=== PATIENT | female | born 1970 | race Caucasian/White ===

== ENCOUNTER → 2017-10-29 15:25 | Outpatient (CLI) | payer BC, SELFPAY ==
[2017-10-29 20:28] LABS: Chlamydia Trachomatis by PCR Negative (Negative); Neisserai gonorrhoeae by PCR Negative (Negative); Probe Check PASS; Sample Adequacy Control PASS; Specimen Processing Control PASS
[2017-11-05 15:22] LABS: HPV Reflexed? NOT INDICATED
== END ==
PROVIDERS: Visit Provider Obstetrics & Gynecology
DX: Z12.4 Encounter for screening for malignant neoplasm of cervix (principal)
CPT/HCPCS: 87491; 87591; 88175; G0145

== ENCOUNTER 2017-12-04 11:34 | Day surgery (SDC) | payer BC, SELFPAY ==
[2017-11-26 17:08] LABS: Hematocrit 38.1 % (37-47); Mean Corp Hgb Conc 34.1 g/gl (32-36); Mean Corpuscular Hgb 30.8 pg (27.0-32.0); Mean Corpuscular Volume 90.3 fL (81-99); Mean Platelet Vol. 10.5 fl (6.2-12.0); Platelet Count 314 K/mm3 (150-450); RBC Distribution Width CV 12.5 % (11.6-14.6); RBC Distribution Width SD 40.6 fl (35.1-43.9); Red Blood Count 4.22 M/mm3 (4.2-5.4); White Blood Count 8.9 K/mm3 (4.4-11.0)
[2017-11-26 17:13] LABS: Scan Indicated on CBC? Y/N NO
--- NOTE | 2017-11-28 15:51 | EKG12_ITS ---
Test Reason : RA, SLEEP AP Blood Pressure : / mmHG Vent. Rate : 063 BPM Atrial Rate : 063 BPM P-R Int : 154 ms QRS Dur : 096 ms QT Int : 402 ms P-R-T Axes : 014 024 038 degrees QTc Int : 411 ms Normal sinus rhythm Normal ECG Confirmed by KEIKO ELISE ([id number]), photography editor MATHEUS WESTBROOK ([id number]) on 12/03/2017 2:45:46 PM Referred By: Emmie Parker Confirmed By:KEIKO ELISE
[2017-11-28 16:58] LABS: International Normalized Ratio 1.1; Prothrombin Time (Protime)PT. 13.7 SECONDS (11.7-14.9)
[2017-11-28 16:59] LABS: Partial Thromboplast Time 32.6 Seconds (24.1-36.2)
[2017-11-28 17:24] LABS: AST(SGOT) 15 U/L (15-37); Alanine Aminotransfer ALT/SGPT 19 U/L (13-56); Albumin, Serum 3.7 g/dL (3.2-5.0); Alkaline Phosphatase 44 U/L (45-117); Bilirubin, Direct 0.13 mg/dL (0.00-0.30); Globulin 3.3 g/dL (2.2-4.2); Thyroid Stim Hormone (TSH) 0.62 uIU/mL (0.358-3.74)
[2017-12-04] VITALS (11 sets, daily range): BP systolic 96–137; BP diastolic 64–80; PULSE 58–96; RESP 14–18; TEMP 36.3–37.4; O2SAT 95–100; BMI 29.5
--- NOTE | 2017-12-04 12:58 | PCM.DC.VHY ---
Discharge Diet: No Restrictions Discharge Activity: May Shower, May Take a Tub Bath May resume sexual activity in: 4-6 weeks Change Dressing in (Days):: 4 Remove Dressing in (days):: 4 Cleanse incision/area with: Soap & Water, Keep Dressing Clean & Dry Additional Instructions: You may take Tylenol 500 mg tablets. 1-2 by mouth every 6 hours in addition to other pain meds given as needed for pain. Nothing in vagina for 4-6 wk. No lifting more than 20# for 4-6 wk to allow healing. OK to go up and down stairs as comfortable. Resume walking and measurement advisor activity as tolerated / comfortable. Allergies/Adverse Reactions: Allergies ceftriaxone sodium [From Rocephin] Allergy (Verified 11/27/17 15:00) Rash oxycodone Adverse Reaction (Verified 12/04/17 12:30) Nausea/Vom/Diarrhea Medications to take at Discharge Levothyroxine [Synthroid] 112 mcg PO DAILY 06/25/13 Abatacept [Orencia] 125 mg SQ FR 11/27/17 Biotin 1 mg PO DAILY 11/27/17 Folic Acid 2 mg PO DAILY@0800 11/27/17 Methotrexate 12.5 mg PO FR 11/27/17 Omeprazole 20 mg PO PRN PRN 11/27/17 leucovorin tablet 15 mg PO FR 11/27/17 Docusate Sodium [Colace] 100 mg PO BID PRN #30 cap 12/04/17 Ibuprofen 600 mg PO Q6H PRN PRN #30 tab 12/04/17 traMADol [Ultram (G)] 50 - 100 mg PO Q6H PRN PRN 7 Days #28 tablet 12/04/17 The following prescriptions were given: Ibuprofen 600 mg PO Q6H PRN PRN #30 tab PRN Reason: Mild-Mod Pain (1-5/10) traMADol [Ultram (G)] 50 - 100 mg PO Q6H PRN PRN 7 Days #28 tablet PRN Reason: Mod-Severe Pain (4-10/10) Docusate Sodium [Colace] 100 mg PO BID PRN #30 cap PRN Reason: Constipation Primary Care Physician: Leslie Buchanan MD [Primary Care Provider] - Please Follow Up With: Emmie Parker MD - [phone] When: in two weeks for postoperative appointment as scheduled Proposed Discharge Date: 12/05/17
[2017-12-04] MEDS: Clindamycin 900 MG/50 ML BAG 75 MG IV (13:04)
--- NOTE | 2017-12-04 13:05 | DCINST_ITS ---
Discharge Diet: No Restrictions Discharge Activity: May Shower, May Take a Tub Bath May resume sexual activity in: 4-6 weeks Change Dressing in (Days):: 4 Remove Dressing in (days):: 4 Cleanse incision/area with: Soap & Water, Keep Dressing Clean & Dry Additional Instructions: You may take Tylenol 500 mg tablets. 1-2 by mouth every 6 hours in addition to other pain meds given as needed for pain. Nothing in vagina for 4-6 wk. No lifting more than 20# for 4-6 wk to allow healing. OK to go up and down stairs as comfortable. Resume walking and barrel brander activity as tolerated / comfortable. Allergies/Adverse Reactions: Allergies ceftriaxone sodium [From Rocephin] Allergy (Verified 11/27/17 15:00) Rash oxycodone Adverse Reaction (Verified 12/04/17 12:30) Nausea/Vom/Diarrhea Medications to take at Discharge Levothyroxine [Synthroid] 112 mcg PO DAILY 06/25/13 Abatacept [Orencia] 125 mg SQ FR 11/27/17 Biotin 1 mg PO DAILY 11/27/17 Folic Acid 2 mg PO DAILY@0800 11/27/17 Methotrexate 12.5 mg PO FR 11/27/17 Omeprazole 20 mg PO PRN PRN 11/27/17 leucovorin tablet 15 mg PO FR 11/27/17 Docusate Sodium [Colace] 100 mg PO BID PRN #30 cap 12/04/17 Ibuprofen 600 mg PO Q6H PRN PRN #30 tab 12/04/17 traMADol [Ultram (G)] 50 - 100 mg PO Q6H PRN PRN 7 Days #28 tablet 12/04/17 The following prescriptions were given: Ibuprofen 600 mg PO Q6H PRN PRN #30 tab PRN Reason: Mild-Mod Pain (1-5/10) traMADol [Ultram (G)] 50 - 100 mg PO Q6H PRN PRN 7 Days #28 tablet PRN Reason: Mod-Severe Pain (4-10/10) Docusate Sodium [Colace] 100 mg PO BID PRN #30 cap PRN Reason: Constipation Primary Care Physician: Leslie Buchanan MD [Primary Care Provider] - Please Follow Up With: Emmie Parker MD - [phone] When: in two weeks for postoperative appointment as scheduled Proposed Discharge Date: 12/05/17
--- NOTE | 2017-12-04 13:15 | HYST_PTH ---
PATIENT: JOSE ALFREDO ZAPATA LOC: [facility] [place] U#:[id number] AGE/SX: 47/F ROOM: RE12/04/[address]: Dr. Emmie Parker MD : [id number] BED: DIS: 12/05/2017 SPEC #: [id number] RECD: 12/04/17 16:03 STATUS: MARLO ALON #: [id number] RJ: 12/04/17 13:[address]: Emmie Parker DEPT: SURGICAL PATHOLOGY RECD BY: Talat Davidson ENTERED: 12/05/17 07:47 SP TYPE: HYSTERECT OTHR DR: Dr. Leslie Buchanan MD Tissues: Uterus, NOS Procedures: Surgery Specimen Level V HEADER OPERATION: Hysterectomy, lap-assisted vaginal, salpingectomy PRE-OP DIAGNOSIS: Submucous leiomyoma of uterus, excessive bleeding in the premenopausal period TISSUE SUBMITTED: Cervix, uterus, bilateral fallopian tubes MICROSCOPIC DIAGNOSIS Cervix, uterus and bilateral fallopian tubes, vaginal hysterectomy and bilateral salpingectomy: Cervix ? mild chronic inflammation. Endometrium ? proliferative endometrium. Myometrium ? leiomyomas (largest measuring 4 cm in greatest dimension). Focal adenomyosis. Bilateral fallopian tubes - no pathologic diagnosis. SJ:rosaline 12/06/17 MICROSCOPIC DESCRIPTION Slides are reviewed. GROSS DESCRIPTION Received in fixative is one container labeled with the patient's name and designated uterus, cervix, fallopian tubes. The specimen consists of a hysterectomy specimen consisting of uterus with cervix in multiple pieces weighing 210 gm and measuring in aggregate 14 x 12 x 6 cm. Two pieces appear to contain a portion of the cervix. The ecto- and endocervical mucosa is unremarkable. The portion of endocervical canal in this piece measures 3 cm in length. Two pieces of cervix measure in aggregate 5 x 4 x 2.5 cm. The largest piece of body of the uterus measures 7 x 6.5 x 6 cm. The serosal surface in this piece appears unremarkable. Possible endometrial tissue is noted in this piece which measures 0.1 cm in thickness. Sections of the pieces of uterus reveal multiple nodular masses. The largest nodular mass measures 4 cm in greatest dimension. Sections of these masses reveal lagunas whorled cut surfaces without areas of hemorrhage, necrosis or cystic degeneration. The uninvolved uterine wall measures up to 3 cm in thickness. Also present in the container are detached bilateral fallopian tubes. One of the tubes measure 5 cm in length and 0.3 cm in diameter. The fimbrial end is identified. A Filshie clip is noted at the proximal end of this fallopian tube which appears intact. The second fallopian tube is received in two pieces. One of the pieces consists of proximal end which measures 2.5 cm in length and 0.3 cm in diameter. The second piece consists of fimbrial end measuring 1.5 x 1 x 1 cm. Sections reveal unremarkable cut surfaces. Salesperson Women'S Hats sections are submitted in ten cassettes as follows: 1 & 2 - cervix, 3 & 4 - uterine wall containing endometrium (4 also contains a section of nodular mass), 5 ? largest nodular mass, 6 & 7 ? intermediate size nodular masses, 8 ? smaller nodular masses, 9 ? one fallopian tube, 10 ? second fallopian tube received in two pieces. / JOSEF:rosaline 12/05/17 TC:1 CPT: 24799
[2017-12-04] MEDS: Bupiv/Epi 0.5% Mpf 30 ML Vial (14:45)
--- NOTE | 2017-12-04 15:17 | OP.PCM_ITS ---
Operative Report Date of Procedure: 12/04/17 PROCEDURE: Laparoscopic assisted vaginal hysterectomy. Bilateral salpingectomy Preoperative diagnosis: Enlarged, fibroid uterus. Menorrhagia Excessive bleeding in premenopause Postop diagnosis: Enlarged, fibroid uterus. Menorrhagia Excessive bleeding in premenopause Anesthesia: General Jany Gallardo CRNA and Dr Sorenson Surgeon: Emmie Parker MD Pbx Operator: Aristeo Mari, RAVINDRA Monson EBL 300 cc Complications: none Drains: Fritz draining clear yellow urine 100 cc for case Fluids: replacement LR Findings: On exam under anesthesia, Grade I prolapse of the cervix is noted. At Laparoscopy: the uterus is enlarged with multiple fibroids. Serosal fibroid at L uterine fundus. Pedunculated fibroid in L adnexa. normal fallopian tubes and ovaries bilaterally. Filshie clips in place bilaterally. There are minimal adhesions between omentum and fallopian tubes bilaterally, near Filshie clip application. Gross inspection of the bowel omentum, liver edge and gallbladder WNL. PATH: Uterus (morcellated) and bilateral fallopian tubes Narrative account: After the risks, benefits and alternatives of the procedure were reviewed with the patient , informed consent was obtained. The patient was taken to the Operative room with an IV running . She was positioned in the dorsal supine position on the operating table and given general anesthesia. Once asleep she was positioned to the dorsal lithotomy position with the arms tucked at the sides and prepped and draped in the usual sterile fashion. A Fritz catheter was inserted to drain the bladder. The weighted speculum was placed into the vagina and a single tooth tenaculum was placed at the cervix. A Ariel cannula was inserted into the cervix and secured into placed with the single - toothed tenaculum. Attention was then turned to the anterior abdominal wall. the dehydrator operator's gloves were changed and skin incisions were created at the infraumbilical and suprapubic skin and at a point approximately senior living between the suprapubic and infraumbilical skin incisions. Local anesthesia was used to infiltrate the skin where the trocar incision sites were created. A vertical 5 mm infraumbilical skin incision , a transverse 5 mm suprapubic incision and an transverse 5 mm midline incision were created. A Veress needle was inserted in to the peritoneal cavity at the infraumbilical skin incision while maintaining upward traction of the anterior abdominal wall at the umbilicus. There was free drop of saline, free flow of CO2 and low opening pressure noted. Once the intraabdominal pressure had reached approximately 15 mm Hg, the Veress needle was removed and a bladeless 5 mm trocar was inserted into the peritoneal cavity. Correct placement was confirmed using the laparoscope. Under direct visualization the other two 5 mm bladeless trocars were inserted into the peritoneal cavity. The omentum was taken down from both fallopian tubes and the fallopian tubes were retracted medially and using a LigaSure device the fallopian tubes were divided from the ovary and the mesosalpinx, leaving the fallopian tube free Each fallopian tube was brought through the suprapubic port and set aside for later path review. The uteroovarian pedicles were then divided using a [place] LigaSure device. The broad ligament was then divided down to the level of the round ligament on both sides. The pedunculated fibroid was taken off the uterus at the L adnexa for better visualization and this was left free in the anterior cul de sac. At this point the laparoscopic portion of the case was completed. The trocars were left in place, but the instruments were removed and gas turned off. A sterile drape was used to cover the abdomen. Attention was then turned to the vaginal portion of the case. The Ariel cannula was removed and the single toothed tenaculum repositioned on the cervix. The cervical mucosal was then incised circumferentially using Bovie cautery and a knife. The posterior cul de sac was entered by sharp dissection with Perkins scissors and a weighted speculum was placed into the posterior cul se sac. Dissection then was initiated at the anterior cervix to enter the anterior cul se sac. The uterosacral ligaments were clamped bilaterally with curved Lynne clamps and the pedicles divided and suture ligated and tagged for later identification. Next the cardinal ligament was clamped bilaterally and divided and suture ligated. Adequate hemostasis was noted. The anterior cul de sac peritoneum was then entered by sharp dissection and a narrow Ashburn retractor was placed into the anterior cul de sac to retract the bladder out of harm's way for the remainder of the case. The uterine arteries were clamped bilaterally , divided and suture ligated. At this point little descensus was noted due to the enlarged uterus, and morcellation was begun. Each section was removed by using either the knife or a Perkins scissors. The cervix and sequential portions of the lower uterine segment anteriorly and posteriorly as well as several separate fibroids were removed and set aside. Dissection then continued along each side of the uterus. Each pedicle was secured with a Lynne clamp, divided and suture ligated until ultimately the uterine fundus was reached. The remaining uterus and attached fallopian tubes were surgically amputated and set aside. The pedicles were then suture ligated. The superior pedicles were dry. There was bleeding noted along the posterior vaginal cuff and anterior vaginal cuff. The L uterine angle was oversewn with a figure of eight stitch of 1 Vicryl for hemostasis . The peritoneum was then closed with a running purse string suture of 1 Vicryl, incorporating the L superior pedicle and the uterosacral ligament tags. The vaginal cuff was then reapproximated using interrupted and figure of eight stitches of 1 Vicryl. Excellent hemostasis was noted. The Fritz was attached to the Fritz bag. and clear yellow urine returned. A second look was performed with the laparoscope: excellent hemostasis was noted at all pedicles and at the vaginal cuff. Yahir was sprayed along the cuff and pedicles for additional hemostasis. The pneumoperitoneum was reduced and all instruments and trocars were removed. The skin incisions were closed with 4-0 Monocryl in a subcuticular fashion. Sterile dressings were applied. ( steristrips and op sites) The patient was returned to dorsal supine position and awakened from general anesthesia. She was then transferred to the recovery room bed in stable condition after tolerating the procedure well. Sponge, lap, needle and instrument counts correct times two. Medications given preop and intraoperatively included: Gentamicin and Clindamycin were given IV fashion show director to the operating room , Marcaine with 1/200, 00 epinephrine was used as a subcutaneous injection at the trocar skin incision sites . For a complete listing of medications given preop and intraoperatively, please see the anesthesia record.
[2017-12-04] MEDS: Ketorolac 30 MG/ML Syringe IV ×2 (16:06→22:46)
[2017-12-04] MEDS: HYDROmorphone 1 MG/ML Syringe IV (18:42)
[2017-12-04] MEDS: Lactated Ringers 1,000 ML 125 ML IV (20:27)
[2017-12-04] MEDS: Acetaminophen 500 MG Tablet 1000 MG PO (22:45)
[2017-12-04] MEDS: Docusate Sodium 100 MG Capsule PO (22:45)
[2017-12-05 03:11] VITALS: BP 116/56; PULSE 64; RESP 16; TEMP 37.2; O2SAT 97
[2017-12-05] MEDS: Ketorolac 30 MG/ML Syringe IV ×2 (03:19→10:03)
[2017-12-05] MEDS: Lactated Ringers 1,000 ML 125 ML IV (04:38)
[2017-12-05] MEDS: HYDROmorphone 1 MG/ML Syringe IV (04:38)
[2017-12-05] MEDS: Levothyroxine 112 MCG Tablet PO (06:03)
[2017-12-05 07:01] LABS: Hematocrit 32.7 % (37-47); Mean Corp Hgb Conc 33.6 g/gl (32-36); Mean Corpuscular Hgb 30.9 pg (27.0-32.0); Mean Corpuscular Volume 91.9 fL (81-99); Platelet Count 272 K/mm3 (150-450); RBC Distribution Width CV 12.4 % (11.6-14.6); Red Blood Count 3.56 M/mm3 (4.2-5.4); White Blood Count 11.6 K/mm3 (4.4-11.0)
[2017-12-05 07:04] LABS: Scan Indicated on CBC? Y/N NO
[2017-12-05 07:11] LABS: Anion Gap 6 (5-15); BUN 11 mg/dL (7-18); BUN/Creat Ratio 17.2 RATIO (10-20); Chloride 105 mmol/L (98-107); Creatinine, Serum 0.64 mg/dL (0.55-1.02); EST Glomerular Filtration Rate 105 mL/min (>60); Est Glom Filt Rate - Afr Amer 127 mL/min (>60); Estimated Creatinine Clearance 109.62 ml/min; Glucose 104 mg/dL (74-106); Potassium 3.7 mmol/L (3.5-5.1); Sodium Level 138 mmol/L (136-145)
[2017-12-05] MEDS: Acetaminophen 500 MG Tablet 1000 MG PO (07:24)
[2017-12-05 07:42] VITALS: BP 143/82; PULSE 68; RESP 16; TEMP 36.6; O2SAT 100
[2017-12-05 07:45] VITALS: O2SAT 100
[2017-12-05] MEDS: Polyethylene Glycol 3350 17 GM PACKET PO (07:47)
[2017-12-05] MEDS: Docusate Sodium 100 MG Capsule PO (07:47)
[2017-12-05] MEDS: Folic Acid 1 MG Tablet 2 MG PO (07:47)
--- NOTE | 2017-12-05 09:28 | PCM.PN.OB ---
Subjective: Patient without complaints. Tolerating diet well. Minimal vaginal bleeding. Denies flatus. - Physical Exam Vital Signs AF, VSS Temp Pulse Resp BP Pulse Ox 97.9 F 68 16 143/82 H 100 12/05/17 07:42 12/05/17 07:42 12/05/17 07:42 12/05/17 07:42 12/05/17 07:45 Oxygen Delivery Method Room Air Weight: 196 lb 13.965 oz Body Mass Index (BMI) 29.5 Intake and Output for Last 24 Hours 12/03/17 12/04/17 12/05/17 23:59 23:59 23:59 Intake Total 2146 / 2146 1765 / 1765 Output Total 450 / 450 600 / 600 Balance 1696 / 1696 1165 / 1165 Laboratory Tests Past 24 Hrs 12/05/17 12/05/17 06:40 06:40 WBC 11.6 H RBC 3.56 L Hgb 11.0 L Hct 32.7 L MCV 91.9 MCH 30.9 MCHC 33.6 RDW 12.4 RDW Differential 40.0 Plt Count 272 MPV 10.0 Sodium 138 Potassium 3.7 Chloride 105 Carbon Dioxide 27.0 Anion Gap 6 BUN 11 Creatinine 0.64 Estim Creat Clear Calc 109.62 Est GFR (MDRD) Af Amer 127 Est GFR (MDRD) Non-Af 105 BUN/Creatinine Ratio 17.2 Glucose 104 Calcium 8.0 L Wounds are clean, dry, intact. Good urine output. Medical Necessity - Tobacco Use Smoking Status: Current some day smoker Tobacco Use: Cigarettes Assessment/Plan Postoperative day #1 status post LAVH Doing well. Will release to home later today if tolerating diet well and able to void on own. Patient requests Vicodin for pain control at home as she indicates that Ultram will almost certainly be insufficient. Rx given.
[2017-12-05] MEDS: Enoxaparin 40 MG/0.4 ML Syringe SC (10:03)
== END 2017-12-05 11:00 | disposition home or self-care (01) ==
LOC: SDC 11:35 → AC 11:35 → MS3 16:03
PROVIDERS: Family Provider Family Medicine; PCP Family Medicine; Visit Provider Obstetrics & Gynecology
PROC: 0UT9FZZ Resection of Uterus, Via Natural or Artificial Opening With Percutaneous Endoscopic Assistance (ICD-10-PCS; CPT 58552; principal; 2017-12-04 12:50)
DX: D25.0 Submucous leiomyoma of uterus (principal); N72 Inflammatory disease of cervix uteri; N80.0 Endometriosis of uterus; N92.4 Excessive bleeding in the premenopausal period; R87.612 Low grade squamous intraepithelial lesion on cytologic smear of cervix (LGSIL); M06.9 Rheumatoid arthritis, unspecified; I10 Essential (primary) hypertension; G47.30 Sleep apnea, unspecified; K21.9 Gastro-esophageal reflux disease without esophagitis; F17.210 Nicotine dependence, cigarettes, uncomplicated; Z79.899 Other long term (current) drug therapy; Z98.51 Tubal ligation status
CPT/HCPCS: 00840; 58552; 36415; 80048; 80076; 84443; 85027; 85610; 85730; 86850; 86900; 88307; J7120; J2405

== ENCOUNTER → 2018-02-04 15:50 | Outpatient (CLI) | payer BC, SELFPAY ==
[2018-02-04 18:16] LABS: Absolute Lymphocyte Count 1.82 X10^3/ul (0.83-4.51); Absolute Neutrophil Count 3.7 X10^3/uL (2.0-7.7); Basophil# 0.03 X10^3/uL; Basophil% 0.5 % (0-1); Eosinophils% 1.6 % (0-5); Hematocrit 39.8 % (37-47); Lymphocyte # 1.82 X10^3/ul (4.0); Lymphocyte % 29.9 % (19-41); Mean Corp Hgb Conc 32.7 g/gl (32-36); Mean Corpuscular Hgb 29.5 pg (27.0-32.0); Mean Corpuscular Volume 90.5 fL (81-99); Mean Platelet Vol. 10.3 fl (6.2-12.0); Monocyte# 0.41 X10^3/uL; Monocyte% 6.7 % (0-10); Neutrophil # 3.72 X10^3/uL (2.7-7.7); Neutrophil % 61.1 % (47-70); Platelet Count 378 K/mm3 (150-450); RBC Distribution Width CV 12.9 % (11.6-14.6); RBC Distribution Width SD 42.3 fl (35.1-43.9); White Blood Count 6.1 K/mm3 (4.4-11.0)
[2018-02-04 18:18] LABS: POSITIVE COUNT NO; POSITIVE DIFFERENTIAL NO; POSITIVE MORPHOLOGY NO
[2018-02-04 18:23] LABS: Erythrocyte Sedimentation Rate 4 mm/hr (0-20)
[2018-02-04 18:31] LABS: ALB/GLOB Ratio 1.1 RATIO (0.9-2.4); AST(SGOT) 23 U/L (15-37); Alanine Aminotransfer ALT/SGPT 33 U/L (13-56); Albumin, Serum 4.1 g/dL (3.2-5.0); Alkaline Phosphatase 58 U/L (45-117); Anion Gap 9 (5-15); BUN 18 mg/dL (7-18); BUN/Creat Ratio 20.1 RATIO (10-20); CRP < 2.90 mg/L (0.0-3.0); Calcium,Total 9.2 mg/dL (8.5-10.1); Chloride 105 mmol/L (98-107); EST Glomerular Filtration Rate 71 mL/min (>60); Est Glom Filt Rate - Afr Amer 86 mL/min (>60); Globulin 3.9 g/dL (2.2-4.2); Glucose 80 mg/dL (74-106); Potassium 3.8 mmol/L (3.5-5.1); Sodium Level 142 mmol/L (136-145)
[2018-02-08 20:06] LABS: QNTFERON TB Ag Minus Nil Value 0.03 IU/mL (.); QNTFERON TB Ag Value 0.06 IU/mL (.); QNTFERON TB Mitogen Value > 10.00 IU/mL (.); QNTFERON TB Nil Value 0.03 IU/mL (.)
[2018-02-10 09:04] LABS: QNTIFERON TB Gold Negative (Negative)
== END ==
LOC: MTLAB 15:53
PROVIDERS: Visit Provider Internal Medicine Rheumatology
DX: M06.09 Rheumatoid arthritis without rheumatoid factor, multiple sites (principal); M47.897 Other spondylosis, lumbosacral region; M47.892 Other spondylosis, cervical region; E03.9 Hypothyroidism, unspecified; M79.7 Fibromyalgia; K21.9 Gastro-esophageal reflux disease without esophagitis; Z79.899 Other long term (current) drug therapy
CPT/HCPCS: 36415; 80053; 85025; 85652; 86140; 86480

== ENCOUNTER → 2018-03-14 15:31 | Outpatient (CLI) | payer BC, SELFPAY | PROVIDERS: Family Provider Family Medicine; PCP Family Medicine; Visit Provider Obstetrics & Gynecology | DX: Z12.31 Encounter for screening mammogram for malignant neoplasm of breast (principal) | CPT/HCPCS: 77063; 77067 ==

== ENCOUNTER → 2018-05-23 16:40 | Outpatient (CLI) | payer BC, SELFPAY ==
[2018-05-23 17:53] LABS: Absolute Neutrophil Count 4.6 X10^3/uL (2.0-7.7); Basophil# 0.05 X10^3/uL; Basophil% 0.6 % (0-1); Eosinophil# 0.16 X10^3/uL; Eosinophils% 2.1 % (0-5); Hematocrit 37.4 % (37-47); Hemoglobin 12.6 g/dl (12.0-15.0); Lymphocyte % 30.9 % (19-41); Mean Corp Hgb Conc 33.7 g/gl (32-36); Mean Corpuscular Hgb 30.4 pg (27.0-32.0); Mean Corpuscular Volume 90.3 fL (81-99); Mean Platelet Vol. 10.7 fl (6.2-12.0); Monocyte# 0.54 X10^3/uL; Neutrophil # 4.57 X10^3/uL (2.7-7.7); Neutrophil % 58.9 % (47-70); Platelet Count 338 K/mm3 (150-450); RBC Distribution Width CV 12.7 % (11.6-14.6); RBC Distribution Width SD 41.7 fl (35.1-43.9); Red Blood Count 4.14 M/mm3 (4.2-5.4); White Blood Count 7.8 K/mm3 (4.4-11.0)
[2018-05-23 17:57] LABS: POSITIVE COUNT NO; POSITIVE DIFFERENTIAL NO; POSITIVE MORPHOLOGY NO
[2018-05-23 19:03] LABS: ALB/GLOB Ratio 1.1 RATIO (0.9-2.4); AST(SGOT) 15 U/L (15-37); Alanine Aminotransfer ALT/SGPT 24 U/L (13-56); Albumin, Serum 3.8 g/dL (3.2-5.0); Alkaline Phosphatase 56 U/L (45-117); Anion Gap 6 (5-15); BUN 14 mg/dL (7-18); BUN/Creat Ratio 17.1 RATIO (10-20); Calcium,Total 8.7 mg/dL (8.5-10.1); Chloride 108 mmol/L (98-107); Creatinine, Serum 0.82 mg/dL (0.55-1.02); EST Glomerular Filtration Rate 79 mL/min (>60); Est Glom Filt Rate - Afr Amer 96 mL/min (>60); Globulin 3.6 g/dL (2.2-4.2); Glucose 84 mg/dL (74-106); Potassium 3.8 mmol/L (3.5-5.1); Protein, Total 7.4 g/dL (6.4-8.2); Sodium Level 139 mmol/L (136-145)
== END ==
PROVIDERS: Family Provider Family Medicine; PCP Family Medicine; Referring Provider Internal Medicine Rheumatology; Visit Provider Internal Medicine Rheumatology
DX: M06.09 Rheumatoid arthritis without rheumatoid factor, multiple sites (principal); M47.897 Other spondylosis, lumbosacral region; M47.892 Other spondylosis, cervical region; E03.9 Hypothyroidism, unspecified; M79.7 Fibromyalgia; K21.9 Gastro-esophageal reflux disease without esophagitis; Z79.899 Other long term (current) drug therapy
CPT/HCPCS: 36415; 80053; 85025

== ENCOUNTER → 2018-08-28 07:30 | Outpatient (CLI) | payer BC, SELFPAY ==
[2018-08-28 10:17] LABS: Absolute Lymphocyte Count 1.43 X10^3/ul (0.83-4.51); Absolute Neutrophil Count 3.9 X10^3/uL (2.0-7.7); Basophil# 0.03 X10^3/uL; Basophil% 0.5 % (0-1); Eosinophil# 0.08 X10^3/uL; Eosinophils% 1.4 % (0-5); Hematocrit 40.6 % (37-47); Hemoglobin 13.2 g/dl (12.0-15.0); Lymphocyte # 1.43 X10^3/ul (4.0); Lymphocyte % 24.5 % (19-41); Mean Corp Hgb Conc 32.5 g/gl (32-36); Mean Corpuscular Hgb 30.7 pg (27.0-32.0); Mean Corpuscular Volume 94.4 fL (81-99); Mean Platelet Vol. 10.2 fl (6.2-12.0); Monocyte# 0.39 X10^3/uL; Monocyte% 6.7 % (0-10); Neutrophil # 3.88 X10^3/uL (2.7-7.7); Neutrophil % 66.6 % (47-70); Platelet Count 329 K/mm3 (150-450); RBC Distribution Width CV 13.7 % (11.6-14.6); White Blood Count 5.8 K/mm3 (4.4-11.0)
[2018-08-28 10:18] LABS: POSITIVE COUNT NO; POSITIVE DIFFERENTIAL NO; POSITIVE MORPHOLOGY NO
[2018-08-28 10:34] LABS: ALB/GLOB Ratio 1.2 RATIO (0.9-2.4); AST(SGOT) 16 U/L (15-37); Alanine Aminotransfer ALT/SGPT 28 U/L (13-56); Albumin, Serum 3.8 g/dL (3.2-5.0); Alkaline Phosphatase 47 U/L (45-117); Anion Gap 9 (5-15); BUN 14 mg/dL (7-18); BUN/Creat Ratio 17.8 RATIO (10-20); Calcium,Total 8.8 mg/dL (8.5-10.1); Chloride 104 mmol/L (98-107); Creatinine, Serum 0.79 mg/dL (0.55-1.02); EST Glomerular Filtration Rate 83 mL/min (>60); Est Glom Filt Rate - Afr Amer 100 mL/min (>60); Globulin 3.3 g/dL (2.2-4.2); Glucose 102 mg/dL (74-106); Potassium 3.8 mmol/L (3.5-5.1); Protein, Total 7.1 g/dL (6.4-8.2); Sodium Level 140 mmol/L (136-145)
== END ==
LOC: MTLAB 07:31
PROVIDERS: Family Provider Family Medicine; PCP Family Medicine; Referring Provider Internal Medicine Rheumatology; Visit Provider Internal Medicine Rheumatology
DX: M06.09 Rheumatoid arthritis without rheumatoid factor, multiple sites (principal); M79.7 Fibromyalgia; M47.897 Other spondylosis, lumbosacral region; M47.892 Other spondylosis, cervical region; E03.9 Hypothyroidism, unspecified; K21.9 Gastro-esophageal reflux disease without esophagitis; Z79.899 Other long term (current) drug therapy
CPT/HCPCS: 36415; 80053; 85025

== ENCOUNTER → 2019-01-13 15:40 | Outpatient (CLI) | payer BC, SELFPAY ==
[2017-12-04 16:46] VITALS: BMI 29.5
[2019-01-13 17:57] LABS: Absolute Neutrophil Count 4.1 X10^3/uL (2.0-7.7); Basophil# 0.03 X10^3/uL; Basophil% 0.4 % (0-1); Eosinophil# 0.27 X10^3/uL; Eosinophils% 3.8 % (0-5); Hematocrit 39.2 % (37-47); Hemoglobin 13.2 g/dl (12.0-15.0); Lymphocyte % 29.8 % (19-41); Mean Corp Hgb Conc 33.7 g/gl (32-36); Mean Corpuscular Hgb 30.1 pg (27.0-32.0); Mean Corpuscular Volume 89.5 fL (81-99); Mean Platelet Vol. 10.9 fl (6.2-12.0); Monocyte# 0.49 X10^3/uL; Neutrophil # 4.14 X10^3/uL (2.7-7.7); Neutrophil % 58.7 % (47-70); Platelet Count 318 K/mm3 (150-450); RBC Distribution Width SD 38.7 fl (35.1-43.9); Red Blood Count 4.38 M/mm3 (4.2-5.4); White Blood Count 7.1 K/mm3 (4.4-11.0)
[2019-01-13 18:05] LABS: AST(SGOT) 16 U/L (15-37); Alanine Aminotransfer ALT/SGPT 23 U/L (13-56); Albumin, Serum 3.5 g/dL (3.2-5.0); Alkaline Phosphatase 54 U/L (45-117); Anion Gap 9 (5-15); BUN 19 mg/dL (7-18); Calcium,Total 9.1 mg/dL (8.5-10.1); Chloride 107 mmol/L (98-107); Creatinine, Serum 0.95 mg/dL (0.55-1.02); EST Glomerular Filtration Rate 66 mL/min (>60); Est Glom Filt Rate - Afr Amer 80 mL/min (>60); Globulin 3.5 g/dL (2.2-4.2); Glucose 86 mg/dL (74-106); Potassium 3.8 mmol/L (3.5-5.1); Sodium Level 142 mmol/L (136-145)
[2019-01-13 18:07] LABS: POSITIVE COUNT NO; POSITIVE DIFFERENTIAL NO; POSITIVE MORPHOLOGY NO
== END ==
PROVIDERS: Family Provider Family Medicine; PCP Family Medicine; Referring Provider Internal Medicine Rheumatology; Visit Provider Internal Medicine Rheumatology
DX: M06.09 Rheumatoid arthritis without rheumatoid factor, multiple sites (principal); M79.7 Fibromyalgia; M47.897 Other spondylosis, lumbosacral region; M47.892 Other spondylosis, cervical region; E03.9 Hypothyroidism, unspecified; K21.9 Gastro-esophageal reflux disease without esophagitis; Z79.899 Other long term (current) drug therapy
CPT/HCPCS: 36415; 80053; 85025

== ENCOUNTER → 2019-04-10 14:47 | Outpatient (CLI) | payer BC, SELFPAY ==
[2019-04-10 14:47] VITALS: BMI 29.2
[2019-04-10 15:49] LABS: Absolute Lymphocyte Count 2.02 X10^3/uL (0.83-4.51); Absolute Neutrophil Count 5.7 X10^3/uL (2.0-7.7); Basophil# 0.07 X10^3/uL; Basophil% 0.8 % (0-1); Eosinophil# 0.13 X10^3/uL; Eosinophils% 1.5 % (0-5); Hematocrit 38.3 % (37-47); Hemoglobin 12.8 g/dL (12.0-15.0); Lymphocyte # 2.02 X10^3/ul (4.0); Lymphocyte % 23.7 % (19-41); Mean Corp Hgb Conc 33.4 g/dL (32-36); Mean Corpuscular Hgb 30.8 pg (27.0-32.0); Mean Corpuscular Volume 92.3 fL (81-99); Mean Platelet Vol. 10.6 fl (6.2-12.0); Monocyte# 0.56 X10^3/uL; Monocyte% 6.6 % (0-10); NRBC Flagged by Analyzer 0 % (0-5); Neutrophil # 5.71 X10^3/uL (2.7-7.7); Neutrophil % 66.9 % (47-70); Platelet Count 325 K/mm3 (150-450); RBC Distribution Width CV 12.2 % (11.6-14.6); RBC Distribution Width SD 41.8 fl (35.1-43.9); Red Blood Count 4.15 M/mm3 (4.2-5.4); White Blood Count 8.5 K/mm3 (4.4-11.0)
[2019-04-10 16:48] LABS: ALB/GLOB Ratio 1.1 RATIO (0.9-2.4); AST(SGOT) 15 U/L (15-37); Alanine Aminotransfer ALT/SGPT 23 U/L (13-56); Albumin, Serum 3.8 g/dL (3.2-5.0); Alkaline Phosphatase 53 U/L (45-117); Anion Gap 9 (5-15); BUN 16 mg/dL (7-18); Calcium,Total 9.2 mg/dL (8.5-10.1); Chloride 108 mmol/L (98-107); EST Glomerular Filtration Rate 81 mL/min (>60); Est Glom Filt Rate - Afr Amer 98 mL/min (>60); Globulin 3.4 g/dL (2.2-4.2); Glucose 78 mg/dL (74-106); Potassium 3.5 mmol/L (3.5-5.1); Protein, Total 7.2 g/dL (6.4-8.2); Sodium Level 144 mmol/L (136-145)
== END ==
PROVIDERS: Family Provider Family Medicine; PCP Family Medicine; Referring Provider Internal Medicine Rheumatology; Visit Provider Internal Medicine Rheumatology
DX: M06.09 Rheumatoid arthritis without rheumatoid factor, multiple sites (principal); M47.897 Other spondylosis, lumbosacral region; M47.892 Other spondylosis, cervical region; M79.7 Fibromyalgia; E03.9 Hypothyroidism, unspecified; K21.9 Gastro-esophageal reflux disease without esophagitis; Z79.899 Other long term (current) drug therapy
CPT/HCPCS: 36415; 80053; 85025

== ENCOUNTER 2019-07-04 03:35 | Emergency (ER) | payer BC, SELFPAY ==
[2019-04-15 13:53] VITALS: BMI 29.2
[2019-07-04 03:35] VITALS: BP 138/82; PULSE 95; RESP 20; TEMP 36.6; O2SAT 97; BMI 29.9
--- NOTE | 2019-07-04 03:59 | ED.DCSUM_ITS ---
History of Present Illness Chief Complaint: Flank Pain Informant: Patient - Abdominal Pain/Flank Pain Onset: Hours - 4 Context: Sudden Onset - woke her up from sleep Timing: Continuous Quality: Aching Location: RUQ, Right Flank Current Severity: Moderate Maximum Severity: Severe Worsened by: Nothing Relieved by: Nothing - Nausea/Vomiting/Emesis GI Symptom: Nausea, Vomiting Onset: Today Quality: Nonbilious. Negative for: Blood streaks, Coffee ground, Hematemesis Severity: Moderate - Diarrhea/Melena/Hematochezia GI Symptom: Negative for: Diarrhea, Melena, Hematochezia Associated Symptoms: Negative for: Dysuria, Frequency, Hematuria, Urgency Narrative: Last ate a piece of pizza a couple hours before onset of pain which woke her up from sleep suddenly. Feels like it is going into her right upper back. For the first 3 hours it was pretty intense and not colicky, although now it has eased off but still painful. Prior similar symptoms: No Recent Illness/Hospitalization: No - Past Medical History (1) Hypothyroid Status: Chronic (2) GERD (gastroesophageal reflux disease) Status: Chronic Past Medical History - Allergies and Home Meds Allergies/Adverse Reactions: Allergies ceftriaxone sodium [From Rocephin] Allergy (Verified 07/04/19 03:38) Rash oxycodone Adverse Reaction (Verified 07/04/19 03:38) Nausea/Vom/Diarrhea Primary Care Physician: Dinora Serra DO [Primary Care Provider] - 3-5 Days if not improving Surgical History: hysterectomy Smoking Status: Former smoker Alcohol: None Drugs: None Review of Systems General: Denies: Chills, Fever, Sweats Eyes: Denies: Visual changes - bilaterally, Diplopia ENT: Denies: Rhinorrhea, Sore throat Cardiovascular: Denies: Chest pain, Palpitations Respiratory: Denies: Dyspnea, Cough, Dyspnea on exertion Gastrointestinal: Reports: Abdominal pain, Nausea, Vomiting. Denies: Diarrhea, Melena, Hematochezia Genitourinary: Denies: Dysuria, Hematuria, Frequency Musculoskeletal: Reports: Back pain. Denies: Neck pain, Swelling, Extremity Pain Skin: Denies: Rash, Wounds Neurological: Denies: Headache, Weakness, Numbness Physical Exam Vital Signs/Narrative: Vital Signs Temp Pulse Resp BP Pulse Ox 07/04/19 03:35 97.9 F 95 20 H 138/82 H 97 Inital Vital Signs reviewed: Yes General: Well nourished, Well developed, Acute Distress - mild painful Head: Normocephalic, Atraumatic Eyes: Perrl, EOMI ENT: Moist mucous membranes, No rhinorrhea Neck: Supple, Nontender Cardiovascular: Regular rate, Regular rhythm, No murmurs Respiratory: No distress, CTA bilaterally, Chest nontender Abdomen: Soft, Nondistended, Normal bowel sounds, Tender - diffusely, but RUQ significantly worse, Rodriguez's sign. Negative for: Rebound tenderness Back: Nontender, Normal Inspection. Negative for: CVA tenderness Extremities: Nontender, No edema Skin: Normal color, No rash, No Trauma Neurological: Alert, Oriented x3, Cranial nerves II-XII grossly intact, Normal Strength, Normal Sensation, Normal Gait Psychological: Normal affect, Normal Mood Diagnostic/Tx/Re-eval Impressions Abdomen/Pelvis CT 07/04/19 03:59 IMPRESSION: Scattered diverticulosis with no signs of diverticulitis. Possible recent superimposition of enteritis. No acute appendicitis. No bowel obstruction. Small calcified granulomas within the liver, otherwise normal abdominal viscera. Electronically Signed: Jenny Pizarro MD at 4:48 EST , Service support , 07/04/19 03:59 Abdomen/Pelvis without Cont [CT] Stat Laboratory Results 07/04/19 07/04/19 07/04/19 03:50 03:50 05:12 WBC 8.9 RBC 4.48 Hgb 14.1 Hct 40.9 MCV 91.3 MCH 31.5 MCHC 34.5 RDW Std Deviation 40.4 RDW Coeff of Jyothi 12.1 Plt Count 262 MPV 10.3 Immature Gran % (Auto) 0.400 Neut % (Auto) 86.1 H Lymph % (Auto) 6.6 L Warrick % (Auto) 5.7 Eos % (Auto) 1.0 Baso % (Auto) 0.2 Absolute Neuts (auto) 7.7 Absolute Lymphs (auto) 0.59 L Nucleated RBC % 0 Differential Comment Sodium 142 Potassium 3.9 Chloride 109 H Carbon Dioxide 26.0 Anion Gap 7 BUN 15 Creatinine 0.79 Estim Creat Clear Calc 86.90 Est GFR (MDRD) Af Amer 100 Est GFR (MDRD) Non-Af 82 BUN/Creatinine Ratio 19.0 Glucose 117 H Calcium 8.6 Total Bilirubin 0.60 AST 17 ALT 28 Alkaline Phosphatase 42 L Total Protein 7.0 Albumin 3.7 Globulin 3.3 Albumin/Globulin Ratio 1.1 Lipase 237 Urine Color Yellow Urine Clarity Sl. Cloudy Urine pH 6.0 Ur Specific Fifield 1.015 Urine Protein Negative Urine Glucose (UA) Normal Urine Ketones Negative Urine Occult Blood Negative Urine Nitrite Negative Urine Bilirubin Negative Urine Urobilinogen Normal Ur Leukocyte Esterase Negative Urine RBC 0 SEEN Urine WBC 0 SEEN Ur Squamous Epith Cells 0-5 SEEN Urine Bacteria RARE Urine Mucus 0 SEEN - Medical Decision Making CT shows nonspecific bowel findings but no acute abnormality to explain her symptoms definitively. Her labs are fairly unremarkable. In considering biliary colic, she was initially treated with IV fluids, Zofran, Toradol, morphine. She was still in quite a bit of discomfort and stating that she felt like she was cramping all over and feeling bloated. I performed a bedside ultrasound of the gallbladder which shows no stones or focal shadowing. It appears mildly distended and I see no gross wall thickening. Certainly a calculus cholecystitis is a consideration here but given that she is having diffuse symptoms and tenderness, I wonder if this is GI in etiology. Radiology suggests that her CT may show an enteritis pattern. She has had no diarrhea so far but certainly she is early in the process of what ever is causing this and could develop that. Treated with GI cocktail and simethicone along with dicyclomine. She did not have major improvement. She feels like she needs to have a bowel movement, she eventually went and had a couple of small hard feces, this caused her to vomit, she was not feeling well and given Phenergan and then. Subsequently she is feeling nauseated and finally started having diarrhea which makes more sense given the CT results and her symptoms. This makes me suspect she may just have either viral gastroenteritis or foodborne illness, not that she is necessarily at specific risk for that. She is feeling dizzy/lightheaded, so at this time she is getting another liter of IV fluids and observed. ED Disposition - Plan for ED Patient: Disposition: Home or Assisted Living Diagnosis: Acute gastroenteritis Instructions: GASTROENTERITIS, Viral (6y-Adult) Prescriptions: Ondansetron [Zofran Odt] 4 mg PO Q8H PRN PRN #10 tab PRN Reason: Nausea Prescription Printed Referrals: Dinora Serra DO [Primary Care Provider] - 3-5 Days if not improving Additional Instructions: Plenty of fluids and rest. [place] diet and increase slowly as tolerated. Zofran as needed for nausea. Follow-up with your doctor if not improving.
--- NOTE | 2019-07-04 03:59 | CT_ITS ---
STUDY: CT ABDOMEN AND PELVIS WITHOUT CONTRAST REASON FOR EXAM: Female, 49 years old. Right upper quadrant pain. History of hypertension. RADIATION DOSAGE (If Supplied By Facility): CTDIvol = ( 10.83 ) mGy, DLP = ( 608.69 ) mGycm TECHNIQUE: Transaxial images were obtained from the dome of the diaphragm to the symphysis pubis without oral contrast, and without intravenous contrast. Sagittal and coronal images were reconstructed. Individualized dose optimization techniques were used for this CT. COMPARISON: None. FINDINGS: The visualized lung bases are unremarkable. The visualized portions of the heart are within normal limits. Punctate calcification within the spleen may relate indicate sequela previous granulomatous infection. Otherwise normal liver. Normal gallbladder and extrahepatic biliary system. Normal spleen. Normal pancreas. Normal bilateral adrenal glands. Normal right kidney. Normal left kidney. Some mild hiatal hernia. Remainder of the stomach is unremarkable. Normal small intestine. The radius with some degree of increased fecal debris within the descending colon which may indicate underlying constipation. There is scattered diverticulosis with no signs of diverticulitis. There is fluid within the right colon which may indicate recent enteritis. The appendix is visualized and appears normal. Normal abdominal aorta. Normal inferior vena cava. Normal retroperitoneum. Normal urinary bladder. There is absence of the uterus consistent with a prior hysterectomy. Trace amount of free fluid in the cul-de-sac seen. Normal abdominal wall. There are diffuse degenerative changes of the visualized lumbar spine. CT/Abdomen/Pelvis without Cont IMPRESSION: Scattered diverticulosis with no signs of diverticulitis. Possible recent superimposition of enteritis. No acute appendicitis. No bowel obstruction. Small calcified granulomas within the liver, otherwise normal abdominal viscera. Electronically Signed: Jenny Pizarro MD at 4:48 EST , Service support ,
[2019-07-04 04:05] LABS: Absolute Lymphocyte Count 0.59 X10^3/uL (0.83-4.51); Absolute Neutrophil Count 7.7 X10^3/uL (2.0-7.7); Basophil# 0.02 X10^3/uL; Basophil% 0.2 % (0-1); Eosinophil# 0.09 X10^3/uL; Hematocrit 40.9 % (37-47); Hemoglobin 14.1 g/dL (12.0-15.0); Lymphocyte # 0.59 X10^3/ul (4.0); Lymphocyte % 6.6 % (19-41); Mean Corp Hgb Conc 34.5 g/dL (32-36); Mean Corpuscular Hgb 31.5 pg (27.0-32.0); Mean Corpuscular Volume 91.3 fL (81-99); Mean Platelet Vol. 10.3 fl (6.2-12.0); Monocyte# 0.51 X10^3/uL; Monocyte% 5.7 % (0-10); NRBC Flagged by Analyzer 0 % (0-5); Neutrophil # 7.65 X10^3/uL (2.7-7.7); Neutrophil % 86.1 % (47-70); POSITIVE DIFFERENTIAL YES; Platelet Count 262 K/mm3 (150-450); RBC Distribution Width CV 12.1 % (11.6-14.6); RBC Distribution Width SD 40.4 fl (35.1-43.9); Red Blood Count 4.48 M/mm3 (4.2-5.4); White Blood Count 8.9 K/mm3 (4.4-11.0)
[2019-07-04] MEDS: Ondansetron 4 MG/2 ML Vial IV (04:14)
[2019-07-04] MEDS: Ketorolac 30 MG/ML Syringe IV (04:15)
[2019-07-04] MEDS: Morphine 4 MG/ML Syringe IV (04:16)
[2019-07-04 04:18] LABS: Differential Indicated SCAN CRITERIA MET
[2019-07-04] MEDS: 0.9% Normal Saline 1,000 ML 1000 ML IV (04:18)
[2019-07-04 04:20] LABS: ALB/GLOB Ratio 1.1 RATIO (0.9-2.4); AST(SGOT) 17 U/L (15-37); Alanine Aminotransfer ALT/SGPT 28 U/L (13-56); Albumin, Serum 3.7 g/dL (3.2-5.0); Alkaline Phosphatase 42 U/L (45-117); Anion Gap 7 (5-15); BUN 15 mg/dL (7-18); Calcium,Total 8.6 mg/dL (8.5-10.1); Chloride 109 mmol/L (98-107); Creatinine, Serum 0.79 mg/dL (0.55-1.02); EST Glomerular Filtration Rate 82 mL/min (>60); Est Glom Filt Rate - Afr Amer 100 mL/min (>60); Globulin 3.3 g/dL (2.2-4.2); Glucose 117 mg/dL (74-106); Lipase 237 U/L (73-393); Potassium 3.9 mmol/L (3.5-5.1); Sodium Level 142 mmol/L (136-145)
[2019-07-04 05:17] LABS: Mucous, Urine 0 SEEN /hpf (<or=2+); Red Blood Cells-Urine 0 SEEN /hpf (0-5); White Blood Cells 0 SEEN /hpf (0-5)
[2019-07-04 05:18] LABS: Color, Urine Yellow (Yellow); Glucose, Dipstick Normal (Normal); Ketone-Dipstick Negative (Negative); Leukocyte Esterase-Dipstick Negative /ul (Negative); Nitrite-Dipstick Negative (Negative); Occult Blood-Urine Negative /ul (Negative); Protein-Dipstick Negative (Negative); Specific Gravity, Urine 1.015 (1.002-1.030); Urine Bilirubin Dipstick Negative (Negative); Urine Clarity Sl. Cloudy (Clear); Urine Urobilinogen Normal (Normal)
[2019-07-04 05:23] LABS: Bacteria RARE /hpf (None Seen); Squamous Epithelial Cells - UA 0-5 SEEN /hpf (5-10)
[2019-07-04] MEDS: Dicyclomine 10 MG Capsule 20 MG PO (05:30)
[2019-07-04] MEDS: Mag Hydrox/Al Hydrox/Simeth 30 ML UDC PO (05:31)
[2019-07-04 05:38] VITALS: BP 101/48; PULSE 83; RESP 18; O2SAT 96
[2019-07-04] MEDS: proMETHazine 25 MG/ML Syringe 6.25 MG IV (06:11)
[2019-07-04 07:48] VITALS: BP 112/54; PULSE 92; RESP 16; O2SAT 98
[2019-07-04] MEDS: Acetaminophen 500 MG Tablet 1000 MG PO (07:50)
--- NOTE | 2019-07-04 07:51 | ED.DEP ---
ED Disposition - Plan for ED Patient: Disposition: Home or Assisted Living Diagnosis: Acute gastroenteritis Instructions: GASTROENTERITIS, Viral (6y-Adult) Prescriptions: Ondansetron [Zofran Odt] 4 mg PO Q8H PRN PRN #10 tab PRN Reason: Nausea Prescription Printed Referrals: Dinora Serra DO [Primary Care Provider] - 3-5 Days if not improving Additional Instructions: Plenty of fluids and rest. [place] diet and increase slowly as tolerated. Zofran as needed for nausea. Follow-up with your doctor if not improving.
[2019-07-04] MEDS: 0.9% Normal Saline 1,000 ML 999 ML IV (07:54)
[2019-07-04 09:18] VITALS: BP 124/73; PULSE 84; RESP 16; O2SAT 98
== END 2019-07-04 09:19 | disposition home or self-care (01) ==
PROVIDERS: Emergency Provider Emergency Medicine; Family Provider Family Medicine; PCP Family Medicine
DX: K52.9 Noninfective gastroenteritis and colitis, unspecified (principal); I10 Essential (primary) hypertension; E03.9 Hypothyroidism, unspecified; K21.9 Gastro-esophageal reflux disease without esophagitis; Z88.5 Allergy status to narcotic agent; Z88.1 Allergy status to other antibiotic agents; Z87.891 Personal history of nicotine dependence; Z90.710 Acquired absence of both cervix and uterus
CPT/HCPCS: 74176; 80053; 81001; 83690; 85025; 96361; 96374; 96375; 99285; J7030; A4216; J2405

== ENCOUNTER → 2019-07-09 09:13 | Outpatient (CLI) | payer BC, SELFPAY ==
[2019-07-04 03:35] VITALS: BMI 29.9
[2019-07-09 10:25] LABS: Absolute Lymphocyte Count 2.18 X10^3/uL (0.83-4.51); Absolute Neutrophil Count 4.4 X10^3/uL (2.0-7.7); Basophil# 0.03 X10^3/uL; Basophil% 0.4 % (0-1); Eosinophil# 0.09 X10^3/uL; Eosinophils% 1.2 % (0-5); Hematocrit 37.5 % (37-47); Hemoglobin 12.9 g/dL (12.0-15.0); Lymphocyte # 2.18 X10^3/ul (4.0); Lymphocyte % 30.1 % (19-41); Mean Corp Hgb Conc 34.4 g/dL (32-36); Mean Corpuscular Hgb 31.2 pg (27.0-32.0); Mean Corpuscular Volume 90.8 fL (81-99); Mean Platelet Vol. 10.3 fl (6.2-12.0); Monocyte# 0.52 X10^3/uL; Monocyte% 7.2 % (0-10); NRBC Flagged by Analyzer 0 % (0-5); Neutrophil # 4.38 X10^3/uL (2.7-7.7); Neutrophil % 60.5 % (47-70); Platelet Count 351 K/mm3 (150-450); RBC Distribution Width CV 12.2 % (11.6-14.6); RBC Distribution Width SD 40.1 fl (35.1-43.9); Red Blood Count 4.13 M/mm3 (4.2-5.4); White Blood Count 7.2 K/mm3 (4.4-11.0)
[2019-07-09 10:59] LABS: ALB/GLOB Ratio 1.2 RATIO (0.9-2.4); AST(SGOT) 22 U/L (15-37); Alanine Aminotransfer ALT/SGPT 54 U/L (13-56); Alkaline Phosphatase 44 U/L (45-117); Anion Gap 8 (5-15); BUN 13 mg/dL (7-18); BUN/Creat Ratio 19.7 RATIO (10-20); Calcium,Total 9.3 mg/dL (8.5-10.1); Chloride 107 mmol/L (98-107); Creatinine, Serum 0.66 mg/dL (0.55-1.02); EST Glomerular Filtration Rate 101 mL/min (>60); Est Glom Filt Rate - Afr Amer 122 mL/min (>60); Globulin 3.4 g/dL (2.2-4.2); Glucose 97 mg/dL (74-106); Potassium 3.7 mmol/L (3.5-5.1); Protein, Total 7.4 g/dL (6.4-8.2); Sodium Level 139 mmol/L (136-145)
== END ==
PROVIDERS: Family Provider Family Medicine; PCP Family Medicine; Referring Provider Internal Medicine Rheumatology; Visit Provider Internal Medicine Rheumatology
DX: M06.09 Rheumatoid arthritis without rheumatoid factor, multiple sites (principal); M79.7 Fibromyalgia; E03.9 Hypothyroidism, unspecified; K21.9 Gastro-esophageal reflux disease without esophagitis; Z79.899 Other long term (current) drug therapy
CPT/HCPCS: 36415; 80053; 85025

== ENCOUNTER → 2019-10-02 13:44 | Outpatient (CLI) | payer BC, SELFPAY ==
[2019-10-02 13:54] LABS: Pathologist Comment May follow
[2019-10-02 14:25] LABS: Synovial Fld Mononuclear WBC % 90.6 %; Synovial Fld Polynuclear WBC # 0.042 10^3/uL; Synovial Fld Polynuclear WBC % 9.4 %
[2019-10-02 14:44] LABS: AUTO B FLUID DILUENT BKGD CT WBC <0.1 RBC <0.01 (W<.1,R<.01); Source- Body Fluid SYNOVIAL
[2019-10-02 14:45] LABS: Appearance /Synovial Fluid Clear (CLEAR); Color / Synovial Fluid Yellow (Pale Yellow)
[2019-10-02 14:46] LABS: Body Fluid QC Type(s) BF1Q,BF2Q
[2019-10-02 15:15] LABS: Lymph 7 %; Monocyte /Synovial Fluid 81 %; Neutrophil 12 % (0-25)
[2019-10-02 15:30] LABS: RBC /Synovial Fluid 52 /mm3 (0)
[2019-10-07 10:16] LABS: Pathologist Review Reviewed
== END ==
LOC: LAB 13:46 → LABSPEC 13:49
PROVIDERS: PCP Family Medicine; Referring Provider Internal Medicine Rheumatology; Visit Provider Internal Medicine Rheumatology
DX: M06.09 Rheumatoid arthritis without rheumatoid factor, multiple sites (principal); M79.7 Fibromyalgia; E03.9 Hypothyroidism, unspecified; G47.33 Obstructive sleep apnea (adult) (pediatric); K21.9 Gastro-esophageal reflux disease without esophagitis; Z79.899 Other long term (current) drug therapy
CPT/HCPCS: 87070; 87075; 87205; 89050; 89051; 89060

== ENCOUNTER → 2019-10-15 16:30 | Outpatient (CLI) | payer BC, SELFPAY ==
[2019-10-15 17:56] LABS: Absolute Neutrophil Count 5.5 X10^3/uL (2.0-7.7); Basophil# 0.05 X10^3/uL; Basophil% 0.6 % (0-1); Eosinophil# 0.15 X10^3/uL; Eosinophils% 1.7 % (0-5); Hematocrit 37.7 % (37-47); Hemoglobin 12.3 g/dL (12.0-15.0); Lymphocyte % 28.1 % (19-41); Mean Corp Hgb Conc 32.6 g/dL (32-36); Monocyte% 6.7 % (0-10); NRBC Flagged by Analyzer 0 % (0-5); Neutrophil # 5.54 X10^3/uL (2.7-7.7); Neutrophil % 62.2 % (47-70); Platelet Count 341 K/mm3 (150-450); RBC Distribution Width CV 13.1 % (11.6-14.6); RBC Distribution Width SD 44.6 fl (35.1-43.9); Red Blood Count 3.97 M/mm3 (4.2-5.4); White Blood Count 8.9 K/mm3 (4.4-11.0)
[2019-10-15 18:31] LABS: ALB/GLOB Ratio 1.2 RATIO (0.9-2.4); AST(SGOT) 16 U/L (15-37); Alanine Aminotransfer ALT/SGPT 25 U/L (13-56); Albumin, Serum 3.7 g/dL (3.2-5.0); Alkaline Phosphatase 56 U/L (45-117); Anion Gap 6 (5-15); BUN 19 mg/dL (7-18); BUN/Creat Ratio 26.6 RATIO (10-20); Calcium,Total 8.8 mg/dL (8.5-10.1); Chloride 108 mmol/L (98-107); Creatinine, Serum 0.71 mg/dL (0.55-1.02); EST Glomerular Filtration Rate 92 mL/min (>60); Est Glom Filt Rate - Afr Amer 112 mL/min (>60); Globulin 3.2 g/dL (2.2-4.2); Glucose 69 mg/dL (74-106); Potassium 3.7 mmol/L (3.5-5.1); Protein, Total 6.9 g/dL (6.4-8.2); Sodium Level 141 mmol/L (136-145)
== END ==
PROVIDERS: PCP Family Medicine; Referring Provider Internal Medicine Rheumatology; Visit Provider Internal Medicine Rheumatology
DX: M06.09 Rheumatoid arthritis without rheumatoid factor, multiple sites (principal); E03.9 Hypothyroidism, unspecified; M79.7 Fibromyalgia; K21.9 Gastro-esophageal reflux disease without esophagitis; Z79.899 Other long term (current) drug therapy
CPT/HCPCS: 36415; 80053; 85025

== ENCOUNTER → 2020-01-19 15:59 | Outpatient (CLI) | payer BC, SELFPAY ==
[2020-01-19 17:46] LABS: Absolute Lymphocyte Count 2.11 X10^3/uL (0.83-4.51); Absolute Neutrophil Count 3.5 X10^3/uL (2.0-7.7); Basophil# 0.03 X10^3/uL; Basophil% 0.5 % (0-1); Eosinophil# 0.09 X10^3/uL; Eosinophils% 1.5 % (0-5); Hematocrit 38.6 % (37-47); Hemoglobin 12.6 g/dL (12.0-15.0); Lymphocyte # 2.11 X10^3/ul (4.0); Lymphocyte % 34.2 % (19-41); Mean Corp Hgb Conc 32.6 g/dL (32-36); Mean Corpuscular Hgb 31.1 pg (27.0-32.0); Mean Corpuscular Volume 95.3 fL (81-99); Mean Platelet Vol. 10.5 fl (6.2-12.0); Monocyte# 0.44 X10^3/uL; Monocyte% 7.1 % (0-10); NRBC Flagged by Analyzer 0 % (0-5); Neutrophil # 3.48 X10^3/uL (2.7-7.7); Neutrophil % 56.4 % (47-70); Platelet Count 332 K/mm3 (150-450); RBC Distribution Width CV 11.8 % (11.6-14.6); RBC Distribution Width SD 40.9 fl (35.1-43.9); Red Blood Count 4.05 M/mm3 (4.2-5.4); White Blood Count 6.2 K/mm3 (4.4-11.0)
[2020-01-19 18:03] LABS: ALB/GLOB Ratio 1.1 RATIO (0.9-2.4); AST(SGOT) 15 U/L (15-37); Alanine Aminotransfer ALT/SGPT 22 U/L (13-56); Albumin, Serum 3.6 g/dL (3.2-5.0); Alkaline Phosphatase 46 U/L (45-117); Anion Gap 7 (5-15); BUN 17 mg/dL (7-18); BUN/Creat Ratio 23.4 RATIO (10-20); Calcium,Total 9.4 mg/dL (8.5-10.1); Chloride 101 mmol/L (98-107); Creatinine, Serum 0.73 mg/dL (0.55-1.02); EST Glomerular Filtration Rate 90 mL/min (>60); Est Glom Filt Rate - Afr Amer 109 mL/min (>60); Globulin 3.2 g/dL (2.2-4.2); Glucose 99 mg/dL (74-106); Potassium 3.8 mmol/L (3.5-5.1); Protein, Total 6.8 g/dL (6.4-8.2); Sodium Level 137 mmol/L (136-145)
== END ==
PROVIDERS: PCP Family Medicine; Referring Provider Internal Medicine Rheumatology; Visit Provider Internal Medicine Rheumatology
DX: M06.09 Rheumatoid arthritis without rheumatoid factor, multiple sites (principal); M79.7 Fibromyalgia; M25.561 Pain in right knee; E03.9 Hypothyroidism, unspecified; G47.33 Obstructive sleep apnea (adult) (pediatric); K21.9 Gastro-esophageal reflux disease without esophagitis; Z79.899 Other long term (current) drug therapy
CPT/HCPCS: 36415; 80053; 85025

== ENCOUNTER → 2020-04-20 16:16 | Outpatient (CLI) | payer BC, SELFPAY ==
[2020-04-20 18:07] LABS: Absolute Lymphocyte Count 1.87 X10^3/uL (0.83-4.51); Absolute Neutrophil Count 3.4 X10^3/uL (2.0-7.7); Basophil# 0.05 X10^3/uL; Basophil% 0.9 % (0-1); Eosinophils% 1.7 % (0-5); Hematocrit 40.7 % (37-47); Hemoglobin 13.4 g/dL (12.0-15.0); Lymphocyte # 1.87 X10^3/ul (4.0); Lymphocyte % 31.9 % (19-41); Mean Corp Hgb Conc 32.9 g/dL (32-36); Mean Corpuscular Hgb 30.5 pg (27.0-32.0); Mean Corpuscular Volume 92.7 fL (81-99); Mean Platelet Vol. 10.3 fl (6.2-12.0); Monocyte# 0.44 X10^3/uL; Monocyte% 7.5 % (0-10); NRBC Flagged by Analyzer 0 % (0-5); Neutrophil # 3.37 X10^3/uL (2.7-7.7); Neutrophil % 57.5 % (47-70); Platelet Count 353 K/mm3 (150-450); RBC Distribution Width CV 12.2 % (11.6-14.6); RBC Distribution Width SD 41.9 fl (35.1-43.9); Red Blood Count 4.39 M/mm3 (4.2-5.4); White Blood Count 5.9 K/mm3 (4.4-11.0)
[2020-04-20 18:24] LABS: AST(SGOT) 12 U/L (15-37); Alanine Aminotransfer ALT/SGPT 22 U/L (13-56); Albumin, Serum 3.7 g/dL (3.2-5.0); Alkaline Phosphatase 56 U/L (45-117); Anion Gap 4 (5-15); BUN 14 mg/dL (7-18); BUN/Creat Ratio 18.1 RATIO (10-20); Calcium,Total 9.1 mg/dL (8.5-10.1); Chloride 107 mmol/L (98-107); Creatinine, Serum 0.77 mg/dL (0.55-1.02); EST Glomerular Filtration Rate 84 mL/min (>60); Est Glom Filt Rate - Afr Amer 102 mL/min (>60); Globulin 3.8 g/dL (2.2-4.2); Glucose 117 mg/dL (74-106); Potassium 3.3 mmol/L (3.5-5.1); Protein, Total 7.5 g/dL (6.4-8.2); Sodium Level 140 mmol/L (136-145)
== END ==
PROVIDERS: PCP Family Medicine; Referring Provider Internal Medicine Rheumatology; Visit Provider Internal Medicine Rheumatology
DX: M06.09 Rheumatoid arthritis without rheumatoid factor, multiple sites (principal); M19.041 Primary osteoarthritis, right hand; E03.9 Hypothyroidism, unspecified; M79.7 Fibromyalgia; G47.33 Obstructive sleep apnea (adult) (pediatric); K21.9 Gastro-esophageal reflux disease without esophagitis; Z79.899 Other long term (current) drug therapy
CPT/HCPCS: 36415; 80053; 85025

== ENCOUNTER → 2020-08-23 16:38 | Outpatient (CLI) | payer BC, SELFPAY ==
[2020-08-23 18:01] LABS: Absolute Lymphocyte Count 2.03 X10^3/uL (0.83-4.51); Absolute Neutrophil Count 3.5 X10^3/uL (2.0-7.7); Basophil# 0.05 X10^3/uL; Basophil% 0.8 % (0-1); Eosinophil# 0.11 X10^3/uL; Eosinophils% 1.8 % (0-5); Hematocrit 40.2 % (37-47); Hemoglobin 12.9 g/dL (12.0-15.0); Lymphocyte # 2.03 X10^3/ul (4.0); Lymphocyte % 33.1 % (19-41); Mean Corp Hgb Conc 32.1 g/dL (32-36); Mean Corpuscular Hgb 30.4 pg (27.0-32.0); Mean Corpuscular Volume 94.8 fL (81-99); Mean Platelet Vol. 10.7 fl (6.2-12.0); Monocyte# 0.45 X10^3/uL; Monocyte% 7.3 % (0-10); NRBC Flagged by Analyzer 0 % (0-5); Neutrophil # 3.48 X10^3/uL (2.7-7.7); Neutrophil % 56.7 % (47-70); Platelet Count 342 K/mm3 (150-450); RBC Distribution Width CV 11.8 % (11.6-14.6); RBC Distribution Width SD 40.8 fl (35.1-43.9); Red Blood Count 4.24 M/mm3 (4.2-5.4); White Blood Count 6.1 K/mm3 (4.4-11.0)
[2020-08-23 18:18] LABS: ALB/GLOB Ratio 1.1 RATIO (0.9-2.4); AST(SGOT) 14 U/L (15-37); Alanine Aminotransfer ALT/SGPT 21 U/L (13-56); Albumin, Serum 3.8 g/dL (3.2-5.0); Alkaline Phosphatase 52 U/L (45-117); Anion Gap 4 (5-15); BUN 15 mg/dL (7-18); BUN/Creat Ratio 16.9 RATIO (10-20); Calcium,Total 8.8 mg/dL (8.5-10.1); Chloride 106 mmol/L (98-107); Creatinine, Serum 0.89 mg/dL (0.55-1.02); EST Glomerular Filtration Rate 71 mL/min (>60); Est Glom Filt Rate - Afr Amer 86 mL/min (>60); Globulin 3.4 g/dL (2.2-4.2); Glucose 83 mg/dL (74-106); Potassium 3.9 mmol/L (3.5-5.1); Protein, Total 7.2 g/dL (6.4-8.2); Sodium Level 139 mmol/L (136-145)
== END ==
LOC: MTLAB 16:40
PROVIDERS: PCP Family Medicine; Referring Provider Internal Medicine Rheumatology; Visit Provider Internal Medicine Rheumatology
DX: M06.09 Rheumatoid arthritis without rheumatoid factor, multiple sites (principal); M79.7 Fibromyalgia; M19.041 Primary osteoarthritis, right hand; M19.042 Primary osteoarthritis, left hand; E03.9 Hypothyroidism, unspecified; K21.9 Gastro-esophageal reflux disease without esophagitis; G47.33 Obstructive sleep apnea (adult) (pediatric); Z79.899 Other long term (current) drug therapy
CPT/HCPCS: 36415; 80053; 85025

== ENCOUNTER → 2020-11-08 16:25 | Outpatient (CLI) | payer BC, SELFPAY ==
[2020-11-08 18:09] LABS: Absolute Lymphocyte Count 2.67 X10^3/uL (0.83-4.51); Basophil# 0.07 X10^3/uL; Basophil% 0.7 % (0-1); Eosinophil# 0.07 X10^3/uL; Eosinophils% 0.7 % (0-5); Hemoglobin 13.3 g/dL (12.0-15.0); Lymphocyte # 2.67 X10^3/ul (4.0); Lymphocyte % 27.4 % (19-41); Mean Corp Hgb Conc 33.3 g/dL (32-36); Mean Corpuscular Hgb 31.5 pg (27.0-32.0); Mean Corpuscular Volume 94.8 fL (81-99); Mean Platelet Vol. 10.3 fl (6.2-12.0); Monocyte# 0.86 X10^3/uL; Monocyte% 8.8 % (0-10); NRBC Flagged by Analyzer 0 % (0-5); Neutrophil % 61.7 % (47-70); Platelet Count 369 K/mm3 (150-450); RBC Distribution Width CV 12.4 % (11.6-14.6); RBC Distribution Width SD 42.7 fl (35.1-43.9); Red Blood Count 4.22 M/mm3 (4.2-5.4); White Blood Count 9.7 K/mm3 (4.4-11.0)
[2020-11-08 18:38] LABS: ALB/GLOB Ratio 1.2 RATIO (0.9-2.4); AST(SGOT) 19 U/L (15-37); Alanine Aminotransfer ALT/SGPT 22 U/L (13-56); Albumin, Serum 4.1 g/dL (3.2-5.0); Alkaline Phosphatase 54 U/L (45-117); Anion Gap 4 (5-15); BUN 22 mg/dL (7-18); Calcium,Total 9.4 mg/dL (8.5-10.1); Chloride 103 mmol/L (98-107); Creatinine, Serum 0.92 mg/dL (0.55-1.02); EST Glomerular Filtration Rate 69 mL/min (>60); Est Glom Filt Rate - Afr Amer 83 mL/min (>60); Globulin 3.3 g/dL (2.2-4.2); Glucose 77 mg/dL (74-106); Potassium 3.5 mmol/L (3.5-5.1); Protein, Total 7.4 g/dL (6.4-8.2); Sodium Level 136 mmol/L (136-145)
== END ==
PROVIDERS: PCP Family Medicine; Referring Provider Internal Medicine Rheumatology; Visit Provider Internal Medicine Rheumatology
DX: M06.09 Rheumatoid arthritis without rheumatoid factor, multiple sites (principal); M79.7 Fibromyalgia; M19.041 Primary osteoarthritis, right hand; K21.9 Gastro-esophageal reflux disease without esophagitis; E03.9 Hypothyroidism, unspecified; G47.33 Obstructive sleep apnea (adult) (pediatric); Z79.899 Other long term (current) drug therapy
CPT/HCPCS: 36415; 80053; 85025

== ENCOUNTER → 2021-02-28 16:07 | Outpatient (CLI) | payer BC, SELFPAY ==
[2021-02-28 17:45] LABS: Absolute Lymphocyte Count 2.29 X10^3/uL (0.83-4.51); Absolute Neutrophil Count 2.9 X10^3/uL (2.0-7.7); Basophil# 0.03 X10^3/uL; Basophil% 0.5 % (0-1); Eosinophil# 0.11 X10^3/uL; Eosinophils% 1.9 % (0-5); Hematocrit 39.2 % (37-47); Hemoglobin 12.8 g/dL (12.0-15.0); Lymphocyte # 2.29 X10^3/ul (0.83-4.51); Lymphocyte % 39.3 % (19-41); Mean Corp Hgb Conc 32.7 g/dL (32-36); Mean Corpuscular Hgb 30.7 pg (27.0-32.0); Mean Platelet Vol. 10.7 fl (6.2-12.0); Monocyte# 0.46 X10^3/uL; Monocyte% 7.9 % (0-10); NRBC Flagged by Analyzer 0 % (0-5); Neutrophil # 2.92 X10^3/uL (2.7-7.7); Neutrophil % 50.1 % (47-70); Platelet Count 329 K/mm3 (150-450); RBC Distribution Width CV 11.7 % (11.6-14.6); RBC Distribution Width SD 40.3 fl (35.1-43.9); Red Blood Count 4.17 M/mm3 (4.2-5.4); White Blood Count 5.8 K/mm3 (4.4-11.0)
[2021-02-28 18:06] LABS: ALB/GLOB Ratio 1.1 RATIO (0.9-2.4); AST(SGOT) 19 U/L (15-37); Alanine Aminotransfer ALT/SGPT 29 U/L (13-56); Albumin, Serum 3.9 g/dL (3.2-5.0); Alkaline Phosphatase 51 U/L (45-117); Anion Gap 6 (5-15); BUN 17 mg/dL (7-18); BUN/Creat Ratio 19.3 RATIO (10-20); Calcium,Total 8.9 mg/dL (8.5-10.1); Chloride 105 mmol/L (98-107); Creatinine, Serum 0.88 mg/dL (0.55-1.02); EST Glomerular Filtration Rate 72 mL/min (>60); Est Glom Filt Rate - Afr Amer 87 mL/min (>60); Globulin 3.4 g/dL (2.2-4.2); Glucose 86 mg/dL (74-106); Potassium 3.8 mmol/L (3.5-5.1); Protein, Total 7.3 g/dL (6.4-8.2); Sodium Level 138 mmol/L (136-145)
== END ==
PROVIDERS: PCP Family Medicine; Referring Provider Internal Medicine Rheumatology; Visit Provider Internal Medicine Rheumatology
DX: M06.09 Rheumatoid arthritis without rheumatoid factor, multiple sites (principal); M79.7 Fibromyalgia; M19.041 Primary osteoarthritis, right hand; K21.9 Gastro-esophageal reflux disease without esophagitis; E03.9 Hypothyroidism, unspecified; G47.33 Obstructive sleep apnea (adult) (pediatric); Z79.899 Other long term (current) drug therapy
CPT/HCPCS: 36415; 80053; 85025

== ENCOUNTER 2021-03-12 13:58 | Emergency (ER) | payer BC, SELFPAY ==
[2021-03-12 13:58] VITALS: BP 126/89; PULSE 78; RESP 16; TEMP 36.3; O2SAT 97; BMI 30.3
--- NOTE | 2021-03-12 14:09 | ED.VIS.LOWEX ---
HPI History of Present Illness Chief Complaint: Laceration Narrative Narrative: 51-year-old female with laceration to the left distal tibia which occurred today prior to arrival. Patient states the bleeding is controlled. Her tetanus is up-to-date. She denies significant pain. She states she caught her tibia on a tent stake and this is how she lacerated it. She does not have any bony tenderness. She is ambulatory. Tetanus Immunization: <5 years PFSH [facility] Medical History Arthritis Arthritis, rheumatoid Fibromyalgia Hypothyroidism Home Medications levothyroxine 125 mcg PO DAILY 06/25/13 [History Last Taken 12/04/17 08:00] abatacept 125 mg SQ FR 11/27/17 [History Last Taken Unknown] folic acid 2 mg PO DAILY@0800 11/27/17 [History Last Taken Unknown] omeprazole 20 mg PO PRN PRN 11/27/17 [History Last Taken Unknown] ibuprofen 600 mg PO Q6H PRN PRN #30 tab 12/04/17 [Rx Last Taken Unknown] acetaminophen 325 mg capsule 325 mg PO Q6H 04/08/19 [History Last Taken Unknown] cholecalciferol (vitamin D3) 50 mcg (2,000 unit) capsule 2,000 unit PO DAILY 04/08/19 [History Last Taken Unknown] methotrexate sodium 12.5 mg PO FR 07/04/19 [History Last Taken Unknown] pregabalin 75 mg PO DAILY 03/12/21 [History Last Taken Unknown] Allergy/AdvReac Type Severity Reaction Status Date / Time ceftriaxone sodium Allergy Rash Verified 03/12/21 14:00 [From Rocephin] oxycodone AdvReac Nausea/Vom/ Verified 03/12/21 14:00 Diarrhea Surgical History History of carpal tunnel release History of foot operation History of neck surgery History of shoulder surgery History of tonsillectomy Social History Smoking Status: Never smoker alcohol intake: current alcohol intake frequency: holidays/special occasions only ROS ROS ED Constitutional Constitutional ED: Denies chills or fever(s) Eyes Eyes: Denies blurry vision or change in vision ENT ENT ED: Denies rhinorrhea or sore throat Cardiovascular Cardiovascular: Denies chest pain or palpitations Respiratory/Chest Respiratory/Chest: Denies cough or dyspnea Gastrointestinal Gastrointestinal: Denies abdominal pain, nausea or vomiting Genitourinary Genitourinary ED: Denies dysuria or hematuria Musculoskeletal Musculoskeletal: Denies arthralgias, back pain, myalgias or neck pain Integumentary Reports other Details: Laceration of the left tibia Neurologic Neurologic: Denies paresthesias or weakness EXAM Physical Exam Const Vital Signs: 03/12/21 13:58 Temperature 97.3 F L Temperature Source Temporal Pulse Rate 78 Respiratory Rate 16 Blood Pressure 126/89 H Blood Pressure Mean 101 Pulse Ox 97 Oxygen Delivery Method Room Air Positive well nourished General Appearance ED: NAD HEENT Reports moist mucous membranes normocephalic and atraumatic Resp normal respiratory effort and no retractions Extremity full ROM General Extremety ED: Negative for cyanosis or edema General Extremity: Negative for cyanosis or edema Neuro oriented x3 Sensorium / Orientation: alert Psych mental status grossly normal Skin Skin Narrative: 5 cm laceration to the left distal tibia. No active bleeding. No bony tenderness. No crepitance. MDM MDM MDM Narrative Medical decision making narrative: Patient presenting with 5 cm laceration to the left distal tibia. Patient's tetanus immunization is up-to-date. Patient's wound was cleaned and sutured. Please see procedure note. Patient tolerated procedure well. She is given wound care instructions as well as when to follow-up for suture removal in 14 days. Patient stable discharge this time. Impression: 1. Left tibial laceration 5 cm Procedures Lacerations Left Tibial Laceration: Length: 1.97 in Depth: Skin Shape: Linear Prep: Sterile Conditions and Chlorhexadine Laceration repair: Irrigated and Lidocaine with epi Irrigated (ml): 250 Number of Sutures/[place]: 6 Suture Information: Ethilon Comment: 3-0 Discharge Plan Triage Chief Complaint: Laceration ED Provider: Osei Lugo Dx/Rx/DC Orders Instructions: ED Laceration: All Closures Prescriptions: No Action acetaminophen 325 mg capsule 325 mg PO Q6H RF: 0 cholecalciferol (vitamin D3) 2,000 unit capsule 2,000 unit PO DAILY RF: 0 levothyroxine 112 MCG tablet 125 mcg PO DAILY RF: 0 omeprazole 20 MG capsule,delayed release(DR/EC) 20 mg PO PRN PRN (Reason: Indigestion) RF: 0 folic acid 1 MG tablet 2 mg PO DAILY@0800 RF: 0 abatacept 125 MG/ML syringe 125 mg SQ FR RF: 0 ibuprofen 600 MG tablet 600 mg PO Q6H PRN PRN (Reason: Mild-Mod Pain (-12/12)) Qty: 30 RF: 0 methotrexate sodium 2.5 MG tablet 12.5 mg PO FR RF: 0 pregabalin 75 mg capsule 75 mg PO DAILY RF: 0 Primary Care Provider: Dinora Serra Referrals: Dinora Serra DO [Primary Care Provider] - Disposition Disposition: Home, Self Care
[2021-03-12] MEDS: Lidocaine 1% /Epi 1:100 (20ml) 20 ML Vial INFILT (14:42)
== END 2021-03-12 15:41 | disposition home or self-care (01) ==
PROVIDERS: Emergency Provider Student in an Organized Health Care Education/Training Program; PCP Family Medicine
DX: S81.812A Laceration without foreign body, left lower leg, initial encounter (principal); W22.8XXA Striking against or struck by other objects, initial encounter; Y93.9 Activity, unspecified; Y92.9 Unspecified place or not applicable; Y99.9 Unspecified external cause status; E03.9 Hypothyroidism, unspecified; M06.9 Rheumatoid arthritis, unspecified; M79.7 Fibromyalgia; Z79.890 Hormone replacement therapy; Z79.899 Other long term (current) drug therapy
CPT/HCPCS: 12002; 99283

== ENCOUNTER 2021-03-13 17:03 | Emergency (ER) | payer BC, SELFPAY ==
[2021-03-12 13:58] VITALS: BMI 30.3
[2021-03-13 17:05] VITALS: BP 128/84; PULSE 87; RESP 14; TEMP 36.6; O2SAT 98; BMI 29.7
--- NOTE | 2021-03-13 18:51 | EX.ED.GENINJ ---
HPI History of Present Illness Chief Complaint: Laceration Informant: patient Narrative Narrative: Patient is evaluated for wound check. Patient had sutures placed in her left lower extremity yesterday. She was shaving her legs today and she accidentally cut 3 of the sutures out. She came in for wound check and to see if she needs sutures placed again. She denies any other complaints. [facility] Medical History Arthritis Arthritis, rheumatoid Fibromyalgia Hypothyroidism Home Medications levothyroxine 125 mcg PO DAILY 06/25/13 [History Last Taken 12/04/17 08:00] abatacept 125 mg SQ FR 11/27/17 [History Last Taken Unknown] folic acid 2 mg PO DAILY@0800 11/27/17 [History Last Taken Unknown] omeprazole 20 mg PO PRN PRN 11/27/17 [History Last Taken Unknown] ibuprofen 600 mg PO Q6H PRN PRN #30 tab 12/04/17 [Rx Last Taken Unknown] acetaminophen 325 mg capsule 325 mg PO Q6H 04/08/19 [History Last Taken Unknown] cholecalciferol (vitamin D3) 50 mcg (2,000 unit) capsule 2,000 unit PO DAILY 04/08/19 [History Last Taken Unknown] methotrexate sodium 12.5 mg PO FR 07/04/19 [History Last Taken Unknown] pregabalin 75 mg PO DAILY 03/12/21 [History Last Taken Unknown] Allergy/AdvReac Type Severity Reaction Status Date / Time ceftriaxone sodium Allergy Rash Verified 03/13/21 17:04 [From Rocephin] oxycodone AdvReac Nausea/Vom/ Verified 03/13/21 17:04 Diarrhea Surgical History History of carpal tunnel release History of foot operation History of neck surgery History of shoulder surgery History of tonsillectomy Social History Smoking Status: Never smoker alcohol intake: current alcohol intake frequency: holidays/special occasions only ROS ROS ED Constitutional Constitutional ED: Denies chills or fever(s) Eyes Eyes: Denies change in vision Cardiovascular Cardiovascular: Denies chest pain Respiratory/Chest Respiratory/Chest: Denies dyspnea Gastrointestinal Gastrointestinal: Denies abdominal pain or vomiting Musculoskeletal Musculoskeletal: Denies arthralgias or myalgias Integumentary Reports other Details: laceration to left leg with sutures ; Denies rash Neurologic Neurologic: Denies headache(s) or weakness EXAM Physical Exam Const Vital Signs: 03/13/21 17:05 Temperature 98 F Temperature Source Temporal Pulse Rate 87 Respiratory Rate 14 Blood Pressure 128/84 H Blood Pressure Mean 98 Pulse Ox 98 Oxygen Delivery Method Room Air Positive well nourished and well developed General Appearance ED: well developed HEENT atraumatic Eyes PERRL and EOMs intact bilaterally Chest Wall inspection of chest normal Resp normal respiratory effort and clear to auscultation bilaterally Cardio regular rhythm and no murmurs Rate: regular rate Extremity normal to inspection General Extremety ED: Negative for deformity or tenderness General Extremity: Negative for deformity Neuro oriented x3 and no focal motor deficits Sensorium / Orientation: alert Psych mental status grossly normal Skin Skin Narrative: Laceration, linear with good wound approximation of the left anterior grissom. The proximal half still sutures in place however the sutures are missing in the bottom half. Wound appears more superficial on the distal half. Small amount of oozing noted at the middle aspect. MDM MDM MDM Narrative Medical decision making narrative: Patient evaluated for wound check. She actually removed half of the sutures from shaving today. This seems to be the area with lower tension and I do not think the risk of resuturing and possibly introducing infection warrants the benefits. Dermabond applied over the distal aspect of the wound. Patient counseled to follow-up with her PCP for suture check/removal in 10 to 14 days as previously instructed. Counseled return precautions. Counseled signs of infection. Discharge Plan Triage Chief Complaint: Laceration Other Complaint: Suture Remv ED Provider: Annelise Farooq Dx/Rx/DC Orders Clinical Impression: Encounter for re-check of laceration wound Instructions: ED Laceration, Extremity: Skin Glue Prescriptions: No Action acetaminophen 325 mg capsule 325 mg PO Q6H RF: 0 cholecalciferol (vitamin D3) 2,000 unit capsule 2,000 unit PO DAILY RF: 0 levothyroxine 112 MCG tablet 125 mcg PO DAILY RF: 0 omeprazole 20 MG capsule,delayed release(DR/EC) 20 mg PO PRN PRN (Reason: Indigestion) RF: 0 folic acid 1 MG tablet 2 mg PO DAILY@0800 RF: 0 abatacept 125 MG/ML syringe 125 mg SQ FR RF: 0 ibuprofen 600 MG tablet 600 mg PO Q6H PRN PRN (Reason: Mild-Mod Pain (-12/12)) Qty: 30 RF: 0 methotrexate sodium 2.5 MG tablet 12.5 mg PO FR RF: 0 pregabalin 75 mg capsule 75 mg PO DAILY RF: 0 Primary Care Provider: Dinora Serra Referrals: Dinora Serra DO [Primary Care Provider] - Disposition Disposition: Home, Self Care Discharge Date/Time: 03/13/21 19:06
== END 2021-03-13 19:06 | disposition home or self-care (01) ==
PROVIDERS: Emergency Provider Emergency Medicine; PCP Family Medicine
DX: S81.812A Laceration without foreign body, left lower leg, initial encounter (principal); W45.8XXA Other foreign body or object entering through skin, initial encounter; Y93.E8 Activity, other personal hygiene; Y92.9 Unspecified place or not applicable; Y99.9 Unspecified external cause status; M06.9 Rheumatoid arthritis, unspecified; M79.7 Fibromyalgia; E03.9 Hypothyroidism, unspecified; Z79.890 Hormone replacement therapy; Z79.899 Other long term (current) drug therapy
CPT/HCPCS: 12001; 99282

== ENCOUNTER → 2021-05-29 16:27 | Outpatient (CLI) | payer BC, SELFPAY ==
[2021-05-29 17:49] LABS: Absolute Lymphocyte Count 2.22 X10^3/uL (0.83-4.51); Absolute Neutrophil Count 2.8 X10^3/uL (2.0-7.7); Basophil# 0.05 X10^3/uL; Basophil% 0.8 % (0-1); Eosinophil# 0.42 X10^3/uL; Eosinophils% 7.1 % (0-5); Hematocrit 37.5 % (37-47); Hemoglobin 12.4 g/dL (12.0-15.0); Lymphocyte # 2.22 X10^3/ul (0.83-4.51); Lymphocyte % 37.6 % (19-41); Mean Corp Hgb Conc 33.1 g/dL (32-36); Mean Corpuscular Hgb 30.9 pg (27.0-32.0); Mean Corpuscular Volume 93.5 fL (81-99); Mean Platelet Vol. 10.8 fl (6.2-12.0); Monocyte# 0.43 X10^3/uL; Monocyte% 7.3 % (0-10); NRBC Flagged by Analyzer 0 % (0-5); Neutrophil # 2.76 X10^3/uL (2.7-7.7); Neutrophil % 46.9 % (47-70); Platelet Count 310 K/mm3 (150-450); RBC Distribution Width CV 12.3 % (11.6-14.6); RBC Distribution Width SD 42.1 fl (35.1-43.9); Red Blood Count 4.01 M/mm3 (4.2-5.4); White Blood Count 5.9 K/mm3 (4.4-11.0)
[2021-05-29 18:16] LABS: ALB/GLOB Ratio 1.1 RATIO (0.9-2.4); AST(SGOT) 13 U/L (15-37); Alanine Aminotransfer ALT/SGPT 23 U/L (13-56); Albumin, Serum 3.7 g/dL (3.2-5.0); Alkaline Phosphatase 50 U/L (45-117); Anion Gap 5 (5-15); BUN 18 mg/dL (7-18); BUN/Creat Ratio 25.1 RATIO (10-20); Calcium,Total 8.9 mg/dL (8.5-10.1); Chloride 106 mmol/L (98-107); Creatinine, Serum 0.72 mg/dL (0.55-1.02); EST Glomerular Filtration Rate 91 mL/min (>60); Est Glom Filt Rate - Afr Amer 110 mL/min (>60); Globulin 3.4 g/dL (2.2-4.2); Glucose 87 mg/dL (74-106); Potassium 4.1 mmol/L (3.5-5.1); Protein, Total 7.1 g/dL (6.4-8.2); Sodium Level 138 mmol/L (136-145)
== END ==
PROVIDERS: PCP Family Medicine; Referring Provider Internal Medicine Rheumatology; Visit Provider Internal Medicine Rheumatology
DX: M06.072 Rheumatoid arthritis without rheumatoid factor, left ankle and foot (principal); M79.7 Fibromyalgia; M19.041 Primary osteoarthritis, right hand; K21.9 Gastro-esophageal reflux disease without esophagitis; E03.9 Hypothyroidism, unspecified; G47.33 Obstructive sleep apnea (adult) (pediatric); Z79.899 Other long term (current) drug therapy
CPT/HCPCS: 36415; 80053; 85025

== ENCOUNTER → 2021-07-11 16:32 | Outpatient (CLI) | payer BC, SELFPAY ==
[2021-07-11 17:58] LABS: Absolute Lymphocyte Count 2.57 X10^3/uL (0.83-4.51); Absolute Neutrophil Count 4.8 X10^3/uL (2.0-7.7); Basophil# 0.08 X10^3/uL; Basophil% 0.9 % (0-1); Eosinophil# 0.32 X10^3/uL; Eosinophils% 3.8 % (0-5); Hemoglobin 13.3 g/dL (12.0-15.0); Lymphocyte # 2.57 X10^3/ul (0.83-4.51); Lymphocyte % 30.5 % (19-41); Mean Corp Hgb Conc 34.1 g/dL (32-36); Mean Corpuscular Hgb 31.2 pg (27.0-32.0); Mean Corpuscular Volume 91.5 fL (81-99); Mean Platelet Vol. 10.9 fl (6.2-12.0); Monocyte# 0.66 X10^3/uL; Monocyte% 7.8 % (0-10); NRBC Flagged by Analyzer 0 % (0-5); Neutrophil # 4.75 X10^3/uL (2.7-7.7); Neutrophil % 56.3 % (47-70); Platelet Count 309 K/mm3 (150-450); RBC Distribution Width CV 12.9 % (11.6-14.6); RBC Distribution Width SD 43.3 fl (35.1-43.9); Red Blood Count 4.26 M/mm3 (4.2-5.4); White Blood Count 8.4 K/mm3 (4.4-11.0)
[2021-07-11 18:43] LABS: ALB/GLOB Ratio 1.2 RATIO (0.9-2.4); AST(SGOT) 17 U/L (15-37); Alanine Aminotransfer ALT/SGPT 27 U/L (13-56); Alkaline Phosphatase 52 U/L (45-117); Anion Gap 6 (5-15); BUN 21 mg/dL (7-18); BUN/Creat Ratio 26.4 RATIO (10-20); Calcium,Total 9.3 mg/dL (8.5-10.1); Chloride 105 mmol/L (98-107); EST Glomerular Filtration Rate 81 mL/min (>60); Est Glom Filt Rate - Afr Amer 98 mL/min (>60); Globulin 3.4 g/dL (2.2-4.2); Glucose 91 mg/dL (74-106); Potassium 4.2 mmol/L (3.5-5.1); Protein, Total 7.4 g/dL (6.4-8.2); Sodium Level 139 mmol/L (136-145)
== END ==
PROVIDERS: PCP Family Medicine; Referring Provider Internal Medicine Rheumatology; Visit Provider Internal Medicine Rheumatology
DX: M06.072 Rheumatoid arthritis without rheumatoid factor, left ankle and foot (principal); M19.041 Primary osteoarthritis, right hand; M79.7 Fibromyalgia; E03.9 Hypothyroidism, unspecified; G47.33 Obstructive sleep apnea (adult) (pediatric); K21.9 Gastro-esophageal reflux disease without esophagitis; Z79.899 Other long term (current) drug therapy
CPT/HCPCS: 36415; 80053; 85025

== ENCOUNTER 2021-09-20 12:30 | Outpatient (CLI) | payer BC, SELFPAY ==
[2021-09-20 15:04] LABS: Absolute Lymphocyte Count 1.71 X10^3/uL (0.83-4.51); Absolute Neutrophil Count 2.3 X10^3/uL (2.0-7.7); Basophil# 0.05 X10^3/uL; Eosinophil# 0.39 X10^3/uL; Hematocrit 39.2 % (37-47); Hemoglobin 13.1 g/dL (12.0-15.0); Lymphocyte # 1.71 X10^3/ul (0.83-4.51); Mean Corp Hgb Conc 33.4 g/dL (32-36); Mean Corpuscular Hgb 31.6 pg (27.0-32.0); Mean Corpuscular Volume 94.7 fL (81-99); Mean Platelet Vol. 10.8 fl (6.2-12.0); Monocyte# 0.44 X10^3/uL; NRBC Flagged by Analyzer 0 % (0-5); Neutrophil # 2.28 X10^3/uL (2.7-7.7); Neutrophil % 46.6 % (47-70); Platelet Count 313 K/mm3 (150-450); RBC Distribution Width CV 12.3 % (11.6-14.6); RBC Distribution Width SD 42.6 fl (35.1-43.9); Red Blood Count 4.14 M/mm3 (4.2-5.4); White Blood Count 4.9 K/mm3 (4.4-11.0)
[2021-09-20 15:39] LABS: ALB/GLOB Ratio 1.2 RATIO (0.9-2.4); AST(SGOT) 16 U/L (15-37); Alanine Aminotransfer ALT/SGPT 34 U/L (13-56); Albumin, Serum 3.8 g/dL (3.2-5.0); Alkaline Phosphatase 53 U/L (45-117); Anion Gap 5 (5-15); BUN 19 mg/dL (7-18); BUN/Creat Ratio 28.4 RATIO (10-20); Calcium,Total 9.2 mg/dL (8.5-10.1); Chloride 105 mmol/L (98-107); Creatinine, Serum 0.67 mg/dL (0.55-1.02); EST Glomerular Filtration Rate 99 mL/min (>60); Est Glom Filt Rate - Afr Amer 119 mL/min (>60); Globulin 3.2 g/dL (2.2-4.2); Glucose 90 mg/dL (74-106); Potassium 3.6 mmol/L (3.5-5.1); Sodium Level 139 mmol/L (136-145)
[2021-09-20 18:30] LABS: CRP < 2.90 mg/L (0.0-3.0)
[2021-09-22 17:07] LABS: Endomysial Antibody IgA Negative (Negative)
[2021-09-22 18:36] LABS: Immunoglobulin A 141 mg/dL (87-352); t-Transglutaminase IgA <2 U/mL (0-3)
== END 2021-09-20 23:59 | disposition home or self-care (01) ==
PROVIDERS: Internal Medicine Gastroenterology; PCP Family Medicine; Referring Provider Internal Medicine Rheumatology; Visit Provider Internal Medicine Rheumatology
DX: M06.072 Rheumatoid arthritis without rheumatoid factor, left ankle and foot (principal); M79.7 Fibromyalgia; M19.041 Primary osteoarthritis, right hand; M19.042 Primary osteoarthritis, left hand; K21.9 Gastro-esophageal reflux disease without esophagitis; E03.9 Hypothyroidism, unspecified; G47.33 Obstructive sleep apnea (adult) (pediatric); R19.7 Diarrhea, unspecified; Z79.899 Other long term (current) drug therapy
CPT/HCPCS: 36415; 80053; 82784; 83516; 85025; 86140; 86255

== ENCOUNTER → 2021-12-26 | Outpatient (CLI) | payer BC, SELFPAY ==
[2021-12-26 15:31] LABS: Absolute Lymphocyte Count 1.93 X10^3/uL (0.83-4.51); Absolute Neutrophil Count 2.3 X10^3/uL (2.0-7.7); Basophil# 0.05 X10^3/uL; Eosinophil# 0.12 X10^3/uL; Eosinophils% 2.5 % (0-5); Hematocrit 41.5 % (37-47); Hemoglobin 13.8 g/dL (12.0-15.0); Lymphocyte # 1.93 X10^3/ul (0.83-4.51); Lymphocyte % 40.2 % (19-41); Mean Corp Hgb Conc 33.3 g/dL (32-36); Mean Corpuscular Hgb 31.1 pg (27.0-32.0); Mean Corpuscular Volume 93.5 fL (81-99); Mean Platelet Vol. 11.2 fl (6.2-12.0); Monocyte# 0.41 X10^3/uL; Monocyte% 8.5 % (0-10); NRBC Flagged by Analyzer 0 % (0-5); Neutrophil # 2.28 X10^3/uL (2.7-7.7); Neutrophil % 47.6 % (47-70); Platelet Count 343 K/mm3 (150-450); RBC Distribution Width CV 11.8 % (11.6-14.6); RBC Distribution Width SD 40.4 fl (35.1-43.9); Red Blood Count 4.44 M/mm3 (4.2-5.4); White Blood Count 4.8 K/mm3 (4.4-11.0)
[2021-12-26 15:41] LABS: Albumin, Serum 3.7 g/dL (3.2-5.0); BUN 13 mg/dL (7-18); Creatinine, Serum 0.76 mg/dL (0.55-1.02); EST Glomerular Filtration Rate 85 mL/min (>60); Est Glom Filt Rate - Afr Amer 102 mL/min (>60); Glucose 86 mg/dL (74-106); Protein, Total 7.1 g/dL (6.4-8.2)
[2021-12-26 15:42] LABS: ALB/GLOB Ratio 1.1 RATIO (0.9-2.4); AST(SGOT) 16 U/L (15-37); Alanine Aminotransfer ALT/SGPT 27 U/L (13-56); Alkaline Phosphatase 59 U/L (45-117); Anion Gap 5 (5-15); Calcium,Total 9.1 mg/dL (8.5-10.1); Chloride 107 mmol/L (98-107); Globulin 3.4 g/dL (2.2-4.2); Potassium 3.7 mmol/L (3.5-5.1); Sodium Level 141 mmol/L (136-145)
== END | disposition home or self-care (01) ==
LOC: MTLAB 11:59
PROVIDERS: PCP Family Medicine; Referring Provider Internal Medicine Rheumatology; Visit Provider Internal Medicine Rheumatology
DX: M06.072 Rheumatoid arthritis without rheumatoid factor, left ankle and foot (principal); M25.561 Pain in right knee; M79.7 Fibromyalgia; M19.041 Primary osteoarthritis, right hand; K21.9 Gastro-esophageal reflux disease without esophagitis; E03.9 Hypothyroidism, unspecified; G47.33 Obstructive sleep apnea (adult) (pediatric)
CPT/HCPCS: 36415; 80053; 85025; 96360; 96361; 99218; G0378

== ENCOUNTER → 2022-03-13 | Outpatient (CLI) | payer BC, SELFPAY ==
[2022-03-13 18:11] LABS: Absolute Lymphocyte Count 2.31 X10^3/uL (0.83-4.51); Basophil# 0.08 X10^3/uL; Basophil% 1.3 % (0-1); Eosinophil# 0.07 X10^3/uL; Eosinophils% 1.2 % (0-5); Hematocrit 36.1 % (37-47); Hemoglobin 12.7 g/dL (12.0-15.0); Lymphocyte # 2.31 X10^3/ul (0.83-4.51); Lymphocyte % 38.8 % (19-41); Mean Corp Hgb Conc 35.2 g/dL (32-36); Mean Corpuscular Hgb 31.5 pg (27.0-32.0); Mean Corpuscular Volume 89.6 fL (81-99); Monocyte# 0.45 X10^3/uL; Monocyte% 7.6 % (0-10); NRBC Flagged by Analyzer 0 % (0-5); Neutrophil # 3.04 X10^3/uL (2.7-7.7); Neutrophil % 50.9 % (47-70); Platelet Count 351 K/mm3 (150-450); RBC Distribution Width CV 12.4 % (11.6-14.6); RBC Distribution Width SD 40.4 fl (35.1-43.9); Red Blood Count 4.03 M/mm3 (4.2-5.4)
[2022-03-13 18:36] LABS: ALB/GLOB Ratio 1.2 RATIO (0.9-2.4); AST(SGOT) 16 U/L (15-37); Alanine Aminotransfer ALT/SGPT 29 U/L (13-56); Alkaline Phosphatase 51 U/L (45-117); Anion Gap 5 (5-15); BUN 20 mg/dL (7-18); BUN/Creat Ratio 21.5 RATIO (10-20); Calcium,Total 9.4 mg/dL (8.5-10.1); Chloride 107 mmol/L (98-107); Creatinine, Serum 0.93 mg/dL (0.55-1.02); EST Glomerular Filtration Rate 67 mL/min (>60); Est Glom Filt Rate - Afr Amer 81 mL/min (>60); Globulin 3.3 g/dL (2.2-4.2); Glucose 88 mg/dL (74-106); Protein, Total 7.3 g/dL (6.4-8.2); Sodium Level 140 mmol/L (136-145)
== END | disposition home or self-care (01) ==
LOC: MTLAB 16:06
PROVIDERS: PCP Family Medicine; Referring Provider Internal Medicine Rheumatology; Visit Provider Internal Medicine Rheumatology
DX: M06.072 Rheumatoid arthritis without rheumatoid factor, left ankle and foot (principal); M25.561 Pain in right knee; M79.7 Fibromyalgia; M19.041 Primary osteoarthritis, right hand; K21.9 Gastro-esophageal reflux disease without esophagitis; E03.9 Hypothyroidism, unspecified; G47.33 Obstructive sleep apnea (adult) (pediatric)
CPT/HCPCS: 36415; 80053; 85025

== ENCOUNTER → 2022-03-31 | Outpatient (CLI) | payer BC, SELFPAY ==
[2022-03-31 11:51] LABS: Cholesterol 155 mg/dL (200); High Density Lipoprotein 55 mg/dL; Triglycerides 48 mg/dL; Very Low Density Lipoprotein 10 mg/dL (5-40)
== END | disposition home or self-care (01) ==
PROVIDERS: PCP Family Medicine; Referring Provider Internal Medicine Rheumatology; Visit Provider Internal Medicine Rheumatology
DX: M06.072 Rheumatoid arthritis without rheumatoid factor, left ankle and foot (principal); M79.7 Fibromyalgia; M19.041 Primary osteoarthritis, right hand; M72.2 Plantar fascial fibromatosis; E03.9 Hypothyroidism, unspecified; G47.33 Obstructive sleep apnea (adult) (pediatric); K21.9 Gastro-esophageal reflux disease without esophagitis; Z79.899 Other long term (current) drug therapy
CPT/HCPCS: 36415; 80061; 86480

== ENCOUNTER → 2022-04-23 | Outpatient (CLI) | payer BC, SELFPAY ==
--- NOTE | 2022-04-23 16:26 | RAD_ITS ---
EXAM: XR LUMBOSACRAL SPINE, 4 OR 5 VIEWS CLINICAL INDICATION: PAIN TECHNIQUE: Frontal, lateral and bilateral oblique views of the lumbar spine. This report was created using [employer] report generation technology. COMPARISON: 01/22/2016 FINDINGS: VERTEBRAE: Unremarkable. Preserved vertebral body height. No fracture. No spondylolisthesis. Preservation of the normal lumbar lordosis. No significant facet arthropathy. DISC SPACES: Degenerative changes of the intervertebral discs. GASTROINTESTINAL TRACT: Unremarkable as visualized. Included bowel gas pattern is non-obstructive. RAD/L/S Spine Min 4 Views IMPRESSION: 1. No acute injuries identified involving the cervical spine. 2. Degenerative changes. Electronically Signed: Tom Humphrey MD at 5:45 EDT ,
== END | disposition home or self-care (01) ==
PROVIDERS: PCP Family Medicine; Referring Provider Nurse Practitioner Family; Visit Provider Nurse Practitioner Family
DX: M47.817 Spondylosis without myelopathy or radiculopathy, lumbosacral region (principal); M46.96 Unspecified inflammatory spondylopathy, lumbar region; M79.18 Myalgia, other site; M54.17 Radiculopathy, lumbosacral region; M51.37 Other intervertebral disc degeneration, lumbosacral region
CPT/HCPCS: 72110

== ENCOUNTER → 2022-05-30 | Outpatient (CLI) | payer BC, SELFPAY ==
[2022-05-30 17:54] LABS: Absolute Lymphocyte Count 2.01 X10^3/uL (0.83-4.51); Basophil# 0.04 X10^3/uL; Basophil% 0.6 % (0-1); Eosinophil# 0.07 X10^3/uL; Eosinophils% 1.1 % (0-5); Hematocrit 38.2 % (37-47); Hemoglobin 13.1 g/dL (12.0-15.0); Lymphocyte # 2.01 X10^3/ul (0.83-4.51); Lymphocyte % 30.3 % (19-41); Mean Corp Hgb Conc 34.3 g/dL (32-36); Mean Corpuscular Hgb 31.6 pg (27.0-32.0); Mean Corpuscular Volume 92.3 fL (81-99); Mean Platelet Vol. 10.5 fl (6.2-12.0); Monocyte# 0.46 X10^3/uL; Monocyte% 6.9 % (0-10); NRBC Flagged by Analyzer 0 % (0-5); Neutrophil # 4.01 X10^3/uL (2.7-7.7); Neutrophil % 60.5 % (47-70); Platelet Count 345 K/mm3 (150-450); RBC Distribution Width CV 12.4 % (11.6-14.6); RBC Distribution Width SD 42.1 fl (35.1-43.9); Red Blood Count 4.14 M/mm3 (4.2-5.4); White Blood Count 6.6 K/mm3 (4.4-11.0)
[2022-05-30 18:45] LABS: ALB/GLOB Ratio 1.2 RATIO (0.9-2.4); AST(SGOT) 17 U/L (15-37); Alanine Aminotransfer ALT/SGPT 26 U/L (13-56); Albumin, Serum 3.8 g/dL (3.2-5.0); Alkaline Phosphatase 50 U/L (45-117); Anion Gap 7 (5-15); BUN 17 mg/dL (7-18); BUN/Creat Ratio 23.1 RATIO (10-20); Calcium,Total 9.3 mg/dL (8.5-10.1); Chloride 103 mmol/L (98-107); Creatinine, Serum 0.74 mg/dL (0.55-1.02); EST Glomerular Filtration Rate 88 mL/min (>60); Est Glom Filt Rate - Afr Amer 106 mL/min (>60); Globulin 3.1 g/dL (2.2-4.2); Glucose 75 mg/dL (74-106); Potassium 3.9 mmol/L (3.5-5.1); Protein, Total 6.9 g/dL (6.4-8.2); Sodium Level 137 mmol/L (136-145)
== END | disposition home or self-care (01) ==
LOC: MTLAB 16:10
PROVIDERS: PCP Family Medicine; Referring Provider Internal Medicine Rheumatology; Visit Provider Internal Medicine Rheumatology
DX: M06.072 Rheumatoid arthritis without rheumatoid factor, left ankle and foot (principal); M79.7 Fibromyalgia; M19.041 Primary osteoarthritis, right hand; M72.2 Plantar fascial fibromatosis; E03.9 Hypothyroidism, unspecified; K21.9 Gastro-esophageal reflux disease without esophagitis; G47.33 Obstructive sleep apnea (adult) (pediatric); Z79.899 Other long term (current) drug therapy
CPT/HCPCS: 36415; 80053; 85025

== ENCOUNTER 2022-06-20 10:30 | Outpatient (RCR) | payer BC, SELFPAY ==
--- NOTE | 2022-05-09 16:51 | HP.PTEVAL_ITS ---
Patient's Visit Information JOSE ALFREDO BURGOS is a 52 year old F referred to Physical Therapy by ZINA Benitez with a diagnosis of Lumbar spondylosis. Date of Evaluation: 05/09/22 Physical Therapist: Hang Hernandez DPT, OCS, CSCS - Visit Plan Frequency: 2x /Week Duration: 4-6 Weeks Plan: start water therapy 2x/week for 4 weeks and progress to I or land as needed. quad and HS stretching, psoas stretching, L/S ext ROM, core adn LE/postural strength. EG to recheck in 4 weeks and consider progression to I pool or land exercises. - Subjective R LBP always has issues. Years of pain insidious onset. Has had nerves burned. Has numbness R post leg and sciatic sometimes. Daily pain and 7/10 constant. Worse with lifting at work [employer] bending and lifting. Sleep is not great due to pain. Has RA also. Has FM and OA also. No symptoms below knee. Basic ADLs at home are OK, they just hurt. Doesn't feel like doing anything after work. Has not seen spine doctor. No hobbies. No regular ex and has not tried. Trying fis stretch and rotation but don't help - Objective Walks into PT I talking on phone. Trasnfers I bed and chair. Flat lordosis in posture. PA pressure painful centrally in lumbar area. Soft tissue not tender. LB AROM ext max limited and central pain, flexion painful central and stiff, SB are OK. quads, psoas, HS all max tight in upper legs. reflexes 2/3 patella and achilles. Sensation LE WNL to gross light touch. Strength LE 4/5 without myotomal problems. repeated PPU and DKC no change, both feel good. - Balance/Special Test Scores Oswestry Low Back Score: 35 - Goals Goal 1:: L/S AROM ext with only min limitations and painfree Goal Time Frame: 2-4 Weeks Goal 2:: I management of condtion and appropriate activity modificaiton and exercises. Goal Time Frame: 4-6 Weeks Goal 3:: Pt feel 60% better in pain level and 2/10 at worst Goal Time Frame: 4-6 Weeks Goal 4:: oswestry score 10 or better, Goal Time Frame: 4-6 Weeks - Rehabilitation Potential Physical Therapy Diagnosis: Degenerative changes in lumbar spine causing pain and immobility issues. Rehabilitation Potential: Fair - Anticipated Interventions Patient/Client Instruction: Educate patient on: Condition, Plan of Care For the Purpose of:: To decrease pain, To increase ROM, To improve nutrient delivery to tissue, To increase tolerance to activity/condition/position Therapeutic Exercise to Include: Strength training, Postural training, Flexibilty training, In an aquatic setting, Active ROM, Dynamic Lumbar Stabilization, Ariel Exercises For the Purpose of:: To decrease pain, To decrease swelling/inflammation, To increase ROM, To improve muscle performance and motor function, To improve ability of physical actions for home/community/work/leisure Thank you for the opportunity to evaluate your patient. For Medicare and Medicare HMO plans, please review the plan of care and approve it. It will need to be FAXED BACK to us at [phone] for Medicare purposes. For Medicare only, by signing this I certify the plan of care. Please let me know if there are questions or concerns regarding this plan of care. Physician Signature: Date:
--- NOTE | 2022-08-16 17:57 | HP.PT.NRP ---
JOSE ALFREDOYULIYA BURGOS was seen in my office for initial evaluation on 05/09/22. The following Plan of Care was established for this patient: Initial Frequency: 2x /Week Initial Duration: 4-6 Weeks Patient/Client Instruction: Educate patient on: Condition, Plan of Care For the Purpose of:: To decrease pain, To increase ROM, To improve nutrient delivery to tissue, To increase tolerance to activity/condition/position Therapeutic Exercise to Include: Strength training, Postural training, Flexibilty training, In an aquatic setting, Active ROM, Dynamic Lumbar Stabilization, Ariel Exercises For the Purpose of:: To decrease pain, To decrease swelling/inflammation, To increase ROM, To improve muscle performance and motor function, To improve ability of physical actions for home/community/work/leisure This patient was last seen in our office 06/20/22. Pertinent comments regarding their Physical therapy will appear below: Pt seen 7 visits of aquatic therapy POC but did not attend recheck. at this point, it has been nearly two months and I will discontinue due to nonattendance. At this point I will be discontinuing this patient from physical therapy. I would be happy to see this patient again in the future if found appropriate by the physician. Thank you! Hang Hernandez, DPT, OCS, CSCS Balance/Gait/Functional tests - Balance/Special Test Scores Oswestry Low Back Score: 35
== END 2022-06-20 19:00 | disposition home or self-care (01) ==
LOC: PT 10:30
PROVIDERS: PCP Family Medicine; Referring Provider Nurse Practitioner Family; Visit Provider Nurse Practitioner Family
DX: M47.817 Spondylosis without myelopathy or radiculopathy, lumbosacral region (principal); M51.37 Other intervertebral disc degeneration, lumbosacral region; M54.17 Radiculopathy, lumbosacral region; M46.96 Unspecified inflammatory spondylopathy, lumbar region
CPT/HCPCS: 97110; 97113; 97162

== ENCOUNTER 2022-06-22 04:04 | Emergency (ER) | payer BC, SELFPAY ==
[2022-06-22 04:05] VITALS: BP 154/79; PULSE 100; RESP 18; TEMP 37.1; O2SAT 100; BMI 30.4
--- NOTE | 2022-06-22 04:20 | EDS_ITS ---
HPI History of Present Illness Chief Complaint: General Illness Detail of Chief Complaint: Cough with fever and chills. Informant: patient Onset/Context/Timing Onset: Yesterday Context: Gradual Onset Timing: Continuous Current Severity: Mild Maximum Severity: Mild Narrative Narrative: 62-year-old female history of rheumatoid arthritis. Yesterday evening she started having cough with fever and chills. 1 episode of nausea and vomiting. No diarrhea. No dysuria. No known exposure. Denies any abdominal pain. No chest pain. No shortness of breath. She does have diffuse body aches. Prior similar symptoms: Yes Recent Illness/Hospitalization: No PFSH PFSH Medical History Arthritis Arthritis, rheumatoid Fibromyalgia Hypothyroidism Home Medications levothyroxine 112 mcg tablet 125 mcg PO DAILY 06/25/13 [History Last Taken 12/04/17 08:00] abatacept 125 mg/mL subcutaneous syringe 125 mg SQ FR 11/27/17 [History Last Taken Unknown] folic acid 1 mg tablet 2 mg PO DAILY@0800 11/27/17 [History Last Taken Unknown] omeprazole 20 mg capsule,delayed release 20 mg PO PRN PRN Indigestion 11/27/17 [History Last Taken Unknown] ibuprofen 600 mg tablet 600 mg PO Q6H PRN PRN Mild-Mod Pain (1-5/10) #30 tabs 12/04/17 [Rx Last Taken Unknown] methotrexate sodium 2.5 mg tablet 12.5 mg PO FR 07/04/19 [History Last Taken Unknown] pregabalin 75 mg capsule 75 mg PO DAILY 03/12/21 [History Last Taken Unknown] Allergy/AdvReac Type Severity Reaction Status Date / Time ceftriaxone sodium Allergy Rash Verified 06/22/22 04:08 [From Rocephin] oxycodone AdvReac Nausea/Vom/ Verified 06/22/22 04:08 Diarrhea Surgical History History of carpal tunnel release History of foot operation History of neck surgery History of shoulder surgery History of tonsillectomy Social History Smoking Status: Never smoker alcohol intake: current alcohol intake frequency: holidays/special occasions only ROS ROS ED ROS Narrative Cough, fever, chills, headache and body aches. Review of Systems ROS Unobtainable: Denies due to encephalopathy Constitutional Constitutional ED: Reports chills, fever(s) and subjective Eyes Eyes: Denies blurry vision or change in vision ENT ENT ED: Denies ear pain, rhinorrhea or sore throat Cardiovascular Cardiovascular: Denies chest pain Respiratory/Chest Respiratory/Chest: Reports cough; Denies dyspnea or dyspnea on exertion Gastrointestinal Gastrointestinal: Reports nausea and vomiting; Denies abdominal pain, constipation, diarrhea or melena Genitourinary Genitourinary ED: Denies dysuria or hematuria Musculoskeletal Musculoskeletal: Reports arthralgias and myalgias Integumentary Denies abscess Neurologic Neurologic: Reports headache(s) Psychiatric Psychiatric: Denies anxiety Endocrine Endocrinology: Denies cold intolerance Hematologic/Lymphatic Hematologic/Lymphatic: Reports none Allergic/Immunologic Allergic/Immunologic ED: Denies mouth swelling or tongue swelling EXAM Physical Exam Narrative Exam Narrative: 52-year-old female no acute distress. Vital signs stable afebrile. Pulse ox under percent on room air no hypoxia. H EENT exam unremarkable. Moist Riis membranes. Neck nontender no lymphadenopathy. No meningismus. Lungs clear to auscultation bilaterally. Heart regular rhythm rate about 100 no murmur. Abdomen soft nontender normal bowel sounds no peritoneal signs. Back nontender. Moving all 4 extremities. Skin unremarkable. Calves are nontender without edema. Neurologically she is awake and alert with no focal motor deficits Const Vital Signs: 06/22/22 04:05 Temperature 98.7 F Temperature Source Temporal Pulse Rate 100 Respiratory Rate 18 Blood Pressure 154/79 H Blood Pressure Mean 104 Pulse Ox 100 Oxygen Delivery Method Room Air Positive well nourished and well developed; Negative for cachectic, contractures or unkempt General Appearance ED: well developed and NAD; Negative for unkempt, cachectic, contractures, cyanotic or diaphoretic Nutritional Appearance: Negative for cachectic HEENT Reports moist mucous membranes; Denies dry mucous membranes Negative for trauma or tenderness Mouth ED: No dry mucous membranes Mouth: No dry mucous membranes Eyes PERRL and EOMs intact bilaterally General Eye ED: Negative for pale conjunctiva or scleral icterus Neck no lymphadenopathy, supple and no JVD General: Negative for tenderness Lymph Lymphatic: Negative for other Chest Wall inspection of chest normal and palpation of chest normal Resp normal respiratory effort and clear to auscultation bilaterally Effort and Inspection: Negative for retractions Auscultation: Negative for rales, rhonchi or wheezes Cardio regular rate, regular rhythm, S1 normal heart sound, S2 normal heart sound and no murmurs Palpation: Negative for palpable S3 Rate: Negative for bradycardia Rhythm: Negative for abnormal rhythm GI normal to inspection, nondistended, normoactive bowel sounds, non-tender, non- distended and no masses Auscultation: normoactive bowel sounds Palpation: soft; Negative for tender or guarding Back/Spine no CVA tenderness General Back: Negative for CVA tenderness Cervical Spine: Negative for cervical spine tenderness Thoracic Spine / Upper Back: Negative for thoracic spinal tenderness Lumbar Spine / Lower Back: Negative for lumbar spinal tenderness Extremity normal to inspection General Extremety ED: Negative for edema or tenderness General Extremity: Negative for edema Neuro oriented x3 and CN's II-XII intact bilaterally Sensorium / Orientation: alert; Negative for orientation impaired, lethargic or stuporous Motor Exam: strength 5/5 throughout Psych mental status grossly normal Appearance: Negative for unkempt Attitude: No agitated Mood & Affect: Negative for depressed, anxious or tearful Skin no rashes or lesions noted, no wounds and skin turgor normal General Skin Exam: elasticity normal Lesions: No lesion noted Rashes: No rashes noted Trauma: Negative for abrasion Wounds: Negative for wounds noted MDM MDM MDM Narrative Medical decision making narrative: 52-year-old female suspect viral syndrome possibly COVID versus influenza versus pneumonia versus other viral etiologies. Chest x-ray and COVID and influenza test will be obtained. She requested Toradol for her headache. Lab Data Lab results narrative: Rapid COVID test is positive. Influenza test is negative. Radiography Chest X-Ray - ED: 1 View, Read by ED Physician, Heart, Lungs, Mediastinum, Bony Structures, No Acute Disease and Chronic Changes Diagnostic Testing: Clinical Impression(s) from Imaging Studies Chest X-Ray 06/22/22 04:30 IMPRESSION: No radiographic evidence of acute cardiopulmonary disease. Electronically Signed: Jesse Quiroga MD at 4:54 EST , Chest x-ray, portable, single view interpreted by myself shows no acute abnormality. Normal cardiac silhouette. No infiltrates. No pneumonia. Discharge Plan Triage Chief Complaint: General Illness ED Provider: Ayan John Dx/Rx/DC Orders Clinical Impression: Viral syndrome, COVID-19 Instructions: Human Coronaviruses Prescriptions: No Action levothyroxine 112 MCG tablet 125 mcg PO DAILY omeprazole 20 MG capsule,delayed release(DR/EC) 20 mg PO PRN PRN (Reason: Indigestion) folic acid 1 MG tablet 2 mg PO DAILY@0800 abatacept 125 MG/ML syringe 125 mg SQ FR ibuprofen 600 MG tablet 600 mg PO Q6H PRN PRN (Reason: Mild-Mod Pain (-12/12)) Qty: 30 0RF methotrexate sodium 2.5 MG tablet 12.5 mg PO FR pregabalin 75 mg capsule 75 mg PO DAILY Label Comments: TAKE 1 CAPSULE BY MOUTH EVERY NIGHT AT BEDTIME FOR 4 DAYS AND THEN INCREASE TO TWICE DAILY Primary Care Provider: Dinora Serra Referrals: Dinora Serra DO [Primary Care Provider] - 1 Week if not improving Activity Restrictions/Additional Instructions: Plenty of fluids and rest. Tylenol and Motrin for pain and body aches and fever. Follow-up with your doctor if not improving. Disposition Disposition: Home, Self Care
[2022-06-22] MEDS: Ketorolac 60 MG/2 ML Vial IM (04:27)
--- NOTE | 2022-06-22 04:30 | RAD_ITS ---
INDICATION: cough EXAMINATION/TECHNIQUE: X-RAY - XR Chest 1 View COMPARISON: 2 view chest x-ray from 07/08/2015 FINDINGS: LINES/DEVICES: None. LUNGS: No pulmonary edema or focal airspace consolidation. No sizable pleural effusion. No pneumothorax detected. MEDIASTINUM AND CARDIOVASCULAR STRUCTURES: Heart size within normal limits. Mediastinal contours unremarkable. BONES AND SOFT TISSUES: No acute findings. RAD/Chest 1 View (Portable) IMPRESSION: No radiographic evidence of acute cardiopulmonary disease. Electronically Signed: Jesse Quiroga MD at 4:54 EST ,
[2022-06-22 05:18] VITALS: PULSE 100; RESP 18; O2SAT 98
== END 2022-06-22 05:18 | disposition home or self-care (01) ==
PROVIDERS: Emergency Provider Emergency Medicine; PCP Family Medicine; Visit Provider Emergency Medicine
DX: U07.1 COVID-19 (principal); M06.9 Rheumatoid arthritis, unspecified; B34.9 Viral infection, unspecified; M79.7 Fibromyalgia; Z79.899 Other long term (current) drug therapy; E03.9 Hypothyroidism, unspecified
CPT/HCPCS: 71045; 87428; 96372; 99282

== ENCOUNTER → 2022-06-29 | Outpatient (CLI) | payer BC, SELFPAY ==
--- NOTE | 2022-06-29 15:00 | RAD_ITS ---
EXAM: XR CHEST, 2 VIEWS CLINICAL INDICATION: COVID TECHNIQUE: Frontal and lateral views of the chest. This report was created using [employer] report generation technology. COMPARISON: XR Chest dated 06/22/2022 FINDINGS: LUNGS AND PLEURAL SPACES: Normal. No consolidation or edema. No pneumothorax. No effusion. HEART: Normal heart size. MEDIASTINUM: No mediastinal or hilar mass. BONES/JOINTS: Mild scoliosis. SOFT TISSUES: Normal. RAD/Chest PA and Lateral IMPRESSION: No acute cardiopulmonary abnormality. No interval change. Electronically Signed: Edd Gray MD at 15:25 EST ,
== END | disposition home or self-care (01) ==
PROVIDERS: PCP Family Medicine
DX: U07.1 COVID-19 (principal)
CPT/HCPCS: 71046

== ENCOUNTER → 2022-08-27 | Outpatient (CLI) | payer BC, SELFPAY ==
[2022-08-27 15:16] LABS: Absolute Lymphocyte Count 1.85 X10^3/uL (0.83-4.51); Absolute Neutrophil Count 3.7 X10^3/uL (2.0-7.7); Basophil# 0.04 X10^3/uL; Basophil% 0.6 % (0-1); Eosinophil# 0.14 X10^3/uL; Eosinophils% 2.3 % (0-5); Hematocrit 40.1 % (37-47); Hemoglobin 13.4 g/dL (12.0-15.0); Lymphocyte # 1.85 X10^3/ul (0.83-4.51); Lymphocyte % 29.7 % (19-41); Mean Corp Hgb Conc 33.4 g/dL (32-36); Mean Corpuscular Hgb 30.9 pg (27.0-32.0); Mean Corpuscular Volume 92.4 fL (81-99); Mean Platelet Vol. 10.7 fl (6.2-12.0); Monocyte# 0.51 X10^3/uL; Monocyte% 8.2 % (0-10); NRBC Flagged by Analyzer 0 % (0-5); Neutrophil # 3.66 X10^3/uL (2.7-7.7); Neutrophil % 58.9 % (47-70); Platelet Count 392 K/mm3 (150-450); RBC Distribution Width CV 11.7 % (11.6-14.6); RBC Distribution Width SD 39.4 fl (35.1-43.9); Red Blood Count 4.34 M/mm3 (4.2-5.4); White Blood Count 6.2 K/mm3 (4.4-11.0)
[2022-08-27 15:56] LABS: ALB/GLOB Ratio 1.1 RATIO (0.9-2.4); AST(SGOT) 14 U/L (15-37); Alanine Aminotransfer ALT/SGPT 25 U/L (13-56); Albumin, Serum 3.8 g/dL (3.2-5.0); Alkaline Phosphatase 49 U/L (45-117); Anion Gap 4 (5-15); BUN 12 mg/dL (7-18); BUN/Creat Ratio 16.4 RATIO (10-20); Calcium,Total 9.4 mg/dL (8.5-10.1); Chloride 108 mmol/L (98-107); Creatinine, Serum 0.73 mg/dL (0.55-1.02); EST Glomerular Filtration Rate 88 mL/min (>60); Est Glom Filt Rate - Afr Amer 107 mL/min (>60); Globulin 3.5 g/dL (2.2-4.2); Glucose 91 mg/dL (74-106); Protein, Total 7.3 g/dL (6.4-8.2); Sodium Level 141 mmol/L (136-145)
== END | disposition home or self-care (01) ==
PROVIDERS: PCP Family Medicine; Referring Provider Internal Medicine Rheumatology; Visit Provider Internal Medicine Rheumatology
DX: M06.079 Rheumatoid arthritis without rheumatoid factor, unspecified ankle and foot (principal); Z79.899 Other long term (current) drug therapy
CPT/HCPCS: 36415; 80053; 85025

== ENCOUNTER 2022-10-09 14:00 | Outpatient (RCR) | payer BC, SELFPAY ==
--- NOTE | 2022-09-25 16:33 | HP.PTEVAL_ITS ---
Patient's Visit Information JOSE ALFREDO BURGOS is a 52 year old F referred to Physical Therapy by ZINA Benitez with a diagnosis of Spondylosis, arthropathy. Date of Evaluation: 09/25/22 Physical Therapist: Hang Hernandez, DPT, OCS, CSCS - Visit Plan Frequency: 2-3x /Week Duration: 4-6 Weeks Plan: 2-3x/week for 4 weeks for aquatic therapy to address: 1. HS, gastroc, psoas, quad stretches to HEP. 2. LB ext ROM to HEP. 3. core strength to HEP. 4. body mechanics with lifting - Subjective Chronic back pain R LB always. has RA. Hurts for years. Hurts to lie on back. Started therapy in water in June but got covid. Pain 7/10 in r LB later in day. Mornings usually better. Works at [employer] and lifts and bend all day. Hurts a little to lift but volume is the problem. Sleep is interrupted. Wakes up with pain after 4 hours. Has had injections and meds and they don't help. Has not seen spine spine doctor, Rhumatologist sent to pain management. Wants to get in pool and continue therapy that she missed out on due to sickness. - Pain R LB Pain Intensity (Out of 10): 6 Pain Intensity Range: 7 - Objective Walks with stiffness in her hips and short steps but I. transfer I without UE. Posture is flattened Lumbar lordosis. Spinal extension limited in Lumbar and painful centrally. flexion is slow and tight in legs but WFL, SB are min deficit and feel tight B. reflexes 2/3 patella and achilles. Sensation LE WNL to gross light touch. Strength hips 4-, knees 4 and ankles 4, core abs 3+ and extension 3+. - Slump. - SLR. Slight pain with instability testing centrally in LB. - Balance/Special Test Scores Oswestry Low Back Score: 27 - Goals Goal 1:: pain 0-3 /10 at allt imes and manaeable Goal Time Frame: 4-6 Weeks Goal 2:: oswestry score 10 or better Goal Time Frame: 4-6 Weeks Goal 3:: Patient feel 50% better and I in ex to stretch legs and move/strengthen LB. Goal Time Frame: 4-6 Weeks Goal 4:: Work without increased pain Goal Time Frame: 4-6 Weeks - Rehabilitation Potential Physical Therapy Diagnosis: LBP chronic lijkely from degeneration vs discal. Rehabilitation Potential: Questionable - Anticipated Interventions Patient/Client Instruction: Educate patient on: Condition, Plan of Care For the Purpose of:: To decrease pain, To increase ROM, To improve nutrient delivery to tissue, To improve muscle performance and motor function, To increase tolerance to activity/condition/position Therapeutic Exercise to Include: Strength training, Postural training, Flexibilty training, Gait and locomotor training, In an aquatic setting, Passive ROM, Active ROM, Dynamic Lumbar Stabilization For the Purpose of:: To decrease pain, To increase ROM, To improve nutrient delivery to tissue, To increase oxygenation perfusion, To improve ability to perform ADL's, To increase tolerance to activity/condition/position, To improve ability of physical actions for home/community/work/leisure Thank you for the opportunity to evaluate your patient. For Medicare and Medicare HMO plans, please review the plan of care and approve it. It will need to be FAXED BACK to us at [phone] for Medicare purposes. For Medicare only, by signing this I certify the plan of care. Please let me know if there are questions or concerns regarding this plan of care. Physician Signature: Date:
--- NOTE | 2022-10-24 14:30 | HP.PT.NRP ---
JOSE ALFREDO BURGOS was seen in my office for initial evaluation on 09/25/22. The following Plan of Care was established for this patient: Initial Frequency: 2-3x /Week Initial Duration: 4-6 Weeks Patient/Client Instruction: Educate patient on: Condition, Plan of Care For the Purpose of:: To decrease pain, To increase ROM, To improve nutrient delivery to tissue, To improve muscle performance and motor function, To increase tolerance to activity/condition/position Therapeutic Exercise to Include: Strength training, Postural training, Flexibilty training, Gait and locomotor training, In an aquatic setting, Passive ROM, Active ROM, Dynamic Lumbar Stabilization For the Purpose of:: To decrease pain, To increase ROM, To improve nutrient delivery to tissue, To increase oxygenation perfusion, To improve ability to perform ADL's, To increase tolerance to activity/condition/position, To improve ability of physical actions for home/community/work/leisure This patient was last seen in our office 10/09/22. Pertinent comments regarding their Physical therapy will appear below: Pt seen for one treatment and two no shows. cancelled the rest of her visits stating she cannot make it to therapy. will discontinue her at this time at her request. At this point I will be discontinuing this patient from physical therapy. I would be happy to see this patient again in the future if found appropriate by the physician. Thank you! Hnag Hernandez, DPT, OCS, CSCS Balance/Gait/Functional tests - Balance/Special Test Scores Oswestry Low Back Score: 27
== END 2022-10-09 19:00 | disposition home or self-care (01) ==
LOC: PT 14:00
PROVIDERS: PCP Family Medicine; Referring Provider Nurse Practitioner Family; Visit Provider Nurse Practitioner Family
DX: M47.27 Other spondylosis with radiculopathy, lumbosacral region (principal); M51.37 Other intervertebral disc degeneration, lumbosacral region; M46.96 Unspecified inflammatory spondylopathy, lumbar region
CPT/HCPCS: 97113; 97162

== ENCOUNTER → 2022-11-23 | Outpatient (CLI) | payer BC, SELFPAY ==
[2022-11-23 12:08] LABS: Absolute Lymphocyte Count 1.95 X10^3/uL (0.83-4.51); Absolute Neutrophil Count 3.1 X10^3/uL (2.0-7.7); Basophil# 0.06 X10^3/uL; Basophil% 1.1 % (0-1); Eosinophil# 0.17 X10^3/uL; Hematocrit 40.3 % (37-47); Hemoglobin 13.2 g/dL (12.0-15.0); Lymphocyte # 1.95 X10^3/ul (0.83-4.51); Lymphocyte % 34.3 % (19-41); Mean Corp Hgb Conc 32.8 g/dL (32-36); Mean Corpuscular Hgb 30.9 pg (27.0-32.0); Mean Corpuscular Volume 94.4 fL (81-99); Mean Platelet Vol. 10.9 fl (6.2-12.0); NRBC Flagged by Analyzer 0 % (0-5); Neutrophil # 3.07 X10^3/uL (2.7-7.7); Neutrophil % 54.1 % (47-70); Platelet Count 319 K/mm3 (150-450); RBC Distribution Width CV 12.2 % (11.6-14.6); Red Blood Count 4.27 M/mm3 (4.2-5.4); White Blood Count 5.7 K/mm3 (4.4-11.0)
[2022-11-23 12:32] LABS: ALB/GLOB Ratio 1.1 RATIO (0.9-2.4); AST(SGOT) 20 U/L (15-37); Alanine Aminotransfer ALT/SGPT 30 U/L (13-56); Albumin, Serum 3.7 g/dL (3.2-5.0); Alkaline Phosphatase 49 U/L (45-117); Anion Gap 1 (5-15); BUN 19 mg/dL (7-18); BUN/Creat Ratio 23.9 RATIO (10-20); Calcium,Total 9.1 mg/dL (8.5-10.1); Chloride 107 mmol/L (98-107); Creatinine, Serum 0.79 mg/dL (0.55-1.02); EST Glomerular Filtration Rate 81 mL/min (>60); Est Glom Filt Rate - Afr Amer 97 mL/min (>60); Globulin 3.3 g/dL (2.2-4.2); Glucose 125 mg/dL (74-106); Potassium 3.5 mmol/L (3.5-5.1); Sodium Level 137 mmol/L (136-145)
== END | disposition home or self-care (01) ==
LOC: MTLAB 10:33
PROVIDERS: PCP Family Medicine; Referring Provider Internal Medicine Rheumatology; Visit Provider Internal Medicine Rheumatology
DX: M06.079 Rheumatoid arthritis without rheumatoid factor, unspecified ankle and foot (principal); M79.7 Fibromyalgia; Z79.899 Other long term (current) drug therapy
CPT/HCPCS: 36415; 80053; 85025

== ENCOUNTER → 2023-02-19 | Outpatient (CLI) | payer BC, SELFPAY ==
[2023-02-19 18:16] LABS: Absolute Lymphocyte Count 1.99 X10^3/uL (0.83-4.51); Absolute Neutrophil Count 3.2 X10^3/uL (2.0-7.7); Basophil# 0.03 X10^3/uL; Basophil% 0.5 % (0-1); Eosinophil# 0.21 X10^3/uL; Eosinophils% 3.5 % (0-5); Hematocrit 39.1 % (37-47); Hemoglobin 13.1 g/dL (12.0-15.0); Lymphocyte # 1.99 X10^3/ul (0.83-4.51); Lymphocyte % 33.4 % (19-41); Mean Corp Hgb Conc 33.5 g/dL (32-36); Mean Corpuscular Hgb 30.7 pg (27.0-32.0); Mean Corpuscular Volume 91.6 fL (81-99); Mean Platelet Vol. 10.9 fl (6.2-12.0); Monocyte# 0.53 X10^3/uL; Monocyte% 8.9 % (0-10); NRBC Flagged by Analyzer 0 % (0-5); Neutrophil # 3.17 X10^3/uL (2.7-7.7); Neutrophil % 53.4 % (47-70); Platelet Count 300 K/mm3 (150-450); RBC Distribution Width CV 12.1 % (11.6-14.6); RBC Distribution Width SD 40.4 fl (35.1-43.9); Red Blood Count 4.27 M/mm3 (4.2-5.4)
[2023-02-19 18:58] LABS: ALB/GLOB Ratio 1.3 RATIO (0.9-2.4); AST(SGOT) 21 U/L (15-37); Alanine Aminotransfer ALT/SGPT 27 U/L (13-56); Albumin, Serum 3.9 g/dL (3.2-5.0); Alkaline Phosphatase 50 U/L (45-117); Anion Gap 4 (5-15); BUN 18 mg/dL (7-18); BUN/Creat Ratio 27.8 RATIO (10-20); Calcium,Total 9.4 mg/dL (8.5-10.1); Chloride 109 mmol/L (98-107); Creatinine, Serum 0.65 mg/dL (0.55-1.02); EST Glomerular Filtration Rate 102 mL/min (>60); Est Glom Filt Rate - Afr Amer 123 mL/min (>60); Globulin 3.1 g/dL (2.2-4.2); Glucose 93 mg/dL (74-106); Potassium 3.6 mmol/L (3.5-5.1); Sodium Level 138 mmol/L (136-145)
== END | disposition home or self-care (01) ==
LOC: MTLAB 16:01
PROVIDERS: PCP Family Medicine; Referring Provider Internal Medicine Rheumatology; Visit Provider Internal Medicine Rheumatology
DX: M06.079 Rheumatoid arthritis without rheumatoid factor, unspecified ankle and foot (principal); Z79.899 Other long term (current) drug therapy
CPT/HCPCS: 36415; 80053; 85025

== ENCOUNTER 2023-04-23 18:13 | Inpatient (IN) | payer BC, SELFPAY ==
[2023-04-23 18:15] VITALS: BP 152/99; PULSE 100; RESP 18; TEMP 36.7; O2SAT 100; BMI 29.0
--- NOTE | 2023-04-23 19:17 | EDS_ITS ---
HPI <ZINA Lan - Last Filed: 04/23/23 19:48> History of Present Illness Chief Complaint: Abd Pain Narrative Narrative: Patient is a 53-year-old female with history of rheumatoid arthritis, fibromyalgia, who presents to the emergency department for multiple complaints. Patient states that she has been constipated for 1 week, has not had any bowel movement, she states that this is abnormal for her. Over the last 4 days, she has noticed that the pain in her abdomen is getting worse, she feels more bloated, now she has pain to her lower back. She believes it secondary to the swelling in her abdomen. Patient states that it is harder for her to urinate, she denies any fever or chills. Patient states to have intermittent nausea however no vomiting. Patient has no appetite. PFSH <ZINA Lan - Last Filed: 04/23/23 19:48> [facility] Medical History Arthritis Arthritis, rheumatoid Fibromyalgia Hypothyroidism Home Medications levothyroxine 112 mcg tablet 125 mcg PO DAILY 06/25/13 [History Last Taken 12/04/17 08:00] omeprazole 20 mg capsule,delayed release 20 mg PO PRN PRN Indigestion 11/27/17 [History Last Taken Unknown] ibuprofen 600 mg tablet 600 mg PO Q6H PRN PRN Mild-Mod Pain (1-5/10) #30 tabs 12/04/17 [Rx Last Taken Unknown] liothyronine 5 mcg tablet 5 mcg PO DAILY 04/23/23 [History Last Taken Unknown] tofacitinib 11 mg tablet,extended release 24 hr (Xeljanz XR) 11 mg PO Q24H 04/23/23 [History Last Taken Unknown] Allergy/AdvReac Type Severity Reaction Status Date / Time ceftriaxone sodium Allergy Rash Verified 04/23/23 18:15 [From Rocephin] oxycodone AdvReac Nausea/Vom/ Verified 04/23/23 18:15 Diarrhea Surgical History History of carpal tunnel release History of foot operation History of neck surgery History of shoulder surgery History of tonsillectomy Social History Smoking Status: Never smoker alcohol intake: current alcohol intake frequency: holidays/special occasions only ROS <ZINA Lan - Last Filed: 04/23/23 19:48> ROS ED ROS Narrative Constitutional: Negative for fever, chills, weight loss, weakness Eyes: Negative for vision loss, vision change, double vision ENT: Negative for any sore throat, ear pain, congestion Cardiovascular: Negative for any chest pain, tightness, palpitations Respiratory: Negative for any cough, sputum production, hemoptysis, dyspnea, dyspnea on exertion, orthopnea Gastrointestinal: Negative for any vomiting, diarrhea, blood in stool, blood in vomit. Positive for abdominal pain, nausea, constipation : Negative for any urinary frequency, dysuria, retention, blood in urine Muscle skeletal: Negative for any muscle joint pain, stiffness, myalgias, arthralgias, neck pain. Positive for lower back pain Neurological: Negative for any headache, syncope, numbness or tingling, dizziness Skin: Negative for any rashes, lumps, itching, abrasions, lacerations Psychiatric: Negative for any depression, anxiety, stress, suicidal ideation, homicidal ideation Hematologic: Negative for any easy bruising, excessive bruising, easy bleeding Allergies: Negative for any eczema, hives, rash EXAM <ZINA Lan - Last Filed: 04/23/23 19:48> Physical Exam Narrative Exam Narrative: PatientVital signs reviewed. HEET: Head normocephalic atraumatic, TMs clear bilaterally. Posterior pharynx is clear, moist mucous membranes. Nares clear bilaterally. Neck: Supple with no lymphadenopathy or tenderness. No signs of meningismus, negative jolt sign. Cardiac: Regular rate and rhythm no murmurs gallops or rubs, equal peripheral pulses bilaterally. Respiratory: Lungs clear to auscultation bilaterally. No chest tenderness. Abdomen: Soft. No abdominal bruit or pulsatile masses. No hepatosplenomegaly. Patient has pain to the suprapubic area as well as the left lower quadrant of her abdomen. Patient has hyperactive bowel sounds. Extremities: No peripheral edema, no signs of gross trauma or deformity. Active full range of motion of all extremities. Neuro: Cranial nerves II through XII intact, no focal neurological deficits. Skin: Clean dry and intact with no rash, purpura, petechiae, vesicles or pustules. Backs/flank: No CVA tenderness, no midline spinal tenderness, no deformity. Negative for any red flag symptoms Psych: Normal mood and affect. No SI, HI or acute psychosis. Rectal: Rectal exam was offered impaction, she refused at this time that she would wait for the CAT scan.01 Const Vital Signs: 04/23/23 18:15 04/23/23 21:41 Temperature 98.1 F Temperature Source Temporal Pulse Rate 100 74 Respiratory Rate 18 18 Blood Pressure 152/99 H 108/54 L Blood Pressure Mean 116 72 Pulse Ox 100 99 Oxygen Delivery Method Room Air Room Air Positive well nourished and well developed General Appearance ED: well developed <Jass Valderrama MD - Last Filed: 04/23/23 22:32> Physical Exam Const Vital Signs: 04/23/23 18:15 04/23/23 21:41 Temperature 98.1 F Temperature Source Temporal Pulse Rate 100 74 Respiratory Rate 18 18 Blood Pressure 152/99 H 108/54 L Blood Pressure Mean 116 72 Pulse Ox 100 99 Oxygen Delivery Method Room Air Room Air MDM <ZINA Lan - Last Filed: 04/23/23 19:48> MDM Lab Data Labs: Laboratory Results - last 24 hr 04/23/23 19:30 WBC 10.6 RBC 3.95 L Hgb 11.6 L Hct 35.7 L MCV 90.4 MCH 29.4 MCHC 32.5 RDW Std Deviation 39.5 RDW Coeff of Jyothi 11.9 Plt Count 394 MPV 10.2 Immature Gran % (Auto) 0.300 Neut % (Auto) 71.5 H Lymph % (Auto) 15.9 L Laporte % (Auto) 9.5 Eos % (Auto) 2.5 Baso % (Auto) 0.3 Absolute Neuts (auto) 7.6 Absolute Lymphs (auto) 1.69 Nucleated RBC % 0 Sodium 138 Potassium 3.8 Chloride 105 Carbon Dioxide 30.0 Anion Gap 3 L BUN 16 Creatinine 0.67 Estim Creat Clear Calc 97.96 Est GFR (MDRD) Af Amer 118 Est GFR (MDRD) Non-Af 98 BUN/Creatinine Ratio 23.8 H Glucose 101 Calcium 8.7 Total Bilirubin 0.50 AST 14 L ALT 23 Alkaline Phosphatase 59 Total Protein 7.1 Albumin 3.3 Globulin 3.8 Albumin/Globulin Ratio 0.9 Lipase 20 Radiography Diagnostic Testing: Clinical Impression(s) from Imaging Studies Abdomen/Pelvis CT 04/23/23 20:15 IMPRESSION: Acute sigmoid diverticulitis and probable abscess as above. No free air. Electronically Signed: Sonido Cazares MD at 21:21 EDT Reading Location ID and State: [address] [place] [address] Tel , Service support , ADDENDUM: 04/23/232146 IMPRESSION: Acute sigmoid diverticulitis and probable abscess as above. No free air. N.B. : The above Results were Read Back by Sonido Cazares MD to Jass Valderrama MD, and understanding confirmed on 04/23/2023 21:40:43 (ET). Electronically Signed: Sonido Cazares MD at 21:21 EDT Reading Location ID and State: [facility] / [place] Tel , Service support , Treatment and Re-Evaluation :: Patient appears to be in mild distress secondary to lower abdominal discomfort. Patient presents the emergency department with constipation, abdominal pain, back pain. Patient states that she is having difficulty urinating, sometimes have urinary leaking secondary to the pressure in her abdomen. Patient received a full abdominal work-up, laboratory values, as well as CT scan of the abdomen pelvis with IV contrast. This is concerning for any significant constipation, bowel obstruction, diverticulitis colitis. This will also look into the lower lumbar spine to ensure there is no abnormality. Patient was given IV fluids, Bentyl <Jass Valderrama MD - Last Filed: 04/23/23 22:32> [facility] Narrative Medical decision making narrative: Dr. Valderrama: I have personally performed a face to face assessment of the patient and have reviewed the CHANDLER Note. I performed a substantive portion of the visit including all aspects of the following. My doe findings include: History is obstipation and no bowel movement for 1 week, lower abdominal pain left lower quadrant to suprapubic. Exam is afebrile. Vital signs noted. Abdomen soft with mild tenderness suprapubic area to left lower quadrant, no guarding or rebound. Regular rate and rhythm. Lungs clear to auscultation bilaterally. Medical Decision Making: Check labs. Check CT. I reviewed the CT imaging and received a call from the radiologist regarding the read. She does have sigmoid diverticulitis with a 4.1 x 2.8 cm abscess above the bladder/diverticular abscess. As she has an allergy to Rocephin she was started on ciprofloxacin and Flagyl intravenously. She was given morphine for analgesia. I discussed the patient with Dr. Roberts with general surgery who will admit the patient to the medical surgical floor. Patient is in stable condition. Other additions or changes: [None] History & Record Review Discussion w/independent historian: Patient Additional record(s) reviewed:: Prior ED visit and Prior labs Lab Data Attestation: I reviewed the patient's lab results. Labs: Laboratory Results - last 24 hr 04/23/23 19:30 WBC 10.6 RBC 3.95 L Hgb 11.6 L Hct 35.7 L MCV 90.4 MCH 29.4 MCHC 32.5 RDW Std Deviation 39.5 RDW Coeff of Jyothi 11.9 Plt Count 394 MPV 10.2 Immature Gran % (Auto) 0.300 Neut % (Auto) 71.5 H Lymph % (Auto) 15.9 L Laporte % (Auto) 9.5 Eos % (Auto) 2.5 Baso % (Auto) 0.3 Absolute Neuts (auto) 7.6 Absolute Lymphs (auto) 1.69 Nucleated RBC % 0 Sodium 138 Potassium 3.8 Chloride 105 Carbon Dioxide 30.0 Anion Gap 3 L BUN 16 Creatinine 0.67 Estim Creat Clear Calc 97.96 Est GFR (MDRD) Af Amer 118 Est GFR (MDRD) Non-Af 98 BUN/Creatinine Ratio 23.8 H Glucose 101 Calcium 8.7 Total Bilirubin 0.50 AST 14 L ALT 23 Alkaline Phosphatase 59 Total Protein 7.1 Albumin 3.3 Globulin 3.8 Albumin/Globulin Ratio 0.9 Lipase 20 Radiography Diagnostic Testing: Clinical Impression(s) from Imaging Studies Abdomen/Pelvis CT 04/23/23 20:15 IMPRESSION: Acute sigmoid diverticulitis and probable abscess as above. No free air. Electronically Signed: Sonido Cazares MD at 21:21 EDT , ADDENDUM: 04/23/232146 IMPRESSION: Acute sigmoid diverticulitis and probable abscess as above. No free air. N.B. : The above Results were Read Back by Sonido Cazares MD to Jass Valderrama MD, and understanding confirmed on 04/23/2023 21:40:43 (ET). Electronically Signed: Sonido Cazares MD at 21:21 EDT , Management Discussion w/another healthcare provider: Certified Prosthetist/Orthotist (Dr. Roberts, general surgery) Discharge Plan Triage Chief Complaint: Abd Pain Other Complaint: Constipation ED Midlevel Provider: Iban Torres ED Provider: Jass Valderrama Dx/Rx/DC Orders Clinical Impression: Diverticulitis, Colonic diverticular abscess, Abdominal pain Prescriptions: No Action levothyroxine 112 MCG tablet 125 mcg PO DAILY omeprazole 20 MG capsule,delayed release(DR/EC) 20 mg PO PRN PRN (Reason: Indigestion) ibuprofen 600 MG tablet 600 mg PO Q6H PRN PRN (Reason: Mild-Mod Pain (1-12/12)) Qty: 30 0RF Xeljanz XR 11 mg tablet extended release 24 hr 11 mg PO Q24H liothyronine 5 mcg tablet 5 mcg PO DAILY Patient Comments: TAKE 1 TABLET BY MOUTH DAILY take with levothoroxine Primary Care Provider: Dinora Serra Referrals: Dinora Serra DO [Primary Care Provider] -
[2023-04-23] MEDS: Dicyclomine 10 MG Capsule 20 MG PO (19:25)
[2023-04-23] MEDS: 0.9% Normal Saline (1000mL) 1,000 ML 1000 ML IV (19:25)
[2023-04-23 19:44] LABS: Absolute Lymphocyte Count 1.69 X10^3/uL (0.83-4.51); Absolute Neutrophil Count 7.6 X10^3/uL (2.0-7.7); Basophil# 0.03 X10^3/uL; Basophil% 0.3 % (0-1); Eosinophil# 0.27 X10^3/uL; Eosinophils% 2.5 % (0-5); Hematocrit 35.7 % (37-47); Hemoglobin 11.6 g/dL (12.0-15.0); Lymphocyte # 1.69 X10^3/ul (0.83-4.51); Lymphocyte % 15.9 % (19-41); Mean Corp Hgb Conc 32.5 g/dL (32-36); Mean Corpuscular Hgb 29.4 pg (27.0-32.0); Mean Corpuscular Volume 90.4 fL (81-99); Mean Platelet Vol. 10.2 fl (6.2-12.0); Monocyte# 1.01 X10^3/uL; Monocyte% 9.5 % (0-10); NRBC Flagged by Analyzer 0 % (0-5); Neutrophil # 7.58 X10^3/uL (2.7-7.7); Neutrophil % 71.5 % (47-70); Platelet Count 394 K/mm3 (150-450); RBC Distribution Width CV 11.9 % (11.6-14.6); RBC Distribution Width SD 39.5 fl (35.1-43.9); Red Blood Count 3.95 M/mm3 (4.2-5.4); White Blood Count 10.6 K/mm3 (4.4-11.0)
[2023-04-23 20:01] LABS: ALB/GLOB Ratio 0.9 RATIO (0.9-2.4); AST(SGOT) 14 U/L (15-37); Alanine Aminotransfer ALT/SGPT 23 U/L (13-56); Albumin, Serum 3.3 g/dL (3.2-5.0); Alkaline Phosphatase 59 U/L (45-117); Anion Gap 3 (5-15); BUN 16 mg/dL (7-18); BUN/Creat Ratio 23.8 RATIO (10-20); Calcium,Total 8.7 mg/dL (8.5-10.1); Chloride 105 mmol/L (98-107); Creatinine, Serum 0.67 mg/dL (0.55-1.02); EST Glomerular Filtration Rate 98 mL/min (>60); Est Glom Filt Rate - Afr Amer 118 mL/min (>60); Estimated Creatinine Clearance 97.96 ml/min; Globulin 3.8 g/dL (2.2-4.2); Glucose 101 mg/dL (74-106); Lipase 20 U/L (13-75); Potassium 3.8 mmol/L (3.5-5.1); Protein, Total 7.1 g/dL (6.4-8.2); Sodium Level 138 mmol/L (136-145)
--- NOTE | 2023-04-23 20:15 | CT_ITS ---
STUDY: CT ABDOMEN AND PELVIS WITH CONTRAST REASON FOR EXAM: Female, 53 years old. abdominal pain RADIATION DOSAGE (If Supplied By Facility): CTDIvol = ( 14.54 ) mGy, DLP = ( 1041.42 ) mGycm TECHNIQUE: Transaxial images were obtained from the dome of the diaphragm to the symphysis pubis without oral contrast. IV 100mL Isovue-370 was administered. Sagittal and coronal images were reconstructed. Individualized dose optimization techniques were used for this CT. COMPARISON: July 04, 2019 CT abdomen and pelvis FINDINGS: The visualized lung bases are unremarkable. The visualized portions of the heart are within normal limits. Normal liver. Normal gallbladder and extrahepatic biliary system. Normal spleen. Normal pancreas. Normal bilateral adrenal glands. Normal right kidney. Normal left kidney. Small hiatal hernia. Air-fluid levels in the small bowel. Acute sigmoid diverticulitis without fluid collection noted superior to the bladder measuring 4.1 x 2.8 cm in AP and transverse dimensions. No free air. The appendix is visualized and appears normal. Normal abdominal aorta. Normal inferior vena cava. Normal retroperitoneum. Normal urinary bladder. Normal abdominal wall. Normal osseous structures. CT/Abdomen/Pelvis W IV Cont ONLY IMPRESSION: Acute sigmoid diverticulitis and probable abscess as above. No free air. N.B. : The above Results were Read Back by Sonido Cazares MD to Jass Valderrama MD, and understanding confirmed on 04/23/2023 21:40:43 (ET). Electronically Signed: Sonido Cazares MD at 21:21 EDT ,
[2023-04-23 21:41] VITALS: BP 108/54; PULSE 74; RESP 18; O2SAT 99
[2023-04-23] MEDS: Morphine 4 MG/ML Syringe IV (21:44)
[2023-04-23] MEDS: Ciprofloxacin 400 MG/200 ML BAG 200 MG IV (22:27)
--- NOTE | 2023-04-23 22:33 | PCM.HP.STD ---
HPI - General General Date of Admission: 04/23/23 Date of Service: 04/23/23 Chief Complaint: Abdominal pain with associated constipation HPI Narrative JOSE ALFREDO ATKINS, is a 53 F who presents to [facility] with complaints of severe constipation times last 1 week with associated lower back and abdominal discomfort. Ms. Atkins states that her presentation was delayed on the account of her attributing all of this to some chronic back pain. She notes that she tried both laxatives and stool softeners without positive effect. She states that the lack of bowel movement and the presence of suprapubic pain have limited her ability to eat. She notes that she has been able to urinate but has felt some associated pressure with this activity. She denies any feeling of passage of air or burning. She denies any fevers but did have some chills earlier today. Ms. Atkins has no prior history of diverticulitis, however she reports a history of a colonoscopy over 5 years ago through the [facility] outpatient facility. As she recalls the results were largely normal save findings of probable diverticulosis. Patient has no family history of colon cancer or inflammatory bowel disease. ED work-up is notable for CBC with normal WBC but evidence of mild neutrophilia. CT imaging of the abdomen pelvis shows evidence of a 4 cm pericolonic abscess sitting just above the bladder. Patient has a prior surgical history of laparoscopic hysterectomy [facility] Medical History Arthritis Arthritis, rheumatoid Fibromyalgia Hypothyroidism Home Medications levothyroxine 112 mcg tablet 125 mcg PO DAILY 06/25/13 [History Last Taken 12/04/17 08:00] omeprazole 20 mg capsule,delayed release 20 mg PO PRN PRN Indigestion 11/27/17 [History Last Taken Unknown] ibuprofen 600 mg tablet 600 mg PO Q6H PRN PRN Mild-Mod Pain (1-5/10) #30 tabs 12/04/17 [Rx Last Taken Unknown] liothyronine 5 mcg tablet 5 mcg PO DAILY 04/23/23 [History Last Taken Unknown] tofacitinib 11 mg tablet,extended release 24 hr (Xeljanz XR) 11 mg PO Q24H 04/23/23 [History Last Taken Unknown] Allergy/AdvReac Type Severity Reaction Status Date / Time ceftriaxone sodium Allergy Rash Verified 04/23/23 18:15 [From Rocephin] oxycodone AdvReac Nausea/Vom/ Verified 04/23/23 18:15 Diarrhea Surgical History History of carpal tunnel release History of foot operation History of neck surgery History of shoulder surgery History of tonsillectomy Social History Smoking Status: Never smoker alcohol intake: current alcohol intake frequency: holidays/special occasions only ROS Constitutional Constitutional: Reports chills; Denies fever(s) Gastrointestinal Gastrointestinal: Reports abdominal pain and constipation Genitourinary Genitourinary: Denies dysuria Musculoskeletal Musculoskeletal: Reports back pain Vital Signs Vital Signs Vital Signs: 04/23/23 18:15 04/23/23 21:41 Temperature 98.1 F Temperature Source Temporal Pulse Rate 100 74 Respiratory Rate 18 18 Blood Pressure 152/99 H 108/54 L Blood Pressure Mean 116 72 Pulse Ox 100 99 Oxygen Delivery Method Room Air Room Air Weight Weight: 191 lb Body Mass Index (BMI) 29.0 Physical Exam Const alert, oriented x3 and well nourished Constitutional Narrative: Mild distress General Appearance: cooperative Resp normal respiratory effort GI GI Narrative: Nondistended, well-healed port site scars, soft, suprapubic tenderness present. Mild voluntary guarding present. No rebound tenderness present. Results Lab / Micro Data 04/23/23 19:30 04/23/23 19:30 Labs: Laboratory Results - last 24 hr 04/23/23 19:30: WBC 10.6, RBC 3.95 L, Hgb 11.6 L, Hct 35.7 L, MCV 90.4, MCH 29.4, MCHC 32.5, RDW Std Deviation 39.5, RDW Coeff of Jyothi 11.9, Plt Count 394, MPV 10.2, Immature Gran % (Auto) 0.300, Neut % (Auto) 71.5 H, Lymph % (Auto) 15.9 L, [place] % (Auto) 9.5, Eos % (Auto) 2.5, Baso % (Auto) 0.3, Absolute Neuts (auto) 7.6, Absolute Lymphs (auto) 1.69, Nucleated RBC % 0, Sodium 138, Potassium 3.8, Chloride 105, Carbon Dioxide 30.0, Anion Gap 3 L, BUN 16, Creatinine 0.67, Estim Creat Clear Calc 97.96, Est GFR (MDRD) Af Amer 118, Est GFR (MDRD) Non-Af 98, BUN/Creatinine Ratio 23.8 H, Glucose 101, Calcium 8.7, Total Bilirubin 0.50, AST 14 L, ALT 23, Alkaline Phosphatase 59, Total Protein 7.1, Albumin 3.3, Globulin 3.8, Albumin/Globulin Ratio 0.9, Lipase 20 Radiology Impression Abdomen/Pelvis CT 04/23/23 20:15 IMPRESSION: Acute sigmoid diverticulitis and probable abscess as above. No free air. Electronically Signed: Sonido Cazares MD at 21:21 EDT Reading Location ID and State: [facility] Tel , Service support , ADDENDUM: 04/23/232146 IMPRESSION: Acute sigmoid diverticulitis and probable abscess as above. No free air. N.B. : The above Results were Read Back by Sonido Cazares MD to Jass Valderrama MD, and understanding confirmed on 04/23/2023 21:40:43 (ET). Electronically Signed: Sonido Cazares MD at 21:21 EDT Reading Location ID and State: [id number] Tel , Service support , Assessment & Plan Assessment/Plan (1) Colonic diverticular abscess: PLAN: This is a 53-year-old female with her first presentation of acute diverticulitis which qualifies as complicated diverticulitis on the account of a pericolonic abscess sitting just above the bladder. This abscess measures up to 4 cm in greatest dimension. Patient is clinically stable and there is no leukocytosis with her CBC. Given the stability, I have recommended we proceed with conservative management upfront. However, given the size of the abscess, plan to consult radiology tomorrow for possible percutaneous CT?guided drainage (there appears to be a possible transgluteal approach to the abscess via my independent review of the patient's CT imaging). For the interim we will plan to proceed with bowel rest, IV fluid resuscitation, IV antibiotics (patient has an allergy to cephalosporins), and will hold her Orencia in the event that she would require further intervention. Lastly I will obtain a urinalysis given the proximity to the patient's bladder. Charges/Coding Visit Charges Inpatient E&M: 73790 Init Hosp L2
[2023-04-23 22:35] VITALS: BP 166/88; PULSE 87; RESP 18; TEMP 36.7; O2SAT 97
[2023-04-23 23:09] VITALS: BMI 29.0
[2023-04-23 23:20] VITALS: BP 150/84; PULSE 75; RESP 15; TEMP 36.8; O2SAT 100
[2023-04-23] MEDS: metroNIDAZOLE 500 MG/100 ML BAG 100 MG IV (23:32)
[2023-04-23] MEDS: HYDROmorphone 0.5 MG/0.5 ML SYRINGE IV (23:49)
[2023-04-23 23:59] LABS: Bacteria 0 SEEN /hpf (None Seen); Mucous, Urine 0 SEEN /hpf (<or=2+); Red Blood Cells-Urine 0 SEEN /hpf (0-5); Squamous Epithelial Cells - UA 0 SEEN /hpf (5-10); White Blood Cells 0 SEEN /hpf (0-5)
[2023-04-24] VITALS (14 sets, daily range): BP systolic 111–139; BP diastolic 62–76; PULSE 66–97; RESP 12–18; TEMP 36.7–37.2; O2SAT 93–100
[2023-04-24 00:01] LABS: Color, Urine Yellow (Yellow); Glucose, Dipstick Normal (Normal); Ketone-Dipstick Negative (Negative); Leukocyte Esterase-Dipstick Negative /ul (Negative); Nitrite-Dipstick Negative (Negative); Occult Blood-Urine 10 /ul (Negative); Protein-Dipstick 15 mg/dl (Negative); Specific Gravity, Urine 1.005 (1.002-1.030); Urine Bilirubin Dipstick Negative (Negative); Urine Clarity Clear (Clear); Urine Urobilinogen Normal (Normal)
[2023-04-24] MEDS: 0.9% Normal Saline (1000mL) 1,000 ML 125 ML IV ×3 (00:34→22:44)
[2023-04-24] MEDS: HYDROmorphone 0.5 MG/0.5 ML SYRINGE IV ×4 (04:09→20:17)
[2023-04-24] MEDS: metroNIDAZOLE 500 MG/100 ML BAG 100 MG IV ×3 (05:06→21:31)
[2023-04-24 06:46] LABS: Absolute Lymphocyte Count 1.47 X10^3/uL (0.83-4.51); Absolute Neutrophil Count 8.1 X10^3/uL (2.0-7.7); Basophil# 0.03 X10^3/uL; Basophil% 0.3 % (0-1); Eosinophils% 1.9 % (0-5); Hematocrit 32.3 % (37-47); Hemoglobin 10.6 g/dL (12.0-15.0); Lymphocyte # 1.47 X10^3/ul (0.83-4.51); Lymphocyte % 13.6 % (19-41); Mean Corp Hgb Conc 32.8 g/dL (32-36); Mean Corpuscular Hgb 29.4 pg (27.0-32.0); Mean Corpuscular Volume 89.7 fL (81-99); Mean Platelet Vol. 10.1 fl (6.2-12.0); Monocyte% 9.3 % (0-10); NRBC Flagged by Analyzer 0 % (0-5); Neutrophil # 8.05 X10^3/uL (2.7-7.7); Neutrophil % 74.4 % (47-70); Platelet Count 349 K/mm3 (150-450); RBC Distribution Width CV 12.1 % (11.6-14.6); RBC Distribution Width SD 39.6 fl (35.1-43.9); White Blood Count 10.8 K/mm3 (4.4-11.0)
[2023-04-24 07:36] LABS: Anion Gap 5 (5-15); BUN 13 mg/dL (7-18); BUN/Creat Ratio 24.2 RATIO (10-20); Chloride 109 mmol/L (98-107); Creatinine, Serum 0.54 mg/dL (0.55-1.02); EST Glomerular Filtration Rate 126 mL/min (>60); Est Glom Filt Rate - Afr Amer 153 mL/min (>60); Estimated Creatinine Clearance 121.54 ml/min; Glucose 102 mg/dL (74-106); Magnesium 2.1 mg/dL (1.6-2.6); Phosphorus 2.4 mg/dL (2.5-4.9); Potassium 3.2 mmol/L (3.5-5.1); Sodium Level 139 mmol/L (136-145)
[2023-04-24] MEDS: 0.9% Saline Lock 10 ML Syringe IV ×3 (08:15→13:13)
[2023-04-24] MEDS: 0.9% Normal Saline (250mL Bag) 250 ML 15 ML IV (09:51)
[2023-04-24] MEDS: Midazolam 2 MG/2 ML Syringe IV ×2 (09:51→10:16)
[2023-04-24] MEDS: fentaNYL 100 MCG/2 ML Ampul IV ×2 (09:52→10:16)
--- NOTE | 2023-04-24 09:55 | CT_ITS ---
PROCEDURE: CT DIRECTED ABSCESS DRAINAGE, PERITONEAL DATE OF EXAMINATION: April 24, 2023. INDICATION: Female, 53 years old. Pelvic abscess secondary to acute sigmoid diverticulitis. PHYSICIAN: Sivakumar Avendano M.D. CONSENT: Written informed consent was obtained having explained the risks, benefits and alternatives in detail with the patient who accepted the risks and agreed to proceed. Laboratory review and clinical assessment was performed. CONSCIOUS SEDATION PROTOCOL: The Drugs used were: 4 mm Versed, IV., and 100 mcg Fentanyl, IV. The sedation time was: Conscious sedation was started at 9:51 AM and terminated at 10:51 AM. The conscious sedation protocol was independently monitored. RADIATION DOSAGE (If Supplied By Facility): CTDIvol = ( 21 ) mGy, DLP = ( 4018.76 ) mGycm TECHNIQUE: CT sections were made through the abdomen and pelvis revealing an abscess in the left side of the pelvis.. The skin surface was prepped and draped in a sterile fashion. Puncture of this collection was performed initially with a 5 Spanish catheter and fluid was aspirated. Drainage catheter was then inserted into the collection and formed into position. Additional fluid was aspirated for a total of approximately 15 cc of cloudy red fluid. The catheter was sutured into position to allow for continued drainage. Followup CT sections reveals good position of the catheter. CT/Abscess/Fistula/Sinus Tract IMPRESSION: 1. CT directed drainage of a fluid collection using CT image guidance and image documentation as described. 2. Conscious Sedation protocol utilized with independent monitoring Electronically Signed: Sivakumar Avendano MD at 11:23 EDT ,
[2023-04-24] MEDS: Lidocaine 2% (20 ml mdv) 20 ML Vial INFILT (10:01)
--- NOTE | 2023-04-24 10:57 | PCM.PN.SRG ---
Subjective Subjective Patient evaluated resting comfortably in bed this morning. She notes abdominal pain is improving. She denies nausea, vomiting, fever. She denies passing flatus and having a bowel movement. Objective Data Objective Data Vital Signs: Vital Signs Temp Pulse Resp BP Pulse Ox O2 Del Method O2 Flow Rate 98.4 F 74 13 121/72 H 96 Room Air 3 04/24/23 09:37 04/24/23 09:58 04/24/23 09:58 04/24/23 09:58 04/24/23 09:37 04/24/23 09:58 04/24/23 09:58 Oxygen Flow Rate (L/min) [13] 3 Oxygen Flow Rate (L/min) [12] 3 Oxygen Flow Rate (L/min) [11] 3 Oxygen Flow Rate (L/min) [10] 3 Oxygen Flow Rate (L/min) [9] 3 Oxygen Flow Rate (L/min) [8] 3 Oxygen Flow Rate (L/min) [7] 3 Oxygen Flow Rate (L/min) [6] 3 Oxygen Flow Rate (L/min) [5] 3 Oxygen Flow Rate (L/min) [4] 3 Oxygen Flow Rate (L/min) [3] 3 Oxygen Delivery Method [13] Nasal Cannula Oxygen Delivery Method [12] Nasal Cannula Oxygen Delivery Method [11] Nasal Cannula Oxygen Delivery Method [10] Nasal Cannula Oxygen Delivery Method [9] Nasal Cannula Oxygen Delivery Method [8] Nasal Cannula Oxygen Delivery Method [7] Nasal Cannula Oxygen Delivery Method [6] Nasal Cannula Oxygen Delivery Method [5] Nasal Cannula Oxygen Delivery Method [4] Nasal Cannula Oxygen Delivery Method [3] Nasal Cannula Oxygen Delivery Method [2] Room Air Oxygen Delivery Method [1 ( Room Air Initial Baseline)] Oxygen Delivery Method Room Air Weight: 190 lb 14.725 oz Body Mass Index (BMI) 29.0 Intake & Output: Intake and Output for Last 24 Hours 04/22/23 04/23/23 04/24/23 23:59 23:59 23:59 Intake Total 1200 / 1200 200 / 200 Balance 1200 / 1200 200 / 200 Lab / Micro Data 04/24/23 06:25 04/24/23 06:25 Labs: Laboratory Results - last 24 hr 04/23/23 19:30: WBC 10.6, RBC 3.95 L, Hgb 11.6 L, Hct 35.7 L, MCV 90.4, MCH 29.4, MCHC 32.5, RDW Std Deviation 39.5, RDW Coeff of Jyothi 11.9, Plt Count 394, MPV 10.2, Immature Gran % (Auto) 0.300, Neut % (Auto) 71.5 H, Lymph % (Auto) 15.9 L, [place] % (Auto) 9.5, Eos % (Auto) 2.5, Baso % (Auto) 0.3, Absolute Neuts (auto) 7.6, Absolute Lymphs (auto) 1.69, Nucleated RBC % 0, Sodium 138, Potassium 3.8, Chloride 105, Carbon Dioxide 30.0, Anion Gap 3 L, BUN 16, Creatinine 0.67, Estim Creat Clear Calc 97.96, Est GFR (MDRD) Af Amer 118, Est GFR (MDRD) Non-Af 98, BUN/Creatinine Ratio 23.8 H, Glucose 101, Calcium 8.7, Total Bilirubin 0.50, AST 14 L, ALT 23, Alkaline Phosphatase 59, Total Protein 7.1, Albumin 3.3, Globulin 3.8, Albumin/Globulin Ratio 0.9, Lipase 20 04/23/23 23:50: Urine Color Yellow, Urine Clarity Clear, Urine pH 7.0, Ur Specific [place] 1.005, Urine Protein 15 H, Urine Glucose (UA) Normal, Urine Ketones Negative, Urine Occult Blood 10 H, Urine Nitrite Negative, Urine Bilirubin Negative, Urine Urobilinogen Normal, Ur Leukocyte Esterase Negative, Urine RBC 0 SEEN, Urine WBC 0 SEEN, Ur Squamous Epith Cells 0 SEEN, Urine Bacteria 0 SEEN, Urine Mucus 0 SEEN 04/24/23 06:25: WBC 10.8, RBC 3.60 L, Hgb 10.6 L, Hct 32.3 L, MCV 89.7, MCH 29.4, MCHC 32.8, RDW Std Deviation 39.6, RDW Coeff of Jyothi 12.1, Plt Count 349, MPV 10.1, Immature Gran % (Auto) 0.500, Neut % (Auto) 74.4 H, Lymph % (Auto) 13.6 L, [place] % (Auto) 9.3, Eos % (Auto) 1.9, Baso % (Auto) 0.3, Absolute Neuts (auto) 8.1 H, Absolute Lymphs (auto) 1.47, Nucleated RBC % 0, Sodium 139, Potassium 3.2 L, Chloride 109 H, Carbon Dioxide 25.0, Anion Gap 5, BUN 13, Creatinine 0.54 L, Estim Creat Clear Calc 121.54, Est GFR (MDRD) Af Amer 153, Est GFR (MDRD) Non-Af 126, BUN/Creatinine Ratio 24.2 H, Glucose 102, Calcium 8.0 L, Phosphorus 2.4 L, Magnesium 2.1 Radiography Diagnostic Testing: Radiology Impression Abdomen/Pelvis CT 04/23/23 20:15 IMPRESSION: Acute sigmoid diverticulitis and probable abscess as above. No free air. Electronically Signed: Sonido Cazares MD at 21:21 EDT Reading Location ID and State: [address] [place] [address] Tel , Service support , ADDENDUM: 04/23/232146 IMPRESSION: Acute sigmoid diverticulitis and probable abscess as above. No free air. N.B. : The above Results were Read Back by Sonido Cazares MD to Jass Valderrama MD, and understanding confirmed on 04/23/2023 21:40:43 (ET). Electronically Signed: Sonido Cazares MD at 21:21 EDT Reading Location ID and State: [address] [place] [address] Tel , Service support , Physical Exam Const alert, oriented x3 and no apparent distress GI GI Narrative: Abdomen- tender in the right lower quadrant Assessment & Plan Assessment/Plan (1) Colonic diverticular abscess: PLAN: I have evaluated this patient in conjunction with Dr. Roberts Plan for CT-guided abscess drainage with drain placement today No surgical intervention is being recommended at this time Patient is aware that if her status changes or her symptoms were to worsen despite drain placement, she may have to proceed with surgical intervention We will continue to monitor this patient Charges/Coding Visit Charges Inpatient E&M: 54941 [facility] Hosp L1
[2023-04-24] MEDS: Ciprofloxacin 400 MG/200 ML BAG 200 MG IV ×2 (12:13→22:34)
[2023-04-24] MEDS: Ondansetron 4 MG/2 ML Vial IV ×2 (12:15→20:17)
--- NOTE | 2023-04-24 12:40 | CASEMGMT ---
RN CM Face to Face with patient for initial transition planning/care coordination assessment. RN CM introduced self and role at [facility]. Patient lying in bed, alert and oriented. Patient willing to participate in assessment and is able to answer all questions appropriately.? Care providers, pharmacy, and demographics verified. Patient wishes to discharge home, denies need for home health at this time.? Patient states she has no further needs or concerns at this time. CM to follow for discharge planning needs that may arise. PCP:Maryse Specialists:susan Cruz Preferred Pharmacy:[facility] Insurance:[place] Prescription Benefit:yes? LNOK:Yari Norwood, sister Living Arrangements:Pt lives alone in a single story home with 2 steps to enter. Pt reports she is I in ADL's and denies concerns at home. Transportation:Self, denies concerns with transportation DME/HHC/SNF:Pt denies having any DME, hx of HHC or SNF stays Disposition Plan:Home, will follow for drain at fl
[2023-04-24] MEDS: Pantoprazole Sodium 40 MG in 0.9% Normal Saline (100mL MB+) 100 ML 330 MG IV (13:13)
[2023-04-25] VITALS (7 sets, daily range): BP systolic 104–148; BP diastolic 57–77; PULSE 73–95; RESP 16; TEMP 22.7–37.8; O2SAT 93–99
[2023-04-25] MEDS: Acetaminophen 500 MG Tablet PO ×3 (02:56→21:57)
[2023-04-25] MEDS: Levothyroxine 125 MCG Tablet PO (05:23)
[2023-04-25] MEDS: metroNIDAZOLE 500 MG/100 ML BAG 100 MG IV ×2 (05:25→13:41)
[2023-04-25 06:56] LABS: Absolute Lymphocyte Count 1.05 X10^3/uL (0.83-4.51); Absolute Neutrophil Count 8.4 X10^3/uL (2.0-7.7); Basophil# 0.03 X10^3/uL; Basophil% 0.3 % (0-1); Eosinophil# 0.07 X10^3/uL; Eosinophils% 0.7 % (0-5); Hematocrit 31.7 % (37-47); Hemoglobin 10.4 g/dL (12.0-15.0); Lymphocyte # 1.05 X10^3/ul (0.83-4.51); Mean Corp Hgb Conc 32.8 g/dL (32-36); Mean Corpuscular Hgb 29.6 pg (27.0-32.0); Mean Corpuscular Volume 90.3 fL (81-99); Mean Platelet Vol. 10.1 fl (6.2-12.0); Monocyte% 8.6 % (0-10); NRBC Flagged by Analyzer 0 % (0-5); Neutrophil # 8.37 X10^3/uL (2.7-7.7); Neutrophil % 79.8 % (47-70); Platelet Count 343 K/mm3 (150-450); RBC Distribution Width SD 39.8 fl (35.1-43.9); Red Blood Count 3.51 M/mm3 (4.2-5.4); White Blood Count 10.5 K/mm3 (4.4-11.0)
[2023-04-25 07:24] LABS: Anion Gap 5 (5-15); BUN 9 mg/dL (7-18); BUN/Creat Ratio 15.6 RATIO (10-20); Calcium,Total 8.1 mg/dL (8.5-10.1); Chloride 106 mmol/L (98-107); Creatinine, Serum 0.58 mg/dL (0.55-1.02); EST Glomerular Filtration Rate 116 mL/min (>60); Est Glom Filt Rate - Afr Amer 140 mL/min (>60); Estimated Creatinine Clearance 113.16 ml/min; Glucose 94 mg/dL (74-106); Phosphorus 2.5 mg/dL (2.5-4.9); Sodium Level 137 mmol/L (136-145)
[2023-04-25] MEDS: 0.9% Normal Saline (1000mL) 1,000 ML 125 ML IV (08:02)
[2023-04-25] MEDS: Ciprofloxacin 400 MG/200 ML BAG 200 MG IV (09:29)
--- NOTE | 2023-04-25 10:03 | PN.SURG_ITS ---
Subjective Subjective Patient seen and examined during AM rounds. She notes that she is sore this morning, but overall feels better. Objective Data Objective Data Vital Signs: Vital Signs Temp Pulse Resp BP Pulse Ox O2 Del Method O2 Flow Rate 98.3 F 77 16 104/57 L 93 Room Air 3 04/25/23 08:29 04/25/23 08:29 04/25/23 08:29 04/25/23 08:29 04/25/23 09:32 04/25/23 09:32 04/24/23 09:58 Oxygen Flow Rate (L/min) [13] 3 Oxygen Flow Rate (L/min) [12] 3 Oxygen Flow Rate (L/min) [11] 3 Oxygen Flow Rate (L/min) [10] 3 Oxygen Flow Rate (L/min) [9] 3 Oxygen Flow Rate (L/min) [8] 3 Oxygen Flow Rate (L/min) [7] 3 Oxygen Flow Rate (L/min) [6] 3 Oxygen Flow Rate (L/min) [5] 3 Oxygen Flow Rate (L/min) [4] 3 Oxygen Flow Rate (L/min) [3] 3 Oxygen Delivery Method [13] Nasal Cannula Oxygen Delivery Method [12] Nasal Cannula Oxygen Delivery Method [11] Nasal Cannula Oxygen Delivery Method [10] Nasal Cannula Oxygen Delivery Method [9] Nasal Cannula Oxygen Delivery Method [8] Nasal Cannula Oxygen Delivery Method [7] Nasal Cannula Oxygen Delivery Method [6] Nasal Cannula Oxygen Delivery Method [5] Nasal Cannula Oxygen Delivery Method [4] Nasal Cannula Oxygen Delivery Method [3] Nasal Cannula Oxygen Delivery Method [2] Room Air Oxygen Delivery Method [1 ( Room Air Initial Baseline)] Oxygen Delivery Method Room Air Weight: 190 lb 14.725 oz Body Mass Index (BMI) 29.0 Intake & Output: Intake and Output for Last 24 Hours 04/23/23 04/24/23 04/25/23 23:59 23:59 23:59 Intake Total 1200 / 1200 2645.50 / 2645.50 1293.75 / 1293.75 Output Total 30 / 30 Balance 1200 / 1200 2615.50 / 2615.50 1293.75 / 1293.75 Lab / Micro Data 04/25/23 06:25 04/25/23 06:25 Labs: Laboratory Results - last 24 hr 04/25/23 06:25: WBC 10.5, RBC 3.51 L, Hgb 10.4 L, Hct 31.7 L, MCV 90.3, MCH 29.6, MCHC 32.8, RDW Std Deviation 39.8, RDW Coeff of Jyothi 12.0, Plt Count 343, MPV 10.1, Immature Gran % (Auto) 0.600, Neut % (Auto) 79.8 H, Lymph % (Auto) 10.0 L, [place] % (Auto) 8.6, Eos % (Auto) 0.7, Baso % (Auto) 0.3, Absolute Neuts (auto) 8.4 H, Absolute Lymphs (auto) 1.05, Nucleated RBC % 0, Sodium 137, Potassium 3.0 L, Chloride 106, Carbon Dioxide 26.0, Anion Gap 5, BUN 9, Creatinine 0.58, Estim Creat Clear Calc 113.16, Est GFR (MDRD) Af Amer 140, Est GFR (MDRD) Non-Af 116, BUN/Creatinine Ratio 15.6, Glucose 94, Calcium 8.1 L, Phosphorus 2.5, Magnesium 2.0 Radiography Diagnostic Testing: Radiology Impression Abdomen/Pelvis CT 04/23/23 20:15 IMPRESSION: Acute sigmoid diverticulitis and probable abscess as above. No free air. N.B. : The above Results were Read Back by Sonido Cazares MD to Jass Valderrama MD, and understanding confirmed on 04/23/2023 21:40:43 (ET). Electronically Signed: Sonido Cazares MD at 21:21 EDT Reading Location ID and State: [facility] / [place] Tel , Service support , Abscess Drainage 04/24/23 09:55 IMPRESSION: 1. CT directed drainage of a fluid collection using CT image guidance and image documentation as described. 2. Conscious Sedation protocol utilized with independent monitoring Electronically Signed: Sivakumar Avendano MD at 11:23 EDT , Physical Exam Const oriented x3 and no apparent distress Resp normal respiratory effort GI GI Narrative: Nondistended, soft, decreased abdominal tenderness overall, but there is some slight?specific soreness around her new suprapubic drain. This drain is now draining thick milky purulence. Assessment & Plan Assessment/Plan (1) Colonic diverticular abscess: PLAN: Patient is hospital day 3 for admission for complicated diverticulitis. Y esterday she underwent successful CT guided percutaneous drainage of her peritoneal abscess. Cultures are currently pending from that procedure. There is scant purulent drainage ongoing through the drain and most of it is presently lodged in her drain tubing. I will look to connect to a three-way stopcock to improve ongoing drainage. At this point, given patient's exam improvements I would like to start a diet. If she tolerates this diet advancement I will transition her to oral antibiotics later today. She does confirm for me that, although she has a noted allergy to Rocephin, she has previously tolerated penicillins so I would empirically plan for Augmentin while following up her funmilayo in cultures to tailor to the sensitivities. ? Full liquid diet ? Decrease IV fluid support ? Add three-way stopcock and flush the distal segment of patient's peritoneal drain Charges/Coding Visit Charges Inpatient E&M: 25800 Subs Hosp L2
[2023-04-25] MEDS: HYDROmorphone 0.5 MG/0.5 ML SYRINGE IV ×2 (10:38→21:47)
[2023-04-25] MEDS: Pantoprazole Sodium 40 MG in 0.9% Normal Saline (100mL MB+) 100 ML 330 MG IV (10:42)
--- NOTE | 2023-04-25 11:57 | CASEMGMT ---
Gave update to pt case management assistant at /[facility]
[2023-04-25] MEDS: Amox/Clavulanate 875 MG Tablet PO (21:57)
[2023-04-25] MEDS: Ondansetron 4 MG/2 ML Vial IV (21:58)
[2023-04-26 03:13] VITALS: BP 101/57; PULSE 75; RESP 18; TEMP 36.9; O2SAT 98
[2023-04-26] MEDS: Acetaminophen 500 MG Tablet PO ×2 (05:38→22:12)
[2023-04-26] MEDS: Levothyroxine 125 MCG Tablet PO (05:39)
[2023-04-26] MEDS: HYDROmorphone 0.5 MG/0.5 ML SYRINGE IV (05:39)
[2023-04-26 05:44] VITALS: BP 113/64
[2023-04-26 06:28] LABS: Absolute Lymphocyte Count 0.94 X10^3/uL (0.83-4.51); Basophil# 0.03 X10^3/uL; Basophil% 0.3 % (0-1); Eosinophil# 0.14 X10^3/uL; Eosinophils% 1.4 % (0-5); Hematocrit 30.8 % (37-47); Hemoglobin 10.1 g/dL (12.0-15.0); Lymphocyte # 0.94 X10^3/ul (0.83-4.51); Lymphocyte % 9.3 % (19-41); Mean Corp Hgb Conc 32.8 g/dL (32-36); Mean Corpuscular Hgb 29.3 pg (27.0-32.0); Mean Corpuscular Volume 89.3 fL (81-99); Mean Platelet Vol. 10.2 fl (6.2-12.0); Monocyte# 0.91 X10^3/uL; NRBC Flagged by Analyzer 0 % (0-5); Neutrophil # 7.99 X10^3/uL (2.7-7.7); Neutrophil % 79.3 % (47-70); Platelet Count 358 K/mm3 (150-450); RBC Distribution Width SD 39.2 fl (35.1-43.9); Red Blood Count 3.45 M/mm3 (4.2-5.4); White Blood Count 10.1 K/mm3 (4.4-11.0)
[2023-04-26 06:57] LABS: Anion Gap 5 (5-15); BUN 6 mg/dL (7-18); BUN/Creat Ratio 12.2 RATIO (10-20); Calcium,Total 8.2 mg/dL (8.5-10.1); Chloride 106 mmol/L (98-107); Creatinine, Serum 0.49 mg/dL (0.55-1.02); EST Glomerular Filtration Rate 140 mL/min (>60); Est Glom Filt Rate - Afr Amer 169 mL/min (>60); Estimated Creatinine Clearance 133.94 ml/min; Glucose 122 mg/dL (74-106); Potassium 3.2 mmol/L (3.5-5.1); Sodium Level 138 mmol/L (136-145)
--- NOTE | 2023-04-26 09:01 | PN.SURG_ITS ---
Subjective Subjective Patient seen and examined during AM rounds. She is found sitting up in bed and eating breakfast. She states that she has not had much off of her plate but that she still becomes full quickly. She reports that overnight she was told she had a low-grade fever and mildly low blood pressure. She does not admit that she feels better today. She continues to deny a bowel movement since 04/17/2023 and relates that prior to this issue she was experiencing bowel movements once daily. Objective Data Objective Data Vital Signs: Vital Signs Temp Pulse Resp BP Pulse Ox O2 Del Method O2 Flow Rate 98.5 F 75 18 113/64 98 Room Air 3 04/26/23 03:13 04/26/23 03:13 04/26/23 03:13 04/26/23 05:44 04/26/23 03:13 04/26/23 03:13 04/24/23 09:58 Oxygen Flow Rate (L/min) [13] 3 Oxygen Flow Rate (L/min) [12] 3 Oxygen Flow Rate (L/min) [11] 3 Oxygen Flow Rate (L/min) [10] 3 Oxygen Flow Rate (L/min) [9] 3 Oxygen Flow Rate (L/min) [8] 3 Oxygen Flow Rate (L/min) [7] 3 Oxygen Flow Rate (L/min) [6] 3 Oxygen Flow Rate (L/min) [5] 3 Oxygen Flow Rate (L/min) [4] 3 Oxygen Flow Rate (L/min) [3] 3 Oxygen Delivery Method [13] Nasal Cannula Oxygen Delivery Method [12] Nasal Cannula Oxygen Delivery Method [11] Nasal Cannula Oxygen Delivery Method [10] Nasal Cannula Oxygen Delivery Method [9] Nasal Cannula Oxygen Delivery Method [8] Nasal Cannula Oxygen Delivery Method [7] Nasal Cannula Oxygen Delivery Method [6] Nasal Cannula Oxygen Delivery Method [5] Nasal Cannula Oxygen Delivery Method [4] Nasal Cannula Oxygen Delivery Method [3] Nasal Cannula Oxygen Delivery Method [2] Room Air Oxygen Delivery Method [1 ( Room Air Initial Baseline)] Oxygen Delivery Method Room Air Weight: 190 lb 14.725 oz Body Mass Index (BMI) 29.0 Intake & Output: Intake and Output for Last 24 Hours 04/24/23 04/25/23 04/26/23 23:59 23:59 23:59 Intake Total 2645.50 / 2645.50 3365.00 / 3365.00 250 / 250 Output Total 5 / 5 Balance 2615.50 / 2615.50 3360.00 / 3360.00 250 / 250 Lab / Micro Data 04/26/23 05:55 04/26/23 05:55 Labs: Laboratory Results - last 24 hr 04/26/23 05:55: WBC 10.1, RBC 3.45 L, Hgb 10.1 L, Hct 30.8 L, MCV 89.3, MCH 29.3, MCHC 32.8, RDW Std Deviation 39.2, RDW Coeff of Jyothi 12.0, Plt Count 358, MPV 10.2, Immature Gran % (Auto) 0.700, Neut % (Auto) 79.3 H, Lymph % (Auto) 9.3 L, [place] % (Auto) 9.0, Eos % (Auto) 1.4, Baso % (Auto) 0.3, Absolute Neuts (auto) 8.0 H, Absolute Lymphs (auto) 0.94, Nucleated RBC % 0, Sodium 138, Potassium 3.2 L, Chloride 106, Carbon Dioxide 27.0, Anion Gap 5, BUN 6 L, Creatinine 0.49 L, Estim Creat Clear Calc 133.94, Est GFR (MDRD) Af Amer 169, Est GFR (MDRD) Non-Af 140, BUN/Creatinine Ratio 12.2, Glucose 122 H, Calcium 8.2 L Micro: Microbiology 04/24/23 11:08 Wound Abcess - Abdominal Gram Stain - Final 04/24/23 11:08 Wound Abcess - Abdominal Wound Culture - Final Citrobacter freundii Streptococcus group F Physical Exam Const oriented x3 and no apparent distress Resp normal respiratory effort GI GI Narrative: Nondistended, soft, largely nontender to palpation aside from directly about drain site. Drain with scant thick purulent substance in the drain tubing Assessment & Plan Assessment/Plan (1) Colonic diverticular abscess: PLAN: Patient is hospital day 4 for admission for complicated diverticulitis. She is now status post successful CT guided percutaneous drainage of her peritoneal abscess. Cultures are currently showing Citrobacter and Streptococcus sensitive to penicillin. Patient tolerated advancement to regular diet yesterday but is without bowel movement since 04/17/2023. Given the significant constipation and patient's primary complaint I do want her to have a bowel movement before discharge so we will order a suppository this morning. If patient continues clinical improvement is able to have a bowel movement will anticipate discharge later today. Drain teaching was provided to patient as she is expected to leave with the percutaneous drain and make short-term follow-up in our outpatient clinic. ? Continue regular ? Continue Augmentin ? Replace potassium orally today ? Dulcolax suppository and follow for bowel movement ? DC to home tentatively anticipated for this afternoon pending reevaluation Charges/Coding Visit Charges Inpatient E&M: 42919 Subs Hosp L2
[2023-04-26 10:38] VITALS: BP 123/77; PULSE 74; RESP 16; TEMP 36.6; O2SAT 99
[2023-04-26] MEDS: Potassium Chloride Oral Tablet 20 MEQ 40 MEQ PO (10:41)
[2023-04-26] MEDS: Bisacodyl 10 MG Suppository RC (10:41)
[2023-04-26] MEDS: Amox/Clavulanate 875 MG Tablet PO ×2 (10:41→22:04)
[2023-04-26] MEDS: Pantoprazole Sodium 40 MG in 0.9% Normal Saline (100mL MB+) 100 ML 330 MG IV (11:00)
--- NOTE | 2023-04-26 15:25 | CASEMGMT ---
RN CM into pt room, pt states she feels comfortable dc'ing with drain. She denies any homegoing needs.
--- NOTE | 2023-04-26 16:28 | DS.PCM_ITS ---
Providers Date of Admission: 04/23/23 Primary Care Physician: Dr. Dinora Serra, DO Reason For Visit: ACUTE DIVERTICULITIS WITH HER ABDOMINAL ABSCESS Diagnosis Discharge Diagnosis (1) Colonic diverticular abscess: Status: Acute Code(s): K57.20 - Diverticulitis of large intestine with perforation and abscess without bleeding Plan: Patient is hospital day 4 for admission for complicated diverticulitis. She is now status post successful CT guided percutaneous drainage of her peritoneal abscess. Cultures are currently showing Citrobacter and Streptococcus sensitive to penicillin. Patient tolerated advancement to regular diet yesterday but is without bowel movement since 04/17/2023. Given the significant constipation and patient's primary complaint I do want her to have a bowel movement before discha rge so we will order a suppository this morning. If patient continues clinical improvement is able to have a bowel movement will anticipate discharge later today. Drain teaching was provided to patient as she is expected to leave with the percutaneous drain and make short-term follow-up in our outpatient clinic. ? Continue regular ? Continue Augmentin ? Replace potassium orally today ? Dulcolax suppository and follow for bowel movement ? DC to home tentatively anticipated for this afternoon pending reevaluation Medications at Discharge Home Medications levothyroxine 112 mcg tablet 125 mcg PO DAILY 06/25/13 omeprazole 20 mg capsule,delayed release 20 mg PO PRN PRN Indigestion 11/27/17 ibuprofen 600 mg tablet 600 mg PO Q6H PRN PRN Mild-Mod Pain (1-5/10) #30 tabs 12/04/17 liothyronine 5 mcg tablet 5 mcg PO DAILY 04/23/23 tofacitinib 11 mg tablet,extended release 24 hr (Xeljanz XR) 11 mg PO Q24H 04/23/23 amoxicillin 875 mg-potassium clavulanate 125 mg tablet 1 tab PO BID 10 days #20 tabs 04/27/23 ciprofloxacin HCl 500 mg tablet 500 mg PO BID 10 days #20 tabs 04/27/23 tramadol 50 mg tablet 50 mg PO Q6H PRN PRN Pain Score 4-10 5 days #10 tabs 04/27/23 Hospital Course Operations None Procedures - (CT-guided percutaneous drain placement 04/24/2023) Summary of Care Provided Hospital Course: Patient is a 53-year-old female who presented on 04/23/2023 with signs and symptoms of complicated diverticulitis including a pericolonic abscess just above the bladder dome measuring up to 4 cm in greatest dimension. Therefore, hospital day [address]-guided percutaneous drainage of this abscess. Output was reported as scant but thick and purulent. Cultures on the abscess fluid ultimately grew Citrobacter and group F Streptococcus. Therefore patient's antibiotics that have been empirically placed were tailored to these cultures with Augmentin and oral ciprofloxacin. Patient was prepared for discharge on hospital day 4 and had confirmed a bowel movement, but on re evaluation just prior to discharge she complained of more abdominal and pelvic discomfort. Therefore her discharge was held and she was administered 1 dose of Toradol 30 mg. Patient reported significant relief with this medication and by the morning of hospital day 5 she was clinically improved aside from reports of some new hematuria. I suspected this was secondary to trauma from her nearby pe rcutaneous drain, but in order to investigate this more objectively I obtained a CT scan of the abdomen pelvis and injected 3 mL of dilute Isovue via her drain to assess for any possible communication to the bladder as well as reevaluate the size of her abscess cavity. This study showed that there was no communication with the bladder and, in fact, patient's drain had become displaced from the abscess cavity and was now lodged in the left rectus muscle. Further, radiology identified that the abscess had decreased significantly in size so the drain was removed at bedside. Patient reported further improvements in her discomfort and after discussing ongoing observation of her urinary status (first finding her urinalysis only to be remarkable for some occult blood and leukocyte esterase), discharge was granted. Patient is aware of an expectation for outpatient follow-up to ensure further improvements in her abdominal discomfort and we also clarified that she is expected to take antibiotics for the next 10 days during which she will make this follow-up appointment. Weight / BMI Weight Weight: 190 lb 14.725 oz Body Mass Index (BMI) 29.0 ABG / Lab / Microbiology Data 04/27/23 06:31 04/26/23 05:55 Laboratory: Laboratory Results - last 24 hr 04/26/23 05:55: WBC 10.1, RBC 3.45 L, Hgb 10.1 L, Hct 30.8 L, MCV 89.3, MCH 29.3, MCHC 32.8, RDW Std Deviation 39.2, RDW Coeff of Jyothi 12.0, Plt Count 358, MPV 10.2, Immature Gran % (Auto) 0.700, Neut % (Auto) 79.3 H, Lymph % (Auto) 9.3 L, [place] % (Auto) 9.0, Eos % (Auto) 1.4, Baso % (Auto) 0.3, Absolute Neuts (auto) 8.0 H, Absolute Lymphs (auto) 0.94, Nucleated RBC % 0, Sodium 138, Potassium 3.2 L, Chloride 106, Carbon Dioxide 27.0, Anion Gap 5, BUN 6 L, Creatinine 0.49 L, Estim Creat Clear Calc 133.94, Est GFR (MDRD) Af Amer 169, Est GFR (MDRD) Non-Af 140, BUN/Creatinine Ratio 12.2, Glucose 122 H, Calcium 8.2 L Microbiology: Microbiology 04/24/23 11:08 Wound Abcess - Abdominal Gram Stain - Final 04/24/23 11:08 Wound Abcess - Abdominal Wound Culture - Final Citrobacter freundii Streptococcus group F 04/24/23 11:08 Wound Abcess - Abdominal Anaerobic Culture - Preliminary Meaningful Use Info Meaningful Use Diagnoses (Choose all that apply): None applicable Discharge Plan Admission Admit Date/Time: 04/23/23 22:41 Primary Reason for Your Visit: Perforated diverticulitis Attending Provider: Noel Roberts Primary Care Provider: Dinora Serra Instructions Patient Instructions: HERMINIA RN Abscess Drainage, HERMINIA RN Procedural Sedation Discharge Orders/Prescriptions Prescriptions: New ciprofloxacin HCl 500 mg Tablet 500 mg PO BID 10 Days Qty: 20 0RF tramadol 50 mg Tablet 50 mg PO Q6H PRN PRN (Reason: Pain Score 4-10) 5 Days Qty: 10 0RF amoxicillin-pot clavulanate 875-125 mg Tablet 1 tab PO BID 10 Days Qty: 20 0RF Continued levothyroxine 112 MCG tablet 125 mcg PO DAILY omeprazole 20 MG capsule,delayed release(DR/EC) 20 mg PO PRN PRN (Reason: Indigestion) ibuprofen 600 MG tablet 600 mg PO Q6H PRN PRN (Reason: Mild-Mod Pain (1-5/10)) Qty: 30 0RF Xeljanz XR 11 mg tablet extended release 24 hr 11 mg PO Q24H liothyronine 5 mcg tablet 5 mcg PO DAILY Patient Comments: TAKE 1 TABLET BY MOUTH DAILY take with levothoroxine Referrals / Follow Up: Dinora Serra DO [Primary Care Provider] - Disposition Disposition (needs filled in before D/C Order can be placed): Home, Self Care
[2023-04-26 16:39] VITALS: BP 132/86; PULSE 82; RESP 16; TEMP 36.9; O2SAT 97
[2023-04-26] MEDS: traMADol 50 MG Tablet PO (17:30)
[2023-04-26 22:01] VITALS: BP 129/72; PULSE 79; RESP 18; TEMP 37.2; O2SAT 97
[2023-04-26] MEDS: Ciprofloxacin 500 MG Tablet PO (22:04)
[2023-04-26] MEDS: 0.9% Saline Lock 10 ML Syringe IV (22:05)
[2023-04-26] MEDS: Ketorolac 30 MG/ML Syringe IV (22:05)
[2023-04-27 03:22] VITALS: BP 108/50; PULSE 61; RESP 18; TEMP 36.5; O2SAT 98
[2023-04-27] MEDS: Acetaminophen 500 MG Tablet PO (07:00)
[2023-04-27] MEDS: Levothyroxine 125 MCG Tablet PO (07:00)
[2023-04-27 07:09] LABS: Absolute Lymphocyte Count 0.96 X10^3/uL (0.83-4.51); Absolute Neutrophil Count 7.1 X10^3/uL (2.0-7.7); Basophil# 0.04 X10^3/uL; Basophil% 0.4 % (0-1); Eosinophil# 0.28 X10^3/uL; Hematocrit 32.3 % (37-47); Hemoglobin 10.7 g/dL (12.0-15.0); Lymphocyte # 0.96 X10^3/ul (0.83-4.51); Lymphocyte % 10.3 % (19-41); Mean Corp Hgb Conc 33.1 g/dL (32-36); Mean Corpuscular Hgb 30.1 pg (27.0-32.0); Mean Corpuscular Volume 90.7 fL (81-99); Mean Platelet Vol. 10.2 fl (6.2-12.0); Monocyte# 0.91 X10^3/uL; Monocyte% 9.7 % (0-10); NRBC Flagged by Analyzer 0 % (0-5); Neutrophil # 7.09 X10^3/uL (2.7-7.7); Platelet Count 369 K/mm3 (150-450); RBC Distribution Width SD 40.4 fl (35.1-43.9); Red Blood Count 3.56 M/mm3 (4.2-5.4); White Blood Count 9.3 K/mm3 (4.4-11.0)
--- NOTE | 2023-04-27 09:13 | PCM.PN.SRG ---
Subjective Subjective Patient seen and examined during AM rounds. She reported significant relief with the Toradol that was dosed overnight for uncontrolled discomfort. She also reports more restful sleep because of this improved pain control. However, she did complain to nursing upon visiting the restroom this morning that she has passed some clots with her urine. She states she initially was concerned that this was her soiling herself but then realized that it was blood. Objective Data Objective Data Vital Signs: Vital Signs Temp Pulse Resp BP Pulse Ox O2 Del Method O2 Flow Rate 97.7 F L 61 18 108/50 L 98 Room Air 3 04/27/23 03:22 04/27/23 03:22 04/27/23 03:22 04/27/23 03:04/27/23 03:04/27/23 03:04/24/23 09:58 Oxygen Flow Rate (L/min) [13] 3 Oxygen Flow Rate (L/min) [12] 3 Oxygen Flow Rate (L/min) [11] 3 Oxygen Flow Rate (L/min) [10] 3 Oxygen Flow Rate (L/min) [9] 3 Oxygen Flow Rate (L/min) [8] 3 Oxygen Flow Rate (L/min) [7] 3 Oxygen Flow Rate (L/min) [6] 3 Oxygen Flow Rate (L/min) [5] 3 Oxygen Flow Rate (L/min) [4] 3 Oxygen Flow Rate (L/min) [3] 3 Oxygen Delivery Method [13] Nasal Cannula Oxygen Delivery Method [12] Nasal Cannula Oxygen Delivery Method [11] Nasal Cannula Oxygen Delivery Method [10] Nasal Cannula Oxygen Delivery Method [9] Nasal Cannula Oxygen Delivery Method [8] Nasal Cannula Oxygen Delivery Method [7] Nasal Cannula Oxygen Delivery Method [6] Nasal Cannula Oxygen Delivery Method [5] Nasal Cannula Oxygen Delivery Method [4] Nasal Cannula Oxygen Delivery Method [3] Nasal Cannula Oxygen Delivery Method [2] Room Air Oxygen Delivery Method [1 ( Room Air Initial Baseline)] Oxygen Delivery Method Room Air Weight: 190 lb 14.725 oz Body Mass Index (BMI) 29.0 Intake & Output: Intake and Output for Last 24 Hours 04/25/23 04/26/23 04/27/23 23:59 23:59 23:59 Intake Total 3365.00 / 3365.00 360 / 360 Output Total 5 / 5 5 / 5 Balance 3360.00 / 3360.00 360 / 355 -5 / -5 Lab / Micro Data 04/27/23 06:31 04/26/23 05:55 Labs: Laboratory Results - last 24 hr 04/27/23 06:31: WBC 9.3, RBC 3.56 L, Hgb 10.7 L, Hct 32.3 L, MCV 90.7, MCH 30.1, MCHC 33.1, RDW Std Deviation 40.4, RDW Coeff of Jyothi 12.0, Plt Count 369, MPV 10.2, Immature Gran % (Auto) 0.600, Neut % (Auto) 76.0 H, Lymph % (Auto) 10.3 L, Nash % (Auto) 9.7, Eos % (Auto) 3.0, Baso % (Auto) 0.4, Absolute Neuts (auto) 7.1, Absolute Lymphs (auto) 0.96, Nucleated RBC % 0 Micro: Microbiology 04/24/23 11:08 Wound Abcess - Abdominal Gram Stain - Final 04/24/23 11:08 Wound Abcess - Abdominal Wound Culture - Final Citrobacter freundii Streptococcus group F 04/24/23 11:08 Wound Abcess - Abdominal Anaerobic Culture - Preliminary Physical Exam Const oriented x3 and no apparent distress Resp normal respiratory effort GI GI Narrative: Nondistended soft, minimally tender to palpation about patient's drain site which has scant output. Narrative: Patient with fine blood clots in urine collection pale Assessment & Plan Assessment/Plan (1) Colonic diverticular abscess: PLAN: Patient is hospital day 5 for admission for complicated diverticulitis. She is now status post successful CT guided percutaneous drainage of her peritoneal abscess. Cultures are currently showing Citrobacter and Streptococcus sensitive to penicillin. Actually in conversation with pharmacy there was concern about Augmentin fully covering the Streptococcus so p.o. ciprofloxacin was re-added. Patient had significant relief with a single dose of Toradol yesterday and better tolerated her regular diet. Because of the reports of hematuria, I opted to proceed with a repeat CT scan and injection of contrast via her percutaneous drain. This was performed by me during the imaging acquisition and I observed that the drain had become displaced from the abscess cavity and was now lodged within her left rectus muscle. Further, there is no evidence of contrast communicating with the bladder lumen. Radiology confirms this impression and I thus presented at bedside and I removed her drain. It is my belief that her bloody urine is secondary to the bladder trauma from being subjacent to the drain. Patient appears much more comfortable after the drain is discontinued and confirms that she feels ready for discharge. Discharge instructions were reviewed with patient and her family at bedside. We will plan to follow-up as an outpatient for initial insurance that her course continues to improve and then to set up a diagnostic colonoscopy. ?DC to home with 10 days of ciprofloxacin, Augmentin, and tramadol for breakthrough discomfort Charges/Coding Visit Charges Inpatient E&M: 33038 Subs Hosp L2
[2023-04-27 09:22] VITALS: BP 118/70; PULSE 60; RESP 16; TEMP 37.2; O2SAT 97
[2023-04-27] MEDS: Pantoprazole Sodium 40 MG in 0.9% Normal Saline (100mL MB+) 100 ML 330 MG IV (09:38)
[2023-04-27] MEDS: Amox/Clavulanate 875 MG Tablet PO (09:39)
[2023-04-27] MEDS: Ciprofloxacin 500 MG Tablet PO (09:39)
[2023-04-27] MEDS: 0.9% Saline Lock 10 ML Syringe IV (09:39)
--- NOTE | 2023-04-27 11:03 | CT_ITS ---
STUDY: CT ABDOMEN AND PELVIS WITH CONTRAST - URINARY TRACT REASON FOR EXAM: Female, 53 years old. F/u abscess drainage and hematuria -- to inject drain with 20cc Isoview RADIATION DOSAGE (If Supplied By Facility): CTDIvol = ( 15.75 ) mGy, DLP = ( 2435.54 ) mGycm TECHNIQUE: IV 100mL Isovue-370 was administered. Transaxial images of the pelvis were obtained without intravenous contrast administration. Subsequently images were obtained from the dome of the diaphragm to the symphysis pubis in the arterial and excretory phases. In addition, images were obtained subsequent to injection of the percutaneous drainage catheter with 20 cc of Isovue. Multiplanar coronal and sagittal images were reformatted. Individualized Dose Optimization Techniques Were Used For This CT. COMPARISON: Prior studies dated: April 23 and 2022 FINDINGS: There is minimal dependent consolidation within the lower lobes. The visualized portions of the heart are within normal limits. Normal liver. Normal gallbladder and extrahepatic biliary system. Normal spleen. Normal pancreas. Normal bilateral adrenal glands. Normal visualized stomach. Normal small intestine. There is diverticulosis, with thickening of the sigmoid colon wall, and pericolonic inflammation changes consistent with acute diverticulitis that is less pronounced than the prior examinations. Anterior to the sigmoid colon and abutting the urinary bladder left of midline there is a small fluid focus associated with punctate foci of air measuring up to 1.8 x 1.2 x 1.4 cm, significantly decreased in size since prior examination measuring 4.1 x 2.8 x 2.6 cm. There is a percutaneous pigtail catheter in place terminating within the lower left rectus abdominis. The delayed images demonstrate retained intramuscular contrast within the left rectus sheath. The appendix is visualized and appears normal. Normal abdominal aorta. No retroperitoneal adenopathy. Normal right kidney. Normal left kidney. Normal urinary bladder. Normal osseous structures. CT/Abdomen/Pelvis W IV Cont ONLY IMPRESSION: Partial resolution of sigmoid colon diverticulitis associated with a decrease in size of the adjacent abscess measuring up to 1.8 x 1.2 x 1.4 cm. Malpositioned drainage catheter terminating within the left rectus abdominis. Electronically Signed: Sarah Muhammad MD at 14:27 EDT ,
[2023-04-27 14:54] LABS: Color, Urine Yellow (Yellow); Glucose, Dipstick Normal (Normal); Ketone-Dipstick Negative (Negative); Leukocyte Esterase-Dipstick 500 /ul (Negative); Nitrite-Dipstick Negative (Negative); Occult Blood-Urine 250 /ul (Negative); Protein-Dipstick 30 mg/dl (Negative); Urine Bilirubin Dipstick Negative (Negative); Urine Clarity Sl. Cloudy (Clear); Urine Urobilinogen 8 mg/dl (Normal)
[2023-04-27 15:22] VITALS: BP 113/72; PULSE 61; RESP 18; TEMP 37.1; O2SAT 99
--- NOTE | 2023-04-27 15:25 | DCINST_ITS ---
Discharge Instructions Diet Discharge Diet: Soft diet (low fiber) Activity May shower in (days): 2 Dressing / Incision Call your doctor if your incision/area has: Increased Pain/ Swelling, Increased Redness, Foul Smelling Discharge and Swelling at the incision site Call your doctor if you observe: Fever of 101 or Higher, Inability to urinate and Uncontrolled pain Remove Dressing in: 2 days (from drain site) Cleanse incision/area with: Soap & Water Follow Up Care Please Follow Up With: Noel Roberts MD When: 7-10 days Test Results: Test results from this visit will be discussed in further detail at your follow- up appointment, if applicable. Discharge Plan Admission Admit Date/Time: 04/23/23 22:41 Primary Reason for Your Visit: Perforated diverticulitis Attending Provider: Noel Roberts Primary Care Provider: Dinora Serra Instructions Patient Instructions: RAD RN Abscess Drainage, RAD RN Procedural Sedation Discharge Orders/Prescriptions Prescriptions: New ciprofloxacin HCl 500 mg Tablet 500 mg PO BID 10 Days Qty: 20 0RF tramadol 50 mg Tablet 50 mg PO Q6H PRN PRN (Reason: Pain Score 4-10) Qty: 10 0RF amoxicillin-pot clavulanate 875-125 mg Tablet 1 tab PO BID 10 Days Qty: 20 0RF Continued levothyroxine 112 MCG tablet 125 mcg PO DAILY omeprazole 20 MG capsule,delayed release(DR/EC) 20 mg PO PRN PRN (Reason: Indigestion) ibuprofen 600 MG tablet 600 mg PO Q6H PRN PRN (Reason: Mild-Mod Pain (1-5/10)) Qty: 30 0RF Xeljanz XR 11 mg tablet extended release 24 hr 11 mg PO Q24H liothyronine 5 mcg tablet 5 mcg PO DAILY Patient Comments: TAKE 1 TABLET BY MOUTH DAILY take with levothoroxine Referrals / Follow Up: Dinora Serra DO [Primary Care Provider] - Disposition Disposition (needs filled in before D/C Order can be placed): Home, Self Care
[2023-04-27 18:25] VITALS: BP 131/82; PULSE 73; RESP 18; TEMP 37.1; O2SAT 100
== END 2023-04-27 18:25 | disposition home or self-care (01) | DRG 392 ==
LOC: ED 19:44 → MS3 23:18
PROVIDERS: Nurse Practitioner; Physician Assistant; Admitting Provider Surgery; Emergency Provider Emergency Medicine; PCP Family Medicine; Visit Provider Surgery
DX: K57.20 Diverticulitis of large intestine with perforation and abscess without bleeding (principal); T85.628A Displacement of other specified internal prosthetic devices, implants and grafts, initial encounter; E03.9 Hypothyroidism, unspecified; M06.9 Rheumatoid arthritis, unspecified; M79.7 Fibromyalgia; K59.00 Constipation, unspecified; Y84.4 Aspiration of fluid as the cause of abnormal reaction of the patient, or of later complication, without mention of misadventure at the time of the procedure; Y92.239 Unspecified place in hospital as the place of occurrence of the external cause; Z79.890 Hormone replacement therapy; Z79.899 Other long term (current) drug therapy; Z88.1 Allergy status to other antibiotic agents; R31.9 Hematuria, unspecified
CPT/HCPCS: 20501; 36415; 74177; 77012; 80048; 80053; 81001; 81002; 83690; 83735; 84100; 85025; 87070; 87075; 87077; 87186; 87205; 94668; 99156; 99157; 99252; 99284; J7030; J7050; Q9967; A4216; G0463; J0744; J2405

== ENCOUNTER → 2023-05-15 | Outpatient (CLI) | payer BC, SELFPAY ==
--- NOTE | 2023-05-15 15:37 | MRI_ITS ---
INDICATION: DDD, RADICULOPATHY,SPONDYLOSIS EXAMINATION: MRI - MR Spine Lumbar W/O Contrast TECHNIQUE: Multiplanar and multisequence MR images of the lumbar spine. IV Contrast Dosage and Agent: None. COMPARISON: Report from MRI lumbar spine dated 04/23/2011 FINDINGS: VERTEBRAE: Vertebral body heights are preserved. Normal vertebral bodies and posterior elements. VERTEBRAL ALIGNMENT: No spondylolisthesis. There is preservation of the normal lumbar lordosis. CORD: Normal position and signal intensity of the conus medullaris. L1/L2: Normal disc height and morphology. Normal spinal canal, lateral recesses and neuroforamina. Moderate facet arthropathy and ligamentum flavum hypertrophy. L2/L3: Mild loss of disc space height associated with a diffuse disc bulge. Moderate facet arthropathy. These changes lead to mild right neural foraminal narrowing. No significant foraminal narrowing on the left or central canal stenosis. L3/L4: Small broad-based posterior disc protrusion. Moderate facet arthropathy. These changes lead to mild right foraminal narrowing without significant foraminal narrowing on the left. No significant central canal stenosis. L4/L5: Small broad-based posterior disc protrusion. Mild facet throughout the ligamentum flavum hypertrophy. Mild bilateral neural foraminal narrowing. No significant central canal stenosis. L5/S1: Small focal posterior central subligamentous disc extrusion with increased T2 signal suggestive of an annular tear. Mild facet arthropathy. No significant foraminal narrowing or central canal stenosis. SOFT TISSUES: Unremarkable. MRI/Spine Lumbar (Routine) IMPRESSION: Multilevel multifactorial lumbar spondylosis as described. Electronically Signed: Bereket Wise MD at 17:27 EDT ,
== END | disposition home or self-care (01) ==
LOC: MRI 15:33
PROVIDERS: PCP Family Medicine; Visit Provider Nurse Practitioner Acute Care
DX: M51.37 Other intervertebral disc degeneration, lumbosacral region (principal); M46.96 Unspecified inflammatory spondylopathy, lumbar region; M54.17 Radiculopathy, lumbosacral region; M47.817 Spondylosis without myelopathy or radiculopathy, lumbosacral region
CPT/HCPCS: 72148

== ENCOUNTER 2023-05-28 08:50 | Day surgery (SDC) | payer BC, SELFPAY ==
--- NOTE | 2023-05-28 | COLBX_PTH ---
PATIENT: JOSE ALFREDO ZAPATA LOC: EN U#:[id number] AGE/SX: 53/F ROOM: RE05/28/[address]: Dr. Noel Roberts MD : 1970 BED: DIS: 05/28/2023 SPEC #: [id number] RECD: 05/28/23 12:55 STATUS: MARLO MELLYRancho #: [id number] RJ: 05/28/23 00:[address]: Noel Roberts DEPT: SURGICAL PATHOLOGY RECD BY: Talat Borja ENTERED: 05/28/23 12:55 SP TYPE: COLON BX OTHR DR: Dr. Dinora Serra, Tissues: Rectum, NOS Procedures: Surgery Specimen Level IV HEADER OPERATION: Colonoscopy with biopsy PRE-OP DIAGNOSIS: Colonic diverticular abscess TISSUE SUBMITTED: Rectal polyp biopsy MICROSCOPIC DIAGNOSIS Rectal polyp, biopsy: A fragment of colonic mucosa, no pathologic diagnosis. JOSEF:rosaline 05/29/2023 MICROSCOPIC DESCRIPTION Slides are reviewed. GROSS DESCRIPTION Received in fixative is one container labeled with the patient's name and designated rectal polyp biopsy. The specimen consists of one irregular fragment of light [place] soft tissue that measures 0.4 x 0.3 x 0.2 cm. The specimen is totally submitted in one cassette. / SJ:rg 05/28/2023 TC:4 CPT: 18063
[2023-05-28] MEDS: Lactated Ringers 1,000 ML 15 ML IV (09:17)
[2023-05-28 09:18] VITALS: BP 131/86; PULSE 78; RESP 17; TEMP 36.3; O2SAT 100; BMI 28.8
--- NOTE | 2023-05-28 10:11 | PCM.HP.BLA ---
History and Physical Date of Admission: 05/28/23 Date of Service: 05/03/23 MR#: [id number] Acct: [id number] Name: JOSE ALFREDO BURGOS Rep #: [id number] : 1970 Provider: Dr. Noel Roberts MD Age/Sex: 53/F Location: [facility] Status: Signed Intake Vital Signs 04/24/2314:21 Height 5 ft 8 in Intake Visit Reasons: ACUTE DIVERTICULITIS 04/27 Chief Complaint: acute diverticulits 04/27 Is patient in pain?: No Allergies ceftriaxone sodium [From Rocephin] Allergy (Verified 05/03/23 09:22) Rashoxycodone Adverse Reaction (Verified 05/03/23 09:22) Nausea/Vom/Diarrhea Medications levothyroxine 112 mcg tablet 125 mcg PO DAILY 06/25/13 [History Confirmed 05/03/23] omeprazole 20 mg capsule,delayed release 20 mg PO PRN PRN Indigestion 11/27/17 [History Confirmed 05/03/23] ibuprofen 600 mg tablet 600 mg PO Q6H PRN PRN Mild-Mod Pain (1-5/10) #30 tabs 12/04/17 [Rx Confirmed 05/03/23] liothyronine 5 mcg tablet 5 mcg PO DAILY 04/23/23 [History Confirmed 05/03/23] tofacitinib 11 mg tablet,extended release 24 hr (Xeljanz XR) 11 mg PO Q24H 04/23/23 [History Confirmed 05/03/23] amoxicillin 875 mg-potassium clavulanate 125 mg tablet 1 tab PO BID 10 days #20 tabs 04/27/23 [Rx Confirmed 05/03/23] ciprofloxacin HCl 500 mg tablet 500 mg PO BID 10 days #20 tabs 04/27/23 [Rx Confirmed 05/03/23] tramadol 50 mg tablet 50 mg PO Q6H PRN PRN Pain Score 4-10 5 days #10 tabs 04/27/23 [Rx Confirmed 05/03/23] Subjective Details: Patient is a 53-year-old female who makes first outpatient visit following inpatient stay for management of complicated diverticulitis. She states that overall she is doing well since hospital discharge. She notes that she took a little while to find motivation and has either been just lying around or doing housework. She denies any fevers or chills at home. She states her abdominal discomfort is significantly improved. She does note some hardness where her tube was (from percutaneous drain) and wishes to know whether this was go down. She denies any drainage from the site. She reports that her bowel movements are soft and formed. She states that she is still iffy when eating and sometimes will become full after only 1 meal per day. She is already making use of a probiotic to try to minimize her risk for a yeast infection while on antibiotics. Objective Details: Constitutional cooperative, no acute distress Abdomen: Nondistended, scabbed over suprapubic drain site, soft, tender to palpation of the left lower quadrant (rated 3 out of 10) Coding Level of Care Code Off vis,est,level 3 Diagnoses Colonic diverticular abscess K57.20 [facility] Medical History Arthritis Arthritis, rheumatoid Fibromyalgia Hypothyroidism Surgical History History of carpal tunnel release History of foot operation History of neck surgery History of shoulder surgery History of tonsillectomy Social History Smoking Status: Never smoker alcohol intake: current alcohol intake frequency: holidays/special occasions only Assessment and Plan (No Qualifiers) Assessment and Plan (1) Colonic diverticular abscess: Status: Acute Comment: This is a 53-year-old female who makes her first outpatient visit following an inpatient stay for management of complicated diverticulitis that required percutaneous drain placement. Drain was discontinued prior to patient's discharge from the hospital. Overall patient appears to be progressively improving. Her abdominal exam does show some tenderness persistently present in the left lower quadrant. At this point I recommend her completing her prescribed antibiotic course (due to finish through next week) and continue her probiotic. I have asked her to keep me informed if she then develops fevers or chills once the antibiotic course was completed. At this time we will plan for diagnostic colonoscopy in 6 weeks to evaluate that portion of her colon has been affected by this diverticulitis. She does wish to know whether or not there is any risk for colon cancer at this time. I have informed her that there are occasions in which colon cancer can masquerade as diverticulitis, however this is a minor event. I have also discussed with her the need for a prep in the procedure for undergoing a colonoscopy?including need for a p d driver the day of the procedure. Patient denies any questions and states she is eager to have the study completed. Plan: ? Continue antibiotic course to completion next week ? Continue probiotic ? Plan for diagnostic colonoscopy in 6 to 7 weeks ? Patient cleared to return to work starting 05/06/2023 I have examined the patient and the H&P has been reviewed. There are no clinical changes since date of exam. Mrs. Burgos reports that she has had minimal abdominal discomfort. She confirms that she completed a prep in anticipation of today's procedure. She denies any further questions and so we will therefore proceed with diagnostic colonoscopy as discussed in greater detail above.
[2023-05-28 11:10] VITALS: BP 112/72; BP 131/86; PULSE 67; RESP 16; TEMP 36.3; O2SAT 99
[2023-05-28 11:15] VITALS: BP 110/69; BP 131/86; PULSE 68; RESP 16; O2SAT 100
--- NOTE | 2023-05-28 11:16 | OP.CCLET_ITS ---
05/28/2023 Dinora Tirado Do Re : Colonoscopy procedure for Erlinda Atkins Dear Candida This procedure was performed on Sunday, May 28, 2023. My impressions and recommendations are as follows: Impressions : - Perianal skin tags found on perianal exam. - Tortuous colon. - Diverticulosis in the sigmoid colon. No specimens collected. - One 2 mm, non-bleeding polyp in the rectum. Biopsied. - Anal papilla(e) were hypertrophied. No specimens collected. - The examination was otherwise normal on direct and retroflexion views. Recommendations : - Discharge patient to home (via wheelchair). - High fiber diet today. - Continue present medications. - Await pathology results. - Repeat colonoscopy date to be determined after pending pathology results are reviewed for surveillance based on pathology results. - Telephone my office for pathology results in 1 week. My findings are described in the full procedure note, which is enclosed. If I can be of further assistance, please feel free to contact me at Doctor phone number(s): , Work: . Sincerely, Noel Roberts MD 05/28/2023 11:15:57 AM This report has been signed electronically.
--- NOTE | 2023-05-28 11:16 | OP.COLON_ITS ---
Patient Name: Erlinda Atkins Procedure Date: 05/28/2023 9:55 AM Date of : 1970 Age: 53 Procedure: Colonoscopy Indications: Diverticulitis Providers: Noel Roberts MD Referring MD: Dinora Tirado Do Medicines: See the Anesthesia note for documentation of the administered medications Patient Profile: Refer to note in patient chart for documentation of history and physical. Last Colonoscopy: 5 years ago. Complications: No immediate complications. Estimated blood loss: Minimal. Procedure: Pre-Anesthesia Assessment: - The heart rate, respiratory rate, oxygen saturations, blood pressure, adequacy of pulmonary ventilation, and response to care were monitored throughout the procedure. After I obtained informed consent, the scope was passed under direct vision. Throughout the procedure, the patient's blood pressure, pulse, and oxygen saturations were monitored continuously. The colonoscope was introduced through the anus and advanced to the cecum, identified by the ileocecal valve. The colonoscopy was performed with moderate difficulty due to multiple diverticula in the colon and a tortuous colon. Successful completion of the procedure was aided by lavage. The patient tolerated the procedure well. The quality of the bowel preparation was adequate to identify polyps. Scope In: 10:16:35 AM Scope Withdrawal Time 0 hours 16 minutes 52 seconds Scope Out: 11:05:06 AM Total Procedure Duration Time 0 hours 48 minutes 31 seconds Findings: Skin tags were found on perianal exam. The sigmoid colon was significantly tortuous. Advancing the scope required withdrawing and reinserting the scope. Many small and large-mouthed diverticula were found in the sigmoid colon. No biopsies or other specimens were collected for this exam. A 2 mm, non-bleeding polyp was found in the rectum. The polyp was sessile. Biopsies were taken with a cold forceps for histology. Anal papilla(e) were hypertrophied. No biopsies or other specimens were collected for this exam. The exam was otherwise without abnormality on direct and retroflexion views. Impression: - Perianal skin tags found on perianal exam. - Tortuous colon. - Diverticulosis in the sigmoid colon. No specimens collected. - One 2 mm, non-bleeding polyp in the rectum. Biopsied. - Anal papilla(e) were hypertrophied. No specimens collected. - The examination was otherwise normal on direct and retroflexion views. Recommendation: - Discharge patient to home (via wheelchair). - High fiber diet today. - Continue present medications. - Await pathology results. - Repeat colonoscopy date to be determined after pending pathology results are reviewed for surveillance based on pathology results. - Telephone my office for pathology results in 1 week. Procedure Code(s): --- Professional --- 57040, Colonoscopy, flexible; with biopsy, single or multiple Diagnosis Code(s): --- Professional --- D12.8, Benign neoplasm of rectum K62.89, Other specified diseases of anus and rectum K64.4, Residual hemorrhoidal skin tags K57.32, Diverticulitis of large intestine without perforation or abscess without bleeding K57.30, Diverticulosis of large intestine without perforation or abscess without bleeding Q43.8, Other specified congenital malformations of intestine CPT copyright 2021 [employer]. All rights reserved. The codes documented in this report are preliminary and upon adjunct latin professor review may be revised to meet current compliance requirements. Noel Roberts MD 05/28/2023 11:15:57 AM This report has been signed electronically. Number of Addenda: 0 Note Initiated On: 05/28/2023 9:55 AM
[2023-05-28 11:20] VITALS: BP 107/75; BP 131/86; PULSE 55; RESP 16; O2SAT 100
[2023-05-28 11:25] VITALS: BP 106/69; BP 131/86; PULSE 56; RESP 16; TEMP 36.2; O2SAT 100
[2023-05-28 11:58] VITALS: BP 131/86
== END 2023-05-28 12:06 | disposition home or self-care (01) ==
LOC: EN 08:51 → AC 08:52
PROVIDERS: PCP Family Medicine; Referring Provider Family Medicine; Visit Provider Surgery
PROC: 0DJD8ZZ Inspection of Lower Intestinal Tract, Via Natural or Artificial Opening Endoscopic (ICD-10-PCS; CPT 45378; principal; 2023-05-28 10:25)
DX: K62.1 Rectal polyp (principal); K57.20 Diverticulitis of large intestine with perforation and abscess without bleeding; K64.4 Residual hemorrhoidal skin tags; E03.9 Hypothyroidism, unspecified; K21.9 Gastro-esophageal reflux disease without esophagitis; Z87.19 Personal history of other diseases of the digestive system; Z79.899 Other long term (current) drug therapy; Z79.890 Hormone replacement therapy
CPT/HCPCS: 45380; 88305; J7120; J1610; J2405

== ENCOUNTER → 2023-06-05 | Outpatient (CLI) | payer BC, SELFPAY ==
[2023-06-05 10:43] LABS: Absolute Lymphocyte Count 1.84 X10^3/uL (0.83-4.51); Absolute Neutrophil Count 2.2 X10^3/uL (2.0-7.7); Basophil# 0.05 X10^3/uL; Basophil% 1.1 % (0-1); Eosinophil# 0.25 X10^3/uL; Eosinophils% 5.3 % (0-5); Hematocrit 38.6 % (37-47); Hemoglobin 12.6 g/dL (12.0-15.0); Lymphocyte # 1.84 X10^3/ul (0.83-4.51); Lymphocyte % 38.7 % (19-41); Mean Corp Hgb Conc 32.6 g/dL (32-36); Mean Corpuscular Hgb 29.2 pg (27.0-32.0); Mean Corpuscular Volume 89.6 fL (81-99); Mean Platelet Vol. 10.6 fl (6.2-12.0); Monocyte# 0.42 X10^3/uL; Monocyte% 8.8 % (0-10); NRBC Flagged by Analyzer 0 % (0-5); Neutrophil # 2.18 X10^3/uL (2.7-7.7); Neutrophil % 45.7 % (47-70); Platelet Count 323 K/mm3 (150-450); RBC Distribution Width CV 12.6 % (11.6-14.6); RBC Distribution Width SD 41.7 fl (35.1-43.9); Red Blood Count 4.31 M/mm3 (4.2-5.4); White Blood Count 4.8 K/mm3 (4.4-11.0)
[2023-06-05 11:20] LABS: AST(SGOT) 22 U/L (15-37); Alanine Aminotransfer ALT/SGPT 46 U/L (13-56); Albumin, Serum 3.7 g/dL (3.2-5.0); Alkaline Phosphatase 57 U/L (45-117); Anion Gap 3 (5-15); BUN 17 mg/dL (7-18); BUN/Creat Ratio 23.1 RATIO (10-20); Calcium,Total 9.2 mg/dL (8.5-10.1); Chloride 106 mmol/L (98-107); Creatinine, Serum 0.74 mg/dL (0.55-1.02); EST Glomerular Filtration Rate 88 mL/min (>60); Est Glom Filt Rate - Afr Amer 106 mL/min (>60); Globulin 3.6 g/dL (2.2-4.2); Glucose 95 mg/dL (74-106); Potassium 4.4 mmol/L (3.5-5.1); Protein, Total 7.3 g/dL (6.4-8.2); Sodium Level 138 mmol/L (136-145)
== END | disposition home or self-care (01) ==
LOC: MTLAB 08:33
PROVIDERS: PCP Family Medicine; Referring Provider Internal Medicine Rheumatology; Visit Provider Internal Medicine Rheumatology
DX: M06.079 Rheumatoid arthritis without rheumatoid factor, unspecified ankle and foot (principal); Z79.899 Other long term (current) drug therapy
CPT/HCPCS: 36415; 80053; 85025

== ENCOUNTER 2023-06-24 08:30 | Day surgery (SDC) | payer BC, SELFPAY ==
[2023-06-24 08:52] VITALS: BP 114/76; PULSE 80; RESP 16; TEMP 36.1; O2SAT 97; BMI 29.5
[2023-06-24] MEDS: Lactated Ringers 1,000 ML 15 ML IV (08:55)
[2023-06-24] MEDS: MethylPREDNISolone Acetate 80 MG/ML Vial (10:03)
--- NOTE | 2023-06-24 10:03 | RAD_ITS ---
PROCEDURE: Right L4 S1 transforaminal steroid injection. DATE OF EXAMINATION: June 24, 2023. INDICATION: Female, 53 years old. Chronic low back pain. FLUOROSCOPY TIME (if supplied): (13.1 seconds) minutes/seconds. 2.98 mGy. 2 images were submitted. RAD/Lumbar Spine 2 or 3 Views IMPRESSION: Intraoperative imaging provided for right L4-S1 transforaminal steroid injection. Electronically Signed: Sivakumar Avendano MD at 11:03 EST ,
[2023-06-24] MEDS: Lidocaine 1% (5 ml sdv) 5 ML Vial (10:04)
[2023-06-24 10:10] VITALS: BP 114/76; BP 116/68; PULSE 74; RESP 16; TEMP 36.8; O2SAT 100
--- NOTE | 2023-06-24 10:10 | OP.PCM_ITS ---
Report of Operation Date of Procedure: 06/24/23 Description of Surgical Findings:: PREOPERATIVE DIAGNOSIS: Lumbosacral radiculopathy, lumbosacral spinal stenosis, lumbosacral degenerative disc disease POSTOPERATIVE DIAGNOSIS: Lumbosacral radiculopathy, lumbosacral spinal stenosis, lumbosacral degenerative disc disease PROCEDURE PERFORMED: Right sided lumbar transforaminal epidural steroid injectio n, L4-5 and L5-S1. ANESTHESIA: MAC BLOOD LOSS: Less than 2 cc COMPLICATIONS: None DESCRIPTION OF PROCEDURE: History and physical of today was reviewed. Risks and benefits of the procedure were explained. The patient understood and agreed to proceed. Informed consent was obtained. IV inserted per routine protocol. The patient was taken to the operating room and placed in the prone position with a pillow positioned underneath the abdomen. The right side of the lower back was prepped and draped in a sterile fashion using iodine x3. Under fluoro scopy guidance on oblique view, the L4 through S1 vertebral bodies were visualized. The skin and subcutaneous tissue was anesthetized with approximately 5 mL of 1% lidocaine using a 25-gauge regular needle. Under direct visualization with fluoroscopy at approximately 35-degree angle, starting on the right L4, ending on the right L5, using a 22-gauge 5-inch spinal needle, the needle was advanced via the skin. The tip of the needle was maneuvered and directed towards the inferior and medial gutter of the transverse process at the superiormost aspect of the neural foramen. Once the tip of the needle was at the vicinity of the foramen, after negative aspiration for blood or CSF, a total of 1 mL of contrast was injected in divided doses between both levels to confirm correct placement of the needle as well as medial spread. The confirmation was obtained on AP as well as lateral view. After repeated negative aspiration and confirmation on AP as well as lateral view, a total of 6 mL of preservative-free 0.25% Marcaine with 80 mg of Depo-Medrol was injected in divided doses between both levels. The needles were then removed intact. The patient experienced no sign or symptoms of intrathecal or intravascular injection. The patient experienced no paresthesia. The procedure was completed without any apparent difficulty or any complications. The patient appeared to tolerate it well. Assessment and plan: This is a 53-year-old female with lumbosacral radiculopathy, lumbosacral spinal stenosis, lumbosacral degenerative disc disease status post right-sided lumbar transforaminal epidural steroid injection L4-5, L5-S1, patient will continue current medications, patient will follow in approximately 2 weeks for reevaluation.
[2023-06-24 10:15] VITALS: BP 114/76; BP 118/63; PULSE 66; RESP 16; O2SAT 100
[2023-06-24 10:20] VITALS: BP 114/76; BP 127/67; PULSE 68; RESP 16; O2SAT 99
[2023-06-24 10:25] VITALS: BP 114/76; BP 117/63; PULSE 71; RESP 16; TEMP 36.4; O2SAT 100
[2023-06-24 10:36] VITALS: BP 114/76
== END 2023-06-24 10:38 | disposition home or self-care (01) ==
LOC: SDC 08:33 → AC 08:33
PROVIDERS: PCP Family Medicine; Visit Provider Anesthesiology Pain Medicine
PROC: 3E0S3BZ Introduction of Anesthetic Agent into Epidural Space, Percutaneous Approach (ICD-10-PCS; CPT 64484; principal; 2023-06-24 10:25)
DX: M51.17 Intervertebral disc disorders with radiculopathy, lumbosacral region (principal); M48.07 Spinal stenosis, lumbosacral region; Z79.899 Other long term (current) drug therapy
CPT/HCPCS: 64484; 01992; 64483; 72100; J7120

== ENCOUNTER → 2023-08-22 | Outpatient (CLI) | payer BC, SELFPAY ==
--- OUTSIDE RECORDS SUMMARY | 2023-08-22 16:51 | XMS RPT_ITS | CCD ---
Author Name Unknown Address [address] [place] [address] Organization [facility] Care Team Providers Care Principal Cyber Engineer Name Role Phone Akash Choi Unavailable Unavailable Akash Choi Unavailable Unavailable Onofre TEJEDA, Teto Winslow Unavailable VARGAS SON DO Primary Care Physician Vargas Son DO Primary Care Provider [phone] Vargas Son DO Primary Care Provider [phone] VARGAS SON Primary Care Unavailable VARGAS SON Primary Care Unavailable VARGAS SON Primary Care Unavailable VARGAS SON Primary Care Unavailable RONAK BULL Attending Unavailable VARGAS SON DO Primary Care Unavailable VARGAS SON DO Primary Care Unavailable VARGAS SON DO Attending Unavailable VARGAS SON DO Primary Care Unavailable VARAGS SON DO Attending Unavailable VARGAS SON DO Primary Care Unavailable VARGAS SON DO Attending Unavailable Allergies Allergy Classification Reported Allergen(s) Allergy Type Date of Onset Reaction(s) Facility (7 sources) cefTRIAXone; Translations: [Ceftriaxone] Drug Allergy 3 Edema (finding) [facility] Work Phone: (6 sources) cefTRIAXone; Translations: [CEFTRIAXONE SODIUM] Drug Allergy 6 Hives [facility] Work Phone: (6 sources) oxyCODONE; Translations: [OXYCODONE] Drug Allergy 8 GI Upset [facility] Medications Current Medications Medication Drug Class(es) Dates Sig (Normalized) Sig (Original) Biotin (3 sources) Start: 09-11-2019 take 1 dose by mouth once daily biotin Dose : 10,000 mcg =, Oral, qDay, 0 Refill(s) Start Date: 09/11/19 Status: Ordered 24 hr buPROPion hydrochloride 150 mg extended release oral tablet (2 sources) Aminoketone Start: 11-03-2021 take 1 tablet by mouth every hour, then take 1 tablet by mouth every twenty-four hours Wellbutrin XL 150 mg/24 hours oral tablet, extended release Dose : 150 mg = 1 tab(s), Oral, q24h, # 30 tab(s), 1 Refill(s), Pharmacy: [facility], Anxiety Depression, 172, cm, 11/03/21 16:03:00 EDT, Height Start Date: 11/03/21 Status: Ordered doxycycline hyclate 100 mg oral tablet (1 source) Tetracycline-class Drug Start: 05-24-2022 End: 06-03-2022 take 1 tablet by mouth twice daily doxycycline (VIBRA-TABS) 100 mg tablet Take 1 tablet by mouth twice daily for 10 days. 20 tablet 0 05/24/2022 06/03/2022 Active Completed/Discontinued Medications Medication Drug Class(es) Dates Sig (Normalized) Sig (Original) 1 ml abatacept 125 mg/ml prefilled syringe (9 sources) Selective T Cell Costimulation Modulator Start: 06-20-2020 ORENCIA 125 MG/ML SOSY 1 injection daily ABATACEPT [id number] Jany Quiroga LPN Problems Active Problems Problem Classification Problem Date Documented Da te Episodic/Chronic Allergic reactions (2 sources) Allergic contact dermatitis caused by plant material; Translations: [Allergic contact dermatitis due to plants, except food] 03-29-2023 Episodic Anxiety disorders (6 sources) Anxiety 11-17-2019 Chronic Esophageal disorders (7 sources) Gastroesophageal reflux disease; Translations: [Gastroesophageal reflux disease without esophagitis] 08-19-2019 Chronic Immunizations and screening for infectious disease (4 sources) Viral screening status; Translations: [Encounter for screening for other viral diseases] Episodic Inflammation; infection of eye (except that caused by tuberculosis or sexually transmitteddisease) (6 sources) Hordeolum externum of left lower eyelid 11-16-2020 Episodic Menopausal disorders (1 source) Menopausal flushing 07-03-2023 Chronic Mood disorders (5 sources) Depressive disorder 11-03-2021 Chronic Nutritional deficiencies (7 sources) Vitamin D deficiency; Translations: [Vitamin D deficiency, unspecified] 04-05-2020 Chronic Other gastrointestinal disorders (6 sources) Irritable bowel syndrome with diarrhea 09-12-2021 Chronic Other gastrointestinal disorders (6 sources) Abdominal bloating 05-11-2021 Episodic Other gastrointestinal disorders (11 sources) Diarrhea; Translations: [Diarrhea, unspecified] Onset: 9 09-14-2020 Episodic Other non-traumatic joint disorders (1 source) Arthritis of acromioclavicular joint; Translations: [Unspecified osteoarthritis, unspecified site] Onset: 5 04-27-2015 Chronic Other nutritional; endocrine; and metabolic disorders (1 source) Body mass index 30+ - obesity 07-03-2023 Chronic Other skin disorders (6 sources) Mass of skin 08-19-2019 Episodic Other upper respiratory infections (1 source) Chronic sinusitis; Translations: [Chronic sinusitis, unspecified] Chronic Other upper respiratory infections (1 source) Upper respiratory infection; Translations: [Acute upper respiratory infection, unspecified] Episodic Peritonitis and intestinal abscess (1 source) Abscess of intestine 05-08-2023 Episodic Rheumatoid arthritis and related disease (12 sources) Rheumatoid arthritis; Translations: [Rheumatoid arthritis, unspecified] 09-12-2021 Chronic Spondylosis; intervertebral disc disorders; other back problems (1 source) Cervical radiculopathy; Translations: [Radiculopathy, cervical region] Onset: 0 06-21-2020 Chronic Thyroid disorders (17 sources) Hypothyroidism; Translations: [Non-toxic uninodular goiter] Onset: 6 05-06-2019 Chronic Unclassified (6 sources) Patient encounter status 11-28-2022 Unclassified (1 source) Influenza vaccination status 07-03-2023 Past or Other Problems Problem Classification Problem Date Documented Da te Episodic/Chronic Abdominal hernia (5 sources) Diaphragmatic hernia; Translations: [Diaphragmatic hernia without obstruction or gangrene] Onset: 03-17-2012 03-17-2012 Episodic Other connective tissue disease (1 source) Shoulder tendinitis; Translations: [Other shoulder lesions, left shoulder] Onset: 04-27-2015 04-27-2015 Episodic Other eye disorders (5 sources) Ptosis of eyelid; Translations: [Unspecified ptosis of bilateral eyelids] Onset: 12-23-2017 12-23-2017 Episodic Other eye disorders (3 sources) Excess skin of eyelid; Translations: [Dermatochalasis of right upper eyelid] Onset: 04-16-2018 04-16-2018 Episodic Other eye disorders (2 sources) Dermatochalasis of right upper eyelid; Translations: [Dermatochalasis] Onset: 04-16-2018 04-16-2018 Episodic Other gastrointestinal disorders (5 sources) Flatulence, eructation and gas pain; Translations: [Flatulence] Onset: 03-17-2012 03-17-2012 Episodic Other skin disorders (2 sources) Disorder of the skin and subcutaneous tissue, unspecified; Translations: [Disorder of the skin and subcutaneous tissue, unspecified] Onset: 02-07-2017 Episodic Other skin disorders (1 source) Nailbed deformity; Translations: [Nail disorder, unspecified] Onset: 02-07-2017 02-07-2017 Episodic Other skin disorders (5 sources) Acquired keratoderma; Translations: [Acquired keratosis [keratoderma] palmaris et plantaris] Onset: 03-20-2007 03-20-2007 Episodic Unclassified (1 source) Problem Results Test Name Value Interpretation Reference Range Facil ity Vital Signs Date Time Vital Sign Value Performing Clinician Facility 04-09-2023 16:43-0400 Body temperature 98.01 [degF] Amberly Dleeon APRN.ORDNANCE TRUCK INSTALLATION MECHANIC Work Phone: [facility] 04-09-2023 16:43-0400 Body weight 87.45 kg Amberly Deleon APRN.ORDNANCE TRUCK INSTALLATION MECHANIC Work Phone: [facility] 04-09-2023 16:43-0400 Diastolic blood pressure 84 mm[Hg] Amberly Deleon APRN.CNP Work Phone: [facility] 04-09-2023 16:43-0400 Heart rate 72 /min Amberly Deleon APRN.CNP Work Phone: [facility] 04-09-2023 16:43-0400 Respiratory rate 18 /min Amberly Prakennyler-Wood UNION CARPENTER.ORDNANCE TRUCK INSTALLATION MECHANIC Work Phone: [facility] 04-09-2023 16:43-0400 SaO2% (BldA) [Mass fraction] 98 % Amberly Praisler-Wood UNION CARPENTER.ORDNANCE TRUCK INSTALLATION MECHANIC Work Phone: [facility] 04-09-2023 16:43-0400 Systolic blood pressure 132 mm[Hg] Amberly Praisler-Wood UNION CARPENTER.ORDNANCE TRUCK INSTALLATION MECHANIC Work Phone: [facility] 03-29-2023 12:54-0400 Body temperature 98.49 [degF] Molly Foster UNION CARPENTER.ORDNANCE TRUCK INSTALLATION MECHANIC Work Phone: [facility] 03-29-2023 12:54-0400 Body weight 87.09 kg Molly Foster UNION CARPENTER.ORDNANCE TRUCK INSTALLATION MECHANIC Work Phone: [facility] 03-29-2023 12:54-0400 Diastolic blood pressure 82 mm[Hg] Molly Foster UNION CARPENTER.ORDNANCE TRUCK INSTALLATION MECHANIC Work Phone: [facility] 03-29-2023 12:54-0400 Heart rate 62 /min Molly Foster UNION CARPENTER.ORDNANCE TRUCK INSTALLATION MECHANIC Work Phone: [facility] 03-29-2023 12:54-0400 Respiratory rate 18 /min Molly Foster UNION CARPENTER.ORDNANCE TRUCK INSTALLATION MECHANIC Work Phone: [facility] 03-29-2023 12:54-0400 SaO2% (BldA) [Mass fraction] 97 % Molly Foster UNION CARPENTER.ORDNANCE TRUCK INSTALLATION MECHANIC Work Phone: [facility] 03-29-2023 12:54-0400 Systolic blood pressure 136 mm[Hg] Molly Foster UNION CARPENTER.ORDNANCE TRUCK INSTALLATION MECHANIC Work Phone: [facility] 05-24-2022 11:53-0400 Body temperature 97.39 [degF] Elsie KAPLAN-Gentry Work Phone: [facility] 05-24-2022 11:53-0400 Body weight 88.36 kg Elsie KAPLAN-C Work Phone: [facility] 05-24-2022 11:53-0400 Diastolic blood pressure 74 mm[Hg] Elsie Athy PA-C Work Phone: [facility] 05-24-2022 11:53-0400 Heart rate 68 /min Elsie Athy PA-C Work Phone: [facility] 05-24-2022 11:53-0400 Respiratory rate 18 /min Elsie Athy PA-C Work Phone: [facility] 05-24-2022 11:53-0400 SaO2% (BldA) [Mass fraction] 98 % Elsie Athy PA-C Work Phone: [facility] 05-24-2022 11:53-0400 Systolic blood pressure 130 mm[Hg] Elsie Athy PA-C Work Phone: [facility] 05-07-2022 18:32-0400 Body temperature 97.3 [degF] Lizette Phong UNION CARPENTER.ORDNANCE TRUCK INSTALLATION MECHANIC Work Phone: [facility] 05-07-2022 18:32-0400 Body weight 89.63 kg Lizette Phong UNION CARPENTER.ORDNANCE TRUCK INSTALLATION MECHANIC Work Phone: [facility] 05-07-2022 18:32-0400 Diastolic blood pressure 88 mm[Hg] Lizette Phong UNION CARPENTER.ORDNANCE TRUCK INSTALLATION MECHANIC Work Phone: [facility] 05-07-2022 18:32-0400 Heart rate 72 /min Lizette Phong UNION CARPENTER.ORDNANCE TRUCK INSTALLATION MECHANIC Work Phone: [facility] 05-07-2022 18:32-0400 Respiratory rate 18 /min Lizette Phong UNION CARPENTER.ORDNANCE TRUCK INSTALLATION MECHANIC Work Phone: [facility] 05-07-2022 18:32-0400 SaO2% (BldA) [Mass fraction] 98 % Lizette Phong UNION CARPENTER.ORDNANCE TRUCK INSTALLATION MECHANIC Work Phone: [facility] 05-07-2022 18:32-0400 Systolic blood pressure 120 mm[Hg] Lizette Phong UNION CARPENTER.ORDNANCE TRUCK INSTALLATION MECHANIC Work Phone: [phone] [place] [address] NEGATED: Highlighted [id number] 12:54-0500 BMI (Body Mass Index) 28.38 kg/m2 Milagros Quinones KOSHER BUTCHER [facility] Work Phone: NEGATED: Highlighted [id number] 12:54-0500 Body weight 84.37 kg Milagros Quinones KOSHER BUTCHER [facility] Work Phone: NEGATED: Highlighted [id number] 12:54-0500 Body weight 85 kg Milagros Quinones [facility] Work Phone: NEGATED: Highlighted [id number] 12:54-0500 BP Diastolic 0 mm[Hg] Milagrosmiles Quinones [facility] Work Phone: NEGATED: Highlighted [id number] 12:54-0500 BP Systolic 0 mm[Hg] Milagrosmiles Quinones [facility] Work Phone: NEGATED: Highlighted [id number] 12:54-0500 Height 172.72 cm Milagros Stacie [facility] Work Phone: NEGATED: Highlighted [id number] 12:54-0500 Height 173 cm Milagrosmiles Quinones [facility] Work Phone: NEGATED: Highlighted [id number] 12:54-0500 Pulse (Heart Rate) 0 /min Milagrosmiles Quinones [facility] Work Phone: Encounters Encounter Date Encounter Type Care Provider Facility Start: 08-07-2023 End: 08-08-2023 ambulatory RONAK BULL Facility:B Start: 07-03-2023 End: 07-04-2023 ambulatory VARGAS SON DO Facility:B Start: 07-03-2023 End: 07-03-2023 Patient encounter procedure VARGAS SON DO [facility] Start: 05-04-2023 End: 05-05-2023 ambulatory VARGAS SON DO Facility: Start: 04-09-2023 End: 04-09-2023 ambulatory VARGAS Marycruz ADELAIDA Facility:[facility] Start: 04-09-2023 End: 04-09-2023 Patient encounter procedure Amberly ShermanRyan ENGLISH.ORDNANCE TRUCK INSTALLATION MECHANIC Work Phone: [facility] Procedures Date Procedure Procedure Detail Performing Clinician Start: 06-21-2020 End: 06-21-2020 Blood pressure within normal parameters - no follow-up required Teto Adhikari MD Work Phone: Start: 06-21-2020 End: 06-21-2020 BMI documented as above normal parameters - follow-up documented Teto Adhikari MD Work Phone: Start: 06-21-2020 End: 06-21-2020 Documentation of current medications Teto Adhikari MD Work Phone: Start: 06-21-2020 End: 06-21-2020 Pain assessment documented as positive - follow-up documented Teto Adhikari MD Work Phone: Start: 06-21-2020 End: 06-21-2020 Radex shoulder complete minimum 2 views Teto Adhikari MD Work Phone: Start: 06-21-2020 End: 06-21-2020 Radex spine 1 view specify level Teto Adhikari MD Work Phone: Start: 06-21-2020 End: 06-21-2020 Tobacco non-user Teto Adhikari MD Work Phone: Start: 02-02-2014 Mammography Lizette Darling APRN.ORDNANCE TRUCK INSTALLATION MECHANIC Work Phone: Start: 11-30-2008 Colonoscopy Lizette Darling APRN.ORDNANCE TRUCK INSTALLATION MECHANIC Work Phone: Decompression of med carmelita nerve VARGAS SON DO Excision of cervical intervertebral disc VARGAS SON DO Plan of Treatment Date Care Activity Detail Author Start: 04-05-2023 Influenza vaccination INFLUENZA (#1) [facility] Start: 08-05-2022 DEPRESSION ASSESSMENT DEPRESSION ASS ESSMENT [facility] Start: 05-07-2022 End: 05-21-2022 SARS-CoV-2 (COVID-19) RNA [Presence] in Respiratory specimen by KERRY with probe detection [facility] Work Phone: Immunizations Immunization Date Immunization Notes Care Provider Fa ciliamanda 05-08-2023 influenza, injectabl e, quadrivalent, contains preservative; Translations: [Fluarix PF Quadrivalent ] VARGAS SON DO [facility] 06-04-2022 influenza, injectabl e, quadrivalent, contains preservative; Translations: [Fluarix PF Quadrivalent ] VARGAS SON DO [facility] 06-30-2021 influenza, injectabl e, quadrivalent, contains preservative; Translations: [Fluarix PF Quadrivalent ] VARGAS SON DO [facility] 06-08-2020 influenza, injectabl e, quadrivalent, preservative free; Translations: [Fluarix PF Quadrivalent ] VARGAS SON DO [facility] 05-06-2017 influenza virus vaccine, unspecified formulation VARGAS SON DO [facility] 05-05-2015 influenza virus vaccine, unspecified formulation VARGAS SON DO [facility] 05-05-2014 influenza virus vaccine, unspecified formulation VARGAS SON DO [facility] Payers Date Payer Category Payer Unknown 2020 Unknown [id number] 1970 Unknown [id number] [id number] 1970 Unknown [id number] [id number] 1970 Unknown [id number] [id number] 1970 Unknown [id number] [id number] Social History Date Type Detail Facility Start: 06-21-2020 End: 06-21-2020 Assertion Unknown if ever smoked [facility] Work Phone: Start: 01-10-2021 End: 11-28-2022 Ex-smoker (finding) [facility] Clinical Notes 03-17-2012 to 04-09-2023 Patient InstructionsAmberly Deleon APRN.ORDNANCE TRUCK INSTALLATION MECHANIC - 04/09/2023 5:03 PM Molly Lacy APRN.ORDNANCE TRUCK INSTALLATION MECHANIC - 03/29/2023 1:03 PM EDTCgordon Martin PA-C - 05/24/2022 1:32 PM EDTPatient InstructionsRadiology Note Date & Type Note Facility 04-09-2023 Note HNO ID: [id number] Author: Amberly Deleon APRN.ORDNANCE TRUCK INSTALLATION MECHANIC Service: ? Author Type: Nurse Practitioner Type: Progress Notes Filed: 04/09/2023 5:46 PM Note Text: This note was created using 2canriter. Suman Atkins is a 53 year old female. Patient presents with pruritic vesicular rash scattered on left leg and left arm for approximately two weeks after doing yard work. Patient was seen in [facility] care on 03/29 and treated with a prednisone taper. Patient has been using various OTC ointments and creams at home with no relief. She denies fever, cough, chest pain, or shortness of breath. Denies any additional exposures to known allergens. The history is provided by the patient. Rash Pertinent negatives include no cough, diarrhea, fever, shortness of breath or vomiting. Review of Systems Constitutional: Negative for chills and fever. Respiratory: Negative for cough and shortness of breath. Cardiovascular: Negative for chest pain. Gastrointestinal: Negative for abdominal pain, diarrhea, nausea and vomiting. Skin: Positive for rash. Neurological: Negative for headaches. All other systems reviewed and are negative. Objective BP 132/84 Pulse 72 Temp 36.7 ?C (98 ?F) (Tympanic) Resp 18 Wt 87.5 kg (192 lb 12.8 oz) LMP 08/12/2016 SpO2 98% BMI 28.89 kg/m? PAST MEDICAL HISTORY Diagnosis Date Acute gastritis without mention of hemorrhage Diaphragmatic hernia without mention of obstruction or gangrene Diarrhea Heartburn Rheumatoid arthritis(714.0) Unspecified asthma(493.90) Unspecified constipation Unspecified hypothyroidism PAST SURGICAL HISTORY Procedure Laterality Date BLEPHAROPLASTY, UPPER EYELID Bilateral 05/06/2018 COLONOSCOPY W/BIOPSY SINGLE/MULTIPLE 11/30/08 EGD TRANSORAL BIOPSY SINGLE/MULTIPLE 03/17/12 EYELID SURGERY PROCEDURE Bilateral 02/21/2018 BILATERAL cml ptosis repair 02/21/18 HYSTERECTOMY 12/2017 LIG/TRNSXJ FLP TUBE ABDL/VAG APPR UNI/BI 1991 Tubal ligation NEUROPLASTY AND/TRANSPOS MEDIAN NRV CARPAL TUNNE 02/07/2006 Carpal tunnel decomp Left NEUROPLASTY AND/TRANSPOS MEDIAN NRV CARPAL TUNNE 02/21/06 Carpal tunnel decomp Right REDUCTION OF LARGE BREAST 2005 Breast reduction TONSILLECTOMY PRIMARY/SECONDARY Tonsillectomy ALLERGIES Oxycodone and Rocephin [Ceftriaxone Sodium] MEDICATIONS XELJANZ XR 11 mg tablet, extended release levothyroxine (SYNTHROID) 112 mcg tablet Take 112 mcg by mouth once daily. omeprazole(PRILOSEC 20 MG CAP) Take one(1) capsule daily. triamcinolone (KENALOG) 0.025 % cream Apply to affected area twice daily for 14 days. predniSONE (DELTASONE) 10 mg tablet Take 4 tabs daily for 3 days, then 2 tabs daily for 3 days, then 1 tab daily for 3 days with food. (Patient not taking: Reported on 04/09/2023) benzonatate (TESSALON PERLES) 100 mg capsule Take 2 capsules by mouth three times daily as needed. (Patient not taking: Reported on 03/29/2023) hydrocodone/acetaminophen (VICODIN ORAL) Take by mouth. (Patient not taking: Reported on 01/07/2021 ) amitriptyline HCl (AMITRIPTYLINE ORAL) Take by mouth. (Patient not taking: Reported on 01/07/2021 ) VITAMIN D 50,000 unit capsule Take 1 capsule by mouth once each week. (Patient not taking: Reported on 05/07/2022) FOLIC ACID ORAL Take by mouth. (Patient not taking: Reported on 03/29/2023) leucovorin (LEUCOVORIN) 15 mg tablet (Patient not taking: Reported on 03/29/2023) erythromycin ophthalmic ointment Apply 1/2 inch ribbon per application. To both eyes and incisions. 4 times a day for 1 week, then 2 times a day for 1 week (Patient not taking: Reported on 05/28/2018 ) ABATACEPT (ORENCIA SUBCUTANEOUS) Inject subcutaneously once each week. (Patient not taking: Reported on 05/07/2022) methotrexate sodium (TREXALL) 5 mg tablet Not sure dose: takes 5 tabs once a week (Patient not taking: Reported on 03/29/2023) FAMILY HISTORY Problem Relation Age of Onset Hypertension Mother None Father Diabetes Paternal Grandmother other (PSORIASIS) Paternal Grandmother Social History Tobacco Use Smoking status: Never Smokeless tobacco: Never Substance Use Topics Alcohol use: No Drug use: No Physical Exam Vitals reviewed. Constitutional: General: She is not in acute distress. Appearance: Normal appearance. She is normal weight. She is not ill-appearing or toxic-appearing. Cardiovascular: Rate and Rhythm: Normal rate and regular rhythm. Pulmonary: Effort: Pulmonary effort is normal. No respiratory distress. Breath sounds: Normal breath sounds. Skin: General: Skin is warm and dry. Capillary Refill: Capillary refill takes less than 2 seconds. Findings: Erythema and rash present. Rash is papular and vesicular. Neurological: General: No focal deficit present. Mental Status: She is alert and oriented to person, place, and time. Mental status is at baseline. Psychiatric: Mood and Affect: Mood normal. Behavior: Behavior normal. (more content not included)... [facility] 04-09-2023 Instructions Amberly Deleon APRN.ORDNANCE TRUCK INSTALLATION MECHANIC - 04/09/2023 5:46 PM EDT ASSESSMENT/PLAN: 1. Poison sita - ICD9: 692.6, ICD10: L23.7 - Oral Steriod tx -prednisone taper completed. - Topical steriod tx with Rx for steriod cream/ointment- kenalog - Anti itch therapy of Calomine lotion, Oatmeal baths, and Oral Benydryl recommended prn - discussed skin care of rash - follow up if symptoms persist or worsen. E Efraín [employer]KER Student TEACHING PROVIDER (Physician/PA/UNION CARPENTER) NOTE OF PERSONAL INVOLVEMENT IN CARE: I have personally seen and examined the patient and performed the medical decision-making components. I have reviewed the Advanced Practice Registered Nurse (UNION CARPENTER) Student's documentation and verified the findings in the note as written. Any additions or changes are noted in bold/italics. Signature: Amberly Deleon Date: 04/09/2023 Time: 5:46 PM documented in this encounter [facility] 04-09-2023 History of Presen t illness Narrative Images from the original note were not included. This note was created using 2canriter. Subjective Jose Alfredo Atkins is a 53 year old female. Patient presents with pruritic vesicular rash scattered on left leg and left arm for approximately two weeks after doing yard work. Patient was seen in [facility] on 03/29 and treated with a prednisone taper. Patient has been using various OTC ointments and creams at home with no relief. She denies fever, cough, chest pain, or shortness of breath. Denies any additional exposures to known allergens. The history is provided by the patient. Rash Pertinent negatives include no cough, diarrhea, fever, shortness of breath or vomiting. Review of Systems Constitutional: Negative for chills and fever. Respiratory: Negative for cough and shortness of breath. Cardiovascular: Negative for chest pain. Gastrointestinal: Negative for abdominal pain, diarrhea, nausea and vomiting. Skin: Positive for rash. Neurological: Negative for headaches. All other systems reviewed and are negative. Objective BP 132/84 Pulse 72 Temp 36.7 C (98 F) (Tympanic) Resp 18 Wt 87.5 kg (192 lb 12.8 oz) LMP 08/12/2016 SpO2 98% BMI 28.89 kg/m PAST MEDICAL HISTORY Diagnosis Date Acute gastritis without mention of hemorrhage Diaphragmatic hernia without mention of obstruction or gangrene Diarrhea Heartburn Rheumatoid arthritis(714.0) Unspecified asthma(493.90) Unspecified constipation Unspecified hypothyroidism PAST SURGICAL HISTORY Procedure Laterality Date BLEPHAROPLASTY, UPPER EYELID Bilateral 05/06/2018 COLONOSCOPY W/BIOPSY SINGLE/MULTIPLE 11/30/08 EGD TRANSORAL BIOPSY SINGLE/MULTIPLE 03/17/12 EYELID SURGERY PROCEDURE Bilateral 02/21/2018 BILATERAL cml ptosis repair 02/21/18 HYSTERECTOMY 12/2017 LIG/TRNSXJ FLP TUBE ABDL/VAG APPR UNI/BI 1991 Tubal ligation NEUROPLASTY &/TRANSPOS MEDIAN NRV CARPAL TUNNE 02/07/2006 Carpal tunnel decomp Left NEUROPLASTY &/TRANSPOS MEDIAN NRV CARPAL TUNNE 02/21/06 Carpal tunnel decomp Right REDUCTION OF LARGE BREAST 2005 Breast reduction TONSILLECTOMY PRIMARY/SECONDARY <AGE 12 Tonsillectomy ALLERGIES Oxycodone and Rocephin [Ceftriaxone Sodium] MEDICATIONS XELJANZ XR 11 mg tablet, extended release levothyroxine (SYNTHROID) 112 mcg tablet Take 112 mcg by mouth once daily. omeprazole(PRILOSEC 20 MG CAP) Take one(1) capsule daily. triamcinolone (KENALOG) 0.025 % cream Apply to affected area twice daily for 14 days. predniSONE (DELTASONE) 10 mg tablet Take 4 tabs daily for 3 days, then 2 tabs daily for 3 days, then 1 tab daily for 3 days with food. (Patient not taking: Reported on 04/09/2023) benzonatate (TESSALON PERLES) 100 mg capsule Take 2 capsules by mouth three times daily as needed. (Patient not taking: Reported on 03/29/2023) hydrocodone/acetaminophen (VICODIN ORAL) Take by mouth. (Patient not taking: Reported on 01/07/2021 ) amitriptyline HCl (AMITRIPTYLINE ORAL) Take by mouth. (Patient not taking: Reported on 01/07/2021 ) VITAMIN D 50,000 unit capsule Take 1 capsule by mouth once each week. (Patient not taking: Reported on 05/07/2022) FOLIC ACID ORAL Take by mouth. (Patient not taking: Reported on 03/29/2023) leucovorin (LEUCOVORIN) 15 mg tablet (Patient not taking: Reported on 03/29/2023) erythromycin ophthalmic ointment Apply 1/2 inch ribbon per application. To both eyes and incisions. 4 times a day for 1 week, then 2 times a day for 1 week (Patient not taking: Reported on 05/28/2018 ) ABATACEPT (ORENCIA SUBCUTANEOUS) Inject subcutaneously once each week. (Patient not taking: Reported on 05/07/2022) methotrexate sodium (TREXALL) 5 mg tablet Not sure dose: takes 5 tabs once a week (Patient not taking: Reported on 03/29/2023) FAMILY HISTORY Problem Relation Age of Onset Hypertension Mother None Father Diabetes Paternal Grandmother other (PSORIASIS) Paternal Grandmother Social History Tobacco Use Smoking status: Never Smokeless tobacco: Never Substance Use Topics Alcohol use: No Drug use: No Physical Exam Vitals reviewed. Constitutional: General: She is not in acute distress. Appearance: Normal appearance. She is normal weight. She is not ill-appearing or toxic-appearing. Cardiovascular: Rate and Rhythm: Normal rate and regular rhythm. Pulmonary: Effort: Pulmonary effort is normal. No respiratory distress. Breath sounds: Normal breath sounds. Skin: General: Skin is warm and dry. Capillary Refill: Capillary refill takes less than 2 seconds. Findings: Erythema and rash present. Rash is papular and vesicular. Neurological: General: No focal deficit present. Mental Status: She is alert and oriented to person, place, and time. Mental status is at baseline. Psychiatric: Mood and Affect: Mood normal. Behavior: Behavior normal. Thought Content: Thought content normal. Judgment: Judgment normal. Assessment and Plan ASSESSMENT/PLAN: 1. Poison sita - ICD9: 692.6, ICD10: L23.7 - Oral Steriod tx -prednisone taper completed. - Topical steriod tx with Rx for steriod cream/ointment- kenalog - Anti itch therapy of Calomine lotion, Oatmeal baths, and Oral Benydryl recommended prn - discussed skin care of rash - follow up if symptoms persist or worsen. E Efraín [employer] Student TEACHING PROVIDER (Physician/PA/UNION CARPENTER) NOTE OF PERSONAL INVOLVEMENT IN CARE: I have personally seen and examined the patient and performed the medical decision-making components. I have reviewed the Advanced Practice Registered Nurse (UNION CARPENTER) Student's documentation and verified the findings in the note as written. Any additions or changes are noted in bold/italics. Signature: Amberly Deleon Date: 04/09/2023 Time: 5:46 PM documented in this encounter [facility] 03-29-2023 Note HNO ID: [id number] Author: Molly Foster APRN.ORDNANCE TRUCK INSTALLATION MECHANIC Service: ? Author Type: Nurse Practitioner Type: Progress Notes Filed: 03/29/2023 1:38 PM Note Text: Subjective Patient came in with complaints of itchy rash. Patient says it started about a week ago. Patient says is not getting any better. Patient says its on left arm and abdomen. Patient denies any other symptoms. The history is provided by the patient. No spanish medical interpreter was used. Review of Systems Constitutional: Negative. Skin: Negative. Objective Physical Exam Constitutional: Appearance: Normal appearance. Pulmonary: Effort: Pulmonary effort is normal. Skin: Comments: Patient has vesicular rash in the areas marked above consistent with contact dermatitis. No signs of infection or swelling. Neurological: Mental Status: She is alert. PAST MEDICAL HISTORY Diagnosis Date Acute gastritis without mention of hemorrhage Diaphragmatic hernia without mention of obstruction or gangrene Diarrhea Heartburn Rheumatoid arthritis(714.0) Unspecified asthma(493.90) Unspecified constipation Unspecified hypothyroidism PAST SURGICAL HISTORY Procedure Laterality Date BLEPHAROPLASTY, UPPER EYELID Bilateral 05/06/2018 COLONOSCOPY W/BIOPSY SINGLE/MULTIPLE 11/30/08 EGD TRANSORAL BIOPSY SINGLE/MULTIPLE 03/17/12 EYELID SURGERY PROCEDURE Bilateral 02/21/2018 BILATERAL cml ptosis repair 02/21/18 HYSTERECTOMY 12/2017 LIG/TRNSXJ FLP TUBE ABDL/VAG APPR UNI/BI 1991 Tubal ligation NEUROPLASTY AND/TRANSPOS MEDIAN NRV CARPAL TUNNE 02/07/2006 Carpal tunnel decomp Left NEUROPLASTY AND/TRANSPOS MEDIAN NRV CARPAL TUNNE 02/21/06 Carpal tunnel decomp Right REDUCTION OF LARGE BREAST 2006 Breast reduction TONSILLECTOMY PRIMARY/SECONDARY Tonsillectomy ALLERGIES Oxycodone and Rocephin [Ceftriaxone Sodium] MEDICATIONS XELJANZ XR 11 mg tablet, extended release levothyroxine (SYNTHROID) 112 mcg tablet Take 112 mcg by mouth once daily. omeprazole(PRILOSEC 20 MG CAP) Take one(1) capsule daily. predniSONE (DELTASONE) 10 mg tablet Take 4 tabs daily for 3 days, then 2 tabs daily for 3 days, then 1 tab daily for 3 days with food. benzonatate (TESSALON PERLES) 100 mg capsule Take 2 capsules by mouth three times daily as needed. (Patient not taking: Reported on 03/29/2023) hydrocodone/acetaminophen (VICODIN ORAL) Take by mouth. (Patient not taking: Reported on 01/07/2021 ) amitriptyline HCl (AMITRIPTYLINE ORAL) Take by mouth. (Patient not taking: Reported on 01/07/2021 ) VITAMIN D 50,000 unit capsule Take 1 capsule by mouth once each week. (Patient not taking: Reported on 05/07/2022) FOLIC ACID ORAL Take by mouth. (Patient not taking: Reported on 03/29/2023) leucovorin (LEUCOVORIN) 15 mg tablet (Patient not taking: Reported on 03/29/2023) erythromycin ophthalmic ointment Apply 1/2 inch ribbon per application. To both eyes and incisions. 4 times a day for 1 week, then 2 times a day for 1 week (Patient not taking: Reported on 05/28/2018 ) ABATACEPT (ORENCIA SUBCUTANEOUS) Inject subcutaneously once each week. (Patient not taking: Reported on 05/07/2022) methotrexate sodium (TREXALL) 5 mg tablet Not sure dose: takes 5 tabs once a week (Patient not taking: Reported on 03/29/2023) FAMILY HISTORY Problem Relation Age of Onset Hypertension Mother None Father Diabetes Paternal Grandmother other (PSORIASIS) Paternal Grandmother Social History Tobacco Use Smoking status: Never Smokeless tobacco: Never Substance Use Topics Alcohol use: No Drug use: No ASSESSMENT/PLAN: 1. Allergic contact dermatitis due to plants, except food - ICD9: 692.6, ICD10: L23.7 - PREDNISONE 10 MG TABLET Patient was educated about proper use of medication and supportive therapies. Patient will follow-up if signs and symptoms seem to be getting worse not better. Patient was okay with this care plan. Molly Foster APRN.[facility] 03-29-2023 History of Presen t illness Narrative Images from the original note were not included. Subjective Patient came in with complaints of itchy rash. Patient says it started about a week ago. Patient says is not getting any better. Patient says its on left arm and abdomen. Patient denies any other symptoms. The history is provided by the patient. No spanish medical interpreter was used. Review of Systems Constitutional: Negative. Skin: Negative. Objective Physical Exam Constitutional: Appearance: Normal appearance. Pulmonary: Effort: Pulmonary effort is normal. Skin: Comments: Patient has vesicular rash in the areas marked above consistent with contact dermatitis. No signs of infection or swelling. Neurological: Mental Status: She is alert. PAST MEDICAL HISTORY Diagnosis Date Acute gastritis without mention of hemorrhage Diaphragmatic hernia without mention of obstruction or gangrene Diarrhea Heartburn Rheumatoid arthritis(714.0) Unspecified asthma(493.90) Unspecified constipation Unspecified hypothyroidism PAST SURGICAL HISTORY Procedure Laterality Date BLEPHAROPLASTY, UPPER EYELID Bilateral 05/06/2018 COLONOSCOPY W/BIOPSY SINGLE/MULTIPLE 11/30/08 EGD TRANSORAL BIOPSY SINGLE/MULTIPLE 03/17/12 EYELID SURGERY PROCEDURE Bilateral 02/21/2018 BILATERAL cml ptosis repair 02/21/18 HYSTERECTOMY 12/2017 LIG/TRNSXJ FLP TUBE ABDL/VAG APPR UNI/BI 1991 Tubal ligation NEUROPLASTY &/TRANSPOS MEDIAN NRV CARPAL TUNNE 02/07/2006 Carpal tunnel decomp Left NEUROPLASTY &/TRANSPOS MEDIAN NRV CARPAL TUNNE 02/21/06 Carpal tunnel decomp Right REDUCTION OF LARGE BREAST 2005 Breast reduction TONSILLECTOMY PRIMARY/SECONDARY <AGE 12 Tonsillectomy ALLERGIES Oxycodone and Rocephin [Ceftriaxone Sodium] MEDICATIONS XELJANZ XR 11 mg tablet, extended release levothyroxine (SYNTHROID) 112 mcg tablet Take 112 mcg by mouth once daily. omeprazole(PRILOSEC 20 MG CAP) Take one(1) capsule daily. predniSONE (DELTASONE) 10 mg tablet Take 4 tabs daily for 3 days, then 2 tabs daily for 3 days, then 1 tab daily for 3 days with food. benzonatate (TESSALON PERLES) 100 mg capsule Take 2 capsules by mouth three times daily as needed. (Patient not taking: Reported on 03/29/2023) hydrocodone/acetaminophen (VICODIN ORAL) Take by mouth. (Patient not taking: Reported on 01/07/2021 ) amitriptyline HCl (AMITRIPTYLINE ORAL) Take by mouth. (Patient not taking: Reported on 01/07/2021 ) VITAMIN D 50,000 unit capsule Take 1 capsule by mouth once each week. (Patient not taking: Reported on 05/07/2022) FOLIC ACID ORAL Take by mouth. (Patient not taking: Reported on 03/29/2023) leucovorin (LEUCOVORIN) 15 mg tablet (Patient not taking: Reported on 03/29/2023) erythromycin ophthalmic ointment Apply 1/2 inch ribbon per application. To both eyes and incisions. 4 times a day for 1 week, then 2 times a day for 1 week (Patient not taking: Reported on 05/28/2018 ) ABATACEPT (ORENCIA SUBCUTANEOUS) Inject subcutaneously once each week. (Patient not taking: Reported on 05/07/2022) methotrexate sodium (TREXALL) 5 mg tablet Not sure dose: takes 5 tabs once a week (Patient not taking: Reported on 03/29/2023) FAMILY HISTORY Problem Relation Age of Onset Hypertension Mother None Father Diabetes Paternal Grandmother other (PSORIASIS) Paternal Grandmother Social History Tobacco Use Smoking status: Never Smokeless tobacco: Never Substance Use Topics Alcohol use: No Drug use: No ASSESSMENT/PLAN: 1. Allergic contact dermatitis due to plants, except food - ICD9: 692.6, ICD10: L23.7 - PREDNISONE 10 MG TABLET Patient was educated about proper use of medication and supportive therapies. Patient will follow-up if signs and symptoms seem to be getting worse not better. Patient was okay with this care plan. Molly Foster APRN.[facility] documented in this encounter [facility] 05-24-2022 Note HNO ID: [id number] Author: Elsie Martin PA-C Service: ? Author Type: Physician Student Loan Counselor Type: Progress Notes Filed: 05/24/2022 1:34 PM Note Text: This note was created using 2canriter. Subjective Jose Alfredo Atkins is a 52 year old female. HPI Patient presents with a chief complaint of cough and congestion over the past 3 weeks. She was seen at the beginning of the month and had a negative COVID and flu. She has not felt better so she came it back in for evaluation. She has been using [id number] cough and cold medications. No fever recently. No vomiting or diarrhea. She still has a lot of sinus pressure and congestion and coughing. She has a history of RA and is on immunotherapy for this. Review of Systems Constitutional: Positive for fatigue. HENT: Positive for congestion, postnasal drip, sinus pressure and sinus pain. Negative for ear pain. Respiratory: Positive for cough. Negative for shortness of breath and wheezing. Cardiovascular: Negative. Gastrointestinal: Negative. Genitourinary: Negative. Musculoskeletal: Positive for myalgias. Skin: Negative. All other systems reviewed and are negative. PAST MEDICAL HISTORY Diagnosis Date Acute gastritis without mention of hemorrhage Diaphragmatic hernia without mention of obstruction or gangrene Diarrhea Heartburn Rheumatoid arthritis(714.0) Unspecified asthma(493.90) Unspecified constipation Unspecified hypothyroidism Current Outpatient Medications Medication Sig Dispense Refill XELJANZ XR 11 mg tablet, extended release leucovorin (LEUCOVORIN) 15 mg tablet levothyroxine (SYNTHROID) 112 mcg tablet Take 112 mcg by mouth once daily. methotrexate sodium (TREXALL) 5 mg tablet Not sure dose: takes 5 tabs once a week omeprazole(PRILOSEC 20 MG CAP) Take one(1) capsule daily. 0 doxycycline (VIBRA-TABS) 100 mg tablet Take 1 tablet by mouth twice daily for 10 days. 20 tablet 0 benzonatate (TESSALON PERLES) 100 mg capsule Take 2 capsules by mouth three times daily as needed. 30 capsule 0 hydrocodone/acetaminophen (VICODIN ORAL) Take by mouth. (Patient not taking: Reported on 01/07/2021 ) amitriptyline HCl (AMITRIPTYLINE ORAL) Take by mouth. (Patient not taking: Reported on 01/07/2021 ) VITAMIN D 50,000 unit capsule Take 1 capsule by mouth once each week. (Patient not taking: Reported on 05/07/2022) 0 FOLIC ACID ORAL Take by mouth. erythromycin ophthalmic ointment Apply 1/2 inch ribbon per application. To both eyes and incisions. 4 times a day for 1 week, then 2 times a day for 1 week (Patient not taking: Reported on 05/28/2018 ) 1 Tube 1 ABATACEPT (ORENCIA SUBCUTANEOUS) Inject subcutaneously once each week. (Patient not taking: Reported on 05/07/2022) No current facility-administered medications for this visit. PAST SURGICAL HISTORY Procedure Laterality Date BLEPHAROPLASTY, UPPER EYELID Bilateral 05/06/2018 COLONOSCOPY W/BIOPSY SINGLE/MULTIPLE 11/30/08 EGD TRANSORAL BIOPSY SINGLE/MULTIPLE 03/17/12 EYELID SURGERY PROCEDURE Bilateral 02/21/2018 BILATERAL cml ptosis repair 02/21/18 HYSTERECTOMY 12/2017 LIG/TRNSXJ FLP TUBE ABDL/VAG APPR UNI/BI 1991 Tubal ligation NEUROPLASTY AND/TRANSPOS MEDIAN NRV CARPAL TUNNE 02/07/2006 Carpal tunnel decomp Left NEUROPLASTY AND/TRANSPOS MEDIAN NRV CARPAL TUNNE 02/21/06 Carpal tunnel decomp Right REDUCTION OF LARGE BREAST 2005 Breast reduction TONSILLECTOMY PRIMARY/SECONDARY Tonsillectomy FAMILY HISTORY Problem Relation Age of Onset Hypertension Mother None Father Diabetes Paternal Grandmother other (PSORIASIS) Paternal Grandmother Social History Tobacco Use Smoking status: Never Smokeless tobacco: Never Substance Use Topics Alcohol use: No Drug use: No Objective BP 130/74 Pulse 68 Temp 36.3 ?C (97.4 ?F) (Tympanic) Resp 18 Wt 88.4 kg (194 lb 12.8 oz) LMP 08/12/2016 SpO2 98% BMI 29.19 kg/m? Physical Exam Vitals reviewed. Constitutional: Appearance: Normal appearance. HENT: Head: Normocephalic and atraumatic. Right Ear: Tympanic membrane, ear canal and external ear normal. Left Ear: Tympanic membrane, ear canal and external ear normal. Nose: Congestion present. Right Sinus: Maxillary sinus tenderness and frontal sinus tenderness present. Left Sinus: Maxillary sinus tenderness and frontal sinus tenderness present. Cardiovascular: Rate and Rhythm: Normal rate and regular rhythm. Heart sounds: Normal heart sounds. Pulmonary: Effort: Pulmonary effort is normal. Breath sounds: Normal breath sounds. Musculoskeletal: Cervical back: Neck supple. Lymphadenopathy: Cervical: No cervical adenopathy. Skin: General: Skin is warm and dry. Findings: No rash. Neurological: General: No focal deficit present. Mental Status: She is alert. Assessment and Plan ASSESSMENT/PLAN: 1. Sinobronchitis - ICD9: 473.9, 490, ICD10: J32.9, J40 - Will begin treatment with Doxycycline and tessalon. Patie (more content not included)... [facility] 05-24-2022 History of Presen t illness Narrative This note was created using 2canriter. Subjective Jose Alfredo Atkins is a 52 year old female. HPI Patient presents with a chief complaint of cough and congestion over the past 3 weeks. She was seen at the beginning of the month and had a negative COVID and flu. She has not felt better so she came it back in for evaluation. She has been using roei-sei-rtubtup cough and cold medications. No fever recently. No vomiting or diarrhea. She still has a lot of sinus pressure and congestion and coughing. She has a history of RA and is on immunotherapy for this. Review of Systems Constitutional: Positive for fatigue. HENT: Positive for congestion, postnasal drip, sinus pressure and sinus pain. Negative for ear pain. Respiratory: Positive for cough. Negative for shortness of breath and wheezing. Cardiovascular: Negative. Gastrointestinal: Negative. Genitourinary: Negative. Musculoskeletal: Positive for myalgias. Skin: Negative. All other systems reviewed and are negative. PAST MEDICAL HISTORY Diagnosis Date Acute gastritis without mention of hemorrhage Diaphragmatic hernia without mention of obstruction or gangrene Diarrhea Heartburn Rheumatoid arthritis(714.0) Unspecified asthma(493.90) Unspecified constipation Unspecified hypothyroidism Current Outpatient Medications Medication Sig Dispense Refill XELJANZ XR 11 mg tablet, extended release leucovorin (LEUCOVORIN) 15 mg tablet levothyroxine (SYNTHROID) 112 mcg tablet Take 112 mcg by mouth once daily. methotrexate sodium (TREXALL) 5 mg tablet Not sure dose: takes 5 tabs once a week omeprazole(PRILOSEC 20 MG CAP) Take one(1) capsule daily. 0 doxycycline (VIBRA-TABS) 100 mg tablet Take 1 tablet by mouth twice daily for 10 days. 20 tablet 0 benzonatate (TESSALON PERLES) 100 mg capsule Take 2 capsules by mouth three times daily as needed. 30 capsule 0 hydrocodone/acetaminophen (VICODIN ORAL) Take by mouth. (Patient not taking: Reported on 01/07/2021 ) amitriptyline HCl (AMITRIPTYLINE ORAL) Take by mouth. (Patient not taking: Reported on 01/07/2021 ) VITAMIN D 50,000 unit capsule Take 1 capsule by mouth once each week. (Patient not taking: Reported on 05/07/2022) 0 FOLIC ACID ORAL Take by mouth. erythromycin ophthalmic ointment Apply 1/2 inch ribbon per application. To both eyes and incisions. 4 times a day for 1 week, then 2 times a day for 1 week (Patient not taking: Reported on 05/28/2018 ) 1 Tube 1 ABATACEPT (ORENCIA SUBCUTANEOUS) Inject subcutaneously once each week. (Patient not taking: Reported on 05/07/2022) No current facility-administered medications for this visit. PAST SURGICAL HISTORY Procedure Laterality Date BLEPHAROPLASTY, UPPER EYELID Bilateral 05/06/2018 COLONOSCOPY W/BIOPSY SINGLE/MULTIPLE 11/30/08 EGD TRANSORAL BIOPSY SINGLE/MULTIPLE 03/17/12 EYELID SURGERY PROCEDURE Bilateral 02/21/2018 BILATERAL cml ptosis repair 02/21/18 HYSTERECTOMY 12/2017 LIG/TRNSXJ FLP TUBE ABDL/VAG APPR UNI/BI 1991 Tubal ligation NEUROPLASTY &/TRANSPOS MEDIAN NRV CARPAL TUNNE 02/07/2006 Carpal tunnel decomp Left NEUROPLASTY &/TRANSPOS MEDIAN NRV CARPAL TUNNE 02/21/06 Carpal tunnel decomp Right REDUCTION OF LARGE BREAST 2006 Breast reduction TONSILLECTOMY PRIMARY/SECONDARY <AGE 12 Tonsillectomy FAMILY HISTORY Problem Relation Age of Onset Hypertension Mother None Father Diabetes Paternal Grandmother other (PSORIASIS) Paternal Grandmother Social History Tobacco Use Smoking status: Never Smokeless tobacco: Never Substance Use Topics Alcohol use: No Drug use: No Objective BP 130/74 Pulse 68 Temp 36.3 C (97.4 F) (Tympanic) Resp 18 Wt 88.4 kg (194 lb 12.8 oz) LMP 08/12/2016 SpO2 98% BMI 29.19 kg/m Physical Exam Vitals reviewed. Constitutional: Appearance: Normal appearance. HENT: Head: Normocephalic and atraumatic. Right Ear: Tympanic membrane, ear canal and external ear normal. Left Ear: Tympanic membrane, ear canal and external ear normal. Nose: Congestion present. Right Sinus: Maxillary sinus tenderness and frontal sinus tenderness present. Left Sinus: Maxillary sinus tenderness and frontal sinus tenderness present. Cardiovascular: Rate and Rhythm: Normal rate and regular rhythm. Heart sounds: Normal heart sounds. Pulmonary: Effort: Pulmonary effort is normal. Breath sounds: Normal breath sounds. Musculoskeletal: Cervical back: Neck supple. Lymphadenopathy: Cervical: No cervical adenopathy. Skin: General: Skin is warm and dry. Findings: No rash. Neurological: General: No focal deficit present. Mental Status: She is alert. Assessment and Plan ASSESSMENT/PLAN: 1. Sinobronchitis - ICD9: 473.9, 490, ICD10: J32.9, J40 - Will begin treatment with Doxycycline and tessalon. Patient declined prednisone. - Supportive care with plenty of fluids, rest, and analgesia prn. Elsie Martin PA-C documented in this encounter [facility] 05-08-2022 Miscellaneous Notes Formattin g of this note might be different from the original. Spoke with pt and information listed below given. Pt verbalizes understanding. Dulce Chin LPN Let patient know their covid19 test was negative. documented in this encounter [facility] 05-07-2022 Note HNO ID: [id number] Author: Lizette Darling APRN.ORDNANCE TRUCK INSTALLATION MECHANIC Service: ? Author Type: Nurse Practitioner Type: Progress Notes Filed: 05/07/2022 6:58 PM Note Text: Subjective The history is provided by the patient. No spanish medical interpreter was used. JESSE Atkins is a 52 year old female who presents today for CC of sore throat, cough, and right ear pain. This started 2 days ago. She has not used any treatment or medications. She denies any known exposure to viral illness, covid. She is on immunotherapy for RA. BP 120/88 Pulse 72 Temp 36.3 ?C (97.3 ?F) Resp 18 Wt 89.6 kg (197 lb 9.6 oz) LMP 08/12/2016 SpO2 98% BMI 29.61 kg/m? Social History Tobacco Use Smoking status: Never Smokeless tobacco: Never Substance Use Topics Alcohol use: No Drug use: No PAST MEDICAL HISTORY Diagnosis Date Acute gastritis without mention of hemorrhage Diaphragmatic hernia without mention of obstruction or gangrene Diarrhea Heartburn Rheumatoid arthritis(714.0) Unspecified asthma(493.90) Unspecified constipation Unspecified hypothyroidism I have confirmed and edited as necessary, the [facility] Review of Systems Constitutional: Positive for malaise/fatigue. Negative for chills and fever. HENT: Positive for congestion, sinus pain and sore throat. Negative for ear pain. Respiratory: Negative for cough, sputum production, shortness of breath and wheezing. Cardiovascular: Negative for chest pain. Gastrointestinal: Negative for abdominal pain, diarrhea, nausea and vomiting. Musculoskeletal: Positive for myalgias. Neurological: Positive for headaches. Objective Physical Exam Vitals and nursing note reviewed. HENT: Head: Normocephalic and atraumatic. Right Ear: Ear canal and external ear normal. A middle ear effusion is present. Tympanic membrane is bulging. Left Ear: Ear canal and external ear normal. A middle ear effusion is present. Tympanic membrane is bulging. Nose: Mucosal edema, congestion and rhinorrhea present. Right Sinus: No maxillary sinus tenderness or frontal sinus tenderness. Left Sinus: No maxillary sinus tenderness or frontal sinus tenderness. Mouth/Throat: Pharynx: Uvula midline. Posterior oropharyngeal erythema (mild) present. No oropharyngeal exudate. Cardiovascular: Rate and Rhythm: Normal rate and regular rhythm. Heart sounds: Normal heart sounds. Pulmonary: Effort: Pulmonary effort is normal. Breath sounds: Normal breath sounds. Lymphadenopathy: Head: Right side of head: No submental, submandibular or tonsillar adenopathy. Left side of head: No submental, submandibular or tonsillar adenopathy. Cervical: No cervical adenopathy. Skin: General: Skin is warm and dry. Neurological: Mental Status: She is alert. Psychiatric: Mood and Affect: Affect normal. ASSESSMENT/PLAN: 1. URI with cough and congestion - ICD9: 465.9, ICD10: J06.9 - Discussed viral etiology and rationale for treatment. - Symptomatic treatment with prn analgesia - Supportive care with fluids and rest - 2019 CORONAVIRUS Home isolation Testing ordered Comfort measures discussed - see patient instructions. When to seek higher level of care Notified in 24-48 hours with results, available on Ping[employer] - ok to leave message Diagnosis and treatment plan were discussed and questions were answered to the patient's satisfaction. Pt acknowledged understanding of concepts and follow up plan. Specific signs and symptoms that would indicate the need for higher level of care were discussed in detail warranting prompt ER evaluation. Lizette Darling APRN.CNP [facility] 05-07-2022 Instructions Lizette Darling APRN.CNP - 05/07/2022 6:47 PM EDT covid test ordered You will be notified in 24 hours, results available on [employer] Home isolation until covid results are back Rest, increase water intake Motrin or Tylenol as needed for fever or pain. Salt water gargles, chloraseptic spray or lozenges as needed for sore throat. Warm beverages, honey. Nasal saline spray as needed Cool mist humidifier at night Tylenol (generic acetaminophen) 500 mg-2 tabs every 8 hrs. as needed for fever and aches Ibuprofen 600 mg (3-200mg tablets) every 6 hours -Sudafed (generic is fine), behind the counter, 2x30 mg tabs twice daily as needed for congestion -Mucinex (generic is fine) Guaifenesin 1200 mg twice daily to help with cough and to thin out mucus Flonase or Nasonex 2 sprays in each nostril once a day * Seek medical care immediately, call 911, go to ER if you have chest pain, difficulty breathing, shortness of breath, inability to swallow. documented in this encounter [facility] 05-07-2022 History of Presen t illness Narrative Subjective The history is provided by the patient. No spanish medical interpreter was used. HPI Jose Alfredo Atkins is a 52 year old female who presents today for CC of sore throat, cough, and right ear pain. This started 2 days ago. She has not used any treatment or medications. She denies any known exposure to viral illness, covid. She is on immunotherapy for RA. BP 120/88 Pulse 72 Temp 36.3 C (97.3 F) Resp 18 Wt 89.6 kg (197 lb 9.6 oz) LMP 08/12/2016 SpO2 98% BMI 29.61 kg/m Social History Tobacco Use Smoking status: Never Smokeless tobacco: Never Substance Use Topics Alcohol use: No Drug use: No PAST MEDICAL HISTORY Diagnosis Date Acute gastritis without mention of hemorrhage Diaphragmatic hernia without mention of obstruction or gangrene Diarrhea Heartburn Rheumatoid arthritis(714.0) Unspecified asthma(493.90) Unspecified constipation Unspecified hypothyroidism I have confirmed and edited as necessary, the [facility] Review of Systems Constitutional: Positive for malaise/fatigue. Negative for chills and fever. HENT: Positive for congestion, sinus pain and sore throat. Negative for ear pain. Respiratory: Negative for cough, sputum production, shortness of breath and wheezing. Cardiovascular: Negative for chest pain. Gastrointestinal: Negative for abdominal pain, diarrhea, nausea and vomiting. Musculoskeletal: Positive for myalgias. Neurological: Positive for headaches. Objective Physical Exam Vitals and nursing note reviewed. HENT: Head: Normocephalic and atraumatic. Right Ear: Ear canal and external ear normal. A middle ear effusion is present. Tympanic membrane is bulging. Left Ear: Ear canal and external ear normal. A middle ear effusion is present. Tympanic membrane is bulging. Nose: Mucosal edema, congestion and rhinorrhea present. Right Sinus: No maxillary sinus tenderness or frontal sinus tenderness. Left Sinus: No maxillary sinus tenderness or frontal sinus tenderness. Mouth/Throat: Pharynx: Uvula midline. Posterior oropharyngeal erythema (mild) present. No oropharyngeal exudate. Cardiovascular: Rate and Rhythm: Normal rate and regular rhythm. Heart sounds: Normal heart sounds. Pulmonary: Effort: Pulmonary effort is normal. Breath sounds: Normal breath sounds. Lymphadenopathy: Head: Right side of head: No submental, submandibular or tonsillar adenopathy. Left side of head: No submental, submandibular or tonsillar adenopathy. Cervical: No cervical adenopathy. Skin: General: Skin is warm and dry. Neurological: Mental Status: She is alert. Psychiatric: Mood and Affect: Affect normal. ASSESSMENT/PLAN: 1. URI with cough and congestion - ICD9: 465.9, ICD10: J06.9 - Discussed viral etiology and rationale for treatment. - Symptomatic treatment with prn analgesia - Supportive care with fluids and rest - 2018 CORONAVIRUS Home isolation Testing ordered Comfort measures discussed - see patient instructions. When to seek higher level of care Notified in 24-48 hours with results, available on mychart - ok to leave message Diagnosis and treatment plan were discussed and questions were answered to the patient's satisfaction. Pt acknowledged understanding of concepts and follow up plan. Specific signs and symptoms that would indicate the need for higher level of care were discussed in detail warranting prompt ER evaluation. Lizette Darling APRN.CNP documented in this encounter [facility] 11-01-2021 Evaluation + Plan note Future Scheduled TestsMA Mammo Screening Bilateral w/ Abdirizak 11/01/21 [facility] documented as of this encounter (statuses as of 05/08/2022) [facility]08-13-2012 History of Past illness Narrative* Problem Noted Date Resolved Date Acute gastritis without mention of hemorrhage 05/02/2018 Other malaise and fatigue 11/11/20072017 Breast screening, unspecified 06/23/2007 LIPOMA OTHER SKIN & SUBCUTANEOUS 06/23/2007 05/02/2018 Other seborrheic dermatitis 06/20/200704/06 Unspecified pruritic disorder 06/20/2007 Rosacea 03/20/2007 05/02/2018 Other acne 03/20/2007 05/02/2018 TELANG///CAPILLARY DIS NEC/NOS 03/20/2007 0 05/02/2018 Flushing 03/20/2007 05/02/2018 Other chronic dermatitis due to solar radiation 03/20/2007 05/02/2018 SOLAR LENGINES///DYSCHROMIA OTHER 03/20/2007 05/02/2018 XEROSIS////SEBACEOUS GLAND DIS NEC 03/20/2007 05/02/2018 Carpal tunnel syndrome 03/21/2006 8 Follow-up examination, following unspecified [facility] 02/20/2006 05/02/2018 Carpal tunnel syndrome 01/03/2006 6 Lesion of ulnar nerve 01/03/2006 03/13/2006 documented as of this encounter (statuses as of 05/08/2022) [facility] History of Past illness Narrative* Problem Noted Date Resolved Date Acute gastritis without mention of hemorrhage 05/02/2018 Other malaise and fatigue 11/11/20072017 Breast screening, unspecified 06/23/2007 LIPOMA OTHER SKIN & SUBCUTANEOUS 06/23/2007 05/02/2018 Other seborrheic dermatitis 06/20/200704/06 Unspecified pruritic disorder 06/20/2007 Rosacea 03/20/2007 05/02/2018 Other acne 03/20/2007 05/02/2018 TELANG///CAPILLARY DIS NEC/NOS 03/20/2007 0 05/02/2018 Flushing 03/20/2007 05/02/2018 Other chronic dermatitis due to solar radiation 03/20/2007 05/02/2018 SOLAR LENGINES///DYSCHROMIA OTHER 03/20/2007 05/02/2018 XEROSIS////SEBACEOUS GLAND DIS NEC 03/20/2007 05/02/2018 Carpal tunnel syndrome 03/21/2006 8 Follow-up examination, following unspecified [facility] 02/20/2006 05/02/2018 Carpal tunnel syndrome 01/03/2006 6 Lesion of ulnar nerve 01/03/2006 03/13/2006 documented as of this encounter (statuses as of 05/24/2022) [facility] History of Past illness Narrative* Problem Noted Date Diagnosed Date Resolved Date Acute gastritis without mention of hemorrhage 03/17/20 12 05/02/2018 Other malaise and fatigue 11/11/2007 Breast screening, unspecified 06/23/2007 05/02/2018 LIPOMA OTHER SKIN & SUBCUTANEOUS 06/23/2007 05/02/2018 Other seborrheic dermatitis 06/20/2007 05/02/2018 Unspecified pruritic disorder 06/20/2007 05/02/2018 Rosacea 03/20/2007 05/02/2018 Other acne 03/20/2007 05/02/2018 TELANG///CAPILLARY DIS NEC/NOS 03/20/2007 05/02/2018 Flushing 03/20/2007 05/02/2018 Other chronic dermatitis due to solar radiation 03/20/2007 05/02/2018 SOLAR LENGINES///DYSCHROMIA OTHER 03/20/2007 05/02/2018 XEROSIS////SEBACEOUS GLAND DIS NEC 03/20/2007 05/02/2018 Carpal tunnel syndrome 03/21/200605/02 Follow-up examination, follo wing unspecified surgery 02/20/2006 05/02/2018 Carpal tunnel syndrome 01/03/200603/13 Lesion of ulnar nerve 01/03/20062005 documented as of this encounter (statuses as of 03/29/2023) [facility] History of Past illness Narrative* Problem Noted Date Diagnosed Date Resolved Date Acute gastritis without mention of hemorrhage 03/17/2005/02/2018 Other malaise and fatigue 11/11/2007 Breast screening, unspecified 06/23/2007 05/02/2018 LIPOMA OTHER SKIN & SUBCUTANEOUS 06/23/2007 05/02/2018 Other seborrheic dermatitis 06/20/2007 05/02/2018 Unspecified pruritic disorder 06/20/2007 05/02/2018 Rosacea 03/20/2007 05/02/2018 Other acne 03/20/2007 05/02/2018 TELANG///CAPILLARY DIS NEC/NOS 03/20/2007 05/02/2018 Flushing 03/20/2007 05/02/2018 Other chronic dermatitis due to solar radiation 03/20/2007 05/02/2018 SOLAR LENGINES///DYSCHROMIA OTHER 03/20/2007 05/02/2018 XEROSIS////SEBACEOUS GLAND DIS NEC 03/20/2007 05/02/2018 Carpal tunnel syndrome 03/21/200605/02 Follow-up examination, follo wing unspecified surgery 02/20/2006 05/02/2018 Carpal tunnel syndrome 01/03/200603/13 Lesion of ulnar nerve 01/03/20062005 documented as of this encounter (statuses as of 04/10/2023) [facility]ments Appointment Date:03/20/2022 04:00:00 PM Scheduled Provider:VARGAS SON DO Location:[facility] Appointment Type:PC Wellness Annual Future Scheduled Tests Radiology* MA Mammo Screening Bilateral w/ Abdirizak 11/16/20 [facility] SeeMediaaluation + Plan note Future Appointments Appointment Date:12/14/2021 04:00:00 PM Scheduled Provider:VARGAS SON DO Location:[facility] Appointment Type:PC OV Appointment Date:03/20/2022 04:00:00 PM Scheduled Provider:VARGAS SON DO Location:[facility] Appointment Type:PC Wellness Annual Future Scheduled Tests Radiology* MA Mammo Screening Bilateral w/ Abdirizak 11/16/20 * MA Mammo Screening Bilateral w/ Abdirizak 11/01/21 [facility] evaluation + Plan note Future Appointments Appointment Date:08/16/2022 03:45:00 PM Scheduled Provider: Location:[facility] Appointment Type:PC Nurse Immunization Appointment Date:10/03/2022 04:00:00 PM Scheduled Provider:VARGAS SON DO Location:[facility] Appointment Type:PC OV Future Scheduled Tests Radiology* MA Mammo Screening Bilateral w/ Abdirizak 11/01/21 * XR Chest 2 Views (PA & Lateral) 06/29/22 [facility] evaluation + Plan note Future Appointments Appointment Date:02/19/2023 03:30:00 PM Scheduled Provider:VARGAS SON DO Location:[facility] Appointment Type:PC Wellness Annual Future Scheduled Tests Laboratory* Thyroid Stimulating Hormone 07/20/22 * Thyroid Stimulating Hormone 11/28/22 * Free T4 07/20/22 * Free T4 11/28/22 * Free T3 07/20/22 * Free T3 11/28/22 * Lipid Profile 11/28/22 * Complete Metabolic Panel 11/28/22 Radiology* XR Chest 2 Views (PA & Lateral) 06/29/22 [facility] evaluation + Plan note Future Appointments Appointment Date:09/11/2023 04:00:00 PM Scheduled Provider:VARGAS SON DO Location:[facility] Appointment Type: OV Appointment Date:10/02/2023 04:00:00 PM Scheduled Provider:VARGAS SON DO Location:[facility] Appointment Type: OV Future Scheduled Tests Laboratory* Thyroid Stimulating Hormone 07/03/23 * Free T4 07/03/23 * Free T3 07/03/23 [facility] Evaluation note* Diagnosis URI with cough and congestion- Primary documented in this encounter [facility] note* Diagnosis Sinobronchitis- Primary Unspecified sinusitis (chronic) documented in this encounter [facility] note* Diagnosis Allergic contact dermatitis due to plants, except food- Primary Contact dermatitis and other eczema due to plants (except food) documented in this encounter [facility] note* Diagnosis Poison sita- Primary Contact dermatitis and other eczema due to plants (except food) documented in this encounter [facility] course Narrative No data available for this section [facility] Hospital Discharge instructions No data available for this section [facility] Progress note No data available for this section [facility] Summary Purpose Family History No Family History Records FoundThere may be information available, but it has not been provided by the sender.No Family History Records Found No data available for this section No Family History Records Found Advance Directives No Advanced Directives Records FoundThere may be information available, but it has not been provided by the sender.No Advanced Directives Records FoundNo Advanced Directives Records Found Chief Complaint Chief Complaint Description Start Date left shoulder pain Preliminary chief co mplaint data, not yet signed by the author as of Instructions Instruction Description Start Date Patient advised to follow-up with Primary Care Physician for BMI management. Assessments There may be information available, but it has not been provided by the sender. Review of System There may be information available, but it has not been provided by the sender. History of Present Illness There may be information available, but it has not been provided by the sender. Health Concerns Infection Onset Date Last Indicated Resolved Time COVID-19 Rule-Out 05/07/2022 05/07/2022 Infection Onset Date Last Indicated Resolved Time COVID-19 Rule-Out 05/07/2022 05/07/2022 05/08/2022 8:04 AM EDT Additional Source Comments INFORMATION SOURCE (unrecogn ized section and content) DATE CREATED AUTHOR AUTHOR'S ORGANIZ ATION 04/10/2023 [facility] DATE CREATED AUTHOR AUTHOR'S ORGANIZ ATION 08/08/2023 [facility] ([place]) Reason for Visit (unrecogniz ed section and content) Reason Comments Sore Throat Cough, REENA ear pain x2 days Reason Comments Results Reason Comments Sinus Problem Sinus, congestion, g reen drainage, ST and cough x several weeks Reason Comments Derm Problem Left arm rash x 7 da ys Reason Comments Rash Rash-was here on 03/06 and now has new blisters Care Team (unrecognized sect ion and content) Principal Cyber Engineer Relationship Specialty Start Date End Date Vargas Son DO [address] [place] [address] PCP - General Family Medicine 09/02/18 Principal Cyber Engineer Relationship Specialty Start Date End Date Vargas Son DO [address] [place] [address] PCP - General Family Medicine 09/02/18 Principal Cyber Engineer Relationship Specialty Start Date End Date Vargas Son DO [address] [place] [address] PCP - General Family Medicine 09/02/18 Source Comments (unrecognize d section and content) In the event this informatio n is protected by the Federal Confidentiality of Alcohol and Drug Abuse Patient Records regulations: The Federal rules restrict any use of the information to criminally investigate or prosecute any alcohol or drug abuse patient.[facility] the event this information is protected by the Federal Confidentiality of Alcohol and Drug Abuse Patient Records regulations: The Federal rules restrict any use of the information to criminally investigate or prosecute any alcohol or drug abuse patient.[facility] the event this information is protected by the Federal Confidentiality of Alcohol and Drug Abuse Patient Records regulations: The Federal rules restrict any use of the information to criminally investigate or prosecute any alcohol or drug abuse patient.[facility] the event this information is protected by the Federal Confidentiality of Alcohol and Drug Abuse Patient Records regulations: The Federal rules restrict any use of the information to criminally investigate or prosecute any alcohol or drug abuse patient.[facility] the event this information is protected by the Federal Confidentiality of Alcohol and Drug Abuse Patient Records regulations: The Federal rules restrict any use of the information to criminally investigate or prosecute any alcohol or drug abuse patient.[facility] Care Team (unrecognized sect ion and content) Care Team Personnel Name: NICOL LIANG MD Position: Physician Med Service: Admitting Member Role: Machine Stuffer Automatic Address: Address: [address] [place] [address] Name: VARGAS SON DO Position: P4 Physician - Primary Care Med Service: Active Provider Member Role: Primary Care Physician Address: Address: [address] [place] [address] Care Team Related Persons Name: ANGEL PFEIFFER Address: Home [address] [place] [address] Care Team Personnel Name: NICOL LIANG MD Position: Physician Member Role: Machine Stuffer Automatic Address: Address: [address] [place] [address] Name: VARGAS SON DO Position: P4 Physician - Primary Care Member Role: Primary Care Physician Address: Address: [address] [place] [address] Care Team Related Persons Name: ANGEL PFEIFFER Address: Home [address] [place] [address] FOR RECORDS PERTAINING TO PATIENTS WHO ARE OR HAVE BEEN ENROLLED IN A CHEMICAL DEPENDENCY/SUBSTANCEABUSE PROGRAM, SOME INFORMATION MAY BE OMITTED. This clinical summary was aggregated from multiple sources. Caution should be exercised in using it in the provision of clinical care. This summary normalizes information from multiple sources, and as a consequence, information in this document may materially change the coding, format and clinical context of patient data. In addition, data may be omitted in some cases. CLINICAL DECISIONS SHOULD BE BASED ON THE PRIMARY CLINICAL RECORDS. [facility] [employer] [facility]. provides no warranty or guarantee of the accuracy or completeness of information in this document.
[2023-08-22 17:49] LABS: Absolute Lymphocyte Count 2.07 X10^3/uL (0.83-4.51); Absolute Neutrophil Count 2.8 X10^3/uL (2.0-7.7); Basophil# 0.05 X10^3/uL; Basophil% 0.9 % (0-1); Eosinophil# 0.21 X10^3/uL; Eosinophils% 3.7 % (0-5); Hemoglobin 13.3 g/dL (12.0-15.0); Lymphocyte # 2.07 X10^3/ul (0.83-4.51); Lymphocyte % 36.8 % (19-41); Mean Corp Hgb Conc 33.3 g/dL (32-36); Mean Corpuscular Hgb 29.9 pg (27.0-32.0); Mean Corpuscular Volume 89.9 fL (81-99); Mean Platelet Vol. 10.4 fl (6.2-12.0); Monocyte# 0.54 X10^3/uL; Monocyte% 9.6 % (0-10); NRBC Flagged by Analyzer 0 % (0-5); Neutrophil # 2.75 X10^3/uL (2.7-7.7); Neutrophil % 48.8 % (47-70); Platelet Count 347 K/mm3 (150-450); RBC Distribution Width CV 13.3 % (11.6-14.6); RBC Distribution Width SD 43.6 fl (35.1-43.9); Red Blood Count 4.45 M/mm3 (4.2-5.4); White Blood Count 5.6 K/mm3 (4.4-11.0)
[2023-08-22 18:30] LABS: ALB/GLOB Ratio 1.1 RATIO (0.9-2.4); AST(SGOT) 20 U/L (15-37); Alanine Aminotransfer ALT/SGPT 39 U/L (13-56); Albumin, Serum 3.8 g/dL (3.2-5.0); Alkaline Phosphatase 58 U/L (45-117); Anion Gap 5 (5-15); BUN 20 mg/dL (7-18); BUN/Creat Ratio 27.1 RATIO (10-20); Calcium,Total 9.6 mg/dL (8.5-10.1); Chloride 108 mmol/L (98-107); Creatinine, Serum 0.74 mg/dL (0.55-1.02); EST Glomerular Filtration Rate 87 mL/min (>60); Est Glom Filt Rate - Afr Amer 106 mL/min (>60); Globulin 3.4 g/dL (2.2-4.2); Glucose 96 mg/dL (74-106); Potassium 3.8 mmol/L (3.5-5.1); Protein, Total 7.2 g/dL (6.4-8.2); Sodium Level 141 mmol/L (136-145)
== END | disposition home or self-care (01) ==
LOC: MTLAB 16:47
PROVIDERS: PCP Family Medicine; Referring Provider Internal Medicine Rheumatology; Visit Provider Internal Medicine Rheumatology
DX: M06.079 Rheumatoid arthritis without rheumatoid factor, unspecified ankle and foot (principal); M79.7 Fibromyalgia; Z79.899 Other long term (current) drug therapy
CPT/HCPCS: 36415; 80053; 85025

== ENCOUNTER → 2023-10-15 | Outpatient (CLI) | payer BC, SELFPAY ==
[2023-10-15 15:47] LABS: Absolute Neutrophil Count 4.1 X10^3/uL (2.0-7.7); Basophil# 0.07 X10^3/uL; Eosinophil# 0.35 X10^3/uL; Hematocrit 37.7 % (37-47); Hemoglobin 12.4 g/dL (12.0-15.0); Mean Corp Hgb Conc 32.9 g/dL (32-36); Mean Corpuscular Hgb 29.5 pg (27.0-32.0); Mean Corpuscular Volume 89.8 fL (81-99); Mean Platelet Vol. 10.3 fl (6.2-12.0); Monocyte% 8.5 % (0-10); NRBC Flagged by Analyzer 0 % (0-5); Neutrophil % 58.1 % (47-70); Platelet Count 320 K/mm3 (150-450); RBC Distribution Width CV 12.5 % (11.6-14.6); RBC Distribution Width SD 40.8 fl (35.1-43.9); White Blood Count 7.1 K/mm3 (4.4-11.0)
== END | disposition home or self-care (01) ==
LOC: PAVLAB 15:14
PROVIDERS: PCP Family Medicine; Referring Provider Surgery; Visit Provider Surgery
DX: K92.1 Melena (principal)
CPT/HCPCS: 36415; 85025

== ENCOUNTER 2023-10-18 12:48 | Emergency (ER) | payer BC, SELFPAY ==
[2023-10-18] VITALS (30 sets, daily range): BP systolic 81–151; BP diastolic 53–82; PULSE 68–89; RESP 16–20; TEMP 36.3–37.2; O2SAT 93–100; BMI 31.6
--- NOTE | 2023-10-18 13:30 | RAD_ITS ---
STUDY: X-RAY CHEST REASON FOR EXAM: Female, 53 years old. SOB TECHNIQUE: Single AP portable view of the chest. COMPARISON: Comparison is made with prior study dated June 29, 2022. FINDINGS: The lungs are clear and expanded. There is no demonstrated pleural abnormality. Normal size heart. Normal mediastinum and avis. Normal visualized pulmonary arteries. Normal visualized aortic arch and descending thoracic aorta. Normal visualized thoracic spine. Normal visualized ribs, clavicles, and shoulders. Prior lower cervical fusion. There is no demonstrated abnormality of the visualized soft tissue structures of the upper abdomen. RAD/Chest 1 View (Portable) IMPRESSION: Normal x-ray examination of the chest. Electronically Signed: Sivakumar Avendano MD at 14:07 EDT ,
[2023-10-18 13:56] LABS: AST(SGOT) 19 U/L (15-37); Alanine Aminotransfer ALT/SGPT 25 U/L (13-56); Albumin, Serum 3.6 g/dL (3.2-5.0); Alkaline Phosphatase 59 U/L (45-117); Anion Gap 7 (5-15); BUN 13 mg/dL (7-18); BUN/Creat Ratio 17.3 RATIO (10-20); Calcium,Total 9.4 mg/dL (8.5-10.1); Chloride 106 mmol/L (98-107); Creatinine, Serum 0.75 mg/dL (0.55-1.02); EST Glomerular Filtration Rate 85 mL/min (>60); Est Glom Filt Rate - Afr Amer 103 mL/min (>60); Estimated Creatinine Clearance 104.24 ml/min; Globulin 3.5 g/dL (2.2-4.2); Glucose 100 mg/dL (74-106); Potassium 3.8 mmol/L (3.5-5.1); Protein, Total 7.1 g/dL (6.4-8.2); Sodium Level 137 mmol/L (136-145)
[2023-10-18 14:24] LABS: Absolute Lymphocyte Count 0.51 X10^3/uL (0.83-4.51); Absolute Neutrophil Count 6.5 X10^3/uL (2.0-7.7); Basophil# 0.03 X10^3/uL; Basophil% 0.4 % (0-1); Color, Urine Yellow (Yellow); Eosinophil# 0.09 X10^3/uL; Eosinophils% 1.2 % (0-5); Glucose, Dipstick Normal (Normal); Hematocrit 40.1 % (37-47); Hemoglobin 13.4 g/dL (12.0-15.0); Ketone-Dipstick Negative (Negative); Leukocyte Esterase-Dipstick 25 /ul (Negative); Lymphocyte # 0.51 X10^3/ul (0.83-4.51); Lymphocyte % 6.6 % (19-41); Mean Corp Hgb Conc 33.4 g/dL (32-36); Mean Corpuscular Hgb 29.8 pg (27.0-32.0); Mean Corpuscular Volume 89.1 fL (81-99); Mean Platelet Vol. 10.2 fl (6.2-12.0); Monocyte# 0.55 X10^3/uL; Monocyte% 7.1 % (0-10); NRBC Flagged by Analyzer 0 % (0-5); Neutrophil # 6.53 X10^3/uL (2.7-7.7); Neutrophil % 83.8 % (47-70); Nitrite-Dipstick Negative (Negative); Occult Blood-Urine Negative /ul (Negative); POSITIVE DIFFERENTIAL YES; Platelet Count 282 K/mm3 (150-450); Protein-Dipstick Negative (Negative); RBC Distribution Width CV 12.6 % (11.6-14.6); RBC Distribution Width SD 40.4 fl (35.1-43.9); Specific Gravity, Urine 1.015 (1.002-1.030); Urine Bilirubin Dipstick Negative (Negative); Urine Clarity Sl. Cloudy (Clear); Urine Urobilinogen Normal (Normal); White Blood Count 7.8 K/mm3 (4.4-11.0)
--- NOTE | 2023-10-18 14:30 | CT_ITS ---
STUDY: CT ABDOMEN AND PELVIS WITHOUT CONTRAST REASON FOR EXAM: Female, 53 years old. Right flank pain. Right flank pain. History of diverticulitis. RADIATION DOSAGE (If Supplied By Facility): CTDIvol = ( 15.96 ) mGy, DLP = ( 895.90 ) mGycm TECHNIQUE: Transaxial images were obtained from the dome of the diaphragm to the symphysis pubis without oral contrast, and without intravenous contrast. Sagittal and coronal images were reconstructed. Individualized dose optimization techniques were used for this CT. COMPARISON: Comparison is made with prior study dated April 27, 2023. FINDINGS: Minimal right basilar atelectasis. Carotid artery calcification. Normal liver. Normal gallbladder and extrahepatic biliary system. Normal spleen. Normal pancreas. Normal bilateral adrenal glands. Normal right kidney. Normal left kidney. Moderate-sized hiatal hernia. Normal small intestine. There are multiple colonic diverticula consistent with diverticulosis. The appendix is visualized and appears normal. There is scattered atherosclerotic calcification of the abdominal aorta, without a demonstrated aneurysm. Normal inferior vena cava. There is borderline retroperitoneal lymphadenopathy with enlarged nodes no greater than 10mm in the short axis diameter. Normal urinary bladder. There is absence of the uterus consistent with a prior hysterectomy. Normal abdominal wall. Normal osseous structures. CT/Abdomen/Pelvis without Cont IMPRESSION: Sigmoid diverticulosis with no evidence of acute diverticulitis at this time. Status post hysterectomy. Electronically Signed: Sivakumar Avendano MD at 15:18 EDT ,
[2023-10-18 14:42] LABS: Bacteria RARE /hpf (None Seen); Mucous, Urine 1+ /hpf (<or=2+); Red Blood Cells-Urine 0-5 SEEN /hpf (0-5); Squamous Epithelial Cells - UA 5-10 SEEN /hpf (5-10); White Blood Cells 0-5 SEEN /hpf (0-5)
[2023-10-18] MEDS: Ondansetron 4 MG/2 ML Vial IV (15:28)
[2023-10-18] MEDS: Ketorolac 15 MG/ML Vial IV (15:28)
[2023-10-18] MEDS: Dicyclomine 20 MG/2 ML Vial IM (16:28)
--- NOTE | 2023-10-18 20:48 | ED.VIS.GI ---
HPI HPI - GI History of Present Illness Chief Complaint: Shortness of Breath Narrative Narrative: 53-year-old female presenting with right-sided flank pain. States this is acute onset. She states it was sharp and radiated across the right flank into the right abdomen across the midline. Patient states that it is improved a little bit but she had associated nausea and vomiting. No history of kidney stones. No fevers or chills. Patient states that she did have a lot of dyspepsia and belching when this happened. Patient states it was hard to catch her breath due to the pain. Patient states she has a history of diverticulitis and had lots of bloody stool this week but states this is all resolved. She states she sees Dr. Roberts for this. [facility] Medical History Arthritis Arthritis, rheumatoid Back pain Depression Fibromyalgia Former smoker Gastric reflux History of diverticulitis History of hiatal hernia Hypothyroidism Thyroid disease Wears dentures Wears glasses Home Medications levothyroxine 112 mcg tablet 125 mcg PO DAILY 06/25/13 [History Last Taken 12/04/17 08:00] omeprazole 20 mg capsule,delayed release 20 mg PO PRN Indigestion 11/27/17 [History Last Taken Unknown] ibuprofen 600 mg tablet 600 mg PO Q6H PRN PRN Mild-Mod Pain (1-5/10) #30 tabs 12/04/17 [Rx Last Taken Unknown] liothyronine 5 mcg tablet 5 mcg PO DAILY 04/23/23 [History Last Taken Unknown] amoxicillin 500 mg-potassium clavulanate 125 mg tablet (Augmentin) 1 tab PO BID 2 weeks #28 tabs 10/15/23 [Rx Last Taken Unknown] folic acid 1 mg tablet 1 mg PO DAILY 10/15/23 [History Last Taken Unknown] cyclobenzaprine 10 mg tablet 10 mg PO TID PRN Muscle Spasm #20 TABLETS 10/18/23 [Rx Last Taken Unknown] dicyclomine 10 mg capsule 10 mg PO TID PRN abdominal pain #20 caps 10/18/23 [Rx Last Taken Unknown] ondansetron 4 mg disintegrating tablet 4 mg PO Q8H PRN PRN Nausea #14 tabs 10/18/23 [Rx Last Taken Unknown] Allergy/AdvReac Type Severity Reaction Status Date / Time ceftriaxone sodium Allergy Rash Verified 10/18/23 12:51 [From Rocephin] oxycodone AdvReac Nausea/Vom/ Verified 10/18/23 12:51 Diarrhea Surgical History History of carpal tunnel release History of foot operation History of neck surgery History of shoulder surgery History of tonsillectomy Hx of colonoscopy Hx of hysterectomy Social History Smoking Status: Former smoker alcohol intake: current alcohol intake frequency: holidays/special occasions only ROS ROS ED Constitutional Constitutional ED: Denies chills, fever(s) or sweats Eyes Eyes: Denies blurry vision or change in vision ENT ENT ED: Denies ear pain or sore throat Cardiovascular Cardiovascular: Denies chest pain, palpitations or racing heartbeat Respiratory/Chest Respiratory/Chest: Denies cough, dyspnea or sputum Gastrointestinal Gastrointestinal: Reports abdominal pain, nausea and vomiting; Denies constipation or diarrhea Genitourinary Genitourinary ED: Denies dysuria, hematuria or urinary frequency Musculoskeletal Musculoskeletal: Denies arthralgias, myalgias or neck pain Integumentary Denies abscess, Abrasions or rash Neurologic Neurologic: Denies headache(s), paresthesias or weakness Psychiatric Psychiatric: Denies anxiety, depression, suicidal ideation or suicidal thoughts Endocrine Endocrinology: Denies polydipsia or polyuria EXAM Physical Exam Const Vital Signs: 10/18/23 12:49 10/18/23 12:51 10/18/23 12:54 Temperature 97.4 F L 97.9 F Temperature Source Temporal Temporal Pulse Rate 89 89 Respiratory Rate 18 18 Respiratory Effort Normal Respiratory Depth Normal Respiratory Pattern Normal Blood Pressure 141/72 H 141/72 H Blood Pressure Mean 95 95 Pulse Ox 100 100 Oxygen Delivery Method Room Air Room Air Room Air 10/18/23 12:54 10/18/23 13:51 10/18/23 14:49 Temperature 98.4 F 98.4 F Temperature Source Temporal Temporal Pulse Rate 68 68 82 Respiratory Rate 20 H 20 H 20 H Respiratory Effort Respiratory Depth Respiratory Pattern Blood Pressure 115/62 115/62 117/63 Blood Pressure Mean 79 79 81 Pulse Ox 95 95 96 Oxygen Delivery Method Room Air Room Air 10/18/23 15:02 10/18/23 15:10 10/18/23 15:15 Temperature Temperature Source Pulse Rate Respiratory Rate Respiratory Effort Respiratory Depth Respiratory Pattern Blood Pressure 115/68 Blood Pressure Mean 80 Pulse Ox 97 95 95 Oxygen Delivery Method 10/18/23 15:20 10/18/23 15:30 10/18/23 15:41 Temperature Temperature Source Pulse Rate Respiratory Rate Respiratory Effort Respiratory Depth Respiratory Pattern Blood Pressure 99/55 L Blood Pressure Mean 69 Pulse Ox 95 97 97 Oxygen Delivery Method 10/18/23 15:45 10/18/23 15:50 10/18/23 16:00 Temperature Temperature Source Pulse Rate Respiratory Rate Respiratory Effort Respiratory Depth Respiratory Pattern Blood Pressure 107/53 L 118/72 Blood Pressure Mean 69 85 Pulse Ox 97 96 98 Oxygen Delivery Method 10/18/23 16:30 10/18/23 16:10 10/18/23 16:15 Temperature Temperature Source Pulse Rate 84 Respiratory Rate 16 Respiratory Effort Respiratory Depth Respiratory Pattern Blood Pressure 116/68 116/68 Blood Pressure Mean 84 82 Pulse Ox 96 95 94 Oxygen Delivery Method Room Air 10/18/23 16:20 10/18/23 16:30 10/18/23 16:31 Temperature Temperature Source Pulse Rate Respiratory Rate Respiratory Effort Respiratory Depth Respiratory Pattern Blood Pressure 81/66 L 134/73 H Blood Pressure Mean 71 91 Pulse Ox 95 96 97 Oxygen Delivery Method 10/18/23 16:40 10/18/23 16:45 10/18/23 16:50 Temperature Temperature Source Pulse Rate Respiratory Rate Respiratory Effort Respiratory Depth Respiratory Pattern Blood Pressure 135/65 H Blood Pressure Mean 84 Pulse Ox 94 94 94 Oxygen Delivery Method 10/18/23 17:00 10/18/23 17:10 10/18/23 17:15 Temperature Temperature Source Pulse Rate Respiratory Rate Respiratory Effort Respiratory Depth Respiratory Pattern Blood Pressure 135/62 H 114/59 L Blood Pressure Mean 84 75 Pulse Ox 95 96 97 Oxygen Delivery Method 10/18/23 17:20 10/18/23 17:30 10/18/23 17:40 Temperature Temperature Source Pulse Rate Respiratory Rate Respiratory Effort Respiratory Depth Respiratory Pattern Blood Pressure 109/63 Blood Pressure Mean 76 Pulse Ox 95 96 94 Oxygen Delivery Method 10/18/23 17:45 10/18/23 17:57 Temperature 98.9 F Temperature Source Pulse Rate 85 Respiratory Rate 16 Respiratory Effort Respiratory Depth Respiratory Pattern Blood Pressure 151/82 H 151/82 H Blood Pressure Mean 102 105 Pulse Ox 93 98 Oxygen Delivery Method Positive well nourished Constitutional Narrative: Appears to be in pain General Appearance ED: NAD; Negative for pallor HEENT Reports moist mucous membranes normocephalic and atraumatic Eyes PERRL Resp normal respiratory effort Auscultation: Negative for rales Cardio regular rate and regular rhythm GI non-tender and non-distended GI Narrative: Negative Rodriguez sign. Back/Spine no CVA tenderness Neuro CN's II-XII intact bilaterally Sensorium / Orientation: alert Psych mental status grossly normal Skin General Skin Exam: Negative for jaundice or pallor MDM MDM MDM Narrative Medical decision making narrative: Patient presenting right-sided flank pain. No history of kidney stones. Differential includes UTI, kidney stone, pyelonephritis, dehydration, electrolyte normalities. Patient negative Rodriguez sign have low suspicion for gallstones or acute cholecystitis. CBC was obtained to assess white blood cell count, hemoglobin, platelets. CMP to assess liver function, renal function, electrolytes, glucose. Urinalysis to assess for UTI. After discussion patient does not want narcotic pain medication she states that Toradol would be helpful and she was given Zofran with this. She was also given IV fluids. On reevaluation her lab work was discussed with her and is normal. She had a CT of the abdomen pelvis without contrast to rule out kidney stone and this was also negative. Since the patient complained of shortness of breath she did have a chest x-ray which on my interpretation shows no acute process. Radiologist interprets this and agrees. At this point patient still having a little bit of discomfort and she was given a shot of Bentyl IM and she states she felt better after this but not all the way down to 0. Counseled patient that her workup was ultimately negative. She question whether she may be have an abdominal wall strain. She request muscle relaxers for pain. She was also given Bentyl and Zofran for home. Return precautions were discussed. Impression: 1. Abdominal pain 2. Nausea/vomiting Lab Data Attestation: I reviewed the patient's lab results. Labs: Laboratory Results - last 24 hr 10/18/23 10/18/23 10/18/23 13:20 13:20 14:15 WBC Cancelled 7.8 Corrected WBC Cancelled RBC Cancelled 4.50 Hgb Cancelled 13.4 Hct Cancelled 40.1 MCV Cancelled 89.1 MCH Cancelled 29.8 MCHC Cancelled 33.4 RDW Std Deviation Cancelled 40.4 RDW Coeff of Jyothi Cancelled 12.6 Plt Count Cancelled 282 MPV Cancelled 10.2 Immature Gran % (Auto) Cancelled 0.900 Neut % (Auto) Cancelled 83.8 H Lymph % (Auto) Cancelled 6.6 L [place] % (Auto) Cancelled 7.1 Eos % (Auto) Cancelled 1.2 Baso % (Auto) Cancelled 0.4 Absolute Neuts (auto) Cancelled 6.5 Absolute Lymphs (auto) Cancelled 0.51 L Total Counted Cancelled Neutrophils % (Manual) Cancelled Band Neutrophils % Cancelled Lymphocytes % (Manual) Cancelled Monocytes % (Manual) Cancelled Eosinophils % (Manual) Cancelled Basophils % (Manual) Cancelled Metamyelocytes % Cancelled Myelocytes % Cancelled Promyelocytes % Cancelled Blast Cells % Cancelled Plasma Cell % (Manual) Cancelled Other Cells % Cancelled Nucleated RBC % Cancelled 0 Nucleated RBCs/100 WBC Cancelled Differential Comment Cancelled Diff Path Review Cancelled Hypersegmented Neuts Cancelled Atypical Lymphocytes Cancelled Reactive Lymphocytes Cancelled Smudge Cells Cancelled Toxic Granulation Cancelled Toxic Vacuolation Cancelled Dohle Bodies Cancelled Michelle Rods Cancelled Platelet Estimate Cancelled Plt Morphology Comment Cancelled RBC Morphology Cancelled Cancelled Polychromasia Cancelled Hypochromasia Cancelled Basophilic Stippling Cancelled Anisocytosis Cancelled Microcytosis Cancelled Macrocytosis Cancelled Spherocytes Cancelled Sickle Cells Cancelled Target Cells Cancelled Tear Drop Cells Cancelled Ovalocytes Cancelled Stomatocytes Cancelled [place] Bodies Cancelled Oxbow Cells Cancelled Bite Cells Cancelled Crenated Cell Cancelled Acanthocytes (Spur) Cancelled Rouleaux Cancelled Schistocytes Cancelled Sodium 137 Potassium 3.8 Chloride 106 Carbon Dioxide 24.0 Anion Gap 7 BUN 13 Creatinine 0.75 Estim Creat Clear Calc 104.24 Est GFR (MDRD) Af Amer 103 Est GFR (MDRD) Non-Af 85 BUN/Creatinine Ratio 17.3 Glucose 100 Calcium 9.4 Total Bilirubin 0.60 AST 19 ALT 25 Alkaline Phosphatase 59 Total Protein 7.1 Albumin 3.6 Globulin 3.5 Albumin/Globulin Ratio 1.0 Urine Color Yellow Urine Clarity Sl. Cloudy Urine pH 8.0 Ur Specific [place] 1.015 Urine Protein Negative Urine Glucose (UA) Normal Urine Ketones Negative Urine Occult Blood Negative Urine Nitrite Negative Urine Bilirubin Negative Urine Urobilinogen Normal Ur Leukocyte Esterase 25 H Urine RBC 0-5 SEEN Urine WBC 0-5 SEEN Ur Squamous Epith Cells 5-10 SEEN Urine Bacteria RARE Urine Mucus 1+ Radiography Diagnostic Testing: Clinical Impression(s) from Imaging Studies Chest X-Ray 10/18/23 13:30 IMPRESSION: Normal x-ray examination of the chest. Electronically Signed: Sivakumar Avendano MD at 14:07 EDT , Abdomen/Pelvis CT 10/18/23 14:30 IMPRESSION: Sigmoid diverticulosis with no evidence of acute diverticulitis at this time. Status post hysterectomy. Electronically Signed: Sivakumar Avendano MD at 15:18 EDT , Discharge Plan Triage Chief Complaint: Shortness of Breath ED Provider: Osei Lugo Dx/Rx/DC Orders Clinical Impression: Abdominal pain Instructions: ED Abdominal Pain Unkn Cause Fem Prescriptions: New ondansetron 4 mg tablet,disintegrating 4 mg PO Q8H PRN PRN (Reason: Nausea) Qty: 14 0RF dicyclomine 10 mg capsule 10 mg PO TID PRN (Reason: abdominal pain) Qty: 20 0RF cyclobenzaprine 10 mg tablet 10 mg PO TID PRN (Reason: Muscle Spasm) Qty: 20 0RF No Action folic acid 1 mg tablet 1 mg PO DAILY amoxicillin-pot clavulanate [Augmentin] 500-125 mg tablet 1 tab PO BID 14 Days Qty: 28 0RF levothyroxine 112 MCG tablet 125 mcg PO DAILY omeprazole 20 MG capsule,delayed release(DR/EC) 20 mg PO PRN ibuprofen 600 MG tablet 600 mg PO Q6H PRN PRN (Reason: Mild-Mod Pain (1-5/10)) Qty: 30 0RF liothyronine 5 mcg tablet 5 mcg PO DAILY Patient Comments: TAKE 1 TABLET BY MOUTH DAILY take with levothoroxine Primary Care Provider: Dinora Serra Referrals: Dinora Serra DO [Primary Care Provider] - Disposition Disposition: Home, Self Care Discharge Date/Time: 10/18/23 17:59
== END 2023-10-18 17:59 | disposition home or self-care (01) ==
PROVIDERS: Emergency Provider Student in an Organized Health Care Education/Training Program; PCP Family Medicine; Visit Provider Student in an Organized Health Care Education/Training Program
DX: R06.02 Shortness of breath (principal); R11.2 Nausea with vomiting, unspecified; Z87.891 Personal history of nicotine dependence; R10.9 Unspecified abdominal pain; M19.90 Unspecified osteoarthritis, unspecified site; M79.7 Fibromyalgia; K21.9 Gastro-esophageal reflux disease without esophagitis; E03.9 Hypothyroidism, unspecified; Z79.890 Hormone replacement therapy; Z79.899 Other long term (current) drug therapy
CPT/HCPCS: 71045; 74176; 80053; 81001; 85025; 96372; 96374; 96375; 99283; A4216; J2405

== ENCOUNTER → 2023-11-14 | Outpatient (CLI) | payer BC, SELFPAY ==
[2023-11-14 17:51] LABS: Absolute Lymphocyte Count 1.83 X10^3/uL (0.83-4.51); Absolute Neutrophil Count 2.8 X10^3/uL (2.0-7.7); Basophil# 0.04 X10^3/uL; Basophil% 0.8 % (0-1); Eosinophil# 0.15 X10^3/uL; Eosinophils% 2.8 % (0-5); Hematocrit 38.5 % (37-47); Hemoglobin 12.8 g/dL (12.0-15.0); Lymphocyte # 1.83 X10^3/ul (0.83-4.51); Lymphocyte % 34.6 % (19-41); Mean Corp Hgb Conc 33.2 g/dL (32-36); Mean Corpuscular Hgb 30.3 pg (27.0-32.0); Mean Platelet Vol. 10.6 fl (6.2-12.0); Monocyte# 0.49 X10^3/uL; Monocyte% 9.3 % (0-10); NRBC Flagged by Analyzer 0 % (0-5); Neutrophil # 2.76 X10^3/uL (2.7-7.7); Neutrophil % 52.1 % (47-70); Platelet Count 298 K/mm3 (150-450); RBC Distribution Width CV 13.2 % (11.6-14.6); RBC Distribution Width SD 44.1 fl (35.1-43.9); Red Blood Count 4.23 M/mm3 (4.2-5.4); White Blood Count 5.3 K/mm3 (4.4-11.0)
[2023-11-14 18:33] LABS: ALB/GLOB Ratio 1.1 RATIO (0.9-2.4); AST(SGOT) 18 U/L (15-37); Alanine Aminotransfer ALT/SGPT 30 U/L (13-56); Albumin, Serum 3.7 g/dL (3.2-5.0); Alkaline Phosphatase 75 U/L (45-117); Anion Gap 2 (5-15); BUN 15 mg/dL (7-18); BUN/Creat Ratio 16.1 RATIO (10-20); Calcium,Total 9.1 mg/dL (8.5-10.1); Chloride 109 mmol/L (98-107); Creatinine, Serum 0.93 mg/dL (0.55-1.02); EST Glomerular Filtration Rate 67 mL/min (>60); Est Glom Filt Rate - Afr Amer 81 mL/min (>60); Globulin 3.3 g/dL (2.2-4.2); Glucose 95 mg/dL (74-106); Potassium 3.9 mmol/L (3.5-5.1); Sodium Level 139 mmol/L (136-145)
== END | disposition home or self-care (01) ==
LOC: MTLAB 14:56
PROVIDERS: PCP Family Medicine; Referring Provider Internal Medicine Rheumatology; Visit Provider Internal Medicine Rheumatology
DX: M06.079 Rheumatoid arthritis without rheumatoid factor, unspecified ankle and foot (principal); M79.7 Fibromyalgia; M19.041 Primary osteoarthritis, right hand; Z79.899 Other long term (current) drug therapy
CPT/HCPCS: 36415; 80053; 85025

== ENCOUNTER 2024-01-01 11:56 | Emergency (ER) | payer BC, SELFPAY ==
[2024-01-01 11:57] VITALS: BP 136/96; PULSE 79; RESP 16; TEMP 35.8; O2SAT 99; BMI 32.5
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
--- NOTE | 2024-01-01 12:27 | RAD_ITS ---
STUDY: X-RAY - LEFT ANKLE REASON FOR EXAM: Female, 53 years old. Injury/Pain TECHNIQUE: 3 view(s) of the ankle. COMPARISON: None. FINDINGS: Normal visualized distal tibia and fibula. Normal medial and lateral malleoli. Normal tibiotalar articulation and ankle mortise. Small plantar spur. Evidence of prior nail/screw fixation of the base of the fifth metatarsal. The visualized subtalar, talonavicular, calcaneocuboid and tarsal articulations are normal. Lateral soft tissue swelling. RAD/Ankle min 3 Views IMPRESSION: Lateral soft tissue swelling. Prior nail/screw fixation at the base of the fifth metatarsal. Electronically Signed: Sivakumar Avendano MD at 12:42 EDT ,
[2024-01-01 12:56] VITALS: BP 136/80; PULSE 81; RESP 18; TEMP 36; O2SAT 98
== END 2024-01-01 12:59 | disposition home or self-care (01) ==
PROVIDERS: Emergency Provider Emergency Medicine; PCP Family Medicine; Visit Provider Emergency Medicine
DX: S93.402A Sprain of unspecified ligament of left ankle, initial encounter (principal); M06.9 Rheumatoid arthritis, unspecified; V89.2XXA Person injured in unspecified motor-vehicle accident, traffic, initial encounter; R51.9 Headache, unspecified; E03.9 Hypothyroidism, unspecified; Z79.890 Hormone replacement therapy; Z79.899 Other long term (current) drug therapy; Z87.891 Personal history of nicotine dependence
CPT/HCPCS: 73610; 99282

== ENCOUNTER 2024-01-20 07:49 | Day surgery (SDC) | payer BC, SELFPAY ==
[2024-01-20] VITALS (9 sets, daily range): BP systolic 112–137; BP diastolic 70–95; PULSE 57–70; RESP 16; TEMP 36.6–36.8; O2SAT 95–100; BMI 32.8
--- NOTE | 2024-01-20 08:40 | PCM.PRE.AN2 ---
ASA Classification* ASA Classification ASA Classification: 2 Assessment & Plan Anesthesia* Anesthesia Assessment Anesthesia Assessment: Discussed sedation and/or anesthesia options, risks, benefits, and alternatives with patient/parents/legal guardian/POA. Questions invited. The patient/parents/legal guardian/POA seems to understand and agrees to proceed with anesthesia plan. Reviewed the physical assessment, medical history, allergy history and patient home medications list prior to surgery/procedure/anesthetic and documented any changes. Performed airway and anesthesia risk assessments. 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 When Was Last Pacemaker Check QUESTION #4 FULL TEXT: You/Your Family Experience fever (hyperthermia) with Anesthesia Last Oral Intake Last Oral intake: Last Oral Intake NPO since 00:00 01/20/24 08:30 Meds taken in AM with sips of water? Meds patient instructed to take am of surgery PONV PONV - restaurant front manager: PONV - restaurant front manager Female HX of Motion Sickness HX of N/V After Surgery Non-Smoker Duration of Surgery greater than 60 minutes Number of Risk Factors PONV Score Height & Weight Height & Weight: Anesthesia: Height & Weight Height 5 ft 8 in 01/20/24 08:30 Weight: 98.1 kg 01/20/24 08:30 Body Mass Index (BMI) 32.8 01/20/24 08:30 Respiratory Assessment Respiratory Assessment - restaurant front manager: Respiratory Tract Infection Hx - restaurant front manager Hx Respiratory Tract Infection No 06/21/23 15:35 STOP Sleep Apnea STOP Sleep Apnea - restaurant front manager: STOP Sleep Apnea - restaurant front manager Hx Hypertension No 06/21/23 15:35 Hx Sleep Apnea Yes 06/21/23 15:35 CPAP Yes: Does not use anymore 06/24/23 10:10 BIPAP No 06/21/23 15:35 Do you snore loudly (louder than talking or can be heard Do you often feel tired/ fatigued/ sleepy during daytime? Has anyone observed you stop breathing during sleep? STOP Results QUESTION #5 FULL TEXT : Do you snore loudly (louder than talking or can be heard through closed doors)? 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 Specify any problems Hx of Preganancy in last 3 Months Nurse Filling Out Transfusion & Questions: Date: Time: Patient unable to answer at this time (ie. confused, unrespo /Reproduction History /Reproductive History - restaurant front manager: /Reproductive Hx- restaurant front manager Hx Now Gestational Age (in weeks): EDC: Hx Hx Para Hx Section SAB No 06/21/23 15:35 Active Medications Active Medications: Current Medications Generic Name Dose Route Start Last Admin Trade Name Freq PRN Reason Stop Dose Admin Lactated Ringer's 1,000 mls @ 15 mls/hr 01/20/24 08:15 IV .Q48H [facility] Anesthesia Focused Assessment* Temperature: 98 F Pulse Rate: 59 Blood Pressure: 132/95 Respiratory Rate: 16 Pulse Ox: 95 Airway Assessment Mouth opens: >3 cm Mallampati Score: II Focused Labs Anesthesia Preop lab: CBC WBC 5.3 K/mm3 (4.4-11.0) 11/14/23 14:57 RBC 4.23 M/mm3 (4.2-5.4) 11/14/23 14:57 Hgb 12.8 g/dL (12.0-15.0) 11/14/23 14:57 Hct 38.5 % (37-47) 11/14/23 14:57 Plt Count 298 K/mm3 (150-450) 11/14/23 14:57 CHEMISTRY Potassium 3.9 mmol/L (3.5-5.1) 11/14/23 14:57 Sodium 139 mmol/L (136-145) 11/14/23 14:57 Magnesium 2.0 mg/dL (1.6-2.6) 04/25/23 06:25 Phosphorus 2.5 mg/dL (2.5-4.9) 04/25/23 06:25 BUN 15 mg/dL (7-18) 11/14/23 14:57 Creatinine 0.93 mg/dL (0.55-1.02) 11/14/23 14:57 Glucose 95 mg/dL (74-106) 11/14/23 14:57 TSH 0.62 uIU/mL (0.358-3.74) 11/28/17 15:46 COAG PT 13.7 SECONDS (11.7-14.9) 11/28/17 15:46 Review of Systems (Anesthesia) ROS Narrative System reviewed and no additional complaints, except as documented. [facility] Medical History (Updated 01/09/24 @ 00:01 by Francesca Booker) Wears dentures Wears glasses Depression Thyroid disease Back pain History of hiatal hernia History of diverticulitis Gastric reflux Former smoker Arthritis, rheumatoid Fibromyalgia Hypothyroidism Arthritis Home Medications ?Medication ?Instructions ?Recorded ?Last Taken ?Type levothyroxine 112 mcg tablet 125 mcg PO DAILY 06/25/13 01/20/24 05:30 History omeprazole 20 mg capsule,delayed 20 mg PO PRN Indigestion 11/27/17 Unknown History release ibuprofen 600 mg tablet 600 mg PO Q6H PRN PRN Mild-Mod 12/04/17 Unknown Rx Pain (1-5/10) #30 tabs liothyronine 5 mcg tablet 5 mcg PO DAILY 04/23/23 Unknown History folic acid 1 mg tablet 1 mg PO DAILY 10/15/23 Unknown History cyclobenzaprine 10 mg tablet 10 mg PO TID PRN Muscle Spasm #20 10/18/23 Unknown Rx TABLETS Allergy/AdvReac Type Severity Reaction Status Date / Time ceftriaxone sodium (From Allergy Rash Verified 01/20/24 08:29 Rocephin) oxycodone AdvReac Nausea/Vom/ Verified 01/20/24 08:29 Diarrhea Surgical History (Updated 01/01/24 @ 12:[address] Hang Aldana DO) Hx of tubal ligation Hx of bilateral breast reduction surgery Hx of hysterectomy Hx of colonoscopy History of tonsillectomy History of shoulder surgery History of neck surgery History of foot operation History of carpal tunnel release Social History Smoking Status: Former smoker alcohol intake: current alcohol intake frequency: holidays/special occasions only
[2024-01-20] MEDS: Lactated Ringers 1,000 ML 15 ML IV (08:46)
--- NOTE | 2024-01-20 09:32 | RAD_ITS ---
PROCEDURE: Epidural steroid injection DATE OF EXAMINATION: 01/20/2024 INDICATION: Female, 53 years old. Low back pain PHYSICIAN: Dr. Xiao FLUOROSCOPY TIME (if supplied): (5.8) seconds RADIATION DOSAGE (If Supplied By Facility): CTDIvol = ( 3.9 ) mGy, DLP = ( ) mGycm 2 fluoroscopic images obtained CONSENT: The risks, benefits and alternatives to the procedure were explained to the patient, and the patient agreed to the procedure and signed the consent. 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 PROCEDURE/TECHNIQUE: (All elements of maximal sterile barrier technique followed, including US elements as applicable) The risks, benefits, and alternatives to the procedure were explained to patient, and the patient agreed to the procedure and signed a consent form for the procedure. A timeout was performed to confirm the patient''s identity, the type of procedure, to be performed and the site of entry. After informed consent was obtained, patient was prepped for right-sided transforaminal epidural steroid injection at L4, L5 and S1. Limited C-arm films do not show evidence of complication during steroid injection. RAD/Lumbar Spine 2 or 3 Views IMPRESSION: No radiographic evidence of intraoperative complications during epidural steroid injection. Electronically Signed: Grayson Mccarthy MD at 14:48 EDT ,
[2024-01-20] MEDS: MethylPREDNISolone Acetate 80 MG/ML Vial (09:38)
[2024-01-20] MEDS: Lidocaine 1% (5 ml sdv) 5 ML Vial (09:39)
--- NOTE | 2024-01-20 09:47 | PCM.POST.ANE ---
Anesthesia: Postop Eval I Current Vital Signs Temperature: 98.1 F Pulse Rate: 70 Blood Pressure: 118/70 Respiratory Rate: 16 Pulse Ox: 97 Oxygen Delivery Method: Room Air Assessment Airway patent: Yes Spontaneous unlabored respirations: Yes Mental status: Awake and Calm nausea: No Vomiting: No Anesthesia Complication: No Fluid Hydration Crystalloid volume administer (ml): 400 Total IV fluid infused: 400 Progress Note Anesthesia document: Postop Eval 1 completed: Yes
--- NOTE | 2024-01-20 11:35 | OP.PCM_ITS ---
Report of Operation Date of Procedure: 01/20/24 Description of Surgical Findings:: PREOPERATIVE DIAGNOSIS: Lumbosacral radiculopathy, lumbosacral spinal stenosis, lumbosacral degenerative disc disease POSTOPERATIVE DIAGNOSIS: Lumbosacral radiculopathy, lumbosacral spinal stenosis, lumbosacral degenerative disc disease PROCEDURE PERFORMED: Right sided lumbar transforaminal epidural steroid injectio n, L4-5 and L5-S1. ANESTHESIA: MAC BLOOD LOSS: Minimal COMPLICATIONS: None DESCRIPTION OF PROCEDURE: History and physical of today was reviewed. Risks an d benefits of the procedure were explained. The patient understood and agreed to proceed. Informed consent was obtained. IV inserted per routine protocol. The patient was taken to the operating room and placed in the prone position with a pillow positioned underneath the abdomen. The right side of the lower back was prepped and draped in a sterile fashion using iodine x3. Under fluoroscopy guidance on oblique view, the L4 through S1 vertebral bodies were visualized. The skin and subcutaneous tissue was anesthetized with approximately 5 mL of 1% lidocaine using a 25-gauge regular needle. Under direct visualization with fluoroscopy at approximately 35-degree angle, starting on the right L4, ending on the right L5, using a 22-gauge 5-inch spinal needle, the needle was advanced via the skin. The tip of the needle was maneuvered and directed towards the inferior and medial gutter of the transverse process at the superiormost aspect of the neural foramen. Once the tip of the needle was at the vicinity of the foramen, after negative aspiration for blood or CSF, a total of 1 mL of contrast was injected in divided doses between both levels to confirm correct placement of the needle as well as medial spread. The confirmation was obtained on AP as well as lateral view. After repeated negative aspiration and confirmation on AP as well as lateral view, a total of 6 mL of preservative-free 0.25% Marcaine with 80 mg of Depo-Medrol was injected in divided doses between both levels. The needles were then removed intact. The patient experienced no sign or symptoms of intrathecal or intravascular injection. The patient experienced no paresthesia. The procedure was completed without any apparent difficulty or any complications. The patient appeared to tolerate it well. Assessment and plan: This is a 53-year-old female with lumbosacral radiculopathy, lumbosacral spinal stenosis, lumbosacral degenerative disc disease status post right-sided lumbar transforaminal epidural steroid injection L4-5, L5-S1, patient will continue current medications, patient will follow in approximately 2 weeks for reevaluation.
--- NOTE | 2024-01-20 12:37 | POSTOPAN2_ITS ---
Anesthesia Postop Eval I Sum Postop Eval Completion status Anesthesia document: Postop Eval 1 completed: Yes Anesthesia Postop Eval I Summary Anesthesia Postop Eval I Summary: Anesthesia Postop Eval I: Assessment Summary Airway patent Yes 01/20/24 09:48 ENDOSCOPY [email or web address] Spontaneous unlabored Yes 01/20/24 09:48 ENDOSCOPY [email or web address] respirations Mental status Awake,Calm 01/20/24 09:48 ENDOSCOPY [email or web address] nausea No 01/20/24 09:48 ENDOSCOPY [email or web address] Vomiting No 01/20/24 09:48 ENDOSCOPY [email or web address] Anesthesia Postop Eval I: Fluid Summary Crystalloid volume administer 400 01/20/24 09:48 ENDOSCOPY [email or web address] (ml) Colloids volume administered ( ml) Blood Product volume administered (ml) Total IV fluid infused 400 01/20/24 09:48 ENDOSCOPY [email or web address] Anesthesia Postop Eval I: Summary Notes Anesthesia Complication No 01/20/24 09:48 ENDOSCOPY [email or web address] Anesthesia Complication Comment: Post-operative progress note Anesthesia: Postop Eval II Evaluation Mental status: Awake Pain Level: 0 nausea: No Vomiting: No Complications Anesthesia Complication: No
--- NOTE | 2024-01-20 12:37 | PCM.POSTANE2 ---
Anesthesia Postop Eval I Sum Postop Eval Completion status Anesthesia document: Postop Eval 1 completed: Yes Anesthesia Postop Eval I Summary Anesthesia Postop Eval I Summary: Anesthesia Postop Eval I: Assessment Summary Airway patent Yes 01/20/24 09:48 [email or web address] Spontaneous unlabored Yes 01/20/24 09:48 [email or web address] [email or web address] respirations Mental status Awake,Calm 01/20/24 09:48 [email or web address] [email or web address] nausea No 01/20/24 09:48 [email or web address] [email or web address] Vomiting No 01/20/24 09:48 [email or web address] [email or web address] Anesthesia Postop Eval I: Fluid Summary Crystalloid volume administer 400 01/20/24 09:48 [email or web address] (ml) Colloids volume administered ( ml) Blood Product volume administered (ml) Total IV fluid infused 400 01/20/24 09:48 [email or web address] Anesthesia Postop Eval I: Summary Notes Anesthesia Complication No 01/20/24 09:48 [email or web address] Anesthesia Complication Comment: Post-operative progress note Anesthesia: Postop Eval II Evaluation Mental status: Awake Pain Level: 0 nausea: No Vomiting: No Complications Anesthesia Complication: No
== END 2024-01-20 10:45 | disposition home or self-care (01) ==
LOC: SDC 07:56 → AC 07:56
PROVIDERS: PCP Family Medicine; Referring Provider Anesthesiology Pain Medicine; Visit Provider Anesthesiology Pain Medicine
PROC: 3E0S3BZ Introduction of Anesthetic Agent into Epidural Space, Percutaneous Approach (ICD-10-PCS; CPT 64484; principal; 2024-01-20 08:55)
DX: M51.17 Intervertebral disc disorders with radiculopathy, lumbosacral region (principal); M48.07 Spinal stenosis, lumbosacral region; E03.9 Hypothyroidism, unspecified; K21.9 Gastro-esophageal reflux disease without esophagitis; Z79.899 Other long term (current) drug therapy; Z87.891 Personal history of nicotine dependence
CPT/HCPCS: 64484; 01992; 64483; 72100; J7120

== ENCOUNTER → 2024-02-07 | Outpatient (CLI) | payer BC, SELFPAY ==
[2024-02-07 12:08] LABS: Absolute Lymphocyte Count 1.78 X10^3/uL (0.83-4.51); Absolute Neutrophil Count 2.5 X10^3/uL (2.0-7.7); Basophil# 0.05 X10^3/uL; Eosinophils% 2.1 % (0-5); Hematocrit 40.1 % (37-47); Hemoglobin 13.1 g/dL (12.0-15.0); Lymphocyte # 1.78 X10^3/ul (0.83-4.51); Lymphocyte % 36.9 % (19-41); Mean Corp Hgb Conc 32.7 g/dL (32-36); Mean Corpuscular Hgb 29.6 pg (27.0-32.0); Mean Corpuscular Volume 90.7 fL (81-99); Mean Platelet Vol. 10.8 fl (6.2-12.0); Monocyte# 0.37 X10^3/uL; Monocyte% 7.7 % (0-10); NRBC Flagged by Analyzer 0 % (0-5); Neutrophil % 51.7 % (47-70); Platelet Count 282 K/mm3 (150-450); RBC Distribution Width CV 12.9 % (11.6-14.6); RBC Distribution Width SD 42.5 fl (35.1-43.9); Red Blood Count 4.42 M/mm3 (4.2-5.4); White Blood Count 4.8 K/mm3 (4.4-11.0)
[2024-02-07 12:55] LABS: AST(SGOT) 17 U/L (15-37); Alanine Aminotransfer ALT/SGPT 33 U/L (13-56); Albumin, Serum 3.5 g/dL (3.2-5.0); Alkaline Phosphatase 67 U/L (45-117); Anion Gap 7 (5-15); BUN 11 mg/dL (7-18); BUN/Creat Ratio 14.2 RATIO (10-20); Calcium,Total 9.4 mg/dL (8.5-10.1); Chloride 107 mmol/L (98-107); Creatinine, Serum 0.77 mg/dL (0.55-1.02); EST Glomerular Filtration Rate 83 mL/min (>60); Est Glom Filt Rate - Afr Amer 100 mL/min (>60); Globulin 3.4 g/dL (2.2-4.2); Glucose 104 mg/dL (74-106); Potassium 3.8 mmol/L (3.5-5.1); Protein, Total 6.9 g/dL (6.4-8.2); Sodium Level 140 mmol/L (136-145)
== END | disposition home or self-care (01) ==
LOC: MTLAB 10:35
PROVIDERS: PCP Family Medicine; Referring Provider Internal Medicine Rheumatology; Visit Provider Internal Medicine Rheumatology
DX: M06.079 Rheumatoid arthritis without rheumatoid factor, unspecified ankle and foot (principal); Z79.899 Other long term (current) drug therapy; M79.7 Fibromyalgia
CPT/HCPCS: 36415; 80053; 85025

== ENCOUNTER → 2024-04-15 | Outpatient (CLI) | payer BC, SELFPAY ==
[2024-04-15 09:00] LABS: Absolute Lymphocyte Count 1.69 X10^3/uL (0.83-4.51); Absolute Neutrophil Count 2.7 X10^3/uL (2.0-7.7); Basophil# 0.06 X10^3/uL; Basophil% 1.2 % (0-1); Eosinophil# 0.17 X10^3/uL; Eosinophils% 3.3 % (0-5); Hematocrit 39.7 % (37-47); Hemoglobin 13.3 g/dL (12.0-15.0); Lymphocyte # 1.69 X10^3/ul (0.83-4.51); Lymphocyte % 33.2 % (19-41); Mean Corp Hgb Conc 33.5 g/dL (32-36); Mean Corpuscular Hgb 30.7 pg (27.0-32.0); Mean Corpuscular Volume 91.7 fL (81-99); Monocyte# 0.45 X10^3/uL; Monocyte% 8.8 % (0-10); NRBC Flagged by Analyzer 0 % (0-5); Neutrophil # 2.71 X10^3/uL (2.7-7.7); Neutrophil % 53.3 % (47-70); Platelet Count 282 K/mm3 (150-450); RBC Distribution Width CV 12.7 % (11.6-14.6); RBC Distribution Width SD 42.4 fl (35.1-43.9); Red Blood Count 4.33 M/mm3 (4.2-5.4); White Blood Count 5.1 K/mm3 (4.4-11.0)
== END | disposition home or self-care (01) ==
PROVIDERS: PCP Family Medicine; Referring Provider Surgery; Visit Provider Surgery
DX: R10.32 Left lower quadrant pain (principal); R19.7 Diarrhea, unspecified
CPT/HCPCS: 36415; 83630; 85025; 87493; 87506

== ENCOUNTER → 2024-04-16 | Outpatient (CLI) | payer BC, SELFPAY ==
--- NOTE | 2024-04-16 15:45 | CT_ITS ---
EXAM: CT ABDOMEN AND PELVIS WITH INTRAVENOUS CONTRAST CLINICAL INDICATION: abdominal pain/diarrhea TECHNIQUE: Helically acquired images were obtained of the abdomen and pelvis with intravenous contrast. This CT exam was performed using one or more of the following dose reduction techniques: automated exposure control, adjustment of the mA and/or kV according to patient size, and/or use of iterative reconstruction technique. CONTRAST: Oral and amp;amp; IV Gastrografin and amp;amp; 100mL Isovue-370 RADIATION DOSE: CTDIvol = 20.42 mGy, DLP = 1318.20 mGy-cm. COMPARISON: October 18, 2023. FINDINGS: LOWER THORAX: Slight hiatal hernia. Lung bases are clear. No cardiomegaly. No significant pericardial effusion. ABDOMEN: LIVER: A few tiny hepatic calcified granulomas are again noted. GALLBLADDER AND BILE DUCTS: Unremarkable. No calcified gallstones. No gallbladder distention or wall edema. No intra- or extrahepatic biliary ductal dilation. PANCREAS: Unremarkable. No focal cystic or solid mass. SPLEEN: Unremarkable. Normal size without focal cystic or solid mass. ADRENALS: Unremarkable. No nodules. KIDNEYS AND URETERS: See below. STOMACH AND BOWEL: Oral contrast reached most distal small bowel loops, no evidence of obstruction. Mild gas and stool in the proximal half of the colon. Mild descending colon and sigmoid diverticulosis, no evidence of acute diverticulitis. PELVIS: APPENDIX: Normal retrocecal appendix. BLADDER: Unremarkable. REPRODUCTIVE: Hysterectomy again noted. ABDOMEN and PELVIS: INTRAPERITONEAL SPACE: Unremarkable. No ascites or other fluid collection. No free air. BONES/JOINTS: Unremarkable. No suspicious lytic or blastic abnormality. SOFT TISSUES: Unremarkable. No discrete abdominal or pelvic wall hernia. VASCULATURE: Phleboliths in the pelvis, no ureter stone. Abdominal aorta is non-dilated. LYMPH NODES: Unremarkable. No enlarged lymph nodes. CT/Abdomen/Pelvis WITH Contrast IMPRESSION: 1. No specific acute abnormality. 2. Small hiatal hernia. Mild diverticulosis. Hysterectomy. Electronically Signed: Lucinda White MD at 19:19 EDT ,
== END | disposition home or self-care (01) ==
LOC: CT 15:44
PROVIDERS: PCP Family Medicine; Referring Provider Surgery; Visit Provider Surgery
DX: R19.7 Diarrhea, unspecified (principal); R10.32 Left lower quadrant pain
CPT/HCPCS: 74177; Q9967; A4216

== ENCOUNTER → 2024-04-17 | Outpatient (CLI) | payer BC, SELFPAY | END | disposition home or self-care (01) | PROVIDERS: PCP Family Medicine; Referring Provider Surgery; Visit Provider Surgery | DX: R10.9 Unspecified abdominal pain (principal) | CPT/HCPCS: 87086 ==

== ENCOUNTER → 2024-04-27 | Outpatient (CLI) | payer BC, SELFPAY ==
[2024-04-27 17:56] LABS: Absolute Lymphocyte Count 2.92 X10^3/uL (0.83-4.51); Absolute Neutrophil Count 4.8 X10^3/uL (2.0-7.7); Basophil# 0.04 X10^3/uL; Basophil% 0.5 % (0-1); Eosinophil# 0.15 X10^3/uL; Eosinophils% 1.7 % (0-5); Hemoglobin 13.3 g/dL (12.0-15.0); Lymphocyte # 2.92 X10^3/ul (0.83-4.51); Lymphocyte % 33.3 % (19-41); Mean Corp Hgb Conc 33.3 g/dL (32-36); Mean Corpuscular Hgb 30.4 pg (27.0-32.0); Mean Corpuscular Volume 91.5 fL (81-99); Mean Platelet Vol. 10.5 fl (6.2-12.0); Monocyte# 0.74 X10^3/uL; Monocyte% 8.4 % (0-10); NRBC Flagged by Analyzer 0 % (0-5); Neutrophil # 4.83 X10^3/uL (2.7-7.7); Neutrophil % 55.2 % (47-70); Platelet Count 356 K/mm3 (150-450); RBC Distribution Width CV 12.7 % (11.6-14.6); RBC Distribution Width SD 42.3 fl (35.1-43.9); Red Blood Count 4.37 M/mm3 (4.2-5.4); White Blood Count 8.8 K/mm3 (4.4-11.0)
[2024-04-27 18:22] LABS: ALB/GLOB Ratio 1.1 RATIO (0.9-2.4); AST(SGOT) 18 U/L (15-37); Alanine Aminotransfer ALT/SGPT 36 U/L (13-56); Alkaline Phosphatase 72 U/L (45-117); Anion Gap 6 (5-15); BUN 24 mg/dL (7-18); BUN/Creat Ratio 26.1 RATIO (10-20); Calcium,Total 9.6 mg/dL (8.5-10.1); Chloride 106 mmol/L (98-107); Creatinine, Serum 0.92 mg/dL (0.55-1.02); EST Glomerular Filtration Rate 68 mL/min (>60); Est Glom Filt Rate - Afr Amer 82 mL/min (>60); Globulin 3.5 g/dL (2.2-4.2); Glucose 92 mg/dL (74-106); Potassium 3.9 mmol/L (3.5-5.1); Protein, Total 7.5 g/dL (6.4-8.2); Sodium Level 139 mmol/L (136-145)
== END | disposition home or self-care (01) ==
PROVIDERS: PCP Family Medicine; Referring Provider Internal Medicine Rheumatology; Visit Provider Internal Medicine Rheumatology
DX: M06.079 Rheumatoid arthritis without rheumatoid factor, unspecified ankle and foot (principal); M79.7 Fibromyalgia; Z79.899 Other long term (current) drug therapy
CPT/HCPCS: 36415; 80053; 85025

== ENCOUNTER 2024-05-25 11:16 | Day surgery (SDC) | payer BC, SELFPAY ==
[2024-05-25] VITALS (7 sets, daily range): BP systolic 130–143; BP diastolic 87–98; PULSE 69–97; RESP 16–18; TEMP 36.1–36.6; O2SAT 96–100; BMI 32.5
--- NOTE | 2024-05-25 11:31 | PCM.PRE.AN2 ---
ASA Classification* ASA Classification ASA Classification: 2 Assessment & Plan Anesthesia* Anesthesia Assessment Anesthesia Assessment: Discussed sedation and/or anesthesia options, risks, benefits, and alternatives with patient/parents/legal guardian/POA. Questions invited. The patient/parents/legal guardian/POA seems to understand and agrees to proceed with anesthesia plan. Reviewed the physical assessment, medical history, allergy history and patient home medications list prior to surgery/procedure/anesthetic and documented any changes. Performed airway and anesthesia risk assessments. Anesthesia Type Anesthesia Type: MAC Anesthesia Focused Assessment* Airway Assessment Mouth opens: >3 cm Mallampati Score: II Focused Labs Anesthesia Preop lab: CBC WBC 8.8 K/mm3 (4.4-11.0) 04/27/24 16:44 RBC 4.37 M/mm3 (4.2-5.4) 04/27/24 16:44 Hgb 13.3 g/dL (12.0-15.0) 04/27/24 16:44 Hct 40.0 % (37-47) 04/27/24 16:44 Plt Count 356 K/mm3 (150-450) 04/27/24 16:44 CHEMISTRY Potassium 3.9 mmol/L (3.5-5.1) 04/27/24 16:44 Sodium 139 mmol/L (136-145) 04/27/24 16:44 Magnesium 2.0 mg/dL (1.6-2.6) 04/25/23 06:25 Phosphorus 2.5 mg/dL (2.5-4.9) 04/25/23 06:25 BUN 24 mg/dL (7-18) H 04/27/24 16:44 Creatinine 0.92 mg/dL (0.55-1.02) 04/27/24 16:44 Glucose 92 mg/dL (74-106) 04/27/24 16:44 TSH 0.62 uIU/mL (0.358-3.74) 11/28/17 15:46 COAG PT 13.7 SECONDS (11.7-14.9) 11/28/17 15:46 Pre-Assessment Diagnosis/Proposed Procedure Planned Operative Procedure(s): Caudal MAHSA Anesthesia History 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 When Was Last Pacemaker Check QUESTION #4 FULL TEXT: You/Your Family Experience fever (hyperthermia) with Anesthesia Last Oral Intake Last Oral intake: Last Oral Intake NPO since Meds taken in AM with sips of water? Meds patient instructed to take am of surgery PONV PONV - petroleum analyst: PONV - petroleum analyst Female HX of Motion Sickness HX of N/V After Surgery Non-Smoker Duration of Surgery greater than 60 minutes Number of Risk Factors PONV Score Height & Weight Height & Weight: Anesthesia: Height & Weight Height 5 ft 8 in 04/15/24 08:24 Respiratory Assessment Respiratory Assessment - petroleum analyst: Respiratory Tract Infection Hx - petroleum analyst Hx Respiratory Tract Infection No 06/21/23 15:35 STOP Sleep Apnea STOP Sleep Apnea - petroleum analyst: STOP Sleep Apnea - petroleum analyst Hx Hypertension No 06/21/23 15:35 Hx Sleep Apnea Yes 06/21/23 15:35 CPAP Yes: Does not use anymore 01/20/24 09:45 BIPAP No 06/21/23 15:35 Do you snore loudly (louder than talking or can be heard Do you often feel tired/ fatigued/ sleepy during daytime? Has anyone observed you stop breathing during sleep? STOP Results QUESTION #5 FULL TEXT : Do you snore loudly (louder than talking or can be heard through closed doors)? 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 Specify any problems Hx of Preganancy in last 3 Months Nurse Filling Out Transfusion & Questions: Date: Time: Patient unable to answer at this time (ie. confused, unrespo /Reproduction History /Reproductive History - petroleum analyst: /Reproductive Hx- petroleum analyst Hx Now Gestational Age (in weeks): EDC: Hx Hx Para Hx Section SAB No 06/21/23 15:35 PFSH Medical History Wears dentures Wears glasses Depression Thyroid disease Back pain History of hiatal hernia History of diverticulitis Gastric reflux Former smoker Arthritis, rheumatoid Fibromyalgia Hypothyroidism Arthritis Home Medications ?Medication ?Instructions ?Recorded ?Last Taken ?Type levothyroxine 112 mcg tablet 125 mcg PO DAILY 06/25/13 01/20/24 05:30 History omeprazole 20 mg capsule,delayed 20 mg PO PRN Indigestion 11/27/17 Unknown History release ibuprofen 600 mg tablet 600 mg PO Q6H PRN PRN Mild-Mod 12/04/17 Unknown Rx Pain (1-5/10) #30 tabs liothyronine 5 mcg tablet 5 mcg PO DAILY 04/23/23 Unknown History folic acid 1 mg tablet 1 mg PO DAILY 10/15/23 Unknown History cyclobenzaprine 10 mg tablet 10 mg PO TID PRN Muscle Spasm #20 10/18/23 Unknown Rx TABLETS Allergy/AdvReac Type Severity Reaction Status Date / Time ceftriaxone sodium (From Allergy Rash Verified 04/24/24 15:10 Rocephin) oxycodone AdvReac Nausea/Vom/ Verified 04/24/24 15:10 Diarrhea Surgical History Hx of tubal ligation Hx of bilateral breast reduction surgery Hx of hysterectomy Hx of colonoscopy History of tonsillectomy History of shoulder surgery History of neck surgery History of foot operation History of carpal tunnel release Social History Smoking Status: Former smoker alcohol intake: current alcohol intake frequency: holidays/special occasions only Review of Systems (Anesthesia) ROS Narrative System reviewed and no additional complaints, except as documented.
--- NOTE | 2024-05-25 12:15 | RAD_ITS ---
PROCEDURE: Caudal epidural. DATE OF EXAMINATION: May 25, 2024. INDICATION: Female, 54 years old. Chronic low back pain. FLUOROSCOPY TIME (if supplied): (4 6) minutes/seconds. One image was submitted. RAD/Fluor Guidance for Spine Inj IMPRESSION: Fluoroscopic services provided for caudal epidural. Electronically Signed: Sivakumar Avendano MD at 9:02 EDT ,
[2024-05-25] MEDS: 0.9% Normal Saline (Pres. free 10 ML Vial (12:22)
[2024-05-25] MEDS: Lidocaine 1% (5 ml sdv) 5 ML Vial (12:22)
[2024-05-25] MEDS: Bupivacaine 0.25% 30 ML Vial (12:22)
[2024-05-25] MEDS: MethylPREDNISolone Acetate 80 MG/ML Vial (12:22)
--- NOTE | 2024-05-25 12:33 | PCM.POST.ANE ---
Anesthesia: Postop Eval I Current Vital Signs Temperature: 97.8 F Pulse Rate: 97 Blood Pressure: 137/98 Respiratory Rate: 16 Pulse Ox: 97 Oxygen Delivery Method: Room Air Assessment Airway patent: Yes Spontaneous unlabored respirations: Yes Mental status: Asleep nausea: No Vomiting: No Anesthesia Complication: No Fluid Hydration Crystalloid volume administer (ml): 20 Total IV fluid infused: 20 Progress Note Anesthesia document: Postop Eval 1 completed: Yes
--- NOTE | 2024-05-25 14:13 | OP.PCM_ITS ---
Report of Operation Date of Procedure: 05/25/24 Pre-Operative Diagnosis: Lumbosacral radiculopathy, lumbosacral degenerative di sc disease, lumbosacral spinal stenosis Post-Operative Diagnosis: Lumbosacral radiculopathy, lumbosacral degenerative disc disease, lumbosacral spinal stenosis Surgery/Procedure Performed:: Diagnostic/therapeutic caudal epidural steroid injection under fluoroscopic guidance Type of Anesthesia: MAC Estimated Blood Loss (mL): Minimal Description of Procedure: DESCRIPTION OF PROCEDURE: History and physical of today was reviewed. Risks and benefits of the procedure were explained. The patient understood and agreed to proceed. Informed consent was obtained. IV inserted per routine protocol. The patient was taken to the operating room and placed in the prone position with a pillow positioned underneath the abdomen. The lower back and tailbone area was prepped and draped in a sterile fashion using iodine x3. Under fluoroscopy guidance on a lateral view, the caudal space was identified. The skin and subcutaneous tissue was anesthetized with approximately 3 mL of 1% lidocaine using a 25-gauge regular needle. Under direct visualization with fluoroscopy, using a 22-gauge 3-1/2-inch spinal needle, the needle was advanced via the skin through the sacral hiatus. The tip of the needle was passed through the sacrococcygeal ligament and advanced to approximately S4 area. After negative aspiration of blood or CSF, a total of 3 mL of contrast was injected to confirm correct placement of the needle as well as cephalad spread. The spread was followed to approximately L5 area. After confirmation on AP as well as lateral view and repeated negative aspiration, a total of 15 mL of preservative-free 0.125% Marcaine with 80 mg of Depo-Medrol was injected easily. The needle was then removed intact. The patient experienced no sign or symptoms of intrathecal or intravascular injection. The patient experienced no paresthesia. The procedure was completed without any apparent difficulty or any complications. The patient appeared to tolerate it well. ASSESSMENT AND PLAN: This is a 54-year-old female with lumbosacral radiculopathy, lumbosacral degenerative disc disease, lumbosacral spinal stenosis status post diagnostic/therapeutic caudal epidural steroid injection, patient will continue her current medications, patient will follow up in approximately 2 weeks for reevaluation. Complications None
--- NOTE | 2024-05-25 14:53 | PCM.POSTANE2 ---
Anesthesia Postop Eval I Sum Postop Eval Completion status Anesthesia document: Postop Eval 1 completed: Yes Anesthesia Postop Eval I Summary Anesthesia Postop Eval I Summary: Anesthesia Postop Eval I: Assessment Summary Airway patent Yes 05/25/24 12:34 [email or web address] Spontaneous unlabored Yes 05/25/24 12:34 [email or web address] respirations Mental status Asleep 05/25/24 12:34 [email or web address] nausea No 05/25/24 12:34 [email or web address] Vomiting No 05/25/24 12:34 [email or web address] Anesthesia Postop Eval I: Fluid Summary Crystalloid volume administer 20 05/25/24 12:34 [email or web address] (ml) Colloids volume administered ( ml) Blood Product volume administered (ml) Total IV fluid infused 20 05/25/24 12:34 [email or web address] Anesthesia Postop Eval I: Summary Notes Anesthesia Complication No 05/25/24 12:34 [email or web address] Anesthesia Complication Comment: Post-operative progress note Anesthesia: Postop Eval II Evaluation Mental status: Awake and Calm Pain Level: 1 nausea: No Vomiting: No Complications Anesthesia Complication: No
--- NOTE | 2024-06-09 14:39 | PCM.HP.BLA ---
History and Physical Date of Admission: 05/25/24 Chief Complaint: Pain in upper to lower back , right hip, and right leg. History of Present Illness: This is a 54 Y/O female who was seen and evaluated at our office today as a follow up. Pain: low back, right hip, right leg Quality: dull ache , occasional sharp pain, tingling, numbness Region: Reports pain in right lower back into the right hip and down the right leg Severity: intermittent Timing: on going Aggravated by: lifting at work, sitting, bending, laying on right side Relieved by: nothing specific Pain score (out of 10): 04/14 Other info: Patient is here for a follow up. Reports pain in the upper to lower back that radiates into the right buttock, hip and leg. States her pain is constant . States pain ranges from a dull ache to sharp /stabbing. Reports numbness/ tingling down the right leg . States she has taken 6 tylenol extra strength today. Denies falls. Denies issues with bowels or bladder. Review of Systems: Patient denies any fever, chills, headache, change in weight without trying, vision or hearing problems. No cp, sob, pozo, pnd, orthopnea, or peripheral edema. They note no lumps or swollen glands, no new rashes, changing moles.Mood has been frustrated Past Medical History: h/o Diverticulitis h/o rheumatoid arthritis h/o fibromyalgia h/o GERD h/o hypothyroid h/o goiter h/o headache h/o ulcers h/o osteoarthritis s/p breast surgery (reduction) 2004 s/p jonah carpal tunnel release 2004 s/p lt fifth metatarsal ft sx 2009 s/p hysterectomy s/p lt shoulder sx 2014 s/p tonsillectomy 1979 s/p tubal ligation 1992 Family History: ======== Structured Family History ======== Father: Stroke, Hypertension, Heart disease Mother: Hypertension, Heart disease Grandparent: Stroke, Heart disease, Diabetes mellitus Social History: [Tobacco: Former smoker (0 pk yrs / 0 yrs quit) Start Date: 03/31/2019 End Date: 03/31/2019 Pipe Smoker: No Cigar Smoker: No Chewing Tobacco User: No Electronic Cigarette User: No] Living situation: Occupation: [employer] Tobacco: former (occasional) EtOH: Occasional Rec. drugs: Denies Allergies: Rocephin, Percocet 5/325 Medications: 1) folic acid 1 mg tablet, Take 2 tablets by mouth 2 times a Day 2) levothyroxine 112 mcg tablet, Take 1 tablet by mouth once daily 3) liothyronine 5 mcg tablet, Take 1 tablet by mouth once daily 4) methotrexate sodium 2.5 mg tablet, 6 tablets po once a week. 5) omeprazole 20 mg capsule,delayed release, Take 1 tablet by mouth once daily 6) Tylenol Extra Strength 500 mg tablet, PRN Physical Examination: Wt: 215.2 lb Ht/Ln: 68.5 in BMI: 32.2 BP: 149/77 Pulse: 79 RR: 16 Temp: 97.4F Pain: 9 Well nourished and well developed in no acute distress. Alert and oriented to person, place and time. Affect is normal and appropriate. Mucosa pink and moist. Respirations even and unlabored. No conversaitonal shortness of breath or cough. Neck is supple without significant lymphadenopathy or thyromegaly. Abdomen soft & non-tender. No HSM or masses appreciated. Extremities show no cyanosis, clubbing, or edema. Gait is antalgic without assistance device. Lumbar paraspinal muscle tenderness bilaterally. Lumbar ROM is limited with flexion and lateral motion left and right. Bilateral lumbar facet loading is positive Positive SLR from seated position bilaterally. Negative JED test bilaterally. 4/5 lower extremity muscle strength Motor and sensory exam is unchanged. Assessment & Plan: # Lumbosacral spondylosis (M47.817): # Degeneration of lumbosacral intervertebral disc (M51.37): # Lumbosacral radiculopathy (M54.17): # Arthropathy of lumbar facet (M46.96): # skilled nursing (current) use of opiate analgesic (Z79.891): # Myofascial pain (M79.18): # Opioid abuse with unspecified opioid-induced disorder (F11.19): PRESCRIBE: Medrol (Sherif) 4 mg tablets in a dose pack, take as directed from package Do not take NSAIDS along with this., # 1, RF: 0. (Transmitted by Nessa Luis APRN, M[employer] MAINTENANCE TECHNICIAN) PRESCRIBE: baclofen 10 mg tablet, take 1/2 to 1 tablet PO TID, as needed for spasms, # 30, RF: 0. (Transmitted by Nessa Luis APRN, [employer] MAINTENANCE TECHNICIAN) Continue current medication regimen. OARRS was reviewed today. UDS was reviewed, inconsistent in the past, which led to stopped opioid therapy by this office. SOAPP score is 7 MRI of the lumbar spine was reviewed with the pt today and they appear to understand. Pt to see her PCP. There are no signs of diversion or addiction with the pt, there is also no signs of abuse or misuse, continues to do well with their medications without any side effects, we will continue monitoring the pt closely. PEG was reviewed today. Life style modifications were also discussed today and the pt appears to understand. Risks and benefits of the above meds were discussed with the pt and they appear to understand. The common side effects of the medications were discussed and all of their questions and concerns were answered and they appear to understand. Discussed natural and expected course of this diagnosis and need to alert me if symptoms do not follow expected course, or if any worse. Pt is to continue with her HEP. Pt has tried multiple modalities in the past with little or no success, will schedule the pt for a therapeutic/diagnostic caudal epidural steroid injection under fluoroscopy We have discussed the risks, benefits as well as alternatives of the procedure and the patient appears to understand and would like to proceed with the above plan. The above plan was discussed today with the pt in details and she appears to understand and agrees to continue with the plan.
== END 2024-05-25 13:05 | disposition home or self-care (01) ==
LOC: SDC 11:18 → AC 11:37
PROVIDERS: PCP Family Medicine; Referring Provider Anesthesiology Pain Medicine; Visit Provider Anesthesiology Pain Medicine
PROC: 3E0S3BZ Introduction of Anesthetic Agent into Epidural Space, Percutaneous Approach (ICD-10-PCS; CPT 62282; principal; 2024-05-25 12:55)
DX: M47.27 Other spondylosis with radiculopathy, lumbosacral region (principal); F11.19 Opioid abuse with unspecified opioid-induced disorder; M51.17 Intervertebral disc disorders with radiculopathy, lumbosacral region; M48.07 Spinal stenosis, lumbosacral region; M79.7 Fibromyalgia; E03.9 Hypothyroidism, unspecified; Z79.890 Hormone replacement therapy; Z79.891 Long term (current) use of opiate analgesic; Z87.891 Personal history of nicotine dependence; Z90.710 Acquired absence of both cervix and uterus
CPT/HCPCS: 62323; 01992; 64483; 77003; A4216; J3490

== ENCOUNTER → 2024-07-31 | Outpatient (CLI) | payer BC, SELFPAY ==
[2024-07-31 17:31] LABS: Absolute Lymphocyte Count 1.89 X10^3/uL (0.83-4.51); Basophil# 0.05 X10^3/uL; Basophil% 0.9 % (0-1); Eosinophil# 0.15 X10^3/uL; Eosinophils% 2.7 % (0-5); Hematocrit 38.8 % (37-47); Lymphocyte # 1.89 X10^3/ul (0.83-4.51); Lymphocyte % 33.6 % (19-41); Mean Corp Hgb Conc 33.5 g/dL (32-36); Mean Corpuscular Hgb 30.4 pg (27.0-32.0); Mean Corpuscular Volume 90.7 fL (81-99); Mean Platelet Vol. 10.5 fl (6.2-12.0); Monocyte# 0.49 X10^3/uL; Monocyte% 8.7 % (0-10); NRBC Flagged by Analyzer 0 % (0-5); Neutrophil # 3.03 X10^3/uL (2.7-7.7); Neutrophil % 53.9 % (47-70); Platelet Count 335 K/mm3 (150-450); RBC Distribution Width CV 12.5 % (11.6-14.6); RBC Distribution Width SD 40.9 fl (35.1-43.9); Red Blood Count 4.28 M/mm3 (4.2-5.4); White Blood Count 5.6 K/mm3 (4.4-11.0)
[2024-07-31 18:05] LABS: ALB/GLOB Ratio 1.1 RATIO (0.9-2.4); AST(SGOT) 15 U/L (15-37); Alanine Aminotransfer ALT/SGPT 31 U/L (13-56); Albumin, Serum 3.8 g/dL (3.2-5.0); Alkaline Phosphatase 69 U/L (45-117); Anion Gap 3 (5-15); BUN 15 mg/dL (7-18); BUN/Creat Ratio 19.7 RATIO (10-20); Calcium,Total 9.4 mg/dL (8.5-10.1); Chloride 106 mmol/L (98-107); Creatinine, Serum 0.76 mg/dL (0.55-1.02); EST Glomerular Filtration Rate 84 mL/min (>60); Est Glom Filt Rate - Afr Amer 102 mL/min (>60); Globulin 3.4 g/dL (2.2-4.2); Glucose 100 mg/dL (74-106); Potassium 3.9 mmol/L (3.5-5.1); Protein, Total 7.2 g/dL (6.4-8.2); Sodium Level 138 mmol/L (136-145)
== END | disposition home or self-care (01) ==
LOC: MTLAB 14:32
PROVIDERS: PCP Family Medicine; Referring Provider Internal Medicine Rheumatology; Visit Provider Internal Medicine Rheumatology
DX: M06.079 Rheumatoid arthritis without rheumatoid factor, unspecified ankle and foot (principal); M79.7 Fibromyalgia; Z79.899 Other long term (current) drug therapy
CPT/HCPCS: 36415; 80053; 85025

== ENCOUNTER → 2024-10-21 | Outpatient (CLI) | payer BC, SELFPAY ==
[2024-10-21 17:46] LABS: Absolute Neutrophil Count 3.5 X10^3/uL (2.0-7.7); Basophil# 0.05 X10^3/uL; Basophil% 0.8 % (0-1); Eosinophil# 0.09 X10^3/uL; Eosinophils% 1.4 % (0-5); Hematocrit 39.9 % (37-47); Hemoglobin 13.6 g/dL (12.0-15.0); Lymphocyte % 33.4 % (19-41); Mean Corp Hgb Conc 34.1 g/dL (32-36); Mean Corpuscular Hgb 30.3 pg (27.0-32.0); Mean Corpuscular Volume 88.9 fL (81-99); Mean Platelet Vol. 10.3 fl (6.2-12.0); Monocyte# 0.52 X10^3/uL; Monocyte% 8.3 % (0-10); NRBC Flagged by Analyzer 0 % (0-5); Neutrophil # 3.52 X10^3/uL (2.7-7.7); Neutrophil % 55.9 % (47-70); Platelet Count 342 K/mm3 (150-450); RBC Distribution Width CV 12.8 % (11.6-14.6); RBC Distribution Width SD 41.2 fl (35.1-43.9); Red Blood Count 4.49 M/mm3 (4.2-5.4); White Blood Count 6.3 K/mm3 (4.4-11.0)
[2024-10-21 19:05] LABS: ALB/GLOB Ratio 1.6 RATIO (0.9-2.4); AST(SGOT) 19 U/L (<=31); Alanine Aminotransfer ALT/SGPT 24 U/L (<=34); Albumin, Serum 4.5 g/dL (3.5-5.0); Alkaline Phosphatase 68 U/L (35-104); Anion Gap 12 (5-15); BUN 16 mg/dL (4-19); BUN/Creat Ratio 20.2 RATIO (10-20); Calcium,Total 9.8 mg/dL (7.6-11.0); Carbon Dioxide 24.1 mmol/L (21.0-32.0); Chloride 104 mmol/L (98-108); EST Glomerular Filtration Rate 87 (>60); Globulin 2.8 g/dL (2.2-4.2); Glucose 90 mg/dL (70-99); Potassium 3.9 mmol/L (3.3-5.1); Protein, Total 7.3 g/dL (5.9-8.4); Sodium Level 140 mmol/L (133-145)
== END | disposition home or self-care (01) ==
LOC: MTLAB 16:38
PROVIDERS: PCP Family Medicine; Referring Provider Internal Medicine Rheumatology; Visit Provider Internal Medicine Rheumatology
DX: M06.079 Rheumatoid arthritis without rheumatoid factor, unspecified ankle and foot (principal); M79.7 Fibromyalgia; M19.041 Primary osteoarthritis, right hand; Z79.899 Other long term (current) drug therapy
CPT/HCPCS: 36415; 80053; 85025

== ENCOUNTER 2024-10-22 09:09 | Emergency (ER) | payer OTHER, BC, SELFPAY ==
[2024-10-22 09:10] VITALS: BP 179/96; PULSE 94; RESP 15; TEMP 36.8; O2SAT 98; BMI 31.9
--- NOTE | 2024-10-22 09:57 | EDS_ITS ---
HPI History of Present Illness Chief Complaint: Occup Expose Narrative Narrative: Patient is a 54-year-old female with past medical history of hypothyroidism, depression, fibromyalgia, GERD who presented to the emergency department with a concern for being stuck from a lancet a diabetic uses checked her blood glucose. Patient states that she was at work there was 1 laying out she picked it up and it stuck her right middle finger. She states that she called her HR department and they advised her to come here to be evaluated. She states that she would like hepatitis testing as well as HIV testing. Patient is unsure when her last tetanus shot she states that she believes her last tetanus shot was updated here. [facility] Medical History Wears dentures Wears glasses Depression Thyroid disease Back pain History of hiatal hernia History of diverticulitis Gastric reflux Former smoker Arthritis, rheumatoid Fibromyalgia Hypothyroidism Arthritis Home Medications ?Medication ?Instructions ?Recorded ?Last Taken ?Type levothyroxine 112 mcg tablet 125 mcg PO DAILY 06/25/13 05/25/24 History omeprazole 20 mg capsule,delayed 20 mg PO PRN Indigest ion 11/27/17 05/24/24 History release ibuprofen 600 mg tablet 600 mg PO Q6H PRN PRN Mild-M od 12/04/17 Unknown Rx Pain (1-12/12) #30 tabs liothyronine 5 mcg tablet 5 mcg PO DAILY 04/23/2305/06 History folic acid 1 mg tablet 1 mg PO DAILY 10/15/2305/23 History cyclobenzaprine 10 mg tablet 10 mg PO TID PRN Muscle S pasm #20 10/18/23 Unknown Rx TABLETS methotrexate 2.5 mg/mL oral 2.5 mg PO QWEEK 09/09/24 U nknown History solution tramadol 50 mg tablet 50 mg PO TID PRN 09/09/24 Un known History Allergy/AdvReac Type Severity Reaction Status Date / Time ceftriaxone sodium (From Allergy Rash Verified 10/22/24 09:12 Rocephin) oxycodone AdvReac Nausea/Vom/ Verified 10/22/24 09:12 Diarrhea Family History Other Asthma COPD (chronic obstructive pulmonary disease) Diabetes Hypertension Thyroid disorder Surgical History Hx of tubal ligation Hx of bilateral breast reduction surgery Hx of hysterectomy Hx of colonoscopy History of tonsillectomy History of shoulder surgery History of neck surgery History of foot operation History of carpal tunnel release Social History Smoking Status: Former smoker alcohol intake: current alcohol intake frequency: holidays/special occasions only ROS ROS ED ROS Narrative Neurological: Denies numbness, weakness, Skin: Complains of skin poke from lancet and right middle finger as noted above EXAM Physical Exam Narrative Exam Narrative: General: Patient lying in bed rest comfortably did not appear to be in acute distress Head: Atraumatic, normocephalic Eyes: PERRL bilaterally, EOMI bilaterally, no conjunctival injection noted Neck: Soft, supple, trachea midline Cardiovascular: Regular rate Extremities: +5/5 strength noted to bilateral upper and lower extremities Neurological: Patient follow commands knew that she was at [facility] year is 2024 Skin: Small poke from the lancet in her right middle finger no active bleeding noted no concern for infection Const Vital Signs: 10/22/24 09:10 10/22/24 09:37 Temperature 98.2 F Temperature Source Temporal Pulse Rate 94 Respiratory Rate 15 Respiratory Effort Normal Respiratory Pattern Normal Blood Pressure 179/96 H Blood Pressure Mean 123 Pulse Ox 98 Oxygen Delivery Method Room Air MDM MDM MDM Narrative Medical decision making narrative: Patient is a 54-year-old female who presented to the emergency department after occupational exposure to a lancet while at work. On the differential diagnose includes but not limited to HIV exposure, hepatitis exposure although I have very low suspicion for both of these, superficial wound. Patient will have blood test drawn here and will be advised to follow-up on these with corporate care as this was a work-related injury. Was unable to see when the patient's tetanus shot was updated last therefore updated today Patient was advised to follow-up on the hepatitis and HIV testing with corporate care. She was advised to watch out for signs of infection if this is to occur she is to return to the emergency department or go to corporate care. She is encouraged return with any other concerns. All question concerns answered she was discharged home in stable condition. Discharge Plan Triage Chief Complaint: Occup Expose ED Provider: Howard Michelle Dx/Rx/DC Orders Clinical Impression: Injury of right middle finger Prescriptions: No Action folic acid 1 mg tablet 1 mg PO DAILY tramadol 50 mg tablet 50 mg PO TID PRN levothyroxine 112 MCG tablet 125 mcg PO DAILY omeprazole 20 MG capsule,delayed release(DR/EC) 20 mg PO PRN ibuprofen 600 MG tablet 600 mg PO Q6H PRN PRN (Reason: Mild-Mod Pain (-12/12)) Qty: 30 0RF liothyronine 5 mcg tablet 5 mcg PO DAILY Patient Comments: TAKE 1 TABLET BY MOUTH DAILY take with levothoroxine cyclobenzaprine 10 mg tablet 10 mg PO TID PRN (Reason: Muscle Spasm) Qty: 20 0RF Primary Care Provider: Dinoar Serra Referrals: Dinora Serra DO [Primary Care Provider] - [facility] [Group of Physicians] - Activity Restrictions/Additional Instructions: Follow-up with corporate care as this was a work-related injury. Watch out for signs of infection if this is to occur go to corporate care or return to the emergency department. Your tetanus shot was updated today. Follow-up on the blood tests that were obtained today with corporate care. Print Language: Taiwanese Disposition Disposition: Home, Self Care
[2024-10-22] MEDS: Diphth,Pertuss(Acell),Tet Vac 0.5 ML Vial IM (10:19)
[2024-10-22 12:15] LABS: HIV Nonreactive (Nonreactive); Hepatitis B Surface Antibody Nonreactive; Hepatitis B Surface Antigen Nonreactive (Nonreactive); Hepatitis C Antibody Nonreactive (Nonreactive)
[2024-10-23 05:07] LABS: Hepatitis A IgM Antibody Negative (Negative); Hepatitis B Core AB IgM Negative (Negative)
[2024-10-24 04:07] LABS: HIV-1 RNA by PCR, Quant. < 20 copies/mL (.)
== END 2024-10-22 10:44 | disposition home or self-care (01) ==
PROVIDERS: Emergency Provider Emergency Medicine; PCP Family Medicine; Visit Provider Emergency Medicine
DX: S61.232A Puncture wound without foreign body of right middle finger without damage to nail, initial encounter (principal); W26.8XXA Contact with other sharp object(s), not elsewhere classified, initial encounter; Y99.0 Civilian activity done for income or pay; Z23 Encounter for immunization; E03.9 Hypothyroidism, unspecified; M79.7 Fibromyalgia; K21.9 Gastro-esophageal reflux disease without esophagitis; Z79.890 Hormone replacement therapy; Z79.899 Other long term (current) drug therapy; Z87.891 Personal history of nicotine dependence
CPT/HCPCS: 36415; 86703; 86705; 86706; 86709; 86803; 87340; 87536; 90471; 90715; 99282

== ENCOUNTER 2025-01-04 08:03 | Day surgery (SDC) | payer BC, SELFPAY ==
[2025-01-04] VITALS (10 sets, daily range): BP systolic 118–151; BP diastolic 78–96; PULSE 53–70; RESP 16–18; TEMP 36.4–36.9; O2SAT 96–100; BMI 30.8
[2025-01-04] MEDS: 0.9% Normal Saline (Pres. free 10 ML Vial (07:04)
[2025-01-04] MEDS: MethylPREDNISolone Acetate 80 MG/ML Vial (07:04)
[2025-01-04] MEDS: Lactated Ringers 1,000 ML 15 ML IV (08:29)
--- NOTE | 2025-01-04 08:36 | PRE.ANES_ITS ---
ASA Classification* ASA Classification ASA Classification: 2 (hypothyroid) Assessment & Plan Anesthesia* Anesthesia Assessment Anesthesia Assessment: Discussed sedation and/or anesthesia options, risks, benefits, and alternatives with patient/parents/legal guardian/POA. Questions invited. The patient/parents/legal guardian/POA seems to understand and agrees to proceed with anesthesia plan. Reviewed the physical assessment, medical history, allergy history and patient home medications list prior to surgery/procedure/anesthetic and documented any changes. Performed airway and anesthesia risk assessments. Anesthesia Type Anesthesia Type: MAC History Source History Obtained from:: Patient and Chart Anesthesia Focused Assessment* Temperature: 98.4 F Pulse Rate: 65 Blood Pressure: 150/90 Respiratory Rate: 18 Pulse Ox: 100 Oxygen Delivery Method: Room Air Airway Assessment Mouth opens: >3 cm Mallampati Score: II Teeth Condition: Intact Neck Range of motion (ROM): Full ROM Focused Labs Anesthesia Preop lab: CBC WBC 6.3 K/mm3 (4.4-11.0) 10/21/24 16:41 10/21/24 RBC 4.49 M/mm3 (4.2-5.4) 10/21/24 16:41 10/21/24 Hgb 13.6 g/dL (12.0-15.0) 10/21/24 16:41 10/21/24 Hct 39.9 % (37-47) 10/21/24 16:41 10/21/24 Plt Count 342 K/mm3 (150-450) 10/21/24 16:41 10/21/24 CHEMISTRY Potassium 3.9 mmol/L (3.3-5.1) 10/21/24 16:41 10/21/24 Sodium 140 mmol/L (133-145) 10/21/24 16:41 10/21/24 Magnesium 2.0 mg/dL (1.6-2.6) 04/25/23 06:25 04/25/23 Phosphorus 2.5 mg/dL (2.5-4.9) 04/25/23 06:25 04/25/23 BUN 16 mg/dL (4-19) 10/21/24 16:41 10/21/24 Creatinine 0.80 mg/dL (0.70-1.20) 10/21/24 16:41 10/21/24 Glucose 90 mg/dL (70-99) 10/21/24 16:41 10/21/24 TSH 0.62 uIU/mL (0.358-3.74) 11/28/17 15:46 COAG PT 13.7 SECONDS (11.7-14.9) 11/28/17 15:46 Pre-Assessment Diagnosis/Proposed Procedure Planned Operative Procedure(s): CAUDAL BLOCK Anesthesia History 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 When Was Last Pacemaker Check QUESTION #4 FULL TEXT: You/Your Family Experience fever (hyperthermia) with Anesthesia Last Oral Intake Last Oral intake: Last Oral Intake NPO since 06:00 01/04/25 08:24 Meds taken in AM with sips of Yes 01/04/25 08:24 water? 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 Female Yes 12/30/24 08:54 HX of Motion Sickness No 12/30/24 08:54 HX of N/V After Surgery No 12/30/24 08:54 Non-Smoker Yes 12/30/24 08:54 Duration of Surgery greater No 12/30/24 08:54 than 60 minutes Number of Risk Factors 2 12/30/24 08:54 PONV Score Moderate Risk 12/30/24 08:54 Height & Weight Height & Weight: Anesthesia: Height & Weight Height 5 ft 8 in 01/04/25 08:24 Weight: 92 kg 01/04/25 08:24 Body Mass Index (BMI) 30.8 01/04/25 08:24 Respiratory Assessment Respiratory Assessment - annealing furnace tender: Respiratory Tract Infection Hx - annealing furnace 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 Has anyone observed you stop breathing during sleep? STOP Results Positive 12/30/24 08:54 QUESTION #5 FULL TEXT : Do you snore loudly (louder than talking or can be heard through closed doors)? 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 Specify any problems Hx of Preganancy in last 3 No 12/30/24 08:54 Months Nurse Filling Out Transfusion DSCHRIBER 12/30/24 08:54 & Questions: Date: 12/30/24 12/30/24 08:54 Time: 08:55 12/30/24 08:54 Patient unable to answer at this time (ie. 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: /Reproductive Hx- annealing furnace tender Hx Now Gestational Age (in weeks): EDC: Hx Hx Para Hx Section SAB No 12/30/24 08:54 Active Medications Active Medications: Current Medications Generic Name Dose Route Start Last Admin Trade Name Freq PRN Reason Stop Dose Admin Lactated Ringer's 1,000 mls @ 15 mls/hr 01/04/25 08:15 01/04/25 08:29 IV 15 mls/hr .Q48H CR Administration PFSH Medical History (Updated 12/30/24 @ 08:58 by Fabby Arshad) Pain CPAP (continuous positive airway pressure) dependence Wears dentures Wears glasses Depression Thyroid disease Back pain History of hiatal hernia History of diverticulitis Gastric reflux Former smoker Arthritis, rheumatoid Fibromyalgia Arthritis Home Medications ?Medication ?Instructions ?Recorded ?Last Taken ?Type levothyroxine 112 mcg tablet 112 mcg PO DAILY 06/25/13 01/04/25 06:00 History omeprazole 20 mg capsule,delayed 20 mg PO PRN Indigest ion 11/27/17 05/24/24 History release ibuprofen 600 mg tablet 600 mg PO Q6H PRN PRN Mild-M od 12/04/17 Unknown Rx Pain (-12/12) #30 tabs liothyronine 5 mcg tablet 5 mcg PO DAILY 04/23/2305/06 History folic acid 1 mg tablet 1 mg PO DAILY 10/15/2305/23 History cyclobenzaprine 10 mg tablet 10 mg PO TID PRN Muscle S pasm #20 10/18/23 Unknown Rx TABLETS tramadol 50 mg tablet 50 mg PO TID PRN pain Unknown History methotrexate sodium 2.5 mg tablet 17.5 mg PO PEREZ Unknown History Allergy/AdvReac Type Severity Reaction Status Date / Time ceftriaxone sodium (From Allergy Rash Verified 01/04/25 08:23 Rocephin) oxycodone AdvReac Nausea/Vom/ Verified 01/04/25 08:23 Diarrhea Family History Other Asthma COPD (chronic obstructive pulmonary disease) Diabetes Hypertension Thyroid disorder Surgical History Hx of tubal ligation Hx of bilateral breast reduction surgery Hx of hysterectomy Hx of colonoscopy History of tonsillectomy History of shoulder surgery History of neck surgery History of foot operation History of carpal tunnel release Social History Smoking Status: Former smoker alcohol intake: current alcohol intake frequency: holidays/special occasions only Review of Systems (Anesthesia) ROS Narrative System reviewed and no additional complaints, except as documented. Physical Exam Const alert, oriented x3 and average body habitus Resp normal respiratory effort, normal air movement and clear to auscultation bilaterally Cardio regular rate, regular rhythm, no murmurs and diaphoretic
--- NOTE | 2025-01-04 09:12 | RAD_ITS ---
PROCEDURE: FLUOR GUIDANCE FOR SPINE INJ 01/04/2025 REASON FOR EXAM: CAUDAL BLOCK TECHNIQUE: Fluoroscopy was performed for spine injection. COMPARISON: None. RAD/Fluor Guidance for Spine Inj IMPRESSION: Fluoroscopy was performed for spine injection. A solitary fluoroscopic image w as also obtained. Reading Location: [id number]
[2025-01-04] MEDS: Lidocaine 1% (5 ml sdv) 5 ML Vial (09:19)
[2025-01-04] MEDS: Bupivacaine 0.25% 30 ML Vial (09:20)
--- NOTE | 2025-01-04 09:22 | OP.PCM_ITS ---
Operative Report (Standard) Operative Information Date of Procedure: 01/04/25 Pre-Operative Diagnosis: Lumbosacral radiculopathy, lumbosacral degenerative disc disease, lumbosacral spinal stenosis Post-Operative Diagnosis: Lumbosacral radiculopathy, lumbosacral degenerative disc disease, lumbosacral spinal stenosis Surgery/Procedure Performed: Diagnostic/therapeutic caudal epidural steroid injection under fluoroscopic guidance music artist: No Type of Anesthesia: Local MAC RN Documented Start/Stop Times: Operation Date: 01/04/25 09:45 Case Time Into Pre-Op 01/04/25 08:07 Anesthesia Start 01/04/25 09:12 Into Room 01/04/25 09:12 Procedure Start 01/04/25 09:17 Procedure End 01/04/25 09:21 Procedure Start Time: :23 Procedure Stop Time: Select all DRAINS/GRAFTS/IMPLANTS that apply: None Estimated Blood Loss: 0 Specimen collected: No Description of surgery: ANESTHESIA: MAC. BLOOD LOSS: Minimal. COMPLICATIONS: None. DESCRIPTION OF PROCEDURE: History and physical of today was reviewed. Risks and benefits of the procedure were explained. The patient understood and agreed to proceed. Informed consent was obtained. IV inserted per routine protocol. The patient was taken to the operating room and placed in the prone position with a pillow positioned underneath the abdomen. The lower back and tailbone area was prepped and draped in a sterile fashion using iodine x3. Under fluoroscopy guidance on a lateral view, the caudal space was identified. The skin and subcutaneous tissue was anesthetized with approximately 3 mL of 1% lidocaine using a 25-gauge regular needle. Under direct visualization with fluoroscopy, using a 22-gauge 3-1/2-inch spinal needle, the needle was advanced via the skin through the sacral hiatus. The tip of the needle was passed through the sacrococcygeal ligament and advanced to approximately S4 area. After negative aspiration of blood or CSF, a total of 3 mL of contrast was injected to confirm correct placement of the needle as well as cephalad spread. The spread was followed to approximately L5 area. After confirmation on AP as well as lateral view and repeated negative aspiration, a total of 15 mL of p reservative-free 0.125% Marcaine with 80 mg of Depo-Medrol was injected easily. The needle was then removed intact. The patient experienced no sign or symptoms of intrathecal or intravascular injection. The patient experienced no paresthesia. The procedure was completed without any apparent difficulty or any complications. The patient appeared to tolerate it well. ASSESSMENT AND PLAN: This is a 54-year-old female with lumbosacral radiculopathy, lumbosacral degenerative disc disease, lumbosacral spinal stenosis, status post diagnostic/therapeutic caudal epidural steroid injection under fluoroscopic guidance, patient will continue her current medications, patient will follow-up in approximately 2 weeks for reevaluation. Surgical Findings: 0 Complications Complications: No Admit VTE Documentation VTE Present on Admission: No VTE Mechan Device Prophylaxis: None VTE Pharm Prophylaxis ordered?: No
--- NOTE | 2025-01-04 09:31 | PCM.POST.ANE ---
Anesthesia: Postop Eval I Current Vital Signs Temperature: 97.8 F Pulse Rate: 70 Blood Pressure: 129/78 Respiratory Rate: 16 Pulse Ox: 97 Oxygen Delivery Method: Room Air Assessment Airway patent: Yes Spontaneous unlabored respirations: Yes Mental status: Awake and Calm nausea: No Vomiting: No Anesthesia Complication: No Fluid Hydration Crystalloid volume administer (ml): 200 Total IV fluid infused: 200 Progress Note Anesthesia document: Postop Eval 1 completed: Yes
--- NOTE | 2025-01-04 10:38 | PCM.POSTANE2 ---
Anesthesia Postop Eval I Sum Postop Eval Completion status Anesthesia document: Postop Eval 1 completed: Yes Anesthesia Postop Eval I Summary Anesthesia Postop Eval I Summary: Anesthesia Postop Eval I: Assessment Summary Airway patent Yes 01/04/25 09:33 [email or web address] Spontaneous unlabored Yes 01/04/25 09:33 [email or web address] respirations Mental status Awake,Calm 01/04/25 09:33 [email or web address] nausea No 01/04/25 09:34 [email or web address] Vomiting No 01/04/25 09:34 [email or web address] Anesthesia Postop Eval I: Fluid Summary Crystalloid volume administer 200 01/04/25 09:34 [email or web address] (ml) Colloids volume administered ( ml) Blood Product volume administered (ml) Total IV fluid infused 200 01/04/25 09:34 [email or web address] Anesthesia Postop Eval I: Summary Notes Anesthesia Complication No 01/04/25 09:34 [email or web address] Anesthesia Complication Comment: Post-operative progress note Anesthesia: Postop Eval II Evaluation Mental status: Awake Pain Level: 0 nausea: No Vomiting: No Complications Anesthesia Complication: No
== END 2025-01-04 10:08 | disposition home or self-care (01) ==
LOC: SDC 08:03 → AC 08:04
PROVIDERS: PCP Family Medicine; Referring Provider Anesthesiology Pain Medicine; Visit Provider Anesthesiology Pain Medicine
PROC: 3E0S3BZ Introduction of Anesthetic Agent into Epidural Space, Percutaneous Approach (ICD-10-PCS; CPT 62282; principal; 2025-01-04 09:40)
DX: M51.17 Intervertebral disc disorders with radiculopathy, lumbosacral region (principal); M06.9 Rheumatoid arthritis, unspecified; M48.07 Spinal stenosis, lumbosacral region; E07.9 Disorder of thyroid, unspecified; Z79.890 Hormone replacement therapy; Z79.899 Other long term (current) drug therapy; Z87.891 Personal history of nicotine dependence
CPT/HCPCS: 62323; 64483; 77003

== ENCOUNTER → 2025-02-19 | Outpatient (CLI) | payer BC, SELFPAY ==
[2025-02-19 10:39] LABS: Hematocrit 38.9 % (37-47); Hemoglobin 13.4 g/dL (12.0-15.0); Immature Granulocytes Count 0.010 X10^3/uL (0.0-0.0); Mean Corp Hgb Conc 34.4 g/dL (32-36); Mean Corpuscular Volume 89.0 fL (81-99); Mean Platelet Vol. 10.5 fl (6.2-12.0); NRBC Flagged by Analyzer 0 % (0-5); Platelet Count 336 K/mm3 (150-450); RBC Distribution Width CV 13.1 % (11.6-14.6); RBC Distribution Width SD 41.8 fl (35.1-43.9); Red Blood Count 4.37 M/mm3 (4.2-5.4); White Blood Count 4.6 K/mm3 (4.4-11.0)
[2025-02-19 11:22] LABS: AST(SGOT) 22 U/L (<=31); Alanine Aminotransfer ALT/SGPT 25 U/L (<=34); Albumin, Serum 4.4 g/dL (3.5-5.0); Alkaline Phosphatase 67 U/L (35-104); Anion Gap 10 (5-15); BUN 16 mg/dL (4-19); BUN/Creat Ratio 22.3 RATIO (10-20); Calcium,Total 9.7 mg/dL (7.6-11.0); Carbon Dioxide 24.6 mmol/L (21.0-32.0); Chloride 107 mmol/L (98-108); Globulin 2.5 g/dL (2.2-4.2); Glucose 99 mg/dL (70-99); Potassium 4.1 mmol/L (3.3-5.1)
== END | disposition home or self-care (01) ==
PROVIDERS: PCP Family Medicine; Referring Provider Internal Medicine Rheumatology; Visit Provider Internal Medicine Rheumatology
DX: M06.079 Rheumatoid arthritis without rheumatoid factor, unspecified ankle and foot (principal); M79.7 Fibromyalgia; Z79.899 Other long term (current) drug therapy
CPT/HCPCS: 36415; 80053; 85025

== ENCOUNTER → 2025-03-18 | Outpatient (CLI) | payer BC, SELFPAY ==
--- OUTSIDE RECORDS SUMMARY | 2025-03-18 06:08 | XMS RPT_ITS | CCD ---
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 Vargas Serra Primary Care Provider MD Jass Valderrama Emergency Provider Dr. Noel Roberts Admit Provider Dr. Noel Roberts Attending Provider Dr. Noel Roberts Other Provider MICHELLE Estevez Attending Provider Dr. Vargas Serra Referring Provider [phone] Dr. Vargas Serra Primary Care Provider MD Jass Valderrama Emergency Provider Dr. Noel Roberts Admit Provider Dr. Noel Roberts Attending Provider Dr. Noel Roberts Other Provider MICHELLE Estevez Attending Provider Dr. Vargas Serra Referring Provider [phone] Dr. Vargas Serra Primary Care Provider Dr. Noel Roberts Attending Provider Dr. Noel Roberts Other Provider Dr. Vargas Serra Primary Care Provider Dr. Vargas Serra Referring Provider [phone] Dr. Noel Roberts Attending Provider [phone] MARYSE DO, VARGAS Attending Unavailable MARYSE DO, VARGAS Primary Care Unavailable MARYSE DO, VARGAS Attending Unavailable MARYSE DO, VARGAS Primary Care Unavailable MARYSE DO, VARGAS Attending Unavailable MARYSE DO, VARGAS Primary Care Unavailable BULL MEDICATION TECHNICIAN-LEADITE HEATER, RONAK Attending Unavail able MARYSE DO, VARGAS Primary Care Unavailable MARYSE DO, VARGAS Attending Unavailable MARYSE DO, VARGAS Primary Care Unavailable MARYSE DO, VARGAS Primary Care Physician Vargas Serra DO Primary Care Provider [phone] VARGAS SERRA Primary Care Unavailable DEMOND, INDIRA S Referring Unavailable VARGAS SERRA M Primary Care Unavailable DEMOND, INDIRA S Attending Unavailable VARGAS SERRA Primary Care Unavailable SELF Referring Unavailable Dr. Vargas Serra DO Primary Care Provider 1([phone] Dr. Sheyla Cruz MD Attending Provider Dr. Sheyla Cruz MD Referring Provider Dr. Vargas Serra DO Referring Provider Jacqueline Benavidez Attending Provider Dr. Howard Michelle DO Emergency Provider Dr. Vargas Serra DO Primary Care Provider [phone] Dr. Sheyla Cruz MD Attending Provider Dr. Sheyla Cruz MD Referring Provider Dr. Howard Michelle DO Attending Provider Dameon TEJEDA, Dr. Shelby Attending Provider Dameon TEJEDA, Dr. Shelby Referring Provider MARYSE DO, VARGAS Attending Unavailable MARYSE DO, VARGAS Primary Care Unavailable MARYSE DO, VARGAS Attending Unavailable MARYSE DO, VARGAS Primary Care Unavailable MARYSE DO, VARGAS Primary Care Unavailable BULL MEDICATION TECHNICIAN-LEADITE HEATER, RONAK Attending Unavail able MARYSE DO, VARGAS Attending Unavailable MARYSE DO, VARGAS Primary Care Unavailable MARYSE DO, VARGAS Primary Care Unavailable MARYSE DO, VARGAS Attending Unavailable Maryse DO, Dr. Farias Primary Care Provider [phone] Anthony TEJEDA, Dr. Carrion Attending Provider Anthony TEJEDA, Dr. Carrion Referring Provider Vellanki, Sheyla Referring Unavailable Vellanki, Sheyla Attending Unavailable Maryse, Vargas Primary Care Unavailable Vellanki, Sheyla Referring Unavailable Vellanki, Sheyla Attending Unavailable Maryse, Vargas Primary Care Unavailable Mike, Jacqueline Attending Unavailable Maryse, Vargas Primary Care Unavailable Mike, Jacqueline Referring Unavailable BorNoel mujica Attending Unavailable Maryse, Vargas Primary Care Unavailable Maryse, Vargas Referring Unavailable Mike, Jacqueline Attending Unavailable Maryse, Vargas Primary Care Unavailable Maryse, Vargas Referring Unavailable Mike, Jacqueline Attending Unavailable Maryse, Vargas Primary Care Unavailable Maryse, Vargas Primary Care Unavailable Noel Roberts Attending Unavailable Maryse, Vargas Referring Unavailable Vellanki, Sheyla Referring Unavailable Vellanki, Sheyla Attending Unavailable Maryse, Vargas Primary Care Unavailable Vellanki, Sheyla Attending Unavailable Vellanki, Sheyla Referring Unavailable Maryse, Vargas Primary Care Unavailable Maryse, Vargas Primary Care Unavailable Noel Roberts Referring Unavailable Noel Roberts Attending Unavailable Maryse, Vargas Primary Care Unavailable Noel Roberts Referring Unavailable Noel Roberts Attending Unavailable Howard Michelle Attending Unavailable Maryse, Vargas Primary Care Unavailable Maryse, Vargas Primary Care Unavailable Heron Xiao Referring Unavailable DameonHeron Attending Unavailable Maryse, Vargas Primary Care Unavailable Dameon Heron Referring Unavailable DameonHeron Attending Unavailable Maryse, Vargas Primary Care Unavailable Noel Roberts Referring Unavailable Noel Roberts Attending Unavailable Allergies Allergy Classification Reported Allergen(s) Allergy Type Date of Onset Reaction(s) Facility (12 sources) cefTRIAXone; Translations: [Ceftriaxone] Drug Allergy 3 Edema (finding) [facility] Work Phone: (20 sources) cefTRIAXone; Translations: [CEFTRIAXONE SODIUM] Drug Allergy 6 Hives [facility] Work Phone: (20 sources) oxyCODONE; Translations: [OXYCODONE] Drug Allergy 8 GI Upset [facility] (1 source) oxyCODONE Drug Allergy 5 [facility] Repository Medications Current Medications Medication Drug Class(es) Dates Sig (Normalized) Sig (Original) acetaminophen 325 mg oral capsule (4 sources) Start: 04-08-2019 take 325 mg by mouth every six hours Acetaminophen Active 325 MG PO EVERY 6 HOURS April 08, 2019 12:00am Biotin (20 sources) Start: 09-11-2019 take 1 dose by mouth once daily biotin Dose : 10,000 mcg =, Oral, qDay, 0 Refill(s) Start Date: 09/11/19 Status: Ordered Start: 11-27-2017 End: 04-08-2019 take 1 tablet by mouth once daily Biotin 1 MG tablet Discontinued 1 mg PO DAILY November 27, 2017 12:00am April 08, 2019 1:27pm 24 hr buPROPion hydrochloride 150 mg extended release oral tablet (2 sources) Aminoketone Start: 11-03-2021 take 1 tablet by mouth every hour, then take 1 tablet by mouth every twenty-four hours Wellbutrin XL 150 mg/24 hours oral tablet, extended release Dose : 150 mg = 1 tab(s), Oral, q24h, # 30 tab(s), 1 Refill(s), Pharmacy: [facility], Anxiety Depression, 172, cm, 11/03/21 16:03:00 EDT, Height Start Date: 11/03/21 Status: Ordered cholecalciferol 0.05 mg oral capsule (4 sources) Vitamin D Start: 04-08-2019 take 2000 [IU] by mouth once daily Cholecalciferol (Vitamin D3) Active 2000 UNIT PO DAILY April 08, 2019 12:00am ciprofloxacin 500 mg oral tablet (1 source) Quinolone Antimicrobial Start: 04-27-2023 take 500 mg by mouth twice daily Ciprofloxacin Hcl Active 500 MG PO TWICE A DAY 24 05April 27, 2023 12:00am cyclobenzaprine hydrochloride 10 mg oral tablet (7 sources) Muscle Relaxant Start: 10-18-2023 take 1 tablet by mouth three times daily as needed for muscle spasms Cyclobenzaprine 10 mg tablet Active 10 mg PO THREE TIMES A DAY as needed for Muscle Spasm 20 0 October 18, 2023 12:00am doxycycline hyclate 100 mg oral tablet (1 source) Tetracycline-clas s Drug Start: 05-24-2022 End: 06-03-2022 take 1 tablet by mouth twice daily doxycycline (VIBRA-TABS) 100 mg tablet Take 1 tablet by mouth twice daily for 10 days. 20 tablet 0 05/24/2022 06/03/2022 Active Comment on above: Take 1 tablet by karthikeyan th twice daily for 10 days. estradiol 0.5 mg oral tablet (5 sources) Estrogen Start: 09-18-2023 take 1 tablet by mouth once Estradiol (ESTRACE) 0.5 mg tablet Take 1 tablet by mouth every afternoon. 09/18/2023 Active Start: 08-12-2023 Estrace 0.5 mg oral tablet Dose : 0.5 mg = 1 tab(s), Oral, qDay, # 30 tab(s), 2 Refill(s), Pharmacy: [facility], Menopausal symptoms, 172.5, cm, 07/03/23 11:27:00 EST, Height, kg, 07/03/23 11:22:00 EST, Dosing Weight Start Date: 08/12/23 Status: Ordered Comment on above: Take 1 tablet by karthikeyan th every afternoon. folic acid 1 mg oral tablet (20 sources) Start: 10-15-2023 take 1 tablet by mouth once daily Folic Acid 1 mg tablet Active 1 mg PO DAILY October 15, 2023 12:00am Start: 07-03-2023 folic acid qDa y, 0 Refill(s) Start Date: 07/03/23 Status: Ordered Repeat number: 1 Start: 07-03-2023 folic acid qDa y, 0 Refill(s) Start Date: 07/03/23 Status: Ordered Start: 06-20-2020 FOLIC ACID TAB S 1 tablet daily FOLIC ACID TABS [id number] Jany Junaid VALLECILLO Start: 08-19-2019 folic acid 1 m g oral tablet Dose : 1 mg = 1 tab(s), Oral, qDay, # 90 tab(s), 0 Refill(s) Start Date: 08/19/19 Status: Ordered Start: 11-27-2017 End: 04-23-2023 take 2 tablets by mouth once daily Folic Acid 1 MG tablet Discontinued 2 mg PO DAILY@799November 27, 2017 12:00am April 23, 2023 9:47pm Start: 11-27-2017 End: 04-23-2023 take 2 mg by mouth once daily Folic Acid Discontinued 2 MG PO DAILY@799November 27, 2017 12:00am April 23, 2023 9:47pm FOLIC ACID ORAL Take by mouth. Active FOLIC ACID ORAL Take by mouth. 0 Active Comment on above: Take by mouth. leucovorin 15 mg oral tablet (20 sources) Folate Analog Start: 10-14-2023 take 1 tablet by mouth every week leucovorin 15 mg oral tablet TAKE 1 TABLET BY MOUTH once weekly Start Date: 10/14/23 Status: Ordered Repeat number: 1 Start: 11-27-2017 End: 04-08-2019 Leucovorin Calcium 15 MG tab let Discontinued 15 mg PO FR November 27, 2017 12:00am April 08, 2019 1:29pm levothyroxine sodium 0.112 mg oral tablet (20 sources) l-Thyroxine Start: 04-23-2024 levothyroxine 112 mcg (0.112 mg) oral tablet Dose : 112 mcg = 1 tab(s), Oral, qDay, Take with liothyronine., # 90 tab(s), 1 Refill(s), Pharmacy: [facility], Hypothyroidism, 171.5, cm, 04/23/24 16:47:00 EDT, Height, kg, 04/23/24 16:47:00 EDT, Dosing Weight Start Date: 04/23/24 Status: Ordered Start: 03-11-2024 levothyroxine 112 mcg (0.112 mg) oral tablet Dose : 112 mcg = 1 tab(s), Oral, qDay, Take with liothyronine., # 30 tab(s), 0 Refill(s), Pharmacy: [facility]30, Hypothyroidism, 172.5, cm, 10/14/23 14:36:00 EDT, Height, kg, 10/14/23 14:36:00 EDT, Dosing Weight Start Date: 03/11/24 Status: Ordered Start: 07-03-2023 End: 07-17-2023 levothyroxine 112 mcg (0.112 mg) oral tablet Dose : 112 mcg = 1 tab(s), Oral, qDay, Take with liothyronine. Decrease dose, # 90 tab(s), 0 Refill(s), Pharmacy: [email or web address], Hypothyroidism, 172.5, cm, 07/03/23 11:27:00 EST, Height, kg, 07/03/23 11:22:00 EST, Dosing Weight Start Date: 07/03/23 Status: Ordered Start: 07-25-2022 levothyroxine 125 mcg (0.125 mg) oral tablet Dose : 125 mcg = 1 tab(s), Oral, qDayAC, # 90 tab(s), 1 Refill(s), Pharmacy: [email or web address], Hypothyroidism, 172, cm, 07/05/22 15:45:00 EST, Height, kg, 07/05/22 15:45:00 EST, Dosing Weight Start Date: 07/25/22 Status: Ordered Start: 10-23-2021 levothyroxine 125 mcg (0.125 mg) oral tablet Dose : 125 mcg = 1 tab(s), Oral, qDayAC, # 90 tab(s), 1 Refill(s), Pharmacy: [facility], Hypothyroidism, 174, cm, 09/12/21 16:03:00 EST, Height, kg, 09/12/21 16:03:00 EST, Dosing Weight Start Date: 10/23/21 Status: Ordered Start: 09-09-2021 levothyroxine 125 mcg (0.125 mg) oral tablet Dose : 125 mcg = 1 tab(s), Oral, qDayAC, # 30 tab(s), 0 Refill(s), Pharmacy: [facility], Hypothyroidism, 172.3, cm, 05/11/21 16:10:00 EDT, Height, kg, 05/11/21 16:10:00 EDT, Dosing Weight Start Date: 09/09/21 Status: Ordered Start: 06-20-2020 LEVOTHYROXINE SODIUM 125 MCG TABS 1 tablet 4 times weekly LEVOTHYROXINE SODIUM [id number] Jany Quiroga SOLDERER ASSEMBLER Start: 06-20-2020 LEVOTHYROXINE SODIUM 112 MCG TABS 3 times weekly LEVOTHYROXINE SODIUM [id number] Jany Quiroga SOLDERER ASSEMBLER Start: 06-25-2013 take 1 tablet by karthikeyan th once daily Levothyroxine 112 MCG tablet Active 112 ug PO DAILY June 25, 2013 1:00am Start: 06-25-2013 Levothyroxine 112 MCG tablet Active 125 ug PO DAILY June 25, 2013 1:00am Start: 06-25-2013 take 125 ug by mouth once daily Levothyroxine Active 125 MCG PO DAILY June 25, 2013 1:00am Comment on above: Take 112 mcg by mout h once daily. liothyronine sodium 0.005 mg oral tablet (20 sources) l-Triiodothyronine Start: 04-23-2024 liothyronine 5 mcg oral tablet Dose : 5 mcg = 1 tab(s), Oral, qDay, Take with levothyroxine, # 90 tab(s), 1 Refill(s), Pharmacy: [email or web address], Hypothyroidism, 171.5, cm, 04/23/24 16:47:00 EDT, Height, kg, 04/23/24 16:47:00 EDT, Dosing Weight Start Date: 04/23/24 Status: Ordered Start: 04-08-2024 End: 04-22-2024 liothyronine 5 mcg oral tabl et Dose : 5 mcg = 1 tab(s), Oral, Daily, Take with levothyroxine\, # 14 tab(s), 0 Refill(s), Pharmacy: [facility], Hypothyroidism, 172.5, cm, 10/14/23 14:36:00 EDT, Height, kg, 10/14/23 14:36:00 EDT, Dosing Weight Start Date: 04/08/24 Stop Date: 04/22/24 Status: Ordered Start: 05-08-2023 liothyronine 5 mcg oral tablet Dose : 5 mcg = 1 tab(s), Oral, Daily, Take with levothyroxine, # 90 tab(s), 1 Refill(s), Pharmacy: [email or web address], Hypothyroidism, 172.5, cm, 05/08/23 16:03:00 EDT, Height, kg, 05/08/23 16:03:00 EDT, Dosing Weight Start Date: 05/08/23 Status: Ordered Start: 04-23-2023 take 1 tablet by karthikeyan th once daily Liothyronine 5 mcg tablet Active 5 ug PO DAILY April 23, 2023 12:00am Start: 07-20-2022 liothyronine 5 mcg oral tablet Dose : 5 mcg = 1 tab(s), Oral, Daily, Take with levothyroxine, # 90 tab(s), 1 Refill(s), Pharmacy: [email or web address], Hypothyroidism, 172, cm, 07/05/22 15:45:00 EST, Height Start Date: 07/20/22 Status: Ordered Comment on above: Take 1 tablet by karthikeyan once daily. methotrexate 2.5 mg oral tablet (20 sources) Folate Analog Metabolic Inhibitor Start: 12-30-2024 Methotrexate Sodium 2.5 mg tablet Active 17.5 mg PO PEREZ December 30, 2024 12:00am Start: 09-09-2024 End: 12-30-2024 take 2.5 mg by mouth every week Methotrexate 2.5 mg/mL solution Discontinued 2.5 mg PO EVERY WEEK September 09, 2024 1:00am December 30, 2024 8:52am Start: 07-03-2023 methotrexate 0 Refill(s) Start Date: 07/03/23 Status: Ordered Repeat number: 1 Start: 07-03-2023 methotrexate 0 Refill(s) Start Date: 07/03/23 Status: Ordered Start: 08-19-2019 take 7 tablets by mo [facility] every week methotrexate 2.5 mg oral tablet See Instructions, 7 tab(s) Oral once a week., 0 Refill(s) Start Date: 08/19/19 Status: Ordered Start: 08-19-2019 take 6 tablets by mo [facility] every week methotrexate 2.5 mg oral tablet See Instructions, 6 tab(s) Oral once a week., 0 Refill(s) Start Date: 08/19/19 Status: Ordered Start: 07-04-2019 End: 04-23-2023 Methotrexate Sodium 2.5 MG t ablet Discontinued 12.5 mg PO FR July 04, 2019 1:00am April 23, 2023 9:47pm Start: 07-04-2019 End: 04-23-2023 Methotrexate Sodium Disconti nued 12.5 MG PO FR July 04, 2019 1:00am April 23, 2023 9:47pm Start: 11-27-2017 End: 04-08-2019 Methotrexate Sodium 2.5 MG t ablet Discontinued 12.5 mg PO FR November 27, 2017 12:00am April 08, 2019 1:28pm Start: 11-27-2017 End: 04-08-2019 Methotrexate Sodium Disconti nued 12.5 MG PO FR November 27, 2017 12:00am April 08, 2019 1:28pm Start: 09-30-2015 methotrexate s odium (TREXALL) 5 mg tablet Not sure dose: takes 5 tabs once a week 09/30/2015 Active Comment on above: Not sure dose: takes 5 tabs once a week metroNIDAZOLE 500 mg oral tablet (2 sources) Nitroimidazole Antimicrobial Start: 05-25-2024 End: 06-01-2024 metroNIDAZOLE 500 mg oral tablet Dose : 500 mg = 1 tab(s), Oral, BID, do not drink alcohol may take with food to minimize abdominal discomfort, X 7 day(s), # 14 tab(s), 0 Refill(s), 06/01/24 2:58:00 PM EDT, Pharmacy: [facility], Bacterial vaginosis, 171.5, cm, 05/14/24 16:03:00 EDT, Height, 96.2, kg, 05/14/24 16:03:00 EDT, Dosing Weight Start Date: 05/25/24 Stop Date: 06/01/24 Status: Ordered Start: 05-07-2022 End: 05-14-2022 metroNIDAZOLE 500 mg oral ta blet Dose : 500 mg = 1 tab(s), Oral, q12h, X 7 day(s), # 14 tab(s), 0 Refill(s), 05/14/22 11:17:00 EDT, Pharmacy: [facility], Bacterial vaginitis, 172, cm, 11/03/21 16:03:00 EDT, Height, 89 Start Date: 05/07/22 Stop Date: 05/14/22 Status: Ordered omeprazole 20 mg delayed release oral capsule (20 sources) Proton Pump Inhibitor Start: 11-11-2007 End: 04-24-2024 omeprazole 20 mg oral delayed release capsule Dose : 20 mg = 1 cap(s), Oral, qDay, # 30 cap(s), 0 Refill(s), Pharmacy: [facility], Chronic GERD, 171.5, cm, 12/24/24 15:47:00 EDT, Height, kg, 12/24/24 15:47:00 EDT, Dosing Weight Start Date: 01/12/25 Status: Ordered Quantity: 30.0 Unit: cap(s) Repeat number: 1 Indications: Gastro-esophageal reflux disease without esophagitis; Comment on above: Take one(1) capsule daily. PARoxetine hydrochloride 20 mg oral tablet (4 sources) Serotonin Reuptake Inhibitor Start: 07-17-2023 Paxil 20 mg oral tab let Dose : 20 mg = 1 tab(s), Oral, qDay, Take daily after completion 2-week course of 10 mg tablets. Short-term prescription to see if works, # 30 tab(s), 0 Refill(s), Pharmacy: [facility], Hot flashes due to menopause, 172.5, cm, 07/03/23 11:27:00 EST, Height, kg, 07/03/23 11:22:00 EST, Dosing Weight Start Date: 07/17/23 Status: Ordered Start: 07-17-2023 Paxil 20 mg or al tablet Dose : 20 mg = 1 tab(s), Oral, qDay, Take daily after completion 2-week course of 10 mg tablets. Short-term prescription to see if works, # 30 tab(s), 0 Refill(s), Pharmacy: [facility], Hot flashes due to menopause, 172.5, cm, 07/03/23 11:27:00 EST, Height, kg, 07/03/23 11:22:00 EST, Dosing Weight Start Date: 07/17/23 Status: Ordered Start: 07-03-2023 End: 07-17-2023 take 1 tablet by mouth once daily Paxil 10 mg oral tablet Dose : 10 mg = 1 tab(s), Oral, qDay, Take daily for 2 weeks. Then start 20 mg daily., # 14 tab(s), 0 Refill(s), Pharmacy: [facility], Hot flashes due to menopause, 172.5, cm, 07/03/23 11:27:00 EST, Height, kg, 07/03/23 11:22:00 EST, Dosing Weight Start Date: 07/03/23 Stop Date: 07/17/23 Status: Ordered polyethylene glycol 3350 [id number] mg / potassium chloride 2970 mg / sodium bicarbonate 6740 mg / sodium chloride 5860 mg / sodium sulfate 36975 mg powder for oral solution (2 sources) Osmotic Laxative Start: 05-21-2023 take 4000 mL by mouth once Peg 3350-Electrolytes Active 4000 ML PO ONCE 4000 May 21, 2023 12:00am until fecal effluent is clear; do not exceed a total volume of 4000 mL pregabalin 100 mg oral capsule (20 sources) Start: 05-11-2021 take 1 tablet by mouth twice daily pregabalin 100 mg oral capsule TAKE 1 TABLET BY MOUTH TWICE DAILY Start Date: 05/11/21 Status: Ordered Start: 03-12-2021 End: 04-23-2023 take 1 capsule by mouth once daily Pregabalin 75 mg capsule Discontinued 75 mg PO DAILY March 12, 2021 12:00am April 23, 2023 9:47pm 24 hr tofacitinib 11 mg extended release oral tablet (16 sources) Start: 04-30-2022 XELJANZ XR 11 mg tablet, extended release 04/30/2022 Active traMADol hydrochloride 50 mg oral tablet (8 sources) Opioid Agonist Start: 05-14-2024 take 1 tablet by mouth three times daily as needed for pain Tramadol 50 mg tablet Active 50 mg PO THREE TIMES A DAY as needed for pain September 09, 2024 1:00am Start: 04-27-2023 take 50 mg by mouth every six hours as needed Tramadol Active 50 MG PO EVERY 6 HOURS NEEDED 05 09April 27, 2023 12:00am triamcinolone acetonide 0.25 mg/ml topical cream (1 source) Corticosteroid Start: 04-09-2023 End: 04-23-2023 triamcinolone (KENALOG) 0.025 % cream Apply to affected area twice daily for 14 days. 80 g 0 04/09/2023 04/23/2023 Active Comment on above: Apply to affected ar ea twice daily for 14 days. Completed/Discontinued Medications Medication Drug Class(es) Dates Sig (Normalized) Sig (Original) 1 ml abatacept 125 mg/ml prefilled syringe (20 sources) Selective T Cell Costimulation Modulator Start: 06-20-2020 ORENCIA 125 MG/ML SOSY 1 injection daily ABATACEPT [id number] Jany Quiroga AVEL Start: 08-19-2019 Orencia ClickJ ect 125 mg/mL subcutaneous solution Dose = 125 mg, Subcutaneous, qWeek, (rotate injection sites), 4 EA, 0 Refill(s), Syringe Start Date: 08/19/19 Status: Ordered Start: 08-19-2019 Orencia ClickJ ect 125 mg/mL subcutaneous solution Dose = 125 mg, Subcutaneous, qWeek, (rotate injection sites), 4 EA, 0 Refill(s), Syringe Start Date: 08/19/19 Status: Ordered Start: 11-27-2017 End: 04-23-2023 Abatacept 125 MG/ML syringe Discontinued 125 mg SQ FR November 27, 2017 12:00am April 23, 2023 9:47pm Start: 11-27-2017 End: 04-23-2023 Abatacept Discontinued 125 M G SQ FR November 27, 2017 12:00am April 23, 2023 9:47pm End: 10-01-2023 ABATACEPT (ORENCIA SUBCUTANE OUS) Inject subcutaneously once each week. 0 10/01/2023 Discontinued ABATACEPT (ORENC IA SUBCUTANEOUS) Inject subcutaneously once each week. 0 Active Comment on above: Inject subcutaneousl y once each week. acetaminophen 325 mg / HYDROcodone bitartrate 5 mg oral tablet (20 sources) Opioid Agonist Start: 12-05-2017 End: 04-08-2019 Hydrocodone-Acetaminophe n 1 EACH tablet Discontinued 1 NMA PO EVERY 4 HOURS NEEDED as needed for Severe Pain (6-10/10) 20 7 0 December 05, 2017 9:32am April 08, 2019 1:27pm Other acute postprocedural pain Start: 12-05-2017 End: 04-08-2019 Hydrocodone-Acetaminophen Di scontinued 1 EACH PO EVERY 4 HOURS NEEDED 20 7 December 05, 2017 9:32am April 08, 2019 1:27pm End: 10-01-2023 hydrocodone/acetaminophen (V ICODIN ORAL) Take by mouth. 0 10/01/2023 Discontinued hydrocodone/acet aminophen (VICODIN ORAL) Take by mouth. 0 Active Comment on above: Take by mouth. Amitriptyline (7 sources) Tricyclic Antidepressant End: 10-01-2023 amitriptyline HCl (AMITRIPTYLINE ORAL) Take by mouth. 0 10/01/2023 Discontinued amitriptyline HC l (AMITRIPTYLINE ORAL) Take by mouth. 0 Active Comment on above: Take by mouth. amoxicillin 500 mg / clavulanate 125 mg oral tablet (8 sources) Penicillin-class Antibacterial Start: 10-15-2023 End: 10-29-2023 Amoxicillin-Pot Clavulanate (Augmentin) 500-125 mg tablet Discontinued 1 {tbl} PO TWICE A DAY 28 14 0 October 15, 2023 12:00am October 28, 2023 12:00am October 29, 2023 12:05am Start: 04-27-2023 take 1 tablet by karthikeyan twice daily Amoxicillin-Pot Clavulanate Active 1 TABLET PO TWICE A DAY 24 05April 27, 2023 12:00am baclofen 10 mg oral tablet (3 sources) gamma-Aminobutyric Acid-ergic Agonist Start: 05-14-2024 take 0.5-1 tablets by mouth three times daily as needed for muscle spasms baclofen 10 mg tablet baclofen 10 mg tablet, TAKE 1/2 (ONE-HALF) TO 1 (ONE) TABLET BY MOUTH THREE TIMES DAILY NEEDED FOR SPASMS Start Date: 05/14/24 Status: Ordered Repeat number: 1 benzonatate 100 mg oral capsule (5 sources) Non-narcotic Antitussive Start: 05-24-2022 End: 10-01-2023 take 2 capsules by mouth every eight hours as needed benzonatate (TESSALON PERLES) 100 mg capsule Take 2 capsules by mouth three times daily as needed. 30 capsule 0 05/24/2022 10/01/2023 Discontinued Comment on above: Take 2 capsules by m out three times daily as needed. dicyclomine hydrochloride 10 mg oral capsule (8 sources) Anticholinergic Start: 10-18-2023 End: 11-07-2023 take 1 capsule by mouth three times daily as needed for pain Dicyclomine 10 mg capsule Discontinued 10 mg PO THREE TIMES A DAY as needed for abdominal pain 20 0 October 18, 2023 5:43pm November 07, 2023 2:36pm Start: 05-11-2021 End: 07-10-2021 dicyclomine 20 mg oral table t Dose : 20 mg = 1 tab(s), Oral, QID, # 120 tab(s), 1 Refill(s), Pharmacy: [id number], Chronic GERD Bloating, 172.3, cm, 05/11/21 16:10:00 EDT, Height, kg, 05/11/21 16:10:00 EDT, Dosing Weight Start Date: 05/11/21 Stop Date: 07/10/21 Status: Ordered docusate sodium 100 mg oral capsule (20 sources) Start: 12-04-2017 End: 04-08-2019 take 1 capsule by mouth twice daily as needed for constipation Docusate Sodium 100 MG capsule Discontinued 100 mg PO TWICE A DAY as needed for Constipation 30 0 December 04, 2017 12:59pm April 08, 2019 1:27pm ergocalciferol 1.25 mg oral capsule (7 sources) Provitamin D2 Compound Start: 06-20-2018 End: 10-01-2023 take 1 capsule by mouth every week VITAMIN D 50,000 unit capsule Take 1 capsule by mouth once each week. 0 06/20/2018 10/01/2023 Discontinued Comment on above: Take 1 capsule by [facility] once each week. erythromycin 0.005 mg/mg ophthalmic ointment (7 sources) Macrolide, Macrolide Antimicrobial Start: 05-08-2018 End: 10-01-2023 erythromycin ophthalmic ointment Apply 1/2 inch ribbon per application. To both eyes and incisions. 4 times a day for 1 week, then 2 times a day for 1 week 1 Tube 1 05/08/2018 10/01/2023 Discontinued Comment on above: Apply 1/2 inch ribbo n per application. To both eyes and incisions. 4 times a day for 1 week, then 2 times a day for 1 week hydrOXYzine hydrochloride 25 mg oral tablet (2 sources) Antihistamine Start: 11-03-2021 End: 12-03-2021 hydrOXYzine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 Comment on above: Performed By: #### L 500.4050, L100.0100 ####[facility] [address] [place], [address] Urea nitrogen [Mass/Vol] 16 mg/dL Normal 4-19 [facility] Comment on above: Performed By: #### L 500.4050, L100.0100 ####[facility] [address] [place], [address] Eosinophil percentageOrdered By: Sheyla Cruz on 02-19-2025 Eosinophils/100 WBC (Bld) 3.9 % 0-5 [facility] Erythrocyte distribution wid th ratioOrdered By: Sheyla Cruz on 02-19-2025 Erythrocyte distribution width (RBC) [Ratio] 13.1 % 11.6-14.6 [facility] Erythrocyte distribution wid th standard deviationOrdered By: Sheyla Cruz on 02-19-2025 Erythrocyte distribution width (RBC) [Ratio] 41.8 fl 35.1-43.9 [facility] Glomerular filtration rate ( GFR) estimation/1.73 sq m using serum, plasma, or whole bOrdered By: Sheyla Cruz on 02-19-2025 GFR/1.73 sq M.predicted among non-blacks MDRD (S/P/Bld) [Vol rate/Area] 101 mL/min/{1.73_m2} >60 [facility] Comment on above: mL/min/1.73m2 CKD-EP I Creatinine Equation (2020) Hematocrit Auto (Bld) [Volum e fraction]Ordered By: Sheyla Cruz on 02-19-2025 Hematocrit (Bld) [Volume fraction] 38.9 % 37-47 [facility] Hemoglobin measurementOrdere d By: Sheyla Cruz on 02-19-2025 Hemoglobin (Bld) [Mass/Vol] 13.4 g/dL 12.0-15.0 [facility] Immature granulocytes/100 WB C Auto (Bld)Ordered By: Sheyla Cruz on 02-19-2025 Immature granulocytes/100 WBC (Bld) 0.200 % 0.0-0.9 [facility] Comment on above: IG% - Immature Granu locytes (promyelocytes, myelocytes and metamyelocytes) > 1% indicates that a LEFT SHIFT is Present. Laboratory - Chemistry and C hemistry - challengeOrdered By: Sheyla Cruz on 02-19-2025 AST [Catalytic activity/Vol] 22 U/L <32 [facility] MCV (mean corpuscular volume ) determinationOrdered By: Sheyla Cruz on 02-19-2025 MCV (RBC) [Entitic vol] 89.0 fL 81-99 [facility] Mean corpuscular hemoglobin (MCH) determinationOrdered By: Sheyla Cruz 02-19-2025 MCH (RBC) [Entitic mass] 30.7 pg 27.0-32.0 [facility] Mean corpuscular hemoglobin concentration (MCHC) determinationOrdered By: Sheyla Cruz on 02-19-2025 MCHC (RBC) [Mass/Vol] 34.4 g/dL 32-36 [facility] Mean platelet volume determi nationOrdered By: Sheyla Cruz on 02-19-2025 Platelet mean volume (Bld) [Entitic vol] 10.5 fL 6.2-12.0 [facility] Monocyte percentageOrdered B y: Sheyla Cruz on 02-19-2025 Monocytes/100 WBC (Bld) 8.7 % 0-10 [facility] Neutrophil percentageOrdered By: Sheyla Cruz on 02-19-2025 Neutrophils/100 WBC (Bld) 48.0 % 47-70 [facility] Nucleated red blood cell per centageOrdered By: Sheyla Cruz on 02-19-2025 Nucleated RBC/100 WBC (Bld) [Ratio] 0 % 0-5 [facility] Platelet countOrdered By: Eusebio Cruz on 02-19-2025 Platelets (Bld) [#/Vol] 336 10*3/uL 150-450 [facility] Potassium measurement (mass/ volume)Ordered By: Sheyla Cruz on 02-19-2025 Potassium (Unsp spec) [Mass/Vol] 4.1 mmol/L 3.3-5.1 [facility] RBC Auto (Bld) [#/Vol]Ordere d By: Sheyla Cruz on 02-19-2025 RBC (Bld) [#/Vol] 4.37 10*6/uL 4.2-5.4 [facility] Serum creatinine measurement (mass/volume)Ordered By: Sheyla Cruz on 02-19-2025 Creatinine [Mass/Vol] 0.71 mg/dL 0.70-1.20 [facility] Serum globulin measurementOr dered By: Sheyla Cruz on 02-19-2025 Globulin (S) [Mass/Vol] 2.5 g/dL 2.2-4.2 [facility] Serum glucose measurement (m ass/volume)Ordered By: Sheyla Cruz on 02-19-2025 Glucose [Mass/Vol] 99 mg/dL 70-99 [facility] Serum or plasma alanine berrios otransferase (ALT) measurementOrdered By: Sheyla Cruz on 02-19-2025 ALT [Catalytic activity/Vol] 25 U/L <35 [facility] Serum or plasma albumin allan urement (mass/volume)Ordered By: Sheyla Cruz on 02-19-2025 Albumin [Mass/Vol] 4.4 g/dL 3.5-5.0 [facility] Serum or plasma albumin/glob ulin mass ratioOrdered By: Sheyla Cruz on 02-19-2025 Albumin/Globulin [Mass ratio] 1.8 {ratio} 0.9-2.4 [facility] Serum or plasma alkaline jroge alberto sphatase measurementOrdered By: Sheyal Cruz on 02-19-2025 ALP [Catalytic activity/Vol] 67 U/L 35-104 [facility] Serum or plasma calcium allan urement (mass/volume)Ordered By: Sheyla Cruz on 02-19-2025 Calcium [Mass/Vol] 9.7 mg/dL 7.6-11.0 [facility] Serum or plasma urea nitroge n measurement (mass/volume)Ordered By: Sheyla Cruz on 02-19-2025 Urea nitrogen [Mass/Vol] 16 mg/dL 4-19 [facility] Sodium levelOrdered By: Madeleine Cruz on 02-19-2025 Sodium [Moles/Vol] 141 mmol/L 133-145 [facility] Total proteinOrdered By: Estee Cruz on 02-19-2025 Protein [Mass/Vol] 6.9 g/dL 5.9-8.4 [facility] White blood cell (WBC) count Ordered By: Sheyla Cruz on 02-19-2025 WBC (Bld) [#/Vol] 4.6 10*3/uL 4.4-11.0 [facility] FT3on 01-20-2025 Free T3 [Mass/Vol] 2.35 pg/mL Normal 2.30-4.00 [facility] Comment on above: Performed By: #### T SH, FT4, FT3 #### [address] [address] FT4on 01-20-2025 Free T4 [Mass/Vol] 0.82 ng/dL Normal 0.76-1.46 [facility] Comment on above: Performed By: #### F T3, TSH, FT4 #### [address] [address] LABORATORYOrdered By: SYSTEM SYSTEM on 01-20-2025 Free T3 [Mass/Vol] 2.35 pg/mL Normal 2.30 - 4. 00 pg/mL AO ADM SS Free T4 [Mass/Vol] 0.82 ng/dL Normal 0.76 - 1. 46 ng/dL AO ADM SS TSH Qn 0.18 m[IU]/L Low 0.36 - 3.74 mcIU/mL AO ADM SS TSHon 01-20-2025 TSH Qn 0.18 m[IU]/L Low 0.36-3.74 [facility] Comment on above: Performed By: #### T SH, FT4, FT3 #### [facility] [address] [place], [place] [address] Fluor Guidance for Spine Inj on 01-04-20[address] Fluor Guidance [address] Spine Inj [facility] Imaging Services [address] [place] [address] Fluor Guidance for Spine Inj MR#: [id number] Acct: [id number] Name: JODI,ERLINDA JOYA Rep #: [id number] : 1970 F 54 From: Bereket Pimentel PCP: Dr. Vargas Serra DO Status: [facility] Study: Fluor Guidance for Spine Inj Date of Exam: 09/29 Exam# [id number] Ordering Dr: Heron Xiao MD PROCEDURE: FLUOR GUIDANCE FOR SPINE INJ 01/04/2025 REASON FOR EXAM: CAUDAL BLOCK TECHNIQUE: Fluoroscopy was performed for spine injection. COMPARISON: None. RAD/Fluor Guidance for Spine Inj IMPRESSION: Fluoroscopy was performed for spine injection. A solitary fluoroscopic image was also obtained. Reading Location: [id number] CC: Dr. Hreon Xiao MD; Dr. Vargas Serra DO Campus Director: Signed Normal [facility] MR/POSTOP.ANEon 01-04-2025 MR/POSTOP.[facility] Medical Records Department [address] [place] [address] Anesthesia Postop Eval I 01/04/25 0931 MR#: [id number] Acct: [id number] Name: ERLINDA ZAPATA Rep #: [id number] : 1970 54 From: Sage Michelle PCP: Dr. Vargas Serra, DO Status:[facility] Y Race: C Location: [place] [address] Anesthesia: Postop Eval I Current Vital Signs Temperature: 97.8 F Pulse Rate: 70 Blood Pressure: 129/78 Respiratory Rate: 16 Pulse Ox: 97 Oxygen Delivery Method: Room Air Assessment Airway patent: Yes Spontaneous unlabored respirations: Yes Mental status: Awake and Calm nausea: No Vomiting: No Anesthesia Complication: No Fluid Hydration Crystalloid volume administer (ml): 200 Total IV fluid infused: 200 Progress Note Anesthesia document: Postop Eval 1 completed: Yes 01/04/25933 Date Sage Acharyaignmihir Signature: Date CC: Signed Normal [facility] MR/[id number] [facility]-04-[facility] Medical Records Department [address] [place] [address] Anesthesia Postop Eval II 01/04/25 1038 MR#: [id number] Acct: [id number] Name: ERLINDA ZAPATA TOAN Rep #: [id number] : 1970 54 From: Suman May MD PCP: Dr. Vargas Serra, DO Status:[facility] Y Race: C Location: [facility] Anesthesia Postop Eval I Sum Postop Eval Completion status Anesthesia document: Postop Eval 1 completed: Yes Anesthesia Postop Eval I Summary Anesthesia Postop Eval I Summary: Anesthesia Postop Eval I: Assessment Summary Airway patent Yes 01/04/25 09:33 [email or web address] Spontaneous unlabored Yes 01/04/25 09:33 [email or web address] respirations Mental status Awake,Calm 01/04/25 09:33 [email or web address] nausea No 01/04/25 09:34 [email or web address] Vomiting No 01/04/25 09:34 [email or web address] Anesthesia Postop Eval I: Fluid Summary Crystalloid volume administer 200 01/04/25 09:34 [email or web address] (ml) Colloids volume administered ( ml) Blood Product volume administered (ml) Total IV fluid infused 200 01/04/25 09:34 [email or web address] Anesthesia Postop Eval I: Summary Notes Anesthesia Complication No 01/04/25 09:34 [email or web address] Anesthesia Complication Comment: Post-operative progress note Anesthesia: Postop Eval II Evaluation Mental status: Awake Pain Level: 0 nausea: No Vomiting: No Complications Anesthesia Complication: No 01/04/25 1038 Date Suman Acharyaigner Signature: Date CC: Signed Normal [facility] Operative Reporton 5 Operative Report [facility] Medical Records Department [address] [place] [address] Operative Report 01/04/25921 MR#: [id number] Acct: [id number] Name: JODIANGEL TRAYLORRad JOYA Rep #: [id number] : 1970 54 From: Heron Xiao MD PCP: Dr. Vargas Serra, DO Status:[facility] Location: [place] [address] Operative Report (Standard) Operative Information Date of Procedure: 01/04/25 Pre-Operative Diagnosis: Lumbosacral radiculopathy, lumbosacral degenerative disc disease, lumbosacral spinal stenosis Post-Operative Diagnosis: Lumbosacral radiculopathy, lumbosacral degenerative disc disease, lumbosacral spinal stenosis Surgery/Procedure Performed: Diagnostic/therapeutic caudal epidural steroid injection under fluoroscopic guidance ship's pilot: No Type of Anesthesia: Local MAC RN Documented Start/Stop Times: Operation Date: 01/04/25 09:45 Case Time Into Pre-Op 01/04/25 08:07 Anesthesia Start 01/04/25 09:12 Into Room 01/04/25 09:12 Procedure Start 01/04/25 09:17 Procedure End 01/04/25 09:21 Procedure Start Time: :23 Procedure Stop Time: : Select all DRAINS/GRAFTS/IMPLANTS that apply: None Estimated Blood Loss: 0 Specimen collected: No Description of surgery: ANESTHESIA: MAC. BLOOD LOSS: Minimal. COMPLICATIONS: None. DESCRIPTION OF PROCEDURE: History and physical of today was reviewed. Risks and benefits of the procedure were explained. The patient understood and agreed to proceed. Informed consent was obtained. IV inserted per routine protocol. The patient was taken to the operating room and placed in the prone position with a pillow positioned underneath the abdomen. The lower back and tailbone area was prepped and draped in a sterile fashion using iodine x3. Under fluoroscopy guidance on a lateral view, the caudal space was identified. The skin and subcutaneous tissue was anesthetized with approximately 3 mL of 1% lidocaine using a 25-gauge regular needle. Under direct visualization with fluoroscopy, using a 22-gauge 3-1/2-inch spinal needle, the needle was advanced via the skin through the sacral hiatus. The tip of the needle was passed through the sacrococcygeal ligament and advanced to approximately S4 area. After negative aspiration of blood or CSF, a total of 3 mL of contrast was injected to confirm correct placement of the needle as well as cephalad spread. The spread was followed to approximately L5 area. After confirmation on AP as well as lateral view and repeated negative aspiration, a total of 15 mL of preservative-free 0.125% Marcaine with 80 mg of Depo-Medrol was injected easily. The needle was then removed intact. The patient experienced no sign or symptoms of intrathecal or intravascular injection. The patient experienced no paresthesia. The procedure was completed without any apparent difficulty or any complications. The patient appeared to tolerate it well. ASSESSMENT AND PLAN: This is a 54-year-old female with lumbosacral radiculopathy, lumbosacral degenerative disc disease, lumbosacral spinal stenosis, status post diagnostic/therapeutic caudal epidural steroid injection under fluoroscopic guidance, patient will continue her current medications, patient will follow-up in approximately 2 weeks for reevaluation. Surgical Findings: 0 Complications Complications: No Admit VTE Documentation VTE Present on Admission: No VTE Mechan Device Prophylaxis: None VTE Pharm Prophylaxis ordered?: No 01/04/25 0923 Cosigner Signature (if applicable): CC: Dr. Heron Xiao MD; Dr. Vargas Serra, DO Signed Normal [facility] BVPCRon 12-29-2024 Bacterial Vaginosis Negative Normal Negative [facility] Comment on above: Result Comment: Mole cular methodology performed on the [employer] System. Performed By: #### N GPCR1, BVPCR, CTPCR, CVTV #### [place] [address] CVTVon 12-29-2024 Namita glabrata Negative Normal Negative [facility] Comment on above: Performed By: #### N GPCR1, BVPCR, CTPCR, CVTV #### [place] [address] Namita Species Negative Normal Negative [facility] Comment on above: Result Comment: Mole cular methodology performed on the [employer] System. Performed By: #### N GPCR1, BVPCR, CTPCR, CVTV #### [place] [address] Trichomonas vaginalis Negative Normal Negative [facility] Comment on above: Performed By: #### N GPCR1, BVPCR, CTPCR, CVTV #### [place] [address] CTPCRon 12-26-[address] C. trachomatis Interp See CT Interp N Normal See CT Interp N [facility] Comment on above: Result Comment: Clinical Interpretation: C. trachomatis DNA not detected. Specimen is presumptive negative for C. trachomatis. A negative result does not preclude C. trachomatis infection because results depend on adequate specimen collection, absence of inhibitors, and sufficient DNA to be detected. Performed By: #### N GPCR1, BVPCR, CTPCR, CVTV #### [place] [address] C.trachomatis PCR Negative Normal Negative [facility] Comment on above: Result Comment: Mole cular (PCR) assay performed on the [employer] 4800 system. Performed By: #### N GPCR1, BVPCR, CTPCR, CVTV #### [place] [address] Chlam Source Cervix Normal [facility] Comment on above: Performed By: #### N GPCR1, BVPCR, CTPCR, CVTV #### [facility] [address] [place] [address] [id number] 12-26-2024 GC PCR Source Cervix Normal [facility] Comment on above: Performed By: #### N GPCR1, BVPCR, CTPCR, CVTV #### [facility] [address] [place] [address] N. gonorrhoeae (PCR) Negative Normal Negative [facility] Comment on above: Result Comment: Mole cular (PCR) assay performed on the [employer] 4800 System. Performed By: #### N GPCR1, BVPCR, CTPCR, CVTV #### [facility] [address] [place], [place] [id number] N. gonorrhoeae Interp See NG Interp N Normal See NG Interp N [facility] Comment on above: Result Comment: Clinical Interpretation: N. gonorrhoeae DNA not detected. Specimen is presumptive negative for N. gonorrhoeae. A negative result does not preclude Neisseria gonorrhoeae infection because results depend on adequate specimen collection, absence of inhibitors, and sufficient DNA to be detected. Performed By: #### N GPCR1, BVPCR, CTPCR, CVTV #### [facility] [address] [place] [address] LABORATORYOrdered By: Nellie Blum on 12-24-2024 C. trachomatis DNA KERRY+probe Ql (Unsp spec) Negative 2 (12/24/24 4:33 PM) Normal Negative [facility] Comment on above: Interpretive Data: M olecular (PCR) assay performed on the [employer] 4800 system. C. trachomatis DNA KERRY+probe Ql (Unsp spec) See CT Interp N 3 (12/24/24 4:33 PM) Normal See CT Interp N [facility] Auto Viro/Sero SS Comment on above: Result Comment: Clinical Interpretation: C. trachomatis DNA not detected. Specimen is presumptive negative for C. trachomatis. A negative result does not preclude C. trachomatis infection because results depend on adequate specimen collection, absence of inhibitors, and sufficient DNA to be detected. N. gonorrhoeae DNA KRERY+probe Ql (Unsp spec) See NG Interp N 4 (12/24/24 4:33 PM) Normal See NG Interp N [facility] Auto Viro/Sero SS Comment on above: Result Comment: Clinical Interpretation: N. gonorrhoeae DNA not detected. Specimen is presumptive negative for N. gonorrhoeae. A negative result does not preclude Neisseria gonorrhoeae infection because results depend on adequate specimen collection, absence of inhibitors, and sufficient DNA to be detected. N. gonorrhoeae DNA KERRY+probe Ql (Unsp spec) Negative 1 (12/24/24 4:33 PM) Normal Negative [facility] Viro/Sero SS Comment on above: Interpretive Data: M mario (PCR) assay performed on the [employer] 48[employer] System. Laboratory - Specimen inform ationOrdered By: Adeola Blum on 12-24-2024 Specimen source Nom (Unsp spec) Cervix (12/24/24 4:33 PM) Normal Auto Viro/Sero SS FT3on 11-17-2024 Free T3 [Mass/Vol] 3.47 pg/mL Normal 2.30-4.00 [facility] Comment on above: Performed By: #### F T3, TSH, FT4 #### [address] [address] FT4on 11-17-2024 Free T4 [Mass/Vol] 1.13 ng/dL Normal 0.76-1.46 [facility] Comment on above: Performed By: #### F T3, TSH, FT4 #### [address] [address] TSHon 11-17-2024 TSH Qn 0.02 m[IU]/L Low 0.36-3.74 [facility] Comment on above: Performed By: #### F T3, TSH, FT4 #### [address] [address] HIV Viral Load Quanton 10-24 HIV-1 RNA, PCR < 20 Normal . [facility] Comment on above: Result Comment: HIV- 1 RNA not detected The reportable range for this assay is 20 to 10,000,000 copies HIV-1 RNA/mL. Performed By: #### L 3100.0200, L3100.0440, L3890.4000 #### [facility] [address] [facility] [place], [place], [id number] log10 HIV-1 RNA TNP Normal . [facility] Comment on above: Result Comment: Resu lt Units: [id number]/mL Unable to calculate result since non-numeric result obtained for component test. Performed at: [facility] [address] [id number] Equipment Maintenance Engineer: Yosi Mcdermott MD, Phone: [phone] Performed By: #### L 3100.0200, L3100.0440, L3890.4000 #### [facility] [address] [place] [address], [phone] Hepatitis A IgM Antibodyon 0 10-23-2024 HEPATITIS A-IgM Negative Normal Negative [facility] Comment on above: Result Comment: A ne gative anti-HAV IgM result suggests no recent or current HAV infection. Performed By: #### L 3100.0200, L3100.0440, L3890.4000 #### [facility] [address] [place] [address], [id number] Hepatitis B Core AB IgMon HEP B CORE,IgM Negative Normal Negative [facility] Comment on above: Result Comment: Perf ormed at: - [address] [id number] Equipment Maintenance Engineer: Cyrus Feng PhD, Phone: [phone] Performed By: #### L 3100.0200, L3100.0440, L3890.4000 #### [facility] [address] [place] [address], [address] Emergency Department Summary on 10-22-2024 Emergency Department Summary [facility] Medical Records Department [address] [place] [address] Emergency Department Summary 10/22/24 MR#: [id number] Acct: [id number] Name: ERLINDA ZAPATA Rep #: [id number] : 1970 54 From: Howard Michelle DO PCP: Dr. Vargas Serra DO Status:REG ER Location: ED HPI History of Present Illness Chief Complaint: Occup Expose Narrative Narrative: Patient is a 54-year-old female with past medical history of hypothyroidism, depression, fibromyalgia, GERD who presented to the emergency department with a concern for being stuck from a lancet a diabetic uses checked her blood glucose. Patient states that she was at work there was 1 laying out she picked it up and it stuck her right middle finger. She states that she called her HR department and they advised her to come here to be evaluated. She states that she would like hepatitis testing as well as HIV testing. Patient is unsure when her last tetanus shot she states that she believes her last tetanus shot was updated here. [facility] Medical History Wears dentures Wears glasses Depression Thyroid disease Back pain History of hiatal hernia History of diverticulitis Gastric reflux Former smoker Arthritis, rheumatoid Fibromyalgia Hypothyroidism Arthritis Home Medications ???Medication ???Instructions ???Recorded ???Last Taken ???Type levothyroxine 112 mcg tablet 125 mcg PO DAILY 06/25/13 05/25/24 History omeprazole 20 mg capsule,delayed 20 mg PO PRN Indigestion 11/27/17 05/24/24 History release ibuprofen 600 mg tablet 600 mg PO Q6H PRN PRN Mild-Mod 09/22 Unknown Rx Pain (1-5/10) #30 tabs liothyronine 5 mcg tablet 5 mcg PO DAILY 04/23/23 05/25/24 H istory folic acid 1 mg tablet 1 mg PO DAILY 10/15/23 05/23/24 Hi story cyclobenzaprine 10 mg tablet 10 mg PO TID PRN Muscle Spasm #20 10/18/23 Unknown Rx TABLETS methotrexate 2.5 mg/mL oral 2.5 mg PO QWEEK 09/09/24 Unknown H istory solution tramadol 50 mg tablet 50 mg PO TID PRN 09/09/24 Unknown History Allergy/AdvReac Type Severity Reaction Status Date / Time ceftriaxone sodium (From Allergy Rash Verified 10/22/24 09:12 Rocephin) oxycodone AdvReac Nausea/Vom/ Verified 10/22/24 09:12 Diarrhea Family History Other Asthma COPD (chronic obstructive pulmonary disease) Diabetes Hypertension Thyroid disorder Surgical History Hx of tubal ligation Hx of bilateral breast reduction surgery Hx of hysterectomy Hx of colonoscopy History of tonsillectomy History of shoulder surgery History of neck surgery History of foot operation History of carpal tunnel release Social History Smoking Status: Former smoker alcohol intake: current alcohol intake frequency: holidays/special occasions only ROS ROS ED ROS Narrative Neurological: Denies numbness, weakness, Skin: Complains of skin poke from lancet and right middle finger as noted above EXAM Physical Exam Narrative Exam Narrative: General: Patient lying in bed rest comfortably did not appear to be in acute distress Head: Atraumatic, normocephalic Eyes: PERRL bilaterally, EOMI bilaterally, no conjunctival injection noted Neck: Soft, supple, trachea midline Cardiovascular: Regular rate Extremities: +5/5 strength noted to bilateral upper and lower extremities Neurological: Patient follow commands knew that she was at [facility] year is 2024 Skin: Small poke from the lancet in her right middle finger no active bleeding noted no concern for infection Const Vital Signs: 10/22/24 09:10 10/22/24 09:37 Temperature 98.2 F Temperature Source Temporal Pulse Rate 94 Respiratory Rate 15 Respiratory Effort Normal Respiratory Pattern Normal Blood Pressure 179/96 H Blood Pressure Mean 123 Pulse Ox 98 Oxygen Delivery Method Room Air MDM MDM MDM Narrative Medical decision making narrative: Patient is a 54-year-old female who presented to the emergency department after occupational exposure to a lancet while at work. On the differential diagnose includes but not limited to HIV exposure, hepatitis exposure although I have very low suspicion for both of these, superficial wound. Patient will have blood test drawn here and will be advised to follow-up on these with corporate care as this was a work-related injury. Was unable to see when the patient's tetanus shot was updated last therefore updated today Patient was advised to follow-up on the hepatitis and HIV testing with corporate care. She was advised to watch out for signs of infection if this is to occur she is (more content not included)... Normal [facility] HBV surface Ab Ql (S)Ordered By: Howard Michelle on 10-22-2024 Hepatitis B Surface Antibody Non-Reactive [facility] Comment on above: <8.5 mIU/mL: Non-Miranda ctive8.5<= x <11.5 mIU/mL: Indeterminate>=11.5 mIU/mL: Reactive Non Reactive: Inconsistent with immunity less than <10 mIU/mL Reactive: Consistent with immunity greater than or equal to 10 mIU/mL HBV surface Ag Ql (S)Ordered By: Howard Michelle on 10-22-2024 Hepatitis B Surface Antigen Non-Reactive Nonreactive [facility] Comment on above: Reactive: Presumptiv e evidence of HBV. Repeatedly reactive samples must be confirmed using a neutralization test ([employer] on the Drives HBsAg Confirmatory Test)Non-Reactive: HBsAg not detected; does not exclude the possibility of exposure to HBV HIV 1 RNA KERRY+probe [Log #/V ol]Ordered By: Howard Michelle on 10-22-2024 HIV-1 RNA (PCR) log10 Value TNP [facility] Comment on above: Test not performedRe sult Units: [id number]/mLUnable to calculate result since non-numeric resultobtained for component test.Performed at: - [address] [id number] Director: Yosi Mcdermott MD, Phone: [phone] Hepatitis A virus IgM antibo dy assayOrdered By: Howard Michelle on 10-22-2024 Hepatitis A IgM Antibody Negative Negative [facility] Comment on above: A negative anti-HAV IgM result suggests no recent orcurrent HAV infection. Hepatitis B virus core IgM a ntibody assayOrdered By: Howard Michelle on 10-22-2024 Hepatitis B Core IgM Antibody Negative Negative [facility] Comment on above: Performed at: - [address] [id number] Director: Cyrus Feng PhD, Phone: [phone] Hepatitis C antibodyOrdered By: Howard Michelle on 10-22-2024 Hepatitis C Antibody Non-Reactive Nonreactive [facility] Comment on above: Reactive: Presumptiv e evidence of antibodies to HCV. Follow CDC recommendations for supplemental testing.Non-Reactive: Antibodies to HCV were not detected; does not exclude the possibility of exposure to HCVReactive Results are presumptive evidence of antibodies to HCV. Follow CDC recommendations for supplemental testing.Order confirmation testing: HCV Quant by PCR testing - HCVPCR #[id number] Non Reactive: < 0.8 Equivocal: >/= 0.8 to < 1.0 Reactive: >/= 1.0The CDC requires that a reactive/equivocal HCV antibody result be sent out for confirmation. HCV Quant by PCR testing. L3890.6006on 10-22-2024 HIV Non-Reactive Normal Nonreactive [facility] Comment on above: Order Comment: Reaso n for Exam: stuck with Lacet at work Result Comment: Non- Reactive Reactive Repeatedly reactive samples must be confirmed according to CDC recommended confirmatory algorithms. The subresults for either HIVAG or AHIV can be used as an aid in the selection of the confirmation algorithm for reactive samples. Send out specimens with Reactive results to [facility] for confirmation. Order the HIV antibody detection and differentiation: lc#[id number] Performed By: #### L 3890.6102, L3890.6202, L3890.6006, L3890.6301 ####[facility] [address] [facility] [place], [place], [id number] L3890.6102on 10-22-2024 HEP B Surf Ag Non-Reactive Normal Nonreactive [facility] Comment on above: Order Comment: Reaso n for Exam: stuck with Lacet at work Result Comment: Reac tive: Presumptive evidence of HBV. Repeatedly reactive samples must be confirmed using a neutralization test ([employer] HBsAg Confirmatory Test) Non-Reactive: HBsAg not detected; does not exclude the possibility of exposure to HBV Performed By: #### L 3890.6102, L3890.6202, L3890.6006, L3890.6301 ####[facility] [address] [place], [place], [id number] L3890.6202on 10-22-2024 HEP B Surf Ab Non-Reactive Normal [facility] Comment on above: Order Comment: Reaso n for Exam: stuck with Lacet at work Result Comment: <8.5 mIU/mL: Non-Reactive 8.5<= x <11.5 mIU/mL: Indeterminate >=11.5 mIU/mL: Reactive Non Reactive: Inconsistent with immunity less than <10 mIU/mL Reactive: Consistent with immunity greater than or equal to 10 mIU/mL Performed By: #### L 3890.6102, L3890.6202, L3890.6006, L3890.6301 ####[facility] [address] [place], [place], [address] L3890.6301on 10-22-2024 Hepatitis C Ab Non-Reactive Normal Nonreactive [facility] Comment on above: Order Comment: Reaso n for Exam: stuck with Lacet at work Result Comment: Reac tive: Presumptive evidence of antibodies to HCV. Follow CDC recommendations for supplemental testing. Non-Reactive: Antibodies to HCV were not detected; does not exclude the possibility of exposure to HCV Reactive Results are presumptive evidence of antibodies to HCV. Follow CDC recommendations for supplemental testing. Order confirmation testing: HCV Quant by PCR testing - HCVPCR #[id number] Non Reactive: < 0.8 Equivocal: >/= 0.8 to < 1.0 Reactive: >/= 1.0 The CDC requires that a reactive/equivocal HCV antibody result be sent out for confirmation. HCV Quant by PCR testing. Performed By: #### L 3890.6102, L3890.6202, L3890.6006, L3890.6301 ####[facility] [address] [facility] [place], [place], [address] Laboratory - Microbiology an d Antimicrobial susceptibilityOrdered By: Howard Michelle on 10-22-2024 HBV surface Ag Ql (S) Non-Reactive Nonreactive [facility] Comment on above: Reactive: Presumptiv e evidence of HBV. Repeatedly reactive samples must be confirmed using a neutralization test ([employer] HBsAg Confirmatory Test)Non-Reactive: HBsAg not detected; does not exclude the possibility of exposure to HBV No Panel InformationOrdered By: Howard Michelle on 10-22-2024 HIV (1&2) Antibody Non-Reactive Nonreactive [facility] Comment on above: Non-ReactiveReactive Repeatedly reactive samples must be confirmed according to CDC recommended confirmatory algorithms. The subresults for either HIVAG or AHIV can be used as an aid in the selection of the confirmation algorithm for reactive samples.Send out specimens with Reactive results to [facility] for confirmation.Order the HIV antibody detection and differentiation: #[id number] Plasma HIV 1 RNA viral load by probe and target amplification method (log number/voluOrdered By: Howard Michelle on 10-22-2024 HIV 1 RNA KERRY+probe [Log #/Vol] TNP [facility] Comment on above: Test not performedRe sult Units: [id number]/mLUnable to calculate result since non-numeric resultobtained for component test.Performed at: [address] [id number] Director: Yosi Mcdermott MD, Phone: [phone] Quantitative HIV-1 RNA measu rement by PCROrdered By: Howard Michelle on 10-22-2024 HIV-1 RNA Ultraquantitative (PCR) < 20 copies/mL . [facility] Comment on above: HIV-1 RNA not detect edThe reportable range for this assay is 20 to 10,000,000copies HIV-1 RNA/mL. Serum hepatitis B virus surf dania antibody detectionOrdered By: Howard Michelle on 10-22-2024 HBV surface Ab Ql (S) Non-Reactive [facility] Comment on above: <8.5 mIU/mL: Non-[place] ctive8.5<= x <11.5 mIU/mL: Indeterminate>=11.5 mIU/mL: Reactive Non Reactive: Inconsistent with immunity less than <10 mIU/mL Reactive: Consistent with immunity greater than or equal to 10 mIU/mL Absolute lymphocyte countOrd ered By: Sheyla Cruz on 10-21-2024 Lymphocytes Auto (Unsp spec) [#/Vol] 2.10 10*3/uL 0.83-4.51 [facility] Absolute neutrophil countOrd ered By: Sheyla Cruz on 10-21-2024 Neutrophils (Bld) [#/Vol] 3.5 10*3/uL 2.0-7.7 [facility] Anion gap in Serum or Plasma Ordered By: Sheyla Cruz on 10-21-2024 Anion gap [Moles/Vol] 12 mmol/L 5- [facility] Automated lymphocyte count a s percentage of total leukocytesOrdered By: Sheyla Cruz on 10-21-2024 Lymphocytes/100 WBC Auto (Unsp spec) 33.4 % - [facility] BUN/creatinine ratioOrdered By: Sheyla Cruz on 10-21-2024 Urea nitrogen/Creatinine [Mass ratio] 20.2 mg/mg High 10- [facility] Basophil percentageOrdered B y: Sheyla Cruz on 10-21-2024 Basophils/100 WBC (Bld) 0.8 % 0-1 [facility] Bilirubin, totalOrdered By: Sheylagalina Cruz on 10-21-2024 Bilirubin [Mass/Vol] 0.30 mg/dL 0.00-1.30 [facility] CBC W/Diff, Automatedon 10-03 Absolute Lymph 2.10 X10 3/uL Normal 0.83-4.51 [facility] Comment on above: Performed By: #### L 100.0100, L500.4050 ####[facility] [address] [place], [address] Absolute Neut 3.5 X10 3/uL Normal 2.0-7.7 [facility] Comment on above: Performed By: #### L 100.0100, L500.4050 ####[facility] [address] [place], [address] Basophils/100 WBC (Bld) 0.8 % Normal 0-1 [facility] Comment on above: Performed By: #### L 100.0100, L500.4050 ####[facility] [address] [place], [address] Eosinophils/100 WBC (Bld) 1.4 % Normal 0-5 [facility] Comment on above: Performed By: #### L 100.0100, L500.4050 ####[facility] [address] [place], [address] Erythrocyte distribution width (RBC) [Ratio] 12.8 % Normal 11.6-14.6 [facility] Comment on above: Performed By: #### L 100.0100, L500.4050 ####[facility] [address] [place], [address] Hematocrit (Bld) [Volume fraction] 39.9 % Normal 37-47 [facility] Comment on above: Performed By: #### L 100.0100, L500.4050 ####[facility] [address] [place], [address] Hemoglobin (Bld) [Mass/Vol] 13.6 g/dL Normal 12.0-15.0 [facility] Comment on above: Performed By: #### L 100.0100, L500.4050 ####[facility] [address] [place], [address] IG% 0.200 Normal 0.0-0.9 [facility] Comment on above: Result Comment: IG% - Immature Granulocytes (promyelocytes, myelocytes and metamyelocytes) > 1% indicates that a LEFT SHIFT is Present. Performed By: #### L 100.0100, L500.4050 ####[facility] [address] [place], [address] Lymphocytes/100 WBC (Bld) 33.4 % Normal 19-41 [facility] Comment on above: Performed By: #### L 100.0100, L500.4050 ####[facility] [address] [place], [address] MCH (RBC) [Entitic mass] 30.3 pg Normal 27.0-32.0 [facility] Comment on above: Performed By: #### L 100.0100, L500.4050 ####[facility] [address] [place], [address] MCHC (RBC) [Mass/Vol] 34.1 g/dL Normal 32-36 [facility] Comment on above: Performed By: #### L 100.0100, L500.4050 ####[facility] [address] [place], [address] MCV (RBC) [Entitic vol] 88.9 fL Normal 81-99 [facility] Comment on above: Performed By: #### L 100.0100, L500.4050 ####[facility] [address] [place], [address] Monocytes/100 WBC (Bld) 8.3 % Normal 0-10 [facility] Comment on above: Performed By: #### L 100.0100, L500.4050 ####[facility] [address] [place], [address] Neutrophils/100 WBC (Bld) 55.9 % Normal 47-70 [facility] Comment on above: Performed By: #### L 100.0100, L500.4050 ####[facility] [address] [place], [address] Nucleated RBC (Bld) [#/Vol] 0 10*3/uL Normal 0-5 [facility] Comment on above: Performed By: #### L 100.0100, L500.4050 ####[facility] [address] [place], [address] Platelet mean volume (Bld) [Entitic vol] 10.3 fL Normal 6.2-12.0 [facility] Comment on above: Performed By: #### L 100.0100, L500.4050 ####[facility] [address] [place], [address] Platelets (Bld) [#/Vol] 342 10*3/uL Normal 150-450 [facility] Comment on above: Performed By: #### L 100.0100, L500.4050 ####[facility] [address] [place], [address] RBC (Bld) [#/Vol] 4.49 10*6/uL Normal 4.2-5.4 [facility] Comment on above: Performed By: #### L 100.0100, L500.4050 ####[facility] [address] [place], [address] RDW SD 41.2 fl Normal 35.1-43.9 [facility] Comment on above: Performed By: #### L 100.0100, L500.4050 ####[facility] [address] [place], [address] WBC (Bld) [#/Vol] 6.3 10*3/uL Normal 4.4-11.0 [facility] Comment on above: Performed By: #### L 100.0100, L500.4050 ####[facility] [address] [place], [address] Carbon dioxide, total [Moles /volume] in Central venous bloodOrdered By: Sheyla Cruz on 10-21-2024 CO2 [Moles/Vol] 24.1 mmol/L 21.0-32.0 [facility] Chloride assayOrdered By: Eusebio Cruz on 10-21-2024 Chloride [Moles/Vol] 104 mmol/L 98-108 [facility] Comprehensive Metabolic Prof ilon 10-21-2024 Albumin [Mass/Vol] 4.5 g/dL Normal 3.5-5.0 [facility] Comment on above: Performed By: #### L 100.0100, L500.4050 ####[facility] [address] [place], [address] Albumin/Globulin [Mass ratio] 1.6 {ratio} Normal 0.9-2.4 [facility] Comment on above: Performed By: #### L 100.0100, L500.4050 ####[facility] [address] [place], [address] ALK PHOS 68 U/L Normal 35-104 [facility] Comment on above: Performed By: #### L 100.0100, L500.4050 ####[facility] [address] [place], [address] ALT [Catalytic activity/Vol] 24 U/L Normal <=34 [facility] Comment on above: Performed By: #### L 100.0100, L500.4050 ####[facility] [address] [place], [address] AST [Catalytic activity/Vol] 19 U/L Normal <=31 [facility] Comment on above: Performed By: #### L 100.0100, L500.4050 ####[facility] [address] [place], [address] Bilirubin [Mass/Vol] 0.30 mg/dL Normal 0.00-1.30 [facility] Comment on above: Performed By: #### L 100.0100, L500.4050 ####[facility] [address] [place], [address] BUN/CRE 20.2 RATIO High 10-20 [facility] Comment on above: Performed By: #### L 100.0100, L500.4050 ####[facility] [address] [place], [address] Calcium [Mass/Vol] 9.8 mg/dL Normal 7.6-11.0 [facility] Comment on above: Performed By: #### L 100.0100, L500.4050 ####[facility] [address] [place], [address] Chloride [Moles/Vol] 104 mmol/L Normal 98-108 [facility] Comment on above: Performed By: #### L 100.0100, L500.4050 ####[facility] [address] [place], [address] CO2 [Moles/Vol] 24.1 mmol/L Normal 21.0-32.0 [facility] Comment on above: Performed By: #### L 100.0100, L500.4050 ####[facility] [address] [place], [address] Creatinine [Mass/Vol] 0.80 mg/dL Normal 0.70-1.20 [facility] Comment on above: Performed By: #### L 100.0100, L500.4050 ####[facility] [address] [place], [address] GAP 12 Normal 5-15 [facility] Comment on above: Performed By: #### L 100.0100, L500.4050 ####[facility] [address] [place], [address] GFR/1.73 sq M.predicted among non-blacks MDRD (S/P/Bld) [Vol rate/Area] 87 mL/min/{1.73_m2} Normal >60 [facility] Comment on above: Result Comment: mL/m in/1.73m2 CKD-EPI Creatinine Equation (2020) Performed By: #### L 100.0100, L500.4050 ####[facility] [address] [place], [address] Globulin (S) [Mass/Vol] 2.8 g/dL Normal 2.2-4.2 [facility] Comment on above: Performed By: #### L 100.0100, L500.4050 ####[facility] [address] [place], [address] Glucose [Mass/Vol] 90 mg/dL Normal 70-99 [facility] Comment on above: Performed By: #### L 100.0100, L500.4050 ####[facility] [address] [place], [address] Potassium [Moles/Vol] 3.9 mmol/L Normal 3.3-5.1 [facility] Comment on above: Performed By: #### L 100.0100, L500.4050 ####[facility] [address] [place], [address] Sodium [Moles/Vol] 140 mmol/L Normal 133-145 [facility] Comment on above: Performed By: #### L 100.0100, L500.4050 ####[facility] [address] [place], [address] T PROT 7.3 g/dL Normal 5.9-8.4 [facility] Comment on above: Performed By: #### L 100.0100, L500.4050 ####[facility] [address] [place], [address] Urea nitrogen [Mass/Vol] 16 mg/dL Normal 4-19 [facility] Comment on above: Performed By: #### L 100.0100, L500.4050 ####[facility] [address] [place], [address] Eosinophil percentageOrdered By: Sheyla Cruz on 10-21-2024 Eosinophils/100 WBC (Bld) 1.4 % 0-5 [facility] Erythrocyte distribution wid th ratioOrdered By: Sheyla Cruz on 10-21-2024 Erythrocyte distribution width (RBC) [Ratio] 12.8 % 11.6-14.6 [facility] Erythrocyte distribution wid th standard deviationOrdered By: Sheyla Cruz on 10-21-2024 Erythrocyte distribution width (RBC) [Entitic vol] 41.2 fL 35.1-43.9 [facility] Erythrocyte distribution width (RBC) [Ratio] 41.2 fl 35.1-43.9 [facility] GFR/1.73 sq M.predicted ml g non-blacks MDRD (S/P/Bld) [Vol rate/Area]Ordered By: Sheyla Cruz on 10-21-2024 Estimated GFR (MDRD) Non-Af Amer 87 >60 [facility] Comment on above: mL/min/1.73m2 CKD-EP I Creatinine Equation (2020) Glomerular filtration rate ( GFR) estimation/1.73 sq m using serum, plasma, or whole bOrdered By: Sehyla Cruz on 10-21-2024 GFR/1.73 sq M.predicted among non-blacks MDRD (S/P/Bld) [Vol rate/Area] 87 mL/min/{1.73_m2} >60 [facility] Comment on above: mL/min/1.73m2 CKD-EP I Creatinine Equation (2020) Hematocrit Auto (Bld) [Volum e fraction]Ordered By: Sheyla Cruz on 10-21-2024 Hematocrit (Bld) [Volume fraction] 39.9 % 37-47 [facility] Hemoglobin measurementOrdere d By: Sheyla Cruz on 10-21-2024 Hemoglobin (Bld) [Mass/Vol] 13.6 g/dL 12.0-15.0 [facility] Immature granulocytes/100 WB C Auto (Bld)Ordered By: Sheyla Cruz on 10-21-2024 Immature granulocytes/100 WBC (Bld) 0.200 % 0.0-0.9 [facility] Comment on above: IG% - Immature Granu locytes (promyelocytes, myelocytes and metamyelocytes) > 1% indicates that a LEFT SHIFT is Present. Laboratory - Chemistry and C hemistry - challengeOrdered By: Sheyla Cruz on 10-21-2024 AST [Catalytic activity/Vol] 19 U/L <32 [facility] Lymphocytes Auto (Unsp spec) [#/Vol]Ordered By: Sheyla Cruz on 10-21-2024 Lymphocytes (Bld) [#/Vol] 2.10 10*3/uL 0.83-4.51 [facility] Lymphocytes/100 WBC Auto (Un sp spec)Ordered By: Sheyla Cruz on 10-21-2024 Lymphocytes/100 WBC (Bld) 33.4 % 19-41 [facility] MCV (mean corpuscular volume ) determinationOrdered By: Sheyla Cruz on 10-21-2024 MCV (RBC) [Entitic vol] 88.9 fL 81-99 [facility] Mean corpuscular hemoglobin (MCH) determinationOrdered By: Sheyla Cruz on 10-21-2024 MCH (RBC) [Entitic mass] 30.3 pg 27.0-32.0 [facility] Mean corpuscular hemoglobin concentration (MCHC) determinationOrdered By: Sheyla Cruz on 10-21-2024 MCHC (RBC) [Mass/Vol] 34.1 g/dL 32-36 [facility] Mean platelet volume determi nationOrdered By: Sheyla Cruz on 10-21-2024 Platelet mean volume (Bld) [Entitic vol] 10.3 fL 6.2-12.0 [facility] Monocyte percentageOrdered B y: Sheyla Cruz on 10-21-2024 Monocytes/100 WBC (Bld) 8.3 % 0-10 [facility] Neutrophil percentageOrdered By: Sheyla Cruz on 10-21-2024 Neutrophils/100 WBC (Bld) 55.9 % 47-70 [facility] Nucleated red blood cell per centageOrdered By: Sheyla Cruz on 10-21-2024 Nucleated RBC/100 WBC (Bld) [Ratio] 0 % 0-5 [facility] Platelet countOrdered By: Eusebio Cruz on 10-21-2024 Platelets (Bld) [#/Vol] 342 10*3/uL 150-450 [facility] Potassium (Unsp spec) [Mass/ Vol]Ordered By: Sheyla Cruz on 10-21-2024 Potassium [Moles/Vol] 3.9 mmol/L 3.3-5.1 [facility] Potassium measurement (mass/ volume)Ordered By: Sheyla Cruz on 10-21-2024 Potassium (Unsp spec) [Mass/Vol] 3.9 mmol/L 3.3-5.1 [facility] RBC Auto (Bld) [#/Vol]Ordere d By: Sheyla Cruz on 10-21-2024 RBC (Bld) [#/Vol] 4.49 10*6/uL 4.2-5.4 [facility] Serum creatinine measurement (mass/volume)Ordered By: Sheyla Cruz on 10-21-2024 Creatinine [Mass/Vol] 0.80 mg/dL 0.70-1.20 [facility] Serum globulin measurementOr dered By: Sheyla Cruz on 10-21-2024 Globulin (S) [Mass/Vol] 2.8 g/dL 2.2-4.2 [facility] Serum glucose measurement (m ass/volume)Ordered By: Sheyla Cruz on 10-21-2024 Glucose [Mass/Vol] 90 mg/dL 70-99 [facility] Serum or plasma alanine berrios otransferase (ALT) measurementOrdered By: Sheyla Cruz on 10-21-2024 ALT [Catalytic activity/Vol] 24 U/L <35 [facility] Serum or plasma albumin allan urement (mass/volume)Ordered By: Sheyla Cruz on 10-21-2024 Albumin [Mass/Vol] 4.5 g/dL 3.5-5.0 [facility] Serum or plasma albumin/glob ulin mass ratioOrdered By: Sheyla rCuz on 10-21-2024 Albumin/Globulin [Mass ratio] 1.6 {ratio} 0.9-2.4 [facility] Serum or plasma alkaline jorge alberto sphatase measurementOrdered By: Sheyla Cruz on 10-21-2024 ALP [Catalytic activity/Vol] 68 U/L 35-104 [facility] Serum or plasma calcium allan urement (mass/volume)Ordered By: Sheyla Cruz on 10-21-2024 Calcium [Mass/Vol] 9.8 mg/dL 7.6-11.0 [facility] Serum or plasma urea nitroge n measurement (mass/volume)Ordered By: Sheyla Cruz on 10-21-2024 Urea nitrogen [Mass/Vol] 16 mg/dL 4-19 [facility] Sodium levelOrdered By: Madeleine Cruz on 10-21-2024 Sodium [Moles/Vol] 140 mmol/L 133-145 [facility] Total proteinOrdered By: Estee Cruz on 10-21-2024 Protein [Mass/Vol] 7.3 g/dL 5.9-8.4 [facility] White blood cell (WBC) count Ordered By: Sheyla Cruz on 10-21-2024 WBC (Bld) [#/Vol] 6.3 10*3/uL 4.4-11.0 [facility] MR/BMS.BVSon 09-09-2024 MR/BMS.BVS [facility] [address] [place] [address] OFFICE VISIT Date of Service: 09/09/24 MR#: [id number] Acct: [id number] Name: ERLINDA ZAPATA TOAN Rep #: [id number] : 1970 Provider: EUSEBIO Leblanc Age/Sex: 54/F Location: [facility] Status: Signed Intake Vital Signs 05/25/24 11:43 09/09/24 15:44 Height 5 ft 8 in Weight: 209 lb BP 128/80 H Blood Pressure Location Lt radial Position Sitting Respiration 16 Pulse 87 Pulse Source Monitor Temp 98 F Temp Source Temporal Pulse Oximetry (%) 99 Oxygen Delivery Method room air Intake Visit Reasons: Painful Varicose Veins Chief Complaint: establish care Is patient in pain?: No Allergies ceftriaxone sodium (From Rocephin) Allergy (Verified 09/09/24 15:46) Rash oxycodone Adverse Reaction (Verified 09/09/24 15:46) Nausea/Vom/Diarrhea Medications ???Medication ???Instructions ???Recorded ???Confirmed ???Type levothyroxine 112 mcg tablet 125 mcg PO DAILY 06/25/13 09/09/24 History omeprazole 20 mg capsule,delayed 20 mg PO PRN Indigestion 11/27/17 09/09/24 History release ibuprofen 600 mg tablet 600 mg PO Q6H PRN PRN Mild-Mod 09/2209/09/24 Rx Pain (1-5/10) #30 tabs liothyronine 5 mcg tablet 5 mcg PO DAILY 04/23/23 09/09/24 H istory folic acid 1 mg tablet 1 mg PO DAILY 10/15/23 09/09/24 Hi story cyclobenzaprine 10 mg tablet 10 mg PO TID PRN Muscle Spasm #20 10/18/23 09/09/24 Rx TABLETS methotrexate 2.5 mg/mL oral 2.5 mg PO QWEEK 09/09/24 09/09/24 History solution tramadol 50 mg tablet 50 mg PO TID PRN 09/09/24 09/09/24 History Is last menstrual period known: No Post menopausal: Yes Patient : No Have you fallen in the past year?: Yes PFSH Medical History Wears dentures Wears glasses Depression Thyroid disease Back pain History of hiatal hernia History of diverticulitis Gastric reflux Former smoker Arthritis, rheumatoid Fibromyalgia Hypothyroidism Arthritis Surgical History Hx of tubal ligation Hx of bilateral breast reduction surgery Hx of hysterectomy Hx of colonoscopy History of tonsillectomy History of shoulder surgery History of neck surgery History of foot operation History of carpal tunnel release Family History (Updated 09/09/24 @ 15:43 by Noemi Luis) Other Asthma COPD (chronic obstructive pulmonary disease) Diabetes Hypertension Thyroid disorder Social History Smoking Status: Former smoker alcohol intake: current alcohol intake frequency: holidays/special occasions only HPI HPI HPI: ERLINDA ZAPATA, is a 54 F who presents to the office today for evaluation of symptomatic varicose veins. She reports that she has bilateral calf aching, heaviness, and fatigue which is worse right than left. She has noticed progressively bulging varicosities on the R calf and R lateral thigh, she notes that these are painful to palpation and when pressure is applied in these areas she also gets some paresthesias/numbness which radiates down the varicosities. She has noticed these symptoms for the last year and then seem to be continuing to worsen. She does get relief from elevation of her legs at the end of the day. She has an active job at [employer], is standing and walking all day on concrete floors. She does not wear compression. She denies prior venous intervention, wounds, VTE. ROS General General: Yes weight change and fatigue; No appetite, colon cancer, breast cancer or weakness HEENT HEENT: No difficulty swallowing, eye injury, eye surgery, swollen glands or hoarseness Endo Endocrine: Yes thyroid disease; No diabetes mellitus, thyroid cancer, Hair loss, heat intolerance or cold intolerance Skin Skin: No rash or changing moles Musc Musculoskeletal: Yes back problems, arthritis and rheumatoid arthritis; No gout or joint pain Cardio Cardiovascular: No murmur, pacemaker, heart disease, atrial fibrillation, high blood pressure, heart attack, heart stent, palpitations, shortness of breat with exertion or chest pain Psych Psychiatric: No depression, anxiety or hearing voices Resp Respiratory: No shortness of breath, No sleep apnea, No cough, No COPD, No asthma, No emphysema and No wheezing Gastro Gastrointestinal: No abdominal pain, No nausea or vomiting, No diarrhea, No constipation, No blood in stool, Yes acid reflux, No hemorrhoids, No ulcers, No gallbladder problem and No black,tarry sto ols Rasheed Hematologic: No blood thinners, No blood disorders, No bleeding, No anemia and No blood clots Neuro Neurologic: No system reviewed and no additional complaints, except (more content not included)... Normal [facility] Absolute neutrophil countOrd ered By: Sheyla Cruz on 07-31-2024 Neutrophils (Bld) [#/Vol] 3.0 10*3/uL 2.0-7.7 [facility] Albumin to globulin ratioOrd ered By: Sheyla Cruz on 07-31-2024 Albumin/Globulin [Mass ratio] 1.1 {ratio} 0.9-2.4 [facility] Basophil percentageOrdered B y: Sheyla Cruz on 07-31-2024 Basophils/100 WBC (Bld) 0.9 % 0-1 [facility] Bilirubin, totalOrdered By: Sheyla Cruz on 07-31-2024 Bilirubin [Mass/Vol] 0.30 mg/dL 0.20-1.00 [facility] Comment on above: For patients on eltr ombopag therapy, use of Dimension Bradley TBIL is not recommended. Blood urea nitrogen (BUN)/cr eatinine ratioOrdered By: Sheyla Cruz on 07-31-2024 Urea nitrogen/Creatinine [Mass ratio] 19.7 mg/mg 10-20 [facility] CBC W/Diff, Automatedon 07-06 Absolute Lymph 1.89 X10 3/uL Normal 0.83-4.51 [facility] Comment on above: Performed By: #### L 100.0100, L500.4050 ####[facility] [address] [place], [address] Absolute Neut 3.0 X10 3/uL Normal 2.0-7.7 [facility] Comment on above: Performed By: #### L 100.0100, L500.4050 ####[facility] [address] [place], [address] Basophils/100 WBC (Bld) 0.9 % Normal 0-1 [facility] Comment on above: Performed By: #### L 100.0100, L500.4050 ####[facility] [address] [place], [address] Eosinophils/100 WBC (Bld) 2.7 % Normal 0-5 [facility] Comment on above: Performed By: #### L 100.0100, L500.4050 ####[facility] [address] [place], [address] Erythrocyte distribution width (RBC) [Ratio] 12.5 % Normal 11.6-14.6 [facility] Comment on above: Performed By: #### L 100.0100, L500.4050 ####[facility] [address] [place], [address] Hematocrit (Bld) [Volume fraction] 38.8 % Normal 37-47 [facility] Comment on above: Performed By: #### L 100.0100, L500.4050 ####[facility] [address] [place], [address] Hemoglobin (Bld) [Mass/Vol] 13.0 g/dL Normal 12.0-15.0 [facility] Comment on above: Performed By: #### L 100.0100, L500.4050 ####[facility] [address] [place], [address] IG% 0.200 Normal 0.0-0.9 [facility] Comment on above: Result Comment: IG% - Immature Granulocytes (promyelocytes, myelocytes and metamyelocytes) > 1% indicates that a LEFT SHIFT is Present. Performed By: #### L 100.0100, L500.4050 ####[facility] [address] [place], [address] Lymphocytes/100 WBC (Bld) 33.6 % Normal 19-41 [facility] Comment on above: Performed By: #### L 100.0100, L500.4050 ####[facility] [address] [place], [address] MCH (RBC) [Entitic mass] 30.4 pg Normal 27.0-32.0 [facility] Comment on above: Performed By: #### L 100.0100, L500.4050 ####[facility] [address] [place], [address] MCHC (RBC) [Mass/Vol] 33.5 g/dL Normal 32-36 [facility] Comment on above: Performed By: #### L 100.0100, L500.4050 ####[facility] [address] [place], [address] MCV (RBC) [Entitic vol] 90.7 fL Normal 81-99 [facility] Comment on above: Performed By: #### L 100.0100, L500.4050 ####[facility] [address] [place], [address] Monocytes/100 WBC (Bld) 8.7 % Normal 0-10 [facility] Comment on above: Performed By: #### L 100.0100, L500.4050 ####[facility] [address] [place], [address] Neutrophils/100 WBC (Bld) 53.9 % Normal 47-70 [facility] Comment on above: Performed By: #### L 100.0100, L500.4050 ####[facility] [address] [place], [address] Nucleated RBC (Bld) [#/Vol] 0 10*3/uL Normal 0-5 [facility] Comment on above: Performed By: #### L 100.0100, L500.4050 ####[facility] [address] [place], [address] Platelet mean volume (Bld) [Entitic vol] 10.5 fL Normal 6.2-12.0 [facility] Comment on above: Performed By: #### L 100.0100, L500.4050 ####[facility] [address] [place], [address] Platelets (Bld) [#/Vol] 335 10*3/uL Normal 150-450 [facility] Comment on above: Performed By: #### L 100.0100, L500.4050 ####[facility] [address] [place], [address] RBC (Bld) [#/Vol] 4.28 10*6/uL Normal 4.2-5.4 [facility] Comment on above: Performed By: #### L 100.0100, L500.4050 ####[facility] [address] [place], [address] RDW SD 40.9 fl Normal 35.1-43.9 [facility] Comment on above: Performed By: #### L 100.0100, L500.4050 ####[facility] [address] [place], [address] WBC (Bld) [#/Vol] 5.6 10*3/uL Normal 4.4-11.0 [facility] Comment on above: Performed By: #### L 100.0100, L500.4050 ####[facility] [address] [place], [address] Carbon dioxide measurementOr dered By: Sheyla rCuz on 07-31-2024 CO2 [Moles/Vol] 29.0 mmol/L 21.0-32.0 [facility] Chloride measurementOrdered By: Sheyla Cruz on 07-31-2024 Chloride [Moles/Vol] 106 mmol/L 98-107 [facility] Comprehensive Metabolic Prof ilon 07-31-2024 Albumin [Mass/Vol] 3.8 g/dL Normal 3.2-5.0 [facility] Comment on above: Performed By: #### L 100.0100, L500.4050 ####[facility] [address] [place], [address] Albumin/Globulin [Mass ratio] 1.1 {ratio} Normal 0.9-2.4 [facility] Comment on above: Performed By: #### L 100.0100, L500.4050 ####[facility] [address] [place], [address] ALK P 69 U/L Normal 45-117 [facility] Comment on above: Performed By: #### L 100.0100, L500.4050 ####[facility] [address] [place], [address] ALT [Catalytic activity/Vol] 31 U/L Normal 13-56 [facility] Comment on above: Performed By: #### L 100.0100, L500.4050 ####[facility] [address] [place], [address] AST [Catalytic activity/Vol] 15 U/L Normal 15-37 [facility] Comment on above: Performed By: #### L 100.0100, L500.4050 ####[facility] [address] [place], [address] Bilirubin [Mass/Vol] 0.30 mg/dL Normal 0.20-1.00 [facility] Comment on above: Result Comment: For patients on eltrombopag therapy, use of Dimension Bradley TBIL is not recommended. Performed By: #### L 100.0100, L500.4050 ####[facility] [address] [place], [address] BUN/CRE 19.7 RATIO Normal 10-20 [facility] Comment on above: Performed By: #### L 100.0100, L500.4050 ####[facility] [address] [place], [address] CA,Total 9.4 mg/dL Normal 8.5-10.1 [facility] Comment on above: Performed By: #### L 100.0100, L500.4050 ####[facility] [address] [place], [address] Chloride [Moles/Vol] 106 mmol/L Normal 98-107 [facility] Comment on above: Performed By: #### L 100.0100, L500.4050 ####[facility] [address] [place], [address] CO2 [Moles/Vol] 29.0 mmol/L Normal 21.0-32.0 [facility] Comment on above: Performed By: #### L 100.0100, L500.4050 ####[facility] [address] [place], [address] Creatinine [Mass/Vol] 0.76 mg/dL Normal 0.55-1.02 [facility] Comment on above: Result Comment: The validity of the calculated GFR GFRAA in patients over 70 years has not been determined. Clinical correlation is essential. Performed By: #### L 100.0100, L500.4050 ####[facility] [address] [place], [address] EST GFR - AA 102 mL/min Normal >60 [facility] Comment on above: Result Comment: Afri can [place] GFR Calc Performed By: #### L 100.0100, L500.4050 ####[facility] [address] [place], [address] GAP 3 Low 5-15 [facility] Comment on above: Performed By: #### L 100.0100, L500.4050 ####[facility] [address] [place], [address] GFR/1.73 sq M.predicted among non-blacks MDRD (S/P/Bld) [Vol rate/Area] 84 mL/min/{1.73_m2} Normal >60 [facility] Comment on above: Result Comment: Non- GFR Calc Performed By: #### L 100.0100, L500.4050 ####[facility] [address] [place], [address] Globulin (S) [Mass/Vol] 3.4 g/dL Normal 2.2-4.2 [facility] Comment on above: Performed By: #### L 100.0100, L500.4050 ####[facility] [address] [place], [address] Glucose [Mass/Vol] 100 mg/dL Normal 74-106 [facility] Comment on above: Result Comment: Fast ing Glucose result from 100 to 125 mg/dL suggests IMPAIRED HOMEOSTASIS per A.D.A. criteria. Performed By: #### L 100.0100, L500.4050 ####[facility] [address] [place], [address] Potassium [Moles/Vol] 3.9 mmol/L Normal 3.5-5.1 [facility] Comment on above: Performed By: #### L 100.0100, L500.4050 ####[facility] [address] [place], [address] Sodium [Moles/Vol] 138 mmol/L Normal 136-145 [facility] Comment on above: Performed By: #### L 100.0100, L500.4050 ####[facility] [address] [place], [address] T PROT 7.2 g/dL Normal 6.4-8.2 [facility] Comment on above: Performed By: #### L 100.0100, L500.4050 ####[facility] [address] [place], [address] Urea nitrogen [Mass/Vol] 15 mg/dL Normal 7-18 [facility] Comment on above: Performed By: #### L 100.0100, L500.4050 ####[facility] [address] [place], [address] Eosinophil percentageOrdered By: Sheyla Cruz on 07-31-2024 Eosinophils/100 WBC (Bld) 2.7 % 0-5 [facility] Erythrocyte distribution wid th ratioOrdered By: Sheyla Cruz on 07-31-2024 Erythrocyte distribution width (RBC) [Ratio] 12.5 % 11.6-14.6 [facility] Erythrocyte distribution wid th standard deviationOrdered By: Sheyla Cruz on 07-31-2024 Erythrocyte distribution width (RBC) [Entitic vol] 40.9 fL 35.1-43.9 [facility] Estimated glomerular filtrat ion rate (GFR) AmericanOrdered By: Sheyla Cruz on 07-31-2024 Estimated GFR (MDRD) Amer 102 mL/min >60 [facility] Comment on above: GFR Calc Glomerular filtration rate ( GFR) estimationOrdered By: Sheyla Cruz on 07-31-2024 Estimated GFR (MDRD) Non-Af Amer 84 mL/min >60 [facility] Comment on above: Non- GFR Calc Glucose measurementOrdered B y: Sheyla Cruz on 07-31-2024 Glucose [Mass/Vol] 100 mg/dL 74-106 [facility] Comment on above: Fasting Glucose resu lt from 100 to 125 mg/dL suggests IMPAIRED HOMEOSTASIS per A.D.A. criteria. Hematocrit Auto (Bld) [Volum e fraction]Ordered By: Sheyla Cruz on 07-31-2024 Hematocrit (Bld) [Volume fraction] 38.8 % 37-47 [facility] Hemoglobin measurementOrdere d By: Sheyla Cruz on 07-31-2024 Hemoglobin (Bld) [Mass/Vol] 13.0 g/dL 12.0-15.0 [facility] Immature granulocytes/100 WB C Auto (Bld)Ordered By: Sheyla Cruz on 07-31-2024 Immature granulocytes/100 WBC (Bld) 0.200 % 0.0-0.9 [facility] Comment on above: IG% - Immature Granu locytes (promyelocytes, myelocytes and metamyelocytes) > 1% indicates that a LEFT SHIFT is Present. Laboratory - Chemistry and C hemistry - challengeOrdered By: Sheyla Cruz on 07-31-2024 AST [Catalytic activity/Vol] 15 U/L 15-37 [facility] Lymphocytes Auto (Unsp spec) [#/Vol]Ordered By: Sheyla Cruz on 07-31-2024 Lymphocytes (Bld) [#/Vol] 1.89 10*3/uL 0.83-4.51 [facility] Lymphocytes/100 WBC Auto (Un sp spec)Ordered By: Sheyal Cruz on 07-31-2024 Lymphocytes/100 WBC (Bld) 33.6 % 19-41 [facility] MCV (mean corpuscular volume ) determinationOrdered By: Sheyla Cruz on 07-31-2024 MCV (RBC) [Entitic vol] 90.7 fL 81-99 [facility] Mean corpuscular hemoglobin (MCH) determinationOrdered By: Sheyla Cruz on 07-31-2024 MCH (RBC) [Entitic mass] 30.4 pg 27.0-32.0 [facility] Mean corpuscular hemoglobin concentration (MCHC) determinationOrdered By: Sheyla Cruz on 07-31-2024 MCHC (RBC) [Mass/Vol] 33.5 g/dL 32-36 [facility] Mean platelet volume determi nationOrdered By: Sheyla Cruz on 07-31-2024 Platelet mean volume (Bld) [Entitic vol] 10.5 fL 6.2-12.0 [facility] Monocyte percentageOrdered B y: Sheyla Cruz on 07-31-2024 Monocytes/100 WBC (Bld) 8.7 % 0-10 [facility] Neutrophil percentageOrdered By: Sheyla Cruz on 07-31-2024 Neutrophils/100 WBC (Bld) 53.9 % 47-70 [facility] Nucleated red blood cell per centageOrdered By: Sheyla Cruz on 07-31-2024 Nucleated RBC/100 WBC (Bld) [Ratio] 0 % 0-5 [facility] Platelet countOrdered By: Eusebio Cruz on 07-31-2024 Platelets (Bld) [#/Vol] 335 10*3/uL 150-450 [facility] Potassium measurementOrdered By: Sheyla Cruz on 07-31-2024 Potassium [Moles/Vol] 3.9 mmol/L 3.5-5.1 [facility] RBC Auto (Bld) [#/Vol]Ordere d By: Sheyla Cruz on 07-31-2024 RBC (Bld) [#/Vol] 4.28 10*6/uL 4.2-5.4 [facility] Serum anion gap measurementO rdered By: Sheyla Cruz on 07-31-2024 Anion gap [Moles/Vol] 3 mmol/L Low 5-15 [facility] Serum globulin measurementOr dered By: Sheyla Cruz on 07-31-2024 Globulin (S) [Mass/Vol] 3.4 g/dL 2.2-4.2 [facility] Serum or plasma alanine berrios otransferase (ALT) measurementOrdered By: Sheyla Cruz on 07-31-2024 ALT [Catalytic activity/Vol] 31 U/L 13-56 [facility] Serum or plasma albumin allan urement (mass/volume)Ordered By: Sheyla Cruz on 07-31-2024 Albumin [Mass/Vol] 3.8 g/dL 3.2-5.0 [facility] Serum or plasma alkaline jorge alberto sphatase measurementOrdered By: Sheyla Cruz on 07-31-2024 ALP [Catalytic activity/Vol] 69 U/L 45-117 [facility] Serum or plasma calcium allan urement (mass/volume)Ordered By: Sheyla Cruz on 07-31-2024 Calcium [Mass/Vol] 9.4 mg/dL 8.5-10.1 [facility] Serum or plasma creatinine m easurement (mass/volume)Ordered By: Sheyla Cruz on 07-31-2024 Creatinine [Mass/Vol] 0.76 mg/dL 0.55-1.02 [facility] Comment on above: The validity of the calculated GFR & GFRAA in patients over 70 years has not been determined. Clinical correlation is essential. Serum or plasma urea nitroge n measurement (mass/volume)Ordered By: Sheyla Cruz on 07-31-2024 Urea nitrogen [Mass/Vol] 15 mg/dL 7-18 [facility] Sodium levelOrdered By: Madeleine Cruz on 07-31-2024 Sodium [Moles/Vol] 138 mmol/L 136-145 [facility] Total proteinOrdered By: Estee Cruz on 07-31-2024 Protein [Mass/Vol] 7.2 g/dL 6.4-8.2 [facility] White blood cell (WBC) count Ordered By: Sheyla Cruz on 07-31-2024 WBC (Bld) [#/Vol] 5.6 10*3/uL 4.4-11.0 [facility] CNOVon 06-16-2024 CNOV Office Visit (UCWSTR ) ERLINDA ZAPATA ([id number]) 1970 F Date Time Provider Department 06/16/24 3:30 PM [facility] During your visit today, we recorded the following information about you: Temperature Pulse Respiration Blood pressure 97.6 degrees 84/minute 18/minute 131/86 Weight 95.3 kg Dago Mays PA-C 06/16/2024 4:35 PM Signed This note was created using Vi[employer]iriter. Subjective Erlinda Zapata is a 54 year old female. HPI Patient presents with cough, hoarse voice and sore throat over the past 2 days. No fever. She has had some bodyaches. No vomiting or diarrhea. Denies chest pain or shortness of breath. No history of asthma. No wheezing. Review of Systems Constitutional: Positive for fatigue. Negative for fever. HENT: Positive for congestion, ear pain, sore throat and voice change. Respiratory: Positive for cough. Negative for shortness of breath and wheezing. Musculoskeletal: Positive for myalgias. All other systems reviewed and are negative. PAST MEDICAL HISTORY Diagnosis Date Acute gastritis without mention of hemorrhage Diaphragmatic hernia without mention of obstruction or gangrene Diarrhea Heartburn Rheumatoid arthritis(714.0) Unspecified asthma(493.90) Unspecified constipation Unspecified hypothyroidism Current Outpatient Medications Medication Sig Dispense Refill liothyronine (CYTOMEL) 5 mcg tablet Take 1 tablet by mouth once daily. FOLIC ACID ORAL Take by mouth. leucovorin (LEUCOVORIN) 15 mg tablet levothyroxine (SYNTHROID) 112 mcg tablet Take 112 mcg by mouth once daily. methotrexate sodium (TREXALL) 5 mg tablet Not sure dose: takes 5 tabs once a week omeprazole(PRILOSEC 20 MG CAP) Take one(1) capsule daily. 0 Estradiol (ESTRACE) 0.5 mg tablet Take 1 tablet by mouth every afternoon. (Patient not taking: Reported on 06/16/2024) XELJANZ XR 11 mg tablet, extended release (Patient not taking: Reported on 06/16/2024) No current facility-administered medications for this visit. [...] BREAST 2006 Breast reduction TONSILLECTOMY PRIMARY/SECONDARY Tonsillectomy FAMILY HISTORY Problem Relation Age of Onset Hypertension Mother None Father Diabetes Paternal Grandmother other (PSORIASIS) Paternal Grandmother Social History Tobacco Use Smoking status: Never Smokeless tobacco: Never Substance Use Topics Alcohol use: No Drug use: No Objective BP 131/86 Pulse 84 Temp 36.4 ?C (97.6 ?F) Resp 18 Wt 95.3 kg (210 lb 1.6 oz) LMP 08/12/2016 SpO2 99% BMI 31.48 kg/m? Physical Exam Vitals reviewed. Constitutional: Appearance: Normal appearance. HENT: Head: Normocephalic and atraumatic. Right Ear: Tympanic membrane, ear canal and external ear normal. Left Ear: Tympanic membrane, ear canal and external ear normal. Nose: Nose normal. Mouth/Throat: Mouth: Mucous membranes are moist. Pharynx: Uvula midline. Posterior oropharyngeal erythema present. No pharyngeal swelling, oropharyngeal exudate or uvula swelling. Tonsils: No tonsillar exudate. Cardiovascular: Rate and Rhythm: Normal rate and regular rhythm. Heart sounds: Normal heart sounds. Pulmonary: Effort: Pulmonary effort is normal. Breath sounds: Normal breath sounds. Musculoskeletal: Cervical back: Neck supple. Lymphadenopathy: Cervical: No cervical adenopathy. Skin: General: Skin is warm and dry. Neurological: Mental Status: She is alert. Assessment and Plan ASSESSMENT/PLAN: 1. Viral URI with cough - ICD9: 465.9, ICD10: J06.9 - Discussed viral etiology and rationale for treatment. - Symptomatic treatment with prn analgesia - Supportive care with fluids and rest - The patient may also use OTC cough and cold meds as needed. - Follow up in 3-5 days if symptoms persist or sooner if worsening of symptoms - strep test negative EUSEBIO Jiménez-C Allergies As of Date: 06/16/2024 Noted Allergy Reaction OXYCODONE 12/04/2017 8 - GI Upset ROCEPHIN (CEFTRIAXONE SODIUM) 01/03/2006 4 - Hives Date Reviewed: 06/16/2024 Reviewed by: Jolie Espinoza MA - Fully Assessed Reason for Visit: Sore Throat [200] Cmt: Cough, hoarse voice x2 days Primary Visit Diagnosis:Viral URI with cough [J06.9] Order(s):STREP A MOLECULAR (POC) [6955701] Order #: [id number]. #:[id number] Prescri (more content not included)... Normal [facility] STREP A MOLECULAR (POC)on Procedural Control Valid [facility] Strep A (POCT) Negative Negative [facility] MAMMOGRAM SCREENING BILAT ERAL W/TOMOon 05-27-2024 MA MAMMOGRAM SCREENING BILATERAL W/ABDIRIZAK ORIGINAL FROM: [facility] [address] [address] PROCEDURE [facility]: [facility] [address] [place] [id number] Home: PID#: [id number] Exam#: [id number] : 1970 Age: 54 TO: VAGRAS RENTERIALAY DO [address] [facility] [address] [place], [place] [address] Fax: NO FAX EXAMINATION: SCREENING DIGITAL BILATERAL MAMMOGRAM WITH TOMOSYNTHESIS, 05/27/2024 3:30 pm TECHNIQUE: Screening mammography of the bilateral breasts was performed with tomosynthesis. 2D standard and 3D tomosynthesis combination imaging performed through both breasts in the MLO and CC projection. Computer aided detection was utilized in the interpretation of this exam. COMPARISON: 01/23/2023 HISTORY: Breast cancer screening. FINDINGS: BREAST DENSITY: There are scattered areas of fibroglandular density. There are bilateral benign breast calcifications. There are no significant masses or calcifications. IMPRESSION: No mammographic evidence of malignancy. Continued screening with annual mammograms is recommended. Mari Valentino risk calculations, generated with the history provided, report this patient's 10 year risk and lifetime risk for developing breast cancer at 1.8% and 6.4%, respectively. Based on this assessment tool, if the patient's calculated lifetime risk is below 20%, then the patient is considered at average risk for developing breast cancer. If the patient's calculated lifetime risk is at or above 20%, then the patient is considered high risk for developing breast cancer and may be a candidate for supplemental breast MRI screening in addition to annual mammographic screening per the [place] [employer]. BIRADS: BI-RADS: 2: Benign RECALL: 1 year screening RECALL TYPE: mammo LETTER SENT: Normal BI-RADS 1 and 2 Interpreted by: Noel Haddad MD Preliminary Report By: Noel Haddad MD Electronically signed By Noel Haddad MD Dictated Date: 05/27/2024 5:14:54 PM Prelim Date: 05/27/2024 5:16:50 PM Sign Date: 05/27/2024 5:16:50 PM Ordering Provider: VARGAS SERRA Bicycle Service Technician: STEVE MITCHELL RT(R)(M)(CT) [employer] MANAGEMENT SPECIALIST letter sent: Normal BI-RADS 1 and 2 Mammogram BI-RADS: [address] [facility] [employer] [facility] Sp[employer] Inj on 05-25-20[address] [facility] [address] [place] [id number] [employer] MR#: [id number] Acct: [id number] Name: ERLINDA ZAPATA TOAN Rep #: [id number] : 1970 F 54 From: Sivakumar miranda MD PCP: Dr. Vargas Serra, DO Status: [facility] Study: Fluor Guidance for Spine Inj Date of Exam: Exam# [id number] Ordering [place]: [place] [id number] PROCEDURE: Caudal epidural. DATE OF EXAMINATION: May 25, 2024. INDICATION: Female, 54 years old. Chronic low back pain. FLUOROSCOPY TIME (if supplied): (4 6) minutes/seconds. One image was submitted. RAD/Fluor Guidance for Spine Inj IMPRESSION: Fluoroscopic services provided for caudal epidural. Electronically Signed: Sivakumar Avendano MD at 9:02 EDT , CC: Dr. Heron Xiao MD; Dr. Vargas Serra DO Campus Director: Signed [facility] MR/POSTOP.ANE 05-25-2024 MR/POSTOP.[facility] Medical Records Department [address] [place] [address] Anesthesia Postop Eval I 05/25/24 1233 MR#: [id number] Acct: [id number] Name: ERLINDA ZAPATA TOAN Rep #: [id number] : 1970 54 From: Sage Michelle PCP: Dr. Vargas Serra, Status:[facility] Y Race: C Location: [facility] Anesthesia: Postop Eval I Current Vital Signs Temperature: 97.8 F Pulse Rate: 97 Blood Pressure: 137/98 Respiratory Rate: 16 Pulse Ox: 97 Oxygen Delivery Method: Room Air Assessment Airway patent: Yes Spontaneous unlabored respirations: Yes Mental status: Asleep nausea: No Vomiting: No Anesthesia Complication: No Fluid Hydration Crystalloid volume administer (ml): 20 Total IV fluid infused: 20 Progress Note Anesthesia document: Postop Eval 1 completed: Yes 05/25/24 1503 Date Sage Hernandez Signature: Date CC: Signed [facility] MR/[id number] 05-25-2024 MR/POSTOPAN2 [facility] Medical Records Department [address] [place] [address] Anesthesia Postop Eval II 05/25/24 1453 MR#: [id number] Acct: [id number] Name: ERLINDA ZAPATA Rep #: [id number] : 1970 54 From: Dov Sorenson MD PCP: Dr. Vargas Serra, DO Status:[facility] Y Race: C Location: [facility] Anesthesia Postop Eval I Sum Postop Eval Completion status Anesthesia document: Postop Eval 1 completed: Yes Anesthesia Postop Eval I Summary Anesthesia Postop Eval I Summary: Anesthesia Postop Eval I: Assessment Summary Airway patent Yes 05/25/24 12:34 [email or web address] Spontaneous unlabored Yes 05/25/24 12:34 [email or web address] respirations Mental status Asleep 05/25/24 12:34 [email or web address] nausea No 05/25/24 12:34 [email or web address] Vomiting No 05/25/24 12:34 [email or web address] Anesthesia Postop Eval I: Fluid Summary Crystalloid volume administer 20 05/25/24 12:34 [email or web address] (ml) Colloids volume administered ( ml) Blood Product volume administered (ml) Total IV fluid infused 20 05/25/24 12:34 [email or web address] Anesthesia Postop Eval I: Summary Notes Anesthesia Complication No 05/25/24 12:34 [email or web address] Anesthesia Complication Comment: Post-operative progress note Anesthesia: Postop Eval II Evaluation Mental status: Awake and Calm Pain Level: 1 nausea: No Vomiting: No Complications Anesthesia Complication: No 05/25/24 1454 Date Dov Sorenson MD Cosigner Signature: Date CC: Signed [facility] Operative Reporton 4 Operative Report [facility] Medical Records Department [address] [place] [address] Operative Report 05/25/24 1413 MR#: [id number] Acct: [id number] Name: ERLINDA ZAPATA Rep #: [id number] : 1970 54 From: Heron Xiao MD PCP: Dr. Vargas Serra, DO Status:[facility] Location: [facility] Report of Operation Date of Procedure: 05/25/24 Pre-Operative Diagnosis: Lumbosacral radiculopathy, lumbosacral degenerative disc disease, lumbosacral spinal stenosis Post-Operative Diagnosis: Lumbosacral radiculopathy, lumbosacral degenerative disc disease, lumbosacral spinal stenosis Surgery/Procedure Performed:: Diagnostic/therapeutic caudal epidural steroid injection under fluoroscopic guidance Type of Anesthesia: MAC Estimated Blood Loss (mL): Minimal Description of Procedure: DESCRIPTION OF PROCEDURE: History and physical of today was reviewed. Risks and benefits of the procedure were explained. The patient understood and agreed to proceed. Informed consent was obtained. IV inserted per routine protocol. The patient was taken to the operating room and placed in the prone position with a pillow positioned underneath the abdomen. The lower back and tailbone area was prepped and draped in a sterile fashion using iodine x3. Under fluoroscopy guidance on a lateral view, the caudal space was identified. The skin and subcutaneous tissue was anesthetized with approximately 3 mL of 1% lidocaine using a 25-gauge regular needle. Under direct visualization with fluoroscopy, using a 22-gauge 3-1/2-inch spinal needle, the needle was advanced via the skin through the sacral hiatus. The tip of the needle was passed through the sacrococcygeal ligament and advanced to approximately S4 area. After negative aspiration of blood or CSF, a total of 3 mL of contrast was injected to confirm correct placement of the needle as well as cephalad spread. The spread was followed to approximately L5 area. After confirmation on AP as well as lateral view and repeated negative aspiration, a total of 15 mL of preservative-free 0.125% Marcaine with 80 mg of Depo-Medrol was injected easily. The needle was then removed intact. The patient experienced no sign or symptoms of intrathecal or intravascular injection. The patient experienced no paresthesia. The procedure was completed without any apparent difficulty or any complications. The patient appeared to tolerate it well. ASSESSMENT AND PLAN: This is a 54-year-old female with lumbosacral radiculopathy, lumbosacral degenerative disc disease, lumbosacral spinal stenosis status post diagnostic/therapeutic caudal epidural steroid injection, patient will continue her current medications, patient will follow up in approximately 2 weeks for reevaluation. Complications None 05/25/24 1413 Cosigner Signature (if applicable): CC: Dr. Heron Xiao MD; Dr. Vargas Serra DO Signed [facility] CBC W/Diff, Automatedon 09-2 -2023 Absolute Lymph 2.92 X10 3/uL Normal 0.83-4.51 [facility] Comment on above: Performed By: #### L 100.0100, L500.4050 #### [facility] [address] [place], [address] Absolute Neut 4.8 X10 3/uL Normal 2.0-7.7 [facility] Comment on above: Performed By: #### L 100.0100, L500.4050 #### [facility] [address] [place], [address] Basophils/100 WBC (Bld) 0.5 % Normal 0-1 [facility] Comment on above: Performed By: #### L 100.0100, L500.4050 #### [facility] [address] [place], [address] Eosinophils/100 WBC (Bld) 1.7 % Normal 0-5 [facility] Comment on above: Performed By: #### L 100.0100, L500.4050 #### [facility] [address] [place], [address] Erythrocyte distribution width (RBC) [Ratio] 12.7 % Normal 11.6-14.6 [facility] Comment on above: Performed By: #### L 100.0100, L500.4050 #### [facility] [address] [place], [address] Hematocrit (Bld) [Volume fraction] 40.0 % Normal 37-47 [facility] Comment on above: Performed By: #### L 100.0100, L500.4050 #### [facility] [address] [place], [address] Hemoglobin (Bld) [Mass/Vol] 13.3 g/dL Normal 12.0-15.0 [facility] Comment on above: Performed By: #### L 100.0100, L500.4050 #### [facility] [address] [place], [address] IG% 0.900 Normal 0.0-0.9 [facility] Comment on above: Result Comment: IG% - Immature Granulocytes (promyelocytes, myelocytes and metamyelocytes) > 1% indicates that a LEFT SHIFT is Present. Performed By: #### L 100.0100, L500.4050 #### [facility] [address] [place], [address] Lymphocytes/100 WBC (Bld) 33.3 % Normal 19-41 [facility] Comment on above: Performed By: #### L 100.0100, L500.4050 #### [facility] [address] [place], [address] MCH (RBC) [Entitic mass] 30.4 pg Normal 27.0-32.0 [facility] Comment on above: Performed By: #### L 100.0100, L500.4050 #### [facility] [address] [place], [address] MCHC (RBC) [Mass/Vol] 33.3 g/dL Normal 32-36 [facility] Comment on above: Performed By: #### L 100.0100, L500.4050 #### [facility] [address] [place], [address] MCV (RBC) [Entitic vol] 91.5 fL Normal 81-99 [facility] Comment on above: Performed By: #### L 100.0100, L500.4050 #### [facility] [address] [place], [address] Monocytes/100 WBC (Bld) 8.4 % Normal 0-10 [facility] Comment on above: Performed By: #### L 100.0100, L500.4050 #### [facility] [address] [place], [address] Neutrophils/100 WBC (Bld) 55.2 % Normal 47-70 [facility] Comment on above: Performed By: #### L 100.0100, L500.4050 #### [facility] [address] [place], [address] Nucleated RBC (Bld) [#/Vol] 0 10*3/uL Normal 0-5 [facility] Comment on above: Performed By: #### L 100.0100, L500.4050 #### [facility] [address] [place], [address] Platelet mean volume (Bld) [Entitic vol] 10.5 fL Normal 6.2-12.0 [facility] Comment on above: Performed By: #### L 100.0100, L500.4050 #### [facility] [address] [place], [address] Platelets (Bld) [#/Vol] 356 10*3/uL Normal 150-450 [facility] Comment on above: Performed By: #### L 100.0100, L500.4050 #### [facility] [address] [place], [address] RBC (Bld) [#/Vol] 4.37 10*6/uL Normal 4.2-5.4 [facility] Comment on above: Performed By: #### L 100.0100, L500.4050 #### [facility] [address] [place], [address] RDW SD 42.3 fl Normal 35.1-43.9 [facility] Comment on above: Performed By: #### L 100.0100, L500.4050 #### [facility] [address] [place], [address] WBC (Bld) [#/Vol] 8.8 10*3/uL Normal 4.4-11.0 [facility] Comment on above: Performed By: #### L 100.0100, L500.4050 #### [facility] [address] [place], [address] Comprehensive Metabolic Prof ilon 04-27-2024 Albumin [Mass/Vol] 4.0 g/dL Normal 3.2-5.0 [facility] Comment on above: Performed By: #### L 100.0100, L500.4050 #### [facility] [address] [place], [address] Albumin/Globulin [Mass ratio] 1.1 {ratio} Normal 0.9-2.4 [facility] Comment on above: Performed By: #### L 100.0100, L500.4050 #### [facility] [address] [place], [address] ALK P 72 U/L Normal 45-117 [facility] Comment on above: Performed By: #### L 100.0100, L500.4050 #### [facility] [address] [place], [address] ALT [Catalytic activity/Vol] 36 U/L Normal 13-56 [facility] Comment on above: Performed By: #### L 100.0100, L500.4050 #### [facility] [address] [place], [address] AST [Catalytic activity/Vol] 18 U/L Normal 15-37 [facility] Comment on above: Performed By: #### L 100.0100, L500.4050 #### [facility] [address] [place], [address] Bilirubin [Mass/Vol] 0.20 mg/dL Normal 0.20-1.00 [facility] Comment on above: Result Comment: For patients on eltrombopag therapy, use of Dimension Bradley TBIL is not recommended. Performed By: #### L 100.0100, L500.4050 #### [facility] [address] [place], [address] BUN/CRE 26.1 RATIO High 10-20 [facility] Comment on above: Performed By: #### L 100.0100, L500.4050 #### [facility] [address] [place], [address] CA,Total 9.6 mg/dL Normal 8.5-10.1 [facility] Comment on above: Performed By: #### L 100.0100, L500.4050 #### [facility] [address] [place], [address] Chloride [Moles/Vol] 106 mmol/L Normal 98-107 [facility] Comment on above: Performed By: #### L 100.0100, L500.4050 #### [facility] [address] [place], [address] CO2 [Moles/Vol] 27.0 mmol/L Normal 21.0-32.0 [facility] Comment on above: Performed By: #### L 100.0100, L500.4050 #### [facility] [address] [place], [address] Creatinine [Mass/Vol] 0.92 mg/dL Normal 0.55-1.02 [facility] Comment on above: Result Comment: The validity of the calculated GFR GFRAA in patients over 70 years has not been determined. Clinical correlation is essential. Performed By: #### L 100.0100, L500.4050 #### [facility] [address] [place], [address] EST GFR - AA 82 mL/min Normal >60 [facility] Comment on above: Result Comment: Afri can Colombian GFR Calc Performed By: #### L 100.0100, L500.4050 #### [facility] [address] [place], [address] GAP 6 Normal 5-15 [facility] Comment on above: Performed By: #### L 100.0100, L500.4050 #### [facility] [address] [place], [address] GFR/1.73 sq M.predicted among non-blacks MDRD (S/P/Bld) [Vol rate/Area] 68 mL/min/{1.73_m2} Normal >60 [facility] Comment on above: Result Comment: Non- GFR Calc Performed By: #### L 100.0100, L500.4050 #### [facility] [address] [place], [address] Globulin (S) [Mass/Vol] 3.5 g/dL Normal 2.2-4.2 [facility] Comment on above: Performed By: #### L 100.0100, L500.4050 #### [facility] [address] [place], [address] Glucose [Mass/Vol] 92 mg/dL Normal 74-106 [facility] Comment on above: Performed By: #### L 100.0100, L500.4050 #### [facility] [address] [place], [address] Potassium [Moles/Vol] 3.9 mmol/L Normal 3.5-5.1 [facility] Comment on above: Performed By: #### L 100.0100, L500.4050 #### [facility] [address] [place], [address] Sodium [Moles/Vol] 139 mmol/L Normal 136-145 [facility] Comment on above: Performed By: #### L 100.0100, L500.4050 #### [facility] [address] [place], [address] T PROT 7.5 g/dL Normal 6.4-8.2 [facility] Comment on above: Performed By: #### L 100.0100, L500.4050 #### [facility] [address] [place], [address] Urea nitrogen [Mass/Vol] 24 mg/dL High 7-18 [facility] Comment on above: Performed By: #### L 100.0100, L500.4050 #### [facility] [address] [place], [address] Surgery Visit Reporton 04-24 Surgery Visit Report [facility] [address] [place], [place] [address] OFFICE VISIT Date of Service: 04/24/24 MR#: [id number] Acct: [id number] Name: ERLINDA ZAPATA TOAN Rep #: [id number] : 1970 Provider: Dr. Noel romero MD Age/Sex: 54/F Location: [facility] Status: Signed Intake Vital Signs 04/15/24 08:24 Height 5 ft 8 in Weight: 216 lb BMI 32.8 BP 134/78 H Blood Pressure Location Rt brachial Position Sitting Respiration 18 Pulse 62 Pulse Source Monitor Pulse Oximetry (%) 99 Oxygen Delivery Method room air Intake Visit Reasons: F/U DIVERTICULITIS Chief Complaint: bad diarrhea, abd pain Allergies ceftriaxone sodium (From Rocephin) Allergy (Verified 04/24/24 15:10) Rash oxycodone Adverse Reaction (Verified 04/24/24 15:10) Nausea/Vom/Diarrhea Medications ???Medication ???Instructions ???Recorded ???Confirmed ???Type levothyroxine 112 mcg tablet 125 mcg PO DAILY 06/25/13 04/24/24 History omeprazole 20 mg capsule,delayed 20 mg PO PRN Indigestion 11/27/17 04/24/24 History release ibuprofen 600 mg tablet 600 mg PO Q6H PRN PRN Mild-Mod 12/04/17 04/24/24 Rx Pain (1-5/10) #30 tabs liothyronine 5 mcg tablet 5 mcg PO DAILY 04/23/23 04/24/24 History folic acid 1 mg tablet 1 mg PO DAILY 10/15/23 04/24/24 History cyclobenzaprine 10 mg tablet 10 mg PO TID PRN Muscle Spasm #20 10/18/23 04/24/24 Rx TABLETS PFSH Medical History (Updated 04/24/24 @ 17:[address] Noel Roberts MD) Wears dentures Wears glasses Depression Thyroid disease Back pain History of hiatal hernia History of diverticulitis Gastric reflux Former smoker Arthritis, rheumatoid Fibromyalgia Hypothyroidism Arthritis Surgical History Hx of tubal ligation Hx of bilateral breast reduction surgery Hx of hysterectomy Hx of colonoscopy History of tonsillectomy History of shoulder surgery History of neck surgery History of foot operation History of carpal tunnel release Social History Smoking Status: Former smoker alcohol intake: current alcohol intake frequency: holidays/special occasions only HPI HPI HPI: Patient is a 54-year-old female who follows up after a consultation visit 04/15/2024 for concerns for recurrent diverticulitis. A fairly extensive workup was conducted during this time interval and patient was made aware of the results of this workup that included CT imaging of the abdomen pelvis, blood chemistries, stool studies, and urine culture. Ultimately the only positive finding was evidence of a history of toxigenic C. difficile infection but both toxin and antigen testing were negative. Patient shares that she is still in pain but describes the pain today as being primarily in her left flank posteriorly. She reports seeing Dr. Schmidt of pain management and Dr. Martinez, her PCP, in the same interval. She relates that laboratories obtained for Dr. Martinez are largely unremarkable and that Dr. Schmidt placed her on a steroid pack empirically but this has not alleviated her discomfort. She confirms that she is still performing all her regular duties at work which includes frequent lifting and bending and twisting. She describes her pain as a dull ache that is worse with movement and manifests as a feeling of a pulled muscle. She shares that she is eagerly looking forward to her detention for work next February but has not found it easy to obtain light duty. 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 Exam Const General: cooperative, comfortable and no acute distress Orientation: alert, awake and oriented x3 Resp Effort Inspection: normal respiratory effort GI Other: Mildly distended, soft, nontender to palpation x 4 quadrants (apart from very mild tenderness elicited with deep palpation of the left lower quadrant) Musc Thoracic/Lumbar Spine: thoracic spinal tenderness (Patient describes significant paraspinal tenderness along the lower T-spine) Assessment and Plan Assessment and Plan (1) Left lower quadrant abdominal pain: Status: Acute Comment: Patient is a 53-year-old female with a history of acute complicated diverticulitis that resolved through placement of percutaneous drain in April 2023 who presented earlier last month with signs and symptoms concerning for a recurrent bout of uncomplicated diverticulitis and is now fully recovered. She did have a ER visit just 3 days after our clinic visit and underwent CT imaging that did not find any evidence of diverticular disease, but she completed the empiric antibiotic regimen even still and her abdominal exam is completely benign today. She (more content not included)... Normal [facility] .Auto Diffon 04-18-2024 Basophil, Absolute 0.0 10 3/mcL Normal 0.0-0.2 [facility] Comment on above: Performed By: #### F T3, TSH, FT4 #### [address] [address] Basophils/100 WBC (Bld) 0.8 % Normal 0.0-2.5 [facility] Comment on above: Performed By: #### F T3, TSH, FT4 #### [address] [place], [place] [address] Eosinophil, Absolute 0.1 10 3/mcL Normal 0.0-0.4 [facility] Comment on above: Performed By: #### F T3, TSH, FT4 #### Sandi [address] [address] Eosinophils/100 WBC (Bld) 2.6 % Normal 0.0-7.0 [facility] Comment on above: Performed By: #### F T3, TSH, FT4 #### [address] [address] Lymphocyte, Absolute 1.4 10 3/mcL Normal 0.8-3.9 [facility] Comment on above: Performed By: #### F T3, TSH, FT4 #### [address] [address] Lymphocytes/100 WBC (Bld) 30.7 % Normal 10.0-50.0 [facility] Comment on above: Performed By: #### F T3, TSH, FT4 #### [address] [address] Monocyte, Absolute 0.4 10 3/mcL Normal 0.2-1.0 [facility] Comment on above: Performed By: #### F T3, TSH, FT4 #### [address] [address] Monocytes/100 WBC (Bld) 8.4 % Normal 1.7-13.0 [facility] Comment on above: Performed By: #### F T3, TSH, FT4 #### [address] [address] Neutrophils/100 WBC (Bld) 57.5 % Normal 37.0-80.0 [facility] Comment on above: Performed By: #### F T3, TSH, FT4 #### [address] [address] .GFRon 04-18-2024 GFR 91 ml/min/1.73sqm Normal [facility] Comment on above: Result Comment: GFR Population mean for , Non- Americans Ages 20-29 = 116 mL/min/1.73 sq.m. Ages 30-39 = 107 mL/min/1.73 sq.m. Ages 40-49 = 99 mL/min/1.73 sq.m. Ages 50-59 = 93 mL/min/1.73 sq.m. Ages 60-69 = 85 mL/min/1.73 sq.m. Ages 70+ = 75 mL/min/1.73 sq.m. Chronic Kidney Disease: Less than 60 mL/min/1.73 square meters End Stage Renal Disease: Less than 15 mL/min/1.73 square meters Performed By: #### F T3, TSH, FT4 #### [address] [address] GFR Non- 75 ml/min/1.73sqm Normal [facility] Comment on above: Result Comment: GFR Population mean for , Non- Americans Ages 20-29 = 116 mL/min/1.73 sq.m. Ages 30-39 = 107 mL/min/1.73 sq.m. Ages 40-49 = 99 mL/min/1.73 sq.m. Ages 50-59 = 93 mL/min/1.73 sq.m. Ages 60-69 = 85 mL/min/1.73 sq.m. Ages 70+ = 75 mL/min/1.73 sq.m. Chronic Kidney Disease: Less than 60 mL/min/1.73 square meters End Stage Renal Disease: Less than 15 mL/min/1.73 square meters Performed By: #### F T3, TSH, FT4 #### [address] [address] .NEUABSon 04-18-2024 Neutrophil, Absolute 2.6 10 3/mcL Low 2.9-6.2 [facility] Comment on above: Performed By: #### F T3, TSH, FT4 #### [address] [address] CBCon 04-18-2024 Erythrocyte distribution width (RBC) [Ratio] 13.8 % Normal 11.5-14.5 [facility] Comment on above: Performed By: #### F T3, TSH, FT4 #### [address] [address] Hematocrit (Bld) [Volume fraction] 39.5 % Normal 37.0-47.0 [facility] Comment on above: Performed By: #### F T3, TSH, FT4 #### [address] [address] Hgb 13.7 G/dL Normal 12.0-16.0 [facility] Comment on above: Performed By: #### F T3, TSH, FT4 #### [address] [address] MCH (RBC) [Entitic mass] 31.5 pg High 27.0-31.2 [facility] Comment on above: Performed By: #### F T3, TSH, FT4 #### [address] [address] MCHC 34.7 G/dL Normal 33.0-37.0 [facility] Comment on above: Performed By: #### F T3, TSH, FT4 #### [address] [address] MCV (RBC) [Entitic vol] 90.9 fL Normal 80.0-94.0 [facility] Comment on above: Performed By: #### F T3, TSH, FT4 #### [address] [address] Platelet 277 10 3/mcL Normal 130-400 [facility] Comment on above: Performed By: #### F T3, TSH, FT4 #### [address] [address] Platelet mean volume (Bld) [Entitic vol] 8.8 fL Normal 7.4-10.4 [facility] Comment on above: Performed By: #### F T3, TSH, FT4 #### [address] [address] RBC 4.35 10 6/mcL Normal 4.20-5.40 [facility] Comment on above: Performed By: #### F T3, TSH, FT4 #### [address] [address] WBC 4.5 10 3/mcL Low 4.6-10.8 [facility] Comment on above: Performed By: #### F T3, TSH, FT4 #### [address] [address] CMPon 04-18-2024 Albumin Level 3.9 G/dL Normal 3.5-5.0 [facility] Comment on above: Performed By: #### F T3, TSH, FT4 #### [address] [address] Albumin/Globulin [Mass ratio] 1.2 {ratio} Normal 1.1-2.5 [facility] Comment on above: Performed By: #### F T3, TSH, FT4 #### [address] [address] ALP [Catalytic activity/Vol] 63 U/L Normal 40-135 [facility] Comment on above: Performed By: #### F T3, TSH, FT4 #### [address] [address] ALT [Catalytic activity/Vol] 56 U/L Normal 14-59 [facility] Comment on above: Performed By: #### F T3, TSH, FT4 #### [address] [address] AST [Catalytic activity/Vol] 26 U/L Normal 10-40 [facility] Comment on above: Performed By: #### F T3, TSH, FT4 #### [address] [address] Bili Total 0.4 mg/dL Normal 0.2-1.0 [facility] Comment on above: Result Comment: Use of this assay is not recommended for patients undergoing treatment with eltrombopag due to the potential for falsely elevated results. Performed By: #### F T3, TSH, FT4 #### [address] [address] BUN/Creatinine Ratio 19 ratio Normal 7-27 [facility] Comment on above: Performed By: #### F T3, TSH, FT4 #### [address] [address] Calcium [Mass/Vol] 9.8 mg/dL Normal 8.4-10.2 [facility] Comment on above: Performed By: #### F T3, TSH, FT4 #### [address] [address] Chloride [Moles/Vol] 101 mmol/L Normal 98-107 [facility] Comment on above: Performed By: #### F T3, TSH, FT4 #### [address] [address] CO2 [Moles/Vol] 34 mmol/L High 22-29 [facility] Comment on above: Performed By: #### F T3, TSH, FT4 #### [address] [address] Creatinine [Mass/Vol] 0.80 mg/dL Normal 0.55-1.02 [facility] Comment on above: Result Comment: Test ing performed on Siemens Dimension EXL analyzer using a modified kinetic Brittanie technique. Performed By: #### F T3, TSH, FT4 #### [address] [address] Electrolyte Balance 4.0 mEq/L Normal 4.0-15.0 [facility] Comment on above: Performed By: #### F T3, TSH, FT4 #### [address] [address] Globulin 3.2 G/dL Normal [facility] Comment on above: Performed By: #### F T3, TSH, FT4 #### [address] [address] Glucose [Mass/Vol] 111 mg/dL High 70-105 [facility] Comment on above: Performed By: #### F T3, TSH, FT4 #### [address] [address] Potassium [Moles/Vol] 4.5 mmol/L Normal 3.5-5.1 [facility] Comment on above: Performed By: #### F T3, TSH, FT4 #### [address] [address] Sodium [Moles/Vol] 139 mmol/L Normal 136-145 [facility] Comment on above: Performed By: #### F T3, TSH, FT4 #### [address] [address] Total Protein 7.1 G/dL Normal 6.4-8.2 [facility] Comment on above: Performed By: #### F T3, TSH, FT4 #### [address] [address] Urea nitrogen [Mass/Vol] 15 mg/dL Normal 7-18 [facility] Comment on above: Performed By: #### F T3, TSH, FT4 #### [address] [address] FT3on 04-18-2024 Free T3 [Mass/Vol] 2.79 pg/mL Normal 2.30-4.00 [facility] Comment on above: Performed By: #### F T3, TSH, FT4 #### [address] [address] FT4on 04-18-2024 Free T4 [Mass/Vol] 0.88 ng/dL Normal 0.76-1.46 [facility] Comment on above: Performed By: #### F T3, TSH, FT4 #### [address] [address] LABORATORYOrdered By: SYSTEM SYSTEM on 04-18-2024 25-hydroxyvitamin D3 [Mass/Vol] 61.5 ng/mL Invalid Interpretation Code AO ADM SS Comment on above: Interpretive Data: I nterpretive Values Based on Total 25(OH) Vitamin D: Deficient <20 ng/mL Insufficient 20 - <30 ng/mL Sufficient 30-100 ng/mL Albumin BCP dye [Mass/Vol] 3.9 G/dL Normal 3.5 - 5.0 G/dL AO ADM SS Albumin/Globulin [Mass ratio] 1.2 {ratio} Normal 1.1 - 2.5 ratio AO ADM SS ALP [Catalytic activity/Vol] 63 U/L Normal 40 - 135 U/L AO ADM SS ALT With P-5'-P [Catalytic activity/Vol] 56 U/L Normal 14 - 59 U/L AO ADM SS AST With P-5'-P [Catalytic activity/Vol] 26 U/L Normal 10 - 40 U/L AO ADM SS Basophils (Bld) [#/Vol] 0.0 103/mcL Normal 0.0 - 0.2 10^3/mcL AO Workflow SS Basophils/100 WBC (Bld) 0.8 % Normal 0.0 - 2.5 % AO Workflow SS Bilirubin [Mass/Vol] 0.4 mg/dL Normal 0.2 - 1 .0 mg/dL AO ADM SS Comment on above: Interpretive Data: U se of this assay is not recommended for patients undergoing treatment with eltrombopag due to the potential for falsely elevated results. Calcium [Mass/Vol] 9.8 mg/dL Normal 8.4 - 10. 2 mg/dL AO ADM SS Chloride [Moles/Vol] 101 mmol/L Normal 98 - 10 7 mmol/L AO ADM SS CO2 [Moles/Vol] 34 mmol/L High 22 - 29 mmol/L AO ADM SS Creatinine [Mass/Vol] 0.80 mg/dL Normal 0.55 - 1.02 mg/dL AO ADM SS Comment on above: Interpretive Data: T esting performed on Siemens Dimension EXL analyzer using a modified kinetic Brittanie technique. Electrolyte Balance 4.0 mEq/L Normal 4.0 - 15 .0 mEq/L AO ADM SS Eosinophil, Absolute 0.1 103/mcL Normal 0.0 - 0 .4 10^3/mcL AO Workflow SS Eosinophils/100 WBC (Bld) 2.6 % Normal 0.0 - 7.0 % AO Workflow SS Erythrocyte distribution width (RBC) [Ratio] 13.8 % Normal 11.5 - 14.5 % AO Workflow SS Free T3 [Mass/Vol] 2.79 pg/mL Normal 2.30 - 4. 00 pg/mL AO ADM SS Free T4 [Mass/Vol] 0.88 ng/dL Normal 0.76 - 1. 46 ng/dL AO ADM SS GFR/1.73 sq M.predicted among blacks MDRD (S/P/Bld) [Vol rate/Area] 91 ml/min/1.73sqm Invalid Interpretation Code AO Chemistry S Comment on above: Interpretive Data: GFR Population mean for , Non- Americans Ages 20-29 = 116 mL/min/1.73 sq.m. Ages 30-39 = 107 mL/min/1.73 sq.m. Ages 40-49 = 99 mL/min/1.73 sq.m. Ages 50-59 = 93 mL/min/1.73 sq.m. Ages 60-69 = 85 mL/min/1.73 sq.m. Ages 70+ = 75 mL/min/1.73 sq.m. Chronic Kidney Disease: Less than 60 mL/min/1.73 square meters End Stage Renal Disease: Less than 15 mL/min/1.73 square meters GFR/1.73 sq M.predicted among non-blacks MDRD (S/P/Bld) [Vol rate/Area] 75 ml/min/1.73sqm Invalid Interpretation Code AO Chemistry S Comment on above: Interpretive Data: GFR Population mean for , Non- Americans Ages 20-29 = 116 mL/min/1.73 sq.m. Ages 30-39 = 107 mL/min/1.73 sq.m. Ages 40-49 = 99 mL/min/1.73 sq.m. Ages 50-59 = 93 mL/min/1.73 sq.m. Ages 60-69 = 85 mL/min/1.73 sq.m. Ages 70+ = 75 mL/min/1.73 sq.m. Chronic Kidney Disease: Less than 60 mL/min/1.73 square meters End Stage Renal Disease: Less than 15 mL/min/1.73 square meters Globulin 3.2 G/dL Invalid Interpretation Code AO ADM SS Glucose [Mass/Vol] 111 mg/dL High 70 - 105 mg/dL AO ADM SS Hematocrit (Bld) [Volume fraction] 39.5 % Normal 37.0 - 47.0 % AO Workflow SS Hemoglobin (Bld) [Mass/Vol] 13.7 G/dL Normal 12.0 - 16.0 G/dL AO Workflow SS Lymphocytes (Bld) [#/Vol] 1.4 103/mcL Normal 0.8 - 3.9 10^3/mcL AO Workflow SS Lymphocytes/100 WBC (Bld) 30.7 % Normal 10.0 - 50.0 % AO Workflow SS MCH (RBC) [Entitic mass] 31.5 pg High 27.0 - 31.2 pg AO Workflow SS MCHC 34.7 G/dL Normal 33.0 - 37.0 G/dL AO Workflow SS MCV (RBC) [Entitic vol] 90.9 fL Normal 80.0 - 94.0 fL AO Workflow SS Monocytes (Bld) [#/Vol] 0.4 103/mcL Normal 0.2 - 1.0 10^3/mcL AO Workflow SS Monocytes/100 WBC (Bld) 8.4 % Normal 1.7 - 13.0 % AO Workflow SS Neutrophils (Bld) [#/Vol] 2.6 103/mcL Low 2.9 - 6.2 10^3/mcL AO Workflow SS Neutrophils/100 WBC (Bld) 57.5 % Normal 37.0 - 80.0 % AO Workflow SS Platelet mean volume (Bld) [Entitic vol] 8.8 fL Normal 7.4 - 10.4 fL AO Workflow SS Platelets (Bld) [#/Vol] 277 103/mcL Normal 130 - 400 10^3/mcL AO Workflow SS Potassium [Moles/Vol] 4.5 mmol/L Normal 3.5 - 5.1 mmol/L AO ADM SS Protein [Mass/Vol] 7.1 G/dL Normal 6.4 - 8.2 G/dL AO ADM SS RBC (Bld) [#/Vol] 4.35 106/mcL Normal 4.20 - 5.4 0 10^6/mcL AO Workflow SS Sodium [Moles/Vol] 139 mmol/L Normal 136 - 145 mmol/L AO ADM SS TSH Qn 1.14 m[IU]/L Normal 0.36 - 3.74 mcIU/mL AO ADM SS Urea nitrogen [Mass/Vol] 15 mg/dL Normal 7 - 18 mg/dL AO ADM SS Urea nitrogen/Creatinine [Mass ratio] 19 ratio Normal 7 - 27 ratio AO ADM SS WBC (Bld) [#/Vol] 4.5 103/mcL Low 4.6 - 10.8 10^3/mcL AO Workflow SS LABORATORYOrdered By: Windy Freeman on 04-18-2024 Cholesterol [Mass/Vol] 170 mg/dL Normal 0 - 2 00 mg/dL AO ADM SS Comment on above: Interpretive Data: C holesterol Reference Interval: Less than 200 Desirable 200-239 Borderline high risk 240 and above High risk Cholesterol in HDL [Mass/Vol] 57 mg/dL Normal 40 - 60 mg/dL AO ADM SS Cholesterol in LDL [Mass/Vol] 98 mg/dL Normal 0 - 130 mg/dL AO ADM SS Triglyceride [Mass/Vol] 77 mg/dL Normal 0 - 150 mg/dL AO ADM SS Comment on above: Interpretive Data: T riglyceride Reference Interval: Less than 150 Normal 150-199 Borderline high risk 200-499 High risk 500 or higher Very high risk LIPIDon 04-18-2024 Cholesterol [Mass/Vol] 170 mg/dL Normal 0-200 [facility] Comment on above: Result Comment: Chol esterol Reference Interval: Less than 200 Desirable 200-239 Borderline high risk 240 and above High risk Performed By: #### F T3, TSH, FT4 #### [address] [address] Cholesterol in HDL [Mass/Vol] 57 mg/dL Normal 40-60 [facility] Comment on above: Performed By: #### F T3, TSH, FT4 #### [address] [address] Cholesterol in LDL [Mass/Vol] 98 mg/dL Normal 0-130 [facility] Comment on above: Performed By: #### F T3, TSH, FT4 #### [address] [address] Triglyceride [Mass/Vol] 77 mg/dL Normal 0-150 [facility] Comment on above: Result Comment: Trig lyceride Reference Interval: Less than 150 Normal 150-199 Borderline high risk 200-499 High risk 500 or higher Very high risk Performed By: #### F T3, TSH, FT4 #### [address] [address] TSHon 04-18-2024 TSH Qn 1.14 m[IU]/L Normal 0.36-3.74 [facility] Comment on above: Performed By: #### F T3, TSH, FT4 #### [address] [address] Urine Cultureon 04-18-2024 URC Culture exhibits no growth. [facility] Comment on above: Performed By: #### M 100.2200 #### [facility] [address] [place], [address] VIDHon 04-18-2024 Vit. D 25-Hydroxy 61.5 ng/mL Normal [facility] Comment on above: Result Comment: Inte rpretive Values Based on Total 25(OH) Vitamin D: Deficient <20 ng/mL Insufficient 20 - <30 ng/mL Sufficient 30-100 ng/mL Performed By: #### F T3, TSH, FT4 #### [facility] [address] [place], [place] [address] Abdomen/Pelvis WITH Contrast on 04-16-2024 Abdomen/Pelvis WITH Contrast [facility] [address] [address] Abdomen/Pelvis WITH Contrast MR#: [id number] Acct: [id number] Name: ERLINDA ZAPATA TOAN Rep #: [id number] : 1970 F 54 From: Lucinda White MD PCP: Dr. Vargas Serra, DO Status: [facility] CLI Study: Abdomen/Pelvis WITH Contrast Date of Exam: 07/28 Exam# [id number] Ordering Dr: [place] [id number] EXAM: CT ABDOMEN AND PELVIS WITH INTRAVENOUS CONTRAST CLINICAL INDICATION: abdominal pain/diarrhea TECHNIQUE: Helically acquired images were obtained of the abdomen and pelvis with intravenous contrast. This CT exam was performed using one or more of the following dose reduction techniques: automated exposure control, adjustment of the mA and/or kV according to patient size, and/or use of iterative reconstruction technique. CONTRAST: Oral and amp;amp; IV Gastrografin and amp;amp; 100mL Isovue-370 RADIATION DOSE: CTDIvol = 20.42 mGy, DLP = 1318.20 mGy-cm. COMPARISON: October 18, 2023. FINDINGS: LOWER THORAX: Slight hiatal hernia. Lung bases are clear. No cardiomegaly. No significant pericardial effusion. ABDOMEN: LIVER: A few tiny hepatic calcified granulomas are again noted. GALLBLADDER AND BILE DUCTS: Unremarkable. No calcified gallstones. No gallbladder distention or wall edema. No intra- or extrahepatic biliary ductal dilation. PANCREAS: Unremarkable. No focal cystic or solid mass. SPLEEN: Unremarkable. Normal size without focal cystic or solid mass. ADRENALS: Unremarkable. No nodules. KIDNEYS AND URETERS: See below. STOMACH AND BOWEL: Oral contrast reached most distal small bowel loops, no evidence of obstruction. Mild gas and stool in the proximal half of the colon. Mild descending colon and sigmoid diverticulosis, no evidence of acute diverticulitis. PELVIS: APPENDIX: Normal retrocecal appendix. BLADDER: Unremarkable. REPRODUCTIVE: Hysterectomy again noted. ABDOMEN and PELVIS: INTRAPERITONEAL SPACE: Unremarkable. No ascites or other fluid collection. No free air. BONES/JOINTS: Unremarkable. No suspicious lytic or blastic abnormality. SOFT TISSUES: Unremarkable. No discrete abdominal or pelvic wall hernia. VASCULATURE: Phleboliths in the pelvis, no ureter stone. Abdominal aorta is non-dilated. LYMPH NODES: Unremarkable. No enlarged lymph nodes. CT/Abdomen/Pelvis WITH Contrast IMPRESSION: 1. No specific acute abnormality. 2. Small hiatal hernia. Mild diverticulosis. Hysterectomy. Electronically Signed: Lucinda White MD at 19:19 EDT Reading Location ID and State: [facility] / [place] Tel , Service support , CC: Dr. Vargas Serra, ; Dr. Noel Roberts MD Campus Director: Signed Normal [facility] CBC W/Diff, Automatedon 04-05 Absolute Lymph 1.69 X10 3/uL Normal 0.83-4.51 [facility] Comment on above: Performed By: #### L 100.0100 ####[facility] [address] [place], [address] Absolute Neut 2.7 X10 3/uL Normal 2.0-7.7 [facility] Comment on above: Performed By: #### L 100.0100 ####[facility] [address] [place], [address] Basophils/100 WBC (Bld) 1.2 % High 0-1 [facility] Comment on above: Performed By: #### L 100.0100 ####[facility] [address] [place], [address] Eosinophils/100 WBC (Bld) 3.3 % Normal 0-5 [facility] Comment on above: Performed By: #### L 100.0100 ####[facility] [address] [place], [address] Erythrocyte distribution width (RBC) [Ratio] 12.7 % Normal 11.6-14.6 [facility] Comment on above: Performed By: #### L 100.0100 ####[facility] [address] [place], [address] Hematocrit (Bld) [Volume fraction] 39.7 % Normal 37-47 [facility] Comment on above: Performed By: #### L 100.0100 ####[facility] [address] [place], [address] Hemoglobin (Bld) [Mass/Vol] 13.3 g/dL Normal 12.0-15.0 [facility] Comment on above: Performed By: #### L 100.0100 ####[facility] [address] [place], [address] IG% 0.200 Normal 0.0-0.9 [facility] Comment on above: Result Comment: IG% - Immature Granulocytes (promyelocytes, myelocytes and metamyelocytes) > 1% indicates that a LEFT SHIFT is Present. Performed By: #### L 100.0100 ####[facility] [address] [place], [address] Lymphocytes/100 WBC (Bld) 33.2 % Normal 19-41 [facility] Comment on above: Performed By: #### L 100.0100 ####[facility] [address] [place], [address] MCH (RBC) [Entitic mass] 30.7 pg Normal 27.0-32.0 [facility] Comment on above: Performed By: #### L 100.0100 ####[facility] [address] [place], [address] MCHC (RBC) [Mass/Vol] 33.5 g/dL Normal 32-36 [facility] Comment on above: Performed By: #### L 100.0100 ####[facility] [address] [place], [address] MCV (RBC) [Entitic vol] 91.7 fL Normal 81-99 [facility] Comment on above: Performed By: #### L 100.0100 ####[facility] [address] [place], [address] Monocytes/100 WBC (Bld) 8.8 % Normal 0-10 [facility] Comment on above: Performed By: #### L 100.0100 ####[facility] [address] [place], [address] Neutrophils/100 WBC (Bld) 53.3 % Normal 47-70 [facility] Comment on above: Performed By: #### L 100.0100 ####[facility] [address] [place], [address] Nucleated RBC (Bld) [#/Vol] 0 10*3/uL Normal 0-5 [facility] Comment on above: Performed By: #### L 100.0100 ####[facility] [address] [place], [address] Platelet mean volume (Bld) [Entitic vol] 10.0 fL Normal 6.2-12.0 [facility] Comment on above: Performed By: #### L 100.0100 ####[facility] [address] [place], [address] Platelets (Bld) [#/Vol] 282 10*3/uL Normal 150-450 [facility] Comment on above: Performed By: #### L 100.0100 ####[facility] [address] [place], [address] RBC (Bld) [#/Vol] 4.33 10*6/uL Normal 4.2-5.4 [facility] Comment on above: Performed By: #### L 100.0100 ####[facility] [address] [place], [address] RDW SD 42.4 fl Normal 35.1-43.9 [facility] Comment on above: Performed By: #### L 100.0100 ####[facility] [address] [place], [address] WBC (Bld) [#/Vol] 5.1 10*3/uL Normal 4.4-11.0 [facility] Comment on above: Performed By: #### L 100.0100 ####[facility] [address] [place], [address] CDIFF (PCR)on 04-15-2024 CDIFF A positive C. diffic ile molecular test does not differentiate between an active C. difficile infection and C. difficile colonization. Use clinical judgement and paired toxin/antigen testing to identify true infection and need for treatment. C diff DNA Spec Ql KERRY+probe Reference Range: Negative CepVusionid GeneXpert: polymerase chain reaction (PCR) 027 027 NAP1-B1 Presumptive Negative *for epidemiolologic???use C. Diff PCR A Positive-Toxigenic C. Difficile Detected A Normal [facility] Comment on above: Performed By: #### M 100.6796, M100.6795, M100.0605, M100.637 ####[facility] [address] [place], [address] Clostridium Diff Toxin/Agon 04-15-2024 CDIFF (EIA) Interpretation of C. diff by EIA Method C diff Stl Ql C diff Stl Ql Negative for toxigenic C. difficile, or below limit of detection. C. difficile Antigen Negative C. diff A/B Antigen C. difficile Toxin Negative C. diff Toxin Normal [facility] Comment on above: Performed By: #### M 100.6796, M100.6795, M100.0605, M100.637 ####[facility] [address] [place], [place], [address] ENTERIC PATHOGEN PANEL STOOL on 04-15-2024 EP PANEL Normal Reference Ran ge = Not Detected GI pathogens Pnl Stl KERRY+probe Nucleic acid amplification test method Not detected for Campylobacter group, Salmonella species, Shigella species, Vibrio Group, Yersinia enterocolitica, EHEC (Shiga Toxin 1, Shiga Toxin 2), Norovirus Gl/Gll, and Rotavirus A. Other common stool pathogens are not detected on this panel include: Aeromonas/Plesiomonas or parasites. Order testing for these organisms separately if suspected. This is an amplified DNA test which makes it both specific and sensitive. CAMPYLOBACTER Not Detected Norovirus Not Detected Rotavirus Not Detected Salmonella Not Detected Shiga Toxin Not Detected Shigella sp. Not Detected VIBRIO Not Detected Yersinia Not Detected Normal [facility] Comment on above: Performed By: #### M 100.6796, M100.6795, M100.0605, M100.637 ####[facility] [address] [place], [place], [address] Stool Lactoferrin/WBCon 04-05 WBCST Normal Reference Ran ge = Negative Fecal WBC Lactoferrin Negative: No Fecal WBC Lactoferrin present Normal [facility] Comment on above: Performed By: #### M 100.6796, M100.6795, M100.0605, M100.637 ####[facility] [address] [place], [place], [id number] Surgery Visit Reporton 04-15 Surgery Visit Report [facility] [address] [place], [place] [address] OFFICE VISIT Date of Service: 04/15/24 MR#: [id number] Acct: [id number] Name: ERLINDA ZAPATA Rep #: [id number] : 1970 Provider: Dr. Noel romero MD Age/Sex: 54/F Location: [facility] Status: Signed Intake Vital Signs 01/20/24 08:30 04/15/24 08:24 Height 5 ft 8 in 5 ft 8 in Weight: 216 lb BMI 32.8 BP 134/78 H Blood Pressure Location Rt brachial Position Sitting Respiration 18 Pulse 62 Pulse Source Monitor Pulse Oximetry (%) 99 Oxygen Delivery Method room air Intake Visit Reasons: BAD DIARRHEA, ABD PAIN Chief Complaint: bad diarrhea, abd pain Is patient in pain?: Yes Allergies ceftriaxone sodium (From Rocephin) Allergy (Verified 04/15/24 08:25) Rash oxycodone Adverse Reaction (Verified 04/15/24 08:25) Nausea/Vom/Diarrhea Medications ???Medication ???Instructions ???Recorded ???Confirmed ???Type levothyroxine 112 mcg tablet 125 mcg PO DAILY 06/25/13 04/15/24 History omeprazole 20 mg capsule,delayed 20 mg PO PRN Indigestion 11/27/17 04/15/24 History release ibuprofen 600 mg tablet 600 mg PO Q6H PRN PRN Mild-Mod 12/04/17 04/15/24 Rx Pain (1-5/10) #30 tabs liothyronine 5 mcg tablet 5 mcg PO DAILY 04/23/23 04/15/24 History folic acid 1 mg tablet 1 mg PO DAILY 10/15/23 04/15/24 History cyclobenzaprine 10 mg tablet 10 mg PO TID PRN Muscle Spasm #20 10/18/23 04/15/24 Rx TABLETS PFSH Medical History Wears dentures Wears glasses Depression Thyroid disease Back pain History of hiatal hernia History of diverticulitis Gastric reflux Former smoker Arthritis, rheumatoid Fibromyalgia Hypothyroidism Arthritis Surgical History Hx of tubal ligation Hx of bilateral breast reduction surgery Hx of hysterectomy Hx of colonoscopy History of tonsillectomy History of shoulder surgery History of neck surgery History of foot operation History of carpal tunnel release Social History Smoking Status: Former smoker alcohol intake: current alcohol intake frequency: holidays/special occasions only HPI HPI HPI: Patient is a 54-year-old female who is known to me for a history of complicated diverticulitis. I was first consulted on Ms. Zapata (previously Wilbert but patient has returned to her maiden name) as an inpatient April 2023 and her last clinic visit was 11/07/2023 to confirm resolution of a presumed diverticular flare. She presents today for what she describes as crampy left lower abdominal pain that has radiation into the back. She shares it is simply not easing up. She also shares that her appetite has been negatively affected by this pain as she feels with eating will make it worse. She has experienced some associated chills but no fever. Bowel habits are described as somewhat erratic with alternating constipation and diarrhea that started last week. She states that it sometimes feels as though she cannot even pass gas. Patient shares that on the whole the last 5 months have been good for her and she has been asymptomatic. She confesses that she only stuck with the recommendation for supplemental fiber about 3 weeks after our last visit. Below is recapitulated from patient's prior visit for ease review: Patient is a 53-year-old female who is known to me for a history of complicated diverticulitis. I was first consulted on Mrs. Atkins as an inpatient April 2023 and her last clinic visit was 10/15/2023 with an interim ER visit 10/18/2023. She shares that since that time she is much improved and denies any abdominal pain. Further she denies any bloody bowel movements. She shares that she completed the empiric antibiotics ordered by us and then quickly followed this with another antibiotic course for some dental work that she is still undergoing. She confirms that she has now completed all antibiotics. She is still continuing on a probiotic at this point. She confirms that she is drinking lots of water but has not used any fiber supplements. 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 ROS General General: No weight change, appetite, fatigue, colon cancer, breast cancer or weakness HEENT HEENT: No difficulty swallowing, eye injury, eye surgery, swollen glands or hoarseness Endo Endocrine: Yes thyroid disease; No diabetes mellitus, thyroid cancer, Hair loss, heat intolerance or cold intolerance Skin Skin: No rash or changing moles Musc Musculoskeletal: No back prob (more content not included)... Normal [facility] Absolute lymphocyte countOrd ered By: Sheyla Cruz on 11-14-2023 Lymphocytes Auto (Unsp spec) [#/Vol] 1.83 10*3/uL 0.83-4.51 [facility] Automated lymphocyte count a s percentage of total leukocytesOrdered By: Sheyla Cruz on 11-14-2023 Lymphocytes/100 WBC Auto (Unsp spec) 34.6 % 19-41 [facility] Basophil percentageOrdered B y: Sheyla Cruz on 11-14-2023 Basophils/100 WBC (Bld) 0.8 % 0-1 [facility] Bilirubin [Mass/Vol] 0.30 mg/dL 0.20-1.00 [facility] Comment on above: For patients on eltr ombopag therapy, use of Dimension [place] TBIL is not recommended. Chloride [Moles/Vol] 109 mmol/L 98-107 [facility] Eosinophils/100 WBC (Bld) 2.8 % 0-5 [facility] Glucose [Mass/Vol] 95 mg/dL 74-106 [facility] Hemoglobin (Bld) [Mass/Vol] 12.8 g/dL 12.0-15.0 [facility] Monocytes/100 WBC (Bld) 9.3 % 0-10 [facility] Neutrophils (Bld) [#/Vol] 2.8 10*3/uL 2.0-7.7 [facility] Neutrophils/100 WBC (Bld) 52.1 % 47-70 [facility] Potassium [Moles/Vol] 3.9 mmol/L 3.5-5.1 [facility] Protein [Mass/Vol] 7.0 g/dL 6.4-8.2 [facility] Sodium [Moles/Vol] 139 mmol/L 136-145 [facility] WBC (Bld) [#/Vol] 5.3 10*3/uL 4.4-11.0 [facility] Determination of erythrocyte mean corpuscular volume (MCV)Ordered By: Sheyla Cruz on 11-14-2023 MCV (RBC) [Entitic vol] 91.0 fL 81-99 [facility] Erythrocyte distribution wid th ratioOrdered By: [facility] Anthony on 11-14-2023 Erythrocyte distribution width (RBC) [Ratio] 13.2 % 11.6-14.6 [facility] Erythrocyte distribution wid th standard deviationOrdered By: [facility] Anthony on 11-14-2023 Erythrocyte distribution width (RBC) [Entitic vol] 44.1 fL 35.1-43.9 [facility] Hematocrit Auto (Bld) [Volum e fraction]Ordered By: [facility] Anthony on 11-14-2023 Hematocrit (Bld) [Volume fraction] 38.5 % 37-47 [facility] Immature granulocytes/100 WB C Auto (Bld)Ordered By: [facility] Anthony on 11-14-2023 Immature granulocytes/100 WBC (Bld) 0.400 % 0.0-0.9 [facility] Comment on above: IG% - Immature Granu locytes (promyelocytes, myelocytes and metamyelocytes) > 1% indicates that a LEFT SHIFT is Present. Laboratory - Chemistry and C hemistry - challengeOrdered By: [facility] Anthony on 11-14-2023 Albumin/Globulin [Mass ratio] 1.1 {ratio} 0.9-2.4 [facility] ALP [Catalytic activity/Vol] 75 U/L 45-117 [facility] ALT [Catalytic activity/Vol] 30 U/L 13-56 [facility] CO2 [Moles/Vol] 28.0 mmol/L 21.0-32.0 [facility] Globulin (S) [Mass/Vol] 3.3 g/dL 2.2-4.2 [facility] Urea nitrogen/Creatinine [Mass ratio] 16.1 mg/mg 10-20 [facility] Laboratory - Hematology and Cell countsOrdered By: Sheylagalina Cruz on 11-14-2023 MCH (RBC) [Entitic mass] 30.3 pg 27.0-32.0 [facility] MCHC (RBC) [Mass/Vol] 33.2 g/dL 32-36 [facility] Nucleated RBC/100 WBC (Bld) [Ratio] 0 % 0-5 [facility] Platelet mean volume (Bld) [Entitic vol] 10.6 fL 6.2-12.0 [facility] Platelets (Bld) [#/Vol] 298 10*3/uL 150-450 [facility] No Panel InformationOrdered By: Sheyla Cruz on 11-14-2023 Estimated GFR (MDRD) Amer 81 mL/min >60 [facility] Comment on above: GFR Calc Estimated GFR (MDRD) Non-Af Amer 67 mL/min >60 [facility] Comment on above: Non- GFR Calc RBC Auto (Bld) [#/Vol]Ordere d By: Sheyla Cruz on 11-14-2023 RBC (Bld) [#/Vol] 4.23 10*6/uL 4.2-5.4 [facility] Serum or plasma calcium allan urement (mass/volume)Ordered By: Sheyla Cruz on 11-14-2023 Calcium [Mass/Vol] 9.1 mg/dL 8.5-10.1 [facility] Serum or plasma creatinine m easurement (mass/volume)Ordered By: Sheyla Cruz on 11-14-2023 Creatinine [Mass/Vol] 0.93 mg/dL 0.55-1.02 [facility] Comment on above: The validity of the calculated GFR & GFRAA in patients over 70 years has not been determined. Clinical correlation is essential. Serum or plasma urea nitroge n measurement (mass/volume)Ordered By: Sheyla Cruz on 11-14-2023 Urea nitrogen [Mass/Vol] 15 mg/dL 7-18 [facility] Thin prep Papanicolaou smear with manual screeningOrdered By: Sheyla Cruz on 11-14-2023 Thin prep Papanicolaou smear with manual screening 3.7 g/dL 3.2-5.0 [facility] Thin prep Papanicolaou smear with manual screening 18 U/L 15-37 [facility] Thin prep Papanicolaou smear with manual screening 2 5-15 [facility] FT3on 10-24-2023 Free T3 [Mass/Vol] 2.29 pg/mL Low 2.30-4.00 [facility] ([place]) Comment on above: Performed By: #### C MP, FT4, FT3, TSH, VIDH, GFR #### [address] [address] FT4on 10-24-2023 Free T4 [Mass/Vol] 1.02 ng/dL Normal 0.76-1.46 [facility] ([place]) Comment on above: Performed By: #### C MP, FT4, FT3, TSH, VIDH, GFR #### [address] [address] TSHon 10-24-2023 TSH Qn 0.20 m[IU]/L Low 0.36-3.74 [facility] ([place]) Comment on above: Performed By: #### C MP, FT4, FT3, TSH, VIDH, GFR #### [address] [address] CNPNon 10-21-2023 CNPN Telephone (NIQ) ERLINDA ATKINS ([id number]) 1970 F Date Time Provider Department 10/21/23 INDIRA LAGOS NIQ During your visit today, we recorded the following information about you: Monica Patel 10/21/2023 4:50 PM Signed Emily the advocate at [facility] for Erlinda is calling. She is asking the PILE TRIMMER to Please call Erlinda after 3:30 with the results. Indira Lagos APRN.GUMARO 10/22/2023 4:23 PM Signed PITO with no spondylolisthesis, no instability. MRI images were previously reviewed with no neural compression. No role for surgery Recommend [facility]. Order placed. Call to pt. She has ongoing pain sx. Reviewed above. She will consider scheduled with [facility] in the future. Indira Lagos CNP Allergies As of Date: 10/21/2023 Noted Allergy Reaction OXYCODONE 12/04/2017 8 - GI Upset ROCEPHIN (CEFTRIAXONE SODIUM) 01/03/2006 4 - Hives Date Reviewed: 10/01/2023 Reviewed by: Radha Gorman LPN - Fully Assessed Reason for Visit: Call after 3:30 [Other] Prescriptions as of 10/22/2023 - liothyronine (CYTOMEL) 5 mcg tablet Take 1 tablet by mouth once daily. - Estradiol (ESTRACE) 0.5 mg tablet Take 1 tablet by mouth every afternoon. - XELJANZ XR 11 mg tablet, extended release - FOLIC ACID ORAL Take by mouth. - leucovorin (LEUCOVORIN) 15 mg tablet - levothyroxine (SYNTHROID) 112 mcg tablet Take 112 mcg by mouth once daily. - methotrexate sodium (TREXALL) 5 mg tablet Not sure dose: takes 5 tabs once a week - omeprazole(PRILOSEC 20 MG CAP) Take one(1) capsule daily. Problem List As Of Date 10/21/2023 Noted Resolved CARPAL TUNNEL SYNDROME [G56.00] 01/03/2006 03/13/2006 ULNAR NERVE LESION [G56.20] 01/03/2006 03/13/2006 Follow-up examination, following unspecified perez*02/20/2006 05/02/2018 Carpal tunnel syndrome [G56.00] 03/21/2006 05/02/2018 NONTOX UNINODULAR GOITER [E04.1] 05/17/2006 Rosacea [L71.9] 03/20/2007 05/02/2018 Other acne [L70.8] 03/20/2007 05/02/2018 TELANG///CAPILLARY DIS NEC/NOS [I78.9] 03/20/2007 05/02/2018 Flushing [R23.2] 03/20/2007 05/02/2018 Other chronic dermatitis due to solar radiation*03/20/2007 05/02/2018 SOLAR LENGINES///DYSCHROMIA OTHER [L81.9] 03/20/2007 05/02/2018 XEROSIS////SEBACEOUS GLAND DIS NEC [L73.8] 03/20/2007 05/02/2018 KERATODERMA, ACQUIRED [L85.1] 03/20/2007 Other seborrheic dermatitis [L21.8] 06/20/2007 05/02/2018 Unspecified pruritic disorder [L29.9] 06/20/2007 05/02/2018 Breast screening, unspecified [Z12.39] 06/23/2007 05/02/2018 LIPOMA OTHER SKIN AND SUBCUTANEOUS [D17.39] 06/23/2007 05/02/2018 Other malaise and fatigue [R53.81, R53.83] 11/11/2007 05/02/2018 Hypothyroidism [E03.9] 11/30/2008 DIARRHEA NOS [R19.7] 11/30/2008 Rheumatoid arthritis (HCC) [M06.9] Flatulence, eructation, and gas pain [R14.3, R1*03/17/2012 Acute gastritis without mention of hemorrhage [*03/17/2012 05/02/2018 Diaphragmatic hernia without mention of obstruc*03/17/2012 Ptosis of both eyelids [H02.403] 12/23/2017 Dermatochalasis of both upper eyelids [H02.831,*04/16/2018 Encounter Status:Closed by INDIRA LAGOS on 10/22/23 Normal [facility] Absolute lymphocyte countOrd ered By: Osei Lugo on 10-18-2023 Lymphocytes Auto (Unsp spec) [#/Vol] 0.51 10*3/uL 0.83-4.51 [facility] Automated lymphocyte count a s percentage of total leukocytesOrdered By: Osei Lugo on 10-18-2023 Lymphocytes/100 WBC Auto (Unsp spec) 6.6 % 19-41 [facility] Basophil percentageOrdered B y: Osei Lugo on 10-18-2023 Basophil percentage 0-5 SEEN /hpf 0-5 [facility] Basophils/100 WBC (Bld) 0.4 % 0-1 [facility] Eosinophils/100 WBC (Bld) 1.2 % 0-5 [facility] Hemoglobin (Bld) [Mass/Vol] 13.4 g/dL 12.0-15.0 [facility] Monocytes/100 WBC (Bld) 7.1 % 0-10 [facility] Neutrophils (Bld) [#/Vol] 6.5 10*3/uL 2.0-7.7 [facility] Neutrophils/100 WBC (Bld) 83.8 % 47-70 [facility] WBC (Bld) [#/Vol] 7.8 10*3/uL 4.4-11.0 [facility] Bilirubin [Mass/Vol] 0.60 mg/dL 0.20-1.00 [facility] Comment on above: For patients on eltr ombopag therapy, use of Dimension Bradley TBIL is not recommended. Chloride [Moles/Vol] 106 mmol/L 98-107 [facility] Glucose [Mass/Vol] 100 mg/dL 74-106 [facility] Comment on above: Fasting Glucose resu lt from 100 to 125 mg/dL suggests IMPAIRED HOMEOSTASIS per A.D.A. criteria. Potassium [Moles/Vol] 3.8 mmol/L 3.5-5.1 [facility] Protein [Mass/Vol] 7.1 g/dL 6.4-8.2 [facility] Sodium [Moles/Vol] 137 mmol/L 136-145 [facility] Bilirubin Test strip Ql (U)O rdered By: Osei Lugo on 10-18-2023 Bilirubin Ql (U) Negative Negative [facility] Determination of erythrocyte mean corpuscular volume (MCV)Ordered By: Osei Lugo on 10-18-2023 MCV (RBC) [Entitic vol] 89.1 fL 81-99 [facility] Erythrocyte distribution wid th ratioOrdered By: Osei Lugo on 10-18-2023 Erythrocyte distribution width (RBC) [Ratio] 12.6 % 11.6-14.6 [facility] Erythrocyte distribution wid th standard deviationOrdered By: Osei Lugo on 10-18-2023 Erythrocyte distribution width (RBC) [Entitic vol] 40.4 fL 35.1-43.9 [facility] Hematocrit Auto (Bld) [Volum e fraction]Ordered By: Osei Lugo on 10-18-2023 Hematocrit (Bld) [Volume fraction] 40.1 % 37-47 [facility] Immature granulocytes/100 WB C Auto (Bld)Ordered By: Osei Lugo on 10-18-2023 Immature granulocytes/100 WBC (Bld) 0.900 % 0.0-0.9 [facility] Comment on above: IG% - Immature Granu locytes (promyelocytes, myelocytes and metamyelocytes) > 1% indicates that a LEFT SHIFT is Present. Ketones Test strip Ql (U)Ord ered By: Osei Lugo on 10-18-2023 Ketones Ql (U) Negative Negative [facility] Laboratory - Chemistry and C hemistry - challengeOrdered By: Osei Lugo on 10-18-2023 Albumin/Globulin [Mass ratio] 1.0 {ratio} 0.9-2.4 [facility] ALP [Catalytic activity/Vol] 59 U/L 45-117 [facility] ALT [Catalytic activity/Vol] 25 U/L 13-56 [facility] CO2 [Moles/Vol] 24.0 mmol/L 21.0-32.0 [facility] Globulin (S) [Mass/Vol] 3.5 g/dL 2.2-4.2 [facility] Urea nitrogen/Creatinine [Mass ratio] 17.3 mg/mg 10-20 [facility] Laboratory - Hematology and Cell countsOrdered By: Osei Lugo on 10-18-2023 MCH (RBC) [Entitic mass] 29.8 pg 27.0-32.0 [facility] MCHC (RBC) [Mass/Vol] 33.4 g/dL 32-36 [facility] Nucleated RBC/100 WBC (Bld) [Ratio] 0 % 0-5 [facility] Platelet mean volume (Bld) [Entitic vol] 10.2 fL 6.2-12.0 [facility] Platelets (Bld) [#/Vol] 282 10*3/uL 150-450 [facility] Mucus LM Ql (Urine sed)Order ed By: Osei Lugo on 10-18-2023 Mucus Ql (Urine sed) 1+ /hpf [facility] Nitrite Test strip Ql (U)Ord ered By: Osei Lugo on 10-18-2023 Nitrite Ql (U) Negative Negative [facility] No Panel InformationOrdered By: Osei Lugo on 10-18-2023 Urine RBC 0-5 SEEN /hpf 0-5 [facility] Estimated Creatinine Clearance Calc 104.24 ml/min [facility] Estimated GFR (MDRD) Amer 103 mL/min >60 [facility] Comment on above: GFR Calc Estimated GFR (MDRD) Non-Af Amer 85 mL/min >60 [facility] Comment on above: Non- GFR Calc Protein Test strip Ql (U)Ord ered By: Osei Lugo on 10-18-2023 Protein Ql (U) Negative Negative [facility] RBC Auto (Bld) [#/Vol]Ordere d By: Osei Lugo on 10-18-2023 RBC (Bld) [#/Vol] 4.50 10*6/uL 4.2-5.4 [facility] Serum or plasma calcium allan urement (mass/volume)Ordered By: Osei Lugo on 10-18-2023 Calcium [Mass/Vol] 9.4 mg/dL 8.5-10.1 [facility] Serum or plasma creatinine m easurement (mass/volume)Ordered By: Osei Lugo on 10-18-2023 Creatinine [Mass/Vol] 0.75 mg/dL 0.55-1.02 [facility] Comment on above: The validity of the calculated GFR & GFRAA in patients over 70 years has not been determined. Clinical correlation is essential. Serum or plasma urea nitroge n measurement (mass/volume)Ordered By: Osei Lugo on 10-18-2023 Urea nitrogen [Mass/Vol] 13 mg/dL 7-18 [facility] Squamous epithelial cells de tection in urine sediment by light microscopyOrdered By: Osei Lugo on 10-18-2023 Epithelial cells.squamous LM Ql (Urine sed) 5-10 SEEN /hpf 5-10 [facility] Thin prep Papanicolaou smear with manual screeningOrdered By: Osei Lugo on 10-18-2023 Thin prep Papanicolaou smear with manual screening 3.6 g/dL 3.2-5.0 [facility] Thin prep Papanicolaou smear with manual screening 19 U/L 15-37 [facility] Thin prep Papanicolaou smear with manual screening 7 - [facility] Urine blood detectionOrdered By: Osei Lugo on 10-18-2023 RBC Ql (U) Negative Negative [facility] Urine clarityOrdered By: Robbie Lugo on 10-18-2023 Clarity (U) Sl. Cloudy Clear [facility] Urine color determinationOrd ered By: Osei Lugo on 10-18-2023 Color (U) Yellow Yellow [facility] Urine glucose detectionOrder ed By: Osei Lugo on 10-18-2023 Glucose Ql (U) Normal mg/dl Normal [facility] Urine leukocyte esterase det ection by dipstickOrdered By: Osei Lugo on 10-18-2023 Leukocyte esterase Test strip Ql (U) 25 /ul Negative [facility] Urine pHOrdered By: Osei thomas on 10-18-2023 pH (U) 8.0 [pH] 5.0 - 8.0 [facility] Urine sediment bacteria coun t by microscopy (number/high power field)Ordered By: Osei Lugo on 10-18-2023 Bacteria LM.HPF (Urine sed) [#/Area] RARE /hpf None Seen [facility] Urine specific gravity measu rementOrdered By: Osei Lugo on 10-18-2023 Specific gravity (U) [Rel density] 1.015 1.002-1.030 [facility] Urine urobilinogen measureme ntOrdered By: Osei Lugo on 10-18-2023 Urobilinogen Ql (U) Normal mg/dl Normal [facility] Absolute lymphocyte countOrd ered By: Noel Roberts on 10-15-2023 Lymphocytes Auto (Unsp spec) [#/Vol] 1.90 10*3/uL 0.83-4.51 [facility] Automated lymphocyte count a s percentage of total leukocytesOrdered By: Noel Roberts on 10-15-2023 Lymphocytes/100 WBC Auto (Unsp spec) 27.0 % 19-41 [facility] Basophil percentageOrdered B y: Noel Roberts on 10-15-2023 Basophils/100 WBC (Bld) 1.0 % 0-1 [facility] Eosinophils/100 WBC (Bld) 5.0 % 0-5 [facility] Hemoglobin (Bld) [Mass/Vol] 12.4 g/dL 12.0-15.0 [facility] Monocytes/100 WBC (Bld) 8.5 % 0-10 [facility] Neutrophils (Bld) [#/Vol] 4.1 10*3/uL 2.0-7.7 [facility] Neutrophils/100 WBC (Bld) 58.1 % 47-70 [facility] WBC (Bld) [#/Vol] 7.1 10*3/uL 4.4-11.0 [facility] Determination of erythrocyte mean corpuscular volume (MCV)Ordered By: Noel Roberts on 10-15-2023 MCV (RBC) [Entitic vol] 89.8 fL 81-99 [facility] Erythrocyte distribution wid th ratioOrdered By: Noel Roberts on 10-15-2023 Erythrocyte distribution width (RBC) [Ratio] 12.5 % 11.6-14.6 [facility] Erythrocyte distribution wid th standard deviationOrdered By: Noel Roberts on 10-15-2023 Erythrocyte distribution width (RBC) [Entitic vol] 40.8 fL 35.1-43.9 [facility] Hematocrit Auto (Bld) [Volum e fraction]Ordered By: Noel Roberts on 10-15-2023 Hematocrit (Bld) [Volume fraction] 37.7 % 37-47 [facility] Immature granulocytes/100 WB C Auto (Bld)Ordered By: Noel Roberts on 10-15-2023 Immature granulocytes/100 WBC (Bld) 0.400 % 0.0-0.9 [facility] Comment on above: IG% - Immature Granu locytes (promyelocytes, myelocytes and metamyelocytes) > 1% indicates that a LEFT SHIFT is Present. Laboratory - Hematology and Cell countsOrdered By: Noel Roberts on 10-15-2023 MCH (RBC) [Entitic mass] 29.5 pg 27.0-32.0 [facility] MCHC (RBC) [Mass/Vol] 32.9 g/dL 32-36 [facility] Nucleated RBC/100 WBC (Bld) [Ratio] 0 % 0-5 [facility] Platelet mean volume (Bld) [Entitic vol] 10.3 fL 6.2-12.0 [facility] Platelets (Bld) [#/Vol] 320 10*3/uL 150-450 [facility] RBC Auto (Bld) [#/Vol]Ordere d By: Noel Roberts on 10-15-2023 RBC (Bld) [#/Vol] 4.20 10*6/uL 4.2-5.4 [facility] XR LUMBAR 4V AP/LAT/ FLEX/EX Ton 10-02-2023 XR LUMBAR 4V AP/LAT/ FLEX/EXT * * *Final Report* * * DATE OF EXAM: Oct 02 2023 11:52AM [id number] - XR LUMBAR 4V AP/LAT/ FLEX/EXT / PROCEDURE REASON: multiple diagnoses * * * * Physician Interpretation * * * * Examination: XR LUMBAR 4V AP/LAT/ FLEX/EXT History: Chronic right-sided low back pain with right-sided sciatica Chronic right-sided low back pain with right-sided sciatica Technique: XR LUMBAR 4V AP/LAT/ FLEX/EXT Comparison: None RESULT: 5 nonrib-bearing lumbar-type vertebrae. For numbering purposes, L4-5 is at the level of the iliac crest. Mild L4-5 and L5-S1 disc space narrowing. Mild degenerative change involving the posterior elements from L3 through S1. Mild spondylosis and osteophytosis throughout the lumbar region. Normal lordosis. Normal alignment. No evidence of significant dynamic instability in flexion or extension. No focal bony abnormality or fracture. IMPRESSION: DEGENERATIVE CHANGES DESCRIBED Campus Director: PSCB Transcribe Date/Time: Oct 02 2023 1:46P Dictated by : KYLEE FINCH MD This examination was interpreted and the report reviewed and electronically signed by: KYLEE FINCH MD on Oct 02 2023 1:48PM EST [id number] Normal [facility] XR Lumbar spine Views W flex ion and W extensionon 10-02-2023 [facility] CNOVon 10-01-2023 CNOV Office Visit (SPNSMN ) ERLINDA ATKINS ([id number]) 1970 F Date Time Provider Department 10/01/23 1:40 PM INDIRA LAGOS SPNSMN During your visit today, we recorded the following information about you: Pulse Blood pressure Weight Height 77/minute 139/80 94.7 kg 1.74 m Indira Lagos APRN.[employer] 10/01/2023 2:39 PM Signed SPINE SURGERY NEW PATIENT This is an in person visit DATE OF SERVICE: October 01, 2023 This is an in-person visit. REFERRING PROVIDER: SELF SUBJECTIVE HISTORY OF PRESENT ILLNESS: Erlinda Atkins is a 53 year old female presenting alone. CHIEF COMPLAINT: back pain DURATION OF SYMPTOMS: > 10 years Chronic back pain, RLE pain, RLE numbness Reports surgery was recommended by the provider was out of network Limited benefit with PT, aqua therapy PAIN EVALUATION 10/01/2023 1230 Pain Level: 10 Pain Location: Back-Lower Pain starts in R lower pback and raidiates down leg Description: Aching;Dull;Sharp;Burni ng;Tingling;Numbness Duration Amount of Time: 10 Duration Units: Years Frequency: Continuous Pain Radiation: right sided low back, right lateral hip, right lateral thigh - no pain below the knee - no left sided pain Aggravating Factors: Standing, Walking Pain Ratio: Pain in the back is greater than in the leg Subjective weakness: Yes - RLE Numbness/tingling: Yes -right lateral thigh; negative BUE Imbalance: Yes Falls: Yes - tripped over hole in the pavement Fine motor impairment: Yes - can drop things chronically, hands cramp when I write Hx of hypothyroid Hx of fibromyalgia Hx RA Employment status: works at [employer], physical job PREVIOUS CONSERVATIVE TREATMENTS: Physical therapy: Fall 2022 Injections - 06/2023 right multilevel lower lumbosacral TFESI with one week of benefit - previously injections in years past NSAIDs: Aleve; Advil Tylenol ACTIVE PROBLEM LIST Nontoxic Uninodular Goiter Acquired Keratoderma Hypothyroidism Diarrhea Rheumatoid Arthritis (Hcc) Flatulence, Eructation, and Gas Pain Diaphragmatic Hernia Without Mention of Obstruction Or Gangrene Ptosis of Both Eyelids Dermatochalasis of Both Upper Eyelids PAST MEDICAL HISTORY Diagnosis Date Acute gastritis [...] BREAST 2005 Breast reduction TONSILLECTOMY PRIMARY/SECONDARY Tonsillectomy Social History Tobacco Use Smoking status: Never Smokeless tobacco: Never Substance Use Topics Alcohol use: No Drug use: No ALLERGIES Allergen Reactions Oxycodone GI Upset Rocephin [Ceftriaxo* Hives MEDICATIONS: liothyronine (CYTOMEL) 5 mcg tablet Take 1 tablet by mouth once daily. Estradiol (ESTRACE) 0.5 mg tablet Take 1 tablet by mouth every afternoon. FOLIC ACID ORAL Take by mouth. leucovorin (LEUCOVORIN) 15 mg tablet levothyroxine (SYNTHROID) 112 mcg tablet Take 112 mcg by mouth once daily. methotrexate sodium (TREXALL) 5 mg tablet Not sure dose: takes 5 tabs once a week omeprazole(PRILOSEC 20 MG CAP) Take one(1) capsule daily. XELJANZ XR 11 mg tablet, extended release OBJECTIVE: PHYSICAL EXAM BP 139/80 Pulse 77 Ht 174 cm (5' 8.5) Wt 94.7 kg (208 lb 12.4 oz) LMP 08/12/2016 SpO2 96% BMI 31.28 kg/m? GENERAL APPEARANCE: Well nourished, well developed, and no apparent distress. NEURO PSYCH: Patient oriented to person, place, and time. Mood pleasant. Benign affect. MOTOR: 5/5 in all muscle groups. GAIT: Normal. Heel walk, toe walk, duck walk and jump with good strength. REFLEXES: Biceps Right: 1+, Left: 1+., Brachioradialis Right: 1+, Left: 1+., Knee jerk Right: 2+, Left: 2+. LONG TRACT SIGNS: No clonus. No Hoffmans. DATA REVIEW [facility] records independently reviewed Images independently reviewed with the patient ASSESSMENT/PLAN M54.41, G89.29 Chronic right-sided low back pain with right-sided sciatica (primary encounter diagnosis) Erlinda Atkins is a 53 year old female with CC of chronic right sided low back > right L5 pain/numbness. MRI lumbar spine with facet arthropathy without neural compression Erlinda Atkins is not a candidate for surgery at this time. Based on M (more content not included)... Normal [facility] Absolute lymphocyte countOrd ered By: Sheyla Cruz on 08-22-2023 Lymphocytes Auto (Unsp spec) [#/Vol] 2.07 10*3/uL 0.83-4.51 [facility] Automated lymphocyte count a s percentage of total leukocytesOrdered By: Sheyla Cruz on 08-22-2023 Lymphocytes/100 WBC Auto (Unsp spec) 36.8 % 19-41 [facility] Basophil percentageOrdered B y: Sheyla Cruz on 08-22-2023 Basophils/100 WBC (Bld) 0.9 % 0-1 [facility] Bilirubin [Mass/Vol] 0.60 mg/dL 0.20-1.00 [facility] Comment on above: For patients on eltr ombopag therapy, use of Dimension Bradley TBIL is not recommended. Chloride [Moles/Vol] 108 mmol/L 98-107 [facility] Eosinophils/100 WBC (Bld) 3.7 % 0-5 [facility] Glucose [Mass/Vol] 96 mg/dL 74-106 [facility] Hemoglobin (Bld) [Mass/Vol] 13.3 g/dL 12.0-15.0 [facility] Monocytes/100 WBC (Bld) 9.6 % 0-10 [facility] Neutrophils (Bld) [#/Vol] 2.8 10*3/uL 2.0-7.7 [facility] Neutrophils/100 WBC (Bld) 48.8 % 47-70 [facility] Potassium [Moles/Vol] 3.8 mmol/L 3.5-5.1 [facility] Protein [Mass/Vol] 7.2 g/dL 6.4-8.2 [facility] Sodium [Moles/Vol] 141 mmol/L 136-145 [facility] WBC (Bld) [#/Vol] 5.6 10*3/uL 4.4-11.0 [facility] Determination of erythrocyte mean corpuscular volume (MCV)Ordered By: Sheyla Cruz on 08-22-2023 MCV (RBC) [Entitic vol] 89.9 fL 81-99 [facility] Erythrocyte distribution wid th ratioOrdered By: Sheyla Cruz on 08-22-2023 Erythrocyte distribution width (RBC) [Ratio] 13.3 % 11.6-14.6 [facility] Erythrocyte distribution wid th standard deviationOrdered By: Sheyla Cruz on 08-22-2023 Erythrocyte distribution width (RBC) [Entitic vol] 43.6 fL 35.1-43.9 [facility] Hematocrit Auto (Bld) [Volum e fraction]Ordered By: Sheyla Cruz on 08-22-2023 Hematocrit (Bld) [Volume fraction] 40.0 % 37-47 [facility] Immature granulocytes/100 WB C Auto (Bld)Ordered By: [facility] Anthony on 08-22-2023 Immature granulocytes/100 WBC (Bld) 0.200 % 0.0-0.9 [facility] Comment on above: IG% - Immature Granu locytes (promyelocytes, myelocytes and metamyelocytes) > 1% indicates that a LEFT SHIFT is Present. Laboratory - Chemistry and C hemistry - challengeOrdered By: Sheyla Cruz on 08-22-2023 Albumin/Globulin [Mass ratio] 1.1 {ratio} 0.9-2.4 [facility] ALP [Catalytic activity/Vol] 58 U/L 45-117 [facility] ALT [Catalytic activity/Vol] 39 U/L 13-56 [facility] CO2 [Moles/Vol] 28.0 mmol/L 21.0-32.0 [facility] Globulin (S) [Mass/Vol] 3.4 g/dL 2.2-4.2 [facility] Urea nitrogen/Creatinine [Mass ratio] 27.1 mg/mg 10-20 [facility] Laboratory - Hematology and Cell countsOrdered By: Sheyla Cruz on 08-22-2023 MCH (RBC) [Entitic mass] 29.9 pg 27.0-32.0 [facility] MCHC (RBC) [Mass/Vol] 33.3 g/dL 32-[facility] Nucle[facility] RBC/100 WBC (Bld) [Ratio] 0 % 0-5 [facility] Platelets (Bld) [#/Vol] 347 10*3/uL 150-450 [facility] No Panel InformationOrdered By: Sheyla Cruz on 08-22-2023 Estimated GFR (MDRD) Amer 106 mL/min >60 [facility] Comment on above: GFR Calc Estimated GFR (MDRD) Non-Af Amer 87 mL/min >60 [facility] Comment on above: Non- GFR Calc Platelet mean volume Alberto-Ec ker (Bld) [Entitic vol]Ordered By: Sheyla Cruz on 08-22-2023 Platelet mean volume (Bld) [Entitic vol] 10.4 fL 6.2-12.0 [facility] RBC Auto (Bld) [#/Vol]Ordere d By: Sheyla Cruz on 08-22-2023 RBC (Bld) [#/Vol] 4.45 10*6/uL 4.2-5.4 [facility] Serum or plasma calcium allan urement (mass/volume)Ordered By: Sheyla Cruz on 08-22-2023 Calcium [Mass/Vol] 9.6 mg/dL 8.5-10.1 [facility] Serum or plasma creatinine m easurement (mass/volume)Ordered By: Sheyla Cruz on 08-22-2023 Creatinine [Mass/Vol] 0.74 mg/dL 0.55-1.02 [facility] Comment on above: The validity of the calculated GFR & GFRAA in patients over 70 years has not been determined. Clinical correlation is essential. Serum or plasma urea nitroge n measurement (mass/volume)Ordered By: Sheyla Cruz on 08-22-2023 Urea nitrogen [Mass/Vol] 20 mg/dL 7-18 [facility] Thin prep Papanicolaou smear with manual screeningOrdered By: Sheyla Cruz on 08-22-2023 Thin prep Papanicolaou smear with manual screening 3.8 g/dL 3.2-5.0 [facility] Thin prep Papanicolaou smear with manual screening 20 U/L 15-37 [facility] Thin prep Papanicolaou smear with manual screening 5 5-15 [facility] E2on 08-07-2023 Estradiol Level <11.80 Normal [facility] ([place]) Comment on above: Result Comment: No te - New Reference Range in effect 20 Adult Female E2 Reference Ranges: Follicular phase 19.5 - 144.2 pg/mL Midcycle 63.9 - 356.7 pg/mL Luteal phase 55.8 - 214.2 pg/mL Post menopausal 0 - 33.2 pg/mL Performed By: #### C MP, FT4, FT3, TSH, VIDH, GFR #### [address] [address] FSHon 08-07-2023 FSH 65.6 mIU/mL Normal [facility] ([place]) Comment on above: Result Comment: Adul t Female FSH Reference Ranges (06/28/99): Follicular phase 2.5 - 10.2 mIU/mL Midcycle phase 3.4 - 33.4 mIU/mL Luteal phase 1.5 - 9.1 mIU/mL Post menopausal 23.0 -116.3 mIU/mL Adult Male: 1.4 - 18.1 mIU/mL Performed By: #### C MP, FT4, FT3, TSH, VIDH, GFR #### [address] [address] LABORATORYOrdered By: SYSTEM SYSTEM on 08-07-2023 E2 [Mass/Vol] pg/mL Invalid Interpretation Code ADM Comment on above: Interpretive Data: * *Note - New Reference Range in effect 20 Adult Female E2 Reference Ranges: Follicular phase 19.5 - 144.2 pg/mL Midcycle 63.9 - 356.7 pg/mL Luteal phase 55.8 - 214.2 pg/mL Post menopausal 0 - 33.2 pg/mL Follitropin Qn 65.6 m[IU]/mL Invalid Interpretation Code ADM SS Comment on above: Interpretive Data: A dult Female FSH Reference Ranges (06/28/99): Follicular phase 2.5 - 10.2 mIU/mL Midcycle phase 3.4 - 33.4 mIU/mL Luteal phase 1.5 - 9.1 mIU/mL Post menopausal 23.0 -116.3 mIU/mL Adult Male: 1.4 - 18.1 mIU/mL Lutropin Qn 38.0 m[IU]/mL Invalid Interpretation Code ADM SS Comment on above: Interpretive Data: * *Note - New Reference Range in effect 20Adult Female LH Reference Ranges: Follicular phase 1.9 - 12.5 mIU/mL Midcycle phase 8.7 - 76.3 mIU/mL Luteal phase 0.5 - 16.9 mIU/mL Post menopausal 5.0 - 55.2 mIU/mL LHon 08-07-2023 LH 38.0 mIU/mL Normal [facility] ([place] Comment on above: Result Comment: No te - New Reference Range in effect 20Adult Female LH Reference Ranges: Follicular phase 1.9 - 12.5 mIU/mL Midcycle phase 8.7 - 76.3 mIU/mL Luteal phase 0.5 - 16.9 mIU/mL Post menopausal 5.0 - 55.2 mIU/mL Performed By: #### C MP, FT4, FT3, TSH, VIDH, GFR #### [address] [address] .GFRon 07-03-2023 GFR 95 ml/min/1.73sqm Normal [facility] ([place] Comment on above: Result Comment: GFR Population mean for , Non- Americans Ages 20-29 = 116 mL/min/1.73 sq.m. Ages 30-39 = 107 mL/min/1.73 sq.m. Ages 40-49 = 99 mL/min/1.73 sq.m. Ages 50-59 = 93 mL/min/1.73 sq.m. Ages 60-69 = 85 mL/min/1.73 sq.m. Ages 70+ = 75 mL/min/1.73 sq.m. Chronic Kidney Disease: Less than 60 mL/min/1.73 square meters End Stage Renal Disease: Less than 15 mL/min/1.73 square meters Performed By: #### C MP, FT4, FT3, TSH, VIDH, GFR #### [address] [address] GFR Non- 78 ml/min/1.73sqm Normal [facility] ([place] Comment on above: Result Comment: GFR Population mean for , Non- Americans Ages 20-29 = 116 mL/min/1.73 sq.m. Ages 30-39 = 107 mL/min/1.73 sq.m. Ages 40-49 = 99 mL/min/1.73 sq.m. Ages 50-59 = 93 mL/min/1.73 sq.m. Ages 60-69 = 85 mL/min/1.73 sq.m. Ages 70+ = 75 mL/min/1.73 sq.m. Chronic Kidney Disease: Less than 60 mL/min/1.73 square meters End Stage Renal Disease: Less than 15 mL/min/1.73 square meters Performed By: #### C MP, FT4, FT3, TSH, VIDH, GFR #### [address] [address] CMPon 07-03-2023 Albumin Level 3.6 G/dL Normal 3.5-5.0 [facility] ([place] Comment on above: Performed By: #### C MP, FT4, FT3, TSH, VIDH, GFR #### [address] [address] Albumin/Globulin [Mass ratio] 1.1 {ratio} Normal 1.1-2.5 [facility] ([place] Comment on above: Performed By: #### C MP, FT4, FT3, TSH, VIDH, GFR #### [address] [address] ALP [Catalytic activity/Vol] 68 U/L Normal 40-135 [facility] ([place] Comment on above: Performed By: #### C MP, FT4, FT3, TSH, VIDH, GFR #### [address] [address] ALT [Catalytic activity/Vol] 32 U/L Normal 14-59 [facility] ([place] Comment on above: Performed By: #### C MP, FT4, FT3, TSH, VIDH, GFR #### [address] [address] AST [Catalytic activity/Vol] 13 U/L Normal 10-40 [facility] ([place] Comment on above: Performed By: #### C MP, FT4, FT3, TSH, VIDH, GFR #### [address] [address] Bili Total 0.3 mg/dL Normal 0.2-1.0 [facility] ([place] Comment on above: Result Comment: Use of this assay is not recommended for patients undergoing treatment with eltrombopag due to the potential for falsely elevated results. Performed By: #### C MP, FT4, FT3, TSH, VIDH, GFR #### [address] [address] BUN/Creatinine Ratio 27 ratio Normal 7-27 [facility] ([place] Comment on above: Performed By: #### C MP, FT4, FT3, TSH, VIDH, GFR #### [address] [address] Calcium [Mass/Vol] 9.3 mg/dL Normal 8.4-10.2 [facility] ([place] Comment on above: Performed By: #### C MP, FT4, FT3, TSH, VIDH, GFR #### [address] [address] Chloride [Moles/Vol] 102 mmol/L Normal 98-107 [facility] ([place] Comment on above: Performed By: #### C MP, FT4, FT3, TSH, VIDH, GFR #### [address] [address] CO2 [Moles/Vol] 29 mmol/L Normal 22-29 [facility] ([place] Comment on above: Performed By: #### C MP, FT4, FT3, TSH, VIDH, GFR #### [address] [address] Creatinine [Mass/Vol] 0.77 mg/dL Normal 0.55-1.02 [facility] [place] Comment on above: Performed By: #### C MP, FT4, FT3, TSH, VIDH, GFR #### [address] [address] Electrolyte Balance 8.0 mEq/L Normal 4.0-15.0 [facility] ([place] Comment on above: Performed By: #### C MP, FT4, FT3, TSH, VIDH, GFR #### [address] [address] Globulin 3.4 G/dL Normal [facility] ([place] Comment on above: Performed By: #### C MP, FT4, FT3, TSH, VIDH, GFR #### [address] [address] Glucose [Mass/Vol] 116 mg/dL High 70-105 [facility] ([place] Comment on above: Performed By: #### C MP, FT4, FT3, TSH, VIDH, GFR #### [address] [address] Potassium [Moles/Vol] 4.4 mmol/L Normal 3.5-5.1 [facility] [place] Comment on above: Performed By: #### C MP, FT4, FT3, TSH, VIDH, GFR #### [address] [address] Sodium [Moles/Vol] 139 mmol/L Normal 136-145 [facility] ([place] Comment on above: Performed By: #### C MP, FT4, FT3, TSH, VIDH, GFR #### [address] [address] Total Protein 7.0 G/dL Normal 6.4-8.2 [facility] ([place] Comment on above: Performed By: #### C MP, FT4, FT3, TSH, VIDH, GFR #### [address] [address] Urea nitrogen [Mass/Vol] 21 mg/dL High 7-18 [facility] ([place] Comment on above: Performed By: #### C MP, FT4, FT3, TSH, VIDH, GFR #### [address] [address] FT3on 07-03-2023 Free T3 [Mass/Vol] 2.87 pg/mL Normal 2.30-4.00 [facility] ([place] Comment on above: Performed By: #### C MP, FT4, FT3, TSH, VIDH, GFR #### [address] [address] FT4on 07-03-2023 Free T4 [Mass/Vol] 1.08 ng/dL Normal 0.76-1.46 [facility] ([place] Comment on above: Performed By: #### C MP, FT4, FT3, TSH, VIDH, GFR #### [address] [address] LABORATORYOrdered By: SYSTEM SYSTEM on 07-03-2023 25-hydroxyvitamin D3 [Mass/Vol] 69.3 ng/mL Invalid Interpretation Code AO ADM SS Comment on above: Interpretive Data: I nterpretive Values Based on Total 25(OH) Vitamin D: Deficient <20 ng/mL Insufficient 20 - <30 ng/mL Sufficient 30-100 ng/mL Albumin BCP dye [Mass/Vol] 3.6 G/dL Normal 3.5 - 5.0 G/dL AO ADM SS Albumin/Globulin [Mass ratio] 1.1 {ratio} Normal 1.1 - 2.5 ratio AO ADM SS ALP [Catalytic activity/Vol] 68 U/L Normal 40 - 135 U/L AO ADM SS ALT With P-5'-P [Catalytic activity/Vol] 32 U/L Normal 14 - 59 U/L AO ADM SS AST With P-5'-P [Catalytic activity/Vol] 13 U/L Normal 10 - 40 U/L AO ADM SS Bilirubin [Mass/Vol] 0.3 mg/dL Normal 0.2 - 1 .0 mg/dL AO ADM SS Comment on above: Interpretive Data: U se of this assay is not recommended for patients undergoing treatment with eltrombopag due to the potential for falsely elevated results. Calcium [Mass/Vol] 9.3 mg/dL Normal 8.4 - 10. 2 mg/dL AO ADM SS Chloride [Moles/Vol] 102 mmol/L Normal 98 - 10 7 mmol/L AO ADM SS CO2 [Moles/Vol] 29 mmol/L Normal 22 - 29 mmol/L AO ADM SS Creatinine [Mass/Vol] 0.77 mg/dL Normal 0.55 - 1.02 mg/dL AO ADM SS Electrolyte Balance 8.0 mEq/L Normal 4.0 - 15 .0 mEq/L AO ADM SS Free T3 [Mass/Vol] 2.87 pg/mL Normal 2.30 - 4. 00 pg/mL AO ADM SS Free T4 [Mass/Vol] 1.08 ng/dL Normal 0.76 - 1. 46 ng/dL AO ADM SS GFR/1.73 sq M.predicted among blacks MDRD (S/P/Bld) [Vol rate/Area] 95 ml/min/1.73sqm Invalid Interpretation Code AO Chemistry S Comment on above: Interpretive Data: GFR Population mean for , Non- Americans Ages 20-29 = 116 mL/min/1.73 sq.m. Ages 30-39 = 107 mL/min/1.73 sq.m. Ages 40-49 = 99 mL/min/1.73 sq.m. Ages 50-59 = 93 mL/min/1.73 sq.m. Ages 60-69 = 85 mL/min/1.73 sq.m. Ages 70+ = 75 mL/min/1.73 sq.m. Chronic Kidney Disease: Less than 60 mL/min/1.73 square meters End Stage Renal Disease: Less than 15 mL/min/1.73 square meters GFR/1.73 sq M.predicted among non-blacks MDRD (S/P/Bld) [Vol rate/Area] 78 ml/min/1.73sqm Invalid Interpretation Code AO Chemistry S Comment on above: Interpretive Data: GFR Population mean for , Non- Americans Ages 20-29 = 116 mL/min/1.73 sq.m. Ages 30-39 = 107 mL/min/1.73 sq.m. Ages 40-49 = 99 mL/min/1.73 sq.m. Ages 50-59 = 93 mL/min/1.73 sq.m. Ages 60-69 = 85 mL/min/1.73 sq.m. Ages 70+ = 75 mL/min/1.73 sq.m. Chronic Kidney Disease: Less than 60 mL/min/1.73 square meters End Stage Renal Disease: Less than 15 mL/min/1.73 square meters Globulin 3.4 G/dL Invalid Interpretation Code AO ADM SS Glucose [Mass/Vol] 116 mg/dL High 70 - 105 mg/dL AO ADM SS Potassium [Moles/Vol] 4.4 mmol/L Normal 3.5 - 5.1 mmol/L AO ADM SS Protein [Mass/Vol] 7.0 G/dL Normal 6.4 - 8.2 G/dL AO ADM SS Sodium [Moles/Vol] 139 mmol/L Normal 136 - 145 mmol/L AO ADM SS TSH Qn 0.01 m[IU]/L Low 0.36 - 3.74 mcIU/mL AO ADM SS Urea nitrogen [Mass/Vol] 21 mg/dL High 7 - 18 mg/dL AO ADM SS Urea nitrogen/Creatinine [Mass ratio] 27 ratio Normal 7 - 27 ratio AO ADM SS TSHon 07-03-2023 TSH Qn 0.01 m[IU]/L Low 0.36-3.74 [facility] ([place] Comment on above: Performed By: #### C MP, FT4, FT3, TSH, VIDH, GFR #### [place] [id number] VIDHon 07-03-2023 Vit. D 25-Hydroxy 69.3 ng/mL Normal [facility] ([place] Comment on above: Result Comment: Inte rpretive Values Based on Total 25(OH) Vitamin D: Deficient <20 ng/mL Insufficient 20 - <30 ng/mL Sufficient 30-100 ng/mL Performed By: #### C MP, FT4, FT3, TSH, VIDH, GFR #### [place] [id number] Absolute lymphocyte countOrd ered By: Sheyla Cruz on 06-05-2023 Lymphocytes Auto (Unsp spec) [#/Vol] 1.84 10*3/uL 0.83-4.51 [facility] Basophil percentageOrdered B y: Sheyla Cruz on 06-05-2023 Basophils/100 WBC (Bld) 1.1 % 0-1 [facility] Bilirubin [Mass/Vol] 0.40 mg/dL 0.20-1.00 [facility] Comment on above: For patients on eltr ombopag therapy, use of Dimension Bradley TBIL is not recommended. Chloride [Moles/Vol] 106 mmol/L 98-107 [facility] Eosinophils/100 WBC (Bld) 5.3 % 0-5 [facility] Glucose [Mass/Vol] 95 mg/dL 74-106 [facility] Neutrophils (Bld) [#/Vol] 2.2 10*3/uL 2.0-7.7 [facility] Neutrophils/100 WBC (Bld) 45.7 % 47-70 [facility] Potassium [Moles/Vol] 4.4 mmol/L 3.5-5.1 [facility] Protein [Mass/Vol] 7.3 g/dL 6.4-8.2 [facility] Sodium [Moles/Vol] 138 mmol/L 136-145 [facility] WBC (Bld) [#/Vol] 4.8 10*3/uL 4.4-11.0 [facility] Blood erythrocytes count (nu mber/volume)Ordered By: Sheyla Cruz on 06-05-2023 RBC (Bld) [#/Vol] 4.31 10*6/uL 4.2-5.4 [facility] Blood hemoglobin measurement (mass/volume)Ordered By: Sheyla Cruz on 06-05-2023 Hemoglobin (Bld) [Mass/Vol] 12.6 g/dL 12.0-15.0 [facility] Blood lymphocytes/100 leukoc ytesOrdered By: Sheyla Cruz on 06-05-2023 Lymphocytes/100 WBC (Bld) 38.7 % 19-41 [facility] Blood monocytes/100 leukocyt esOrdered By: Sheyla Cruz on 06-05-2023 Monocytes/100 WBC (Bld) 8.8 % 0-10 [facility] Blood platelet mean volumeOr dered By: Sheyla Cruz on 06-05-2023 Platelet mean volume (Bld) [Entitic vol] 10.6 fL 6.2-12.0 [facility] Determination of erythrocyte mean corpuscular volume (MCV)Ordered By: Sheyla Cruz on 06-05-2023 MCV (RBC) [Entitic vol] 89.6 fL 81-99 [facility] Hematocrit Auto (Bld) [Volum e fraction]Ordered By: [facility] Anthony on 06-05-2023 Hematocrit (Bld) [Volume fraction] 38.6 % 37-47 [facility] Laboratory - Chemistry and C hemistry - challengeOrdered By: Sheylagalina Cruz on 06-05-2023 ALP [Catalytic activity/Vol] 57 U/L 45-117 [facility] ALT [Catalytic activity/Vol] 46 U/L 13-56 [facility] CO2 [Moles/Vol] 29.0 mmol/L 21.0-32.0 [facility] Globulin (S) [Mass/Vol] 3.6 g/dL 2.2-4.2 [facility] Urea nitrogen/Creatinine [Mass ratio] 23.1 mg/mg 10-20 [facility] - Hematology and Cell countsOrdered By: [facility] Anthony on 06-05-2023 Erythrocyte distribution width (RBC) [Entitic vol] 41.7 fL 35.1-43.9 [facility] Erythrocyte distribution width (RBC) [Ratio] 12.6 % 11.6-14.6 [facility] Immature granulocytes/100 WBC (Bld) 0.400 % 0.0-0.9 [facility] Comment on above: IG% - Immature Granu locytes (promyelocytes, myelocytes and metamyelocytes) > 1% indicates that a LEFT SHIFT is Present. MCH (RBC) [Entitic mass] 29.2 pg 27.0-32.0 [facility] Nucleated RBC/100 WBC (Bld) [Ratio] 0 % 0-5 [facility] MCHC Auto (RBC) [Mass/Vol]Or dered By: Sheylagalina Cruz on 06-05-2023 MCHC (RBC) [Mass/Vol] 32.6 g/dL 32-36 [facility] No Panel InformationOrdered By: Sheylagalina Cruz on 06-05-2023 Estimated GFR (MDRD) Amer 106 mL/min >60 [facility] Comment on above: GFR Calc Estimated GFR (MDRD) Non-Af Amer 88 mL/min >60 [facility] Comment on above: Non- GFR Calc Platelets bldOrdered By: Estee Cruz on 06-05-2023 Platelets (Bld) [#/Vol] 323 10*3/uL 150-450 [facility] Serum or plasma albumin allan urement (mass/volume)Ordered By: Sheyla Cruz on 06-05-2023 Albumin [Mass/Vol] 3.7 g/dL 3.2-5.0 [facility] Serum or plasma albumin/glob ulin mass ratioOrdered By: Sheyla Cruz on 06-05-2023 Albumin/Globulin [Mass ratio] 1.0 {ratio} 0.9-2.4 [facility] Serum or plasma calcium allan urement (mass/volume)Ordered By: Sheyla Cruz on 06-05-2023 Calcium [Mass/Vol] 9.2 mg/dL 8.5-10.1 [facility] Serum or plasma creatinine m easurement (mass/volume)Ordered By: Sheyla Cruz on 06-05-2023 Creatinine [Mass/Vol] 0.74 mg/dL 0.55-1.02 [facility] Comment on above: The validity of the calculated GFR & GFRAA in patients over 70 years has not been determined. Clinical correlation is essential. Serum or plasma urea nitroge n measurement (mass/volume)Ordered By: Sheyla Cruz on 06-05-2023 Urea nitrogen [Mass/Vol] 17 mg/dL 7-18 [facility] Thin prep Papanicolaou smear with manual screeningOrdered By: Sheyla Cruz on 06-05-2023 Thin prep Papanicolaou smear with manual screening 22 U/L 15-37 [facility] Thin prep Papanicolaou smear with manual screening 3 5-15 [facility] .GFRon 05-04-2023 GFR 103 ml/min/1.73sqm Normal [facility] ([place] Comment on above: Result Comment: GFR Population mean for , Non- Americans Ages 20-29 = 116 mL/min/1.73 sq.m. Ages 30-39 = 107 mL/min/1.73 sq.m. Ages 40-49 = 99 mL/min/1.73 sq.m. Ages 50-59 = 93 mL/min/1.73 sq.m. Ages 60-69 = 85 mL/min/1.73 sq.m. Ages 70+ = 75 mL/min/1.73 sq.m. Chronic Kidney Disease: Less than 60 mL/min/1.73 square meters End Stage Renal Disease: Less than 15 mL/min/1.73 square meters Performed By: #### C MP, FT4, FT3, TSH, VIDH, GFR #### [address] [address] GFR Non- 85 ml/min/1.73sqm Normal [facility] ([place] Comment on above: Result Comment: GFR Population mean for , Non- Americans Ages 20-29 = 116 mL/min/1.73 sq.m. Ages 30-39 = 107 mL/min/1.73 sq.m. Ages 40-49 = 99 mL/min/1.73 sq.m. Ages 50-59 = 93 mL/min/1.73 sq.m. Ages 60-69 = 85 mL/min/1.73 sq.m. Ages 70+ = 75 mL/min/1.73 sq.m. Chronic Kidney Disease: Less than 60 mL/min/1.73 square meters End Stage Renal Disease: Less than 15 mL/min/1.73 square meters Performed By: #### C MP, FT4, FT3, TSH, VIDH, GFR #### [address] [address] [facility] Albumin Level 3.5 G/dL Normal 3.5-5.0 [facility] ([place] Comment on above: Performed By: #### C MP, GFR, LIPID, FT3, TSH, FT4 #### [address] [address] Albumin/Globulin [Mass ratio] 0.9 {ratio} Low 1.1-2.5 [facility] ([place] Comment on above: Performed By: #### C MP, GFR, LIPID, FT3, TSH, FT4 #### [address] [address] ALP [Catalytic activity/Vol] 60 U/L Normal 40-135 [facility] ([place] Comment on above: Performed By: #### C MP, GFR, LIPID, FT3, TSH, FT4 #### [address] [address] ALT [Catalytic activity/Vol] 24 U/L Normal 14-59 [facility] ([place] Comment on above: Performed By: #### C MP, GFR, LIPID, FT3, TSH, FT4 #### [address] [address] AST [Catalytic activity/Vol] 13 U/L Normal 10-40 [facility] ([place] Comment on above: Performed By: #### C MP, GFR, LIPID, FT3, TSH, FT4 #### [address] [address] Bili Total 0.3 mg/dL Normal 0.2-1.0 [facility] ([place] Comment on above: Result Comment: Use of this assay is not recommended for patients undergoing treatment with eltrombopag due to the potential for falsely elevated results. Performed By: #### C MP, GFR, LIPID, FT3, TSH, FT4 #### [address] [address] BUN/Creatinine Ratio 18 ratio Normal 7-27 [facility] ([place] Comment on above: Performed By: #### C MP, GFR, LIPID, FT3, TSH, FT4 #### [address] [address] Calcium [Mass/Vol] 9.5 mg/dL Normal 8.4-10.2 [facility] ([place] Comment on above: Performed By: #### C MP, GFR, LIPID, FT3, TSH, FT4 #### [address] [address] Chloride [Moles/Vol] 104 mmol/L Normal 98-107 [facility] ([place] Comment on above: Performed By: #### C MP, GFR, LIPID, FT3, TSH, FT4 #### [address] [address] CO2 [Moles/Vol] 30 mmol/L High 22-29 [facility] ([place] Comment on above: Performed By: #### C MP, GFR, LIPID, FT3, TSH, FT4 #### [address] [address] Creatinine [Mass/Vol] 0.72 mg/dL Normal 0.55-1.02 [facility] [place] Comment on above: Performed By: #### C MP, GFR, LIPID, FT3, TSH, FT4 #### [address] [address] Electrolyte Balance 6.0 mEq/L Normal 4.0-15.0 [facility] ([place] Comment on above: Performed By: #### C MP, GFR, LIPID, FT3, TSH, FT4 #### [address] [address] Globulin 3.8 G/dL Normal [facility] ([place] Comment on above: Performed By: #### C MP, GFR, LIPID, FT3, TSH, FT4 #### [address] [address] Glucose [Mass/Vol] 100 mg/dL Normal 70-105 [facility] ([place] Comment on above: Performed By: #### C MP, GFR, LIPID, FT3, TSH, FT4 #### [address] [address] Potassium [Moles/Vol] 4.8 mmol/L Normal 3.5-5.1 [facility] [place] Comment on above: Performed By: #### C MP, GFR, LIPID, FT3, TSH, FT4 #### [address] [address] Sodium [Moles/Vol] 140 mmol/L Normal 136-145 [facility] ([place] Comment on above: Performed By: #### C MP, GFR, LIPID, FT3, TSH, FT4 #### [address] [address] Total Protein 7.3 G/dL Normal 6.4-8.2 [facility] ([place] Comment on above: Performed By: #### C MP, GFR, LIPID, FT3, TSH, FT4 #### [address] [address] Urea nitrogen [Mass/Vol] 13 mg/dL Normal 7-18 [facility] ([place] Comment on above: Performed By: #### C MP, GFR, LIPID, FT3, TSH, FT4 #### [address] [address] FT3on 05-04-2023 Free T3 [Mass/Vol] 2.17 pg/mL Low 2.30-4.00 [facility] ([place] Comment on above: Performed By: #### C MP, GFR, LIPID, FT3, TSH, FT4 #### [address] [address] FT4on 05-04-2023 Free T4 [Mass/Vol] 1.06 ng/dL Normal 0.76-1.46 [facility] ([place] Comment on above: Performed By: #### C MP, GFR, LIPID, FT3, TSH, FT4 #### [address] [address] LIPIDon 05-04-2023 Cholesterol [Mass/Vol] 150 mg/dL Normal 0-200 [facility] ([place] Comment on above: Result Comment: Chol esterol Reference Interval: Less than 200 Desirable 200-239 Borderline high risk 240 and above High risk Performed By: #### C MP, FT4, FT3, TSH, VIDH, GFR #### [address] [address] Cholesterol in HDL [Mass/Vol] 44 mg/dL Normal 40-60 [facility] ([place] Comment on above: Performed By: #### C MP, FT4, FT3, TSH, VIDH, GFR #### [place] [address] [place], [place] [address] Cholesterol in LDL [Mass/Vol] 89 mg/dL Normal 0-130 [facility] ([place] Comment on above: Performed By: #### C MP, FT4, FT3, TSH, VIDH, GFR #### [place] [id number] [place], [place] [address] Triglyceride [Mass/Vol] 84 mg/dL Normal 0-150 [facility] ([place]) Comment on above: Result Comment: Trig lyceride Reference Interval: Less than 150 Normal 150-199 Borderline high risk 200-499 High risk 500 or higher Very high risk Performed By: #### C MP, FT4, FT3, TSH, VIDH, GFR #### [place] [id number] [place], [place] [address] TSHon 05-04-2023 TSH Qn 1.51 m[IU]/L Normal 0.36-3.74 [facility] ([place] Comment on above: Performed By: #### C MP, GFR, LIPID, FT3, TSH, FT4 #### [address] [address] Absolute lymphocyte countOrd ered By: Noel Roberts on 04-27-2023 Lymphocytes Auto (Unsp spec) [#/Vol] 0.96 10*3/uL 0.83-4.51 [facility] Basophil percentageOrdered B y: Noel Roberts on 04-27-2023 Basophils/100 WBC (Bld) 0.4 % 0-1 [facility] Eosinophils/100 WBC (Bld) 3.0 % 0-5 [facility] Neutrophils (Bld) [#/Vol] 7.1 10*3/uL 2.0-7.7 [facility] Neutrophils/100 WBC (Bld) 76.0 % 47-70 [facility] WBC (Bld) [#/Vol] 9.3 10*3/uL 4.4-11.0 [facility] Bilirubin Test strip Ql (U)O rdered By: Noel Roberts on 04-27-2023 Bilirubin Ql (U) Negative Negative [facility] Blood erythrocytes count (nu mber/volume)Ordered By: Noel Roberts on 04-27-2023 RBC (Bld) [#/Vol] 3.56 10*6/uL 4.2-5.4 [facility] Blood hemoglobin measurement (mass/volume)Ordered By: Noel Roberts on 04-27-2023 Hemoglobin (Bld) [Mass/Vol] 10.7 g/dL 12.0-15.0 [facility] Blood lymphocytes/100 leukoc ytesOrdered By: Noel Roberts on 04-27-2023 Lymphocytes/100 WBC (Bld) 10.3 % 19-41 [facility] Blood monocytes/100 leukocyt esOrdered By: Noel Roberts on 04-27-2023 Monocytes/100 WBC (Bld) 9.7 % 0-10 [facility] Blood platelet mean volumeOr dered By: Noel Roberts on 04-27-2023 Platelet mean volume (Bld) [Entitic vol] 10.2 fL 6.2-12.0 [facility] Determination of erythrocyte mean corpuscular volume (MCV)Ordered By: Noel Roberts on 04-27-2023 MCV (RBC) [Entitic vol] 90.7 fL 81-99 [facility] Hematocrit Auto (Bld) [Volum e fraction]Ordered By: Noel Roberts on 04-27-2023 Hematocrit (Bld) [Volume fraction] 32.3 % 37-47 [facility] Ketones Test strip Ql (U)Ord ered By: Noel Roberts on 04-27-2023 Ketones Ql (U) Negative Negative [facility] - Hematology and Cell countsOrdered By: Noel Roberts on 04-27-2023 Erythrocyte distribution width (RBC) [Entitic vol] 40.4 fL 35.1-43.9 [facility] Erythrocyte distribution width (RBC) [Ratio] 12.0 % 11.6-14.6 [facility] Immature granulocytes/100 WBC (Bld) 0.600 % 0.0-0.9 [facility] Comment on above: IG% - Immature Granu locytes (promyelocytes, myelocytes and metamyelocytes) > 1% indicates that a LEFT SHIFT is Present. MCH (RBC) [Entitic mass] 30.1 pg 27.0-32.0 [facility] Nucleated RBC/100 WBC (Bld) [Ratio] 0 % 0-5 [facility] MCHC Auto (RBC) [Mass/Vol]Or dered By: Noel Roberts on 04-27-2023 MCHC (RBC) [Mass/Vol] 33.1 g/dL 32-36 [facility] Nitrite Test strip Ql (U)Ord ered By: Noel Roberts on 04-27-2023 Nitrite Ql (U) Negative Negative [facility] Platelets bldOrdered By: Marcus Roberts on 04-27-2023 Platelets (Bld) [#/Vol] 369 10*3/uL 150-450 [facility] Protein Test strip Ql (U)Ord ered By: Noel Roberts on 04-27-2023 Protein Ql (U) 30 mg/dl Negative [facility] Urine blood detectionOrdered By: Noel Roberts on 04-27-2023 RBC Ql (U) 250 /ul Negative [facility] Urine clarityOrdered By: Marcus Roberts on 04-27-2023 Clarity (U) Sl. Cloudy Clear [facility] Urine color determinationOrd ered By: Noel Roberts on 04-27-2023 Color (U) Yellow Yellow [facility] Urine glucose detectionOrder ed By: Noel Roberts on 04-27-2023 Glucose Ql (U) Normal mg/dl Normal [facility] Urine leukocyte esterase det ection by dipstickOrdered By: Noel Roberts on 04-27-2023 Leukocyte esterase Test strip Ql (U) 500 /ul Negative [facility] Urine pHOrdered By: Noel Roberts on 04-27-2023 pH (U) 8.0 [pH] 5.0 - 8.0 [facility] Urine specific gravity measu rementOrdered By: Noel Roberts on 04-27-2023 Specific gravity (U) [Rel density] 1.010 1.002-1.030 [facility] Urobilinogen Auto test strip Ql (U)Ordered By: Noel Roberts on 04-27-2023 Urobilinogen Ql (U) 8 mg/dl Normal [facility] Basophil percentageOrdered B y: Rashmi Colin on 04-26-2023 Chloride [Moles/Vol] 106 mmol/L 98-107 [facility] Glucose [Mass/Vol] 122 mg/dL 74-106 [facility] Comment on above: Fasting Glucose resu lt from 100 to 125 mg/dL suggests IMPAIRED HOMEOSTASIS per A.D.A. criteria. Potassium [Moles/Vol] 3.2 mmol/L 3.5-5.1 [facility] Sodium [Moles/Vol] 138 mmol/L 136-145 [facility] - Chemistry and C hemistry - challengeOrdered By: Rashmi Colin on 04-26-2023 CO2 [Moles/Vol] 27.0 mmol/L 21.0-32.0 [facility] Urea nitrogen/Creatinine [Mass ratio] 12.2 mg/mg 10-20 [facility] No Panel InformationOrdered By: Rashmi Colin on 04-26-2023 Estimated Creatinine Clearance Calc 133.94 ml/min [facility] Estimated GFR (MDRD) Amer 169 mL/min >60 [facility] Comment on above: GFR Calc Estimated GFR (MDRD) Non-Af Amer 140 mL/min >60 [facility] Comment on above: Non- GFR Calc Serum or plasma calcium allan urement (mass/volume)Ordered By: Rashmi Colin on 04-26-2023 Calcium [Mass/Vol] 8.2 mg/dL 8.5-10.1 [facility] Serum or plasma creatinine m easurement (mass/volume)Ordered By: Rashmi Colin on 04-26-2023 Creatinine [Mass/Vol] 0.49 mg/dL 0.55-1.02 [facility] Comment on above: The validity of the calculated GFR & GFRAA in patients over 70 years has not been determined. Clinical correlation is essential. Serum or plasma urea nitroge n measurement (mass/volume)Ordered By: Rashmi Colin on 04-26-2023 Urea nitrogen [Mass/Vol] 6 mg/dL 7-18 [facility] Thin prep Papanicolaou smear with manual screeningOrdered By: Rashmi Colin on 04-26-2023 Thin prep Papanicolaou smear with manual screening 5 5-15 [facility] Basophil percentageOrdered B y: Noel Roberts on 04-25-2023 Basophil percentage 2.5 mg/dL 2.5-4.9 [facility] - Chemistry and C hemistry - challengeOrdered By: Noel Roberts on 04-25-2023 Magnesium [Mass/Vol] 2.0 mg/dL 1.6-2.6 [facility] Anaerobic cultureOrdered By: Noel Roberts on 04-24-2023 Bacteria identified Anaer cx Nom (Unsp spec) No anaerobic bacteria isolated. [facility] Bacteria identified Anaer cx Nom (Unsp spec) No anaerobic bacteria isolated. [facility] Bacteria identified Cx Nom ( Wound)Ordered By: Noel Roberts on 04-24-2023 Wound Culture Citrobacter freundii [facility] Wound Culture Streptococcus group F [facility] Wound Culture Citrobacter freundii [facility] Wound Culture Streptococcus group F [facility] Gram stain for investigation of transfusion reactionOrdered By: Noel Roberts on 04-24-2023 Microscopic observation Gram stain Nom (Unsp spec) [facility] Microscopic observation Gram stain Nom (Unsp spec) [facility] Absolute lymphocyte countOrd ered By: Iban Torres on 04-23-2023 Lymphocytes Auto (Unsp spec) [#/Vol] 1.69 10*3/uL 0.83-4.51 [facility] Basophil percentageOrdered B y: Jass Valderrama on 04-23-2023 Basophil percentage 0 SEEN /hpf 0-5 [facility] Basophil percentageOrdered B y: Iban Torres on 04-23-2023 Basophils/100 WBC (Bld) 0.3 % 0-1 [facility] Bilirubin [Mass/Vol] 0.50 mg/dL 0.20-1.00 [facility] Comment on above: For patients on eltr ombopag therapy, use of Dimension Bradley TBIL is not recommended. Chloride [Moles/Vol] 105 mmol/L 98-107 [facility] Eosinophils/100 WBC (Bld) 2.5 % 0-5 [facility] Glucose [Mass/Vol] 101 mg/dL 74-106 [facility] Comment on above: Fasting Glucose resu lt from 100 to 125 mg/dL suggests IMPAIRED HOMEOSTASIS per A.D.A. criteria. Neutrophils (Bld) [#/Vol] 7.6 10*3/uL 2.0-7.7 [facility] Neutrophils/100 WBC (Bld) 71.5 % 47-70 [facility] Potassium [Moles/Vol] 3.8 mmol/L 3.5-5.1 [facility] Protein [Mass/Vol] 7.1 g/dL 6.4-8.2 [facility] Sodium [Moles/Vol] 138 mmol/L 136-145 [facility] WBC (Bld) [#/Vol] 10.6 10*3/uL 4.4-11.0 [facility] Blood erythrocytes count (nu mber/volume)Ordered By: Iban Torres on 04-23-2023 RBC (Bld) [#/Vol] 3.95 10*6/uL 4.2-5.4 [facility] Blood hemoglobin measurement (mass/volume)Ordered By: Iban Torres on 04-23-2023 Hemoglobin (Bld) [Mass/Vol] 11.6 g/dL 12.0-15.0 [facility] Blood lymphocytes/100 leukoc ytesOrdered By: Iban Torres on 04-23-2023 Lymphocytes/100 WBC (Bld) 15.9 % 19-41 [facility] Blood monocytes/100 leukocyt esOrdered By: Iban Torres on 04-23-2023 Monocytes/100 WBC (Bld) 9.5 % 0-10 [facility] Blood platelet mean volumeOr dered By: Iban Torres on 04-23-2023 Platelet mean volume (Bld) [Entitic vol] 10.2 fL 6.2-12.0 [facility] Determination of erythrocyte mean corpuscular volume (MCV)Ordered By: Iban Torres on 04-23-2023 MCV (RBC) [Entitic vol] 90.4 fL 81-99 [facility] Hematocrit Auto (Bld) [Volum e fraction]Ordered By: Iban Torres on 04-23-2023 Hematocrit (Bld) [Volume fraction] 35.7 % 37-47 [facility] - Chemistry and C hemistry - challengeOrdered By: Iban Torres on 04-23-2023 ALP [Catalytic activity/Vol] 59 U/L 45-117 [facility] ALT [Catalytic activity/Vol] 23 U/L 13-56 [facility] CO2 [Moles/Vol] 30.0 mmol/L 21.0-32.0 [facility] Globulin (S) [Mass/Vol] 3.8 g/dL 2.2-4.2 [facility] Lipase [Catalytic activity/Vol] 20 U/L 13-75 [facility] Comment on above: Please note:LIPASE r evised reference range effective 22. New Lipase methodology. Expected to produce lower values than the previous assay method. NEW Reference Range: 13 - 75 U/L Urea nitrogen/Creatinine [Mass ratio] 23.8 mg/mg 10-20 [facility] - Hematology and Cell countsOrdered By: Iban Torres on 04-23-2023 Erythrocyte distribution width (RBC) [Entitic vol] 39.5 fL 35.1-43.9 [facility] Erythrocyte distribution width (RBC) [Ratio] 11.9 % 11.6-14.6 [facility] Immature granulocytes/100 WBC (Bld) 0.300 % 0.0-0.9 [facility] Comment on above: IG% - Immature Granu locytes (promyelocytes, myelocytes and metamyelocytes) > 1% indicates that a LEFT SHIFT is Present. MCH (RBC) [Entitic mass] 29.4 pg 27.0-32.0 [facility] Nucleated RBC/100 WBC (Bld) [Ratio] 0 % 0-5 [facility] MCHC Auto (RBC) [Mass/Vol]Or dered By: Iban Torres on 04-23-2023 MCHC (RBC) [Mass/Vol] 32.5 g/dL 32-36 [facility] Mucus LM Ql (Urine sed)Order ed By: Jass Valderrama on 04-23-2023 Mucus Ql (Urine sed) 0 SEEN /hpf [facility] No Panel InformationOrdered By: Iban Torres on 04-23-2023 Estimated Creatinine Clearance Calc 97.96 ml/min [facility] Estimated GFR (MDRD) Amer 118 mL/min >60 [facility] Comment on above: GFR Calc Estimated GFR (MDRD) Non-Af Amer 98 mL/min >60 [facility] Comment on above: Non- GFR Calc Platelets bldOrdered By: Ginna Torres on 04-23-2023 Platelets (Bld) [#/Vol] 394 10*3/uL 150-450 [facility] Serum or plasma albumin allan urement (mass/volume)Ordered By: Iban Torres on 04-23-2023 Albumin [Mass/Vol] 3.3 g/dL 3.2-5.0 [facility] Serum or plasma albumin/glob ulin mass ratioOrdered By: Iban Torres on 04-23-2023 Albumin/Globulin [Mass ratio] 0.9 {ratio} 0.9-2.4 [facility] Serum or plasma calcium allan urement (mass/volume)Ordered By: Iban Torres on 04-23-2023 Calcium [Mass/Vol] 8.7 mg/dL 8.5-10.1 [facility] Serum or plasma creatinine m easurement (mass/volume)Ordered By: Iban Torres on 04-23-2023 Creatinine [Mass/Vol] 0.67 mg/dL 0.55-1.02 [facility] Comment on above: The validity of the calculated GFR & GFRAA in patients over 70 years has not been determined. Clinical correlation is essential. Serum or plasma urea nitroge n measurement (mass/volume)Ordered By: Iban Torres on 04-23-2023 Urea nitrogen [Mass/Vol] 16 mg/dL 7-18 [facility] Squamous epithelial cells de tection in urine sediment by light microscopyOrdered By: Jass Valderrama on 04-23-2023 Epithelial cells.squamous LM Ql (Urine sed) 0 SEEN /hpf 5-10 [facility] Thin prep Papanicolaou smear with manual screeningOrdered By: Iban Torres on 04-23-2023 Thin prep Papanicolaou smear with manual screening 14 U/L 15-37 [facility] Thin prep Papanicolaou smear with manual screening 3 5-15 [facility] Urine blood detectionOrdered By: Jass Valderrama on 04-23-2023 RBC Ql (U) 0 SEEN /hpf 0-5 [facility] Urine sediment bacteria coun t by microscopy (number/high power field)Ordered By: Jass Valderrama on 04-23-2023 Bacteria LM.HPF (Urine sed) [#/Area] 0 /[HPF] None Seen [facility] Absolute lymphocyte countOrd ered By: Sheyla Cruz on 02-19-2023 Lymphocytes Auto (Unsp spec) [#/Vol] 1.99 10*3/uL 0.83-4.51 [facility] Basophil percentageOrdered B y: Sheyla Cruz on 02-19-2023 Basophils/100 WBC (Bld) 0.5 % 0-1 [facility] Bilirubin [Mass/Vol] 0.30 mg/dL 0.20-1.00 [facility] Comment on above: For patients on eltr ombopag therapy, use of Dimension Bradley TBIL is not recommended. Chloride [Moles/Vol] 109 mmol/L 98-107 [facility] Eosinophils/100 WBC (Bld) 3.5 % 0-5 [facility] Glucose [Mass/Vol] 93 mg/dL 74-106 [facility] Neutrophils (Bld) [#/Vol] 3.2 10*3/uL 2.0-7.7 [facility] Neutrophils/100 WBC (Bld) 53.4 % 47-70 [facility] Potassium [Moles/Vol] 3.6 mmol/L 3.5-5.1 [facility] Protein [Mass/Vol] 7.0 g/dL 6.4-8.2 [facility] Sodium [Moles/Vol] 138 mmol/L 136-145 [facility] WBC (Bld) [#/Vol] 6.0 10*3/uL 4.4-11.0 [facility] Blood erythrocytes count (nu mber/volume)Ordered By: Sheyla Cruz on 02-19-2023 RBC (Bld) [#/Vol] 4.27 10*6/uL 4.2-5.4 [facility] Blood hemoglobin measurement (mass/volume)Ordered By: Sheyla Cruz on 02-19-2023 Hemoglobin (Bld) [Mass/Vol] 13.1 g/dL 12.0-15.0 [facility] Blood lymphocytes/100 leukoc ytesOrdered By: Sheyla Cruz on 02-19-2023 Lymphocytes/100 WBC (Bld) 33.4 % 19-41 [facility] Blood monocytes/100 leukocyt esOrdered By: Sheyla Cruz on 02-19-2023 Monocytes/100 WBC (Bld) 8.9 % 0-10 [facility] Blood platelet mean volumeOr dered By: Sheyla Cruz on 02-19-2023 Platelet mean volume (Bld) [Entitic vol] 10.9 fL 6.2-12.0 [facility] Determination of erythrocyte mean corpuscular volume (MCV)Ordered By: Sheyla Cruz on 02-19-2023 MCV (RBC) [Entitic vol] 91.6 fL 81-99 [facility] Hematocrit Auto (Bld) [Volum e fraction]Ordered By: Sheyla Cruz on 02-19-2023 Hematocrit (Bld) [Volume fraction] 39.1 % 37-47 [facility] - Chemistry and C hemistry - challengeOrdered By: Sheyla Cruz on 02-19-2023 ALP [Catalytic activity/Vol] 50 U/L 45-117 [facility] ALT [Catalytic activity/Vol] 27 U/L 13-56 [facility] CO2 [Moles/Vol] 25.0 mmol/L 21.0-32.0 [facility] Globulin (S) [Mass/Vol] 3.1 g/dL 2.2-4.2 [facility] Urea nitrogen/Creatinine [Mass ratio] 27.8 mg/mg 10-20 [facility] - Hematology and Cell countsOrdered By: Sheyla Cruz on 02-19-2023 Erythrocyte distribution width (RBC) [Entitic vol] 40.4 fL 35.1-43.9 [facility] Erythrocyte distribution width (RBC) [Ratio] 12.1 % 11.6-14.6 [facility] Immature granulocytes/100 WBC (Bld) 0.300 % 0.0-0.9 [facility] Comment on above: IG% - Immature Granu locytes (promyelocytes, myelocytes and metamyelocytes) > 1% indicates that a LEFT SHIFT is Present. MCH (RBC) [Entitic mass] 30.7 pg 27.0-32.0 [facility] Nucleated RBC/100 WBC (Bld) [Ratio] 0 % 0-5 [facility] MCHC Auto (RBC) [Mass/Vol]Or dered By: Sheyla Cruz on 02-19-2023 MCHC (RBC) [Mass/Vol] 33.5 g/dL 32-36 [facility] No Panel InformationOrdered By: Sheyla Cruz on 02-19-2023 Estimated GFR (MDRD) Amer 123 mL/min >60 [facility] Comment on above: GFR Calc Estimated GFR (MDRD) Non-Af Amer 102 mL/min >60 [facility] Comment on above: Non- GFR Calc Platelets bldOrdered By: Estee Cruz on 02-19-2023 Platelets (Bld) [#/Vol] 300 10*3/uL 150-450 [facility] Serum or plasma albumin allan urement (mass/volume)Ordered By: Sheyla Cruz on 02-19-2023 Albumin [Mass/Vol] 3.9 g/dL 3.2-5.0 [facility] Serum or plasma albumin/glob ulin mass ratioOrdered By: Sheyla Cruz on 02-19-2023 Albumin/Globulin [Mass ratio] 1.3 {ratio} 0.9-2.4 [facility] Serum or plasma calcium allan urement (mass/volume)Ordered By: Sheyla Cruz on 02-19-2023 Calcium [Mass/Vol] 9.4 mg/dL 8.5-10.1 [facility] Serum or plasma creatinine m easurement (mass/volume)Ordered By: Sheyla Cruz on 02-19-2023 Creatinine [Mass/Vol] 0.65 mg/dL 0.55-1.02 [facility] Comment on above: The validity of the calculated GFR & GFRAA in patients over 70 years has not been determined. Clinical correlation is essential. Serum or plasma urea nitroge n measurement (mass/volume)Ordered By: Sheyla Cruz on 02-19-2023 Urea nitrogen [Mass/Vol] 18 mg/dL 7-18 [facility] Thin prep Papanicolaou smear with manual screeningOrdered By: Sheyla Cruz on 02-19-2023 Thin prep Papanicolaou smear with manual screening 21 U/L 15-37 [facility] Thin prep Papanicolaou smear with manual screening 4 5-15 [facility] MA MAMMOGRAM SCREENING BILAT ERAL W/TOMOon 01-24-2023 MA MAMMOGRAM SCREENING BILATERAL W/ABDIRIZAK ORIGINAL FROM: SANDI RUFE [address] [place], [place] [address] PROCEDURE FOR: ERLINDA ATKINS [address] [place] [address] Home: PID#: [id number] Exam#: [id number] : 1970 Age: 52 TO: VARGAS SERRA DO [address] [address] Fax: NO FAX EXAMINATION: SCREENING DIGITAL BILATERAL MAMMOGRAM WITH TOMOSYNTHESIS, 01/23/2023 3:38 pm TECHNIQUE: Screening mammography of the bilateral breasts was performed with tomosynthesis. 2D standard and 3D tomosynthesis combination imaging performed through both breasts in the MLO and CC projection. Computer aided detection was utilized in the interpretation of this exam. COMPARISON: 03/14/2018, 04/20/2016 HISTORY: Breast cancer screening. FINDINGS: BREAST DENSITY: Scattered fibroglandular tissue There are postoperative changes in both breasts. There are benign appearing calcifications in both breasts. There are benign appearing unchanged asymmetries in both breasts. There are no significant masses or calcifications. IMPRESSION: No mammographic evidence of malignancy. Continued screening with annual mammograms is recommended. BIRADS: MAMMOGRAM BI-RADS: 2: Benign finding RECALL: 1 year screening RECALL TYPE: mammo LETTER SENT: Normal BI-RADS 1 and 2 Interpreted by: Bereket Monson MD Preliminary Report By: Bereket Monson MD Electronically signed By Bereket Monson MD Dictated Date: 01/24/2023 5:30:40 PM Prelim Date: 01/24/2023 5:34:59 PM Sign Date: 01/24/2023 5:34:59 PM Ordering Provider: VARGAS SERRA Bicycle Service Technician: ROMIE RANGEL RT(R) (M) letter sent: Normal BI-RADS 1 and 2 Mammogram BI-RADS: 2 Benign Normal [facility] ([place]) Absolute lymphocyte countOrd ered By: Dr. Cruz on 11-23-2022 Lymphocytes Auto (Unsp spec) [#/Vol] 1.95 10*3/uL 0.83-4.51 [facility] Basophil percentageOrdered B y: Dr. Cruz on 11-23-2022 Basophils/100 WBC (Bld) 1.1 % 0-1 [facility] Bilirubin [Mass/Vol] 0.40 mg/dL 0.20-1.00 [facility] Comment on above: For patients on eltr ombopag therapy, use of Dimension Bradley TBIL is not recommended. Chloride [Moles/Vol] 107 mmol/L 98-107 [facility] Eosinophils/100 WBC (Bld) 3.0 % 0-5 [facility] Glucose [Mass/Vol] 125 mg/dL 74-106 [facility] Comment on above: Fasting Glucose resu lt from 100 to 125 mg/dL suggests IMPAIRED HOMEOSTASIS per A.D.A. criteria. Neutrophils (Bld) [#/Vol] 3.1 10*3/uL 2.0-7.7 [facility] Neutrophils/100 WBC (Bld) 54.1 % 47-70 [facility] Potassium [Moles/Vol] 3.5 mmol/L 3.5-5.1 [facility] Protein [Mass/Vol] 7.0 g/dL 6.4-8.2 [facility] Sodium [Moles/Vol] 137 mmol/L 136-145 [facility] WBC (Bld) [#/Vol] 5.7 10*3/uL 4.4-11.0 [facility] Blood erythrocytes count (nu mber/volume)Ordered By: Dr. Cruz on 11-23-2022 RBC (Bld) [#/Vol] 4.27 10*6/uL 4.2-5.4 [facility] Blood hemoglobin measurement (mass/volume)Ordered By: Dr. Cruz on 11-23-2022 Hemoglobin (Bld) [Mass/Vol] 13.2 g/dL 12.0-15.0 [facility] Blood lymphocytes/100 leukoc ytesOrdered By: Dr. Cruz on 11-23-2022 Lymphocytes/100 WBC (Bld) 34.3 % 19-41 [facility] Blood monocytes/100 leukocyt esOrdered By: Dr. Cruz on 11-23-2022 Monocytes/100 WBC (Bld) 7.0 % 0-10 [facility] Blood platelet mean volumeOr dered By: Dr. Cruz on 11-23-2022 Platelet mean volume (Bld) [Entitic vol] 10.9 fL 6.2-12.0 [facility] Determination of erythrocyte mean corpuscular volume (MCV)Ordered By: Dr. Cruz on 11-23-2022 MCV (RBC) [Entitic vol] 94.4 fL 81-99 [facility] Hematocrit Auto (Bld) [Volum e fraction]Ordered By: Dr. Cruz on 11-23-2022 Hematocrit (Bld) [Volume fraction] 40.3 % 37-47 [facility] - Chemistry and C hemistry - challengeOrdered By: Dr. Cruz on 11-23-2022 ALP [Catalytic activity/Vol] 49 U/L 45-117 [facility] ALT [Catalytic activity/Vol] 30 U/L 13-56 [facility] CO2 [Moles/Vol] 29.0 mmol/L 21.0-32.0 [facility] Globulin (S) [Mass/Vol] 3.3 g/dL 2.2-4.2 [facility] Urea nitrogen/Creatinine [Mass ratio] 23.9 mg/mg 10-20 [facility] - Hematology and Cell countsOrdered By: Dr. Cruz on 11-23-2022 Erythrocyte distribution width (RBC) [Entitic vol] 42.0 fL 35.1-43.9 [facility] Erythrocyte distribution width (RBC) [Ratio] 12.2 % 11.6-14.6 [facility] Immature granulocytes/100 WBC (Bld) 0.500 % 0.0-0.9 [facility] Comment on above: IG% - Immature Granu locytes (promyelocytes, myelocytes and metamyelocytes) > 1% indicates that a LEFT SHIFT is Present. MCH (RBC) [Entitic mass] 30.9 pg 27.0-32.0 [facility] Nucleated RBC/100 WBC (Bld) [Ratio] 0 % 0-5 [facility] MCHC Auto (RBC) [Mass/Vol]Or dered By: Dr. Cruz on 11-23-2022 MCHC (RBC) [Mass/Vol] 32.8 g/dL 32-36 [facility] No Panel InformationOrdered By: Dr. Cruz on 11-23-2022 Estimated GFR (MDRD) Amer 97 mL/min >60 [facility] Comment on above: GFR Calc Estimated GFR (MDRD) Non-Af Amer 81 mL/min >60 [facility] Comment on above: Non- GFR Calc Platelets bldOrdered By: Dr. Cruz on 11-23-2022 Platelets (Bld) [#/Vol] 319 10*3/uL 150-450 [facility] Serum or plasma albumin allan urement (mass/volume)Ordered By: Dr. Cruz on 11-23-2022 Albumin [Mass/Vol] 3.7 g/dL 3.2-5.0 [facility] Serum or plasma albumin/glob ulin mass ratioOrdered By: Dr. Cruz on 11-23-2022 Albumin/Globulin [Mass ratio] 1.1 {ratio} 0.9-2.4 [facility] Serum or plasma calcium allan urement (mass/volume)Ordered By: Dr. Cruz on 11-23-2022 Calcium [Mass/Vol] 9.1 mg/dL 8.5-10.1 [facility] Serum or plasma creatinine m easurement (mass/volume)Ordered By: Dr. Cruz on 11-23-2022 Creatinine [Mass/Vol] 0.79 mg/dL 0.55-1.02 [facility] Comment on above: The validity of the calculated GFR & GFRAA in patients over 70 years has not been determined. Clinical correlation is essential. Serum or plasma urea nitroge n measurement (mass/volume)Ordered By: Dr. Cruz on 11-23-2022 Urea nitrogen [Mass/Vol] 19 mg/dL 7-18 [facility] Thin prep Papanicolaou smear with manual screeningOrdered By: Dr. Cruz on 11-23-2022 Thin prep Papanicolaou smear with manual screening 20 U/L 15-37 [facility] Thin prep Papanicolaou smear with manual screening 1 5-15 [facility] Absolute lymphocyte countOrd ered By: Dr. Cruz on 08-27-2022 Lymphocytes Auto (Unsp spec) [#/Vol] 1.85 10*3/uL 0.83-4.51 [facility] Basophil percentageOrdered B y: Dr. Cruz on 08-27-2022 Basophils/100 WBC (Bld) 0.6 % 0-1 [facility] Bilirubin [Mass/Vol] 0.40 mg/dL 0.20-1.00 [facility] Comment on above: For patients on eltr ombopag therapy, use of Dimension Bradley TBIL is not recommended. Chloride [Moles/Vol] 108 mmol/L 98-107 [facility] Eosinophils/100 WBC (Bld) 2.3 % 0-5 [facility] Glucose [Mass/Vol] 91 mg/dL 74-106 [facility] Neutrophils (Bld) [#/Vol] 3.7 10*3/uL 2.0-7.7 [facility] Neutrophils/100 WBC (Bld) 58.9 % 47-70 [facility] Potassium [Moles/Vol] 4.0 mmol/L 3.5-5.1 [facility] Protein [Mass/Vol] 7.3 g/dL 6.4-8.2 [facility] Sodium [Moles/Vol] 141 mmol/L 136-145 [facility] WBC (Bld) [#/Vol] 6.2 10*3/uL 4.4-11.0 [facility] Blood erythrocytes count (nu mber/volume)Ordered By: Dr. Cruz on 08-27-2022 RBC (Bld) [#/Vol] 4.34 10*6/uL 4.2-5.4 [facility] Blood hemoglobin measurement (mass/volume)Ordered By: Dr. Cruz on 08-27-2022 Hemoglobin (Bld) [Mass/Vol] 13.4 g/dL 12.0-15.0 [facility] Blood lymphocytes/100 leukoc ytesOrdered By: Dr. Cruz on 08-27-2022 Lymphocytes/100 WBC (Bld) 29.7 % 19-41 [facility] Blood monocytes/100 leukocyt esOrdered By: Dr. Cruz on 08-27-2022 Monocytes/100 WBC (Bld) 8.2 % 0-10 [facility] Blood platelet mean volumeOr dered By: Dr. Cruz on 08-27-2022 Platelet mean volume (Bld) [Entitic vol] 10.7 fL 6.2-12.0 [facility] Determination of erythrocyte mean corpuscular volume (MCV)Ordered By: Dr. Cruz on 08-27-2022 MCV (RBC) [Entitic vol] 92.4 fL 81-99 [facility] Hematocrit Auto (Bld) [Volum e fraction]Ordered By: Dr. Cruz on 08-27-2022 Hematocrit (Bld) [Volume fraction] 40.1 % 37-47 [facility] - Chemistry and C hemistry - challengeOrdered By: Dr. Cruz on 08-27-2022 ALP [Catalytic activity/Vol] 49 U/L 45-117 [facility] ALT [Catalytic activity/Vol] 25 U/L 13-56 [facility] CO2 [Moles/Vol] 29.0 mmol/L 21.0-32.0 [facility] Globulin (S) [Mass/Vol] 3.5 g/dL 2.2-4.2 [facility] Urea nitrogen/Creatinine [Mass ratio] 16.4 mg/mg 10-20 [facility] - Hematology and Cell countsOrdered By: Dr. Cruz on 08-27-2022 Erythrocyte distribution width (RBC) [Entitic vol] 39.4 fL 35.1-43.9 [facility] Erythrocyte distribution width (RBC) [Ratio] 11.7 % 11.6-14.6 [facility] Immature granulocytes/100 WBC (Bld) 0.300 % 0.0-0.9 [facility] Comment on above: IG% - Immature Granu locytes (promyelocytes, myelocytes and metamyelocytes) > 1% indicates that a LEFT SHIFT is Present. MCH (RBC) [Entitic mass] 30.9 pg 27.0-32.0 [facility] Nucleated RBC/100 WBC (Bld) [Ratio] 0 % 0-5 [facility] MCHC Auto (RBC) [Mass/Vol]Or dered By: Dr. Cruz on 08-27-2022 MCHC (RBC) [Mass/Vol] 33.4 g/dL 32-36 [facility] No Panel InformationOrdered By: Dr. Cruz on 08-27-2022 Estimated GFR (MDRD) Amer 107 mL/min >60 [facility] Comment on above: GFR Calc Estimated GFR (MDRD) Non-Af Amer 88 mL/min >60 [facility] Comment on above: Non- GFR Calc Platelets bldOrdered By: Dr. Cruz on 08-27-2022 Platelets (Bld) [#/Vol] 392 10*3/uL 150-450 [facility] Serum or plasma albumin allan urement (mass/volume)Ordered By: Dr. Cruz on 08-27-2022 Albumin [Mass/Vol] 3.8 g/dL 3.2-5.0 [facility] Serum or plasma albumin/glob ulin mass ratioOrdered By: Dr. Cruz on 08-27-2022 Albumin/Globulin [Mass ratio] 1.1 {ratio} 0.9-2.4 [facility] Serum or plasma calcium allan urement (mass/volume)Ordered By: Dr. Cruz on 08-27-2022 Calcium [Mass/Vol] 9.4 mg/dL 8.5-10.1 [facility] Serum or plasma creatinine m easurement (mass/volume)Ordered By: Dr. Cruz on 08-27-2022 Creatinine [Mass/Vol] 0.73 mg/dL 0.55-1.02 [facility] Comment on above: The validity of the calculated GFR & GFRAA in patients over 70 years has not been determined. Clinical correlation is essential. Serum or plasma urea nitroge n measurement (mass/volume)Ordered By: Dr. Cruz on 08-27-2022 Urea nitrogen [Mass/Vol] 12 mg/dL 7-18 [facility] Thin prep Papanicolaou smear with manual screeningOrdered By: Dr. Cruz on 08-27-2022 Thin prep Papanicolaou smear with manual screening 14 U/L 15-37 [facility] Thin prep Papanicolaou smear with manual screening 4 5-15 [facility] LABORATORYOrdered By: SYSTEM SYSTEM on 07-19-2022 Albumin BCP dye [Mass/Vol] 4.2 G/dL Invalid Interpretation Code 3.5 - 5.0 G/dL AO ADM SS Albumin/Globulin [Mass ratio] 1.3 {ratio} Invalid Interpretation Code 1.1 - 2.5 ratio AO ADM SS ALP [Catalytic activity/Vol] 55 U/L Invalid Interpretation Code 40 - 135 U/L AO ADM SS ALT With P-5'-P [Catalytic activity/Vol] 30 U/L Invalid Interpretation Code 14 - 59 U/L AO ADM SS AST With P-5'-P [Catalytic activity/Vol] 20 U/L Invalid Interpretation Code 10 - 40 U/L AO ADM SS Bilirubin [Mass/Vol] 0.5 mg/dL Invalid Interpretation Code 0.2 - 1.0 mg/dL AO ADM SS Calcium [Mass/Vol] 9.4 mg/dL Invalid Interpretation Code 8.4 - 10.2 mg/dL AO ADM SS Chloride [Moles/Vol] 103 mmol/L Invalid Interpretation Code 98 - 107 mmol/L AO ADM SS CO2 [Moles/Vol] 29 mmol/L Invalid Interpretation Code 22 - 29 mmol/L AO ADM SS Creatinine [Mass/Vol] 1.03 mg/dL Invalid Interpretation Code 0.55 - 1.02 mg/dL AO ADM SS Electrolyte Balance 8.0 mEq/L Invalid Interpretation Code 4.0 - 15.0 mEq/L AO ADM SS Free T3 [Mass/Vol] 2.09 pg/mL Invalid Interpretation Code 2.30 - 4.00 pg/mL AO ADM SS Free T4 [Mass/Vol] 0.84 ng/dL Invalid Interpretation Code 0.76 - 1.46 ng/dL AO ADM SS Globulin 3.2 G/dL Invalid Interpretation Code AO ADM SS Glucose [Mass/Vol] 101 mg/dL Invalid Interpretation Code 70 - 105 mg/dL AO ADM SS Potassium [Moles/Vol] 4.3 mmol/L Invalid Interpretation Code 3.5 - 5.1 mmol/L AO ADM SS Protein [Mass/Vol] 7.4 G/dL Invalid Interpretation Code 6.4 - 8.2 G/dL AO ADM SS Sodium [Moles/Vol] 140 mmol/L Invalid Interpretation Code 136 - 145 mmol/L AO ADM SS TSH Qn 4.79 m[IU]/L Invalid Interpretation Code 0.36 - 3.74 mcIU/mL AO ADM SS Urea nitrogen [Mass/Vol] 21 mg/dL Invalid Interpretation Code 7 - 18 mg/dL AO ADM SS Urea nitrogen/Creatinine [Mass ratio] 20 ratio Invalid Interpretation Code 7 - 27 ratio AO ADM SS Vit. D 25-Hydroxy 67.6 ng/mL Invalid Interpretation Code AO ADM SS LABORATORYOrdered By: Farideh Perry on 07-19-2022 Cholesterol [Mass/Vol] 209 mg/dL Invalid Interpretation Code 0 - 200 mg/dL AO ADM SS Cholesterol in HDL [Mass/Vol] 61 mg/dL Invalid Interpretation Code 40 - 60 mg/dL AO ADM SS Cholesterol in LDL [Mass/Vol] 132 mg/dL Invalid Interpretation Code 0 - 130 mg/dL AO ADM SS Triglyceride [Mass/Vol] 80 mg/dL Invalid Interpretation Code 0 - 150 mg/dL AO ADM SS LABORATORYOrdered By: Radha Gottlieb on 07-19-2022 HCV Ab IA Ql Non-Reactive (07/19/22 2:57 PM) Invalid Interpretation Code Non-Reactive AH ADM SS HCV Ab IA Ql Nonreactive: Samples with a value < 0.80 are considered nonreactive (negative) for antibodies to HCV.A negative test result does not exclude the possibility of exposure to or infection with HCV. HCV antibodies may be undetectable in some stages of the infection and in some clinical conditions. Invalid Interpretation Code AH Chemistry S Influenza virus A and B and SARS-CoV-2 (COVID-19) Ag panel - Upper respiratory specimOrdered By: Dr. John on 06-22-2022 SARS-CoV-2 & FLU Antigen (Rapid) SARS-CoV-2 (COVID 19) [facility] Absolute lymphocyte countOrd ered By: Dr. Cruz on 05-30-2022 Lymphocytes Auto (Unsp spec) [#/Vol] 2.01 10*3/uL 0.83-4.51 [facility] Basophil percentageOrdered B y: Dr. Cruz on 05-30-2022 Basophils/100 WBC (Bld) 0.6 % 0-1 [facility] Bilirubin [Mass/Vol] 0.30 mg/dL 0.20-1.00 [facility] Comment on above: For patients on eltr ombopag therapy, use of Dimension Bradley TBIL is not recommended. Chloride [Moles/Vol] 103 mmol/L 98-107 [facility] Eosinophils/100 WBC (Bld) 1.1 % 0-5 [facility] Glucose [Mass/Vol] 75 mg/dL 74-106 [facility] Neutrophils (Bld) [#/Vol] 4.0 10*3/uL 2.0-7.7 [facility] Neutrophils/100 WBC (Bld) 60.5 % 47-70 [facility] Potassium [Moles/Vol] 3.9 mmol/L 3.5-5.1 [facility] Protein [Mass/Vol] 6.9 g/dL 6.4-8.2 [facility] Sodium [Moles/Vol] 137 mmol/L 136-145 [facility] WBC (Bld) [#/Vol] 6.6 10*3/uL 4.4-11.0 [facility] Blood erythrocytes count (nu mber/volume)Ordered By: Dr. Cruz on 05-30-2022 RBC (Bld) [#/Vol] 4.14 10*6/uL 4.2-5.4 [facility] Blood hemoglobin measurement (mass/volume)Ordered By: Dr. Cruz on 05-30-2022 Hemoglobin (Bld) [Mass/Vol] 13.1 g/dL 12.0-15.0 [facility] Blood lymphocytes/100 leukoc ytesOrdered By: Dr. Cruz on 05-30-2022 Lymphocytes/100 WBC (Bld) 30.3 % 19-41 [facility] Blood monocytes/100 leukocyt esOrdered By: Dr. Cruz on 05-30-2022 Monocytes/100 WBC (Bld) 6.9 % 0-10 [facility] Blood platelet mean volumeOr dered By: Dr. Cruz on 05-30-2022 Platelet mean volume (Bld) [Entitic vol] 10.5 fL 6.2-12.0 [facility] Determination of erythrocyte mean corpuscular volume (MCV)Ordered By: Dr. Cruz on 05-30-2022 MCV (RBC) [Entitic vol] 92.3 fL 81-99 [facility] Hematocrit Auto (Bld) [Volum e fraction]Ordered By: Dr. Cruz on 05-30-2022 Hematocrit (Bld) [Volume fraction] 38.2 % 37-47 [facility] Laboratory - Chemistry and C hemistry - challengeOrdered By: Dr. Cruz on 05-30-2022 ALP [Catalytic activity/Vol] 50 U/L 45-117 [facility] ALT [Catalytic activity/Vol] 26 U/L 13-56 [facility] CO2 [Moles/Vol] 27.0 mmol/L 21.0-32.0 [facility] Globulin (S) [Mass/Vol] 3.1 g/dL 2.2-4.2 [facility] Urea nitrogen/Creatinine [Mass ratio] 23.1 mg/mg 10-20 [facility] Laboratory - Hematology and Cell countsOrdered By: Dr. Cruz on 05-30-2022 Erythrocyte distribution width (RBC) [Entitic vol] 42.1 fL 35.1-43.9 [facility] Erythrocyte distribution width (RBC) [Ratio] 12.4 % 11.6-14.6 [facility] Immature granulocytes/100 WBC (Bld) 0.600 % 0.0-0.9 [facility] Comment on above: IG% - Immature Granu locytes (promyelocytes, myelocytes and metamyelocytes) > 1% indicates that a LEFT SHIFT is Present. MCH (RBC) [Entitic mass] 31.6 pg 27.0-32.0 [facility] Nucleated RBC/100 WBC (Bld) [Ratio] 0 % 0-5 [facility] MCHC Auto (RBC) [Mass/Vol]Or dered By: Dr. Cruz on 05-30-2022 MCHC (RBC) [Mass/Vol] 34.3 g/dL 32-36 [facility] No Panel InformationOrdered By: Dr. Cruz on 05-30-2022 Estimated GFR (MDRD) Amer 106 mL/min >60 [facility] Comment on above: GFR Calc Estimated GFR (MDRD) Non-Af Amer 88 mL/min >60 [facility] Comment on above: Non- GFR Calc Platelets bldOrdered By: Dr. Cruz on 05-30-2022 Platelets (Bld) [#/Vol] 345 10*3/uL 150-450 [facility] Serum or plasma albumin allan urement (mass/volume)Ordered By: Dr. Cruz on 05-30-2022 Albumin [Mass/Vol] 3.8 g/dL 3.2-5.0 [facility] Serum or plasma albumin/glob ulin mass ratioOrdered By: Dr. Cruz on 05-30-2022 Albumin/Globulin [Mass ratio] 1.2 {ratio} 0.9-2.4 [facility] Serum or plasma calcium allan urement (mass/volume)Ordered By: Dr. Cruz on 05-30-2022 Calcium [Mass/Vol] 9.3 mg/dL 8.5-10.1 [facility] Serum or plasma creatinine m easurement (mass/volume)Ordered By: Dr. Cruz on 05-30-2022 Creatinine [Mass/Vol] 0.74 mg/dL 0.55-1.02 [facility] Comment on above: The validity of the calculated GFR & GFRAA in patients over 70 years has not been determined. Clinical correlation is essential. Serum or plasma urea nitroge n measurement (mass/volume)Ordered By: Dr. Cruz on 05-30-2022 Urea nitrogen [Mass/Vol] 17 mg/dL 7-18 [facility] Thin prep Papanicolaou smear with manual screeningOrdered By: Dr. Cruz on 05-30-2022 Thin prep Papanicolaou smear with manual screening 17 U/L 15-37 [facility] Thin prep Papanicolaou smear with manual screening 7 5-15 [facility] LABORATORYOrdered By: Mau Atkins on 05-03-2022 C. trachomatis DNA KERRY+probe Ql (Unsp spec) Negative (05/03/22 4:56 PM) Invalid Interpretation Code Negative AH Auto Viro/Sero SS C. trachomatis DNA KERRY+probe Ql (Unsp spec) C. trachomatis DNA not detected. Specimen is presumptive negative forC. trachomatis.A negative result does not preclude C. trachomatis infection becauseresults depend on adequate specimen collection, absence of inhibitors,and sufficient DNA to be detected. Invalid Interpretation Code See CT Interp N AH Auto Viro/Sero SS N. gonorrhoeae DNA KERRY+probe Ql (Unsp spec) Negative (05/03/22 4:56 PM) Invalid Interpretation Code Negative Auto Viro/Sero SS N. gonorrhoeae DNA KERRY+probe Ql (Unsp spec) N. gonorrhoeae DNA not detected. Specimen is presumptive negative forN. gonorrhoeae. A negative result does not preclude Neisseria gonorrhoeaeinfection because results depend on adequate specimen collection, absenceof inhibitors, and sufficient DNA to be detected. Invalid Interpretation Code See NG Interp N Auto Viro/Sero SS Laboratory - Specimen inform ationOrdered By: Mau Atkins on 05-03-2022 Specimen source Nom (Unsp spec) Genital Female (05/03/22 4:56 PM) Invalid Interpretation Code Auto Viro/Sero SS No Panel InformationOrdered By: Nati Sandoval on 05-03-2022 Affirm Pathogens DNA Direct Probe Namita species DNA Probe Negative Gardnerella vaginalis DNA Probe Positive Trichomonas vaginalis DNA Probe Negative [facility] Basophil percentageon 2021 Cholesterol [Mass/Vol] 155 mg/dL <200 [facility] Work Phone: Comment on above: <200 mg/dL Desirable 200-240 mg/dL Borderline >240 mg/dL High Risk Triglyceride [Mass/Vol] 48 mg/dL <199 [facility] Work Phone: Comment on above: The drugs N-Acetylcy steine and Metamizole may falsely depress this assay.Serum Triglycerides Reference Interval Normal <150 mg/dL Borderline high 150 - 199 mg/dL High 200 - 499 mg/dL Very High > or = 500 mg/dL Qualitative QuantiFERON-TB g old in tube teston 03-31-2022 M. tuberculosis tuberculin stim IFN-g Ql (Bld) Not Reportable [facility] Work Phone: Serum or plasma cholesterol in HDL measurement (mass/volume)on 03-31-2022 Cholesterol in HDL [Mass/Vol] 55 mg/dL >40 [facility] Work Phone: Comment on above: The drugs N-Acetylcy steine and Metamizole may falsely depress this assay. Reference Range HDL <40 mg/dL Low HDL Cholesterol HDL >or= 60 mg/dL High HDL Cholesterol Serum or plasma cholesterol in VLDL measurement (mass/volume)on 03-31-2022 Cholesterol in VLDL [Mass/Vol] 10 mg/dL 5-40 [facility] Work Phone: Serum or plasma low density lipoprotein (LDL) cholesterol measurement (mass/volume)on 03-31-2022 Cholesterol in LDL [Mass/Vol] 90 mg/dL 0-130 [facility] Work Phone: Thin prep Papanicolaou smear with manual screeningon 03-31-2022 Thin prep Papanicolaou smear with manual screening See comment [facility] Work Phone: Comment on above: TEST RESULT LIMITSQF T-TB Plus (Client Incubated)QuantiFERON CriteriaQuantiFERON-TB Gold Plus is a qualitative indirect test forM tuberculosis infection (including disease) and is intended for use in conjunction with risk assessment, radiography, and other medical and diagnostic evaluations. The QuantiFERON-TB Gold Plus result is determined by subtracting the Nil value from either TB antigen (Ag) value. The Mitogen tube serves as a control for the test.QuantiFERON TB1 Ag Value 0.06 IU/mLQuantiFERON TB2 Ag Value 0.07 IU/mLQuantiFERON Nil Value 0.06 IU/mLQuantiFERON Mitogen Value >10.00 IU/mLQuantiFERON-TB Gold Plus Negative NegativeNo response to M tuberculosis antigens detected.Infection with M tuberculosis is unlikely, but high riskindividuals should be considered for additional testing(ATS/IDSA/CDC Clinical Practice Guidelines, 2017). Thereference range is an Antigen minus Nil result of <0.35 IU/mL.The specimen received for QuantiFERON testing was incubated by the ordering institution. Specific procedures outlined in our Directory of Services and in the package insert for the QuantiFERON Gold (In Tube) test must be followed to enable for proper stimulation of cells for the production of interferon gamma.Chemiluminescence immunoassay methodology TESTING PERFORMED AT [facility]. ORIGINAL REPORT ON FILE IN LAB CONTAINS ADDITIONAL TEST SITE INFORMATION. Thin prep Papanicolaou smear with manual screening Not Reportable [facility] Work Phone: Absolute lymphocyte counton 03-13-2022 Lymphocytes Auto (Unsp spec) [#/Vol] 2.31 10*3/uL 0.83-4.51 [facility] Work Phone: Basophil percentageon 2021 Basophils/100 WBC (Bld) 1.3 % 0-1 [facility] Work Phone: Bilirubin [Mass/Vol] 0.40 mg/dL 0.20-1.00 [facility] Work Phone: Comment on above: For patients on eltr ombopag therapy, use of Dimension Bradley TBIL is not recommended. Chloride [Moles/Vol] 107 mmol/L 98-107 [facility] Work Phone: Eosinophils/100 WBC (Bld) 1.2 % 0-5 [facility] Work Phone: Glucose [Mass/Vol] 88 mg/dL 74-106 [facility] Work Phone: Neutrophils (Bld) [#/Vol] 3.0 10*3/uL 2.0-7.7 [facility] Work Phone: Neutrophils/100 WBC (Bld) 50.9 % 47-70 [facility] Work Phone: Potassium [Moles/Vol] 4.0 mmol/L 3.5-5.1 [facility] Work Phone: Protein [Mass/Vol] 7.3 g/dL 6.4-8.2 [facility] Work Phone: Sodium [Moles/Vol] 140 mmol/L 136-145 [facility] Work Phone: WBC (Bld) [#/Vol] 6.0 10*3/uL 4.4-11.0 [facility]: Blood erythrocytes count (nu mber/volume)on 03-13-2022 RBC (Bld) [#/Vol] 4.03 10*6/uL 4.2-5.4 [facility] Work Phone: Blood hemoglobin measurement (mass/volume)on 03-13-2022 Hemoglobin (Bld) [Mass/Vol] 12.7 g/dL 12.0-15.0 [facility] Work Phone: Blood lymphocytes/100 leukoc yteson 03-13-2022 Lymphocytes/100 WBC (Bld) 38.8 % 19-41 [facility] Work Phone: Blood monocytes/100 leukocyt eson 03-13-2022 Monocytes/100 WBC (Bld) 7.6 % 0-10 [facility] Work Phone: Blood platelet mean volumeon 03-13-2022 Platelet mean volume (Bld) [Entitic vol] 11.0 fL 6.2-12.0 [facility] Work Phone: Determination of erythrocyte mean corpuscular volume (MCV)on 03-13-2022 MCV (RBC) [Entitic vol] 89.6 fL 81-99 [facility] Work Phone: Hematocrit Auto (Bld) [Volum e fraction]on 03-13-2022 Hematocrit (Bld) [Volume fraction] 36.1 % 37-47 [facility] Work Phone: Laboratory - Chemistry and C hemistry - challengeon 03-13-2022 ALP [Catalytic activity/Vol] 51 U/L 45-117 [facility] Work Phone: ALT [Catalytic activity/Vol] 29 U/L 13-56 [facility] Work Phone: [phone] CO2 [Moles/Vol] 28.0 mmol/L 21.0-32.0 [facility] Work Phone: Globulin (S) [Mass/Vol] 3.3 g/dL 2.2-4.2 [facility] Work Phone: [phone] Urea nitrogen/Creatinine [Mass ratio] 21.5 mg/mg 10-20 [facility] Work Phone: [phone] Laboratory - Hematology and Cell countson 03-13-2022 Erythrocyte distribution width (RBC) [Entitic vol] 40.4 fL 35.1-43.9 [facility] Work Phone: [phone] Erythrocyte distribution width (RBC) [Ratio] 12.4 % 11.6-14.6 [facility] Work Phone: [phone] Immature granulocytes/100 WBC (Bld) 0.200 % 0.0-0.9 [facility] Work Phone: [phone] Comment on above: IG% - Immature Granu locytes (promyelocytes, myelocytes and metamyelocytes) > 1% indicates that a LEFT SHIFT is Present. MCH (RBC) [Entitic mass] 31.5 pg 27.0-32.0 [facility] Work Phone: [phone] Nucleated RBC/100 WBC (Bld) [Ratio] 0 % 0-5 [facility] Work Phone: [phone] MCHC Auto (RBC) [Mass/Vol]on 03-13-2022 MCHC (RBC) [Mass/Vol] 35.2 g/dL 32-36 [facility] Work Phone: No Panel Informationon 03-13 Estimated GFR (MDRD) Amer 81 mL/min >60 [facility] Work Phone: [phone] Comment on above: GFR Calc Estimated GFR (MDRD) Non-Af Amer 67 mL/min >60 [facility] Work Phone: [phone] Comment on above: Non- GFR Calc Platelets bldon 03-13-2022 Platelets (Bld) [#/Vol] 351 10*3/uL 150-450 [facility] Work Phone: [phone] Serum or plasma albumin allan urement (mass/volume)on 03-13-2022 Albumin [Mass/Vol] 4.0 g/dL 3.2-5.0 [facility] Work Phone: [phone] Serum or plasma albumin/glob ulin mass ratioon 03-13-2022 Albumin/Globulin [Mass ratio] 1.2 {ratio} 0.9-2.4 [facility] Work Phone: [phone] Serum or plasma calcium allan urement (mass/volume)on 03-13-2022 Calcium [Mass/Vol] 9.4 mg/dL 8.5-10.1 [facility] Work Phone: [phone] Serum or plasma creatinine m easurement (mass/volume)on 03-13-2022 Creatinine [Mass/Vol] 0.93 mg/dL 0.55-1.02 [facility] Work Phone: Comment on above: The validity of the calculated GFR & GFRAA in patients over 70 years has not been determined. Clinical correlation is essential. Serum or plasma urea nitroge n measurement (mass/volume)on 03-13-2022 Urea nitrogen [Mass/Vol] 20 mg/dL 7-18 [facility] Work Phone: Thin prep Papanicolaou smear with manual screeningon 03-13-2022 Thin prep Papanicolaou smear with manual screening 16 U/L 15-37 [facility] Work Phone: [phone] Thin prep Papanicolaou smear with manual screening 5 5-15 [facility] Work Phone: [phone] Absolute lymphocyte counton 12-26-2021 Lymphocytes Auto (Unsp spec) [#/Vol] 1.93 10*3/uL 0.83-4.51 [facility] Work Phone: Basophil percentageon 2021 Basophils/100 WBC (Bld) 1.0 % 0-1 [facility] Work Phone: [phone] Bilirubin [Mass/Vol] 0.30 mg/dL 0.20-1.00 [facility] Work Phone: [phone] Comment on above: For patients on eltr ombopag therapy, use of Dimension Bradley TBIL is not recommended. Chloride [Moles/Vol] 107 mmol/L 98-107 [facility] Eosinophils/100 WBC (Bld) 2.5 % 0-5 [facility] Work Phone: Glucose [Mass/Vol] 86 mg/dL 74-106 [facility] Work Phone: Neutrophils (Bld) [#/Vol] 2.3 10*3/uL 2.0-7.7 [facility] Work Phone: Neutrophils/100 WBC (Bld) 47.6 % 47-70 [facility] Work Phone: Potassium [Moles/Vol] 3.7 mmol/L 3.5-5.1 [facility] Work Phone: Protein [Mass/Vol] 7.1 g/dL 6.4-8.2 [facility] Work Phone: Sodium [Moles/Vol] 141 mmol/L 136-145 [facility] Work Phone: WBC (Bld) [#/Vol] 4.8 10*3/uL 4.4-11.0 [facility] Work Phone: Blood erythrocytes count (nu mber/volume)on 12-26-2021 RBC (Bld) [#/Vol] 4.44 10*6/uL 4.2-[facility] Blood hemoglobin measurement (mass/volume)on 12-26-2021 Hemoglobin (Bld) [Mass/Vol] 13.8 g/dL 12.0-15.0 [facility] Work Phone: Blood lymphocytes/100 leukoc yteson 12-26-2021 Lymphocytes/100 WBC (Bld) 40.2 % 19-41 [facility] Work Phone: Blood monocytes/100 leukocyt eson 12-26-2021 Monocytes/100 WBC (Bld) 8.5 % 0-10 [facility] Work Phone: Blood platelet mean volumeon 12-26-2021 Platelet mean volume (Bld) [Entitic vol] 11.2 fL 6.2-12.0 [facility] Work Phone: [phone] Determination of erythrocyte mean corpuscular volume (MCV)on 12-26-2021 MCV (RBC) [Entitic vol] 93.5 fL 81-99 [facility] Work Phone: [phone] Hematocrit Auto (Bld) [Volum e fraction]on 12-26-2021 Hematocrit (Bld) [Volume fraction] 41.5 % 37-47 [facility] Work Phone: [phone] Laboratory - Chemistry and C hemistry - challengeon 12-26-2021 ALP [Catalytic activity/Vol] 59 U/L 45-117 [facility] Work Phone: [phone] ALT [Catalytic activity/Vol] 27 U/L 13-56 [facility] Work Phone: [phone] CO2 [Moles/Vol] 29.0 mmol/L 21.0-32.0 [facility] Work Phone: [phone] Globulin (S) [Mass/Vol] 3.4 g/dL 2.2-4.2 [facility] Work Phone: [phone] Urea nitrogen/Creatinine [Mass ratio] 17.0 mg/mg 10-20 [facility] Work Phone: [phone] Laboratory - Hematology and Cell countson 12-26-2021 Erythrocyte distribution width (RBC) [Entitic vol] 40.4 fL 35.1-43.9 [facility] Work Phone: [phone] Erythrocyte distribution width (RBC) [Ratio] 11.8 % 11.6-14.6 [facility] Work Phone: [phone] Immature granulocytes/100 WBC (Bld) 0.200 % 0.0-0.9 [facility] Work Phone: [phone] Comment on above: IG% - Immature Granu locytes (promyelocytes, myelocytes and metamyelocytes) > 1% indicates that a LEFT SHIFT is Present. MCH (RBC) [Entitic mass] 31.1 pg 27.0-32.0 [facility] Work Phone: Nucleated RBC/100 WBC (Bld) [Ratio] 0 % 0-5 [facility] Work Phone: MCHC Auto (RBC) [Mass/Vol]on 12-26-2021 MCHC (RBC) [Mass/Vol] 33.3 g/dL 32-36 [facility] Work Phone: No Panel Informationon 12-26 Estimated GFR (MDRD) Amer 102 mL/min >60 [facility] Work Phone: Comment on above: GFR Calc Estimated GFR (MDRD) Non-Af Amer 85 mL/min >60 [facility] Work Phone: Comment on above: Non- GFR Calc Platelets bldon 12-26-2021 Platelets (Bld) [#/Vol] 343 10*3/uL 150-450 [facility] Work Phone: Serum or plasma albumin allan urement (mass/volume)on 12-26-2021 Albumin [Mass/Vol] 3.7 g/dL 3.2-5.0 [facility] Work Phone: Serum or plasma albumin/glob ulin mass ratioon 12-26-2021 Albumin/Globulin [Mass ratio] 1.1 {ratio} 0.9-2.4 [facility] Work Phone: Serum or plasma calcium allan urement (mass/volume)on 12-26-2021 Calcium [Mass/Vol] 9.1 mg/dL 8.5-10.1 [facility] Work Phone: Serum or plasma creatinine m easurement (mass/volume)on 12-26-2021 Creatinine [Mass/Vol] 0.76 mg/dL 0.55-1.02 [facility] Work Phone: Comment on above: The validity of the calculated GFR & GFRAA in patients over 70 years has not been determined. Clinical correlation is essential. Serum or plasma urea nitroge n measurement (mass/volume)on 12-26-2021 Urea nitrogen [Mass/Vol] 13 mg/dL 7-18 [facility] Work Phone: Thin prep Papanicolaou smear with manual screeningon 12-26-2021 Thin prep Papanicolaou smear with manual screening 16 U/L 15-37 [facility] Work Phone: Thin prep Papanicolaou smear with manual screening 5 5-15 [facility] Work Phone: LABORATORYOrdered By: Jany Montoya on 11-01-2021 C. trachomatis DNA KERRY+probe Ql (Unsp spec) Negative (11/01/21 4:00 PM) Invalid Interpretation Code Negative Auto Viro/Sero SS C. trachomatis Interp C. trachomatis DNA not detected. Specimen is presumptive negative forC. trachomatis.A negative result does not preclude C. trachomatis infection becauseresults depend on adequate specimen collection, absence of inhibitors,and sufficient DNA to be detected. Invalid Interpretation Code See CT Interp N AH Auto Viro/Sero SS N. gonorrhoeae DNA KERRY+probe Ql (Unsp spec) Negative (11/01/21 4:00 PM) Invalid Interpretation Code Negative AH Auto Viro/Sero SS N. gonorrhoeae Interp N. gonorrhoeae DNA not detected. Specimen is presumptive negative forN. gonorrhoeae. A negative result does not preclude Neisseria gonorrhoeaeinfection because results depend on adequate specimen collection, absenceof inhibitors, and sufficient DNA to be detected. Invalid Interpretation Code See NG Interp N AH Auto Viro/Sero SS Laboratory - Specimen inform ationOrdered By: Jany Montoya on 11-01-2021 Specimen source Nom (Unsp spec) Genital Female (11/01/21 4:00 PM) Invalid Interpretation Code AH Auto Viro/Sero SS No Panel Informationon 11-01 Affirm Pathogens DNA Direct Probe Gardnerella vaginalis DNA Probe Positive Trichomonas vaginalis DNA Probe Negative Namita species DNA Probe Negative [facility] Work Phone: Culture Urine 10,000 - 50,000 cfu/ ml Multiple bacterial morphotypes present. Probable Contamination. Suggest recollection if clinically indicated. [facility] Work Phone: Absolute lymphocyte counton 09-20-2021 Lymphocytes Auto (Unsp spec) [#/Vol] 1.71 10*3/uL 0.83-4.51 [facility] Work Phone: Basophil percentageon 2021 Basophils/100 WBC (Bld) 1.0 % 0-1 [facility] Work Phone: Bilirubin [Mass/Vol] 0.30 mg/dL 0.20-1.00 [facility] Work Phone: Comment on above: For patients on eltr ombopag therapy, use of Dimension Bradley TBIL is not recommended. Chloride [Moles/Vol] 105 mmol/L 98-107 [facility] Work Phone: Eosinophils/100 WBC (Bld) 8.0 % 0-5 [facility] Work Phone: Glucose [Mass/Vol] 90 mg/dL 74-106 [facility] Work Phone: Neutrophils (Bld) [#/Vol] 2.3 10*3/uL 2.0-7.7 [facility] Work Phone: Neutrophils/100 WBC (Bld) 46.6 % 47-70 [facility] Work Phone: Potassium [Moles/Vol] 3.6 mmol/L 3.5-5.1 [facility] Work Phone: Protein [Mass/Vol] 7.0 g/dL 6.4-8.2 [facility] Work Phone: Sodium [Moles/Vol] 139 mmol/L 136-145 [facility] Work Phone: WBC (Bld) [#/Vol] 4.9 10*3/uL 4.4-11.0 [facility] Work Phone: Blood erythrocytes count (nu mber/volume)on 09-20-2021 RBC (Bld) [#/Vol] 4.14 10*6/uL 4.2-5.4 [facility] Work Phone: Blood hemoglobin measurement (mass/volume)on 09-20-2021 Hemoglobin (Bld) [Mass/Vol] 13.1 g/dL 12.0-15.0 [facility] Work Phone: Blood lymphocytes/100 leukoc yteson 09-20-2021 Lymphocytes/100 WBC (Bld) 35.0 % 19-41 [facility] Work Phone: [phone] Blood monocytes/100 leukocyt eson 09-20-2021 Monocytes/100 WBC (Bld) 9.0 % 0-10 [facility] Work Phone: Blood platelet mean volumeon 09-20-2021 Platelet mean volume (Bld) [Entitic vol] 10.8 fL 6.2-12.0 [facility] Work Phone: Determination of erythrocyte mean corpuscular volume (MCV)on 09-20-2021 MCV (RBC) [Entitic vol] 94.7 fL 81-99 [facility] Work Phone: Hematocrit Auto (Bld) [Volum e fraction]on 09-20-2021 Hematocrit (Bld) [Volume fraction] 39.2 % 37-47 [facility] Work Phone: Laboratory - Chemistry and C hemistry - challengeon 09-20-2021 ALP [Catalytic activity/Vol] 53 U/L 45-117 [facility] Work Phone: ALT [Catalytic activity/Vol] 34 U/L 13-56 [facility] Work Phone: CO2 [Moles/Vol] 29.0 mmol/L 21.0-32.0 [facility] Work Phone: Globulin (S) [Mass/Vol] 3.2 g/dL 2.2-4.2 [facility] Work Phone: Urea nitrogen/Creatinine [Mass ratio] 28.4 mg/mg 10-20 [facility] Work Phone: Laboratory - Hematology and Cell countson 09-20-2021 Erythrocyte distribution width (RBC) [Entitic vol] 42.6 fL 35.1-43.9 [facility] Work Phone: [phone] Erythrocyte distribution width (RBC) [Ratio] 12.3 % 11.6-14.6 [facility] Work Phone: [phone] Immature granulocytes/100 WBC (Bld) 0.400 % 0.0-0.9 [facility] Work Phone: [phone] Comment on above: IG% - Immature Granu locytes (promyelocytes, myelocytes and metamyelocytes) > 1% indicates that a LEFT SHIFT is Present. MCH (RBC) [Entitic mass] 31.6 pg 27.0-32.0 [facility] Work Phone: [phone] Nucleated RBC/100 WBC (Bld) [Ratio] 0 % 0-5 [facility] Work Phone: [phone] MCHC Auto (RBC) [Mass/Vol]on 09-20-2021 MCHC (RBC) [Mass/Vol] 33.4 g/dL 32-36 [facility] Work Phone: [phone] Panel Informationon 09-20 Endomysial IgA Antibody Negative Negative [facility] Work Phone: [phone] Estimated GFR (MDRD) Amer 119 mL/min >60 [facility] Work Phone: [phone] Comment on above: GFR Calc Estimated GFR (MDRD) Non-Af Amer 99 mL/min >60 [facility] Work Phone: [phone] Comment on above: Non- GFR Calc Platelets bldon 09-20-2021 Platelets (Bld) [#/Vol] 313 10*3/uL 150-450 [facility] Work Phone: [phone] Serum or plasma C reactive p rotein measurement (mass/volume)on 09-20-2021 CRP [Mass/Vol] mg/L 0.0-3.0 [facility] Work Phone: [phone] Comment on above: C-Reactive Protein ( CRP) provides useful information for thediagnosis, therapy and monitoring of inflammatory processesand associated diseases. For the evaluation of Relative Riskfor Cardiovascular Disease, a High Sensitivity CRP (HSCRP)should be ordered. Serum or plasma IgA measurem ent (mass/volume)on 09-20-2021 IgA [Mass/Vol] 141 mg/dL [facility] Work Phone: Comment on above: Performed at: [address] [id number] Director: Cyrus Feng PhD, Phone: [phone] Serum or plasma albumin allan urement (mass/volume)on 09-20-2021 Albumin [Mass/Vol] 3.8 g/dL 3.2-5.0 [facility] Work Phone: Serum or plasma albumin/glob ulin mass ratioon 09-20-2021 Albumin/Globulin [Mass ratio] 1.2 {ratio} 0.9-2.4 [facility] Work Phone: Serum or plasma calcium allan urement (mass/volume)on 09-20-2021 Calcium [Mass/Vol] 9.2 mg/dL 8.5-10.1 [facility] Work Phone: Serum or plasma creatinine m easurement (mass/volume)on 09-20-2021 Creatinine [Mass/Vol] 0.67 mg/dL 0.55-1.02 [facility] Work Phone: Comment on above: The validity of the calculated GFR & GFRAA in patients over 70 years has not been determined. Clinical correlation is essential. Serum or plasma urea nitroge n measurement (mass/volume)on 09-20-2021 Urea nitrogen [Mass/Vol] 19 mg/dL 7-18 [facility] Work Phone: Serum tissue transglutaminas e IgA antibody assay (units/volume)on 09-20-2021 tTG IgA Qn (S) <2 U/mL [facility] Work Phone: Comment on above: Negative 0 - 3 Weak Positive 4 - 10 Positive >10 Tissue Transglutaminase (tTG) has been identified as the endomysial antigen. Studies have demonstr- ated that endomysial IgA antibodies have over 99% specificity for gluten sensitive enteropathy. Thin prep Papanicolaou smear with manual screeningon 09-20-2021 Thin prep Papanicolaou smear with manual screening 16 U/L 15-37 [facility] Work Phone: Thin prep Papanicolaou smear with manual screening 5 5-15 [facility] Work Phone: LABORATORYOrdered By: Rashmi Andrea on 09-12-2021 Albumin BCP dye [Mass/Vol] 4.3 G/dL Invalid Interpretation Code 3.5 - 5.0 G/dL AO ADM SS Albumin/Globulin [Mass ratio] 1.4 {ratio} Invalid Interpretation Code 1.1 - 2.5 ratio AO ADM SS ALP [Catalytic activity/Vol] 55 U/L Invalid Interpretation Code 40 - 135 U/L AO ADM SS ALT With P-5'-P [Catalytic activity/Vol] 46 U/L Invalid Interpretation Code 14 - 59 U/L AO ADM SS AST With P-5'-P [Catalytic activity/Vol] 28 U/L Invalid Interpretation Code 10 - 40 U/L AO ADM SS Bilirubin [Mass/Vol] 0.4 mg/dL Invalid Interpretation Code 0.2 - 1.0 mg/dL AO ADM SS Calcium [Mass/Vol] 9.6 mg/dL Invalid Interpretation Code 8.4 - 10.2 mg/dL AO ADM SS Chloride [Moles/Vol] 104 mmol/L Invalid Interpretation Code 98 - 107 mmol/L AO ADM SS CO2 [Moles/Vol] 31 mmol/L Invalid Interpretation Code 22 - 29 mmol/L AO ADM SS Creatinine [Mass/Vol] 0.78 mg/dL Invalid Interpretation Code 0.55 - 1.02 mg/dL AO ADM SS Electrolyte Balance 5.0 mEq/L Invalid Interpretation Code 4.0 - 15.0 mEq/L AO ADM SS Globulin 3.1 G/dL Invalid Interpretation Code AO ADM SS Glucose [Mass/Vol] 85 mg/dL Invalid Interpretation Code 70 - 105 mg/dL AO ADM SS Potassium [Moles/Vol] 4.4 mmol/L Invalid Interpretation Code 3.5 - 5.1 mmol/L AO ADM SS Protein [Mass/Vol] 7.4 G/dL Invalid Interpretation Code 6.4 - 8.2 G/dL AO ADM SS Sodium [Moles/Vol] 140 mmol/L Invalid Interpretation Code 136 - 145 mmol/L AO ADM SS Urea nitrogen [Mass/Vol] 13 mg/dL Invalid Interpretation Code 7 - 18 mg/dL AO ADM SS Urea nitrogen/Creatinine [Mass ratio] 17 ratio Invalid Interpretation Code 7 - 27 ratio AO ADM SS Free T3 [Mass/Vol] 2.83 pg/mL Invalid Interpretation Code 2.30 - 4.00 pg/mL AO ADM SS Free T4 [Mass/Vol] 1.18 ng/dL Invalid Interpretation Code 0.76 - 1.46 ng/dL AO ADM SS TSH Qn 0.74 m[IU]/L Invalid Interpretation Code 0.36 - 3.74 mcIU/mL AO ADM SS LABORATORYOrdered By: SYSTEM SYSTEM on 09-12-2021 GFR 94 ml/min/1.73sqm Invalid Interpretation Code AO Chemistry S GFR Non- 78 ml/min/1.73sqm Invalid Interpretation Code AO Chemistry S Clinical Summary: HMSPatient IDon 06-21-2020 OOP [facility] Work Phone: Surgical Pathologyon 017 Surgical Pathology [id number] [facility] PATHOLOGY AND LABORATORY MEDICINE [address] [place] [id number] FINAL SURGICAL PATHOLOGY REPORT NAME: ERLINDA ATKINS .O.B.: 1970 46 Y F BILLING NO.: [id number]: [id number] PROCEDURE 02/07/2017 DATE:SURGEON: Elizabeth CHOI M.D. RECEIVED 02/07/2017 DATE:ATTENDING: Elizabeth CHOI M.D. REPORT DATE: 02/20/2017 COPIES TO: DIAGNOSIS:RIGHT FINGERNAIL LESION, EXCISION - PORTION OF NAIL TISSUE WITHHEMORRHAGE.COMMENT: Evidence of melanoma is not identified. A GMS stain wasperformed, and is negative for fungal organisms.SMT/VIKAS POTTS M.D. CLINICAL INFORMATION: Lesion right fingernailSPECIMEN: LESION, BIOPSY, NOS , right fingernail GROSS DESCRIPTION:Lesion right fingernailReceived in formalin is a nail that measures approximately 1.4 cm inlength and up to 1 cm in width. There is an irregular brown area ofpigment seen on the underside of the nail. It measures up to 0.8 x 0.3cm. It begins at the nail base. Specimen is serially sectioned andentirely submitted. (4 ns, 1) JCK/JAFDisclaimer: The following statement applies to allimmunohistochemistry , in situ hybridization, molecular studies, andimmunofluorescence testing.The use of one or more reagents in the above tests is regulated as ananalyte specific reagent (ASR). These tests were developed and theirperformance characteristics determined by the clinical laboratories [facility]. They have not been cleared by the US Food and DrugAdministration (FDA). The FDA has determined that such clearance orapproval is not necessary.All the above immunostains were performed on paraffin embedded tissue.Appropriate positive and negative controls (where applicable) were runin parallel with the patient's specimen; these controls showed expectedstaining pattern, with acceptable intensity of staining.Immunohistoche mical assays have not been validated on decalcifiedtissues. Results should be interpreted with caution given the raisedpossibility of false negativity on decalcified specimens.Professional Performing Location: [address] [address]. DEPARTMENT OF PATHOLOGY AND LABORATORY MEDICINE [place], [place] [address] Normal [facility] Comment on above: Performed By: #### S UR ####Performing Lab is in report Influenza virus A and B and SARS-CoV-2 (COVID-19) Ag panel - Upper respiratory specim SARS-CoV-2 & FLU Antigen (Rapid) SARS-CoV-2 (COVID 19) [facility] Work Phone: Vital Signs Date Time Vital Sign Value Performing Clinician Facility 01-04-2025 09:54-0400 Body temperature 97.6 [degF] Dr. Vargas Serra DO Work Phone: [facility] 01-04-2025 09:54-0400 Diastolic blood pressure 88 mm[Hg] Dr. Vargas Serra DO Work Phone: [facility] 01-04-2025 09:54-0400 Heart rate 53 /min Dr. Vargas Serra DO Work Phone: [facility] 01-04-2025 09:54-0400 Respiratory rate 16 /min Dr. Vargas Serra DO Work Phone: [facility] 01-04-2025 09:54-0400 SaO2% (BldA) [Mass fraction] 99 % Dr. Vargas Serra DO Work Phone: [facility] 01-04-2025 09:54-0400 Systolic blood pressure 141 mm[Hg] Dr. Vargas Serra DO Work Phone: [facility] 01-04-2025 08:24-0400 Body height 172.[address] Vargas Serra DO Work Phone: [facility] 01-04-2025 08:24-0400 Body mass index (BMI) [Ratio] 30.8 kg/m2 Dr. Vargas Serra DO Work Phone: [facility] 01-04-2025 08:24-0400 Body weight [address] Vargas Serra DO Work Phone: [facility] 10-22-2024 09:10-0400 Body height 172.[address] Vargas Serra DO Work Phone: [facility] 10-22-2024 09:10-0400 Body mass index (BMI) [Ratio] 31.9 kg/m2 Dr. Vargas Serra DO Work Phone: [facility] 10-22-2024 09:10-0400 Body temperature 98.2 [degF] Dr. Vargas Serra DO Work Phone: [facility] 10-22-2024 09:10-0400 Body weight 95.[address] Vargas Serra DO Work Phone: [facility] 10-22-2024 09:10-0400 Diastolic blood pressure 96 mm[Hg] Dr. Vargas Serra DO Work Phone: [facility] 10-22-2024 09:10-0400 Heart rate 94 /min Dr. Vargas Serra DO Work Phone: [facility] 10-22-2024 09:10-0400 Respiratory rate 15 /min Dr. Vargas Serra DO Work Phone: [facility] 10-22-2024 09:10-0400 SaO2% (BldA) [Mass fraction] 98 % Dr. Vargas Serra DO Work Phone: [facility] 10-22-2024 09:10-0400 Systolic blood pressure 179 mm[Hg] Dr. Vargas Serra DO Work Phone: [facility] 09-09-2024 15:44-0500 Body temperature 98 [degF] Dr. Vargas Serra DO Work Phone: [facility] 09-09-2024 15:44-0500 Body weight 94.[address] Vargas Serra DO Work Phone: [facility] 09-09-2024 15:44-0500 Diastolic blood pressure 80 mm[Hg] Dr. Vargas Serra DO Work Phone: [facility] 09-09-2024 15:44-0500 Heart rate 87 /min Dr. Vargas Serra DO Work Phone: [facility] 09-09-2024 15:44-0500 Respiratory rate 16 /min Dr. Vargas Serra DO Work Phone: [facility] 09-09-2024 15:44-0500 SaO2% (BldA) [Mass fraction] 99 % Dr. Vargas Serra DO Work Phone: [facility] 09-09-2024 15:44-0500 Systolic blood pressure 128 mm[Hg] Dr. Vargas Serra DO Work Phone: [facility] 06-16-2024 15:21-0500 Body mass index (BMI) [Ratio] 31.48 kg/m2 Dago Athy PA-C Work Phone: [facility] 06-16-2024 15:21-0500 Body temperature 97.59 [degF] Dago Athy PA-C Work Phone: [facility] 06-16-2024 15:21-0500 Body weight 95.3 kg Dago Athy PA-C Work Phone: [facility] 06-16-2024 15:21-0500 Diastolic blood pressure 86 mm[Hg] Dago Athy PA-C Work Phone: [facility] 06-16-2024 15:21-0500 Heart rate 84 /min Dago Athy PA-C Work Phone: [facility] 06-16-2024 15:21-0500 Respiratory rate 18 /min Dago Athy PA-C Work Phone: [facility] 06-16-2024 15:21-0500 SaO2% (BldA) [Mass fraction] 99 % Dago Athy PA-Gentry Work Phone: [facility] 06-16-2024 15:21-0500 Systolic blood pressure 131 mm[Hg] Dago Mays PA-C Work Phone: [facility] 10-18-2023 17:57-0400 Body temperature 98.9 [degF] Dr. Vargas Serra Work Phone: [facility] 10-18-2023 17:57-0400 Diastolic blood pressure 82 mm[Hg] Dr. Vargas Serra Work Phone: [facility] 10-18-2023 17:57-0400 Heart rate 85 /min Dr. Vargas Serra Work Phone: [facility] 10-18-2023 17:57-0400 Respiratory rate 16 /min Dr. Vargas Serra Work Phone: [facility] 10-18-2023 17:57-0400 SaO2% (BldA) [Mass fraction] 98 % Dr. Vargas Serra Work Phone: [facility] 10-18-2023 17:57-0400 Systolic blood pressure 151 mm[Hg] Dr. Vargas Serra Work Phone: [facility] 10-18-2023 12:49-0400 Body height 172.[address] Vargas Serra Work Phone: [facility] 10-18-2023 12:49-0400 Body mass index (BMI) [Ratio] 31.6 kg/m2 Dr. Vargas Serra Work Phone: [facility] 10-18-2023 12:49-0400 Body weight 94.[address] Vargas Serra Work Phone: [facility] 10-15-2023 15:02-0400 Diastolic blood pressure 92 mm[Hg] Dr. Vargas Serra Work Phone: [facility] 10-15-2023 15:02-0400 Heart rate 77 /min Dr. Vargas Serra Work Phone: [facility] 10-15-2023 15:02-0400 Respiratory rate 17 /min Dr. Vargas Serra Work Phone: [facility] 10-15-2023 15:02-0400 SaO2% (BldA) [Mass fraction] 96 % Dr. Vargas Serra Work Phone: [facility] 10-15-2023 15:02-0400 Systolic blood pressure 146 mm[Hg] Dr. Vargas Serra Work Phone: [facility] 10-01-2023 12:33-0500 Body height 174 cm Indira Demond MEDICATION TECHNICIAN.[employer] Work Phone: [facility] 10-01-2023 12:33-0500 Body weight 94.7 kg Indira Demond MEDICATION TECHNICIAN.[employer] Work Phone: [facility] 10-01-2023 12:33-0500 Diastolic blood pressure 80 mm[Hg] Indira Demond MEDICATION TECHNICIAN.[employer] Work Phone: [facility] 10-01-2023 12:33-0500 Heart rate 77 /min Indira Demond MEDICATION TECHNICIAN.[employer] Work Phone: [facility] 10-01-2023 12:33-0500 SaO2% (BldA) [Mass fraction] 96 % Indira Demond MEDICATION 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 Vargas Serra Work Phone: [facility] 06-24-2023 10:25-0500 Diastolic blood pressure 63 mm[Hg] Dr. Vargas Serra Work Phone: [facility] 06-24-2023 10:25-0500 Heart rate 71 /min Dr. Vargas Serra Work Phone: [facility] 06-24-2023 10:25-0500 Respiratory rate 16 /min Dr. Vargas Serra Work Phone: [facility] 06-24-2023 10:25-0500 SaO2% (BldA) [Mass fraction] 100 % Dr. Vargas Serra Work Phone: [facility] 06-24-2023 10:25-0500 Systolic blood pressure 117 mm[Hg] Dr. Vargas Serra Work Phone: [facility] 06-24-2023 08:52-0500 Body height 172.[address] Vargas Serra Work Phone: [facility] 06-24-2023 08:52-0500 Body mass index (BMI) [Ratio] 29.5 kg/m2 Dr. Vargas Serra Work Phone: [facility] 06-24-2023 08:52-0500 Body weight [address] Vargas Serra Work Phone: [facility] 05-28-2023 11:25-0400 Body temperature 97.1 [degF] Dr. Vargas Serra Work Phone: [facility] 05-28-2023 11:25-0400 Diastolic blood pressure 69 mm[Hg] Dr. Vargas Serra Work Phone: [facility] 05-28-2023 11:25-0400 Heart rate 56 /min Dr. Vargas Serra Work Phone: [facility] 05-28-2023 11:25-0400 Respiratory rate 16 /min Dr. Vargas Serra Work Phone: [facility] 05-28-2023 11:25-0400 SaO2% (BldA) [Mass fraction] 100 % Dr. Vargas Serra Work Phone: [facility] 05-28-2023 11:25-0400 Systolic blood pressure 106 mm[Hg] Dr. Vargas Serra Work Phone: [facility] 05-28-2023 09:18-0400 Body height 172.[address] Vargas Serra Work Phone: [facility] 05-28-2023 09:18-0400 Body mass index (BMI) [Ratio] 28.8 kg/m2 Dr. Vargas Serra Work Phone: [facility] 05-28-2023 09:18-0400 Body weight 85.[address] Vargas Serra Work Phone: [facility] 04-27-2023 18:25-0400 Body temperature 98.7 [degF] Dr. Vargas Serra Work Phone: [facility] 04-27-2023 18:25-0400 Diastolic blood pressure 82 mm[Hg] Dr. Vargas Serra Work Phone: [facility] 04-27-2023 18:25-0400 Heart rate 73 /min Dr. Vargas Serra Work Phone: [facility] 04-27-2023 18:25-0400 Respiratory rate 18 /min Dr. Vargas Serra Work Phone: [facility] 04-27-2023 18:25-0400 SaO2% (BldA) [Mass fraction] 100 % Dr. Vargas Serra Work Phone: [facility] 04-27-2023 18:25-0400 Systolic blood pressure 131 mm[Hg] Dr. Vargas Serra Work Phone: [facility] 04-24-2023 14:21-0400 Body height 172.[address] Vargas Serra Work Phone: [facility] 04-24-2023 14:21-0400 Body weight 86.[address] Vargas Serra Work Phone: [facility] 04-24-2023 09:58-0400 Inhaled oxygen flow rate 3 L/min Dr. Vargas Serra Work Phone: [facility] 04-23-2023 23:09-0400 Body mass index (BMI) [Ratio] 29 kg/m2 Dr. Vargas Serra Work Phone: [facility] 04-23-2023 22:35-0400 Body temperature 98.1 [degF] Dr. Vargas Serra Work Phone: [facility] 04-23-2023 22:35-0400 Diastolic blood pressure 88 mm[Hg] Dr. Vargas Serra Work Phone: [facility] 04-23-2023 22:35-0400 Heart rate 87 /min Dr. Vargas Serra Work Phone: [facility] 04-23-2023 22:35-0400 Respiratory rate 18 /min Dr. Vargas Serra Work Phone: [facility] 04-23-2023 22:35-0400 SaO2% (BldA) [Mass fraction] 97 % Dr. Vargas Serra Work Phone: [facility] 04-23-2023 22:35-0400 Systolic blood pressure 166 mm[Hg] Dr. Vargsa Serra Work Phone: [facility] 04-23-2023 18:15-0400 Body height 172.[address] Vargas Serra Work Phone: [facility] 04-23-2023 18:15-0400 Body mass index (BMI) [Ratio] 29 kg/m2 Dr. Vargas Serra Work Phone: [facility] 04-23-2023 18:15-0400 Body weight 86.[address] Vargas Serra Work Phone: [facility] 04-09-2023 16:43-0400 Body temperature 98.01 [degF] Amberly Deleon APRN.CNP Work Phone: [facility] 04-09-2023 16:43-0400 Body weight 87.45 kg Amberly Praisler-Wood MEDICATION TECHNICIAN.[employer] Work Phone: [facility] 04-09-2023 16:43-0400 Diastolic blood pressure 84 mm[Hg] Amberly Praisler-Wood MEDICATION TECHNICIAN.[employer] Work Phone: [facility] 04-09-2023 16:43-0400 Heart rate 72 /min Amberly Praisler-Wood MEDICATION TECHNICIAN.[employer] Work Phone: [facility] 04-09-2023 16:43-0400 Respiratory rate 18 /min Amberly Praisler-Wood MEDICATION TECHNICIAN.[employer] Work Phone: [facility] 04-09-2023 16:43-0400 SaO2% (BldA) [Mass fraction] 98 % Amberly Praisler-Wood MEDICATION TECHNICIAN.[employer] Work Phone: [facility] 04-09-2023 16:43-0400 Systolic blood pressure 132 mm[Hg] Amberly Praisler-Wood MEDICATION TECHNICIAN.[employer] Work Phone: [facility] 03-29-2023 12:54-0400 Body temperature 98.49 [degF] Molly Foster MEDICATION TECHNICIAN.[employer] Work Phone: [facility] 03-29-2023 12:54-0400 Body weight 87.09 kg Molly Foster MEDICATION TECHNICIAN.[employer] Work Phone: [facility] 03-29-2023 12:54-0400 Diastolic blood pressure 82 mm[Hg] Molly Foster MEDICATION TECHNICIAN.[employer] Work Phone: [facility] 03-29-2023 12:54-0400 Heart rate 62 /min Molly Foster MEDICATION TECHNICIAN.[employer] Work Phone: [facility] 03-29-2023 12:54-0400 Respiratory rate 18 /min Molly Foster MEDICATION TECHNICIAN.[employer] Work Phone: [facility] 03-29-2023 12:54-0400 SaO2% (BldA) [Mass fraction] 97 % Molly Foster APRN.[employer] Work Phone: [facility] 03-29-2023 12:54-0400 Systolic blood pressure 136 mm[Hg] Molly Foster APRN.[employer] Work Phone: [facility] 06-22-2022 05:18-0500 Heart rate 100 /min [facility] 06-22-2022 05:18-0500 Respiratory rate 18 /min [facility] 06-22-2022 05:18-0500 SaO2% (BldA) [Mass fraction] 98 % [facility] 06-22-2022 04:05-0500 Body height 172.72 cm [facility] 06-22-2022 04:05-0500 Body mass index (BMI) [Ratio] 30.4 kg/m2 [facility] 06-22-2022 04:05-0500 Body temperature 98.7 [degF] [facility] 06-22-2022 04:05-0500 Body weight 90.7 kg [facility] 06-22-2022 04:05-0500 Diastolic blood pressure 79 mm[Hg] [facility] 06-22-2022 04:05-0500 Systolic blood pressure 154 mm[Hg] [facility] 05-24-2022 11:53-0400 Body temperature 97.39 [degF] Dago Athy PA-C Work Phone: [facility] 05-24-2022 11:53-0400 Body weight 88.36 kg Dago Athy PA-C Work Phone: [facility] 05-24-2022 11:53-0400 Diastolic blood pressure 74 mm[Hg] Dago Athy PA-C Work Phone: [facility] 05-24-2022 11:53-0400 Heart rate 68 /min Dago Athy PA-C Work Phone: [facility] 05-24-2022 11:53-0400 Respiratory rate 18 /min Dago Athy PA-C Work Phone: [facility] 05-24-2022 11:53-0400 SaO2% (BldA) [Mass fraction] 98 % Dago KAPLAN-Gentry Work Phone: [facility] 05-24-2022 11:53-0400 Systolic blood pressure 130 mm[Hg] Dago Mario PA-C Work Phone: [facility] 05-07-2022 18:32-0400 Body temperature 97.3 [degF] Lizette Phong MEDICATION TECHNICIAN.[employer] Work Phone: [facility] 05-07-2022 18:32-0400 Body weight 89.63 kg Lizette Phong MEDICATION TECHNICIAN.[employer] Work Phone: [facility] 05-07-2022 18:32-0400 Diastolic blood pressure 88 mm[Hg] Lizette Phong MEDICATION TECHNICIAN.[employer] Work Phone: [facility] 05-07-2022 18:32-0400 Heart rate 72 /min Lizette Phong MEDICATION TECHNICIAN.[employer] Work Phone: [facility] [facility] 05-07-2022 18:32-0400 Respiratory rate 18 /min Lizette Phong MEDICATION TECHNICIAN.LEADITE HEATER Work Phone: [facility] 05-07-2022 18:32-0400 SaO2% (BldA) [Mass fraction] 98 % Lizette Phong MEDICATION TECHNICIAN.LEADITE HEATER Work Phone: [facility] 05-07-2022 18:32-0400 Systolic blood pressure 120 mm[Hg] Lizette Phong MEDICATION TECHNICIAN.LEADITE HEATER Work Phone: [facility] NEGATED: Highlighted [id number] 12:54-0500 BMI (Body Mass Index) 28.38 kg/m2 Milagros Quinones SOLDERER ASSEMBLER [facility] Work Phone: NEGATED: Highlighted [id number] 12:54-0500 Body weight 84.37 kg Milagros Quinones SOLDERER ASSEMBLER [facility] Work Phone: NEGATED: Highlighted [id number] 12:54-0500 Body weight 85 kg Milagros Quinones [facility] Work Phone: NEGATED: Highlighted [id number] 12:54-0500 BP Diastolic 0 mm[Hg] Milagros Quinones SOLDERER ASSEMBLER [facility] Work Phone: NEGATED: Highlighted [id number] 12:54-0500 BP Systolic 0 mm[Hg] Milagrosmiles Quinones SOLDERER ASSEMBLER [facility] Work Phone: NEGATED: Highlighted [id number] 12:54-0500 Height 172.72 cm Milagros Stacie [facility] Work Phone: NEGATED: Highlighted [id number] 12:54-0500 Height 173 cm Milagrosmiles Quinones [facility] Work Phone: NEGATED: Highlighted [id number] 12:54-0500 Pulse (Heart Rate) 0 /min Greer Stacie [facility] Work Phone: Encounters Encounter Date Encounter Type Care Provider Facility Start: 02-19-2025 End: 02-19-[address] Vargas Serra DO Work Phone: -Laboratory Start: 02-19-2025 End: 02-19-[address] Sheyla Cruz MD -Laboratory Work Phone: Start: 02-19-2025 End: 02-19-2025 ambulatory Sheyla Cruz Facility:[facility] Start: 01-20-2025 End: 01-20-2025 ambulatory VARGAS SERRA DO Facility:[facility] Start: 01-20-2025 End: 01-20-2025 Patient encounter procedure VARGAS SERRA DO [facility] Start: 01-04-2025 End: 01-04-2025 Admission to same day surgery center Dr. Heron Xiao MD -[facility] Start: 01-04-2025 End: 01-04-[address] Vargas Serra DO Work Phone: [facility] Work Phone: Start: 12-24-2024 End: 12-28-2024 ambulatory VARGAS SERRA DO Facility:[facility] Start: 12-24-2024 End: 12-28-2024 Outreach Lab RONAK BULL MEDICATION TECHNICIAN-LEADITE HEATER [facility] Start: 11-17-2024 End: 11-17-2024 ambulatory VARGAS SERRA DO Facility:[facility] Start: 10-22-2024 End: 10-22-2024 Emergency department patient visit Dr. Vargas Serra DO Work Phone: -Emergency Department Work Phone: Start: 10-21-2024 End: 10-21-[address] Vargas Serra DO Work Phone: [facility] Work Phone: Start: 10-21-2024 End: 10-21-[address] Sheyla Cruz MD -Laboratory, [place] Work Phone: Start: 10-21-2024 End: 10-21-2024 ambulatory Sheyla Cruz Facility:[facility] Start: 10-09-2024 ambulatory Jacqueline Mike Facility:[facility] Start: 09-09-2024 End: 09-09-2024 Patient encounter procedure Jacqueline KAPLAN -[facility] Work Phone: Start: 09-09-2024 End: 09-09-2024 ambulatory Vargas Serra [facility] Start: 07-31-2024 End: 07-31-[address] Sheyla Cruz MD -Laboratory, [place] Work Phone: Start: 07-31-2024 End: 07-31-2024 ambulatory Sheyla Cruz Facility:[facility] Start: 07-24-2024 ambulatory Jacqueline Mike [facility] Start: 06-16-2024 End: 06-16-2024 ambulatory VARGAS SERRA Facility:[facility] Start: 06-16-2024 End: 06-16-2024 Patient encounter procedure Dago Mays PA-C Work Phone: [facility] Comment on above: Viral URI with cough (Primary Dx) Start: 05-27-2024 End: 05-27-2024 ambulatory VARGAS SERRA DO Facility[facility] Start: 05-27-2024 End: 05-27-2024 Patient encounter procedure VARGAS SERRA DO [facility] Start: 05-25-2024 End: 05-25-2024 ambulatory Vargas Serra Facility:[facility] Start: 04-27-2024 End: 04-27-2024 ambulatory Sheyla Cruz Facility:[facility] Start: 04-24-2024 End: 04-24-2024 ambulatory Noel Roberts Facility:[facility] Start: 04-18-2024 End: 04-18-2024 ambulatory VARGAS SERRA DO Facility:[facility] Start: 04-18-2024 End: 04-18-2024 Patient encounter procedure VARGAS SERRA DO [facility] Start: 04-17-2024 End: 04-17-2024 ambulatory Vargas Serra Facility:[facility] Start: 04-15-2024 End: 04-16-2024 ambulatory Vargas Serra Facility:[facility] Start: 04-15-2024 End: 04-15-2024 ambulatory Vargas Serra Facility:[facility] Start: 11-14-2023 End: 11-14-[address] Vargas Serra Work Phone: [facility] Work Phone: Start: 11-14-2023 End: 11-14-[address] Vargas Serra Work Phone: [facility] Work Phone: Start: 11-07-2023 End: 11-07-[address] Vargas Serra Work Phone: [facility] Work Phone: Start: 10-24-2023 End: 10-25-2023 ambulatory VARGAS SERRA DO Facility:[facility] Start: 10-21-2023 Telephone encounter Indira Chou cruzrenaldo MEDICATION TECHNICIAN.LEADITE HEATER Work Phone: Neurology Comment on above: Call after 3:30 Start: 10-18-2023 End: 10-18-2023 Emergency department patient visit Dr. Vargas Serra Work Phone: [facility]Emer[facility] Work Phone: Start: 10-15-2023 End: 10-15-[address] Vargas Serra Work Phone: [facility] Work Phone: Start: 10-15-2023 End: 10-15-[address] Vargas Serra Work Phone: [facility] Work Phone: Start: 10-02-2023 End: 10-02-2023 ambulatory INDIRA S DEMOND Facility:[facility] Start: 10-02-2023 End: 10-02-2023 Subsequent hospital visit by physician [facility] Work Phone: Radiology Comment on above: Chronic right-sided low back pain with right-sided sciatica [M54.41, G89.29] Start: 10-01-2023 End: 10-01-2023 Patient encounter procedure Indira Lagos MEDICATION TECHNICIAN.LEADITE HEATER Work Phone: [facility] Comment on above: Chronic right-sided low back pain with right-sided sciatica (Primary Dx) Start: 10-01-2023 End: 10-01-2023 ambulatory INDIRA S DEMOND Facility:[facility] Start: 08-30-2023 Chart abstracting Unk Pcp (Hist) Marty rology Start: 08-22-2023 End: 08-22-[address] Vargas Serra Work Phone: [facility] Work Phone: Start: 08-22-2023 End: 08-22-[address] Vargas Serra Work Phone: [facility] Work Phone: Start: 08-07-2023 End: 08-08-2023 ambulatory RONAK BULL MEDICATION TECHNICIAN-LEADITE HEATER Facility:[facility] Start: 08-07-2023 End: 08-07-2023 Patient encounter procedure RONAK BULL MEDICATION TECHNICIAN-LEADITE HEATER [facility] Start: 07-03-2023 End: 07-04-2023 ambulatory VARGAS SERRA DO Facility:[facility] Start: 07-03-2023 End: 07-03-2023 Patient encounter procedure VARGAS SERRA DO [facility] Start: 06-24-2023 End: 06-24-2023 Admission to same day surgery center Dr. Vargas Serra Work Phone: [facility] Start: 06-24-2023 End: 06-24-[address] Vargas Serra Work Phone: [facility] Work Phone: Start: 06-05-2023 End: 06-05-[address] Vargas Serra Work Phone: [facility] Work Phone: Start: 06-05-2023 End: 06-05-[address] Vargas Serra Work Phone: [facility] Work Phone: Start: 05-28-2023 Non-patient / Non-visit Dr. Gaston Serra Work Phone: [facility] Start: 05-28-2023 End: 05-28-2023 Admission to same day surgery center Dr. Vargas Serra Work Phone: [facility]-End[facility] Work Phone: Start: 05-28-2023 End: 05-28-[address] Vargas Serra Work Phone: [facility] Work Phone: Start: 05-15-2023 End: 05-15-[address] Vargas Serra Work Phone: [facility] Work Phone: Start: 05-15-2023 End: 05-15-[address] Vargas Serra Work Phone: [facility] Work Phone: Start: 05-04-2023 End: 05-05-2023 ambulatory VARGAS SERRA DO Facility:[facility] Start: 05-03-2023 End: 05-03-[address] Vargas Serra Work Phone: [facility] Work Phone: Start: 04-27-2023 Non-patient / Non-visit Dr. Gaston Serra Work Phone: [facility] Start: 04-26-2023 Non-patient / Non-visit Dr. Gaston Serra Work Phone: [facility] Start: 04-25-2023 Non-patient / Non-visit Dr. Gaston Serra Work Phone: [facility] Start: 04-24-2023 Non-patient / Non-visit Dr. Gaston Serra Work Phone: [facility] Start: 04-23-2023 Non-patient / Non-visit Dr. Gaston Serra Work Phone: [facility] Start: 04-23-2023 End: 04-27-2023 Evaluation and management of inpatient Dr. Vargas Serra Work Phone: [facility] Surgical 3 Work Phone: Start: 04-09-2023 End: 04-09-2023 Patient encounter procedure Amberly Deleon APRN.LEADITE HEATER Work Phone: [facility] Comment on above: Poison sita (Primary Dx) Start: 03-29-2023 End: 03-29-2023 Patient encounter procedure Molly Foster APRN.LEADITE HEATER Work Phone: [facility] Comment on above: Allergic contact andreina matitis due to plants, except food (Primary Dx) Start: 02-19-2023 End: 02-19-[address] Vargas Serra Work Phone: [facility] Work Phone: Start: 01-23-2023 End: 01-24-2023 ambulatory VARGAS SERRA DO Facility:[facility] Start: 01-23-2023 End: 01-23-2023 Patient encounter procedure VARGAS SERRA DO [facility] Start: 11-23-2022 End: 11-23-2022 ambulatory [facility] Work Phone: Start: 11-23-2022 End: 11-23-2022 Patient encounter procedure [facility] Start: 10-09-2022 End: 10-09-2022 ambulatory [facility] Work Phone: Start: 10-09-2022 End: 10-09-2022 Discharged Recurring [facility]Physical Therapy Start: 08-27-2022 End: 08-27-2022 ambulatory [facility] Work Phone: Start: 08-27-2022 End: 08-27-2022 Patient encounter procedure [facility] Start: 07-19-2022 End: 07-19-2022 Patient encounter procedure VARGAS Joel MARYSE DO [facility] Start: 06-29-2022 End: 06-29-2022 ambulatory [facility] Work Phone: Start: 06-29-2022 End: 06-29-2022 Patient encounter procedure [facility], [facility] Start: 06-22-2022 End: 06-22-2022 Emergency department patient visit [facility]Emergency Department Start: 06-20-2022 End: 06-20-2022 ambulatory [facility] Work Phone: Start: 06-20-2022 End: 06-20-2022 Discharged Recurring [facility] Start: 06-20-2022 Registered Recurring [facility] Start: 05-30-2022 End: 05-30-2022 Patient encounter procedure [facility] Start: 05-24-2022 End: 05-24-2022 Patient encounter procedure Dago GONZALEZC Work Phone: [facility] Comment on above: Sinobronchitis (Prim lexy Dx) Start: 05-08-2022 Telephone encounter Dago Rogers-C Work Phone: [facility] Comment on above: Results Start: 05-07-2022 End: 05-07-2022 Patient encounter procedure Lizette Darling MEDICATION TECHNICIAN.LEADITE HEATER Work Phone: [facility] Comment on above: URI with cough and c ongestion (Primary Dx) Start: 05-03-2022 End: 05-07-2022 Outreach Lab RONAK FERRISKINSON MEDICATION TECHNICIAN-LEADITE HEATER [facility] Start: 04-23-2022 End: 04-23-2022 ambulatory [facility] Work Phone: Start: 04-23-2022 End: 04-23-2022 [facility] Start: 03-31-2022 End: 03-31-2022 ambulatory [facility] Work Phone: Start: 03-31-2022 End: 03-31-2022 Patient encounter procedure [facility]Laboratory Start: 03-13-2022 End: 03-13-2022 [facility] Start: 12-26-2021 End: 12-26-2021 [facility] Start: 11-01-2021 End: 11-05-2021 Outreach Lab RONAK BULL MEDICATION TECHNICIAN-LEADITE HEATER [facility] Start: 09-20-2021 End: 09-20-2021 Patient encounter procedure [facility] Start: 09-12-2021 End: 09-12-2021 Patient encounter procedure VARGAS SERRA DO [facility] Start: 06-21-2020 End: 06-21-2020 Patient encounter procedure Teto Adhikari MD Work Phone: [facility] Work Phone: Start: 06-21-2020 End: 06-21-2020 Pt evaluation Teto Adhikari MD Work Phone: [facility] Work Phone: Start: 10-11-2017 Physical examination [facility] Start: 02-07-2017 [facility] Procedures Date Procedure Procedure Detail Performing Clinician Start: 01-04-2025 Local anesthetic sac ral epidural block Dr. Vargas Serra DO Work Phone: Start: 06-02-2025 Injection of spinal epidural space Dr. Vargas Serra DO Work Phone: Start: 01-04-2025 Injection using fluoroscopic guidance Dr. Vargas Serra DO Work Phone: Start: 10-22-2024 Hepatitis A virus antibody, IgM type Dr. Vargas Serra DO Work Phone: Comment on above: A negative anti-HAV IgM result suggests no recent orcurrent HAV infection. Start: 10-22-2024 Hepatitis B core ant ibody measurement, IgM type Dr. Vargas Serra DO Work Phone: Comment on above: Performed at: [place] [id number] Director: Cyrus Feng PhD, Phone: [phone] Start: 10-22-2024 Hepatitis C antibody measurement Dr. Vargas Serra DO Work Phone: Comment on above: Reactive: Presumptiv e evidence of antibodies to HCV. Follow CDC recommendations for supplemental testing.Non-Reactive: Antibodies to HCV were not detected; does not exclude the possibility of exposure to HCVReactive Results are presumptive evidence of antibodies to HCV. Follow CDC recommendations for supplemental testing.Order confirmation testing: HCV Quant by PCR testing - HCVPCR #[id number] Non Reactive: < 0.8 Equivocal: >/= 0.8 to < 1.0 Reactive: >/= 1.0The CDC requires that a reactive/equivocal HCV antibody result be sent out for confirmation. HCV Quant by PCR testing. Start: 10-22-2024 PCR test for HIV 1 Dr. Vargas Serra DO Work Phone: Comment on above: HIV-1 RNA not detect edThe reportable range for this assay is 20 to 10,000,000copies HIV-1 RNA/mL. Start: 06-16-2024 STREP A MOLECULAR (POC) [facility] Provider Start: 10-18-2023 CT of abdomen and pe lvis without contrast Dr. Vargas Serra Work Phone: Start: 10-18-2023 Plain chest X-ray Dr. Ceci Serra Work Phone: Start: 10-02-2023 Radex spine lumbosac ral minimum 4 views Indira Lagos APRNJuarezLEADITE HEATER Work Phone: Start: 06-24-[address] Vargas Serra Work Phone: Start: 06-24-2023 Injection of spinal epidural space Dr. Vargas Serra Work Phone: Start: 06-24-2023 X-ray of lumbar spin e, two or three views Dr. Vargas Serra Work Phone: Start: 05-28-[address] Radha Serra Work Phone: Start: 05-15-2023 MRI of lumbar spine Dr. Vargas Serra Work Phone: Start: 04-27-2023 Computed tomography of abdomen and pelvis with intravenous contrast Dr. Vargas Serra Work Phone: Start: 04-24-[address] Vargas Serra Work Phone: Start: 04-24-2023 Investigation of transfusion reaction Dr. Vargas Serra Work Phone: Start: 04-24-2023 Microbial culture, routine Dr. Vargas Serra Work Phone: Start: 04-24-[address] Vargas Serra Work Phone: Start: 04-23-2023 Computed tomography of abdomen and pelvis with intravenous contrast Dr. Vargas Serra Work Phone: Start: 06-29-2022 Plain chest X-ray Start: 06-22-2022 Plain chest X-ray Start: 04-23-2022 X-ray of lumbosacral spine Start: 06-21-2020 End: 06-21-2020 Blood pressure within [...] non-user Teto Adhikari MD Work Phone: Start: 02-23-2015 Lipid 1996 panel - S barrie or Plasma Unk (Hist) Start: 02-02-2014 Mammography Lizette Darling MEDICATION TECHNICIAN.LEADITE HEATER Work Phone: Start: 11-30-2008 Colonoscopy Lizette Darling MEDICATION TECHNICIAN.LEADITE HEATER Work Phone: Decompression of med carmelita nerve VARGAS SERRA DO Excision of cervical intervertebral disc VARGAS SERRA DO Comment on above: C5-6 TITANIUM AND CA DAVER Hysterectomy VARGAS SERRA DO Ligation of fallopian tube Ceci SERRA DO Reduction mammoplasty RADHA SERRA DO SARS-CoV-2 & FLU Ant igen (Rapid) SARS-CoV-2 & FLU Ant igen (Rapid) Structure of eye pro per (body structure) VARGAS SERRA DO Toe structure (body structure) VARGAS SERRA DO Comment on above: 5TH METATARSAL SURGE RY Tonsillectomy VARGAS SERRA DO NEGATED: Highlighted rowStart: 06-21-2020 End: 06-21-2020 Documentation of current medications Milagros Quinones LPN Plan of Treatment Date Care Activity Detail Author Start: 05-14-2034 Urine microalbumin profile DTaP,Tdap,Td Vaccine (2 - Td or Tdap) [facility] Start: 01-04-2025 Anes dx/ther nerve block/injection prone pos ANESTH N BLOCK/INJ PRONE [facility] Start: 01-04-2025 Njx dx/ther sbst int rlmnr lmbr/sac w/img gdn NJX INTERLAMINAR LMBR/SAC [facility] Start: 01-04-2025 Injection of spinal epidural space [facility] Start: 01-04-2025 Injection using fluoroscopic guidance [facility] Start: 01-04-2025 Patient discharge [facility] Start: 10-22-2024 Hepatitis B core ant ibody measurement, IgM type [facility] Start: 10-22-2024 Hepatitis C antibody measurement [facility] Start: 10-22-2024 End: 10-22-2024 [facility] Start: 10-18-2023 [facility] Start: 08-05-2023 Depression Assessment Depression Ass essment [facility] Start: 06-24-2023 Anes dx/ther nerve block/injection prone pos ANESTH N BLOCK/INJ PRONE [facility] Start: 06-24-2023 Njx anes&/strd w/img tfrml edrl lmbr/sac 1 lvl NJX AA&/STRD TFRM EPI L/S 1 [facility] Start: 06-24-2023 Njx anes&/strd w/img tfrml edrl lmbr/sac ea lv NJX AA&/STRD TFRM EPI L/S EA [facility] Start: 06-24-2023 Injection of spinal epidural space [facility] Start: 06-24-2023 X-ray of lumbar spin e, two or three views Lumbar Spine 2 or 3 Views [facility] Start: 06-24-2023 Patient discharge [facility] Start: 05-28-2023 Colonoscopy w/biopsy single/multiple COLONOSCOPY AND BIOPSY [facility] Start: 05-28-2023 Patient discharge [facility] Start: 04-27-2023 Patient discharge [facility] Start: 04-24-2023 Catheterization of vein [facility] Start: 04-24-2023 Vital signs measurements [facility] Start: 04-24-2023 [facility] Start: 04-24-2023 Blood chemistry [facility] Start: 04-24-2023 [facility] Start: 04-23-2023 Application of intermittent pneumatic compression device [facility] Start: 04-23-2023 Following clinical pathway protocol [facility] Start: 04-23-2023 Incentive spirometry [facility] Start: 04-23-2023 End: 04-24-2023 [facility] Start: 04-23-2023 Admission procedure [facility] Start: 04-05-2023 Influenza vaccination INFLUENZA (#1) [facility] Start: 08-05-2022 DEPRESSION ASSESSMENT DEPRESSION ASS ESSMENT [facility] Start: 06-22-2022 [facility] Start: 05-07-2022 End: 05-21-2022 SARS-CoV-2 (COVID-19) RNA [Presence] in Respiratory specimen by KERRY with probe detection [facility] Work Phone: Comment on above: Expected: 05/07/2022 , Expires: 05/21/2022 Start: 04-05-2022 Influenza vaccination INFLUENZA (#1) [facility] Start: 08-05-2021 DEPRESSION ASSESSMENT DEPRESSION ASS ESSMENT [facility] Start: 07-14-2020 End: 07-14-2020 Appointment Appointment [facility] Work Phone: Start: 07-07-2020 End: 07-07-2020 Appointment Appointment [facility] Work Phone: Start: 06-21-2020 End: 06-21-2020 Appointment [facility] Work Phone: Start: 06-21-2020 End: 06-21-2020 Mri spinal canal cervical w/o contrast matrl MRI cervical without contrast [facility] Work Phone: Start: 02-24-2020 Lipid panel Lipid Screening [facility] Start: 02-24-2020 LIPID SCREEN LIPID SCREEN [facility] Start: 02-16-2019 PAP TESTING PAP TESTING [facility] Start: 02-16-2019 Screening for malign ant neoplasm of cervix Pap Testing [facility] Start: 02-23-2018 DIABETES SCREEN DIABETES SCREEN [facility] Start: 02-23-2018 Diabetes Screening Diabetes Screenin g [facility] Start: 2015 COLOGUARD (FIT-DNA) COLOGUARD (FIT-D NA) [facility] Start: 2015 Colonoscopy COLONOSCOPY [facility] Start: 2015 COLORECTAL CANCER SCREENING COLORECTAL CANCER SCREENING [facility] Start: [address] COLONOGRAPHY [facility] Start: 2015 FECAL OCCULT BLOOD FECAL OCCULT BLOO D [facility] Start: 2015 Screening for malign ant neoplasm of colon [facility] Start: 2015 SIGMOIDOSCOPY SIGMOIDOSCOPY [facility] Start: 02-16-2015 Screening for malign ant neoplasm of cervix Cervical Cancer Screening [facility] Start: 02-02-2015 Mammography MAMMOGRAM [facility] Start: 02-02-2015 Screening for malign ant neoplasm of breast Mammogram Screening [facility] Start: 2000 HPV TESTING HPV TESTING [facility] Start: 2000 Screening for malign ant neoplasm of cervix HPV Testing [facility] Start: 1989 Hepatitis B Vaccine (1 of 3 - 19+ 3-dose series) Hepatitis B Vaccine (1 of 3 - 19+ 3-dose series) [facility] Start: 1989 SHINGRIX VACCINE (1 of 2) GRACE GRIX VACCINE (1 of 2) [facility] Start: 1989 Urine microalbumin profile [facility] Start: 1988 ANNUAL PCP TEAM AUDIO VIDEO TECH IVELISSE DISEASE VISIT ANNUAL PCP TEAM CHRONIC DISEASE VISIT [facility] Start: 1988 Anxiety Screening Anxiety Screening [facility] Start: 1988 Depression Screening Depression Scre ening [facility] Start: 1988 HEPATITIS C SCREENING HEPATITIS C [facility] Start: 1988 Hepatitis C screening Hepatitis C [facility] Start: 1988 HIV SCREENING HIV SCREENING [facility] Start: 1988 HIV screening HIV Screening [facility] Start: 1976 PNEUMOCOCCAL (1 - PCV) PNEUMOCOCCAL (1 - PCV) [facility] Start: 1976 Pneumococcal vaccination Pneum ococcal Vaccine (1 of 2 - PCV) [facility] Start: 1975 COVID-19 VACCINE (#1) COVID-19 VACCI NE (#1) [facility] Start: 1970 COVID-19 VACCINE (#1) COVID-19 VACCI NE (#1) [facility] Start: 1970 HEPATITIS B (1 of 3 - 3-dose series) HEPATITIS B (1 of 3 - 3-dose series) [facility] Start: 1970 Hepatitis B Vaccine (1 of 3 - 3-dose series) Hepatitis B Vaccine (1 of 3 - 3-dose series) [facility] Anion gap measurement [facility] Bilirubin measuremen t, urine [facility] Bilirubin measuremen t, urine [facility] BUN/Creatinine ratio [facility] Calcium [Mass/volume ] in Serum or Plasma [facility] Carbon dioxide, tota l [Moles/volume] in Serum or Plasma [facility] Chloride [Moles/volu me] in Serum or Plasma [facility] Colonoscopy [facility] Creatinine [Moles/vo lume] in Serum or Plasma [facility] Glucose [Mass/volume ] in Serum or Plasma [facility] Hematocrit [Volume Fraction] of Blood [facility] Hemoglobin [Mass/vol ume] in Blood [facility] Hemoglobin [Presence ] in Urine [facility] Hemoglobin [Presence ] in Urine [facility] Hepatitis A virus Ig M Ab [Presence] in Serum [facility] Hepatitis B virus perez rface Ab [Presence] in Serum [facility] Hepatitis B virus perez rface Ag [Presence] in Serum [facility] HIV 1 RNA [#/volume] (viral load) in Unspecified specimen by KERRY with probe detection [facility] HIV 1 RNA [Log #/vol ume] (viral load) in Unspecified specimen by KERRY with probe detection [facility] In-vitro immunologic test [facility] Work Phone: Leukocytes [#/volume ] in Blood [facility] Magnesium [Mass/volu me] in Serum or Plasma [facility] Mean corpuscular hemoglobin concentration determination [facility] Mean corpuscular hemoglobin determination [facility] Measurement of keton es in urine using dipstick [facility] Measurement of keton es in urine using dipstick [facility] Measurement of renal function [facility] Microscopic urinalysis [facility] Mycobacterium tuberculosis tuberculin stimulated gamma interferon [Presence] in Blood [facility] Work Phone: Neutrophil count [facility] Neutrophil percent differential count [facility] Patient Education [facility] Work Phone: Patient referral [facility] Work Phone: pH of Urine [facility] pH of Urine [facility] Platelets [#/volume] in Blood [facility] Potassium [Moles/vol ume] in Serum or Plasma [facility] Red blood cell count [facility] Red cell distributio n width determination [facility] Sodium [Moles/volume ] in Serum or Plasma [facility] Specific gravity of Urine [facility] Specific gravity of Urine [facility] Urea nitrogen [Mass/volume] in Serum or Plasma [facility] Urinalysis, blood, qualitative [facility] Urine dipstick for glucose [facility] Urine dipstick for glucose [facility] Urine dipstick for leukocyte esterase [facility] Urine dipstick for leukocyte esterase [facility] Urine dipstick for nitrite [facility] Urine dipstick for nitrite [facility] Urine dipstick for protein [facility] Urine dipstick for protein [facility] Urine examination [facility] Urine examination [facility] Urine microscopy: epithelial cells [facility] Urine Microscopy: wh ite cells [facility] Urobilinogen [Presen ce] in Urine [facility] Urobilinogen [Presen ce] in Urine [facility] US.doppler Lower extremity vessels [facility] End: 10-30-2024 XR Lumbar spine Views W flexion and W extension XR LUMBAR MOTION 4V AP/LAT/ FLEX/EXT Radiology Routine Chronic right-sided low back pain with right-sided sciatica 1 Occurrences starting 10/01/2023 until 10/30/2024 [facility] Work Phone: Comment on above: 1 Occurrences starti ng 10/01/2023 until 10/30/2024 [facility] Immunizations Immunization Date Immunization Notes Care Provider Lily guzman 10-22-2024 tetanus toxoid, redu bulmaro diphtheria toxoid, and acellular pertussis vaccine, adsorbed Dr. 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 05-14-2024 tetanus toxoid, redu bulmaro diphtheria toxoid, and acellular pertussis vaccine, adsorbed; Translations: [Boostrix (Tdap)] VARGAS SERRA DO [facility] 05-14-2024 influenza, injectabl e, quadrivalent, contains preservative; Translations: [Fluarix PF Prefilled Syringe ] VARGAS SERRA DO [facility] 05-08-2023 influenza, injectabl e, quadrivalent, contains preservative; Translations: [Fluarix PF Quadrivalent ] VARGAS SERRA DO [facility] 06-04-2022 influenza, injectabl e, quadrivalent, contains preservative; Translations: [Fluarix PF Quadrivalent ] VARGAS SERRA DO [facility] 06-30-2021 influenza, injectabl e, quadrivalent, contains preservative; Translations: [Fluarix PF Quadrivalent ] VARGAS SERRA DO [facility] 06-08-2020 influenza, injectabl e, quadrivalent, preservative free; Translations: [Fluarix PF Quadrivalent ] VARGAS SERRA DO [facility] 06-03-2017 Influenza virus vaccine [facility] 05-06-2017 influenza virus vaccine, unspecified formulation VARGAS SERRA DO [facility] 05-05-2015 influenza virus vaccine, unspecified formulation VARGAS SERRA DO [facility] 05-05-2014 influenza virus vaccine, unspecified formulation VARGAS SERRA DO [facility] Payers Date Payer Category Payer Unknown [id number] 2024 Self-pay [id number] 2022 Private Health Insurance [facility] [id number] 2020 Unknown 2012 Unknown [id number] 1970 Unknown [id number] 2.16.8 40.1.399964.3.579.2.627 1970 Unknown [id number] 2.16.8 40.1.276539.3.579.2.627 1970 Unknown [id number] 2.16.8 40.1.343614.3.579.2.627 1970 Unknown [id number] 2.16.8 40.1.548511.3.579.2.627 1970 Unknown [id number] 2.16.8 40.1.891475.3.579.2.627 1970 Unknown [id number] 2.16. 840.1.502079.3.579.2.627 1970 Unknown [id number] 2.16.8 40.1.454517.3.579.2.627 1970 Unknown [id number] 2.16.8 40.1.893504.3.579.2.62 1970 Unknown [id number] 2.16.8 40.1.643586.3.579.2.7 1970 Unknown [id number] 2.16.8 40.1.173515.3.579.2.627 Unknown [id number] 2.16.8 40.1.414534.3.579.2.462 Unknown [id number] 2.16.8 40.1.264734.3.579.2.462 Unknown [id number] 2.16.8 40.1.402986.3.579.2.462 Unknown [id number] 2.16.8 40.1.018737.3.579.2.462 Unknown [id number] 2.16.8 40.1.966986.3.579.2.462 Unknown [id number] 2.16.8 40.1.716359.3.579.2.462 Unknown [id number] 2.16.8 40.1.814832.3.579.2.462 Unknown [id number] 2.16.8 40.1.010543.3.579.2.462 Unknown [id number] 2.16.8 40.1.076721.3.579.2.462 Unknown [id number] 2.16.8 40.1.132215.3.579.2.462 Unknown [id number] 2.16.8 40.1.891509.3.579.2.462 Unknown [id number] 2.16.8 40.1.035948.3.579.2.462 Unknown [id number] 2.16.8 40.1.516225.3.579.2.462 Unknown [id number] 2.16.8 40.1.521109.3.579.2.462 Unknown [id number] 2.16.8 40.1.335985.3.579.2.462 Social History Date Type Detail Facility Start: 03-13-2021 End: 11-07-2023 Assertion Unknown if ever smoked [facility] Work Phone: Start: 01-10-2021 End: 12-30-2024 Ex-smoker (finding) [facility] Comment on above: recently started baylee k up smoking occasionally d/t stress. Start: 1970 Sex Assigned At Female A [facility] Start: 07-04-2019 None [facility] Start: 12-05-2017 Cigarettes [facility] Start: 05-07-2022 Tobacco smoking stat us [facility] Never smoked tobacco [facility] Start: 05-07-2022 Tobacco use and exposure Smokeless tobacco non-user [facility] Start: 05-07-2022 End: 06-16-2024 Alcohol intake Current non-drinker of alcohol (finding) [facility] Start: 1970 Sex Assigned At Not on file [facility] Start: 03-29-2023 End: 10-01-2023 History of Social function [facility] Start: 03-29-2023 End: 10-01-2023 Tobacco use panel [facility] National Score (1-100), lower number is lower risk Not on file [facility] Start: 09-30-2019 End: 10-22-2024 Sex Female (finding) [facility] Sexual Orientation [facility] NEGATED: Highlighted row [facility] Medical Equipment Procedure Code Equipment Code Equipment Origin al Text Equipment Identifier Dates YANELY 3GRM HEMO STAT ABS FDA Start: 12-04-2017 YANELY 3GRM HEMO STAT ABS FDA Start: 12-04-2017 YANELY 3GRM HEMO STAT ABS FDA Start: 12-04-2017 YANELY 3GRM HEMO STAT ABS FDA Start: 12-04-2017 YANELY 3GRM HEMO STAT ABS FDA Start: 12-04-2017 YANELY 3GRM HEMO STAT ABS FDA Start: 12-04-2017 YANELY 3GRM HEMO STAT ABS FDA Start: 12-04-2017 YANELY 3GRM HEMO STAT ABS FDA Start: 12-04-2017 YANELY 3GRM HEMO STAT ABS FDA Start: 12-04-2017 YANELY 3GRM HEMO STAT ABS FDA Start: 12-04-2017 YANELY 3GRM HEMO STAT ABS FDA Start: 12-04-2017 YANELY 3GRM HEMO STAT ABS FDA Start: 12-04-2017 YANELY 3GRM HEMO STAT ABS FDA Start: 12-04-2017 YANELY 3GRM HEMO STAT ABS FDA Start: 12-04-2017 YANELY 3GRM HEMO STAT ABS FDA Start: 12-04-2017 YANELY 3GRM HEMO STAT ABS FDA Start: 12-04-2017 YANELY 3GRM HEMO STAT ABS FDA Start: 12-04-2017 YANELY 3GRM HEMO STAT ABS FDA Start: 12-04-2017 YANELY 3GRM HEMO STAT ABS FDA Start: 12-04-2017 YANELY 3GRM HEMO STAT ABS FDA Start: 12-04-2017 YANELY 3GRM HEMO STAT ABS FDA Start: 12-04-2017 YANELY 3GRM HEMO STAT ABS FDA Start: 12-04-2017 YANELY 3GRM HEMO STAT ABS FDA Start: 12-04-2017 Goals Date Patient Goal Desired Activity /State Functional Status Date Assessment Result Facility 04-27-2023 Functional status Ambulates;Up a d arjun;Chair;Bathroom Privilege;Active [employer] [facility] Work Phone: Mental Status Date Assessment Result Facility 01-04-2025 Cognitive function Voice/Name [facility] Work Phone: 10-22-2024 Cognitive function Level Of Cons ciousness Awake;Alert;Appropriate;Follow s Commands [facility] Work Phone: 06-24-2023 Cognitive function Voice/Name [facility] Work Phone: 05-28-2023 Cognitive function Voice/Name [facility] Work Phone: 04-26-2023 Cognitive function Voice/Name [facility] Work Phone: 06-22-2022 Cognitive function Level Of Cons ciousness Awake;Alert;Appropriate [facility] Work Phone: Clinical Notes 03-17-2012 to 01-04-2025 Radiology Note Date & Type Note Facility 01-04-2025 Consult note [facility] 01-04-2025 Procedure note [facility] 01-04-2025 Consult note [facility] 12-24-2024 Evaluation + Plan note Diagnostic Tests PendingCandida/Trichomonas Vaginitis PCR Screen 12/24/24Bacterial Vaginosis PCR Screen 12/24/24 Future Scheduled TestsMA Mammo Screening Bilateral w/ Abdirizak 12/24/24 [facility] 10-22-2024 Discharge summary [facility] 09-09-2024 Evaluation note Diagnosis Onset Date Resolution Symptomatic varicose veins acute September 09 3:23pm [facility] Work Phone: 1(580) 173-174311-12-2024 NoteHNO ID: [id number] Author: DAGO MAYS PA-C Service: ? Author Type: Physician Rate Analyst Type: Progress Notes Filed: 06/16/2024 16:35 Note Text: This note was created using NoteWriter. Subjective Erlinda Zapata is a 54 year old female. HPI Patient presents with cough, hoarse voice and sore throat over the past 2 days. No fever. She has had some bodyaches. No vomiting or diarrhea. Denies chest pain or shortness of breath. No history of asthma. No wheezing. Review of Systems Constitutional: Positive for fatigue. Negative for fever. HENT: Positive for congestion, ear pain, sore throat and voice change. Respiratory: Positive for cough. Negative for shortness of breath and wheezing. Musculoskeletal: Positive for myalgias. All other systems reviewed and are negative. PAST MEDICAL HISTORY Diagnosis Date Acute gastritis without mention of hemorrhage Diaphragmatic hernia without mention of obstruction or gangrene Diarrhea Heartburn Rheumatoid arthritis(714.0) Unspecified asthma(493.90) Unspecified constipation Unspecified hypothyroidism Current Outpatient Medications Medication Sig Dispense Refill liothyronine (CYTOMEL) 5 mcg tablet Take 1 tablet by mouth once daily. FOLIC ACID ORAL Take by mouth. leucovorin (LEUCOVORIN) 15 mg tablet levothyroxine (SYNTHROID) 112 mcg tablet Take 112 mcg by mouth once daily. methotrexate sodium (TREXALL) 5 mg tablet Not sure dose: takes 5 tabs once a week omeprazole(PRILOSEC 20 MG CAP) Take one(1) capsule daily. 0 Estradiol (ESTRACE) 0.5 mg tablet Take 1 tablet by mouth every afternoon. (Patient not taking: Reported on 06/16/2024) XELJANZ XR 11 mg tablet, extended release (Patient not taking: Reported on 06/16/2024) No current facility-administered medications for this visit. [...] BREAST 2006 Breast reduction TONSILLECTOMY PRIMARY/SECONDARY Tonsillectomy FAMILY HISTORY Problem Relation Age of Onset Hypertension Mother None Father Diabetes Paternal Grandmother other (PSORIASIS) Paternal Grandmother Social History Tobacco Use Smoking status: Never Smokeless tobacco: Never Substance Use Topics Alcohol use: No Drug use: No Objective BP 131/86 Pulse 84 Temp 36.4 ?C (97.6 ?F) Resp 18 Wt 95.3 kg (210 lb 1.6 oz) LMP 08/12/2016 SpO2 99% BMI 31.48 kg/m? Physical Exam Vitals reviewed. Constitutional: Appearance: Normal appearance. HENT: Head: Normocephalic and atraumatic. Right Ear: Tympanic membrane, ear canal and external ear normal. Left Ear: Tympanic membrane, ear canal and external ear normal. Nose: Nose normal. Mouth/Throat: Mouth: Mucous membranes are moist. Pharynx: Uvula midline. Posterior oropharyngeal erythema present. No pharyngeal swelling, oropharyngeal exudate or uvula swelling. Tonsils: No tonsillar exudate. Cardiovascular: Rate and Rhythm: Normal rate and regular rhythm. Heart sounds: Normal heart sounds. Pulmonary: Effort: Pulmonary effort is normal. Breath sounds: Normal breath sounds. Musculoskeletal: Cervical back: Neck supple. Lymphadenopathy: Cervical: No cervical adenopathy. Skin: General: Skin is warm and dry. Neurological: Mental Status: She is alert. Assessment and Plan ASSESSMENT/PLAN: 1. Viral URI with cough - ICD9: 465.9, ICD10: J06.9 - Discussed viral etiology and rationale for treatment. - Symptomatic treatment with prn analgesia - Supportive care with fluids and rest - The patient may also use OTC cough and cold meds as needed. - Follow up in 3-5 days if symptoms persist or sooner if worsening of symptoms - strep test negative [facility]11-12-2024 History of Present illness Narrative* Dago Mays PA- - 06/16/2024 4:33 PM EST This note was created using ViViFiriter. Subjective Erlinda Zapata is a 54 year old female. HPI Patient presents with cough, hoarse voice and sore throat over the past 2 days. No fever. She has had some bodyaches. No vomiting or diarrhea. Denies chest pain or shortness of breath. No history of asthma. No wheezing. Review of Systems Constitutional: Positive for fatigue. Negative for fever. HENT: Positive for congestion, ear pain, sore throat and voice change. Respiratory: Positive for cough. Negative for shortness of breath and wheezing. Musculoskeletal: Positive for myalgias. All other systems reviewed and are negative. PAST MEDICAL HISTORY Diagnosis Date Acute gastritis without mention of hemorrhage Diaphragmatic hernia without mention of obstruction or gangrene Diarrhea Heartburn Rheumatoid arthritis(714.0) Unspecified asthma(493.90) Unspecified constipation Unspecified hypothyroidism Current Outpatient Medications Medication Sig Dispense Refill liothyronine (CYTOMEL) 5 mcg tablet Take 1 tablet by mouth once daily. FOLIC ACID ORAL Take by mouth. leucovorin (LEUCOVORIN) 15 mg tablet levothyroxine (SYNTHROID) 112 mcg tablet Take 112 mcg by mouth once daily. methotrexate sodium (TREXALL) 5 mg tablet Not sure dose: takes 5 tabs once a week omeprazole(PRILOSEC 20 MG CAP) Take one(1) capsule daily. 0 Estradiol (ESTRACE) 0.5 mg tablet Take 1 tablet by mouth every afternoon. (Patient not taking: Reported on 06/16/2024) XELJANZ XR 11 mg tablet, extended release (Patient not taking: Reported on 06/16/2024) No current facility-administered medications for this visit. [...] use: No Drug use: No Objective BP 131/86 Pulse 84 Temp 36.4 C (97.6 F) Resp 18 Wt 95.3 kg (210 lb 1.6 oz) LMP 08/12/2016 SpO2 99% BMI 31.48 kg/m Physical Exam Vitals reviewed. Constitutional: Appearance: Normal appearance. HENT: Head: Normocephalic and atraumatic. Right Ear: Tympanic membrane, ear canal and external ear normal. Left Ear: Tympanic membrane, ear canal and external ear normal. Nose: Nose normal. Mouth/Throat: Mouth: Mucous membranes are moist. Pharynx: Uvula midline. Posterior oropharyngeal erythema present. No pharyngeal swelling, oropharyngeal exudate or uvula swelling. Tonsils: No tonsillar exudate. Cardiovascular: Rate and Rhythm: Normal rate and regular rhythm. Heart sounds: Normal heart sounds. Pulmonary: Effort: Pulmonary effort is normal. Breath sounds: Normal breath sounds. Musculoskeletal: Cervical back: Neck supple. Lymphadenopathy: Cervical: No cervical adenopathy. Skin: General: Skin is warm and dry. Neurological: Mental Status: She is alert. Assessment and Plan ASSESSMENT/PLAN: 1. Viral URI with cough - ICD9: 465.9, ICD10: J06.9 - Discussed viral etiology and rationale for treatment. - Symptomatic treatment with prn analgesia - Supportive care with fluids and rest - The patient may also use OTC cough and cold meds as needed. - Follow up in 3-5 days if symptoms persist or sooner if worsening of symptoms - strep test negative Dago Mays PA-C documented [facility]2024 [facility] Medical Records Department [address] [place] [id number] History Physical Exam 06/09/24 1439 MR#: [id number] Acct: [id number] Name: ERLINDA ZAPATA TOAN Rep #: [id number] : 1970 54 From: Heron Xiao MD PCP: Dr. Vargas Serra, DO Status:[facility] Location: [facility] History and Physical Date of Admission: 05/25/24 Chief Complaint: Pain in upper to lower back , right hip, and right leg. History of Present Illness: This is a 54 Y/O female who was seen and evaluated at our office today as a follow up. Pain: low back, right hip, right leg Quality: dull ache , occasional sharp pain, tingling, numbness Region: Reports pain in right lower back into the right hip and down the right leg Severity: intermittent Timing: on going Aggravated by: lifting at work, sitting, bending, laying on right side Relieved by: nothing specific Pain score (out of 10): 9/10 Other info: Patient is here for a follow up. Reports pain in the upper to lower back that radiates into the right buttock, hip and leg. States her pain is constant . States pain ranges from a dull ache to sharp /stabbing. Reports numbness/ tingling down the right leg . States she has taken 6 tylenol extra strength today. Denies falls. Denies issues with bowels or bladder. Review of Systems: Patient denies any fever, chills, headache, change in weight without trying, vision or hearing problems. No cp, sob, pozo, pnd, orthopnea, or peripheral edema. They note no lumps or swollen glands, no new rashes, changing moles.Mood has been frustrated Past Medical History: h/o Diverticulitis h/o rheumatoid arthritis h/o fibromyalgia h/o GERD h/o hypothyroid h/o goiter h/o headache h/o ulcers h/o osteoarthritis s/p breast surgery (reduction) 2004 s/p jonah carpal tunnel release 2004 s/p lt fifth metatarsal ft sx 2009 s/p hysterectomy s/p lt shoulder sx 2014 s/p tonsillectomy 1979 s/p tubal ligation 1992 Family History: ======== Structured Family History ======== Father: Stroke, Hypertension, Heart disease Mother: Hypertension, Heart disease Grandparent: Stroke, Heart disease, Diabetes mellitus Social History: [Tobacco: Former smoker (0 pk yrs / 0 yrs quit) Start Date: 03/31/2019 End Date: 03/31/2019 Pipe Smoker: No Cigar Smoker: No Chewing Tobacco User: No Electronic Cigarette User: No] Living situation: Occupation: [employer] Tobacco: former (occasional) EtOH: Occasional Rec. drugs: Denies Allergies: Rocephin, Percocet 5/325 Medications: 1) folic acid 1 mg tablet, Take 2 tablets by mouth 2 times a Day 2) levothyroxine 112 mcg tablet, Take 1 tablet by mouth once daily 3) liothyronine 5 mcg tablet, Take 1 tablet by mouth once daily 4) methotrexate sodium 2.5 mg tablet, 6 tablets po once a week. 5) omeprazole 20 mg capsule,delayed release, Take 1 tablet by mouth once daily 6) Tylenol Extra Strength 500 mg tablet, PRN Physical Examination: Wt: 215.2 lb Ht/Ln: 68.5 in BMI: 32.2 BP: 149/77 Pulse: 79 RR: 16 Temp: 97.4F Pain: 9 Well nourished and well developed in no acute distress. Alert and oriented to person, place and time. Affect is normal and appropriate. Mucosa pink and moist. Respirations even and unlabored. No conversaitonal shortness of breath or cough. Neck is supple without significant lymphadenopathy or thyromegaly. Abdomen soft non-tender. No HSM or masses appreciated. Extremities show no cyanosis, clubbing, or edema. Gait is antalgic without assistance device. Lumbar paraspinal muscle tenderness bilaterally. Lumbar ROM is limited with flexion and lateral motion left and right. Bilateral lumbar facet loading is positive Positive SLR from seated position bilaterally. Negative JED test bilaterally. 4/5 lower extremity muscle strength Motor and sensory exam is unchanged. 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 (Transmitted by Nessa Luis APRN, AIR ANTISUBMARINE OFFICER) PRESCRIBE: baclofen 10 mg tablet, take 1/2 to 1 tablet PO TID, as needed for spasms, # 30, RF: 0. (Transmitted by Nessa Luis APRN, AIR ANTISUBMARINE OFFICER) Continue current medication regimen. OARRS was reviewed today. UDS was reviewed, inconsistent in the past, which led to stopped opioid therapy by this office. SOAPP score is 7 MRI of the lumbar spine was reviewed with the pt today and they appear to understand. Pt to see her PCP. There are no signs of diversion or addiction with the pt, there is also no signs o (more content not included)...[facility]03-19-2024 Miscellaneous Notes* Telephone Encounter - Indira Lagos APRN.CNP - 10/22/2023 4:21 PM EDT XR with no spondylolisthesis, no instability. MRI images were previously reviewed with no neural compression. No role for surgery Recommend [facility]. Order placed. Call to pt. She has ongoing pain sx. Reviewed above. She will consider scheduled with [facility] in the future. Indira Lagos CNP * Telephone Encounter - Monica Patel - 10/21/2023 4:46 PM EDT Emily the advocate at [facility] for Erlinda is calling. She is asking the PILE TRIMMER to Please call Erlinda after 3:30 with the results. documented in this encounterDo[facility]02-28-[facility]24 History of Present illness Narrative* Lizett Myles RT(R) - 10/02/2023 11:30 AM EST Radiology Service Progress Note PATIENT NAME: Erlinda Atkins DATE OF SERVICE: October 02, 2023 TIME: 11:41 AM PATIENT IDENTITY VERIFICATION COMPLETED USING TWO (2) IDENTIFIERS: Name and Date of confirmedby patient verbally. FALL SCREENING: Has the patient had 2 falls in the last year or 1 fall with injury or currently using an Ambulatory Assistive Device (Walker, Cane, Wheelchair, Crutches, etc.)? No PATIENT GENDER DATA: Female. status: : No status: NO. PATIENT RELEVANT IMPLANT DATA REVIEWED: Not Applicable PATIENT PRESENTS WITH AN IMPLANTABLE OR ATTACHED PRACTICE PROFESSIONAL: No RADIOLOGY DEPARTMENT: General X-ray: Exam(s) Completed: Spine X-Ray(s): Lumbar AP / LAT / L5-S1 / FLEX-EXT L5-S1 not done PERIPHERAL IV DATA: Not applicable SIGNED BY: RT Elisa(R) October 02, 2023 11:41 AM documented in this encounterDoctors Hospital02-28-2024 NoteHNO ID: [id number] Author: LIZETT MYLES RT(R) Service: ? Author Type: Technologist Type: Progress Notes Filed: 10/02/2023 11:53 Note Text: Radiology Service Progress Note PATIENT NAME: Erlinda Atkins DATE OF SERVICE: October 02, 2023 TIME: 11:41 AM PATIENT IDENTITY VERIFICATION COMPLETED USING TWO (2) IDENTIFIERS: Name and Date of confirmed by patient verbally. FALL SCREENING: Has the patient had 2 falls in the last year or 1 fall with injury or currently using an Ambulatory Assistive Device (Walker, Cane, Wheelchair, Crutches, etc.)? No PATIENT GENDER DATA: Female. status: : No status: NO. PATIENT RELEVANT IMPLANT DATA REVIEWED: Not Applicable PATIENT PRESENTS WITH AN IMPLANTABLE OR ATTACHED PRACTICE PROFESSIONAL: No RADIOLOGY DEPARTMENT: General X-ray: Exam(s) Completed: Spine X-Ray(s): Lumbar AP / LAT / L5-S1 / FLEX-EXT L5-S1 not done PERIPHERAL IV DATA: Not applicable SIGNED BY: RT Elisa(R) October 02, 2023 11:41 [facility]02-27-2024 NoteHNO ID: [id number] Author: INDIRA LAGOS APRN.GUMARO Service: ? Author Type: Nurse Practitioner Type: Progress Notes Filed: 10/01/2023 14:39 Note Text: SPINE SURGERY NEW PATIENT This is an in person visit DATE OF SERVICE: October 01, 2023 This is an in-person visit. REFERRING PROVIDER: SELF SUBJECTIVE HISTORY OF PRESENT ILLNESS: Erlinda Atkins is a 53 year old female presenting alone. CHIEF COMPLAINT: back pain DURATION OF SYMPTOMS: > 10 years Chronic back pain, RLE pain, RLE numbness Reports surgery was recommended by the provider was out of network Limited benefit with PT, aqua therapy PAIN EVALUATION 10/01/2023 1230 Pain Level: 10 Pain Location: Back-Lower Pain starts in R lower pback and raidiates down leg Description: Aching;Dull;Sharp;Burning;Tingling;Numbness Duration Amount of Time: 10 Duration Units: Years Frequency: Continuous Pain Radiation: right sided low back, right lateral hip, right lateral thigh - no pain below the knee - no left sided pain Aggravating Factors: Standing, Walking Pain Ratio: Pain in the back is greater than in the leg Subjective weakness: Yes - RLE Numbness/tingling: Yes -right lateral thigh; negative BUE Imbalance: Yes Falls: Yes - tripped over hole in the pavement Fine motor impairment: Yes - can drop things chronically, hands cramp when I write Hx of hypothyroid Hx of fibromyalgia Hx RA Employment status: works at [x+1] PREVIOUS CONSERVATIVE TREATMENTS: Physical therapy: Fall 2022 Injections - 06/2023 right multilevel lower lumbosacral TFESI with one week of benefit - previously injections in years past NSAIDs: Aleve; Advil Tylenol ACTIVE PROBLEM LIST Nontoxic Uninodular Goiter Acquired Keratoderma Hypothyroidism Diarrhea Rheumatoid Arthritis (Hcc) Flatulence, Eructation, and Gas Pain Diaphragmatic Hernia Without Mention of Obstruction Or Gangrene Ptosis of Both Eyelids Dermatochalasis of Both Upper Eyelids PAST MEDICAL HISTORY Diagnosis Date Acute gastritis [...] BREAST 2006 Breast reduction TONSILLECTOMY PRIMARY/SECONDARY Tonsillectomy Social History Tobacco Use Smoking status: Never Smokeless tobacco: Never Substance Use Topics Alcohol use: No Drug use: No ALLERGIES Allergen Reactions Oxycodone GI Upset Rocephin [Ceftriaxo* Hives MEDICATIONS: liothyronine (CYTOMEL) 5 mcg tablet Take 1 tablet by mouth once daily. Estradiol (ESTRACE) 0.5 mg tablet Take 1 tablet by mouth every afternoon. FOLIC ACID ORAL Take by mouth. leucovorin (LEUCOVORIN) 15 mg tablet levothyroxine (SYNTHROID) 112 mcg tablet Take 112 mcg by mouth once daily. methotrexate sodium (TREXALL) 5 mg tablet Not sure dose: takes 5 tabs once a week omeprazole(PRILOSEC 20 MG CAP) Take one(1) capsule daily. XELJANZ XR 11 mg tablet, extended release OBJECTIVE: PHYSICAL EXAM BP 139/80 Pulse 77 Ht 174 cm (5' 8.5) Wt 94.7 kg (208 lb 12.4 oz) LMP 08/12/2016 SpO2 96% BMI 31.28 kg/m? GENERAL APPEARANCE: Well nourished, well developed, and no apparent distress. NEURO PSYCH: Patient oriented to person, place, and time. Mood pleasant. Benign affect. MOTOR: 5/5 in all muscle groups. GAIT: Normal. Heel walk, toe walk, duck walk and jump with good strength. REFLEXES: Biceps Right: 1+, Left: 1+., Brachioradialis Right: 1+, Left: 1+., Knee jerk Right: 2+, Left: 2+. LONG TRACT SIGNS: No clonus. No Hoffmans. DATA REVIEW [facility] records independently reviewed Images independently reviewed with the patient ASSESSMENT/PLAN M54.41, G89.29 Chronic right-sided low back pain with right-sided sciatica (primary encounter diagnosis) Erlinda Atkins is a 53 year old female with CC of chronic right sided low back > right L5 pain/numbness. MRI lumbar spine with facet arthropathy without neural compression Erlinda Atkins is not a candidate for surgery at this time. Based on MRI, no indication for surgery Imaging: Lumbar X-Ray - I will call with impression. XR to assess for spondy Follow up: TBD Future consideration discussed: referral to [facility] if XR unremarkable I spent a total of 45 mi (more content not included)...[facility]02-27-2024 History of Present illness Narrative* Indira Lagos APRN.LEADITE HEATER - 10/01/2023 1:49 PM EST Images from the original note were not included. SPINE SURGERY NEW PATIENT This is an in person visit DATE OF SERVICE: October 01, 2023 This is an in-person visit. REFERRING PROVIDER: SELF SUBJECTIVE HISTORY OF PRESENT ILLNESS: Erlinda Atkins is a 53 year old female presenting alone. CHIEF COMPLAINT: back pain DURATION OF SYMPTOMS: > 10 years Chronic back pain, RLE pain, RLE numbness Reports surgery was recommended by the provider was out of network Limited benefit with PT, aqua therapy PAIN EVALUATION 10/01/2023 1230 Pain Level: 10 Pain Location: Back-Lower Pain starts in R lower pback and raidiates down leg Description: Aching;Dull;Sharp;Burning;Tingling;Numbness Duration Amount of Time: 10 Duration Units: Years Frequency: Continuous Pain Radiation: right sided low back, right lateral hip, right lateral thigh - no pain below the knee - no left sided pain Aggravating Factors: Standing, Walking Pain Ratio: Pain in the back is greater than in the leg Subjective weakness: Yes - RLE Numbness/tingling: Yes -right lateral thigh; negative BUE Imbalance: Yes Falls: Yes - tripped over hole in the pavement Fine motor impairment: Yes - can drop things chronically, hands cramp when I write Hx of hypothyroid Hx of fibromyalgia Hx RA Employment status: works at [x+1] PREVIOUS CONSERVATIVE TREATMENTS: Physical therapy: Fall 2022 Injections - 06/2023 right multilevel lower lumbosacral TFESI with one week of benefit - previously injections in years past NSAIDs: Aleve; Advil Tylenol ACTIVE PROBLEM LIST Nontoxic Uninodular Goiter Acquired Keratoderma Hypothyroidism Diarrhea Rheumatoid Arthritis (Hcc) Flatulence, Eructation, and Gas Pain Diaphragmatic Hernia Without Mention of Obstruction Or Gangrene Ptosis of Both Eyelids Dermatochalasis of Both Upper Eyelids PAST MEDICAL HISTORY Diagnosis Date Acute gastritis [...] 12/2017 LIG/TRNSXJ FLP TUBE ABDL/VAG APPR UNI/BI 1992 Tubal ligation NEUROPLASTY &/TRANSPOS MEDIAN NRV CARPAL TUNNE 02/07/2006 Carpal tunnel decomp Left NEUROPLASTY &/TRANSPOS MEDIAN NRV CARPAL TUNNE 02/21/06 Carpal tunnel decomp Right REDUCTION OF LARGE BREAST 2005 Breast reduction TONSILLECTOMY PRIMARY/SECONDARY <AGE 12 Tonsillectomy Social History Tobacco Use Smoking status: Never Smokeless tobacco: Never Substance Use Topics Alcohol use: No Drug use: No ALLERGIES Allergen Reactions Oxycodone GI Upset Rocephin [Ceftriaxo* Hives MEDICATIONS: liothyronine (CYTOMEL) 5 mcg tablet Take 1 tablet by mouth once daily. Estradiol (ESTRACE) 0.5 mg tablet Take 1 tablet by mouth every afternoon. FOLIC ACID ORAL Take by mouth. leucovorin (LEUCOVORIN) 15 mg tablet levothyroxine (SYNTHROID) 112 mcg tablet Take 112 mcg by mouth once daily. methotrexate sodium (TREXALL) 5 mg tablet Not sure dose: takes 5 tabs once a week omeprazole(PRILOSEC 20 MG CAP) Take one(1) capsule daily. XELJANZ XR 11 mg tablet, extended release OBJECTIVE: PHYSICAL EXAM BP 139/80 Pulse 77 Ht 174 cm (5' 8.5) Wt 94.7 kg (208 lb 12.4 oz) LMP 08/12/2016 SpO2 96% BMI 31.28 kg/m GENERAL APPEARANCE: Well nourished, well developed, and no apparent distress. NEURO PSYCH: Patient oriented to person, place, and time. Mood pleasant. Benign affect. MOTOR: 5/5 in all muscle groups. GAIT: Normal. Heel walk, toe walk, duck walk and jump with good strength. REFLEXES: Biceps Right: 1+, Left: 1+., Brachioradialis Right: 1+, Left: 1+., Knee jerk Right: 2+, Left: 2+. LONG TRACT SIGNS: No clonus. No Hoffmans. DATA REVIEW [facility] records independently reviewed Images independently reviewed with the patient ASSESSMENT/PLAN M54.41, G89.29 Chronic right-sided low back pain with right-sided sciatica (primary encounter diagnosis) Erlinda Atkins is a 53 year old female with CC of chronic right sided low back > right L5 pain/numbness. MRI lumbar spine with facet arthropathy without neural compression Erlinda Atkins is not a candidate for surgery at this time. Based on MRI, no indication for surgery Imaging: Lumbar X-Ray - I will call with impression. XR to assess for spondy Follow up: TBD Future consideration discussed: referral to [facility] if XR unremarkable I spent a total of 45 minutes on the date of the service which included preparing to see the patient, [id number] patient care, completing clinical documentation, obtaining and/or reviewing separately obtained history, performing a medically appropriate examination, counseling and educating the pat ient/family/caregiver, ordering medications, tests, or procedures, and independently interpreting results (not separately reported). SIGNATURE: Indira Lagos APRN.CNP PATIENT NAME: Erlinda Atkins DATE: October 01, 2023 TIME: 1:50 PM PAGER: [facility] NoteHNO ID: [id number] Author: HALEY HEBERT PA-C Service: ? Author Type: Physician Rate Analyst Type: Progress Notes Filed: 09/13/2023 12:16 Note Text: Per Triage: Erlinda Atkins is a 53 year old female that requests evaluation of spine. Per review, they have symptoms of back pain, right leg pain. Difficulty walking, numbness right hip and leg Request: 1st available Referring provider: none Patient out of state: no 2nd opinion: yes, offered surgery Prior spine surgery: no CMT: PT Injections Aleve Advil IBU Tylenol Studies (Reports unless indicated) MRI lumbar spine report 05/15/2023: Multilevel spondylosis. With small disc bulges but no significant central canal or foraminal narrowing Disposition: Based on triage, recommend patient be scheduled with surgical CHANDLER for evaluation. No significant pathology mentioned on MRI report If office visit, please advise pt to hand carry relevant images on CD to the appt so they can be reviewed during the appt [facility] of Present illness Narrative* Haley Hebert PA-C - 09/13/2023 12:12 PM EST Per Triage: Erlinda Atkins is a 53 year old female that requests evaluation of spine. Per review, they have symptoms of back pain, right leg pain. Difficulty walking, numbness right hip and leg Request: 1st available Referring provider: none Patient out of state: no 2nd opinion: yes, offered surgery Prior spine surgery: no CMT: PT Injections Aleve Advil IBU Tylenol Studies (Reports unless indicated) MRI lumbar spine report 05/15/2023: Multilevel spondylosis. With small disc bulges but no significant central canal or foraminal narrowing Disposition: Based on triage, recommend patient be scheduled with surgical CHANDLER for evaluation. No significant pathology mentioned on MRI report If office visit, please advise pt to hand carry relevant images on CD to the appt so they can be reviewed during the appt Haley Hebert PA-C * Nikko Ruiz - 08/30/2023 4:03 PM EST Patient name: Erlinda Atkins Are you being referred by a [place] for Spine Health Provider or Pain Management Provider at [facility]? No If answer is YES please schedule directly with surgeon, triage does not need to be completed. Is this a self-referral Yes If not, who is the Referring Provider Is this a 2nd opinion from another spine surgeon? Yes Were you offered surgery? Yes MRI/CT/myelogram within 12 months? Yes If NO, please refer to medical spine or PCP to complete above imaging, triage does not need to be completed If YES, please ask for the name/address of the facility where the MRI/CT/myelogram was completed: [facility] [address] [place] [address] MRI/CT/myelogram viewable in Epic: No If not, please provide [phone] to fax in imaging reports for review. Also, please inform patient to hand carry imaging disc to appointment. XR (spine) within 12 months: Yes If YES, please ask for the name/address of the facility where the XR was completed: [facility] [place] [address], [place] [address] Dr. Kirby's patients: Have you had previous EMG/Nerve Conduction Study, Ultrasound, or MRI for thesesame symptoms? If YES, please ask for the name/address of the facility where they were completed: Requested provider (First and Last name): unknown Are you interested in a virtual visit if offered? 1. Where are you having symptoms related to this visit? Lumbar Spine Back pain Yes Leg pain Yes Rt side mostly Arm pain No Neck pain No 2. Are you having any of the following symptoms: Difficulty walking Yes Numbness Yes Rt hip, leg, feet/Rt side is worst Weakness No Rt side Trouble using your hands? No 3. Have you had any injections or physical therapy in the last 12 months? Yes If YES then please ask for the name/address of the facility where the injections and/or physical therapy was completed Injection: [facility] [address] [place] [address] [facility] [address] [place] [address] PT: [facility] [address] [place] [address] Have you tried any other kinds of non-surgical treatments in the last 12 months? (For example: NSAIDS, muscle relaxants, analgesics, oral steroids, Chiropractor, Acupuncture): Aleve, Advil, Ibuprofen, Tylenol 4. Are you currently taking daily prescribed narcotic medications for your current symptoms (For example Oxycodone, Hydrocodone, Tramadol, Morphine, Other)? No 5. Have you had previous spinal surgery for this same symptoms? No If YES please ask for the name of facility/address of where the surgery was completed: Additional Comments [phone] documented in [facility]Do[facility]24 NoteHNO ID: [id number] Author: ?, ?, ? Service: ? Author Type: ? Type: Progress Notes Filed: 09/13/2023 12:16 Note Text: Patient name: Erlinda Atkins Are you being referred by a [facility] for [facility] Provider or Pain Management Provider at [facility]? No If answer is YES please schedule directly with surgeon, triage does not need to be completed. Is this a self-referral Yes If not, who is the Referring Provider Is this a 2nd opinion from another spine surgeon? Yes Were you offered surgery? Yes MRI/CT/myelogram within 12 months? Yes If NO, please refer to medical spine or PCP to complete above imaging, triage does not need to be completed If YES,? please ask for the name/address of the facility where the MRI/CT/myelogram was completed: [address] [address] MRI/CT/myelogram viewable in Epic: No If not, please provide [phone] to fax in imaging reports for review. Also, please inform patient to hand carry imaging disc to appointment. XR (spine) within 12 months: Yes If YES,? please ask for the name/address of the facility where the XR was completed: [facility] [address] [place] [address] [address], [place] [address] Dr. Kirby's patients: Have you had previous EMG/Nerve Conduction Study, Ultrasound, or MRI for these same symptoms? If YES,? please ask for the name/address of the facility where they were completed: Requested provider (First and Last name): unknown Are you interested in a virtual visit if offered? 1. Where are you having symptoms related to this visit? Lumbar Spine Back pain Yes Leg pain Yes Rt side mostly Arm pain No Neck pain No 2. Are you having any of the following symptoms: Difficulty walking Yes Numbness Yes Rt hip, leg, feet/Rt side is worst Weakness No Rt side Trouble using your hands? No 3. Have you had any injections or physical therapy in the last 12 months? Yes If YES then please ask for the name/address of the facility where the injections and/or physical therapy was completed Injection: [address] [address] [facility], [place] [address] PT: [address], [place] [address] Have you tried any other kinds of non-surgical treatments in the last 12 months? (For example: NSAIDS, muscle relaxants, analgesics, oral steroids, Chiropractor, Acupuncture): Aleve, Advil, Ibuprofen, Tylenol 4. Are you currently taking daily prescribed narcotic medications for your current symptoms (For example Oxycodone, Hydrocodone, Tramadol, Morphine, Other)? No 5. Have you had previous spinal surgery for this same symptoms? No If YES? please ask for the name of facility/address of where the surgery was completed: Additional Comments [phone]10-24-2023 Procedure [facility]10-24-2023 Procedure [facility]09-19-2023 Discharge summary Author Jass Valderrama [facility] April 23, 2023 10:32pm Note Date/Time April 23, 2023 7:22pm [facility] Medical Records Department [address] [place] [address] Emergency Department Summary 04/23/23 MR#: [id number] Acct: [id number] Name: ERLINDA ATKINS TOAN Rep #:[id number] : 1970 53 From: Jass Valderrama MD PCP: Dr. Vargas Serra, DO Status:REG ER Location: ED HPI <ZINA Lan - Last Filed: 04/23/23 19:48> History of Present Illness Chief Complaint: Abd Pain Narrative Narrative: Patient is a 53-year-old female with history of rheumatoid arthritis, fibromyalgia, who presents to the emergency department for multiple complaints. Patient states that she has been constipated for 1 week, has not had any bowel movement, she states that this is abnormal for her. Over the last 4 days, she has noticed that the pain in her abdomen is getting worse, she feels more bloated, now she has pain to her lower back. She believes it secondary to the swelling in her abdomen. Patient states that it is harder for her to urinate, she denies any fever or chills. Patient states to have intermittent nausea however no vomiting. Patient has no appetite. [facility] <ZINA Lan - Last Filed: 04/23/23 19:48> [facility] Medical History Arthritis Arthritis, rheumatoid Fibromyalgia Hypothyroidism Home Medications levothyroxine 112 mcg tablet 125 mcg PO DAILY 06/25/13 [History Last Taken 12/04/17 08:00] omeprazole 20 mg capsule,delayed release 20 mg PO PRN PRN Indigestion 11/27/17 [History Last Taken Unknown] ibuprofen 600 mg tablet 600 mg PO Q6H PRN PRN Mild-Mod Pain (1-5/10) #30 tabs 12/04/17 [Rx Last Taken Unknown] liothyronine 5 mcg tablet 5 mcg PO DAILY 04/23/23 [History Last Taken Unknown] tofacitinib 11 mg tablet,extended release 24 hr (Xeljanz XR) 11 mg PO Q24H 04/23/23 [History Last Taken Unknown] Allergy/AdvReac Type Severity Reaction Status Date / Time ceftriaxone sodium Allergy Rash Verified 04/23/23 18:15 [From Rocephin] oxycodone AdvReac Nausea/Vom/ Verified 04/23/23 18:15 Diarrhea Surgical History History of carpal tunnel release History of foot operation History of neck surgery History of shoulder surgery History of tonsillectomy Social History Smoking Status: Never smoker alcohol intake: current alcohol intake frequency: holidays/special occasions only ROS <SAÚL LanC - Last Filed: 04/23/23 19:48> ROS ED ROS Narrative Constitutional: Negative for fever, chills, weight loss, weakness Eyes: Negative for vision loss, vision change, double vision ENT: Negative for any sore throat, ear pain, congestion Cardiovascular: Negative for any chest pain, tightness, palpitations Respiratory: Negative for any cough, sputum production, hemoptysis, dyspnea, dyspnea on exertion, orthopnea Gastrointestinal: Negative for any vomiting, diarrhea, blood in stool, blood in vomit. Positive for abdominal pain, nausea, constipation : Negative for any urinary frequency, dysuria, retention, blood in urine Muscle skeletal: Negative for any muscle joint pain, stiffness, myalgias, arthralgias, neck pain. Positive for lower back pain Neurological: Negative for any headache, syncope, numbness or tingling, dizziness Skin: Negative for any rashes, lumps, itching, abrasions, lacerations Psychiatric: Negative for any depression, anxiety, stress, suicidal ideation, homicidal ideation Hematologic: Negative for any easy bruising, excessive bruising, easy bleeding Allergies: Negative for any eczema, hives, rash EXAM <ZINA Lan - Last Filed: 04/23/23 19:48> Physical Exam Narrative Exam Narrative: PatientVital signs reviewed. HEET: Head normocephalic atraumatic, TMs clear bilaterally. Posterior pharynx is clear, moist mucous membranes. Nares clear bilaterally. Neck: Supple with no lymphadenopathy or tenderness. No signs of meningismus, negative jolt sign. Cardiac: Regular rate and rhythm no murmurs gallops or rubs, equal peripheral pulses bilaterally. Respiratory: Lungs clear to auscultation bilaterally. No chest tenderness. Abdomen: Soft. No abdominal bruit or pulsatile masses. No hepatosplenomegaly. Patient has pain to the suprapubic area as well as the left lower quadrant of her abdomen. Patient has hyperactive bowel sounds. Extremities: No peripheral edema, no signs of gross trauma or deformity. Activefull range of motion of all extremities. Neuro: Cranial nerves II through XII intact, no focal neurological deficits. Skin: Clean dry and intact with no rash, purpura, petechiae, vesicles or pustules. Backs/flank: No CVA tenderness, no midline spinal tenderness, no deformity. Negative for any red flag symptoms Psych: Normal mood and affect. No SI, HI or acute psychosis. Rectal: Rectal exam was offered impaction, she refused at this time that she would wait for the CAT scan.01 Const Vital Signs: 04/23/23 18:15 04/23/23 21:41 Temperature 98.1 F Temperature Source Temporal Pulse Rate 100 74 Respiratory Rate 18 18 Blood Pressure 152/99 H 108/54 L Blood Pressure Mean 116 72 Pulse Ox 100 99 Oxygen Delivery Method Room Air Room Air Positive well nourished and well developed General Appearance ED: well developed <Jass Valderrama MD - Last Filed: 04/23/23 22:32> Physical Exam Const Vital Signs: 04/23/23 18:15 04/23/23 21:41 Temperature 98.1 F Temperature Source Temporal Pulse Rate 100 74 Respiratory Rate 18 18 Blood Pressure 152/99 H 108/54 L Blood Pressure Mean 116 72 Pulse Ox 100 99 Oxygen Delivery Method Room Air Room Air MDM <ZINA Lan - Last Filed: 04/23/23 19:48> MDM Lab Data Labs: Laboratory Results - last 24 hr 04/23/23 19:30 WBC 10.6 RBC 3.95 L Hgb 11.6 L Hct 35.7 L MCV 90.4 MCH 29.4 MCHC 32.5 RDW Std Deviation 39.5 RDW Coeff of Jyothi 11.9 Plt Count 394 MPV 10.2 Immature Gran % (Auto) 0.300 Neut % (Auto) 71.5 H Lymph % (Auto) 15.9 L [place] % (Auto) 9.5 Eos % (Auto) 2.5 Baso % (Auto) 0.3 Absolute Neuts (auto) 7.6 Absolute Lymphs (auto) 1.69 Nucleated RBC % 0 Sodium 138 Potassium 3.8 Chloride 105 Carbon Dioxide 30.0 Anion Gap 3 L BUN 16 Creatinine 0.67 Estim Creat Clear Calc 97.96 Est GFR (MDRD) Af Amer 118 Est GFR (MDRD) Non-Af 98 BUN/Creatinine Ratio 23.8 H Glucose 101 Calcium 8.7 Total Bilirubin 0.50 AST 14 L ALT 23 Alkaline Phosphatase 59 Total Protein 7.1 Albumin 3.3 Globulin 3.8 Albumin/Globulin Ratio 0.9 Lipase 20 Radiography Diagnostic Testing: Clinical Impression(s) from Imaging Studies Abdomen/Pelvis CT 04/23/23 20:15 IMPRESSION: Acute sigmoid diverticulitis and probable abscess as above. No free air. Electronically Signed: Sonido Cazares MD at 21:21 EDT Reading Location ID and State: [address] [place] [address] Tel , Service support , ADDENDUM: 04/23/237 IMPRESSION: Acute sigmoid diverticulitis and probable abscess as above. No free air. N.B. : The above Results were Read Back by Sonido Cazares MD to Jass Valderrama MD, and understanding confirmed on 04/23/2023 21:40:43 (ET). Electronically Signed: Sonido Cazares MD at 21:21 EDT , Treatment and Re-Evaluation :: Patient appears to be in mild distress secondary to lower abdominal discomfort. Patient presents the emergency department with constipation, abdominal pain, back pain. Patient states that she is having difficulty urinating, sometimes have urinary leaking secondary to the pressure in her abdomen. Patient receiveda full abdominal work-up, laboratory values, as well as CT scan of the abdomen pelvis with IV contrast. This is concerning for any significant constipation, bowel obstruction, diverticulitis colitis. This will also look into the lower lumbar spine to ensure there is no abnormality. Patient was given IV fluids, Bentyl <Jass Valderrama MD - Last Filed: 04/23/23 22:32> [facility] Narrative Medical decision making narrative: Dr. Valderrama: I have personally performed a face to face assessment of the patient and have reviewed the CHANDLER Note. I performed a substantive portion of the visit including all aspects of the following. My doe findings include: History is obstipation and no bowel movement for 1 week, lower abdominal pain left lower quadrant to suprapubic. Exam is afebrile. Vital signs noted. Abdomen soft with mild tenderness suprapubic area to left lower quadrant, no guarding or rebound. Regular rate and rhythm. Lungs clear to auscultation bilaterally. Medical Decision Making: Check labs. Check CT. I reviewed the CT imaging and received a call from the radiologist regarding the read. She does have sigmoid diverticulitis with a 4.1 x 2.8 cm abscess above the bladder/diverticular abscess. As she has an allergy to Rocephin she was started on ciprofloxacin andFlagyl intravenously. She was given morphine for analgesia. I discussed the patient with Dr. Roberts with general surgery who will admit the patient to the medical surgical floor. Patient is in stable condition. Other additions or changes: [None] History & Record Review Discussion w/independent historian: Patient Additional record(s) reviewed:: Prior ED visit and Prior labs Lab Data Attestation: I reviewed the patient's lab results. Labs: Laboratory Results - last 24 hr 04/23/23 19:30 WBC 10.6 RBC 3.95 L Hgb 11.6 L Hct 35.7 L MCV 90.4 MCH 29.4 MCHC 32.5 RDW Std Deviation 39.5 RDW Coeff of Jyothi 11.9 Plt Count 394 MPV 10.2 Immature Gran % (Auto) 0.300 Neut % (Auto) 71.5 H Lymph % (Auto) 15.9 L [place] % (Auto) 9.5 Eos % (Auto) 2.5 Baso % (Auto) 0.3 Absolute Neuts (auto) 7.6 Absolute Lymphs (auto) 1.69 Nucleated RBC % 0 Sodium 138 Potassium 3.8 Chloride 105 Carbon Dioxide 30.0 Anion Gap 3 L BUN 16 Creatinine 0.67 Estim Creat Clear Calc 97.96 Est GFR (MDRD) Af Amer 118 Est GFR (MDRD) Non-Af 98 BUN/Creatinine Ratio 23.8 H Glucose 101 Calcium 8.7 Total Bilirubin 0.50 AST 14 L ALT 23 Alkaline Phosphatase 59 Total Protein 7.1 Albumin 3.3 Globulin 3.8 Albumin/Globulin Ratio 0.9 Lipase 20 Radiography Diagnostic Testing: Clinical Impression(s) from Imaging Studies Abdomen/Pelvis CT 04/23/23 20:15 IMPRESSION: Acute sigmoid diverticulitis and probable abscess as above. No free air. Electronically Signed: Sonido Cazares MD at 21:21 EDT Reading Location ID and State: [address] [place] [address] Tel , Service support , ADDENDUM: 04/23/232146 IMPRESSION: Acute sigmoid diverticulitis and probable abscess as above. No free air. N.B. : The above Results were Read Back by Sonido Cazares MD to Jass Valderrama MD, and understanding confirmed on 04/23/2023 21:40:43 (ET). Electronically Signed: Sonido Cazares MD at 21:21 EDT , Management Discussion w/another healthcare provider: Punch Press Setter (Dr. Roberts, general surgery) Discharge Plan Triage Chief Complaint: Abd Pain Other Complaint: Constipation ED Midlevel Provider: Iban Torres ED Provider: Jass Valderrama Dx/Rx/DC Orders Clinical Impression: Diverticulitis, Colonic diverticular abscess, Abdominal pain Prescriptions: No Action levothyroxine 112 MCG tablet 125 mcg PO DAILY omeprazole 20 MG capsule,delayed release(DR/EC) 20 mg PO PRN PRN (Reason: Indigestion) ibuprofen 600 MG tablet 600 mg PO Q6H PRN PRN (Reason: Mild-Mod Pain (1-510)) Qty: 30 0RF Xeljanz XR 11 mg tablet extended release 24 hr 11 mg PO Q24H liothyronine 5 mcg tablet 5 mcg PO DAILY Patient Comments: TAKE 1 TABLET BY MOUTH DAILY take with levothoroxine Primary Care Provider: Vargas Serra Referrals: Vargas Serra DO [Primary Care Provider] - What to do if you have Problems For any increased pain, shortness of breath, bleeding, nausea or vomiting, chestpain, or any unexpected problems, contact your Primary Care Provider. Call [facility] ([phone]) or report to the closest Emergency Room. Call 911 if necessary. 04/23/232231 <Electronically signed by Jass Valderrama MD> Cosigner Signature (if applicable): CC: Dr. Vargas Serra DO ~ Signed [facility] Work Phone: 1(914) 762-845209-05-2023 Instructions* Patient Instructions* Amberly Deleon APRN.LEADITE HEATER - 04/09/2023 5:46 PM EDT ASSESSMENT/PLAN: 1. Poison sita - ICD9: 692.6, ICD10: L23.7 - Oral Steriod tx -prednisone taper completed. - Topical steriod tx with Rx for steriod cream/ointment- kenalog - Anti itch therapy of Calomine lotion, Oatmeal baths, and Oral Benydryl recommended prn - discussed skin care of rash - follow up if symptoms persist or worsen. E Efraín [employer] KIER OPERATOR Student TEACHING PROVIDER (Physician/PA/MEDICATION TECHNICIAN) NOTE OF PERSONAL INVOLVEMENT IN CARE: I have personally seen and examined the patient and performed the medical decision-making components. I have reviewed the Advanced Practice Registered Nurse (MEDICATION TECHNICIAN) Student's documentation and verified the findings in the note as written. Any additions or changes are noted in bold/italics. Signature: Amberly Deleon Date: 04/09/2023 Time: 5:46 PM documented in this encounterDoctors Hospital09-05-2023 History of Present illness Narrative* Amberly Deleon APRN.GUMARO - 04/09/2023 5:03 PM EDT Images from the original note were not included. This note was created using Ante Upter. Subjective Erlinda Atkins is a 53 year old female. Patient presents with pruritic vesicular rash scattered on left leg and left arm for approximately two weeks after doing yard work. Patient was seen in [facility] on 03/29 and treated with a prednisone taper. Patient has been using various OTC ointments and creams at home with no relief. She denies fever, cough, chest pain, or shortness of breath. Denies any additional exposures to known allergen s. The history is provided by the patient. [...] mouth once each week. (Patient not taking: Reportedon 05/07/2022) FOLIC ACID ORAL Take by mouth. (Patient not taking: Reported on 03/29/2023) leucovorin (LEUCOVORIN) 15 mg tablet (Patient not taking: Reported on 03/29/2023) erythromycin ophthalmic ointment Apply 1/2 inch ribbon per application. To both eyes and incisions.4 times a day for 1 week, then [...] symptoms persist or worsen. E Efraín [employer] KIER OPERATOR Student TEACHING PROVIDER (Physician/PA/MEDICATION TECHNICIAN) NOTE OF PERSONAL INVOLVEMENT IN CARE: I have personally seen and examined the patient and performed the medical decision-making components. I have reviewed the Advanced Practice Registered Nurse (MEDICATION TECHNICIAN) Student's documentation and verified the findings in the note as written. Any additions or changes are noted in bold/italics. Signature: Amberly Deleon Date: 04/09/2023 Time: 5:46 PM documented in this encounterDoctors Hospital08-25-2023 History of Present illness Narrative* Molly Foster APRN.LEADITE HEATER - 03/29/2023 1:03 PM EDT Images from the original note were not included. Subjective Patient came in with complaints of itchy rash. Patient says it started about a week ago. Patient says is not getting any better. Patient says its on left arm and abdomen. Patient denies any other symptoms. The history is provided by the patient. No multi disciplined language analyst was used. Review of Systems Constitutional: Negative. [...] mouth once each week. (Patient not taking: Reportedon 05/07/2022) FOLIC ACID ORAL Take by mouth. (Patient not taking: Reported on 03/29/2023) leucovorin (LEUCOVORIN) 15 mg tablet (Patient not taking: Reported on 03/29/2023) erythromycin ophthalmic ointment Apply 1/2 inch ribbon per application. To both eyes and incisions.4 times a day for 1 week, then [...] okay with this care plan. Molly Foster APRN.LEADITE HEATER documented in this encounterDoctors Hospital03-22-2023 Discharge summary Author Hang Hernandez [facility] October 24, 2022 2:30pm Note Date/Time October 24, 2022 2:3 0pm [facility] Physical Therapy [facility] [facility] [place] [address] / REHABILITATION SERVICES DISCHARGE SUMMARY MR#: [id number] Acct: [id number] Name: ERLINDA ATKINS TOAN Rep #: [id number] : 1970 52 From: Hang Hernandez DPT, OCS, CSCS Referring : ZINA Little Prebish Status: REG RCR Insurance: [employer] INSURANCE ERLINDA ATKINS was seen in my office for initial evaluation on 09/25/22. The following Plan of Care was established for this patient: Initial Frequency: 2-3x /Week Initial Duration: 4-6 Weeks Patient/Client Instruction: Educate patient on: Condition, Plan of Care For the Purpose of:: To decrease pain, To increase ROM, To improve nutrient delivery to tissue, To improve muscle performance and motor function, To increase tolerance to activity/condition/position Therapeutic Exercise to Include: Strength training, Postural training, Flexibilty training, Gait and locomotor training, In an aquatic setting, Passive ROM, Active ROM, Dynamic Lumbar Stabilization For the Purpose of:: To decrease pain, To increase ROM, To improve nutrient delivery to tissue, To increase oxygenation perfusion, To improve ability to perform ADL's, To increase tolerance to activity/condition/position, To improve ability of physical actions for home/community/work/leisure This patient was last seen in our office 10/09/22. Pertinent comments regardingtheir Physical therapy will appear below: Pt seen for one treatment and two no shows. cancelled the rest of her visits stating she cannot make it to therapy. will discontinue her at this time at her request. At this point I will be discontinuing this patient from physical therapy. I would be happy to see this patient again in the future if found appropriate by the physician. Thank you! Hang Hernandez, DPT, OCS, CSCS Balance/Gait/Functional tests - Balance/Special Test Scores Oswestry Low Back Score: 27 <Electronically signed by Hang Hernandez DPT, OCS, CSCS> 10/24/22 1430 CC: ZINA Baca; Dr. Vargas Serra, DO ~ EBG Signed [facility] Work Phone: 1(857) 688-829410-20-2022 History of Present illness Narrative* Dago Mays PA-C - 05/24/2022 1:32 PM EDT This note was created using NoteWriter. Subjective Erlinda Atkins is a 52 year old female. HPI Patient presents with a chief complaint of cough and congestion over the past 3 weeks. She was seenat the beginning of the month and had a negative COVID and flu. She has not felt better so she cameit back in for evaluation. She has been using [id number] cough and cold medications. No feverrecently. No vomiting or diarrhea. She still has [...] mouth once each week. (Patient not taking: Reportedon 05/07/2022) 0 FOLIC ACID ORAL Take by mouth. erythromycin ophthalmic ointment Apply 1/2 inch ribbon per application. To both eyes and incisions.4 times a day for 1 week, then [...] plenty of fluids, rest, and analgesia prn. Dago Mays PA-C documented in this encounterDoctors Hospital10-04-2022 Miscellaneous Notes* Telephone Encounter - Dulce Chin LPN - 05/08/2022 1:59 PM EDT Spoke with pt and information listed below given. Pt verbalizes understanding. Dulce Chin LPN * Telephone Encounter - Dago Mays PA-C - 05/08/2022 8:10 AM EDT Let patient know their covid19 test was negative. documented in this encounterDoctors Hospital10-03-2022 Instructions* Patient Instructions* Lizette Darling APRN.LEADITE HEATER - 05/07/2022 6:47 PM EDT covid test ordered You will be notified in 24 hours, results available on [facility] isolation until covid results are back [...] breath, inability to swallow. documented in this encounterDoctors Hospital10-03-2022 History of Present illness Narrative* Lizette Darling APRN.CNP - 05/07/2022 6:39 PM EDT Subjective The history is provided by the patient. No multi disciplined language analyst was used. HPI Erlinda Atkins is a 52 year old female [...] have confirmed and edited as necessary, the [facility] Review of Systems Constitutional: Positive for malaise/fatigue. [...] middle ear effusion is present. Tympanic membrane isbulging. Nose: Mucosal edema, congestion and rhinorrhea present. [...] in 24-48 hours with results, available on [facility] - ok to leave message Diagnosis and treatment plan were discussed and questions were answered to the patient's satisfaction. Pt acknowledged understanding of concepts and follow up plan. Specific signs and symptoms that would indicate the need for higher level of care were discussed indetail warranting prompt ER evaluation. Lizette Darling APRN.GUMARO documented in this encounterDoctors Hospital03-30-2022 Evaluation + Plan note Future Scheduled Tests Radiology* MA Mammo Screening Bilateral w/ Abdirizak 11/01/21 [facility] 08-13-2012 History of Past illness Narrative* Problem Noted [...] of this encounter (statuses as of 05/08/2022) [facility] of Past illness Narrative* Problem [...] of this encounter (statuses as of 05/08/2022) [facility] of Past illness Narrative* Problem [...] of this encounter (statuses as of 05/24/2022) [facility] of Past illness Narrative* Problem [...] of this encounter (statuses as of 03/29/2023) [facility] illness Narrative* Problem [...] of this encounter (statuses as of 04/10/2023) [facility] illness Narrative* Problem [...] as of this encounter (statuses as of 09/13/2023) [facility] Narrative* Problem [...] as of this encounter (statuses as of 10/02/2023) [facility] of Past illness Narrative* Problem [...] as of this encounter (statuses as of 10/03/2023) [facility] Past illness Narrative* Problem [...] as of this encounter (statuses as of 10/23/2023) [facility] Author Suman May [facility] Note Date/Time January 04, 2025 8:41a [facility] Medical Records Department [address] [place] [address] Pre-Anesthesia Evaluation 01/04/25 0836 MR#: [id number] Acct: [id number] Name: ERLINDA ZAPATA TOAN Rep #:[id number] : 1970 54 From: Suman May MD PCP: Dr. Vargas Serra, DO Status:REG SDC Y Race: C Location: [place] [address] ASA Classification* ASA Classification ASA Classification: 2 (hypothyroid) Assessment & Plan Anesthesia* Anesthesia Assessment Anesthesia Assessment: Discussed sedation and/or anesthesia options, risks, benefits, and alternatives with patient/parents/legal guardian/POA. Questions invited. The patient/parents/legal guardian/POA seems to understand and agrees to proceedwith anesthesia plan. Reviewed the physical assessment, medical history, allergy history and patient home medications list prior to surgery/procedure/anesthetic and documented any changes. Performed airway and anesthesia risk assessments. Anesthesia Type Anesthesia Type: MAC History Source History Obtained from:: Patient and Chart Anesthesia Focused Assessment* Temperature: 98.4 F Pulse Rate: 65 Blood Pressure: 150/90 Respiratory Rate: 18 Pulse Ox: 100 Oxygen Delivery Method: Room Air Airway Assessment Mouth opens: >3 cm Mallampati Score: II Teeth Condition: Intact Neck Range of motion (ROM): Full ROM Focused Labs Anesthesia Preop lab: CBC WBC 6.3 K/mm3 (4.4-11.0) 10/21/24 16:41 10/21/24 RBC 4.49 M/mm3 (4.2-5.4) 10/21/24 16:41 10/21/24 Hgb 13.6 g/dL (12.0-15.0) 10/21/24 16:41 10/21/24 Hct 39.9 % (37-47) 10/21/24 16:41 10/21/24 Plt Count 342 K/mm3 (150-450) 10/21/24 16:41 10/21/24 CHEMISTRY Potassium 3.9 mmol/L (3.3-5.1) 10/21/24 16:41 10/21/24 Sodium 140 mmol/L (133-145) 10/21/24 16:41 10/21/24 Magnesium 2.0 mg/dL (1.6-2.6) 04/25/23 06:25 04/25/23 Phosphorus 2.5 mg/dL (2.5-4.9) 04/25/23 06:25 04/25/23 BUN 16 mg/dL (4-19) 10/21/24 16:41 10/21/24 Creatinine 0.80 mg/dL (0.70-1.20) 10/21/24 16:41 10/21/24 Glucose 90 mg/dL (70-99) 10/21/24 16:41 10/21/24 TSH 0.62 uIU/mL (0.358-3.74) 11/28/17 15:46 COAG PT 13.7 SECONDS (11.7-14.9) 11/28/17 15:46 Pre-Assessment Diagnosis/Proposed Procedure Planned Operative Procedure(s): CAUDAL BLOCK Anesthesia History 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 When Was Last Pacemaker Check QUESTION #4 FULL TEXT: You/Your Family Experience fever (hyperthermia) with Anesthesia Last Oral Intake Last Oral intake: Last Oral Intake NPO since 06:00 01/04/25 08:24 Meds taken in AM with sips of Yes 01/04/25 08:24 water? Meds patient instructed to take am of surgery PONV PONV - flame annealing machine operator: PONV - flame annealing machine operator Female Yes 12/30/24 08:54 HX of Motion Sickness No 12/30/24 08:54 HX of N/V After Surgery No 12/30/24 08:54 Non-Smoker Yes 12/30/24 08:54 Duration of Surgery greater No 12/30/24 08:54 than 60 minutes Number of Risk Factors 2 12/30/24 08:54 PONV Score Moderate Risk 12/30/24 08:54 Height & Weight Height & Weight: Anesthesia: Height & Weight Height 5 ft 8 in 01/04/25 08:24 Weight: 92 kg 01/04/25 08:24 Body Mass Index (BMI) 30.8 01/04/25 08:24 Respiratory Assessment Respiratory Assessment - flame annealing machine operator: Respiratory Tract Infection Hx - flame annealing machine operator Hx Respiratory Tract Infection No 12/30/24 08:54 STOP Sleep Apnea STOP Sleep Apnea - flame annealing machine operator: STOP Sleep Apnea - flame annealing machine operator Hx Hypertension No 12/30/24 08:54 Hx Sleep Apnea Yes 12/30/24 08:54 CPAP Yes: Does not use anymore 12/30/24 08:54 BIPAP No 12/30/24 08:54 Do you snore loudly (louder than talking or can be heard Do you often feel tired/ fatigued/ sleepy during daytime? Has anyone observed you stop breathing during sleep? STOP Results Positive 12/30/24 08:54 QUESTION #5 FULL TEXT : Do you snore loudly (louder than talking or can be heard through closed doors)? 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 operator Tobacco Use Smoking Status Former smoker 12/30/24 08:54 Hx Tobacco Use No 12/30/24 08:54 Years Smoking Packs Smoked per Day Smoking Cessation Date was Yes - quit smoking within 15 12/30/24 08:54 within the last 15 years years Hx Smoking Cessation Date 08/05/22 12/30/24 08:54 Hx Smoking Cessation No 12/30/24 08:54 Counseling Hematologic Medial History Hematologic Hx - flame annealing machine operator: Hematologic Medical Hx - stem shaper Hx of Blood Transfusion No 12/30/24 08:54 Hx of Transfusion in last 3 No 12/30/24 08:54 Months Date of Last Transfusion (if within last 3 months) Ever experience any problems No 12/30/24 08:54 with transfusion(s)? Specify any problems Hx of Preganancy in last 3 No 12/30/24 08:54 Months Nurse Filling Out Transfusion DSCHRIBER 12/30/24 08:54 & Questions: Date: 12/30/24 12/30/24 08:54 Time: 08:55 12/30/24 08:54 Patient unable to answer at this time (ie. confused, unrespo /Reproduction History /Reproductive History - flame annealing machine operator: /Reproductive Hx- flame annealing machine operator Hx Now Gestational Age (in weeks): EDC: Hx Hx Para Hx Section SAB No 12/30/24 08:54 Active Medications Active Medications: Current Medications Generic Name Dose Route Start Last Admin Trade Name Freq PRN Reason Stop Dose Admin Lactated Ringer's 1,000 mls @ 15 mls/hr 01/04/25 08:15 01/04/25 08:29 IV 15 mls/hr .Q48H CR Administration PFSH Medical History (Updated 12/30/24 @ 08:58 by Fabby Arshad) Pain CPAP (continuous positive airway pressure) dependence Wears dentures Wears glasses Depression Thyroid disease Back pain History of hiatal hernia History of diverticulitis Gastric reflux Former smoker Arthritis, rheumatoid Fibromyalgia Arthritis Home Medications ?Medication ?Instructions ?Recorded ?Last Taken ?Type levothyroxine 112 mcg tablet 112 mcg PO DAILY 06/25/13 01/04/25 06:00 History omeprazole 20 mg capsule,delayed 20 mg PO PRN Indigest ion 11/27/17 05/24/24 History release ibuprofen 600 mg tablet 600 mg PO Q6H PRN PRN Mild-M od 12/04/17 Unknown Rx Pain (1-5/10) #30 tabs liothyronine 5 mcg tablet 5 mcg PO DAILY 04/23/2305/06 History folic acid 1 mg tablet 1 mg PO DAILY 10/15/2305/23 History cyclobenzaprine 10 mg tablet 10 mg PO TID PRN Muscle S pasm #20 10/18/23 Unknown Rx TABLETS tramadol 50 mg tablet 50 mg PO TID PRN pain Unknown History methotrexate sodium 2.5 mg tablet 17.5 mg PO PEREZ Unknown History Allergy/AdvReac Type Severity Reaction Status Date / Time ceftriaxone sodium (From Allergy Rash Verified 01/04/25 08:23 Rocephin) oxycodone AdvReac Nausea/Vom/ Verified 01/04/25 08:23 Diarrhea Family History Other Asthma COPD (chronic obstructive pulmonary disease) Diabetes Hypertension Thyroid disorder Surgical History Hx of tubal ligation Hx of bilateral breast reduction surgery Hx of hysterectomy Hx of colonoscopy History of tonsillectomy History of shoulder surgery History of neck surgery History of foot operation History of carpal tunnel release Social History Smoking Status: Former smoker alcohol intake: current alcohol intake frequency: holidays/special occasions only Review of Systems (Anesthesia) ROS Narrative System reviewed and no additional complaints, except as documented. Physical Exam Const alert, oriented x3 and average body habitus Resp normal respiratory effort, normal air movement and clear to auscultation bilaterally Cardio regular rate, regular rhythm, no murmurs and diaphoretic 01/04/25 0841 <Electronically signed by Suman May MD> Date _ Suman May MD Cosigner Signature: Date CC: ~ Signed [facility] Work Phone: Consult note Author Sage [facility] Note Date/Time January 04, 2025 9:34a m [facility] Medical Records Department [address] [place] [address] Anesthesia Postop Eval I 01/04/2531 MR#: [id number] Acct: [id number] Name: ERLINDA ZAPATA Rep #:[id number] : 1970 54 From: Sage Michelle PCP: Dr. Vargas Serra, DO Status:REG SDC Y Race: C Location: [place] [address] Anesthesia: Postop Eval I Current Vital Signs Temperature: 97.8 F Pulse Rate: 70 Blood Pressure: 129/78 Respiratory Rate: 16 Pulse Ox: 97 Oxygen Delivery Method: Room Air Assessment Airway patent: Yes Spontaneous unlabored respirations: Yes Mental status: Awake and Calm nausea: No Vomiting: No Anesthesia Complication: No Fluid Hydration Crystalloid volume administer (ml): 200 Total IV fluid infused: 200 Progress Note Anesthesia document: Postop Eval 1 completed: Yes 01/04/25933 <Electronically signed by Sage Michelle > Date _ Sage Hernandez Signature: Date CC: ~ Signed [facility] Work Phone: Discharge summary Author Howard [facility] Note Date/Time October 22, 2024 10: 35am [facility] Medical Records Department [address] [place] [address] Emergency Department Summary 10/22/24 MR#: [id number] Acct: [id number] Name: ERLINDA ZAPATA Rep #:[id number] : 1970 54 From: Howard Michelle DO PCP: Dr. Vargas Serra DO Status:REG ER Location: ED HPI History of Present Illness Chief Complaint: Occup Expose Narrative Narrative: Patient is a 54-year-old female with past medical history of hypothyroidism, depression, fibromyalgia, GERD who presented to the emergency department with a concern for being stuck from a lancet a diabetic uses checked her blood glucose. Patient states that she was at work there was 1 laying out she picked it up andit stuck her right middle finger. She states that she called her HR department and they advised her to come here to be evaluated. She states that she would like hepatitis testing as well as HIV testing. Patient is unsure when her last tetanus shot she states that she believes her last tetanus shot was updated here. [facility] Medical History Wears dentures Wears glasses Depression Thyroid disease Back pain History of hiatal hernia History of diverticulitis Gastric reflux Former smoker Arthritis, rheumatoid Fibromyalgia Hypothyroidism Arthritis Home Medications ?Medication ?Instructions ?Recorded ?Last Taken ?Type levothyroxine 112 mcg tablet 125 mcg PO DAILY 06/25/13 05/25/24 History omeprazole 20 mg capsule,delayed 20 mg PO PRN Indigest ion 11/27/17 05/24/24 History release ibuprofen 600 mg tablet 600 mg PO Q6H PRN PRN Mild-M od 12/04/17 Unknown Rx Pain (1-5/10) #30 tabs liothyronine 5 mcg tablet 5 mcg PO DAILY 04/23/2305/06 History folic acid 1 mg tablet 1 mg PO DAILY 10/15/2305/23 History cyclobenzaprine 10 mg tablet 10 mg PO TID PRN Muscle S pasm #20 10/18/23 Unknown Rx TABLETS methotrexate 2.5 mg/mL oral 2.5 mg PO QWEEK 09/09/24 U nknown History solution tramadol 50 mg tablet 50 mg PO TID PRN 09/09/24 Un known History Allergy/AdvReac Type Severity Reaction Status Date / Time ceftriaxone sodium (From Allergy Rash Verified 10/22/24 09:12 Rocephin) oxycodone AdvReac Nausea/Vom/ Verified 10/22/24 09:12 Diarrhea Family History Other Asthma COPD (chronic obstructive pulmonary disease) Diabetes Hypertension Thyroid disorder Surgical History Hx of tubal ligation Hx of bilateral breast reduction surgery Hx of hysterectomy Hx of colonoscopy History of tonsillectomy History of shoulder surgery History of neck surgery History of foot operation History of carpal tunnel release Social History Smoking Status: Former smoker alcohol intake: current alcohol intake frequency: holidays/special occasions only ROS ROS ED ROS Narrative Neurological: Denies numbness, weakness, Skin: Complains of skin poke from lancet and right middle finger as noted above EXAM Physical Exam Narrative Exam Narrative: General: Patient lying in bed rest comfortably did not appear to be in acute distress Head: Atraumatic, normocephalic Eyes: PERRL bilaterally, EOMI bilaterally, no conjunctival injection noted Neck: Soft, supple, trachea midline Cardiovascular: Regular rate Extremities: +5/5 strength noted to bilateral upper and lower extremities Neurological: Patient follow commands knew that she was at [facility] 2024 Skin: Small poke from the lancet in her right middle finger no active bleeding noted no concern for infection Const Vital Signs: 10/22/24 09:10 10/22/24 09:37 Temperature 98.2 F Temperature Source Temporal Pulse Rate 94 Respiratory Rate 15 Respiratory Effort Normal Respiratory Pattern Normal Blood Pressure 179/96 H Blood Pressure Mean 123 Pulse Ox 98 Oxygen Delivery Method Room Air MDM MDM MDM Narrative Medical decision making narrative: Patient is a 54-year-old female who presented to the emergency department after occupational exposure to a lancet while at work. On the differential diagnose includes but not limited to HIV exposure, hepatitis exposure although I have very low suspicion for both of these, superficial wound. Patient will have blood test drawn here and will be advised to follow-up on these with corporate care as this was a work-related injury. Was unable to see when the patient's tetanus shot was updated last therefore updated today Patient was [facility] She was advised to watch out for signs of infection if this is to occur she is to return to the emergency department or go to corporate care. She is encouraged return with any other concerns. All question concerns answered she was discharged home in stable condition. Discharge Plan Triage Chief Complaint: Occup Expose ED Provider: Howard Michelle Dx/Rx/DC Orders Clinical Impression: Injury of right middle finger Prescriptions: No Action folic acid 1 mg tablet 1 mg PO DAILY tramadol 50 mg tablet 50 mg PO TID PRN levothyroxine 112 MCG tablet 125 mcg PO DAILY omeprazole 20 MG capsule,delayed release(DR/EC) 20 mg PO PRN ibuprofen 600 MG tablet 600 mg PO Q6H PRN PRN (Reason: Mild-Mod Pain (-12/12)) Qty: 30 0RF liothyronine 5 mcg tablet 5 mcg PO DAILY Patient Comments: TAKE 1 TABLET BY MOUTH DAILY take with levothoroxine cyclobenzaprine 10 mg tablet 10 mg PO TID PRN (Reason: Muscle Spasm) Qty: 20 0RF Primary Care Provider: Vargas Serra Referrals: Vargas Serra DO [Primary Care Provider] - [facility] [Group of Physicians] - Activity Restrictions/Additional Instructions: Follow-up with corporate care as this was a work-related injury. Watch out for signs of infection if this is to occur go to corporate care or return to the emergency department. Your tetanus shot was updated today. Follow-up on the blood tests that were obtained today with corporate care. Print Language: Russian Disposition Disposition: Home, Self Care What to do if you have Problems For any increased pain, shortness of breath, bleeding, nausea or vomiting, chestpain, or any unexpected problems, contact your Primary Care Provider. Call [facility] ([phone]) or report to the closest Emergency Room. Call 911 if necessary. 10/22/24 1035 <Electronically signed by Howard Michelle DO> Cosigner Signature (if applicable): CC: Dr. Vargas Serra DO ~ Signed [facility] Work Phone: Evaluation + Plan note Future Appointments Appointment Date:03/20/2022 04:00:00 PM Scheduled Provider:VARGAS SERRA DO Location:[facility] Appointment Type: Wellness Annual Future Scheduled Tests Radiology* MA Mammo Screening Bilateral w/ Abdirizak 11/16/20 [facility] Evaluation + Plan note Future Appointments Appointment Date:12/14/2021 04:00:00 PM Scheduled Provider:VARGAS SERRA DO Location:[facility] Appointment Type:PC OV Appointment Date:03/20/2022 04:00:00 PM Scheduled Provider:VARGAS SERRA DO Location:[facility] Appointment Type:PC Wellness Annual Future Scheduled Tests Radiology* MA Mammo Screening Bilateral w/ Abdirizak 11/16/20 * MA Mammo Screening Bilateral w/ Abdirizak 11/01/21 [facility] Evaluation + Plan note Future Appointments Appointment Date:08/16/2022 03:45:00 PM Scheduled Provider: Location:[facility] Appointment Type:PC Nurse Immunization Appointment Date:10/03/2022 04:00:00 PM Scheduled Provider:VARGAS SERRA DO Location:[facility] Appointment Type:PC OV Future Scheduled Tests Radiology* MA Mammo Screening Bilateral w/ Abdirizak 11/01/21 * XR Chest 2 Views (PA & Lateral) 06/29/22 [facility] Evaluation + Plan note Future Appointments Appointment Date:02/19/2023 03:30:00 PM Scheduled Provider:VARGAS SERRA DO Location:[facility] Appointment Type: Wellness Annual Future Scheduled Tests Laboratory* Thyroid Stimulating Hormone 07/20/22 * Thyroid Stimulating Hormone 11/28/22 * Free T4 07/20/22 * Free T4 11/28/22 * Free T3 07/20/22 * Free T3 11/28/22 * Lipid Profile 11/28/22 * Complete Metabolic Panel 11/28/22 Radiology* XR Chest 2 Views (PA & Lateral) 06/29/22 [facility] Evaluation + Plan note Future Appointments Appointment Date:09/11/2023 04:00:00 PM Scheduled Provider:VARGAS SERRA DO Location:[facility] Appointment Type:PC OV Appointment Date:10/02/2023 04:00:00 PM Scheduled Provider:VARGAS SERRA DO Location:[facility] Appointment Type:PC OV Future Scheduled Tests Laboratory* Thyroid Stimulating Hormone 07/03/23 * Free T4 07/03/23 * Free T3 07/03/23 [facility] Evaluation + Plan note Future Appointments Appointment Date:08/12/2023 04:00:00 PM Scheduled Provider:RONAK BULL Location: [facility] Appointment Type:WH OV Appointment Date:09/11/2023 04:00:00 PM Scheduled Provider:VARGAS SERRA DO Location:[facility] Appointment Type:PC OV Appointment Date:10/02/2023 04:00:00 PM Scheduled Provider:VARGAS SERRA DO Location:[facility] Appointment Type:PC OV Future Scheduled Tests Laboratory* Thyroid Stimulating Hormone 07/03/23 * Free T4 07/03/23 * Free T3 07/03/23 [facility] Evaluation + Plan note Future Appointments Appointment Date:04/23/2024 04:30:00 PM Scheduled Provider:VARGAS SERRA DO Location:[facility] Appointment Type: Wellness Annual Appointment Date:05/14/2024 04:00:00 PM Scheduled Provider:VARGAS SERRA DO Location:[facility] Appointment Type: Wellness Annual [facility] Evaluation + Plan note Future Appointments Appointment Date:01/26/2025 02:00:00 PM Scheduled Provider:VARGAS SERRA DO Location:[facility] Appointment Type:PC OV Future Scheduled Tests Radiology* MA Mammo Screening Bilateral w/ Abdirizak 12/24/24 [facility] evaluation noteNo assessment information available [facility] Work Phone: evaluation note* Diagnosis URI with cough and congestion- Primary documented in this encounter [facility] note* Diagnosis Sinobronchitis- Primary Unspecified sinusitis (chronic) documented in this encounter [facility] note* Diagnosis Allergic contact dermatitis due to plants, except food- Primary Contact dermatitis and other eczema due to plants (except food) documented in this encounter [facility] note* Diagnosis Poison sita- Primary Contact dermatitis and other eczema due to plants (except food) documented in this encounter [facility] note* Diagnosis Onset Date Resolution Status Abdominal pain acute Colonic diverticular abscess acute Diverticulitis acute [facility] Work Phone: Evaluation note* Diagnosis Onset Date Resolution Status Abdominal pain acute Colonic diverticular abscess acute Diverticulitis acute Colonic diverticular abscess acute [facility] Work Phone: Evaluation note* Diagnosis Onset Date Resolution Status Colonic diverticular abscess acute [facility] Work Phone: Evaluation note* Diagnosis Degeneration of lumbar or lumbosacral intervertebral disc- Primary documented in this encounter [facility] note* Diagnosis Chronic right-sided low back pain with right-sided sciatica- Primary documented in this encounter [facility] note* Diagnosis Chronic right-sided low back pain with right-sided sciatica documented in this encounter [facility] note* Diagnosis Onset Date Resolution Status Blood in stool acute Left lower quadrant abdominal pain acute [facility] Work Phone: Evaluation note* Diagnosis Onset Date Resolution Status Blood in stool acute Left lower quadrant abdominal pain acute Left lower quadrant abdominal pain acute [facility] Work Phone: evaluation note* Diagnosis Viral URI with cough- Primary Acute upper respiratory infections of unspecified site [facility] Noel Roberts [facility] April 23, 2023 10:41pm Note Date/Time April 23, 2023 10:41pm [facility] Medical Records Department [address] [place] [id number] History & Physical Exam 04/23/233 MR#: [id number] Acct: [id number] Name: WILBERTANGELRad JOYA Rep #:[id number] : 1970 53 From: Noel Pimentel PCP: Dr. Vargas Serra, DO Status:ADM IN [place] [facility] [place] HPI - General General Date of Admission: 04/23/23 Date of Service: 04/23/23 Chief Complaint: Abdominal pain with associated constipation HPI Narrative ERLINDA ATKINS, is a 53 F who presents to [facility] with complaints of severe constipation times last 1 week with associated lower back and abdominal discomfort. Ms. Atkins states that her presentation was delayed onthe account of her attributing all of this to some chronic back pain. She notesthat she tried both laxatives and stool softeners without positive effect. She states that the lack of bowel movement and the presence of suprapubic pain have limited her ability to eat. She notes that she has been able to urinate but hasfelt some associated pressure with this activity. She denies any feeling of passage of air or burning. She denies any fevers but did have some chills earlier today. Ms. Atkins has no prior history of diverticulitis, however she reports a history of a colonoscopy over 5 years ago through the [facility] outpatient facility. As she recalls the results were largely normal save findings of probable diverticulosis. Patient has no family history of colon cancer or inflammatory bowel disease. ED work-up is notable for CBC with normal WBC but evidence of mild neutrophilia. CT imaging of the abdomen pelvis shows evidence of a 4 cm pericolonic abscess sitting just above the bladder. Patient has a prior surgical history of laparoscopic hysterectomy [facility] Medical History Arthritis Arthritis, rheumatoid Fibromyalgia Hypothyroidism Home Medications levothyroxine 112 mcg tablet 125 mcg PO DAILY 06/25/13 [History Last Taken 12/04/17 08:00] omeprazole 20 mg capsule,delayed release 20 mg PO PRN PRN Indigestion 11/27/17 [History Last Taken Unknown] ibuprofen 600 mg tablet 600 mg PO Q6H PRN PRN Mild-Mod Pain (1-5/10) #30 tabs 12/04/17 [Rx Last Taken Unknown] liothyronine 5 mcg tablet 5 mcg PO DAILY 04/23/23 [History Last Taken Unknown] tofacitinib 11 mg tablet,extended release 24 hr (Xeljanz XR) 11 mg PO Q24H 04/23/23 [History Last Taken Unknown] Allergy/AdvReac Type Severity Reaction Status Date / Time ceftriaxone sodium Allergy Rash Verified 04/23/23 18:15 [From Rocephin] oxycodone AdvReac Nausea/Vom/ Verified 04/23/23 18:15 Diarrhea Surgical History History of carpal tunnel release History of foot operation History of neck surgery History of shoulder surgery History of tonsillectomy Social History Smoking Status: Never smoker alcohol intake: current alcohol intake frequency: holidays/special occasions only ROS Constitutional Constitutional: Reports chills; Denies fever(s) Gastrointestinal Gastrointestinal: Reports abdominal pain and constipation Genitourinary Genitourinary: Denies dysuria Musculoskeletal Musculoskeletal: Reports back pain Vital Signs Vital Signs Vital Signs: 04/23/23 18:15 04/23/23 21:41 Temperature 98.1 F Temperature Source Temporal Pulse Rate 100 74 Respiratory Rate 18 18 Blood Pressure 152/99 H 108/54 L Blood Pressure Mean 116 72 Pulse Ox 100 99 Oxygen Delivery Method Room Air Room Air Weight Weight: 191 lb Body Mass Index (BMI) 29.0 Physical Exam Const alert, oriented x3 and well nourished Constitutional Narrative: Mild distress General Appearance: cooperative Resp normal respiratory effort GI GI Narrative: Nondistended, well-healed port site scars, soft, suprapubic tenderness present. Mild voluntary guarding present. No rebound tenderness present. Results Lab / Micro Data 04/23/23 19:30 04/23/23 19:30 Labs: Laboratory Results - last 24 hr 04/23/23 19:30: WBC 10.6, RBC 3.95 L, Hgb 11.6 L, Hct 35.7 L, MCV 90.4, MCH 29.4, MCHC 32.5, RDW Std Deviation 39.5, RDW Coeff of Jyothi 11.9, Plt Count 394, MPV 10.2, Immature Gran % (Auto) 0.300, Neut % (Auto) 71.5 H, Lymph % (Auto) 15.9 L, [place] % (Auto) 9.5, Eos % (Auto) 2.5, Baso % (Auto) 0.3, Absolute Neuts (auto) 7.6, Absolute Lymphs (auto) 1.69, Nucleated RBC % 0, Sodium 138, Potassium 3.8, Chloride 105, Carbon Dioxide 30.0, Anion Gap 3 L, BUN 16, Creatinine 0.67, Estim Creat Clear Calc 97.96, Est GFR (MDRD) Af Amer 118, Est GFR (MDRD) Non-Af 98, BUN/Creatinine Ratio 23.8 H, Glucose 101, Calcium 8.7, Total Bilirubin 0.50, AST 14 L, ALT 23, Alkaline Phosphatase 59, Total Protein 7.1, Albumin 3.3, Globulin 3.8, Albumin/Globulin Ratio 0.9, Lipase 20 Radiology Impression Abdomen/Pelvis CT 04/23/23 20:15 IMPRESSION: Acute sigmoid diverticulitis and probable abscess as above. No free air. Electronically Signed: Sonido Cazares MD at 21:21 EDT , ADDENDUM: 04/23/232146 IMPRESSION: Acute sigmoid diverticulitis and probable abscess as above. No free air. N.B. : The above Results were Read Back by Sonido Cazares MD to Jass Valderrama MD, and understanding confirmed on 04/23/2023 21:40:43 (ET). Electronically Signed: Sonido Cazares MD at 21:21 EDT , Assessment & Plan Assessment/Plan (1) Colonic diverticular abscess: PLAN: This is a 53-year-old female with her first presentation of acute diverticulitis which qualifies as complicated diverticulitis on the account of apericolonic abscess sitting just above the bladder. This abscess measures up to4 cm in greatest dimension. Patient is clinically stable and there is no leukocytosis with her CBC. Given the stability, I have recommended we proceed with conservative management upfront. However, given the size of the abscess, plan to consult radiology tomorrow for possible percutaneous CT?guided drainage (there appears to be a possible transgluteal approach to the abscess via my independent review of the patient's CT imaging). For the interim we will plan to proceed with bowel rest, IV fluid resuscitation, IV antibiotics (patient has an allergy to cephalosporins), and will hold her Orencia in the event that she would require further intervention. Lastly I will obtain a urinalysis given theproximity to the patient's bladder. Charges/Coding Visit Charges Inpatient E&M: 93186 Init Hosp L2 04/23/231 <Electronically signed by Noel Roberts MD> Cosigner Signature (if applicable): CC: Dr. Vargas Serra DO; Dr. Noel Roberts MD~ Signed [facility] Work Phone: History and physical note Author Noel Roberts [facility] May 28, 2023 10:12am Note Date/Time May 28, 2023 1 0:12am [facility] Medical Records Department [address] [place] [address] History & Physical Exam 05/28/23 1011 MR#: [id number] Acct: [id number] Name: ERLINDA ATKINS Rep #:[id number] : 1970 53 From: Noel Pimentel PCP: Dr. Vargas Serra DO Status:[facility] Location: [place] [address] History and Physical Date of Admission: 05/28/23 Date of Service: 05/03/23 MR#: [id number] Acct: [id number] Name: ERLINDA ATKINS Rep #: [id number] : 1970 Provider: Dr. Noel Roberts MD Age/Sex: 53/F Location: [facility] Status: Signed Intake Vital Signs 04/24/2314:21 Height 5 ft 8 in Intake Visit Reasons: ACUTE DIVERTICULITIS 04/27 Chief Complaint: acute diverticulits 04/27 Is patient in pain?: No Allergies ceftriaxone sodium [From Rocephin] Allergy (Verified 05/03/23 09:22) Rashoxycodone Adverse Reaction (Verified 05/03/23 09:22) Nausea/Vom/Diarrhea Medications levothyroxine 112 mcg tablet 125 mcg PO DAILY 06/25/13 [History Confirmed 05/03/23] omeprazole 20 mg capsule,delayed release 20 mg PO PRN PRN Indigestion 11/27/17 [History Confirmed 05/03/23] ibuprofen 600 mg tablet 600 mg PO Q6H PRN PRN Mild-Mod Pain (1-5/10) #30 tabs 12/04/17 [Rx Confirmed 05/03/23] liothyronine 5 mcg tablet 5 mcg PO DAILY 04/23/23 [History Confirmed 05/03/23] tofacitinib 11 mg tablet,extended release 24 hr (Xeljanz XR) 11 mg PO Q24H 04/23/23 [History Confirmed 05/03/23] amoxicillin 875 mg-potassium clavulanate 125 mg tablet 1 tab PO BID 10 days #20 tabs 04/27/23 [Rx Confirmed 05/03/23] ciprofloxacin HCl 500 mg tablet 500 mg PO BID 10 days #20 tabs 04/27/23 [Rx Confirmed 05/03/23] tramadol 50 mg tablet 50 mg PO Q6H PRN PRN Pain Score 4-10 5 days #10 tabs 04/27/23 [Rx Confirmed 05/03/23] Subjective Details: Patient is a 53-year-old female who makes first outpatient visit following inpatient stay for management of complicated diverticulitis. She states that overall she is doing well since hospital discharge. She notes that she took a little while to find motivation and has either been just lying around or doinghousework. She denies any fevers or chills at home. She states her abdominal discomfort is significantly improved. She does note some hardness where her tube was (from percutaneous drain) and wishes to know whether this was go down. She denies any drainage from the site. She reports that her bowel movements aresoft and formed. She states that she is still iffy when eating and sometimes will become full after only 1 meal per day. She is already making use of a probiotic to try to minimize her risk for a yeast infection while on antibiotics. Objective Details: Constitutional cooperative, no acute distress Abdomen: Nondistended, scabbed over suprapubic drain site, soft, tender to palpation of the left lower quadrant (rated 3 out of 10) Coding Level of Care Code Off vis,est,level 3 Diagnoses Colonic diverticular abscess K57.20 [facility] Medical History Arthritis Arthritis, rheumatoid Fibromyalgia Hypothyroidism Surgical History History of carpal tunnel release History of foot operation History of neck surgery History of shoulder surgery History of tonsillectomy Social History Smoking Status: Never smoker alcohol intake: current alcohol intake frequency: holidays/special occasions only Assessment and Plan (No Qualifiers) Assessment and Plan (1) Colonic diverticular abscess: Status: Acute Comment: This is a 53-year-old female who makes her first outpatient visit following an inpatient stay for management of complicated diverticulitis that required percutaneous drain placement. Drain was discontinued prior to patient's discharge from the hospital. Overall patient appears to be progressively improving. Her abdominal exam does show some tenderness persistently present inthe left lower quadrant. At this point I recommend her completing her prescribed antibiotic course (due to finish through next week) and continue her probiotic. I have asked her to keep me informed if she then develops fevers or chills once the antibiotic course was completed. At this time we will plan for diagnostic colonoscopy in 6 weeks to evaluate that portion of her colon has beenaffected by this diverticulitis. She does wish to know whether or not there is any risk for colon cancer at this time. I have informed her that there are occasions in which colon cancer can masquerade as diverticulitis, however this is a minor event. I have also discussed with her the need for a prep in the procedure for undergoing a colonoscopy?including need for a swing driver the day of the procedure. Patient denies any questions and states she is eager to have thestudy completed. Plan: ? Continue antibiotic course to completion next week ? Continue probiotic ? Plan for diagnostic colonoscopy in 6 to 7 weeks ? Patient cleared to return to work starting 05/06/2023 I have examined the patient and the H&P has been reviewed. There are no clinicalchanges since date of exam. Mrs. Atkins reports that she has had minimal abdominal discomfort. She confirms that she completed a prep in anticipation oftoday's procedure. She denies any further questions and so we will therefore proceed with diagnostic colonoscopy as discussed in greater detail above. 05/28/23 1012 <Electronically signed by Noel Robetrs MD> Cosigner Signature (if applicable): CC: Dr. Vargas Serra, DO; Dr. Noel Roberts MD~ Signed [facility] Work Phone: Hospital course Narrative No data available for this section [facility] Hospital Discharge instructions No data available for this section [facility] Hospital Discharge instructions Additional Instructions Plenty of fluids and rest. Tylenol and Motrin for pain and body aches and fever. Follow-up with your doctor if not improving.[facility] Work Phone: Hospital Discharge instructions Additional Instructions Follow-up with corporate care as this was a work-related injury. Watch out for signs of infection if this is to occur go to corporate care or return to the emergency department. Your tetanus shot was updated today. Follow-up on the blood tests that were obtained today with corporate care.[facility] Work Phone: Progress note No data available for this section [facility] Reason for referral (narrative)* Diagnostic Procedure Only (Routine) - Pending Review Specialty Diagnoses / Procedures Referred By Contac t Referred To Contact XR IMAGING Diagnoses Chronic right-sided low back pain with right-sided sciatica Procedures XR LUMBAR MOTION 4V AP/LAT/ FLEX/EXT RADEX SPINE LUMBOSACRAL MINIMUM 4 VIEWS Indira Lagos APRN.CNP [address] [id number] Xr Imaging [place] [id number] Referral ID Status Reason Start Date Expiration Date Visits Requested Visits Authorized [id number] Pending Review Auto-Generat ed Referral 10/01/2023 10/30/2024 1 1 [facility] for referral (narrative)* Diagnostic Procedure Only (Routine) - Closed Specialty Diagnoses / Procedures Referred By Contac t Referred To Contact XR IMAGING Diagnoses Chronic right-sided low back pain with right-sided sciatica Procedures XR LUMBAR MOTION 4V AP/LAT/ FLEX/EXT RADEX SPINE LUMBOSACRAL MINIMUM 4 VIEWS Indira Lagos APRN.CNP [address] [id number] Xr Imaging [facility] Referral ID Status Reason Start Date Expiration Date V isits Requested Visits Authorized [id number] Closed Auto-Generate d Referral 10/01/2023 10/30/2024 [facility]No reason for referral information availableWSum[facility] Work Phone: Reason for visit Narrative* Diagnostic Procedure Only (Routine) - Closed Specialty Diagnoses / Procedures Referred By Contac t Referred To Contact XR IMAGING Diagnoses Chronic right-sided low back pain with right-sided sciatica Procedures XR LUMBAR MOTION 4V AP/LAT/ FLEX/EXT RADEX SPINE LUMBOSACRAL MINIMUM 4 VIEWS Indira Lagos APRN.CNP [address] [id number] Xr Imaging [place] [address] Referral ID Status Reason Start Date Expiration Date V isits Requested Visits Authorized [id number] Closed Auto-Generate d Referral 10/01/2023 10/30/2024 1 1 [facility] Summary Purpose Family History No Family History Records Found Relationship Condition Age at Onset Recorded Date/T vanessa Not Specified Diabetes mellitus Unknown Chronic obstructive pulmonary disease Unk nown Hypertension Unknown Disorder of thyroid Unknown Asthma Unknown Advance Directives No Advanced Directives Records Found Advance Directive Response Recorded Date/ Time Living Will No March 13, 2021 6:31pm Power of Dairy Farm Supervisor No March 13 6:31pm Advance Directive Response Recorded Date/ Time Living Will No June 22 022 4:08am Power of Dairy Farm Supervisor No June 22, 2022 4:08am Advance Directive Response Recorded Date/ Time Living Will No June 22 5:08am Power of Dairy Farm Supervisor No June 22, 2022 5:08am Advance Directive Response Recorded Date/ Time Living Will No April 23, 2023 7:26pm Power of Dairy Farm Supervisor No April 7:26pm Advance Directive Response Recorded Date/ Time Living Will No April 23, 2023 11:09pm Power of Dairy Farm Supervisor No April 11:09pm Advance Directive Response Recorded Date/ Time Living Will No May 22 3:08pm Power of Dairy Farm Supervisor No May 22, 2023 3:08pm Advance Directive Response Recorded Date/ Time Living Will No June 21, 023 3:35pm Power of Dairy Farm Supervisor No June 21, 2023 3:35pm Advance Directive Response Recorded Date/ Time Living Will No October 18, 2023 12:54pm Power of Dairy Farm Supervisor No October 17 24 12:54pm Advance Directive Response Recorded Date/ Time Living Will No October 22, 2024 9:37am Do you have a Healthcare Power of Dairy Farm Supervisor? No October 22, 2024 9:37am Advance Directive Response Recorded Date/ Time Living Will No October 22, 2024 9:37am Do you have a Healthcare Power of Dairy Farm Supervisor? No October 22, 2024 9:37am Do you have a Healthcare Power of Dairy Farm Supervisor? No December 30, 2024 8:54am Advance Directive Response Recorded Date/ Time Do you have a Healthcare Power of Dairy Farm Supervisor? No December 30, 2024 8:54am Chief Complaint Chief Complaint Description Start Date [...] has not been provided by the sender. Chief Complaint and Reason for Visit Chief Complaint ARTHRITIS/PAIN- COPY PCP/ ADD JABOUR ORDER PAIN- COPY PCP Chief Complaint PAIN- COPY PCP PAIN- COPY PCP Chief Complaint PAIN- COPY PCP Chief Complaint PAIN- COPY PCP LUMBAR SPONDYLOSIS,IVDD,RADIC/RX HERE GENERAL Chief Complaint LUMBAR SPONDYLOSIS,I VDD,RADIC/RX HERE GENERAL Chief Complaint LUMBAR SPONDYLOSIS/R X HERE Chief Complaint LUMBAR SPONDYLOSIS/R X HERE PAIN- COPY PCP Chief Complaint PAIN- COPY PCP DIVERTICULITIS DIVERTICULITIS Reason for Visit Abdominal pain Colonic diverticular abscess Diverticulitis Chief Complaint PAIN- COPY PCP DIVERTICULITIS ACUTE DIVERTICULITIS WITH HER ABDOMINAL ABSCESS ACUTE DIVERTICULITIS WITH HER ABDOMINAL ABSCESS ACUTE DIVERTICULITIS WITH HER ABDOMINAL ABSCESS ACUTE DIVERTICULITIS WITH HER ABDOMINAL ABSCESS ACUTE DIVERTICULITIS WITH HER ABDOMINAL ABSCESS ACUTE DIVERTICULITIS 04/27 LUMBAR RAD Reason for Visit Abdominal pain Colonic diverticular abscess Diverticulitis Colonic diverticular abscess Chief Complaint DIVERTICULITIS ACUTE DIVERTICULITIS WITH HER ABDOMINAL ABSCESS ACUTE DIVERTICULITIS WITH HER ABDOMINAL ABSCESS ACUTE DIVERTICULITIS WITH HER ABDOMINAL ABSCESS ACUTE DIVERTICULITIS WITH HER ABDOMINAL ABSCESS ACUTE DIVERTICULITIS WITH HER ABDOMINAL ABSCESS ACUTE DIVERTICULITIS 04/27 LUMBAR RAD Reason for Visit Abdominal pain Colonic diverticular abscess Diverticulitis Colonic diverticular abscess Chief Complaint ACUTE DIVERTICULITIS 04/27 LUMBAR RAD PAIN- COPY PCP Reason for Visit Colonic diverticular abscess Chief Complaint PAIN- COPY PCP DIVERTICULITIS SOB Reason for Visit Blood in stool Left lower quadrant abdominal pain Chief Complaint PAIN- COPY PCP DIVERTICULITIS SOB DIVERTICULITIS PAIN- COPY PCP Reason for Visit Blood in stool Left lower quadrant abdominal pain Left lower quadrant abdominal pain Chief Complaint Admit Date PAIN- COPY PCP July 31, 2024 2:30pm Painful Varicose Veins September 09 3:23pm PAIN- COPY PCP October 21, 2024 4:3 7pm EXPOSURE October 22, 2024 9:0 9am Reason for Visit Admit Date Symptomatic varicose veins September 09, 2024 3:23pm Chief Complaint Admit Date Painful Varicose Veins September 09 3:23pm PAIN- COPY PCP October 21, 2024 4:3 7pm EXPOSURE October 22, 2024 9:0 9am [facility] January 04, 2025 8:03a m Chief Complaint Admit Date [facility] January 04, 2025 8:03a m WAITING ON ORDER February 19, 2025 9:25 am Health Concerns Infection Onset Date Last Indicated Resolved Time COVID-19 Rule-Out 05/07/2022 05/07/2022 Infection Onset Date Last Indicated Resolved Time COVID-19 Rule-Out 05/07/2022 05/07/2022 05/08/2022 8:04 AM EDT Additional Source Comments INFORMATION SOURCE (unrecogn ized section and content) DATE CREATED AUTHOR 01/29/2018 [employer] DATE CREATED AUTHOR AUTHOR'S ORGANIZ ATION 10/27/2023 [facility] ([place] DATE CREATED AUTHOR AUTHOR'S ORGANIZ ATION 06/18/2024 [facility] DATE CREATED AUTHOR AUTHOR'S ORGANIZ ATION 01/23/2025 [facility] DATE CREATED AUTHOR AUTHOR'S ORGANIZ ATION 02/27/2025 [facility] Reason for Visit (unrecogniz ed section and content) Reason For Visit Description New Complaint Preliminary reason f or visit data, not yet signed by the author as of left shoulder pain Reason Comments Sore Throat Cough, JONAH ear pain x2 days Reason Comments Results Reason Comments Sinus Problem Sinus, congestion, g reen drainage, ST and cough x several weeks Reason Comments Derm Problem Left arm rash x 7 da ys Reason Comments Rash Rash-was here on 03/06 5 and now has new blisters Reason Comments New Patient Reason Comments Call after 3:30 Reason Comments Sore Throat Cough, hoarse voice x2 days Care Team (unrecognized sect ion and content) 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 Vargas Serra DO Family Provider Active Dr. Vargas Serra DO Primary Care Provider Active Team Status: Inactive Member Role Status Dates Dr. Vargas Serra DO Primary Care Provider Active Anabel Baca PILE TRIMMER, PILE TRIMMER-C Attending Provider, Referring Pr ovider Active Team Status: Inactive Member Role Status Dates Dr. Vargas Serra DO Primary Care Provider Active Dr. Sheyla Cruz MD Attending Provider Active Sheyla Cruz MD Referring Provider Active Team Status: Inactive Member Role Status Dates Dr. Vargas Serra DO Primary Care Provider Active Dr. Ayan John MD Attending Provider, Emergency Pro vider Active Team Status: Inactive Member Role Status Dates Dr. Vargas Serra DO Primary Care Provider Active ROCK ANABEL Attending Provider Active Team Status: Active Member Role Status Dates Dr. Vargas Serra DO Primary Care Provider Active Dr. Sheyla Cruz MD Attending Provider, Referring Provider Active Team Status: Inactive Member Role Status Dates Dr. Vargas Serra DO Primary Care Provider Active Dr. 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 Vargas Serra DO Primary Care Provider Active Jass Valderrama MD Emergency Provider Active Dr. Noel Roberts MD Admit Provider, A ttending Provider, Other Provider Active Team Status: Active Member Role Status Dates Dr. Vargas Serra DO Primary Care Provider Active Jass Valderrama MD Emergency Provider Active Dr. Noel Roberts MD Admit Provider, Attending Provi andreina Active Team Status: Active Member Role Status Dates Dr. Vargas Serra DO Primary Care Provider Active Jass Valderrama MD Emergency Provider Active Dr. Noel Roberts MD Admit Provider, Other Provider Active Rashmi KAPLAN PA-C Attending Provider Active Team Status: Inactive Member Role Status Dates Dr. Vargas Serra DO Primary Care Provider, Referri ng Provider Active Dr. Noel Roberts MD Attending Provider Active Team Status: Inactive Member Role Status Dates Dr. Vargas Serra DO Primary Care Provider Active Jass Valderrama MD Emergency Provider Active Dr. Noel Roberts MD Admit Provider, Attending Provi andreina Active Team Status: Inactive Member Role Status Dates Dr. Vargas Serra DO Primary Care Provider Active ZINA Fierro Attending Provider Active Team Status: Active Member Role Status Dates Dr. Vargas Serra DO Primary Care Provider, Referri ng Provider Active Dr. Noel Roberts MD Attending Provider, Other Provi andreina Active Team Status: Inactive Member Role Status Dates Dr. Vargas Serra DO Primary Care Provider Active Dr. 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 Vargas Serra DO Primary Care Provider Active Dr. Noel Roberts MD Attending Provider, Referring P rovider Active Team Status: Inactive Member Role Status Dates Dr. Vargas Serra DO Primary Care Provider Active Dr. Osei Lugo DO Emergency Provider Active Team Status: Inactive Member Role Status Dates Dr. Vargas Serra DO Primary Care Provider Active Dr. Noel Roberts MD Attending Provider, Referring P rovider Active Metal Cabinet Finisher Relationship Specialty Start Date End Date Vargas Serra DO [address] [place] [address] PCP - General Family Medicine 09/02/18 Team Status: Inactive Member Role Status Dates Dr. Vargas Serra DO Primary Care Provider Active Dr. Osei Lugo DO Attending Provider, Emergency Provider Active Metal Cabinet Finisher Relationship Specialty Start Date End Date Vargas Serra DO [address] [place] [address] PCP - General Family Medicine 09/02/18 Team Status: Active Member Role Status Dates Dr. Vargas Serra DO Primary Care Provider Active Team Status: Inactive Member Role Status Dates Dr. Vargas Serra DO Primary Care Provider Active Start: July 31, 2024 End: July 31, 2024 Dr. Sheyla Cruz MD Attending Provider Active Start: July 31, 2024 End: July 31, 2024 Dr. Sheyla Cruz MD Referring Provider Active Start: July 31, 2024 End: July 31, 2024 Team Status: Inactive Member Role Status Dates Dr. Vargas Serra DO Primary Care Provider Active Start: September 09, 2024 End: September 09, 2024 Dr. Vargas Serra DO Referring Provider Active Start: September 09, 2024 End: September 09, 2024 EUSEBIO Leblanc Attending Provider Active Star t: September 09, 2024 End: September 09, 2024 Team Status: Active Member Role Status Dates Dr. Vargas Serra DO Primary Care Provider Active Start: October 21, 2024 Dr. Sheyla Cruz MD Attending Provider Active Start: October 21, 2024 Dr. Sheyla Cruz MD Referring Provider Active Start: October 21, 2024 Team Status: Inactive Member Role Status Dates Dr. Vargas Serra DO Primary Care Provider Active Start: October 22, 2024 End: October 22, 2024 Dr. Howard Michelle DO Emergency Provider Active Start: October 22, 2024 End: October 22, 2024 Team Status: Inactive Member Role Status Dates Dr. Vargas Serra DO Primary Care Provider Active Start: October 21, 2024 End: October 21, 2024 Dr. Sheyla Cruz MD Attending Provider Active Start: October 21, 2024 End: October 21, 2024 Dr. Sheyla Cruz MD Referring Provider Active Start: October 21, 2024 End: October 21, 2024 Team Status: Inactive Member Role Status Dates Dr. Vargas Serra DO Primary Care Provider Active Start: October 22, 2024 End: October 22, 2024 Dr. Howard Michelle DO Attending Provider Active Start: October 22, 2024 End: October 22, 2024 Dr. Howard Michelle DO Emergency Provider Active Start: October 22, 2024 End: October 22, 2024 Team Status: Inactive Member Role Status Dates Dr. Vargas Serra DO Primary Care Provider Active Start: January 04, 2025 End: January 04, 2025 Dr. Heron Xiao MD Attending Provider Active Start: January 04, 2025 End: January 04, 2025 Dr. Heron Xiao MD Referring Provider Active Start: January 04, 2025 End: January 04, 2025 Team Status: Active Member Role/Relationship Status Dates Dr. Vargas Serra DO Primary Care Provider Active Team Status: Inactive Member Role/Relationship Status Dates Dr. Vargas Serra DO Primary Care Provider Active Start: January 04, 2025 End: January 04, 2025 Dr. Heron Xiao MD Attending Provider Active Start: January 04, 2025 End: January 04, 2025 Dr. Heron Xiao MD Referring Provider Active Start: January 04, 2025 End: January 04, 2025 Team Status: Inactive Member Role/Relationship Status Dates Dr. Vargas Serra DO Primary Care Provider Active Start: February 19, 2025 End: February 19, 2025 Dr. Sheyla Cruz MD Attending Provider Active Start: February 19, 2025 End: February 19, 2025 Dr. Sheyla Cruz MD Referring Provider Active Start: February 19, 2025 End: February 19, 2025 Goals (unrecognized section and content) Goals may be documented in a n alternate section Source Comments (unrecognize d section and content) In the event this informatio n is protected by the Federal Confidentiality of Alcohol and Drug Abuse Patient Records regulations: The Federal rules restrict any use of the information to criminally investigate or prosecute any alcohol or drug abuse patient.[facility] Hospital[facility] the event this information is protected by the Federal Confidentiality of Alcohol and Drug Abuse Patient Records regulations: The Federal rules restrict any use of the information to criminally investigate or prosecute any alcohol or drug abuse patient.[facility] HospitalIn the event this information is protected by the Federal Confidentiality of Alcohol and Drug Abuse Patient Records regulations: The Federal rules restrict any use of the information to criminally investigate or prosecute any alcohol or drug abuse patient.[facility] HospitalIn the event this information is protected by the Federal Confidentiality of Alcohol and Drug Abuse Patient Records regulations: The Federal rules restrict any use of the information to criminally investigate or prosecute any alcohol or drug abuse patient.[facility] HospitalIn the event this information is protected by the Federal Confidentiality of Alcohol and Drug Abuse Patient Records regulations: The Federal rules restrict any use of the information to criminally investigate or prosecute any alcohol or drug abuse patient.[facility] HospitalIn the event this information is protected by the Federal Confidentiality of Alcohol and Drug Abuse Patient Records regulations: The Federal rules restrict any use of the information to criminally investigate or prosecute any alcohol or drug abuse patient.[facility] HospitalIn the event this information is protected by the Federal Confidentiality of Alcohol and Drug Abuse Patient Records regulations: The Federal rules restrict any use of the information to criminally investigate or prosecute any alcohol or drug abuse patient.[facility] HospitalIn the event this information is protected by the Federal Confidentiality of Alcohol and Drug Abuse Patient Records regulations: The Federal rules restrict any use of the information to criminally investigate or prosecute any alcohol or drug abuse patient.[facility] HospitalIn the event this information is protected by the Federal Confidentiality of Alcohol and Drug Abuse Patient Records regulations: The Federal rules restrict any use of the information to criminally investigate or prosecute any alcohol or drug abuse patient.[facility] HospitalIn the event this information is protected by the Federal Confidentiality of Alcohol and Drug Abuse Patient Records regulations: The Federal rules restrict any use of the information to criminally investigate or prosecute any alcohol or drug abuse patient.[facility] Care Team (unrecognized sect ion and content) Care Team Personnel Name: CYRUS LIANG MD Position: Physician Med Service: Admitting Member Role: Collection Development Librarian Address: Address: [address] [place] [address] Name: VARGAS SERRA DO Position: P4 Physician - Primary Care Med Service: Active Provider Member Role: Primary Care Physician Address: Address: [address] [place] [address] Care Team Related Persons Name: ANGEL PFEIFFER Address: Home [address] [place] [address] Care Team Personnel Name: CYRUS LIANG MD Position: Physician Member Role: Collection Development Librarian Address: Address: [address] [place] [address] Name: VARGAS SERRA DO Position: P4 Physician - Primary Care Member Role: Primary Care Physician Address: Address: [address] [place] [address] Care Team Related Persons Name: ANGEL PFEIFFER Address: Home [address] [place] [id number] FOR RECORDS PERTAINING TO PATIENTS WHO ARE [...] BE BASED ON THE PRIMARY CLINICAL RECORDS. [employer] provides no warranty or guarantee of the accuracy or completeness of information in this document.
[2025-03-18 08:02] LABS: Cholesterol 151 mg/dL (<=200); Low Density Lipoprotein Calc. 76 mg/dL; Triglycerides 82 mg/dL; Very Low Density Lipoprotein 16 mg/dL (5-40); cholesterol:hdl ratio screen 2.56
[2025-03-18 08:11] LABS: AST(SGOT) 20 U/L (<=31); Alanine Aminotransfer ALT/SGPT 21 U/L (<=34); Albumin, Serum 4.1 g/dL (3.5-5.0); Alkaline Phosphatase 53 U/L (35-104); Anion Gap 10 (5-15); BUN 17 mg/dL (4-19); BUN/Creat Ratio 22.3 RATIO (10-20); Calcium,Total 9.4 mg/dL (7.6-11.0); Carbon Dioxide 24.8 mmol/L (21.0-32.0); Chloride 106 mmol/L (98-108); Globulin 2.5 g/dL (2.2-4.2); Glucose 105 mg/dL (70-99); Potassium 4.2 mmol/L (3.3-5.1)
== END | disposition home or self-care (01) ==
PROVIDERS: PCP Family Medicine; Referring Provider Family Medicine; Visit Provider Family Medicine
DX: Z00.00 Encounter for general adult medical examination without abnormal findings (principal); E03.9 Hypothyroidism, unspecified; Z13.1 Encounter for screening for diabetes mellitus; Z13.6 Encounter for screening for cardiovascular disorders
CPT/HCPCS: 36415; 80053; 80061; 84439; 84443

== ENCOUNTER → 2025-05-13 | Outpatient (CLI) | payer BC, SELFPAY ==
[2025-05-13 18:56] LABS: Hematocrit 36.1 % (37-47); Hemoglobin 12.2 g/dL (12.0-15.0); Immature Granulocytes Count 0.010 X10^3/uL (0.0-0.0); Mean Corp Hgb Conc 33.8 g/dL (32-36); Mean Corpuscular Volume 91.6 fL (81-99); Mean Platelet Vol. 10.9 fl (6.2-12.0); NRBC Flagged by Analyzer 0 % (0-5); Platelet Count 293 K/mm3 (150-450); RBC Distribution Width CV 12.3 % (11.6-14.6); RBC Distribution Width SD 41.1 fl (35.1-43.9); Red Blood Count 3.94 M/mm3 (4.2-5.4); White Blood Count 4.7 K/mm3 (4.4-11.0)
[2025-05-13 19:20] LABS: AST(SGOT) 22 U/L (<=31); Alanine Aminotransfer ALT/SGPT 26 U/L (<=34); Albumin, Serum 4.4 g/dL (3.5-5.0); Alkaline Phosphatase 58 U/L (35-104); Anion Gap 8 (5-15); BUN 19 mg/dL (4-19); BUN/Creat Ratio 26.3 RATIO (10-20); Calcium,Total 9.8 mg/dL (7.6-11.0); Carbon Dioxide 28.2 mmol/L (21.0-32.0); Chloride 104 mmol/L (98-108); Globulin 2.6 g/dL (2.2-4.2); Glucose 101 mg/dL (70-99); Potassium 4.3 mmol/L (3.3-5.1)
== END | disposition home or self-care (01) ==
LOC: MTLAB 16:59
PROVIDERS: PCP Family Medicine; Referring Provider Internal Medicine Rheumatology; Visit Provider Internal Medicine Rheumatology
DX: M06.079 Rheumatoid arthritis without rheumatoid factor, unspecified ankle and foot (principal); M79.7 Fibromyalgia; Z79.899 Other long term (current) drug therapy
CPT/HCPCS: 36415; 80053; 85025

== ENCOUNTER → 2025-05-13 | Outpatient (CLI) | payer BC, SELFPAY | END | disposition home or self-care (01) | LOC: MTRAD 16:16 | PROVIDERS: PCP Family Medicine; Referring Provider Clinical Nurse Specialist Adult Health; Visit Provider Clinical Nurse Specialist Adult Health | DX: M50.30 Other cervical disc degeneration, unspecified cervical region (principal) | CPT/HCPCS: 72052 ==

== ENCOUNTER 2025-07-19 10:28 | Day surgery (SDC) | payer BC, SELFPAY ==
[2025-07-19] VITALS (8 sets, daily range): BP systolic 107–124; BP diastolic 66–93; PULSE 64–71; RESP 14–16; TEMP 36.4–36.8; O2SAT 95–100; BMI 31.8
[2025-07-19] MEDS: Lactated Ringers 1,000 ML 15 ML IV (10:56)
--- NOTE | 2025-07-19 11:10 | RAD_ITS ---
PROCEDURE: FLUOR GUIDANCE FOR SPINE INJ 07/19/2025 REASON FOR EXAM: CAUDAL BLOCK TECHNIQUE: Procedure Code: RADSPN Modality: DX Procedure: FLUOR GUIDANCE FOR SPINE INJ. Fluoroscopy: 3 2 mGy. 1 image was submitted. COMPARISON: None FINDINGS: Intraoperative fluoroscopic services provided for caudal block. RAD/Fluor Guidance for Spine Inj IMPRESSION: Intraoperative fluoroscopic services provided for caudal block. Reading Location: [facility]
--- NOTE | 2025-07-19 11:30 | PCM.PRE.AN2 ---
ASA Classification* ASA Classification ASA Classification: 2 Assessment & Plan Anesthesia* Anesthesia Assessment Anesthesia Assessment: Discussed sedation and/or anesthesia options, risks, benefits, and alternatives with patient/parents/legal guardian/POA. Questions invited. The patient/parents/legal guardian/POA seems to understand and agrees to proceed with anesthesia plan. Reviewed the physical assessment, medical history, allergy history and patient home medications list prior to surgery/procedure/anesthetic and documented any changes. Performed airway and anesthesia risk assessments. Anesthesia Type Anesthesia Type: MAC History Source History Obtained from:: Patient and Chart Anesthesia Focused Assessment* Temperature: 97.8 F Pulse Rate: 71 Blood Pressure: 120/93 Respiratory Rate: 16 Pulse Ox: 100 Oxygen Delivery Method: Room Air Airway Assessment Mouth opens: 2 cm Mallampati Score: II Teeth Condition: Intact, Dentures and Upper Neck Range of motion (ROM): Full ROM Labs Anesthesia Preop lab: CBC WBC, (4.4-11.0) 4.7 K/mm3 05/13/25, 17:00 RBC, (4.2-5.4) 3.94 M/mm3 L 05/13/25, 17:00 Hgb, (12.0-15.0) 12.2 g/dL 05/13/25, 17:00 Hct, (37-47) 36.1 % L 05/13/25, 17:00 Plt Count, (150-450) 293 K/mm3 05/13/25, 17:00 CHEMISTRY Potassium, (3.3-5.1) 4.3 mmol/L 05/13/25, 17:00 Sodium, (133-145) 140 mmol/L 05/13/25, 17:00 Magnesium, (1.6-2.6) 2.0 mg/dL 04/25/23, 06:25 Phosphorus, (2.5-4.9) 2.5 mg/dL 04/25/23, 06:25 BUN, (4-19) 19 mg/dL 05/13/25, 17:00 Creatinine, (0.70-1.20) 0.70 mg/dL 05/13/25, 17:00 Glucose, (70-99) 101 mg/dL H 05/13/25, 17:00 TSH, (0.300-4.200) 2.100 uIU/mL 03/18/25, 06:06 COAG PT, (11.7-14.9) 13.7 SECONDS 11/28/17, 15:46 Pre-Assessment Diagnosis/Proposed Procedure Planned Operative Procedure(s): CAUDAL BLOCK Anesthesia History Anesthesia History - cloth bleaching range back tender: Anesthesia History - cloth bleaching range back tender Hx Hospitalization No 07/14/25 12:38 Any Problems With Anesthesia No 07/14/25 12:38 Cholinesterase deficiency No 07/14/25 12:38 You/Your Family Experience No 07/14/25 12:38 fever (hyperthermia) with Relationship Recent Exposure to Contagious No 07/19/25 10:46 Disease Does patient have nerve No 07/14/25 12:38 stimulator Patient instructed to have device shut off --Does patient have Pacemaker No 07/19/25 10:46 or ICD? When Was Last Pacemaker Check QUESTION #4 FULL TEXT: You/Your Family Experience fever (hyperthermia) with Anesthesia Any additional information?: No Last Oral Intake Last Oral intake: Last Oral Intake NPO since 06:00 07/19/25 10:46 Meds taken in AM with sips of Yes 07/19/25 10:46 water? Meds patient instructed to take am of surgery Any additional information?: No PONV PONV - cloth bleaching range back tender: PONV - cloth bleaching range back tender Female Yes 07/14/25 12:38 HX of Motion Sickness No 07/14/25 12:38 HX of N/V After Surgery No 07/14/25 12:38 Non-Smoker Yes 07/14/25 12:38 Duration of Surgery greater No 07/14/25 12:38 than 60 minutes Number of Risk Factors 2 07/14/25 12:38 PONV Score Moderate Risk 07/14/25 12:38 Any additional information?: No Height & Weight Height & Weight: Anesthesia: Height & Weight Height 5 ft 8 in 07/19/25 10:46 Weight: 95 kg 07/19/25 10:46 Body Mass Index (BMI) 31.8 07/19/25 10:46 Respiratory Assessment Respiratory Assessment - cloth bleaching range back tender: Respiratory Tract Infection Hx - cloth bleaching range back tender Hx Respiratory Tract Infection No 07/14/25 12:38 Any additional information?: No STOP Sleep Apnea STOP Sleep Apnea - cloth bleaching range back tender: STOP Sleep Apnea - cloth bleaching range back tender Hx Hypertension No 07/14/25 12:38 Hx Sleep Apnea Yes 07/14/25 12:38 CPAP Yes: Does not use anymore 07/14/25 12:38 BIPAP No 07/14/25 12:38 Do you snore loudly (louder than talking or can be heard Do you often feel tired/ fatigued/ sleepy during daytime? Has anyone observed you stop breathing during sleep? STOP Results Positive 07/14/25 12:38 QUESTION #5 FULL TEXT : Do you snore loudly (louder than talking or can be heard through closed doors)? Any additional information?: No Tobacco Use History Tobacco Use History - cloth bleaching range back tender: Tobacco Use History - cloth bleaching range back tender Tobacco Use Smoking Status Former smoker 07/14/25 12:38 Hx Tobacco Use No 07/14/25 12:38 Years Smoking Packs Smoked per Day Smoking Cessation Date was Yes - quit smoking within 15 07/14/25 12:38 within the last 15 years years Hx Smoking Cessation Date 08/05/22 07/14/25 12:38 Hx Smoking Cessation No 07/14/25 12:38 Counseling Any additional information?: No Hematologic Medial History Hematologic Hx - cloth bleaching range back tender: 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 Specify any problems Hx of Preganancy in last 3 No 07/14/25 12:38 Months Nurse Filling Out Transfusion DSCHRIBER 07/14/25 12:38 & Questions: Date: 07/14/25 07/14/25 12:38 Time: 12:39 07/14/25 12:38 Patient unable to answer at this time (ie. confused, unrespo Any additional information?: No /Reproduction History /Reproductive History - cloth bleaching range back tender: /Reproductive Hx- cloth bleaching range back tender Hx Now No 07/14/25 12:38 Gestational Age (in weeks): EDC: Hx Hx Para Hx Section SAB No 07/14/25 12:38 Does the father of the baby or his family experience fever w Father of the baby Malignant Hypertension history comment Any additional information?: No Active Medications Active Medications: Current Medications Generic Name Dose Route Start Last Admin Trade Name Freq PRN Reason Stop Dose Admin Lactated Ringer's 1,000 mls @ 15 mls/hr 07/19/25 10:45 07/19/25 10:56 IV 15 mls/hr .Q48H CR Administration PFSH Medical History (Updated 07/14/25 @ 12:41 by Fabby Arshad) Pain CPAP (continuous positive airway pressure) dependence Wears dentures Wears glasses Depression Thyroid disease Back pain History of hiatal hernia History of diverticulitis Gastric reflux Former smoker Arthritis, rheumatoid Fibromyalgia Arthritis Home Medications ?Medication ?Instructions ?Recorded ?Last Taken ?Type levothyroxine 112 mcg tablet 112 mcg PO MOTUWETHFRSA 06/25/13 07/19/25 History omeprazole 20 mg capsule,delayed 20 mg PO PRN Indigestion 11/27/17 05/24/24 History release ibuprofen 600 mg tablet 600 mg PO Q6H PRN PRN Mild-Mod 12/04/17 Unknown Rx Pain (1-12/12) #30 tabs cyclobenzaprine 10 mg tablet 10 mg PO TID PRN Muscle Spasm #20 10/18/23 Unknown Rx TABLETS tramadol 50 mg tablet 50 mg PO TID PRN pain 09/09/24 Unknown History methotrexate sodium 2.5 mg tablet 20 mg PO PEREZ 12/30/24 Unknown History Allergy/AdvReac Type Severity Reaction Status Date / Time ceftriaxone sodium (From Allergy Rash Verified 07/19/25 10:45 Rocephin) oxycodone AdvReac Nausea/Vom/ Verified 07/19/25 10:45 Diarrhea Family History Other Asthma COPD (chronic obstructive pulmonary disease) Diabetes Hypertension Thyroid disorder Surgical History Hx of tubal ligation Hx of bilateral breast reduction surgery Hx of hysterectomy Hx of colonoscopy History of tonsillectomy History of shoulder surgery History of neck surgery History of foot operation History of carpal tunnel release Social History Smoking Status: Former smoker alcohol intake: current alcohol intake frequency: holidays/special occasions only Review of Systems (Anesthesia) ROS Narrative System reviewed and no additional complaints, except as documented. Physical Exam Const alert, oriented x3 and average body habitus Orientation / Consciousness: awake HEENT dentition normal HEENT Narrative: upper dentures Neck full ROM Resp normal respiratory effort and normal air movement Auscultation: clear to auscultation bilaterally Cardio regular rate, regular rhythm and no murmurs Neuro oriented x3 and moves all extremities
[2025-07-19] MEDS: 0.9% Normal Saline (Pres. free 10 ML Vial ×2 (11:46)
[2025-07-19] MEDS: Lidocaine 1% (5 ml sdv) 5 ML Vial (11:47)
--- NOTE | 2025-07-19 11:50 | OP.PCM_ITS ---
Operative Report (Standard) Operative Information Date of Procedure: 07/19/25 Pre-Operative Diagnosis: Lumbosacral radiculopathy, lumbosacral degenerative disc disease, lumbosacral spinal stenosis Post-Operative Diagnosis: Lumbosacral radiculopathy, lumbosacral degenerative disc disease, lumbosacral spinal stenosis Surgery/Procedure Performed: Diagnostic/therapeutic caudal epidural steroid injection under fluoroscopic guidance rehabilitation tech: No Type of Anesthesia: Local MAC RN Documented Start/Stop Times: Operation Date: 07/19/25 12:10 Case Time Into Pre-Op 07/19/25 10:30 Anesthesia Start 07/19/25 11:39 Into Room 07/19/25 11:39 Procedure Start 07/19/25 11:45 Procedure End 07/19/25 11:48 Anesthesia End 07/19/25 11:49 Into Recovery 07/19/25 11:49 Out of Room 07/19/25 11:49 Procedure Start Time: 11:50 Procedure Stop Time: 11:50 Select all DRAINS/GRAFTS/IMPLANTS that apply: None Estimated Blood Loss: 0 Specimen collected: No Description of surgery: ANESTHESIA: MAC. BLOOD LOSS: Minimal. COMPLICATIONS: None. DESCRIPTION OF PROCEDURE: History and physical of today was reviewed. Risks and benefits of the procedure were explained. The patient understood and agreed to proceed. Informed consent was obtained. IV inserted per routine protocol. The patient was taken to the operating room and placed in the prone position with a pillow positioned underneath the abdomen. The lower back and tailbone area was prepped and draped in a sterile fashion using iodine x3. Under fluoroscopy guidance on a lateral view, the caudal space was identified. The skin and subcutaneous tissue was anesthetized with approximately 3 mL of 1% lidocaine using a 25-gauge regular needle. Under direct visualization with fluoroscopy, using a 22-gauge 3-1/2-inch spinal needle, the needle was advanced via the skin through the sacral hiatus. The tip of the needle was passed through the sacrococcygeal ligament and advanced to approximately S4 area. After negative aspiration of blood or CSF, a total of 3 mL of contrast was injected to confirm correct placement of the needle as well as cephalad spread. The spread was followed to approximately L5 area. After confirmation on AP as well as lateral view and repeated negative aspiration, a total of 15 mL of preservative-free 0.125% Marcaine with 80 mg of Depo-Medrol was injected easily. The needle was then removed intact. The patient experienced no sign or symptoms of intrathecal or intravascular injection. The patient experienced no paresthesia. The procedure was completed without any apparent difficulty or any complications. The patient appeared to tolerate it well. ASSESSMENT AND PLAN: This is a 55-year-old female with lumbosacral radiculopathy, lumbosacral d egenerative disc disease, lumbosacral spinal stenosis, status post diagnostic/therapeutic caudal epidural steroid injection under fluoroscopic guidance, patient will continue her current medications, patient will follow-up in approximately 1 to 2 weeks for reevaluation. Surgical Findings: 0 Complications Complications: No Admit VTE Documentation VTE Present on Admission: No VTE Mechan Device Prophylaxis: None VTE Pharm Prophylaxis ordered?: No
--- NOTE | 2025-07-19 11:58 | PCM.POST.ANE ---
Anesthesia: Postop Eval I Current Vital Signs Temperature: 98.3 F Pulse Rate: 65 Blood Pressure: 108/66 Respiratory Rate: 16 Pulse Ox: 98 Oxygen Delivery Method: Room Air Assessment Airway patent: Yes Spontaneous unlabored respirations: Yes Mental status: Awake and Calm nausea: No Vomiting: No Anesthesia Complication: No Fluid Hydration Crystalloid volume administer (ml): 200 Total IV fluid infused: 200 Progress Note Anesthesia document: Postop Eval 1 completed: Yes
--- NOTE | 2025-07-19 12:20 | POSTOPAN2_ITS ---
Anesthesia Postop Eval I Sum Postop Eval Completion status Anesthesia document: Postop Eval 1 completed: Yes Anesthesia Postop Eval I Summary Anesthesia Postop Eval I Summary: Anesthesia Postop Eval I: Assessment Summary Airway patent Yes 07/19/25 11:58 POND WORKER.[email or web address] Spontaneous unlabored Yes 07/19/25 11:58 POND WORKER.[email or web address] respirations Mental status Awake,Calm 07/19/25 11:58 POND WORKER.[email or web address] nausea No 07/19/25 11:58 POND WORKER.[email or web address] Vomiting No 07/19/25 11:58 POND WORKER.[email or web address] Anesthesia Postop Eval I: Fluid Summary Crystalloid volume administer 200 07/19/25 11:58 POND WORKER.[email or web address] (ml) Colloids volume administered ( ml) Blood Product volume administered (ml) Total IV fluid infused 200 07/19/25 11:58 POND WORKER.[email or web address] Anesthesia Postop Eval I: Summary Notes Anesthesia Complication No 07/19/25 11:58 POND WORKER.[email or web address] Anesthesia Complication Comment: Post-operative progress note Anesthesia: Postop Eval II Evaluation Mental status: Awake and Calm Pain Level: 0 nausea: No Vomiting: No Complications Anesthesia Complication: No
--- NOTE | 2025-07-19 12:20 | PCM.POSTANE2 ---
Anesthesia Postop Eval I Sum Postop Eval Completion status Anesthesia document: Postop Eval 1 completed: Yes Anesthesia Postop Eval I Summary Anesthesia Postop Eval I Summary: Anesthesia Postop Eval I: Assessment Summary Airway patent Yes 07/19/25 11:58 CORPORATE DEVELOPMENT INTERN.[email or web address] Spontaneous unlabored Yes 07/19/25 11:58 CORPORATE DEVELOPMENT INTERN.JBLOU respirations Mental status Awake,Calm 07/19/25 11:58 CORPORATE DEVELOPMENT INTERN.JBLOU nausea No 07/19/25 11:58 CORPORATE DEVELOPMENT INTERN.JBLOU Vomiting No 07/19/25 11:58 CORPORATE DEVELOPMENT INTERN.JBLOU Anesthesia Postop Eval I: Fluid Summary Crystalloid volume administer 200 07/19/25 11:58 CORPORATE DEVELOPMENT INTERN.JBLOU (ml) Colloids volume administered ( ml) Blood Product volume administered (ml) Total IV fluid infused 200 07/19/25 11:58 CORPORATE DEVELOPMENT INTERN.JBLOU Anesthesia Postop Eval I: Summary Notes Anesthesia Complication No 07/19/25 11:58 CORPORATE DEVELOPMENT INTERN.JBLOU Anesthesia Complication Comment: Post-operative progress note Anesthesia: Postop Eval II Evaluation Mental status: Awake and Calm Pain Level: 0 nausea: No Vomiting: No Complications Anesthesia Complication: No
== END 2025-07-19 12:17 | disposition home or self-care (01) ==
LOC: SDC 10:28 → AC 10:30
PROVIDERS: PCP Family Medicine; Referring Provider Anesthesiology Pain Medicine; Visit Provider Anesthesiology Pain Medicine
PROC: 3E0S3BZ Introduction of Anesthetic Agent into Epidural Space, Percutaneous Approach (ICD-10-PCS; CPT 62282; principal; 2025-07-19 12:05)
DX: M51.17 Intervertebral disc disorders with radiculopathy, lumbosacral region (principal); M48.07 Spinal stenosis, lumbosacral region; Z79.899 Other long term (current) drug therapy
CPT/HCPCS: 62323; 01992; 64483; 77003

== ENCOUNTER → 2025-07-28 | Outpatient (CLI) | payer BC, SELFPAY ==
--- NOTE | 2025-07-28 07:16 | RAD_ITS ---
EXAM: XR Bilateral Hips With Pelvis When Performed, 2 or 3 Views CLINICAL INDICATION: LEFT HIP PAIN, RA TECHNIQUE: Three or four views of the bilateral hips with pelvis when performed. COMPARISON: No relevant prior studies available. FINDINGS: BONES/JOINTS: Mild degenerative change of the hip joints, bilaterally. No acute fracture. No dislocation. SOFT TISSUES: Unremarkable. RAD/Hips B/L min 2 views w/ Pelvis IMPRESSION: Degenerative changes as above. Reading Location: [id number]
--- OUTSIDE RECORDS SUMMARY | 2025-07-28 07:17 | XMS RPT_ITS | CCD ---
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 Translations: [Other seborrheic dermatitis] Onset: 06-20-2007 Resolved: 05-02-2018 05-02-2018 Episodic Other inflammatory condition of skin (1 source) Pruritus of skin; Translations: [Pruritus, unspecified] Onset: 06-20-2007 Resolved: 05-02-2018 05-02-2018 Episodic Other injuries and conditions due to external causes (1 source) Unspecified injury of right wrist, hand and finger(s), initial encounter; Translations: [Unspecified injury of right wrist, hand and finger(s), initial encounter] Onset: 10-28-2024 Episodic Other nervous system disorders (2 sources) Carpal tunnel syndrome; Translations: [Carpal tunnel syndrome, unspecified upper limb] Onset: 01-03-2006 Resolved: 05-02-2018 02-13-2024 Chronic Other nervous system disorders (1 source) Lesion of ulnar nerve; Translations: [Lesion of ulnar nerve, unspecified upper limb] Onset: 01-03-2006 Resolved: 03-13-2006 02-13-2024 Chronic Other skin disorders (2 sources) Disorder of the skin and subcutaneous tissue, unspecified; Translations: [Disorder of the skin and subcutaneous tissue, unspecified] Onset: 02-07-2017 Episodic Other skin disorders (1 source) Nailbed deformity; Translations: [Nail disorder, unspecified] Onset: 02-07-2017 02-07-2017 Episodic Other skin disorders (10 sources) Acquired keratoderma; Translations: [Acquired keratosis [keratoderma] palmaris et plantaris] Onset: 03-20-2007 03-20-2007 Episodic Other skin disorders (1 source) Acne; Translations: [Other acne] Onset: 03-20-2007 Resolved: 05-02-2018 05-02-2018 Episodic Other skin disorders (1 source) Disorder of skin pigmentation; Translations: [Disorder of pigmentation, unspecified] Onset: 03-20-2007 Resolved: 05-02-2018 05-02-2018 Episodic Other skin disorders (1 source) Disorder of sebaceous gland; Translations: [Other specified follicular disorders] Onset: 03-20-2007 Resolved: 05-02-2018 05-02-2018 Episodic Residual codes; unclassified (1 source) Flushing; Translations: [Flushing] Onset: 03-20-2007 Resolved: 05-02-2018 05-02-2018 Episodic Spondylosis; intervertebral disc disorders; other back problems (4 sources) Chronic low back pain; Translations: [Lumbago with sciatica, right side] Onset: 10-02-2023 10-01-2023 Episodic Unclassified (1 source) Problem Varicose veins of lower extremity (9 sources) Venous varices; Translations: [Varicose veins of unspecified lower extremity with other complications] Onset: 09-25-2024 09-09-2024 Episodic Results Test Name Value Interpretation Reference Range Facility MA MAMMOGRAM SCREENING BILAT ERAL W/TOMOon 06-02-2025 MA MAMMOGRAM SCREENING BILATERAL W/ABDIRIZAK ORIGINAL FROM: [address] [address] PROCEDURE FOR: ERLINDA ZAPATA [address] [place] [address] Home: PID#: [id number] Exam#: [id number] : 1970 Age: 55 TO: VARGAS SERRA DO [address] [facility] [address] [place], [place] [address] Fax: NO FAX EXAMINATION: SCREENING DIGITAL BILATERAL MAMMOGRAM WITH TOMOSYNTHESIS, 05/31/2025 3:06 pm TECHNIQUE: Screening mammography of the bilateral breasts was performed with tomosynthesis. 2D standard and 3D tomosynthesis combination imaging performed through both breasts in the MLO and CC projection. Computer aided detection was utilized in the interpretation of this exam. COMPARISON: May 27, 2024, January 23, 2023 HISTORY: Breast cancer screening. FINDINGS: BREAST DENSITY: There are scattered areas of fibroglandular density. There are bilateral benign-type calcifications. There is no significant mass, architectural distortion or microcalcification. Fibroglandular pattern is stable. IMPRESSION: No mammographic evidence of malignancy. Continued screening with annual mammograms is recommended. Mari Johnsonck risk calculations, generated with the history provided, report this patient's 10 year risk and lifetime risk for developing breast cancer at 1.9% and 6.3%, respectively. Based on this assessment tool, if [...] addition to annual mammographic screening per the [employer]. BIRADS: MAMMOGRAM BI-RADS: 2: Benign finding RECALL: 1 year screening RECALL TYPE: mammo LETTER SENT: Normal BI-RADS 1 and 2 Interpreted by: Johanna Wilson Preliminary Report By: Johanna Wilson Electronically signed By Johanna Wilson Dictated Date: 06/02/2025 2:14:22 PM Prelim Date: 06/02/2025 2:15:53 PM Sign Date: 06/02/2025 2:15:53 PM Ordering Provider: VARGAS SERRA RP Capacity Planning Engineer: ROMIE GRANT RT(R)(M)(CT) letter sent: Normal BI-RADS 1 and 2 Mammogram BI-RADS: 2 Benign Normal [facility] CBC W/Diff, Automatedon 10-0 Absolute Lymph 1.84 X10 3/uL Normal 0.83-4.51 [facility] Comment on above: Performed By: #### L 500.4050, L100.0100 #### [facility] [address] [place], [address] Absolute Neut 2.3 X10 3/uL Normal 2.0-7.7 [facility] Comment on above: Performed By: #### L 500.4050, L100.0100 #### [facility] [address] [place], [address] Basophils/100 WBC (Bld) 1.1 % High 0-1 [facility] Comment on above: Performed By: #### L 500.4050, L100.0100 #### [facility] [address] [place], [address] Eosinophils/100 WBC (Bld) 4.2 % Normal 0-5 [facility] Comment on above: Performed By: #### L 500.4050, L100.0100 #### [facility] [address] [place], [address] Erythrocyte distribution width (RBC) [Ratio] 12.3 % Normal 11.6-14.6 [facility] Comment on above: Performed By: #### L 500.4050, L100.0100 #### [facility] [address] [place], [address] Hematocrit (Bld) [Volume fraction] 36.1 % Low 37-47 [facility] Comment on above: Performed By: #### L 500.4050, L100.0100 #### [facility] [address] [place], [address] Hemoglobin (Bld) [Mass/Vol] 12.2 g/dL Normal 12.0-15.0 [facility] Comment on above: Performed By: #### L 500.4050, L100.0100 #### [facility] [address] [place], [address] IG% 0.200 Normal 0.0-0.9 [facility] Comment on above: Result Comment: IG% - Immature Granulocytes (promyelocytes, myelocytes and metamyelocytes) > 1% indicates that a LEFT SHIFT is Present. Performed By: #### L 500.4050, L100.0100 #### [facility] [address] [place], [address] Lymphocytes/100 WBC (Bld) 38.9 % Normal 19-41 [facility] Comment on above: Performed By: #### L 500.4050, L100.0100 #### [facility] [address] [place], [address] MCH (RBC) [Entitic mass] 31.0 pg Normal 27.0-32.0 [facility] Comment on above: Performed By: #### L 500.4050, L100.0100 #### [facility] [address] [place], [address] MCHC (RBC) [Mass/Vol] 33.8 g/dL Normal 32-36 [facility] Comment on above: Performed By: #### L 500.4050, L100.0100 #### [facility] [address] [place], [address] MCV (RBC) [Entitic vol] 91.6 fL Normal 81-99 [facility] Comment on above: Performed By: #### L 500.4050, L100.0100 #### [facility] [address] [place], [address] Monocytes/100 WBC (Bld) 8.0 % Normal 0-10 [facility] Comment on above: Performed By: #### L 500.4050, L100.0100 #### [facility] [address] [place], [address] Neutrophils/100 WBC (Bld) 47.6 % Normal 47-70 [facility] Comment on above: Performed By: #### L 500.4050, L100.0100 #### [facility] [address] [place], [address] Nucleated RBC (Bld) [#/Vol] 0 10*3/uL Normal 0-5 [facility] Comment on above: Performed By: #### L 500.4050, L100.0100 #### [facility] [address] [place], [address] Platelet mean volume (Bld) [Entitic vol] 10.9 fL Normal 6.2-12.0 [facility] Comment on above: Performed By: #### L 500.4050, L100.0100 #### [facility] [address] [place], [address] Platelets (Bld) [#/Vol] 293 10*3/uL Normal 150-450 [facility] Comment on above: Performed By: #### L 500.4050, L100.0100 #### [facility] [address] [place], [address] RBC (Bld) [#/Vol] 3.94 10*6/uL Low 4.2-5.4 [facility] Comment on above: Performed By: #### L 500.4050, L100.0100 #### [facility] [address] [place], [address] RDW SD 41.1 fl Normal 35.1-43.9 [facility] Comment on above: Performed By: #### L 500.4050, L100.0100 #### [facility] [address] [place], [address] WBC (Bld) [#/Vol] 4.7 10*3/uL Normal 4.4-11.0 [facility] Comment on above: Performed By: #### L 500.4050, L100.0100 #### [facility] [address] [place], [address] Cerv Spine Obl/Flex/Ext Comp on 05-13-2025 Cerv Spine Obl/Flex/Ext Comp [facility] Imaging Services [address] [place] [address] Cerv Spine Obl/Flex/Ext Comp MR#: [id number] Acct: [id number] Name: ERLINDA ZAPATA Rep #: [id number] : 1970 F 55 From: [place] Monique MD PCP: Dr. Vargas Serra DO Status: REG CLI Study: Cerv Spine Obl/Flex/Ext Comp Date of Exam: 04/29 Exam# [id number] Ordering Dr: Nessa Luis PROCEDURE: CERV SPINE OBL/FLEX/EXT COMP 05/13/2025 REASON FOR EXAM: CERVICAL DDD TECHNIQUE: Procedure Code: RADSPCFE Modality: DX Procedure: CERV SPINE OBL/FLEX/EXT COMP FINDINGS: No acute fracture or subluxation. Anterior fusion of C5 and C6 with an intervertebral disc spacer at C5-6 is noted, without radiographic evidence of hardware complication. Moderate disc space narrowing at C4-5, and mild disc space narrowing at C three-four, with small anterior osteophytes at C3 and C4. Flexion and extension views reveal no ligamentous laxity. The relationship of C1 on C2 appears normal. The prevertebral soft tissues appear unremarkable. RAD/Cerv Spine Obl/Flex/Ext Comp IMPRESSION: As above. Reading Location: [facility] CC: Nessa Luis; Dr. Vargas Serra DO Physical Medicine Physician: Signed Normal [facility] Comprehensive Metabolic Prof ilon 05-13-2025 Albumin [Mass/Vol] 4.4 g/dL Normal 3.5-5.0 [facility] Comment on above: Performed By: #### L 500.4050, L100.0100 ####[facility] [address] [place], [address] Albumin/Globulin [Mass ratio] 1.7 {ratio} Normal 0.9-2.4 [facility] Comment on above: Performed By: #### L 500.4050, L100.0100 ####[facility] [address] [place], [address] ALK PHOS 58 U/L Normal 35-104 [facility] Comment on above: Performed By: #### L 500.4050, L100.0100 ####[facility] [address] [place], [address] ALT [Catalytic activity/Vol] 26 U/L Normal <=34 [facility] Comment on above: Performed By: #### L 500.4050, L100.0100 ####[facility] [address] [place], [address] AST [Catalytic activity/Vol] 22 U/L Normal <=31 [facility] Comment on above: Performed By: #### L 500.4050, L100.0100 ####[facility] [address] [place], [address] Bilirubin [Mass/Vol] 0.32 mg/dL Normal 0.00-1.30 [facility] Comment on above: Performed By: #### L 500.4050, L100.0100 ####[facility] [address] [place], [address] BUN/CRE 26.3 RATIO High 10-20 [facility] Comment on above: Performed By: #### L 500.4050, L100.0100 ####[facility] [address] [place], [address] Calcium [Mass/Vol] 9.8 mg/dL Normal 7.6-11.0 [facility] Comment on above: Performed By: #### L 500.4050, L100.0100 ####[facility] [address] [place], [address] Chloride [Moles/Vol] 104 mmol/L Normal 98-108 [facility] Comment on above: Performed By: #### L 500.4050, L100.0100 ####[facility] [address] [place], [address] CO2 [Moles/Vol] 28.2 mmol/L Normal 21.0-32.0 [facility] Comment on above: Performed By: #### L 500.4050, L100.0100 ####[facility] [address] [place], [address] Creatinine [Mass/Vol] 0.70 mg/dL Normal 0.70-1.20 [facility] Comment on above: Performed By: #### L 500.4050, L100.0100 ####[facility] [address] [place], [address] GAP 8 Normal 5-15 [facility] Comment on above: Performed By: #### L 500.4050, L100.0100 ####[facility] [address] [place], [address] GFR/1.73 sq M.predicted among non-blacks MDRD (S/P/Bld) [Vol rate/Area] 102 mL/min/{1.73_m2} Normal >60 [facility] Comment on above: Result Comment: mL/m in/1.73m2 CKD-EPI Creatinine Equation (2020) Performed By: #### L 500.4050, L100.0100 ####[facility] [address] [place], [address] Globulin (S) [Mass/Vol] 2.6 g/dL Normal 2.2-4.2 [facility] Comment on above: Performed By: #### L 500.4050, L100.0100 ####[facility] [address] [place], [address] Glucose [Mass/Vol] 101 mg/dL High 70-99 [facility] Comment on above: Performed By: #### L 500.4050, L100.0100 ####[facility] [address] [place], [address] Potassium [Moles/Vol] 4.3 mmol/L Normal 3.3-5.1 [facility] Comment on above: Performed By: #### L 500.4050, L100.0100 ####[facility] [address] [place], [address] Sodium [Moles/Vol] 140 mmol/L Normal 133-145 [facility] Comment on above: Performed By: #### L 500.4050, L100.0100 ####[facility] [address] [place], [address] T PROT 6.9 g/dL Normal 5.9-8.4 [facility] Comment on above: Performed By: #### L 500.4050, L100.0100 ####[facility] [address] [place], [address] Urea nitrogen [Mass/Vol] 19 mg/dL Normal 4-19 [facility] Comment on above: Performed By: #### L 500.4050, L100.0100 ####[facility] [address] [place], [address] Anion gap in Serum or Plasma Ordered By: Vargas Serra on 03-18-2025 Anion gap [Moles/Vol] 10 mmol/L 5-15 [facility] BUN/creatinine ratioOrdered By: Vargas Serra on 03-18-2025 Urea nitrogen/Creatinine [Mass ratio] 22.3 mg/mg High 10-20 [facility] Bilirubin, totalOrdered By: Vargas Serra on 03-18-2025 Bilirubin [Mass/Vol] 0.30 mg/dL 0.00-1.30 [facility] Calculated very low density lipoprotein (VLDL) cholesterol measurementOrdered By: Vargas Serra on 03-18-2025 Calculated very low density lipoprotein (VLDL) cholesterol measurement 16 mg/dL 5-40 [facility] Carbon dioxide, total [Moles /volume] in Central venous bloodOrdered By: Vargas Serra on 03-18-2025 CO2 [Moles/Vol] 24.8 mmol/L 21.0-32.0 [facility] Chloride assayOrdered By: Gaston gudelia Maryse on 03-18-2025 Chloride [Moles/Vol] 106 mmol/L 98-108 [facility] Comprehensive Metabolic Prof ilon 03-18-2025 Albumin [Mass/Vol] 4.1 g/dL Normal 3.5-5.0 [facility] Comment on above: Performed By: #### L 506.0400, L500.4050, L500.4100, L501.9520 #### [facility] [address] [place], [address] Albumin/Globulin [Mass ratio] 1.6 {ratio} Normal 0.9-2.4 [facility] Comment on above: Performed By: #### L 506.0400, L500.4050, L500.4100, L501.9520 #### [facility] [address] [place], [address] ALK PHOS 53 U/L Normal 35-104 [facility] Comment on above: Performed By: #### L 506.0400, L500.4050, L500.4100, L501.9520 #### [facility] [address] [place], [address] ALT [Catalytic activity/Vol] 21 U/L Normal <=34 [facility] Comment on above: Performed By: #### L 506.0400, L500.4050, L500.4100, L501.9520 #### [facility] [address] [place], [address] AST [Catalytic activity/Vol] 20 U/L Normal <=31 [facility] Comment on above: Result Comment: Hemo lysis present, Results??could be affected. ?? Performed By: #### L 506.0400, L500.4050, L500.4100, L501.9520 #### [facility] [address] [place], [address] Bilirubin [Mass/Vol] 0.30 mg/dL Normal 0.00-1.30 [facility] Comment on above: Performed By: #### L 506.0400, L500.4050, L500.4100, L501.9520 #### [facility] [address] [place], [address] BUN/CRE 22.3 RATIO High 10-20 [facility] Comment on above: Performed By: #### L 506.0400, L500.4050, L500.4100, L501.9520 #### [facility] [address] [place], [address] Calcium [Mass/Vol] 9.4 mg/dL Normal 7.6-11.0 [facility] Comment on above: Performed By: #### L 506.0400, L500.4050, L500.4100, L501.9520 #### [facility] [address] [place], [address] Chloride [Moles/Vol] 106 mmol/L Normal 98-108 [facility] Comment on above: Performed By: #### L 506.0400, L500.4050, L500.4100, L501.9520 #### [facility] [address] [place], [address] CO2 [Moles/Vol] 24.8 mmol/L Normal 21.0-32.0 [facility] Comment on above: Performed By: #### L 506.0400, L500.4050, L500.4100, L501.9520 #### [facility] [address] [place], [address] Creatinine [Mass/Vol] 0.76 mg/dL Normal 0.70-1.20 [facility] Comment on above: Performed By: #### L 506.0400, L500.4050, L500.4100, L501.9520 #### [facility] [address] [place], [address] GAP 10 Normal 5-15 [facility] Comment on above: Performed By: #### L 506.0400, L500.4050, L500.4100, L501.9520 #### [facility] [address] [place], [address] GFR/1.73 sq M.predicted among non-blacks MDRD (S/P/Bld) [Vol rate/Area] 92 mL/min/{1.73_m2} Normal >60 [facility] Comment on above: Result Comment: mL/m in/1.73m2 CKD-EPI Creatinine Equation (2020) Performed By: #### L 506.0400, L500.4050, L500.4100, L501.9520 #### [facility] [address] [place], [address] Globulin (S) [Mass/Vol] 2.5 g/dL Normal 2.2-4.2 [facility] Comment on above: Performed By: #### L 506.0400, L500.4050, L500.4100, L501.9520 #### [facility] [address] [place], [address] Glucose [Mass/Vol] 105 mg/dL High 70-99 [facility] Comment on above: Performed By: #### L 506.0400, L500.4050, L500.4100, L501.9520 #### [facility] [address] [place], [address] Potassium [Moles/Vol] 4.2 mmol/L Normal 3.3-5.1 [facility] Comment on above: Result Comment: Hemo lysis present, Results??could be affected. ?? Performed By: #### L 506.0400, L500.4050, L500.4100, L501.9520 #### [facility] [address] [place], [address] Sodium [Moles/Vol] 141 mmol/L Normal 133-145 [facility] Comment on above: Performed By: #### L 506.0400, L500.4050, L500.4100, L501.9520 #### [facility] [address] [place], [address] T PROT 6.6 g/dL Normal 5.9-8.4 [facility] Comment on above: Performed By: #### L 506.0400, L500.4050, L500.4100, L501.9520 #### [facility] [address] [place], [address] Urea nitrogen [Mass/Vol] 17 mg/dL Normal 4-19 [facility] Comment on above: Performed By: #### L 506.0400, L500.4050, L500.4100, L501.9520 #### [facility] [address] [place], [address] Glomerular filtration rate ( GFR) estimation/1.73 sq m using serum, plasma, or whole bOrdered By: Vargas Serra on 03-18-2025 GFR/1.73 sq M.predicted among non-blacks MDRD (S/P/Bld) [Vol rate/Area] 92 mL/min/{1.73_m2} >60 [facility] Comment on above: mL/min/1.73m2 CKD-EP I Creatinine Equation (2020) LDL calc ser/plasOrdered By: Vargas Serra on 03-18-2025 Cholesterol in LDL [Mass/Vol] 76 mg/dL [facility] Comment on above: Okfudmlnll=456-287 m g/dL & Higher Dqwk=358 mg/dL or greaterFriedwald Equation for LDL-C Laboratory - Chemistry and C hemistry - challengeOrdered By: Vargas Serra on 03-18-2025 AST [Catalytic activity/Vol] 20 U/L <32 [facility] Comment on above: Hemolysis present, R esults could be affected. Lipid Profileon 03-18-2025 CHOL:HDL 2.56 Normal [facility] Comment on above: Performed By: #### L 506.0400, L500.4050, L500.4100, L501.9520 #### [facility] [address] [place], [address] Cholesterol [Mass/Vol] 151 mg/dL Normal <=200 [facility] Comment on above: Result Comment: Chol esterol level, Desirable <200 mg/dL Borderline high cholesterol 200-239 mg/dL High cholesterol >=240 mg/dL Recommendations of the NCEP Adult Treatment Panel for the following risk-cutoff thresholds for the [place] population. Performed By: #### L 506.0400, L500.4050, L500.4100, L501.9520 #### [facility] [address] [place], [address] Cholesterol in HDL [Mass/Vol] 59 mg/dL Normal [facility] Comment on above: Result Comment: Saira onal Cholesterol Education Program (NCEP) guidelines: <40 mg/dL: Low HDL-cholesterol (major risk factor for CHD) >= 60 mg/dL: High HDL-cholesterol (negative risk factor for CHD) HDL-cholesterol is affected by a number of factors, e.g. smoking, exercise, hormones, sex and age. Performed By: #### L 506.0400, L500.4050, L500.4100, L501.9520 #### [facility] [address] [place], [address] Cholesterol in LDL [Mass/Vol] 76 mg/dL Normal [facility] Comment on above: Result Comment: Bord bxvjoc=705-788 mg/dL Higher Mzup=082 mg/dL or greater Friedwald Equation for LDL-C Performed By: #### L 506.0400, L500.4050, L500.4100, L501.9520 #### [facility] [address] [place], [address] Cholesterol in VLDL [Mass/Vol] 16 mg/dL Normal 5-40 [facility] Comment on above: Performed By: #### L 506.0400, L500.4050, L500.4100, L501.9520 #### [facility] [address] [place], [address] Triglyceride [Mass/Vol] 82 mg/dL Normal [facility] Comment on above: Result Comment: The drugs N-Acetylcysteine and Metamizole may falsely depress this assay. Normal range: <150 mg/dL Borderline High: 150-199 mg/dL High: 200-499 mg/dL Very High: >500 mg/dL Performed By: #### L 506.0400, L500.4050, L500.4100, L501.9520 #### [facility] [address] [place], [address] Potassium measurement (mass/ volume)Ordered By: Vargas Serra on 03-18-2025 Potassium (Unsp spec) [Mass/Vol] 4.2 mmol/L 3.3-5.1 [facility] Comment on above: Hemolysis present, R esults could be affected. Screening total cholesterol/ high density lipoprotein (HDL) cholesterol ratioOrdered By: Vargas Serra on 03-18-2025 Cholesterol.total/Farnaz sterol in HDL [Mass ratio] 2.56 {ratio} [facility] Serum creatinine measurement (mass/volume)Ordered By: Vargas Serra on 03-18-2025 Creatinine [Mass/Vol] 0.76 mg/dL 0.70-1.20 [facility] Serum globulin measurementOr dered By: Vargas Serra on 03-18-2025 Globulin (S) [Mass/Vol] 2.5 g/dL 2.2-4.2 [facility] Serum glucose measurement (m ass/volume)Ordered By: Vargas Serra on 03-18-2025 Glucose [Mass/Vol] 105 mg/dL High 70-99 [facility] Serum or plasma alanine berrios otransferase (ALT) measurementOrdered By: Vargas Serra on 03-18-2025 ALT [Catalytic activity/Vol] 21 U/L <35 [facility] Serum or plasma albumin allan urement (mass/volume)Ordered By: Vargas Serra on 03-18-2025 Albumin [Mass/Vol] 4.1 g/dL 3.5-5.0 [facility] Serum or plasma albumin/glob ulin mass ratioOrdered By: Vargas Serra on 03-18-2025 Albumin/Globulin [Mass ratio] 1.6 {ratio} 0.9-2.4 [facility] Serum or plasma alkaline jorge alberto sphatase measurementOrdered By: Vargas Serra on 03-18-2025 ALP [Catalytic activity/Vol] 53 U/L 35-104 [facility] Serum or plasma calcium allan urement (mass/volume)Ordered By: Vargas Serra 03-18-2025 Calcium [Mass/Vol] 9.4 mg/dL 7.6-11.0 [facility] Serum or plasma cholesterol in HDL measurement (mass/volume)Ordered By: Vargas Serra on 03-18-2025 Cholesterol in HDL [Mass/Vol] 59 mg/dL >40 [facility] Comment on above: National Cholesterol Education Program (NCEP) guidelines:<40 mg/dL: Low HDL-cholesterol (major risk factor for CHD)>= 60 mg/dL: High HDL-cholesterol (negative risk factor for CHD)HDL-cholesterol is affected by a number of factors, e.g. smoking, exercise, hormones, sex and age. Serum or plasma cholesterol measurement (mass/volume)Ordered By: Vargas Serra on 03-18-2025 Cholesterol [Mass/Vol] 151 mg/dL <201 [facility] Comment on above: Cholesterol level, D esirable <200 mg/dLBorderline high cholesterol 200-239 mg/dLHigh cholesterol >=240 mg/dLRecommendations of the NCEP Adult Treatment Panel for the following risk-cutoff thresholds for the [place] population. Serum or plasma urea nitroge n measurement (mass/volume)Ordered By: Vargas Serra on 03-18-2025 Urea nitrogen [Mass/Vol] 17 mg/dL 4-19 [facility] Sodium levelOrdered By: Rashaad Serra on 03-18-2025 Sodium [Moles/Vol] 141 mmol/L 133-145 [facility] T4 Free Directon 03-18-2025 T4 FREE DIRECT 1.10 ng/dL Normal 0.76-1.46 [facility] Comment on above: Performed By: #### L 506.0400, L500.4050, L500.4100, L501.9520 #### [facility] [address] [place], [place], [id number] T4 freeOrdered By: Vargas Springer on 03-18-2025 Free T4 [Mass/Vol] 1.10 ng/dL 0.76-1.46 [facility] TSH DL <= 0.005 mIU/L QnOrde red By: Vargas Serra on 03-18-2025 TSH Qn 2.100 uIU/mL 0.300-4.200 [facility] Thyroid Stim Hormone (TSH)on 03-18-2025 TSH 2.100 uIU/mL Normal 0.300-4.200 [facility] Comment on above: Performed By: #### L 506.0400, L500.4050, L500.4100, L501.9520 #### [facility] [address] [place], [place], [id number] Total proteinOrdered By: Lori Serra on 03-18-2025 Protein [Mass/Vol] 6.6 g/dL 5.9-8.4 [facility] Triglycerides measurementOrd ered By: Vargas Serra on 03-18-2025 Triglyceride [Mass/Vol] 82 mg/dL <199 [facility] Comment on above: The drugs N-Acetylcy steine and Metamizole may falsely depress this assay. Normal range: <150 mg/dLBorderline High: 150-199 mg/dLHigh: 200-499 mg/dLVery High: >500 mg/dL Absolute lymphocyte countOrd ered By: Sheyla Cruz on 02-19-2025 Lymphocytes Auto (Unsp spec) [#/Vol] 1.76 10*3/uL 0.83-4.51 [facility] Absolute neutrophil countOrd ered By: Sheyla Cruz on 02-19-2025 Neutrophils (Bld) [#/Vol] 2.2 10*3/uL 2.0-7.7 [facility] Anion gap in Serum or Plasma Ordered By: Sheyla Cruz on 02-19-2025 Anion gap [Moles/Vol] 10 mmol/L 5-15 [facility] Automated lymphocyte count a s percentage of total leukocytesOrdered By: Sheyla Cruz on 02-19-2025 Lymphocytes/100 WBC Auto (Unsp spec) 38.1 % -41 [facility] BUN/creatinine ratioOrdered By: Sheylagalina Cruz on 02-19-2025 Urea nitrogen/Creatinine [Mass ratio] 22.3 mg/mg High 10-20 [facility] Basophil percentageOrdered B y: Sheyla Cruz on 02-19-2025 Basophils/100 WBC (Bld) 1.1 % High 0-1 [facility] Bilirubin, totalOrdered By: Sheyla Cruz on 02-19-2025 Bilirubin [Mass/Vol] 0.44 mg/dL 0.00-1.30 [facility] CBC W/Diff, Automatedon 02-02 Absolute Lymph 1.76 X10 3/uL Normal 0.83-4.51 [facility] Comment on above: Performed By: #### L 500.4050, L100.0100 #### [facility] [address] [place], [address] Absolute Neut 2.2 X10 3/uL Normal 2.0-7.7 [facility] Comment on above: Performed By: #### L 500.4050, L100.0100 #### [facility] [address] [place], [address] Basophils/100 WBC (Bld) 1.1 % High 0-1 [facility] Comment on above: Performed By: #### L 500.4050, L100.0100 #### [facility] [address] [place], [address] Eosinophils/100 WBC (Bld) 3.9 % Normal 0-5 [facility] Comment on above: Performed By: #### L 500.4050, L100.0100 #### [facility] [address] [place], [address] Erythrocyte distribution width (RBC) [Ratio] 13.1 % Normal 11.6-14.6 [facility] Comment on above: Performed By: #### L 500.4050, L100.0100 #### [facility] [address] [place], [address] Hematocrit (Bld) [Volume fraction] 38.9 % Normal 37-47 [facility] Comment on above: Performed By: #### L 500.4050, L100.0100 #### [facility] [address] [place], [address] Hemoglobin (Bld) [Mass/Vol] 13.4 g/dL Normal 12.0-15.0 [facility] Comment on above: Performed By: #### L 500.4050, L100.0100 #### [facility] [address] [place], [address] IG% 0.200 Normal 0.0-0.9 [facility] Comment on above: Result Comment: IG% - Immature Granulocytes (promyelocytes, myelocytes and metamyelocytes) > 1% indicates that a LEFT SHIFT is Present. Performed By: #### L 500.4050, L100.0100 #### [facility] [address] [place], [address] Lymphocytes/100 WBC (Bld) 38.1 % Normal 19-41 [facility] Comment on above: Performed By: #### L 500.4050, L100.0100 #### [facility] [address] [place], [address] MCH (RBC) [Entitic mass] 30.7 pg Normal 27.0-32.0 [facility] Comment on above: Performed By: #### L 500.4050, L100.0100 #### [facility] [address] [place], [address] MCHC (RBC) [Mass/Vol] 34.4 g/dL Normal 32-36 [facility] Comment on above: Performed By: #### L 500.4050, L100.0100 #### [facility] [address] [place], [address] MCV (RBC) [Entitic vol] 89.0 fL Normal 81-99 [facility] Comment on above: Performed By: #### L 500.4050, L100.0100 #### [facility] [address] [place], [address] Monocytes/100 WBC (Bld) 8.7 % Normal 0-10 [facility] Comment on above: Performed By: #### L 500.4050, L100.0100 #### [facility] [address] [place], [address] Neutrophils/100 WBC (Bld) 48.0 % Normal 47-70 [facility] Comment on above: Performed By: #### L 500.4050, L100.0100 #### [facility] [address] [place], [address] Nucleated RBC (Bld) [#/Vol] 0 10*3/uL Normal 0-5 [facility] Comment on above: Performed By: #### L 500.4050, L100.0100 #### [facility] [address] [place], [address] Platelet mean volume (Bld) [Entitic vol] 10.5 fL Normal 6.2-12.0 [facility] Comment on above: Performed By: #### L 500.4050, L100.0100 #### [facility] [address] [place], [address] Platelets (Bld) [#/Vol] 336 10*3/uL Normal 150-450 [facility] Comment on above: Performed By: #### L 500.4050, L100.0100 #### [facility] [address] [place], [address] RBC (Bld) [#/Vol] 4.37 10*6/uL Normal 4.2-5.4 [facility] Comment on above: Performed By: #### L 500.4050, L100.0100 #### [facility] [address] [place], [address] RDW SD 41.8 fl Normal 35.1-43.9 [facility] Comment on above: Performed By: #### L 500.4050, L100.0100 #### [facility] [address] [place], [address] WBC (Bld) [#/Vol] 4.6 10*3/uL Normal 4.4-11.0 [facility] Comment on above: Performed By: #### L 500.4050, L100.0100 #### [facility] [address] [place], [address] Carbon dioxide, total [Moles /volume] in Central venous bloodOrdered By: Sheyla Cruz on 02-19-2025 CO2 [Moles/Vol] 24.6 mmol/L 21.0-32.0 [facility] Chloride assayOrdered By: Eusebio Cruz on 02-19-2025 Chloride [Moles/Vol] 107 mmol/L 98-108 [facility] Comprehensive Metabolic Prof ilon 02-19-2025 Albumin [Mass/Vol] 4.4 g/dL Normal 3.5-5.0 [facility] Comment on above: Performed By: #### L 500.4050, L100.0100 #### [facility] [address] [place], [address] Albumin/Globulin [Mass ratio] 1.8 {ratio} Normal 0.9-2.4 [facility] Comment on above: Performed By: #### L 500.4050, L100.0100 #### [facility] [address] [place], [address] ALK PHOS 67 U/L Normal 35-104 [facility] Comment on above: Performed By: #### L 500.4050, L100.0100 #### [facility] [address] [place], [address] ALT [Catalytic activity/Vol] 25 U/L Normal <=34 [facility] Comment on above: Performed By: #### L 500.4050, L100.0100 #### [facility] [address] [place], [address] AST [Catalytic activity/Vol] 22 U/L Normal <=31 [facility] Comment on above: Performed By: #### L 500.4050, L100.0100 #### [facility] [address] [place], [address] Bilirubin [Mass/Vol] 0.44 mg/dL Normal 0.00-1.30 [facility] Comment on above: Performed By: #### L 500.4050, L100.0100 #### [facility] [address] [place], [address] BUN/CRE 22.3 RATIO High 10-20 [facility] Comment on above: Performed By: #### L 500.4050, L100.0100 #### [facility] [address] [place], [address] Calcium [Mass/Vol] 9.7 mg/dL Normal 7.6-11.0 [facility] Comment on above: Performed By: #### L 500.4050, L100.0100 #### [facility] [address] [place], [address] Chloride [Moles/Vol] 107 mmol/L Normal 98-108 [facility] Comment on above: Performed By: #### L 500.4050, L100.0100 #### [facility] [address] [place], [address] CO2 [Moles/Vol] 24.6 mmol/L Normal 21.0-32.0 [facility] Comment on above: Performed By: #### L 500.4050, L100.0100 #### [facility] [address] [place], [address] Creatinine [Mass/Vol] 0.71 mg/dL Normal 0.70-1.20 [facility] Comment on above: Performed By: #### L 500.4050, L100.0100 #### [facility] [address] [place], [address] GAP 10 Normal 5-15 [facility] Comment on above: Performed By: #### L 500.4050, L100.0100 #### [facility] [address] [place], [address] GFR/1.73 sq M.predicted among non-blacks MDRD (S/P/Bld) [Vol rate/Area] 101 mL/min/{1.73_m2} Normal >60 [facility] Comment on above: Result Comment: mL/m in/1.73m2 CKD-EPI Creatinine Equation (2020) Performed By: #### L 500.4050, L100.0100 #### [facility] [address] [place], [address] Globulin (S) [Mass/Vol] 2.5 g/dL Normal 2.2-4.2 [facility] Comment on above: Performed By: #### L 500.4050, L100.0100 #### [facility] [address] [place], [address] Glucose [Mass/Vol] 99 mg/dL Normal 70-99 [facility] Comment on above: Performed By: #### L 500.4050, L100.0100 #### [facility] [address] [place], [address] Potassium [Moles/Vol] 4.1 mmol/L Normal 3.3-5.1 [facility] Comment on above: Performed By: #### L 500.4050, L100.0100 #### [facility] [address] [place], [address] Sodium [Moles/Vol] 141 mmol/L Normal 133-145 [facility] Comment on above: Performed By: #### L 500.4050, L100.0100 #### [facility] [address] [place], [address] T PROT 6.9 g/dL Normal 5.9-8.4 [facility] Comment on above: Performed By: #### L 500.4050, L100.0100 #### [facility] [address] [place], [address] Urea nitrogen [Mass/Vol] 16 mg/dL Normal 4-19 [facility] Comment on above: Performed By: #### L 500.4050, L100.0100 #### [facility] [address] [place], [address] Eosinophil percentageOrdered By: Sheyla Cruz on 02-19-2025 Eosinophils/100 WBC (Bld) 3.9 % 0-5 [facility] Erythrocyte distribution wid th ratioOrdered By: Sheyla Cruz on 02-19-2025 Erythrocyte distribution width (RBC) [Ratio] 13.1 % 11.6-14.6 [facility] Erythrocyte distribution wid th standard deviationOrdered By: Sheyla Cruz on 02-19-2025 Erythrocyte distribution width (RBC) [Ratio] 41.8 fl 35.1-43.9 [facility] Glomerular filtration rate ( GFR) estimation/1.73 sq m using serum, plasma, or whole bOrdered By: Sheyla Cruz on 02-19-2025 GFR/1.73 sq M.predicted among non-blacks MDRD (S/P/Bld) [Vol rate/Area] 101 mL/min/{1.73_m2} >60 [facility] Comment on above: mL/min/1.73m2 CKD-EP I Creatinine Equation (2020) Hematocrit Auto (Bld) [Volum e fraction]Ordered By: Sheyla Cruz on 02-19-2025 Hematocrit (Bld) [Volume fraction] 38.9 % 37-47 [facility] Hemoglobin measurementOrdere d By: Sheyla Cruz on 02-19-2025 Hemoglobin (Bld) [Mass/Vol] 13.4 g/dL 12.0-15.0 [facility] Immature granulocytes/100 WB C Auto (Bld)Ordered By: Sheyla Cruz on 02-19-2025 Immature granulocytes/100 WBC (Bld) 0.200 % 0.0-0.9 [facility] Comment on above: IG% - Immature Granu locytes (promyelocytes, myelocytes and metamyelocytes) > 1% indicates that a LEFT SHIFT is Present. Laboratory - Chemistry and C hemistry - challengeOrdered By: Sheyla Cruz on 02-19-2025 AST [Catalytic activity/Vol] 22 U/L <32 [facility] MCV (mean corpuscular volume ) determinationOrdered By: Sheyla Cruz 02-19-2025 MCV (RBC) [Entitic vol] 89.0 fL 81-99 [facility] Mean corpuscular hemoglobin (MCH) determinationOrdered By: Sheyla Cruz 02-19-2025 MCH (RBC) [Entitic mass] 30.7 pg 27.0-32.0 [facility] Mean corpuscular hemoglobin concentration (MCHC) determinationOrdered By: Sheyla Cruz 02-19-2025 MCHC (RBC) [Mass/Vol] 34.4 g/dL 32-36 [facility] Mean platelet volume determi nationOrdered By: Sheyla Cruz on 02-19-2025 Platelet mean volume (Bld) [Entitic vol] 10.5 fL 6.2-12.0 [facility] Monocyte percentageOrdered B y: Sheyla Cruz on 02-19-2025 Monocytes/100 WBC (Bld) 8.7 % 0-10 [facility] Neutrophil percentageOrdered By: Sheyla Cruz on 02-19-2025 Neutrophils/100 WBC (Bld) 48.0 % 47-70 [facility] Nucleated red blood cell per centageOrdered By: Sheyla Cruz on 02-19-2025 Nucleated RBC/100 WBC (Bld) [Ratio] 0 % 0-5 [facility] Platelet countOrdered By: Eusebio Cruz on 02-19-2025 Platelets (Bld) [#/Vol] 336 10*3/uL 150-450 [facility] Potassium measurement (mass/ volume)Ordered By: Sheyla Cruz on 02-19-2025 Potassium (Unsp spec) [Mass/Vol] 4.1 mmol/L 3.3-5.1 [facility] RBC Auto (Bld) [#/Vol]Ordere d By: Sheyla Cruz on 02-19-2025 RBC (Bld) [#/Vol] 4.37 10*6/uL 4.2-5.4 [facility] Serum creatinine measurement (mass/volume)Ordered By: Sheyla Cruz on 02-19-2025 Creatinine [Mass/Vol] 0.71 mg/dL 0.70-1.20 [facility] Serum globulin measurementOr dered By: Sheyla Cruz on 02-19-2025 Globulin (S) [Mass/Vol] 2.5 g/dL 2.2-4.2 [facility] Serum glucose measurement (m ass/volume)Ordered By: Sheyla Cruz on 02-19-2025 Glucose [Mass/Vol] 99 mg/dL 70-99 [facility] Serum or plasma alanine berrios otransferase (ALT) measurementOrdered By: Sheyla Cruz on 02-19-2025 ALT [Catalytic activity/Vol] 25 U/L <35 [facility] Serum or plasma albumin allan urement (mass/volume)Ordered By: Sheyla Cruz on 02-19-2025 Albumin [Mass/Vol] 4.4 g/dL 3.5-5.0 [facility] Serum or plasma albumin/glob ulin mass ratioOrdered By: Sheyla Cruz on 02-19-2025 Albumin/Globulin [Mass ratio] 1.8 {ratio} 0.9-2.4 [facility] Serum or plasma alkaline jorge alberto sphatase measurementOrdered By: Sheyla Cruz on 02-19-2025 ALP [Catalytic activity/Vol] 67 U/L 35-104 [facility] Serum or plasma calcium allan urement (mass/volume)Ordered By: Sheyla Cruz on 02-19-2025 Calcium [Mass/Vol] 9.7 mg/dL 7.6-11.0 [facility] Serum or plasma urea nitroge n measurement (mass/volume)Ordered By: Sheyla Cruz on 02-19-2025 Urea nitrogen [Mass/Vol] 16 mg/dL 4-19 [facility] Sodium levelOrdered By: Madeleine Cruz on 02-19-2025 Sodium [Moles/Vol] 141 mmol/L 133-145 [facility] Total proteinOrdered By: Estee Cruz on 02-19-2025 Protein [Mass/Vol] 6.9 g/dL 5.9-8.4 [facility] White blood cell (WBC) count Ordered By: Sheyla Cruz on 02-19-2025 WBC (Bld) [#/Vol] 4.6 10*3/uL 4.4-11.0 [facility] FT3on 01-20-2025 Free T3 [Mass/Vol] 2.35 pg/mL Normal 2.30-4.00 [facility] Comment on above: Performed By: #### F T4, FT3, TSH #### [facility] [address] [address] FT4on 01-20-2025 Free T4 [Mass/Vol] 0.82 ng/dL Normal 0.76-1.46 [facility] Comment on above: Performed By: #### F T4, FT3, TSH #### [facility] [address] [place], [place] [address] LABORATORYOrdered By: SYSTEM SYSTEM on 01-20-2025 Free T3 [Mass/Vol] 2.35 pg/mL Normal 2.30 - 4. 00 pg/mL AO ADM SS Free T4 [Mass/Vol] 0.82 ng/dL Normal 0.76 - 1. 46 ng/dL AO ADM SS TSH Qn 0.18 m[IU]/L Low 0.36 - 3.74 mcIU/mL AO ADM SS TSHon 01-20-2025 TSH Qn 0.18 m[IU]/L Low 0.36-3.[address] [facility] Comment on above: Performed By: #### F T4, FT3, TSH #### [place] [address] [place], [place] [address] Fluor Guidance for Spine Inj on 01-04-2025 Fluor Guidance for Spine Inj [facility] Imaging Services [address] [place] [address] Fluor Guidance for Spine Inj MR#: [id number] Acct: [id number] Name: ERLINDA ZAPATA TOAN Rep #: [id number] : 1970 F 54 From: Bereket Pimentel PCP: Dr. Vargas Serra DO Status: [facility] Study: Fluor Guidance for Spine Inj Date of Exam: 09/29 Exam# [id number] Ordering Dr: Heron Xiao MD PROCEDURE: FLUOR GUIDANCE FOR SPINE INJ 01/04/2025 REASON FOR EXAM: CAUDAL BLOCK TECHNIQUE: Fluoroscopy was performed for spine injection. COMPARISON: None. RAD/Fluor Guidance for Spine Inj IMPRESSION: Fluoroscopy was performed for spine injection. A solitary fluoroscopic image was also obtained. Reading Location: [address] CC: Dr. Heron Xiao MD; Dr. Vargas Serra DO Physical Medicine Physician: Signed Normal [facility] MR/POSTOP.ANEon 01-04-2025 MR/POSTOP.ANE [facility] Medical Records Department [address] [place] [address] Anesthesia Postop Eval I 01/04/25 0931 MR#: [id number] Acct: [id number] Name: ANGEL ZAPATAJoya JOYA Rep #: [id number] : 1970 54 From: Sage Michelle PCP: Dr. Vargas Serra, DO Status:[facility] Y Race: C Location: [place] [address] Anesthesia: Postop Eval I Current Vital Signs [...] Anesthesia document: Postop Eval 1 completed: Yes 01/04/25 0934 Date Sage Hernandez Signature: Date CC: Signed Normal [facility] MR/[id number] 01-04-2025 /POST[address] Medical Records Department [facility] [place] [address] Anesthesia Postop Eval II 01/04/25 1038 MR#: [id number] Acct: [id number] Name: JODILESERLINDAYULIYA JOYA Rep #: [id number] : 1970 54 From: Suman May MD PCP: Dr. Vargas Serra, DO Status:[facility] Y Race: C Location: [facility] Anesthesia Postop Eval I Sum Postop Eval [...] Anesthesia Complication: No 01/04/25 1038 Date Suman May MD Cosigner Signature: Date CC: Signed Normal [facility] Operative Reporton 5 Operative Report [facility] Medical Records Department [address] [place] [address] Operative Report 01/04/25921 MR#: [id number] Acct: [id number] Name: ERLINDA ZAPATA TOAN Rep #: [id number] : 1970 54 From: Heron Xiao MD PCP: Dr. Vargas Serra, DO Status:[facility] Location: [place] [address] Operative Report (Standard) Operative Information Date of Procedure: 01/04/25 Pre-Operative Diagnosis: Lumbosacral radiculopathy, lumbosacral degenerative disc disease, lumbosacral spinal stenosis Post-Operative Diagnosis: Lumbosacral radiculopathy, lumbosacral degenerative disc disease, lumbosacral spinal stenosis Surgery/Procedure Performed: Diagnostic/therapeutic caudal epidural steroid injection under fluoroscopic guidance oil house attendant: No Type of Anesthesia: Local MAC RN Documented Start/Stop Times: Operation Date: 01/04/25 09:45 Case Time Into Pre-Op 01/04/25 08:07 Anesthesia Start 01/04/25 09:12 Into Room 01/04/25 09:12 Procedure Start 01/04/25 09:17 Procedure End 01/04/25 09:21 Procedure Start Time: :23 Procedure Stop Time: Select all DRAINS/GRAFTS/IMPLANTS that apply: None Estimated [...] MD; Dr. Vargas Serra, DO Signed Normal [facility] BVPCRon 12-29-2024 Bacterial Vaginosis Negative Normal Negative [facility] Comment on above: Result Comment: Mole cular methodology performed [facility] the [facility] [place] [facility]. Performed By: #### C TPCR, CVTV, NGPCR1, BVPCR #### [place] [address] CVTVon 12-29-2024 Namita glabrata Negative Normal Negative [facility] Comment on above: Performed By: #### C TPCR, CVTV, NGPCR1, BVPCR #### [place] [address] Namita Species Negative Normal Negative [facility] Comment on above: Result Comment: Mole cular methodology performed on the [employer] [place] System. Performed By: #### C TPCR, CVTV, NGPCR1, BVPCR #### [place] [address] Trichomonas vaginalis Negative Normal Negative [facility] Comment on above: Performed By: #### C TPCR, CVTV, NGPCR1, BVPCR #### [place] [address] CTPCRon 12-26-[address]24 C[address] trachomatis Interp See CT Interp N Normal See CT Interp N [facility] Comment on above: Result Comment: Clinical Interpretation: C. trachomatis DNA not detected. Specimen is presumptive negative for C. trachomatis. A negative result does not preclude C. trachomatis infection because results depend on adequate specimen collection, absence of inhibitors, and sufficient DNA to be detected. Performed By: #### C TPCR, CVTV, NGPCR1, BVPCR #### [place] [address] C.trachomatis PCR Negative Normal Negative [facility] Comment on above: Result Comment: Mole cular (PCR) assay performed on the Rose Nadeen 4800 system. Performed By: #### C TPCR, CVTV, NGPCR1, BVPCR #### [place] [address] Chlam Source Cervix Normal [facility] Comment on above: Performed By: #### C TPCR, CVTV, NGPCR1, BVPCR #### [place] [address] [id number] 12-26-2024 GC PCR Source Cervix Normal [facility] Comment on above: Performed By: #### C TPCR, CVTV, NGPCR1, BVPCR #### [place] [address] N. gonorrhoeae (PCR) Negative Normal Negative [facility] Comment on above: Result Comment: Mole cular (PCR) assay performed on the Rose Nadeen 4800 System. Performed By: #### C TPCR, CVTV, NGPCR1, BVPCR #### [place] [address] N. gonorrhoeae Interp See NG Interp N Normal See NG Interp N [facility] Comment on above: Result Comment: Clinical Interpretation: N. gonorrhoeae DNA not detected. Specimen is presumptive negative for N. gonorrhoeae. A negative result does not preclude Neisseria gonorrhoeae infection because results depend on adequate specimen collection, absence of inhibitors, and sufficient DNA to be detected. Performed By: #### C TPCR, CVTV, NGPCR1, BVPCR #### [place] [address] LABORATORYOrdered By: Nellie Blum on 12-24-2024 C. trachomatis DNA KERRY+probe Ql (Unsp spec) Negative 2 (12/24/24 4:33 PM) Normal Negative [facility] Auto Viro/Sero SS Comment on above: Interpretive Data: M mario (PCR) assay performed on the Rose Nadeen [...] N. gonorrhoeae DNA KERRY+probe Ql (Unsp spec) See NG Interp N [...] SS Comment on above: Interpretive Data: M susancular (PCR) assay performed on the Rose Nadeen 4800 System. Laboratory - Specimen inform ationOrdered By: Adeola Blum on 12-24-2024 Specimen source Nom (Unsp spec) Cervix (12/24/24 4:33 PM) Normal Auto Viro/Sero SS FT3on 11-17-2024 Free T3 [Mass/Vol] 3.47 pg/mL Normal 2.30-4.00 [facility] Comment on above: Performed By: #### T SH, FT4, FT3 #### [facility] [address] [place], [place] [address] FT4on 11-17-2024 Free T4 [Mass/Vol] 1.13 ng/dL Normal 0.76-1.46 [facility] Comment on above: Performed By: #### C TPCR, CVTV, NGPCR1, BVPCR #### [facility] [address] [place] [address] TSHon 11-17-2024 TSH Qn 0.02 m[IU]/L Low 0.36-3.[address] [facility] Comment on above: Performed By: #### T SH, FT4, FT3 #### [facility] [address] [place], [place] [address] HIV Viral Load Quanton 10-24 HIV-1 RNA, PCR < 20 Normal . [facility] Comment on above: Result Comment: HIV- 1 RNA not detected The reportable range for this assay is 20 to 10,000,000 copies HIV-1 RNA/mL. Performed By: #### L 3100.0200, L3100.0440, L3890.4000 ####[facility] [address] [place], [place], [id number] log10 HIV-1 RNA TNP Normal . [facility] Comment on above: Result Comment: Resu lt Units: [id number]/mL Unable to calculate result since non-numeric result obtained for component test. Performed at: [address] [id number] Process Mold Technician: Yosi Mcdermott MD, Phone: [phone] Performed By: #### L 3100.0200, L3100.0440, L3890.4000 ####[facility] [address] [place], [place], [id number] Hepatitis A IgM Antibodyon 0 10-23-2024 HEPATITIS A-IgM Negative Normal Negative [facility] Comment on above: Result Comment: A ne gative anti-HAV IgM result suggests no recent or current HAV infection. Performed By: #### L 3100.0200, L3100.0440, L3890.4000 ####[facility] [address] [place], [place], [id number] Hepatitis B Core AB IgMon HEP B CORE,IgM Negative Normal Negative [facility] Comment on above: Result Comment: Perf ormed at: [facility] [address] [id number] Process Mold Technician: Cyrus Feng PhD, Phone: [phone] Performed By: #### L 3100.0200, L3100.0440, L3890.4000 ####[facility] [address] [place], [address] Emergency Department Summary on 10-22-2024 Emergency Department Summary [facility] Medical Records Department [address] [place] [address] Emergency Department Summary 10/22/24 MR#: [id number] Acct: [id number] Name: ERLINDA ZAPATA Rep #: [id number] : 1970 54 From: Howard Michelle DO [...] her last tetanus shot was updated here. [facility] Medical History Wears dentures Wears glasses Depression [...] PRN PRN Mild-Mod 09/22 Unknown Rx Pain (1-5/) #30 tabs liothyronine 5 mcg tablet 5 [...] follow commands knew that she was at [facility] year is 2024 Skin: Small poke from [...] she is (more content not included)... Normal [facility] HBV surface Ab Ql (S)Ordered By: Howard Michelle on 10-22-2024 Hepatitis B Surface Antibody Non-Reactive [facility] Comment on above: <8.5 mIU/mL: Non-Miranda ctive8.5<= x <11.5 mIU/mL: Indeterminate>=11.5 mIU/mL: Reactive Non Reactive: Inconsistent with immunity less than <10 mIU/mL Reactive: Consistent with immunity greater than or equal to 10 mIU/mL HBV surface Ag Ql (S)Ordered By: Howard Michelle on 10-22-2024 Hepatitis B Surface Antigen Non-Reactive Nonreactive [facility] Comment on above: Reactive: Presumptiv e evidence of HBV. Repeatedly reactive samples must be confirmed using a neutralization test ([employer] HBsAg Confirmatory Test)Non-Reactive: HBsAg not detected; does not exclude the possibility of exposure to HBV HIV 1 RNA KERRY+probe [Log #/V ol]Ordered By: Howard Michelle on 10-22-2024 HIV-1 RNA (PCR) log10 Value TNP [facility] Comment on above: Test not performedRe sult Units: [id number]/mLUnable to calculate result since non-numeric resultobtained for component test.Performed at: - [address] [id number] Director: Yosi Mcdermott MD, Phone: [phone] Hepatitis A virus IgM antibo dy assayOrdered By: Howard Michelle on 10-22-2024 Hepatitis A IgM Antibody Negative Negative [facility] Comment on above: A negative anti-HAV IgM result suggests no recent orcurrent HAV infection. Hepatitis B virus core IgM a ntibody assayOrdered By: Howard Michelle on 10-22-2024 Hepatitis B Core IgM Antibody Negative Negative [facility] Comment on above: Performed at: [address] [id number] Director: Cyrus Feng PhD, Phone: [phone] Hepatitis C antibodyOrdered By: Howard Michelle on 10-22-2024 Hepatitis C Antibody Non-Reactive Nonreactive [facility] Comment on above: Reactive: Presumptiv e evidence of antibodies to HCV. Follow CDC recommendations for supplemental testing.Non-Reactive: Antibodies to HCV were not detected; does not exclude the possibility of exposure to HCVReactive Results are presumptive evidence of antibodies to HCV. Follow CDC recommendations for supplemental testing.Order confirmation testing: HCV Quant by PCR testing - HCVPCR #[id number] Non Reactive: < 0.8 Equivocal: >/= 0.8 to < 1.0 Reactive: >/= 1.0The CDC requires that a reactive/equivocal HCV antibody result be sent out for confirmation. HCV Quant by PCR testing. L3890.6006on 10-22-2024 HIV Non-Reactive Normal Nonreactive [facility] Comment on above: Order Comment: Reaso n for Exam: stuck with [employer] at work Result Comment: Non- Reactive Reactive Repeatedly reactive samples must be confirmed according to CDC recommended confirmatory algorithms. The subresults for either HIVAG or AHIV can be used as an aid in the selection of the confirmation algorithm for reactive samples. Send out specimens with Reactive results to [facility] for confirmation. Order the HIV antibody detection and differentiation: lc#[id number] Performed By: #### L 3890.6102, L3890.6202, L3890.6006, L3890.6301 ####[facility] [address] [place], [place], [id number] L3890.6102on 10-22-2024 HEP B Surf Ag Non-Reactive Normal Nonreactive [facility] Comment on above: Order Comment: Reaso n for Exam: stuck with [employer] at work Result Comment: Reac tive: Presumptive evidence of HBV. Repeatedly reactive samples must be confirmed using a neutralization test ([employer] HBsAg Confirmatory Test) Non-Reactive: HBsAg not detected; does not exclude the possibility of exposure to HBV Performed By: #### L 3890.6102, L3890.6202, L3890.6006, L3890.6301 ####[facility] [address] [place], [place], [address] L3890.6202on 10-22-2024 HEP B Surf Ab Non-Reactive Normal [facility] Comment on above: Order Comment: Reaso n for Exam: stuck with [employer] at work Result Comment: <8.5 mIU/mL: Non-Reactive 8.5<= x <11.5 mIU/mL: Indeterminate >=11.5 mIU/mL: Reactive Non Reactive: Inconsistent with immunity less than <10 mIU/mL Reactive: Consistent with immunity greater than or equal to 10 mIU/mL Performed By: #### L 3890.6102, L3890.6202, L3890.6006, L3890.6301 ####[facility] [address] [place], [place], [id number] L3890.6301on 10-22-2024 Hepatitis C Ab Non-Reactive Normal Nonreactive [facility] Comment on above: Order Comment: Reaso [...] HCV Quant by PCR testing - HCVPCR #[id number] Non Reactive: < 0.8 Equivocal: >/= 0.8 to < 1.0 Reactive: >/= 1.0 The CDC requires that a reactive/equivocal HCV antibody result be sent out for confirmation. HCV Quant by PCR testing. Performed By: #### L 3890.6102, L3890.6202, L3890.6006, L3890.6301 ####[facility] [address] [place], [place], [id number] Laboratory - Microbiology an d Antimicrobial susceptibilityOrdered By: Howard Michelle on 10-22-2024 HBV surface Ag Ql (S) Non-Reactive Nonreactive [facility] Comment on above: Reactive: Presumptiv e evidence of HBV. Repeatedly reactive samples must be confirmed using a neutralization test ([employer] HBsAg Confirmatory Test)Non-Reactive: HBsAg not detected; does not exclude the possibility of exposure to HBV No Panel InformationOrdered By: Howard Michelle on 10-22-2024 HIV (1&2) Antibody Non-Reactive Nonreactive [facility] Comment on above: Non-ReactiveReactive Repeatedly reactive samples must be confirmed according to CDC recommended confirmatory algorithms. The subresults for either HIVAG or AHIV can be used as an aid in the selection of the confirmation algorithm for reactive samples.Send out specimens with Reactive results to [facility] for confirmation.Order the HIV antibody detection and differentiation: #[id number] Plasma HIV 1 RNA viral load by probe and target amplification method (log number/voluOrdered By: Howard Michelle on 10-22-2024 HIV 1 RNA KERRY+probe [Log #/Vol] TNP [facility] Comment on above: Test not performedRe sult Units: [id number]/mLUnable to calculate result since non-numeric resultobtained for component test.Performed at: [address] [id number] Director: Yosi Mcdermott MD, Phone: [phone] Quantitative HIV-1 RNA measu rement by PCROrdered By: Howard Michelle on 10-22-2024 HIV-1 RNA Ultraquantitative (PCR) < 20 copies/mL . [facility] Comment on above: HIV-1 RNA not detect edThe reportable range for this assay is 20 to 10,000,000copies HIV-1 RNA/mL. Serum hepatitis B virus surf dania antibody detectionOrdered By: Howard Michelle on 10-22-2024 HBV surface Ab Ql (S) Non-Reactive [facility] Comment on above: <8.5 mIU/mL: Non-Beaumont ctive8.5<= x <11.5 mIU/mL: Indeterminate>=11.5 mIU/mL: Reactive Non Reactive: Inconsistent with immunity less than <10 mIU/mL Reactive: Consistent with immunity greater than or equal to 10 mIU/mL Absolute lymphocyte countOrd ered By: Sheyla Cruz on 10-21-2024 Lymphocytes Auto (Unsp spec) [#/Vol] 2.10 10*3/uL 0.83-4.51 [facility] Absolute neutrophil countOrd ered By: Sheylagalina Cruz on 10-21-2024 Neutrophils (Bld) [#/Vol] 3.5 10*3/uL 2.0-7.7 [facility] Anion gap in Serum or Plasma Ordered By: Sheyla Cruz on 10-21-2024 Anion gap [Moles/Vol] 12 mmol/L - [facility] Automated lymphocyte count a s percentage of total leukocytesOrdered By: Sheyla Cruz on 10-21-2024 Lymphocytes/100 WBC Auto (Unsp spec) 33.4 % [facility] BUN/creatinine ratioOrdered By: Sheylagalina Cruz on 10-21-2024 Urea nitrogen/Creatinine [Mass ratio] 20.2 mg/mg High 05-24 [facility] Basophil percentageOrdered B y: Sheyla Cruz on 10-21-2024 Basophils/100 WBC (Bld) 0.8 % 0-1 [facility] Bilirubin, totalOrdered By: Sheyla Cruz on 10-21-2024 Bilirubin [Mass/Vol] 0.30 mg/dL 0.00-1.30 [facility] CBC W/Diff, Automatedon 10-03 Absolute Lymph 2.10 X10 3/uL Normal 0.83-4.51 [facility] Comment on above: Performed By: #### L 100.0100, L500.4050 ####[facility] [address] [place], [address] Absolute Neut 3.5 X10 3/uL Normal 2.0-7.7 [facility] Comment on above: Performed By: #### L 100.0100, L500.4050 ####[facility] [address] [place], [address] Basophils/100 WBC (Bld) 0.8 % Normal 0-1 [facility] Comment on above: Performed By: #### L 100.0100, L500.4050 ####[facility] [address] [place], [address] Eosinophils/100 WBC (Bld) 1.4 % Normal 0-5 [facility] Comment on above: Performed By: #### L 100.0100, L500.4050 ####[facility] [address] [place], [address] Erythrocyte distribution width (RBC) [Ratio] 12.8 % Normal 11.6-14.6 [facility] Comment on above: Performed By: #### L 100.0100, L500.4050 ####[facility] [address] [place], [address] Hematocrit (Bld) [Volume fraction] 39.9 % Normal 37-47 [facility] Comment on above: Performed By: #### L 100.0100, L500.4050 ####[facility] [address] [place], [address] Hemoglobin (Bld) [Mass/Vol] 13.6 g/dL Normal 12.0-15.0 [facility] Comment on above: Performed By: #### L 100.0100, L500.4050 ####[facility] [address] [place], [address] IG% 0.200 Normal 0.0-0.9 [facility] Comment on above: Result Comment: IG% - Immature Granulocytes (promyelocytes, myelocytes and metamyelocytes) > 1% indicates that a LEFT SHIFT is Present. Performed By: #### L 100.0100, L500.4050 ####[facility] [address] [place], [address] Lymphocytes/100 WBC (Bld) 33.4 % Normal 19-41 [facility] Comment on above: Performed By: #### L 100.0100, L500.4050 ####[facility] [address] [place], [address] MCH (RBC) [Entitic mass] 30.3 pg Normal 27.0-32.0 [facility] Comment on above: Performed By: #### L 100.0100, L500.4050 ####[facility] [address] [place], [address] MCHC (RBC) [Mass/Vol] 34.1 g/dL Normal 32-36 [facility] Comment on above: Performed By: #### L 100.0100, L500.4050 ####[facility] [address] [place], [address] MCV (RBC) [Entitic vol] 88.9 fL Normal 81-99 [facility] Comment on above: Performed By: #### L 100.0100, L500.4050 ####[facility] [address] [place], [address] Monocytes/100 WBC (Bld) 8.3 % Normal 0-10 [facility] Comment on above: Performed By: #### L 100.0100, L500.4050 ####[facility] [address] [place], [address] Neutrophils/100 WBC (Bld) 55.9 % Normal 47-70 [facility] Comment on above: Performed By: #### L 100.0100, L500.4050 ####[facility] [address] [place], [address] Nucleated RBC (Bld) [#/Vol] 0 10*3/uL Normal 0-5 [facility] Comment on above: Performed By: #### L 100.0100, L500.4050 ####[facility] [address] [place], [address] Platelet mean volume (Bld) [Entitic vol] 10.3 fL Normal 6.2-12.0 [facility] Comment on above: Performed By: #### L 100.0100, L500.4050 ####[facility] [address] [place], [address] Platelets (Bld) [#/Vol] 342 10*3/uL Normal 150-450 [facility] Comment on above: Performed By: #### L 100.0100, L500.4050 ####[facility] [address] [place], [address] RBC (Bld) [#/Vol] 4.49 10*6/uL Normal 4.2-5.4 [facility] Comment on above: Performed By: #### L 100.0100, L500.4050 ####[facility] [address] [place], [address] RDW SD 41.2 fl Normal 35.1-43.9 [facility] Comment on above: Performed By: #### L 100.0100, L500.4050 ####[facility] [address] [place], [address] WBC (Bld) [#/Vol] 6.3 10*3/uL Normal 4.4-11.0 [facility] Comment on above: Performed By: #### L 100.0100, L500.4050 ####[facility] [address] [place], [address] Carbon dioxide, total [Moles /volume] in Central venous bloodOrdered By: Sheyla Cruz on 10-21-2024 CO2 [Moles/Vol] 24.1 mmol/L 21.0-32.0 [facility] Chloride assayOrdered By: Eusebio Cruz on 10-21-2024 Chloride [Moles/Vol] 104 mmol/L 98-108 [facility] Comprehensive Metabolic Prof ilon 10-21-2024 Albumin [Mass/Vol] 4.5 g/dL Normal 3.5-5.0 [facility] Comment on above: Performed By: #### L 100.0100, L500.4050 ####[facility] [address] [place], [address] Albumin/Globulin [Mass ratio] 1.6 {ratio} Normal 0.9-2.4 [facility] Comment on above: Performed By: #### L 100.0100, L500.4050 ####[facility] [address] [place], [address] ALK PHOS 68 U/L Normal 35-104 [facility] Comment on above: Performed By: #### L 100.0100, L500.4050 ####[facility] [address] [place], [address] ALT [Catalytic activity/Vol] 24 U/L Normal <=34 [facility] Comment on above: Performed By: #### L 100.0100, L500.4050 ####[facility] [address] [place], [address] AST [Catalytic activity/Vol] 19 U/L Normal <=31 [facility] Comment on above: Performed By: #### L 100.0100, L500.4050 ####[facility] [address] [place], [address] Bilirubin [Mass/Vol] 0.30 mg/dL Normal 0.00-1.30 [facility] Comment on above: Performed By: #### L 100.0100, L500.4050 ####[facility] [address] [place], [address] BUN/CRE 20.2 RATIO High 10-20 [facility] Comment on above: Performed By: #### L 100.0100, L500.4050 ####[facility] [address] [place], [address] Calcium [Mass/Vol] 9.8 mg/dL Normal 7.6-11.0 [facility] Comment on above: Performed By: #### L 100.0100, L500.4050 ####[facility] [address] [place], [address] Chloride [Moles/Vol] 104 mmol/L Normal 98-108 [facility] Comment on above: Performed By: #### L 100.0100, L500.4050 ####[facility] [address] [place], [address] CO2 [Moles/Vol] 24.1 mmol/L Normal 21.0-32.0 [facility] Comment on above: Performed By: #### L 100.0100, L500.4050 ####[facility] [address] [place], [address] Creatinine [Mass/Vol] 0.80 mg/dL Normal 0.70-1.20 [facility] Comment on above: Performed By: #### L 100.0100, L500.4050 ####[facility] [address] [place], [address] GAP 12 Normal 5-15 [facility] Comment on above: Performed By: #### L 100.0100, L500.4050 ####[facility] [address] [place], [address] GFR/1.73 sq M.predicted among non-blacks MDRD (S/P/Bld) [Vol rate/Area] 87 mL/min/{1.73_m2} Normal >60 [facility] Comment on above: Result Comment: mL/m in/1.73m2 CKD-EPI Creatinine Equation (2020) Performed By: #### L 100.0100, L500.4050 ####[facility] [address] [place], [address] Globulin (S) [Mass/Vol] 2.8 g/dL Normal 2.2-4.2 [facility] Comment on above: Performed By: #### L 100.0100, L500.4050 ####[facility] [address] [place], [address] Glucose [Mass/Vol] 90 mg/dL Normal 70-99 [facility] Comment on above: Performed By: #### L 100.0100, L500.4050 ####[facility] [address] [place], [address] Potassium [Moles/Vol] 3.9 mmol/L Normal 3.3-5.1 [facility] Comment on above: Performed By: #### L 100.0100, L500.4050 ####[facility] [address] [place], [address] Sodium [Moles/Vol] 140 mmol/L Normal 133-145 [facility] Comment on above: Performed By: #### L 100.0100, L500.4050 ####[facility] [address] [place], [address] T PROT 7.3 g/dL Normal 5.9-8.4 [facility] Comment on above: Performed By: #### L 100.0100, L500.4050 ####[facility] [address] [place], [address] Urea nitrogen [Mass/Vol] 16 mg/dL Normal 4-19 [facility] Comment on above: Performed By: #### L 100.0100, L500.4050 ####[facility] [address] [place], [address] Eosinophil percentageOrdered By: Sheyla Cruz on 10-21-2024 Eosinophils/100 WBC (Bld) 1.4 % 0-5 [facility] Erythrocyte distribution wid th ratioOrdered By: Sheyla Cruz on 10-21-2024 Erythrocyte distribution width (RBC) [Ratio] 12.8 % 11.6-14.6 [facility] Erythrocyte distribution wid th standard deviationOrdered By: Sheyla Cruz on 10-21-2024 Erythrocyte distribution width (RBC) [Entitic vol] 41.2 fL 35.1-43.9 [facility] Erythrocyte distribution width (RBC) [Ratio] 41.2 fl 35.1-43.9 [facility] GFR/1.73 sq M.predicted ml g non-blacks MDRD (S/P/Bld) [Vol rate/Area]Ordered By: Sheyla Cruz on 10-21-2024 Estimated GFR (MDRD) Non-Af Amer 87 >60 [facility] Comment on above: mL/min/1.73m2 CKD-EP I Creatinine Equation (2020) Glomerular filtration rate ( GFR) estimation/1.73 sq m using serum, plasma, or whole bOrdered By: Sheyla Cruz on 10-21-2024 GFR/1.73 sq M.predicted among non-blacks MDRD (S/P/Bld) [Vol rate/Area] 87 mL/min/{1.73_m2} >60 [facility] Comment on above: mL/min/1.73m2 CKD-EP I Creatinine Equation (2020) Hematocrit Auto (Bld) [Volum e fraction]Ordered By: Sheyla Cruz on 10-21-2024 Hematocrit (Bld) [Volume fraction] 39.9 % 37-47 [facility] Hemoglobin measurementOrdere d By: Sheyla Cruz on 10-21-2024 Hemoglobin (Bld) [Mass/Vol] 13.6 g/dL 12.0-15.0 [facility] Immature granulocytes/100 WB C Auto (Bld)Ordered By: Sheyla Cruz on 10-21-2024 Immature granulocytes/100 WBC (Bld) 0.200 % 0.0-0.9 [facility] Comment on above: IG% - Immature Granu locytes (promyelocytes, myelocytes and metamyelocytes) > 1% indicates that a LEFT SHIFT is Present. Laboratory - Chemistry and C hemistry - challengeOrdered By: Sheyla Cruz on 10-21-2024 AST [Catalytic activity/Vol] 19 U/L <32 [facility] Lymphocytes Auto (Unsp spec) [#/Vol]Ordered By: Sheyla Cruz on 10-21-2024 Lymphocytes (Bld) [#/Vol] 2.10 10*3/uL 0.83-4.51 [facility] Lymphocytes/100 WBC Auto (Un sp spec)Ordered By: Sheyla Cruz on 10-21-2024 Lymphocytes/100 WBC (Bld) 33.4 % 19-41 [facility] MCV (mean corpuscular volume ) determinationOrdered By: Sheyla Cruz on 10-21-2024 MCV (RBC) [Entitic vol] 88.9 fL 81-99 [facility] Mean corpuscular hemoglobin (MCH) determinationOrdered By: Sheyla Cruz on 10-21-2024 MCH (RBC) [Entitic mass] 30.3 pg 27.0-32.0 [facility] Mean corpuscular hemoglobin concentration (MCHC) determinationOrdered By: Sheyla Cruz on 10-21-2024 MCHC (RBC) [Mass/Vol] 34.1 g/dL 32-36 [facility] Mean platelet volume determi nationOrdered By: Sheyla Cruz on 10-21-2024 Platelet mean volume (Bld) [Entitic vol] 10.3 fL 6.2-12.0 [facility] Monocyte percentageOrdered B y: Sheyla Cruz on 10-21-2024 Monocytes/100 WBC (Bld) 8.3 % 0-10 [facility] Neutrophil percentageOrdered By: Sheyla Cruz on 10-21-2024 Neutrophils/100 WBC (Bld) 55.9 % 47-70 [facility] Nucleated red blood cell per centageOrdered By: Sheyla Cruz on 10-21-2024 Nucleated RBC/100 WBC (Bld) [Ratio] 0 % 0-5 [facility] Platelet countOrdered By: Eusebio Cruz on 10-21-2024 Platelets (Bld) [#/Vol] 342 10*3/uL 150-450 [facility] Potassium (Unsp spec) [Mass/ Vol]Ordered By: Sheyla Cruz on 10-21-2024 Potassium [Moles/Vol] 3.9 mmol/L 3.3-5.1 [facility] Potassium measurement (mass/ volume)Ordered By: Sheyla Cruz on 10-21-2024 Potassium (Unsp spec) [Mass/Vol] 3.9 mmol/L 3.3-5.1 [facility] RBC Auto (Bld) [#/Vol]Ordere d By: Sheyla Cruz on 10-21-2024 RBC (Bld) [#/Vol] 4.49 10*6/uL 4.2-5.4 [facility] Serum creatinine measurement (mass/volume)Ordered By: Sheyla Cruz on 10-21-2024 Creatinine [Mass/Vol] 0.80 mg/dL 0.70-1.20 [facility] Serum globulin measurementOr dered By: Sheyla Cruz on 10-21-2024 Globulin (S) [Mass/Vol] 2.8 g/dL 2.2-4.2 [facility] Serum glucose measurement (m ass/volume)Ordered By: Sheyla Cruz on 10-21-2024 Glucose [Mass/Vol] 90 mg/dL 70-99 [facility] Serum or plasma alanine berrios otransferase (ALT) measurementOrdered By: Sheyla Cruz on 10-21-2024 ALT [Catalytic activity/Vol] 24 U/L <35 [facility] Serum or plasma albumin allan urement (mass/volume)Ordered By: Sheyla Cruz on 10-21-2024 Albumin [Mass/Vol] 4.5 g/dL 3.5-5.0 [facility] Serum or plasma albumin/glob ulin mass ratioOrdered By: Sheyla Cruz on 10-21-2024 Albumin/Globulin [Mass ratio] 1.6 {ratio} 0.9-2.4 [facility] Serum or plasma alkaline jorge alberto sphatase measurementOrdered By: Sheyla Cruz on 10-21-2024 ALP [Catalytic activity/Vol] 68 U/L 35-104 [facility] Serum or plasma calcium allan urement (mass/volume)Ordered By: Sheyla Cruz on 10-21-2024 Calcium [Mass/Vol] 9.8 mg/dL 7.6-11.0 [facility] Serum or plasma urea nitroge n measurement (mass/volume)Ordered By: Sheyla Cruz on 10-21-2024 Urea nitrogen [Mass/Vol] 16 mg/dL - [facility] Sodium levelOrdered By: Madeleine Cruz on 10-21-2024 Sodium [Moles/Vol] 140 mmol/L 133-145 [facility] Total proteinOrdered By: Estee Cruz on 10-21-2024 Protein [Mass/Vol] 7.3 g/dL 5.9-8.4 [facility] White blood cell (WBC) count Ordered By: Sheyla Cruz on 10-21-2024 WBC (Bld) [#/Vol] 6.3 10*3/uL 4.4-11.0 [facility] MR/BMS.Brittni 09-09-2024 MR/BMS.MISHAS [facility] Vascular Surgery [address] [place] [address] OFFICE VISIT Date of Service: 09/09/24 MR#: [id number] Acct: [id number] Name: ERLINDA ZAPATA TOAN Rep #: [id number] : 1970 Provider: EUSEBIO Leblanc Age/Sex: 54/F Location: [facility] Status: Signed Intake Vital Signs [...] Q6H PRN PRN Mild-Mod 09/2209/09/24 Rx Pain (1-12/12) #30 tabs liothyronine 5 mcg tablet 5 [...] complaints, except (more content not included)... Normal [facility] Absolute neutrophil countOrd ered By: Sheyla Cruz on 07-31-2024 Neutrophils (Bld) [#/Vol] 3.0 10*3/uL 2.0-7.7 [facility] Albumin to globulin ratioOrd ered By: Sheyla Cruz on 07-31-2024 Albumin/Globulin [Mass ratio] 1.1 {ratio} 0.9-2.4 [facility] Basophil percentageOrdered B y: Sheyla Cruz on 07-31-2024 Basophils/100 WBC (Bld) 0.9 % 0-1 [facility] Bilirubin, totalOrdered By: Sheyla Crzu on 07-31-2024 Bilirubin [Mass/Vol] 0.30 mg/dL 0.20-1.00 [facility] Comment on above: For patients on eltr ombopag therapy, use of Dimension [place] TBIL is not recommended. Blood urea nitrogen (BUN)/cr eatinine ratioOrdered By: Sheyla Cruz on 07-31-2024 Urea nitrogen/Creatinine [Mass ratio] 19.7 mg/mg 10-20 [facility] CBC W/Diff, Automatedon 07-06 Absolute Lymph 1.89 X10 3/uL Normal 0.83-4.51 [facility] Comment on above: Performed By: #### L 100.0100, L500.4050 ####[facility] [address] [place], [address] Absolute Neut 3.0 X10 3/uL Normal 2.0-7.7 [facility] Comment on above: Performed By: #### L 100.0100, L500.4050 ####[facility] [address] [place], [address] Basophils/100 WBC (Bld) 0.9 % Normal 0-1 [facility] Comment on above: Performed By: #### L 100.0100, L500.4050 ####[facility] [address] [place], [address] Eosinophils/100 WBC (Bld) 2.7 % Normal 0-5 [facility] Comment on above: Performed By: #### L 100.0100, L500.4050 ####[facility] [address] [place], [address] Erythrocyte distribution width (RBC) [Ratio] 12.5 % Normal 11.6-14.6 [facility] Comment on above: Performed By: #### L 100.0100, L500.4050 ####[facility] [address] [place], [address] Hematocrit (Bld) [Volume fraction] 38.8 % Normal 37-47 [facility] Comment on above: Performed By: #### L 100.0100, L500.4050 ####[facility] [address] [place], [address] Hemoglobin (Bld) [Mass/Vol] 13.0 g/dL Normal 12.0-15.0 [facility] Comment on above: Performed By: #### L 100.0100, L500.4050 ####[facility] [address] [place], [address] IG% 0.200 Normal 0.0-0.9 [facility] Comment on above: Result Comment: IG% - Immature Granulocytes (promyelocytes, myelocytes and metamyelocytes) > 1% indicates that a LEFT SHIFT is Present. Performed By: #### L 100.0100, L500.4050 ####[facility] [address] [place], [address] Lymphocytes/100 WBC (Bld) 33.6 % Normal 19-41 [facility] Comment on above: Performed By: #### L 100.0100, L500.4050 ####[facility] [address] [place], [address] MCH (RBC) [Entitic mass] 30.4 pg Normal 27.0-32.0 [facility] Comment on above: Performed By: #### L 100.0100, L500.4050 ####[facility] [address] [place], [address] MCHC (RBC) [Mass/Vol] 33.5 g/dL Normal 32-36 [facility] Comment on above: Performed By: #### L 100.0100, L500.4050 ####[facility] [address] [place], [address] MCV (RBC) [Entitic vol] 90.7 fL Normal 81-99 [facility] Comment on above: Performed By: #### L 100.0100, L500.4050 ####[facility] [address] [place], [address] Monocytes/100 WBC (Bld) 8.7 % Normal 0-10 [facility] Comment on above: Performed By: #### L 100.0100, L500.4050 ####[facility] [address] [place], [address] Neutrophils/100 WBC (Bld) 53.9 % Normal 47-70 [facility] Comment on above: Performed By: #### L 100.0100, L500.4050 ####[facility] [address] [place], [address] Nucleated RBC (Bld) [#/Vol] 0 10*3/uL Normal 0-5 [facility] Comment on above: Performed By: #### L 100.0100, L500.4050 ####[facility] [address] [place], [address] Platelet mean volume (Bld) [Entitic vol] 10.5 fL Normal 6.2-12.0 [facility] Comment on above: Performed By: #### L 100.0100, L500.4050 ####[facility] [address] [place], [address] Platelets (Bld) [#/Vol] 335 10*3/uL Normal 150-450 [facility] Comment on above: Performed By: #### L 100.0100, L500.4050 ####[facility] [address] [place], [address] RBC (Bld) [#/Vol] 4.28 10*6/uL Normal 4.2-5.4 [facility] Comment on above: Performed By: #### L 100.0100, L500.4050 ####[facility] [address] [place], [address] RDW SD 40.9 fl Normal 35.1-43.9 [facility] Comment on above: Performed By: #### L 100.0100, L500.4050 ####[facility] [address] [place], [address] WBC (Bld) [#/Vol] 5.6 10*3/uL Normal 4.4-11.0 [facility] Comment on above: Performed By: #### L 100.0100, L500.4050 ####[facility] [address] [place], [address] Carbon dioxide measurementOr dered By: Sheyla Cruz on 07-31-2024 CO2 [Moles/Vol] 29.0 mmol/L 21.0-32.0 [facility] Chloride measurementOrdered By: Sheyla Cruz on 07-31-2024 Chloride [Moles/Vol] 106 mmol/L 98-107 [facility] Comprehensive Metabolic Prof ilon 07-31-2024 Albumin [Mass/Vol] 3.8 g/dL Normal 3.2-5.0 [facility] Comment on above: Performed By: #### L 100.0100, L500.4050 ####[facility] [address] [place], [address] Albumin/Globulin [Mass ratio] 1.1 {ratio} Normal 0.9-2.4 [facility] Comment on above: Performed By: #### L 100.0100, L500.4050 ####[facility] [address] [place], [address] ALK P 69 U/L Normal 45-117 [facility] Comment on above: Performed By: #### L 100.0100, L500.4050 ####[facility] [address] [place], [address] ALT [Catalytic activity/Vol] 31 U/L Normal 13-56 [facility] Comment on above: Performed By: #### L 100.0100, L500.4050 ####[facility] [address] [place], [address] AST [Catalytic activity/Vol] 15 U/L Normal 15-37 [facility] Comment on above: Performed By: #### L 100.0100, L500.4050 ####[facility] [address] [place], [address] Bilirubin [Mass/Vol] 0.30 mg/dL Normal 0.20-1.00 [facility] Comment on above: Result Comment: For patients on eltrombopag therapy, use of Dimension [place] TBIL is not recommended. Performed By: #### L 100.0100, L500.4050 ####[facility] [address] [place], [address] BUN/CRE 19.7 RATIO Normal 10-20 [facility] Comment on above: Performed By: #### L 100.0100, L500.4050 ####[facility] [address] [place], [address] CA,Total 9.4 mg/dL Normal 8.5-10.1 [facility] Comment on above: Performed By: #### L 100.0100, L500.4050 ####[facility] [address] [place], [address] Chloride [Moles/Vol] 106 mmol/L Normal 98-107 [facility] Comment on above: Performed By: #### L 100.0100, L500.4050 ####[facility] [address] [place], [address] CO2 [Moles/Vol] 29.0 mmol/L Normal 21.0-32.0 [facility] Comment on above: Performed By: #### L 100.0100, L500.4050 ####[facility] [address] [place], [address] Creatinine [Mass/Vol] 0.76 mg/dL Normal 0.55-1.02 [facility] Comment on above: Result Comment: The validity of the calculated GFR GFRAA in patients over 70 years has not been determined. Clinical correlation is essential. Performed By: #### L 100.0100, L500.4050 ####[facility] [address] [place], [address] EST GFR - AA 102 mL/min Normal >60 [facility] Comment on above: Result Comment: Afri can [place] Islander GFR Calc Performed By: #### L 100.0100, L500.4050 ####[facility] [address] [place], [address] GAP 3 Low 5-15 [facility] Comment on above: Performed By: #### L 100.0100, L500.4050 ####[facility] [address] [place], [address] GFR/1.73 sq M.predicted among non-blacks MDRD (S/P/Bld) [Vol rate/Area] 84 mL/min/{1.73_m2} Normal >60 [facility] Comment on above: Result Comment: Non- GFR Calc Performed By: #### L 100.0100, L500.4050 ####[facility] [address] [place], [address] Globulin (S) [Mass/Vol] 3.4 g/dL Normal 2.2-4.2 [facility] Comment on above: Performed By: #### L 100.0100, L500.4050 ####[facility] [address] [place], [address] Glucose [Mass/Vol] 100 mg/dL Normal 74-106 [facility] Comment on above: Result Comment: Fast ing Glucose result from 100 to 125 mg/dL suggests IMPAIRED HOMEOSTASIS per A.D.A. criteria. Performed By: #### L 100.0100, L500.4050 ####[facility] [address] [place], [address] Potassium [Moles/Vol] 3.9 mmol/L Normal 3.5-5.1 [facility] Comment on above: Performed By: #### L 100.0100, L500.4050 ####[facility] [address] [place], [address] Sodium [Moles/Vol] 138 mmol/L Normal 136-145 [facility] Comment on above: Performed By: #### L 100.0100, L500.4050 ####[facility] [address] [place], [address] T PROT 7.2 g/dL Normal 6.4-8.2 [facility] Comment on above: Performed By: #### L 100.0100, L500.4050 ####[facility] [address] [place], [address] Urea nitrogen [Mass/Vol] 15 mg/dL Normal 7-18 [facility] Comment on above: Performed By: #### L 100.0100, L500.4050 ####[facility] [address] [place], [address] Eosinophil percentageOrdered By: Sheyla Cruz on 07-31-2024 Eosinophils/100 WBC (Bld) 2.7 % 0-5 [facility] Erythrocyte distribution wid th ratioOrdered By: Sheyla Cruz on 07-31-2024 Erythrocyte distribution width (RBC) [Ratio] 12.5 % 11.6-14.6 [facility] Erythrocyte distribution wid th standard deviationOrdered By: Sheyla Cruz on 07-31-2024 Erythrocyte distribution width (RBC) [Entitic vol] 40.9 fL 35.1-43.9 [facility] Estimated glomerular filtrat ion rate (GFR) AmericanOrdered By: Sheyla Cruz on 07-31-2024 Estimated GFR (MDRD) Amer 102 mL/min >60 [facility] Comment on above: GFR Calc Glomerular filtration rate ( GFR) estimationOrdered By: Sheyla Cruz on 07-31-2024 Estimated GFR (MDRD) Non-Af Amer 84 mL/min >60 [facility] Comment on above: Non- GFR Calc Glucose measurementOrdered B y: Sheyla Cruz on 07-31-2024 Glucose [Mass/Vol] 100 mg/dL 74-106 [facility] Comment on above: Fasting Glucose resu lt from 100 to 125 mg/dL suggests IMPAIRED HOMEOSTASIS per A.D.A. criteria. Hematocrit Auto (Bld) [Volum e fraction]Ordered By: Sheyla Cruz on 07-31-2024 Hematocrit (Bld) [Volume fraction] 38.8 % 37-47 [facility] Hemoglobin measurementOrdere d By: Sheyla Cruz on 07-31-2024 Hemoglobin (Bld) [Mass/Vol] 13.0 g/dL 12.0-15.0 [facility] Immature granulocytes/100 WB C Auto (Bld)Ordered By: Sheyla Cruz on 07-31-2024 Immature granulocytes/100 WBC (Bld) 0.200 % 0.0-0.9 [facility] Comment on above: IG% - Immature Granu locytes (promyelocytes, myelocytes and metamyelocytes) > 1% indicates that a LEFT SHIFT is Present. Laboratory - Chemistry and C hemistry - challengeOrdered By: Sheyla Cruz on 07-31-2024 AST [Catalytic activity/Vol] 15 U/L 15-37 [facility] Lymphocytes Auto (Unsp spec) [#/Vol]Ordered By: Sheyla Cruz on 07-31-2024 Lymphocytes (Bld) [#/Vol] 1.89 10*3/uL 0.83-4.51 [facility] Lymphocytes/100 WBC Auto (Un sp spec)Ordered By: Sheyla Cruz on 07-31-2024 Lymphocytes/100 WBC (Bld) 33.6 % 19-41 [facility] MCV (mean corpuscular volume ) determinationOrdered By: Sheyla Cruz on 07-31-2024 MCV (RBC) [Entitic vol] 90.7 fL 81-99 [facility] Mean corpuscular hemoglobin (MCH) determinationOrdered By: Sheyla Cruz on 07-31-2024 MCH (RBC) [Entitic mass] 30.4 pg 27.0-32.0 [facility] Mean corpuscular hemoglobin concentration (MCHC) determinationOrdered By: Sheyla Cruz on 07-31-2024 MCHC (RBC) [Mass/Vol] 33.5 g/dL 32-36 [facility] Mean platelet volume determi nationOrdered By: Sheyla Cruz on 07-31-2024 Platelet mean volume (Bld) [Entitic vol] 10.5 fL 6.2-12.0 [facility] Monocyte percentageOrdered B y: Sheyla Cruz on 07-31-2024 Monocytes/100 WBC (Bld) 8.7 % 0-10 [facility] Neutrophil percentageOrdered By: Sheyla Cruz on 07-31-2024 Neutrophils/100 WBC (Bld) 53.9 % 47-70 [facility] Nucleated red blood cell per centageOrdered By: Sheyla Cruz on 07-31-2024 Nucleated RBC/100 WBC (Bld) [Ratio] 0 % 0-5 [facility] Platelet countOrdered By: Eusebio Cruz on 07-31-2024 Platelets (Bld) [#/Vol] 335 10*3/uL 150-450 [facility] Potassium measurementOrdered By: Sheyla Cruz on 07-31-2024 Potassium [Moles/Vol] 3.9 mmol/L 3.5-5.1 [facility] RBC Auto (Bld) [#/Vol]Ordere d By: Sheyla Cruz on 07-31-2024 RBC (Bld) [#/Vol] 4.28 10*6/uL 4.2-5.4 [facility] Serum anion gap measurementO rdered By: Sheyla Cruz on 07-31-2024 Anion gap [Moles/Vol] 3 mmol/L Low 5-15 [facility] Serum globulin measurementOr dered By: Sheyla Cruz on 07-31-2024 Globulin (S) [Mass/Vol] 3.4 g/dL 2.2-4.2 [facility] Serum or plasma alanine berrios otransferase (ALT) measurementOrdered By: Sheyla Cruz on 07-31-2024 ALT [Catalytic activity/Vol] 31 U/L 13-56 [facility] Serum or plasma albumin allan urement (mass/volume)Ordered By: Sheyla Cruz on 07-31-2024 Albumin [Mass/Vol] 3.8 g/dL 3.2-5.0 [facility] Serum or plasma alkaline jorge alberto sphatase measurementOrdered By: Sheyla Cruz on 07-31-2024 ALP [Catalytic activity/Vol] 69 U/L 45-117 [facility] Serum or plasma calcium allan urement (mass/volume)Ordered By: Sheyla Cruz on 07-31-2024 Calcium [Mass/Vol] 9.4 mg/dL 8.5-10.1 [facility] Serum or plasma creatinine m easurement (mass/volume)Ordered By: Sheyla Cruz on 07-31-2024 Creatinine [Mass/Vol] 0.76 mg/dL 0.55-1.02 [facility] Comment on above: The validity of the calculated GFR & GFRAA in patients over 70 years has not been determined. Clinical correlation is essential. Serum or plasma urea nitroge n measurement (mass/volume)Ordered By: Sheyla Cruz on 07-31-2024 Urea nitrogen [Mass/Vol] 15 mg/dL 7-18 [facility] Sodium levelOrdered By: Madeleine Cruz on 07-31-2024 Sodium [Moles/Vol] 138 mmol/L 136-145 [facility] Total proteinOrdered By: Estee Cruz on 07-31-2024 Protein [Mass/Vol] 7.2 g/dL 6.4-8.2 [facility] White blood cell (WBC) count Ordered By: Sheyla Cruz on 07-31-2024 WBC (Bld) [#/Vol] 5.6 10*3/uL 4.4-11.0 [facility] CNOVon 06-16-2024 CNOV Office Visit (UCWSTR ) ERLINDA ZAPATA ([id number]) 1970 F Date Time Provider Department 06/16/24 3:30 PM [facility] During your visit today, we recorded the following information about you: Temperature Pulse Respiration Blood pressure 97.6 degrees 84/minute 18/minute 131/86 Weight 95.3 kg Dago Mays, MICHELLE 06/16/2024 4:35 PM Signed This note was created using [employer]. Subjective Erlinda Zapata is a 54 year [...] - strep test negative Dago Mays PA-C Allergies As of Date: 06/16/2024 Noted Allergy Reaction OXYCODONE 12/04/2017 8 - GI Upset ROCEPHIN (CEFTRIAXONE SODIUM) 01/03/2006 4 - Hives Date Reviewed: 06/16/2024 Reviewed by: Jolie Espinoza MA - Fully Assessed Reason for Visit: Sore Throat [200] Cmt: Cough, hoarse voice x2 days Primary Visit Diagnosis:Viral URI with cough [J06.9] Order(s):STREP A MOLECULAR (POC) [0154322] Order #: [id number]. #[id number] Prescri (more content not included)... Normal [facility] STREP A MOLECULAR (POC)on Procedural Control Valid [facility] Strep A (POCT) Negative Negative [facility] LABORATORYOrdered By: SYSTEM SYSTEM on 04-18-2024 25-hydroxyvitamin [...] risk 500 or higher Very high risk Absolute lymphocyte countOrd ered By: Sheyla Cruz on 11-14-2023 Lymphocytes Auto (Unsp spec) [#/Vol] 1.83 10*3/uL 0.83-4.51 [facility] Automated lymphocyte count a s percentage of total leukocytesOrdered By: Sheyla Cruz on 11-14-2023 Lymphocytes/100 WBC Auto (Unsp spec) 34.6 % 19-41 [facility] Basophil percentageOrdered B y: Sheyla Cruz on 11-14-2023 Basophils/100 WBC (Bld) 0.8 % 0-1 [facility] Bilirubin [Mass/Vol] 0.30 mg/dL 0.20-1.00 [facility] Comment on above: For patients on eltr ombopag therapy, use of Dimension [place] TBIL is not recommended. Chloride [Moles/Vol] 109 mmol/L 98-107 [facility] Eosinophils/100 WBC (Bld) 2.8 % 0-5 [facility] Glucose [Mass/Vol] 95 mg/dL 74-106 [facility] Hemoglobin (Bld) [Mass/Vol] 12.8 g/dL 12.0-15.0 [facility] Monocytes/100 WBC (Bld) 9.3 % 0-10 [facility] Neutrophils (Bld) [#/Vol] 2.8 10*3/uL 2.0-7.7 [facility] Neutrophils/100 WBC (Bld) 52.1 % 47-70 [facility] Potassium [Moles/Vol] 3.9 mmol/L 3.5-5.1 [facility] Protein [Mass/Vol] 7.0 g/dL 6.4-8.2 [facility] Sodium [Moles/Vol] 139 mmol/L 136-145 [facility] WBC (Bld) [#/Vol] 5.3 10*3/uL 4.4-11.0 [facility] Determination of erythrocyte mean corpuscular volume (MCV)Ordered By: Sheyla Cruz on 11-14-2023 MCV (RBC) [Entitic vol] 91.0 fL 81-99 [facility] Erythrocyte distribution wid th ratioOrdered By: Sheyla Cruz on 11-14-2023 Erythrocyte distribution width (RBC) [Ratio] 13.2 % 11.6-14.6 [facility] Erythrocyte distribution wid th standard deviationOrdered By: Sheyla Cruz on 11-14-2023 Erythrocyte distribution width (RBC) [Entitic vol] 44.1 fL 35.1-43.9 [facility] Hematocrit Auto (Bld) [Volum e fraction]Ordered By: Sheyla Cruz on 11-14-2023 Hematocrit (Bld) [Volume fraction] 38.5 % 37-47 [facility] Immature granulocytes/100 WB C Auto (Bld)Ordered By: Sheylagalina Cruz on 11-14-2023 Immature granulocytes/100 WBC (Bld) 0.400 % 0.0-0.9 [facility] Comment on above: IG% - Immature Granu locytes (promyelocytes, myelocytes and metamyelocytes) > 1% indicates that a LEFT SHIFT is Present. Laboratory - Chemistry and C hemistry - challengeOrdered By: Sheylagalina Cruz on 11-14-2023 Albumin/Globulin [Mass ratio] 1.1 {ratio} 0.9-2.4 [facility] ALP [Catalytic activity/Vol] 75 U/L 45-117 [facility] ALT [Catalytic activity/Vol] 30 U/L 13-56 [facility] CO2 [Moles/Vol] 28.0 mmol/L 21.0-32.0 [facility] Globulin (S) [Mass/Vol] 3.3 g/dL 2.2-4.2 [facility] Urea nitrogen/Creatinine [Mass ratio] 16.1 mg/mg 10-20 [facility] Laboratory - Hematology and Cell countsOrdered By: Sheylagalina Cruz on 11-14-2023 MCH (RBC) [Entitic mass] 30.3 pg 27.0-32.0 [facility] MCHC (RBC) [Mass/Vol] 33.2 g/dL 32-36 [facility] [facility] Nucle[facility] RBC/100 WBC (Bld) [Ratio] 0 % 0-5 [facility] Platelet mean volume (Bld) [Entitic vol] 10.6 fL 6.2-12.0 [facility] Platelets (Bld) [#/Vol] 298 10*3/uL 150-450 [facility] No Panel InformationOrdered By: Sheyla Cruz on 11-14-2023 Estimated GFR (MDRD) Amer 81 mL/min >60 [facility] Comment on above: GFR Calc Estimated GFR (MDRD) Non-Af Amer 67 mL/min >60 [facility] Comment on above: Non- GFR Calc RBC Auto (Bld) [#/Vol]Ordere d By: Sheyla Cruz on 11-14-2023 RBC (Bld) [#/Vol] 4.23 10*6/uL 4.2-5.4 [facility] Serum or plasma calcium allan urement (mass/volume)Ordered By: Sheyla Cruz on 11-14-2023 Calcium [Mass/Vol] 9.1 mg/dL 8.5-10.1 [facility] Serum or plasma creatinine m easurement (mass/volume)Ordered By: Sheyla Cruz on 11-14-2023 Creatinine [Mass/Vol] 0.93 mg/dL 0.55-1.02 [facility] Comment on above: The validity of the calculated GFR & GFRAA in patients over 70 years has not been determined. Clinical correlation is essential. Serum or plasma urea nitroge n measurement (mass/volume)Ordered By: Sheyla Cruz on 11-14-2023 Urea nitrogen [Mass/Vol] 15 mg/dL 7-18 [facility] Thin prep Papanicolaou smear with manual screeningOrdered By: Sheyla Cruz on 11-14-2023 Thin prep Papanicolaou smear with manual screening 3.7 g/dL 3.2-5.0 [facility] Thin prep Papanicolaou smear with manual screening 18 U/L 15-37 [facility] Thin prep Papanicolaou smear with manual screening 2 5-15 [facility] FT3on 10-24-2023 Free T3 [Mass/Vol] 2.29 pg/mL Low 2.30-4.00 [facility] ([place]) Comment on above: Performed By: #### C MP, FT4, FT3, TSH, VIDH, GFR #### Sandi [address] [address] FT4on 10-24-2023 Free T4 [Mass/Vol] 1.02 ng/dL Normal 0.76-1.46 [facility] ([place]) Comment on above: Performed By: #### C MP, FT4, FT3, TSH, VIDH, GFR #### [id number] [place], [place] [address] TSHon 10-24-2023 TSH Qn 0.20 m[IU]/L Low 0.36-3.74 [facility] ([place]) Comment on above: Performed By: #### C MP, FT4, FT3, TSH, VIDH, GFR #### [address] [place], [place] [address] CNPNon 10-21-2023 CNPN Telephone (NIQ) ERLINDA ATKINS ([id number]) 1970 F Date Time Provider Department 10/21/23 INDIRA LAGOS NIQ During your visit today, we recorded the following information about you: Monica Patel 10/21/2023 4:50 PM Signed Emily the advocate at [facility] for Erlinda is calling. She is asking the TALENT ACQUISITION PROJECT MANAGER to Please call Erlinda after 3:30 with the results. Indira Lagos, [employer].LUMBER STICKER 10/22/2023 4:23 PM Signed XR with no spondylolisthesis, no instability. MRI images were previously reviewed with no neural compression. No role for surgery Recommend [facility]. Order placed. Call to pt. She has ongoing pain sx. Reviewed above. She will consider scheduled with [facility] in the [...] Status:Closed by INDIRA LAGOS on 10/22/[address] [facility] Absolute lymphocyte countOrd ered By: Osei Lugo on 10-18-2023 Lymphocytes Auto (Unsp spec) [#/Vol] 0.51 10*3/uL 0.83-4.51 [facility] Automated lymphocyte count a s percentage of total leukocytesOrdered By: Osei Lugo on 10-18-2023 Lymphocytes/100 WBC Auto (Unsp spec) 6.6 % 19-41 [facility] Basophil percentageOrdered B y: Osei Lugo on 10-18-2023 Basophil percentage 0-5 SEEN /hpf 0-5 [facility] Basophils/100 WBC (Bld) 0.4 % 0-1 [facility] Eosinophils/100 WBC (Bld) 1.2 % 0-5 [facility] Hemoglobin (Bld) [Mass/Vol] 13.4 g/dL 12.0-15.0 [facility] Monocytes/100 WBC (Bld) 7.1 % 0-10 [facility] Neutrophils (Bld) [#/Vol] 6.5 10*3/uL 2.0-7.7 [facility] Neutrophils/100 WBC (Bld) 83.8 % 47-70 [facility] WBC (Bld) [#/Vol] 7.8 10*3/uL 4.4-11.0 [facility] Bilirubin [Mass/Vol] 0.60 mg/dL 0.20-1.00 [facility] Comment on above: For patients on eltr ombopag therapy, use of Dimension [place] TBIL is not recommended. Chloride [Moles/Vol] 106 mmol/L 98-107 [facility] Glucose [Mass/Vol] 100 mg/dL 74-106 [facility] Comment on above: Fasting Glucose resu lt from 100 to 125 mg/dL suggests IMPAIRED HOMEOSTASIS per A.D.A. criteria. Potassium [Moles/Vol] 3.8 mmol/L 3.5-5.1 [facility] Protein [Mass/Vol] 7.1 g/dL 6.4-8.2 [facility] Sodium [Moles/Vol] 137 mmol/L 136-145 [facility] Bilirubin Test strip Ql (U)O rdered By: Osei Lugo on 10-18-2023 Bilirubin Ql (U) Negative Negative [facility] Determination of erythrocyte mean corpuscular volume (MCV)Ordered By: Osei Lugo on 10-18-2023 MCV (RBC) [Entitic vol] 89.1 fL 81-99 [facility] Erythrocyte distribution wid th ratioOrdered By: Osei Lugo on 10-18-2023 Erythrocyte distribution width (RBC) [Ratio] 12.6 % 11.6-14.6 [facility] Erythrocyte distribution wid th standard deviationOrdered By: Osei Lugo on 10-18-2023 Erythrocyte distribution width (RBC) [Entitic vol] 40.4 fL 35.1-43.9 [facility] Hematocrit Auto (Bld) [Volum e fraction]Ordered By: Osei Lugo on 10-18-2023 Hematocrit (Bld) [Volume fraction] 40.1 % 37-47 [facility] Immature granulocytes/100 WB C Auto (Bld)Ordered By: Osei Lugo on 10-18-2023 Immature granulocytes/100 WBC (Bld) 0.900 % 0.0-0.9 [facility] Comment on above: IG% - Immature Granu locytes (promyelocytes, myelocytes and metamyelocytes) > 1% indicates that a LEFT SHIFT is Present. Ketones Test strip Ql (U)Ord ered By: Osei Lugo on 10-18-2023 Ketones Ql (U) Negative Negative [facility] Laboratory - Chemistry and C hemistry - challengeOrdered By: Osei Lugo on 10-18-2023 Albumin/Globulin [Mass ratio] 1.0 {ratio} 0.9-2.4 [facility] ALP [Catalytic activity/Vol] 59 U/L 45-117 [facility] ALT [Catalytic activity/Vol] 25 U/L 13-56 [facility] CO2 [Moles/Vol] 24.0 mmol/L 21.0-32.0 [facility] Globulin (S) [Mass/Vol] 3.5 g/dL 2.2-4.2 [facility] Urea nitrogen/Creatinine [Mass ratio] 17.3 mg/mg 10-20 [facility] Laboratory - Hematology and Cell countsOrdered By: Osei Lugo on 10-18-2023 MCH (RBC) [Entitic mass] 29.8 pg 27.0-32.0 [facility] MCHC (RBC) [Mass/Vol] 33.4 g/dL 32-36 [facility] Nucleated RBC/100 WBC (Bld) [Ratio] 0 % 0-5 [facility] Platelet mean volume (Bld) [Entitic vol] 10.2 fL 6.2-12.0 [facility] Platelets (Bld) [#/Vol] 282 10*3/uL 150-450 [facility] Mucus LM Ql (Urine sed)Order ed By: Osei Lugo on 10-18-2023 Mucus Ql (Urine sed) 1+ /hpf [facility] Nitrite Test strip Ql (U)Ord ered By: Osei Lugo on 10-18-2023 Nitrite Ql (U) Negative Negative [facility] No Panel InformationOrdered By: Osei Lugo on 10-18-2023 Urine RBC 0-5 SEEN /hpf 0-5 [facility] Estimated Creatinine Clearance Calc 104.24 ml/min [facility] Estimated GFR (MDRD) Amer 103 mL/min >60 [facility] Comment on above: GFR Calc Estimated GFR (MDRD) Non-Af Amer 85 mL/min >60 [facility] Comment on above: Non- GFR Calc Protein Test strip Ql (U)Ord ered By: Osei Lugo on 10-18-2023 Protein Ql (U) Negative Negative [facility] RBC Auto (Bld) [#/Vol]Ordere d By: Osei Lugo on 10-18-2023 RBC (Bld) [#/Vol] 4.50 10*6/uL 4.2-5.4 [facility] Serum or plasma calcium allan urement (mass/volume)Ordered By: Osei Lugo on 10-18-2023 Calcium [Mass/Vol] 9.4 mg/dL 8.5-10.1 [facility] Serum or plasma creatinine m easurement (mass/volume)Ordered By: Osei Lugo on 10-18-2023 Creatinine [Mass/Vol] 0.75 mg/dL 0.55-1.02 [facility] Comment on above: The validity of the calculated GFR & GFRAA in patients over 70 years has not been determined. Clinical correlation is essential. Serum or plasma urea nitroge n measurement (mass/volume)Ordered By: Osei Lugo on 10-18-2023 Urea nitrogen [Mass/Vol] 13 mg/dL 7-18 [facility] Squamous epithelial cells de tection in urine sediment by light microscopyOrdered By: Osei Lugo on 10-18-2023 Epithelial cells.squamous LM Ql (Urine sed) 5-10 SEEN /hpf 5-10 [facility] Thin prep Papanicolaou smear with manual screeningOrdered By: Osei Lugo on 10-18-2023 Thin prep Papanicolaou smear with manual screening 3.6 g/dL 3.2-5.0 [facility] Thin prep Papanicolaou smear with manual screening 19 U/L 15-37 [facility] Thin prep Papanicolaou smear with manual screening 7 -15 [facility] Urine blood detectionOrdered By: Osei Lugo on 10-18-2023 RBC Ql (U) Negative Negative [facility] Urine clarityOrdered By: Robbie Lugo on 10-18-2023 Clarity (U) Sl. Cloudy Clear [facility] Urine color determinationOrd ered By: Osei Lugo on 10-18-2023 Color (U) Yellow Yellow [facility] Urine glucose detectionOrder ed By: Osei Lugo on 10-18-2023 Glucose Ql (U) Normal mg/dl Normal [facility] Urine leukocyte esterase det ection by dipstickOrdered By: Osei Lugo on 10-18-2023 Leukocyte esterase Test strip Ql (U) 25 /ul Negative [facility] Urine pHOrdered By: Osei thomas on 10-18-2023 pH (U) 8.0 [pH] 5.0 - 8.0 [facility] Urine sediment bacteria coun t by microscopy (number/high power field)Ordered By: Osei Lugo on 10-18-2023 Bacteria LM.HPF (Urine sed) [#/Area] RARE /hpf None Seen [facility] Urine specific gravity measu rementOrdered By: Osei Lugo on 10-18-2023 Specific gravity (U) [Rel density] 1.015 1.002-1.030 [facility] Urine urobilinogen measureme ntOrdered By: Osei Lugo on 10-18-2023 Urobilinogen Ql (U) Normal mg/dl Normal [facility] Absolute lymphocyte countOrd ered By: Noel Roberts on 10-15-2023 Lymphocytes Auto (Unsp spec) [#/Vol] 1.90 10*3/uL 0.83-4.51 [facility] Automated lymphocyte count a s percentage of total leukocytesOrdered By: Noel Roberts on 10-15-2023 Lymphocytes/100 WBC Auto (Unsp spec) 27.0 % 19-41 [facility] Basophil percentageOrdered B y: Noel Roberts on 10-15-2023 Basophils/100 WBC (Bld) 1.0 % 0-1 [facility] Eosinophils/100 WBC (Bld) 5.0 % 0-5 [facility] Hemoglobin (Bld) [Mass/Vol] 12.4 g/dL 12.0-15.0 [facility] Monocytes/100 WBC (Bld) 8.5 % 0-10 [facility] Neutrophils (Bld) [#/Vol] 4.1 10*3/uL 2.0-7.7 [facility] Neutrophils/100 WBC (Bld) 58.1 % 47-70 [facility] WBC (Bld) [#/Vol] 7.1 10*3/uL 4.4-11.0 [facility] Determination of erythrocyte mean corpuscular volume (MCV)Ordered By: Noel Roberts on 10-15-2023 MCV (RBC) [Entitic vol] 89.8 fL 81-99 [facility] Erythrocyte distribution wid th ratioOrdered By: Noel Roberts on 10-15-2023 Erythrocyte distribution width (RBC) [Ratio] 12.5 % 11.6-14.6 [facility] Erythrocyte distribution wid th standard deviationOrdered By: Noel Roberts on 10-15-2023 Erythrocyte distribution width (RBC) [Entitic vol] 40.8 fL 35.1-43.9 [facility] Hematocrit Auto (Bld) [Volum e fraction]Ordered By: Noel Roberts on 10-15-2023 Hematocrit (Bld) [Volume fraction] 37.7 % 37-47 [facility] Immature granulocytes/100 WB C Auto (Bld)Ordered By: Noel Roberts on 10-15-2023 Immature granulocytes/100 WBC (Bld) 0.400 % 0.0-0.9 [facility] Comment on above: IG% - Immature Granu locytes (promyelocytes, myelocytes and metamyelocytes) > 1% indicates that a LEFT SHIFT is Present. Laboratory - Hematology and Cell countsOrdered By: Noel Roberts on 10-15-2023 MCH (RBC) [Entitic mass] 29.5 pg 27.0-32.0 [facility] MCHC (RBC) [Mass/Vol] 32.9 g/dL 32-36 [facility] Nucleated RBC/100 WBC (Bld) [Ratio] 0 % 0-5 [facility] Platelet mean volume (Bld) [Entitic vol] 10.3 fL 6.2-12.0 [facility] Platelets (Bld) [#/Vol] 320 10*3/uL 150-450 [facility] RBC Auto (Bld) [#/Vol]Ordere d By: Noel Roberts on 10-15-2023 RBC (Bld) [#/Vol] 4.20 10*6/uL 4.2-5.4 [facility] XR LUMBAR 4V AP/LAT/ FLEX/EX Ton 10-02-2023 [...] abnormality or fracture. IMPRESSION: DEGENERATIVE CHANGES DESCRIBED Physical Medicine Physician: JULIO CÉSAR Transcribe Date/Time: Oct 02 2023 1:46P Dictated by : KYLEE FINCH MD This examination was interpreted and the report reviewed and electronically signed by: KYLEE FINCH MD on Oct 02 2023 1:48PM EST [id number] Normal [facility] XR Lumbar spine Views W flex ion and W extensionon 10-02-2023 [facility] CNOVon 10-01-2023 CNOV Office Visit (SPNSMN ) ERLINDA ATKINS ([id number]) 1970 F Date Time Provider Department 10/01/23 1:40 PM INDIRA LAGOS SPNSMN During your visit today, we recorded the following information about you: Pulse Blood pressure Weight Height 77/minute 139/80 94.7 kg 1.74 m Indira Lagos APRN.LUMBER STICKER 10/01/2023 2:39 PM Signed SPINE SURGERY NEW [...] fibromyalgia Hx RA Employment status: works at [employer] PREVIOUS CONSERVATIVE TREATMENTS: Physical therapy: Fall 2022 [...] on M (more content not included)... Normal [facility] Absolute lymphocyte countOrd ered By: Sheyla Cruz on 08-22-2023 Lymphocytes Auto (Unsp spec) [#/Vol] 2.07 10*3/uL 0.83-4.51 [facility] Automated lymphocyte count a s percentage of total leukocytesOrdered By: Sheyla Cruz on 08-22-2023 Lymphocytes/100 WBC Auto (Unsp spec) 36.8 % 19-41 [facility] Basophil percentageOrdered B y: Sheyla Cruz on 08-22-2023 Basophils/100 WBC (Bld) 0.9 % 0-1 [facility] Bilirubin [Mass/Vol] 0.60 mg/dL 0.20-1.00 [facility] Comment on above: For patients on eltr ombopag therapy, use of Dimension [place] TBIL is not recommended. Chloride [Moles/Vol] 108 mmol/L 98-107 [facility] Eosinophils/100 WBC (Bld) 3.7 % 0-5 [facility] Glucose [Mass/Vol] 96 mg/dL 74-106 [facility] Hemoglobin (Bld) [Mass/Vol] 13.3 g/dL 12.0-15.0 [facility] Monocytes/100 WBC (Bld) 9.6 % 0-10 [facility] Neutrophils (Bld) [#/Vol] 2.8 10*3/uL 2.0-7.7 [facility] Neutrophils/100 WBC (Bld) 48.8 % 47-70 [facility] Potassium [Moles/Vol] 3.8 mmol/L 3.5-5.1 [facility] Protein [Mass/Vol] 7.2 g/dL 6.4-8.2 [facility] Sodium [Moles/Vol] 141 mmol/L 136-145 [facility] WBC (Bld) [#/Vol] 5.6 10*3/uL 4.4-11.0 [facility] Determination of erythrocyte mean corpuscular volume (MCV)Ordered By: Sheyla Cruz on 08-22-2023 MCV (RBC) [Entitic vol] 89.9 fL 81-99 [facility] Erythrocyte distribution wid th ratioOrdered By: Sheyla Cruz on 08-22-2023 Erythrocyte distribution width (RBC) [Ratio] 13.3 % 11.6-14.6 [facility] Erythrocyte distribution wid th standard deviationOrdered By: Sheyla Cruz on 08-22-2023 Erythrocyte distribution width (RBC) [Entitic vol] 43.6 fL 35.1-43.9 [facility] Hematocrit Auto (Bld) [Volum e fraction]Ordered By: Sheyla Cruz on 08-22-2023 Hematocrit (Bld) [Volume fraction] 40.0 % 37-47 [facility] Immature granulocytes/100 WB C Auto (Bld)Ordered By: Sheyla Cruz on 08-22-2023 Immature granulocytes/100 WBC (Bld) 0.200 % 0.0-0.9 [facility] Comment on above: IG% - Immature Granu locytes (promyelocytes, myelocytes and metamyelocytes) > 1% indicates that a LEFT SHIFT is Present. Laboratory - Chemistry and C hemistry - challengeOrdered By: Sheyla Cruz on 08-22-2023 Albumin/Globulin [Mass ratio] 1.1 {ratio} 0.9-2.4 [facility] ALP [Catalytic activity/Vol] 58 U/L 45-117 [facility] ALT [Catalytic activity/Vol] 39 U/L 13-56 [facility] CO2 [Moles/Vol] 28.0 mmol/L 21.0-32.0 [facility] Globulin (S) [Mass/Vol] 3.4 g/dL 2.2-4.2 [facility] Urea nitrogen/Creatinine [Mass ratio] 27.1 mg/mg 10-20 [facility] Laboratory - Hematology and Cell countsOrdered By: Sheyla Cruz on 08-22-2023 MCH (RBC) [Entitic mass] 29.9 pg 27.0-32.0 [facility] MCHC (RBC) [Mass/Vol] 33.3 g/dL 32-36 [facility] Nucleated RBC/100 WBC (Bld) [Ratio] 0 % 0-5 [facility] Platelets (Bld) [#/Vol] 347 10*3/uL 150-450 [facility] No Panel InformationOrdered By: Sheyla Cruz on 08-22-2023 Estimated GFR (MDRD) Amer 106 mL/min >60 [facility] Comment on above: GFR Calc Estimated GFR (MDRD) Non-Af Amer 87 mL/min >60 [facility] Comment on above: Non- GFR Calc Platelet mean volume Alberto-Ec ker (Bld) [Entitic vol]Ordered By: Sheyla Cruz on 08-22-2023 Platelet mean volume (Bld) [Entitic vol] 10.4 fL 6.2-12.0 [facility] RBC Auto (Bld) [#/Vol]Ordere d By: Sheyla Cruz on 08-22-2023 RBC (Bld) [#/Vol] 4.45 10*6/uL 4.2-5.4 [facility] Serum or plasma calcium allan urement (mass/volume)Ordered By: Sheyla Cruz on 08-22-2023 Calcium [Mass/Vol] 9.6 mg/dL 8.5-10.1 [facility] Serum or plasma creatinine m easurement (mass/volume)Ordered By: Sheyla Cruz on 08-22-2023 Creatinine [Mass/Vol] 0.74 mg/dL 0.55-1.02 [facility] Comment on above: The validity of the calculated GFR & GFRAA in patients over 70 years has not been determined. Clinical correlation is essential. Serum or plasma urea nitroge n measurement (mass/volume)Ordered By: Sheyla Cruz on 08-22-2023 Urea nitrogen [Mass/Vol] 20 mg/dL 02-19 [facility] Thin prep Papanicolaou smear with manual screeningOrdered By: Sheyla Cruz on 08-22-2023 Thin prep Papanicolaou smear with manual screening 3.8 g/dL 3.2-5.0 [facility] Thin prep Papanicolaou smear with manual screening 20 U/L 15-37 [facility] Thin prep Papanicolaou smear with manual screening 5 5-15 [facility] E2on 08-07-2023 Estradiol Level <11.80 Normal [facility] ([place]) Comment on above: Result Comment: No te - New Reference Range in effect 20 Adult Female E2 Reference Ranges: Follicular phase 19.5 - 144.2 pg/mL Midcycle 63.9 - 356.7 pg/mL Luteal phase 55.8 - 214.2 pg/mL Post menopausal 0 - 33.2 pg/mL Performed By: #### C MP, FT4, FT3, TSH, VIDH, GFR #### [address] [place], [place] [address] FSHon 08-07-2023 FSH 65.6 mIU/mL Normal [facility] ([place]) Comment on above: Result Comment: Adul t Female FSH Reference Ranges (06/28/99): Follicular phase 2.5 - 10.2 mIU/mL Midcycle phase 3.4 - 33.4 mIU/mL Luteal phase 1.5 - 9.1 mIU/mL Post menopausal 23.0 -116.3 mIU/mL Adult Male: 1.4 - 18.1 mIU/mL Performed By: #### C MP, FT4, FT3, TSH, VIDH, GFR #### [id number] [place], [place] [address] LABORATORYOrdered By: SYSTEM SYSTEM on 08-07-2023 E2 [Mass/Vol] pg/mL Invalid Interpretation Code [facility] Comment on above: Interpretive Data: * *Note - New Reference Range in effect 20 Adult Female E2 Reference Ranges: Follicular phase 19.5 - 144.2 pg/mL Midcycle 63.9 - 356.7 pg/mL Luteal phase 55.8 - 214.2 pg/mL Post menopausal 0 - 33.2 pg/mL Follitropin Qn 65.6 m[IU]/mL Invalid Interpretation Code [facility] Comment on above: Interpretive Data: A dult Female FSH Reference Ranges (06/28/99): Follicular phase 2.5 - 10.2 mIU/mL Midcycle phase 3.4 - 33.4 mIU/mL Luteal phase 1.5 - 9.1 mIU/mL Post menopausal 23.0 -116.3 mIU/mL Adult Male: 1.4 - 18.1 mIU/mL Lutropin Qn 38.0 m[IU]/mL Invalid Interpretation Code [facility] Comment on above: Interpretive Data: * *Note - New Reference Range in effect 20Adult Female LH Reference Ranges: Follicular phase 1.9 - 12.5 mIU/mL Midcycle phase 8.7 - 76.3 mIU/mL Luteal phase 0.5 - 16.9 mIU/mL Post menopausal 5.0 - 55.2 mIU/mL LHon 08-07-2023 LH 38.0 mIU/mL Normal [facility] ([place]) Comment on above: Result Comment: No te - New Reference Range in effect 20Adult Female LH Reference Ranges: Follicular phase 1.9 - 12.5 mIU/mL Midcycle phase 8.7 - 76.3 mIU/mL Luteal phase 0.5 - 16.9 mIU/mL Post menopausal 5.0 - 55.2 mIU/mL Performed By: #### C MP, FT4, FT3, TSH, VIDH, GFR #### Sandi [address] [address] .GFRon 07-03-2023 GFR 95 ml/min/1.73sqm Normal [facility] ([place]) Comment on above: Result Comment: GFR Population [...] MP, FT4, FT3, TSH, VIDH, GFR #### [address] [address] GFR Non- 78 ml/min/1.73sqm Normal [facility] ([place]) Comment on above: Result Comment: GFR Population [...] MP, FT4, FT3, TSH, VIDH, GFR #### [address] [address] CMPon 07-03-2023 Albumin Level 3.6 G/dL Normal 3.5-5.0 [facility] ([place]) Comment on above: Performed By: #### C MP, FT4, FT3, TSH, VIDH, GFR #### [address] [address] Albumin/Globulin [Mass ratio] 1.1 {ratio} Normal 1.1-2.5 [facility] ([place]) Comment on above: Performed By: #### C MP, FT4, FT3, TSH, VIDH, GFR #### [address] [address] ALP [Catalytic activity/Vol] 68 U/L Normal 40-135 [facility] ([place]) Comment on above: Performed By: #### C MP, FT4, FT3, TSH, VIDH, GFR #### [address] [address] ALT [Catalytic activity/Vol] 32 U/L Normal 14-59 [facility] ([place]) Comment on above: Performed By: #### C MP, FT4, FT3, TSH, VIDH, GFR #### [address] [address] AST [Catalytic activity/Vol] 13 U/L Normal 10-40 [facility] ([place]) Comment on above: Performed By: #### C MP, FT4, FT3, TSH, VIDH, GFR #### [address] [address] Bili Total 0.3 mg/dL Normal 0.2-1.0 [facility] ([place]) Comment on above: Result Comment: Use of this assay is not recommended for patients undergoing treatment with eltrombopag due to the potential for falsely elevated results. Performed By: #### C MP, FT4, FT3, TSH, VIDH, GFR #### [address] [address] BUN/Creatinine Ratio 27 ratio Normal 7-27 [facility] ([place]) Comment on above: Performed By: #### C MP, FT4, FT3, TSH, VIDH, GFR #### [address] [address] Calcium [Mass/Vol] 9.3 mg/dL Normal 8.4-10.2 [facility] ([place]) Comment on above: Performed By: #### C MP, FT4, FT3, TSH, VIDH, GFR #### [address] [address] Chloride [Moles/Vol] 102 mmol/L Normal 98-107 [facility] ([place]) Comment on above: Performed By: #### C MP, FT4, FT3, TSH, VIDH, GFR #### [address] [address] CO2 [Moles/Vol] 29 mmol/L Normal 22-29 [facility] ([place]) Comment on above: Performed By: #### C MP, FT4, FT3, TSH, VIDH, GFR #### [address] [address] Creatinine [Mass/Vol] 0.77 mg/dL Normal 0.55-1.02 [facility] ([place]) Comment on above: Performed By: #### C MP, FT4, FT3, TSH, VIDH, GFR #### [address] [address] Electrolyte Balance 8.0 mEq/L Normal 4.0-15.0 [facility] ([place]) Comment on above: Performed By: #### C MP, FT4, FT3, TSH, VIDH, GFR #### [address] [address] Globulin 3.4 G/dL Normal [facility] ([place]) Comment on above: Performed By: #### C MP, FT4, FT3, TSH, VIDH, GFR #### [address] [address] Glucose [Mass/Vol] 116 mg/dL High 70-105 [facility] ([place]) Comment on above: Performed By: #### C MP, FT4, FT3, TSH, VIDH, GFR #### [address] [address] Potassium [Moles/Vol] 4.4 mmol/L Normal 3.5-5.1 [facility] [facility] ([place]) Comment on above: Performed By: #### C MP, FT4, FT3, TSH, VIDH, GFR #### [address] [address] Sodium [Moles/Vol] 139 mmol/L Normal 136-145 [facility] ([place]) Comment on above: Performed By: #### C MP, FT4, FT3, TSH, VIDH, GFR #### [address] [address] Total Protein 7.0 G/dL Normal 6.4-8.2 [facility] ([place]) Comment on above: Performed By: #### C MP, FT4, FT3, TSH, VIDH, GFR #### [address] [address] Urea nitrogen [Mass/Vol] 21 mg/dL High 7-18 [facility] ([place]) Comment on above: Performed By: #### C MP, FT4, FT3, TSH, VIDH, GFR #### [address] [address] FT3on 07-03-2023 Free T3 [Mass/Vol] 2.87 pg/mL Normal 2.30-4.00 [facility] ([place]) Comment on above: Performed By: #### C MP, FT4, FT3, TSH, VIDH, GFR #### [id number] [place], [place] [address] FT4on 07-03-2023 Free T4 [Mass/Vol] 1.08 ng/dL Normal 0.76-1.46 [facility] ([place]) Comment on above: Performed By: #### C MP, FT4, FT3, TSH, VIDH, GFR #### Sandi [address] [address] LABORATORYOrdered By: SYSTEM SYSTEM on 07-03-2023 25-hydroxyvitamin [...] 07-03-2023 TSH Qn 0.01 m[IU]/L Low 0.36-3.74 [facility] ([place]) Comment on above: Performed By: #### C MP, FT4, FT3, TSH, VIDH, GFR #### [place] [id number] VIDHon 07-03-2023 Vit. D 25-Hydroxy 69.3 ng/mL Normal [facility] ([place]) Comment on above: Result Comment: Inte rpretive Values Based on Total 25(OH) Vitamin D: Deficient <20 ng/mL Insufficient 20 - <30 ng/mL Sufficient 30-100 ng/mL Performed By: #### C MP, FT4, FT3, TSH, VIDH, GFR #### [place] [id number] Absolute lymphocyte countOrd ered By: Sheyla Cruz on 06-05-2023 Lymphocytes Auto (Unsp spec) [#/Vol] 1.84 10*3/uL 0.83-4.51 [facility] Basophil percentageOrdered B y: Sheyla Cruz on 06-05-2023 Basophils/100 WBC (Bld) 1.1 % 0-1 [facility] Bilirubin [Mass/Vol] 0.40 mg/dL 0.20-1.00 [facility] Comment on above: For patients on eltr ombopag therapy, use of Dimension [place] TBIL is not recommended. Chloride [Moles/Vol] 106 mmol/L 98-107 [facility] Eosinophils/100 WBC (Bld) 5.3 % 0-5 [facility] Glucose [Mass/Vol] 95 mg/dL 74-106 [facility] Neutrophils (Bld) [#/Vol] 2.2 10*3/uL 2.0-7.7 [facility] Neutrophils/100 WBC (Bld) 45.7 % 47-70 [facility] Potassium [Moles/Vol] 4.4 mmol/L 3.5-5.1 [facility] Protein [Mass/Vol] 7.3 g/dL 6.4-8.2 [facility] Sodium [Moles/Vol] 138 mmol/L 136-145 [facility] WBC (Bld) [#/Vol] 4.8 10*3/uL 4.4-11.0 [facility] Blood erythrocytes count (nu mber/volume)Ordered By: Sheyla Cruz on 06-05-2023 RBC (Bld) [#/Vol] 4.31 10*6/uL 4.2-5.4 [facility] Blood hemoglobin measurement (mass/volume)Ordered By: Sheyla Cruz on 06-05-2023 Hemoglobin (Bld) [Mass/Vol] 12.6 g/dL 12.0-15.0 [facility] Blood lymphocytes/100 leukoc ytesOrdered By: Sheyla Cruz on 06-05-2023 Lymphocytes/100 WBC (Bld) 38.7 % 19-41 [facility] Blood monocytes/100 leukocyt esOrdered By: Sheyla Cruz on 06-05-2023 Monocytes/100 WBC (Bld) 8.8 % 0-10 [facility] Blood platelet mean volumeOr dered By: Sheyla Cruz on 06-05-2023 Platelet mean volume (Bld) [Entitic vol] 10.6 fL 6.2-12.0 [facility] Determination of erythrocyte mean corpuscular volume (MCV)Ordered By: Sheyla Cruz on 06-05-2023 MCV (RBC) [Entitic vol] 89.6 fL 81-99 [facility] Hematocrit Auto (Bld) [Volum e fraction]Ordered By: Sheyla Cruz on 06-05-2023 Hematocrit (Bld) [Volume fraction] 38.6 % 37-47 [facility] Laboratory - Chemistry and C hemistry - challengeOrdered By: Sheyla Cruz on 06-05-2023 ALP [Catalytic activity/Vol] 57 U/L 45-117 [facility] ALT [Catalytic activity/Vol] 46 U/L 13-56 [facility] CO2 [Moles/Vol] 29.0 mmol/L 21.0-32.0 [facility] Globulin (S) [Mass/Vol] 3.6 g/dL 2.2-4.2 [facility] Urea nitrogen/Creatinine [Mass ratio] 23.1 mg/mg 10-20 [facility] Laboratory - Hematology and Cell countsOrdered By: Sheyla Cruz on 06-05-2023 Erythrocyte distribution width (RBC) [Entitic vol] 41.7 fL 35.1-43.9 [facility] Erythrocyte distribution width (RBC) [Ratio] 12.6 % 11.6-14.6 [facility] Immature granulocytes/100 WBC (Bld) 0.400 % 0.0-0.9 [facility] Comment on above: IG% - Immature Granu locytes (promyelocytes, myelocytes and metamyelocytes) > 1% indicates that a LEFT SHIFT is Present. MCH (RBC) [Entitic mass] 29.2 pg 27.0-32.0 [facility] Nucleated RBC/100 WBC (Bld) [Ratio] 0 % 0-5 [facility] MCHC Auto (RBC) [Mass/Vol]Or dered By: Sheyla Cruz on 06-05-2023 MCHC (RBC) [Mass/Vol] 32.6 g/dL 32-36 [facility] No Panel InformationOrdered By: Sheyla Cruz on 06-05-2023 Estimated GFR (MDRD) Amer 106 mL/min >60 [facility] Comment on above: GFR Calc Estimated GFR (MDRD) Non-Af Amer 88 mL/min >60 [facility] Comment on above: Non- GFR Calc Platelets bldOrdered By: Estee Cruz on 06-05-2023 Platelets (Bld) [#/Vol] 323 10*3/uL 150-450 [facility] Serum or plasma albumin allan urement (mass/volume)Ordered By: Sheyla Cruz on 06-05-2023 Albumin [Mass/Vol] 3.7 g/dL 3.2-5.0 [facility] Serum or plasma albumin/glob ulin mass ratioOrdered By: Sheyla Cruz on 06-05-2023 Albumin/Globulin [Mass ratio] 1.0 {ratio} 0.9-2.4 [facility] Serum or plasma calcium allan urement (mass/volume)Ordered By: Sheyla Cruz on 06-05-2023 Calcium [Mass/Vol] 9.2 mg/dL 8.5-10.1 [facility] Serum or plasma creatinine m easurement (mass/volume)Ordered By: Sheyla Cruz on 06-05-2023 Creatinine [Mass/Vol] 0.74 mg/dL 0.55-1.02 [facility] Comment on above: The validity of the calculated GFR & GFRAA in patients over 70 years has not been determined. Clinical correlation is essential. Serum or plasma urea nitroge n measurement (mass/volume)Ordered By: Sheyla Cruz on 06-05-2023 Urea nitrogen [Mass/Vol] 17 mg/dL 7-18 [facility] Thin prep Papanicolaou smear with manual screeningOrdered By: Sheylagalina Cruz on 06-05-2023 Thin prep Papanicolaou smear with manual screening 22 U/L 15-37 [facility] Thin prep Papanicolaou smear with manual screening 3 5-15 [facility] .GFRon 05-04-2023 GFR 103 ml/min/1.73sqm Normal [facility] ([place]) Comment on above: Result Comment: GFR Population [...] MP, FT4, FT3, TSH, VIDH, GFR #### [address] [address] GFR Non- 85 ml/min/1.73sqm Normal [facility] ([place]) Comment on above: Result Comment: GFR Population [...] MP, FT4, FT3, TSH, VIDH, GFR #### [address] [address] CMPon 05-04-2023 Albumin Level 3.5 G/dL Normal 3.5-5.0 [facility] ([place]) Comment on above: Performed By: #### C MP, GFR, LIPID, FT3, TSH, FT4 #### [address] [address] Albumin/Globulin [Mass ratio] 0.9 {ratio} Low 1.1-2.5 [facility] ([place]) Comment on above: Performed By: #### C MP, GFR, LIPID, FT3, TSH, FT4 #### [address] [address] ALP [Catalytic activity/Vol] 60 U/L Normal 40-135 [facility] ([place]) Comment on above: Performed By: #### C MP, GFR, LIPID, FT3, TSH, FT4 #### [address] [address] ALT [Catalytic activity/Vol] 24 U/L Normal 14-59 [facility] ([place]) Comment on above: Performed By: #### C MP, GFR, LIPID, FT3, TSH, FT4 #### [address] [address] AST [Catalytic activity/Vol] 13 U/L Normal 10-40 [facility] ([place]) Comment on above: Performed By: #### C MP, GFR, LIPID, FT3, TSH, FT4 #### [address] [address] Bili Total 0.3 mg/dL Normal 0.2-1.0 [facility] ([place]) Comment on above: Result Comment: Use of this assay is not recommended for patients undergoing treatment with eltrombopag due to the potential for falsely elevated results. Performed By: #### C MP, GFR, LIPID, FT3, TSH, FT4 #### [address] [address] BUN/Creatinine Ratio 18 ratio Normal 7-27 [facility] ([place]) Comment on above: Performed By: #### C MP, GFR, LIPID, FT3, TSH, FT4 #### [address] [address] Calcium [Mass/Vol] 9.5 mg/dL Normal 8.4-10.2 [facility] ([place]) Comment on above: Performed By: #### C MP, GFR, LIPID, FT3, TSH, FT4 #### [address] [address] Chloride [Moles/Vol] 104 mmol/L Normal 98-107 [facility] ([place]) Comment on above: Performed By: #### C MP, GFR, LIPID, FT3, TSH, FT4 #### [address] [address] CO2 [Moles/Vol] 30 mmol/L High 22-29 [facility] ([place]) Comment on above: Performed By: #### C MP, GFR, LIPID, FT3, TSH, FT4 #### [address] [address] Creatinine [Mass/Vol] 0.72 mg/dL Normal 0.55-1.02 [facility] ([place]) Comment on above: Performed By: #### C MP, GFR, LIPID, FT3, TSH, FT4 #### [address] [address] Electrolyte Balance 6.0 mEq/L Normal 4.0-15.0 [facility] ([place]) Comment on above: Performed By: #### C MP, GFR, LIPID, FT3, TSH, FT4 #### [address] [address] Globulin 3.8 G/dL Normal [facility] ([place]) Comment on above: Performed By: #### C MP, GFR, LIPID, FT3, TSH, FT4 #### [address] [address] Glucose [Mass/Vol] 100 mg/dL Normal 70-105 [facility] ([place]) Comment on above: Performed By: #### C MP, GFR, LIPID, FT3, TSH, FT4 #### [address] [address] Potassium [Moles/Vol] 4.8 mmol/L Normal 3.5-5.1 [facility] ([place]) Comment on above: Performed By: #### C MP, GFR, LIPID, FT3, TSH, FT4 #### [address] [address] Sodium [Moles/Vol] 140 mmol/L Normal 136-145 [facility] ([place]) Comment on above: Performed By: #### C MP, GFR, LIPID, FT3, TSH, FT4 #### [address] [address] Total Protein 7.3 G/dL Normal 6.4-8.2 [facility] ([place]) Comment on above: Performed By: #### C MP, GFR, LIPID, FT3, TSH, FT4 #### [address] [address] Urea nitrogen [Mass/Vol] 13 mg/dL Normal 7-18 [facility] ([place]) Comment on above: Performed By: #### C MP, GFR, LIPID, FT3, TSH, FT4 #### [address] [address] FT3on 05-04-2023 Free T3 [Mass/Vol] 2.17 pg/mL Low 2.30-4.00 [facility] ([place]) Comment on above: Performed By: #### C MP, GFR, LIPID, FT3, TSH, FT4 #### [address] [address] FT4on 05-04-2023 Free T4 [Mass/Vol] 1.06 ng/dL Normal 0.76-1.46 [facility] ([place]) Comment on above: Performed By: #### C MP, GFR, LIPID, FT3, TSH, FT4 #### [address] [address] LIPIDon 05-04-2023 Cholesterol [Mass/Vol] 150 mg/dL Normal 0-200 [facility] ([place]) Comment on above: Result Comment: Chol esterol Reference Interval: Less than 200 Desirable 200-239 Borderline high risk 240 and above High risk Performed By: #### C MP, FT4, FT3, TSH, VIDH, GFR #### [address] [address] Cholesterol in HDL [Mass/Vol] 44 mg/dL Normal 40-60 [facility] ([place]) Comment on above: Performed By: #### C MP, FT4, FT3, TSH, VIDH, GFR #### [address] [address] Cholesterol in LDL [Mass/Vol] 89 mg/dL Normal 0-130 [facility] ([place]) Comment on above: Performed By: #### C MP, FT4, FT3, TSH, VIDH, GFR #### [place] [id number] [place], [place] [address] Triglyceride [Mass/Vol] 84 mg/dL Normal 0-150 A [facility] ([place]) Comment on above: Result Comment: Trig lyceride Reference Interval: Less than 150 Normal 150-199 Borderline high risk 200-499 High risk 500 or higher Very high risk Performed By: #### C MP, FT4, FT3, TSH, VIDH, GFR #### [address] [id number] [place], [place] [address] TSHon 05-04-2023 TSH Qn 1.51 m[IU]/L Normal 0.36-3.74 [facility] ([place]) Comment on above: Performed By: #### C MP, GFR, LIPID, FT3, TSH, FT4 #### [id number] [place], [place] [address] Absolute lymphocyte countOrd ered By: Noel Roberts on 04-27-2023 Lymphocytes Auto (Unsp spec) [#/Vol] 0.96 10*3/uL 0.83-4.51 [facility] Basophil percentageOrdered B y: Noel Roberts on 04-27-2023 Basophils/100 WBC (Bld) 0.4 % 0-1 [facility] Eosinophils/100 WBC (Bld) 3.0 % 0-5 [facility] Neutrophils (Bld) [#/Vol] 7.1 10*3/uL 2.0-7.7 [facility] Neutrophils/100 WBC (Bld) 76.0 % 47-70 [facility] WBC (Bld) [#/Vol] 9.3 10*3/uL 4.4-11.0 [facility] Bilirubin Test strip Ql (U)O rdered By: Noel Roberts on 04-27-2023 Bilirubin Ql (U) Negative Negative [facility] Blood erythrocytes count (nu mber/volume)Ordered By: Noel Roberts on 04-27-2023 RBC (Bld) [#/Vol] 3.56 10*6/uL 4.2-5.4 [place] [facility] Blood hemoglobin measurement (mass/volume)Ordered By: Noel Roberts on 04-27-2023 Hemoglobin (Bld) [Mass/Vol] 10.7 g/dL 12.0-15.0 [facility] Blood lymphocytes/100 leukoc ytesOrdered By: Noel Roberts on 04-27-2023 Lymphocytes/100 WBC (Bld) 10.3 % 19-41 [facility] Blood monocytes/100 leukocyt esOrdered By: Noel Roberts on 04-27-2023 Monocytes/100 WBC (Bld) 9.7 % 0-10 [facility] Blood platelet mean volumeOr dered By: Noel Roberts on 04-27-2023 Platelet mean volume (Bld) [Entitic vol] 10.2 fL 6.2-12.0 [facility] Determination of erythrocyte mean corpuscular volume (MCV)Ordered By: Noel Roberts on 04-27-2023 MCV (RBC) [Entitic vol] 90.7 fL 81-99 [facility] Hematocrit Auto (Bld) [Volum e fraction]Ordered By: Noel Roberts on 04-27-2023 Hematocrit (Bld) [Volume fraction] 32.3 % 37-47 [facility] Ketones Test strip Ql (U)Ord ered By: Noel Roberts on 04-27-2023 Ketones Ql (U) Negative Negative [facility] Laboratory - Hematology and Cell countsOrdered By: Noel Roberts on 04-27-2023 Erythrocyte distribution width (RBC) [Entitic vol] 40.4 fL 35.1-43.9 [facility] Erythrocyte distribution width (RBC) [Ratio] 12.0 % 11.6-14.6 [facility] Immature granulocytes/100 WBC (Bld) 0.600 % 0.0-0.9 [facility] Comment on above: IG% - Immature Granu locytes (promyelocytes, myelocytes and metamyelocytes) > 1% indicates that a LEFT SHIFT is Present. MCH (RBC) [Entitic mass] 30.1 pg 27.0-32.0 [facility] Nucleated RBC/100 WBC (Bld) [Ratio] 0 % 0-5 [facility] MCHC Auto (RBC) [Mass/Vol]Or dered By: Noel Roberts on 04-27-2023 MCHC (RBC) [Mass/Vol] 33.1 g/dL 32-36 [facility] Nitrite Test strip Ql (U)Ord ered By: Noel Roberts on 04-27-2023 Nitrite Ql (U) Negative Negative [facility] Platelets bldOrdered By: Marcus Rboerts on 04-27-2023 Platelets (Bld) [#/Vol] 369 10*3/uL 150-450 [facility] Protein Test strip Ql (U)Ord ered By: Noel Roberts on 04-27-2023 Protein Ql (U) 30 mg/dl Negative [facility] Urine blood detectionOrdered By: Noel Roberts on 04-27-2023 RBC Ql (U) 250 /ul Negative [facility] Urine clarityOrdered By: Marcus Roberts on 04-27-2023 Clarity (U) Sl. Cloudy Clear [facility] Urine color determinationOrd ered By: Noel Roberts on 04-27-2023 Color (U) Yellow Yellow [facility] Urine glucose detectionOrder ed By: Noel Roberts on 04-27-2023 Glucose Ql (U) Normal mg/dl Normal [facility] Urine leukocyte esterase det ection by dipstickOrdered By: Noel Roberts on 04-27-2023 Leukocyte esterase Test strip Ql (U) 500 /ul Negative [facility] Urine pHOrdered By: Noel Roberts on 04-27-2023 pH (U) 8.0 [pH] 5.0 - 8.0 [facility] Urine specific gravity measu rementOrdered By: Noel Roberts on 04-27-2023 Specific gravity (U) [Rel density] 1.010 1.002-1.030 [facility] Urobilinogen Auto test strip Ql (U)Ordered By: Noel Roberts on 04-27-2023 Urobilinogen Ql (U) 8 mg/dl Normal [facility] Basophil percentageOrdered B y: Rashmi Colin on 04-26-2023 Chloride [Moles/Vol] 106 mmol/L 98-107 [facility] Glucose [Mass/Vol] 122 mg/dL 74-106 [facility] Comment on above: Fasting Glucose resu lt from 100 to 125 mg/dL suggests IMPAIRED HOMEOSTASIS per A.D.A. criteria. Potassium [Moles/Vol] 3.2 mmol/L 3.5-5.1 [facility] Sodium [Moles/Vol] 138 mmol/L 136-145 [facility] Laboratory - Chemistry and C hemistry - challengeOrdered By: Rashmi Colin on 04-26-2023 CO2 [Moles/Vol] 27.0 mmol/L 21.0-32.0 [facility] Urea nitrogen/Creatinine [Mass ratio] 12.2 mg/mg 10-20 [facility] No Panel InformationOrdered By: Rashmi Colin on 04-26-2023 Estimated Creatinine Clearance Calc 133.94 ml/min [facility] Estimated GFR (MDRD) Amer 169 mL/min >60 [facility] Comment on above: GFR Calc Estimated GFR (MDRD) Non-Af Amer 140 mL/min >60 [facility] Comment on above: Non- GFR Calc Serum or plasma calcium allan urement (mass/volume)Ordered By: Rashmi Colin on 04-26-2023 Calcium [Mass/Vol] 8.2 mg/dL 8.5-10.1 [facility] Serum or plasma creatinine m easurement (mass/volume)Ordered By: Rashmi Colin on 04-26-2023 Creatinine [Mass/Vol] 0.49 mg/dL 0.55-1.02 [facility] Comment on above: The validity of the calculated GFR & GFRAA in patients over 70 years has not been determined. Clinical correlation is essential. Serum or plasma urea nitroge n measurement (mass/volume)Ordered By: Rashmi Colin on 04-26-2023 Urea nitrogen [Mass/Vol] 6 mg/dL 7-18 [facility] Thin prep Papanicolaou smear with manual screeningOrdered By: Rashmi Colin on 04-26-2023 Thin prep Papanicolaou smear with manual screening 5 5-15 [facility] Basophil percentageOrdered B y: Noel Roberts on 04-25-2023 Basophil percentage 2.5 mg/dL 2.5-4.9 [facility] Laboratory - Chemistry and C hemistry - challengeOrdered By: Noel Roberts on 04-25-2023 Magnesium [Mass/Vol] 2.0 mg/dL 1.6-2.6 [facility] Anaerobic cultureOrdered By: Noel Roberts on 04-24-2023 Bacteria identified Anaer cx Nom (Unsp spec) No anaerobic bacteria isolated. [facility] Bacteria identified Anaer cx Nom (Unsp spec) No anaerobic bacteria isolated. [facility] Bacteria identified Cx Nom ( Wound)Ordered By: Noel Roberts on 04-24-2023 Wound Culture Citrobacter freundii [facility] Wound Culture Streptococcus group F [facility] Wound Culture Citrobacter freundii [facility] Wound Culture Streptococcus group F [facility] Gram stain for investigation of transfusion reactionOrdered By: Noel Roberts on 04-24-2023 Microscopic observation Gram stain Nom (Unsp spec) [facility] Microscopic observation Gram stain Nom (Unsp spec) [facility] Absolute lymphocyte countOrd ered By: Iban Torres on 04-23-2023 Lymphocytes Auto (Unsp spec) [#/Vol] 1.69 10*3/uL 0.83-4.51 [facility] Basophil percentageOrdered B y: Jass Valderrama on 04-23-2023 Basophil percentage 0 SEEN /hpf 0-5 [facility] Basophil percentageOrdered B y: Iban Torres on 04-23-2023 Basophils/100 WBC (Bld) 0.3 % 0-1 [facility] Bilirubin [Mass/Vol] 0.50 mg/dL 0.20-1.00 [facility] Comment on above: For patients on eltr ombopag therapy, use of Dimension [place] TBIL is not recommended. Chloride [Moles/Vol] 105 mmol/L 98-107 [facility] Eosinophils/100 WBC (Bld) 2.5 % 0-5 [facility] Glucose [Mass/Vol] 101 mg/dL 74-106 [facility] Comment on above: Fasting Glucose resu lt from 100 to 125 mg/dL suggests IMPAIRED HOMEOSTASIS per A.D.A. criteria. Neutrophils (Bld) [#/Vol] 7.6 10*3/uL 2.0-7.7 [facility] Neutrophils/100 WBC (Bld) 71.5 % 47-70 [facility] Potassium [Moles/Vol] 3.8 mmol/L 3.5-5.1 [facility] Protein [Mass/Vol] 7.1 g/dL 6.4-8.2 [facility] Sodium [Moles/Vol] 138 mmol/L 136-145 [facility] WBC (Bld) [#/Vol] 10.6 10*3/uL 4.4-11.0 [facility] Blood erythrocytes count (nu mber/volume)Ordered By: Iban Torres on 04-23-2023 RBC (Bld) [#/Vol] 3.95 10*6/uL 4.2-5.4 [facility] Blood hemoglobin measurement (mass/volume)Ordered By: Iban Torres on 04-23-2023 Hemoglobin (Bld) [Mass/Vol] 11.6 g/dL 12.0-15.0 [facility] Blood lymphocytes/100 leukoc ytesOrdered By: Iban Torres on 04-23-2023 Lymphocytes/100 WBC (Bld) 15.9 % 19-41 [facility] Blood monocytes/100 leukocyt esOrdered By: Iban Torres on 04-23-2023 Monocytes/100 WBC (Bld) 9.5 % 0-10 [facility] Blood platelet mean volumeOr dered By: Iban Torres on 04-23-2023 Platelet mean volume (Bld) [Entitic vol] 10.2 fL 6.2-12.0 [facility] Determination of erythrocyte mean corpuscular volume (MCV)Ordered By: Iban Torres on 04-23-2023 MCV (RBC) [Entitic vol] 90.4 fL 81-99 [facility] Hematocrit Auto (Bld) [Volum e fraction]Ordered By: Iban Torres on 04-23-2023 Hematocrit (Bld) [Volume fraction] 35.7 % 37-47 [facility] Laboratory - Chemistry and C hemistry - challengeOrdered By: Iban Torres on 04-23-2023 ALP [Catalytic activity/Vol] 59 U/L 45-117 [facility] ALT [Catalytic activity/Vol] 23 U/L 13-56 [facility] CO2 [Moles/Vol] 30.0 mmol/L 21.0-32.0 [facility] Globulin (S) [Mass/Vol] 3.8 g/dL 2.2-4.2 [facility] Lipase [Catalytic activity/Vol] 20 U/L 13-75 [facility] Comment on above: Please note:LIPASE r evised reference range effective 22. New Lipase methodology. Expected to produce lower values than the previous assay method. NEW Reference Range: 13 - 75 U/L Urea nitrogen/Creatinine [Mass ratio] 23.8 mg/mg 10-20 [facility] Laboratory - Hematology and Cell countsOrdered By: Iban Torres on 04-23-2023 Erythrocyte distribution width (RBC) [Entitic vol] 39.5 fL 35.1-43.9 [facility] Erythrocyte distribution width (RBC) [Ratio] 11.9 % 11.6-14.6 [facility] Immature granulocytes/100 WBC (Bld) 0.300 % 0.0-0.9 [facility] Comment on above: IG% - Immature Granu locytes (promyelocytes, myelocytes and metamyelocytes) > 1% indicates that a LEFT SHIFT is Present. MCH (RBC) [Entitic mass] 29.4 pg 27.0-32.0 [facility] Nucleated RBC/100 WBC (Bld) [Ratio] 0 % 0-5 [facility] MCHC Auto (RBC) [Mass/Vol]Or dered By: Iban Torres on 04-23-2023 MCHC (RBC) [Mass/Vol] 32.5 g/dL 32-36 [facility] Mucus LM Ql (Urine sed)Order ed By: Jass Valderrama on 04-23-2023 Mucus Ql (Urine sed) 0 SEEN /hpf [facility] No Panel InformationOrdered By: Iban Torres on 04-23-2023 Estimated Creatinine Clearance Calc 97.96 ml/min [facility] Estimated GFR (MDRD) Amer 118 mL/min >60 [facility] Comment on above: GFR Calc Estimated GFR (MDRD) Non-Af Amer 98 mL/min >60 [facility] Comment on above: Non- GFR Calc Platelets bldOrdered By: Ginna Torres on 04-23-2023 Platelets (Bld) [#/Vol] 394 10*3/uL 150-450 [facility] Serum or plasma albumin allan urement (mass/volume)Ordered By: Iban Torres on 04-23-2023 Albumin [Mass/Vol] 3.3 g/dL 3.2-5.0 [facility] Serum or plasma albumin/glob ulin mass ratioOrdered By: Iban Torres on 04-23-2023 Albumin/Globulin [Mass ratio] 0.9 {ratio} 0.9-2.4 [facility] Serum or plasma calcium allan urement (mass/volume)Ordered By: Iban Torres on 04-23-2023 Calcium [Mass/Vol] 8.7 mg/dL 8.5-10.1 [facility] Serum or plasma creatinine m easurement (mass/volume)Ordered By: Iban Torres on 04-23-2023 Creatinine [Mass/Vol] 0.67 mg/dL 0.55-1.02 [facility] Comment on above: The validity of the calculated GFR & GFRAA in patients over 70 years has not been determined. Clinical correlation is essential. Serum or plasma urea nitroge n measurement (mass/volume)Ordered By: Iban Torres on 04-23-2023 Urea nitrogen [Mass/Vol] 16 mg/dL 7-18 [facility] Squamous epithelial cells de tection in urine sediment by light microscopyOrdered By: Jass Valderrama on 04-23-2023 Epithelial cells.squamous LM Ql (Urine sed) 0 SEEN /hpf 5-10 [facility] Thin prep Papanicolaou smear with manual screeningOrdered By: Iban Torres on 04-23-2023 Thin prep Papanicolaou smear with manual screening 14 U/L 15-37 [facility] Thin prep Papanicolaou smear with manual screening 3 5-15 [facility] Urine blood detectionOrdered By: Jass Valderrama on 04-23-2023 RBC Ql (U) 0 SEEN /hpf 0-5 [facility] Urine sediment bacteria coun t by microscopy (number/high power field)Ordered By: Jass Valderrama on 04-23-2023 Bacteria LM.HPF (Urine sed) [#/Area] 0 /[HPF] None Seen [facility] Absolute lymphocyte countOrd ered By: Sheyla Cruz on 02-19-2023 Lymphocytes Auto (Unsp spec) [#/Vol] 1.99 10*3/uL 0.83-4.51 [facility] Basophil percentageOrdered B y: Sheyla Cruz on 02-19-2023 Basophils/100 WBC (Bld) 0.5 % 0-1 [facility] Bilirubin [Mass/Vol] 0.30 mg/dL 0.20-1.00 [facility] Comment on above: For patients on eltr ombopag therapy, use of Dimension [place] TBIL is not recommended. Chloride [Moles/Vol] 109 mmol/L 98-107 [facility] Eosinophils/100 WBC (Bld) 3.5 % 0-5 [facility] Glucose [Mass/Vol] 93 mg/dL 74-106 [facility] Neutrophils (Bld) [#/Vol] 3.2 10*3/uL 2.0-7.7 [facility] Neutrophils/100 WBC (Bld) 53.4 % 47-70 [facility] Potassium [Moles/Vol] 3.6 mmol/L 3.5-5.1 [facility] Protein [Mass/Vol] 7.0 g/dL 6.4-8.2 [facility] Sodium [Moles/Vol] 138 mmol/L 136-145 [facility] WBC (Bld) [#/Vol] 6.0 10*3/uL 4.4-11.0 [facility] Blood erythrocytes count (nu mber/volume)Ordered By: Sheyla Cruz on 02-19-2023 RBC (Bld) [#/Vol] 4.27 10*6/uL 4.2-5.4 [facility] Blood hemoglobin measurement (mass/volume)Ordered By: Sheyla Cruz on 02-19-2023 Hemoglobin (Bld) [Mass/Vol] 13.1 g/dL 12.0-15.0 [facility] Blood lymphocytes/100 leukoc ytesOrdered By: Sheyla Cruz on 02-19-2023 Lymphocytes/100 WBC (Bld) 33.4 % 19-41 [facility] Blood monocytes/100 leukocyt esOrdered By: Sheyla Cruz on 02-19-2023 Monocytes/100 WBC (Bld) 8.9 % 0-10 [facility] Blood platelet mean volumeOr dered By: Sheyla Cruz on 02-19-2023 Platelet mean volume (Bld) [Entitic vol] 10.9 fL 6.2-12.0 [facility] Determination of erythrocyte mean corpuscular volume (MCV)Ordered By: Sheyla Cruz on 02-19-2023 MCV (RBC) [Entitic vol] 91.6 fL 81-99 [facility] Hematocrit Auto (Bld) [Volum e fraction]Ordered By: Sheyla Cruz on 02-19-2023 Hematocrit (Bld) [Volume fraction] 39.1 % 37-47 [facility] Laboratory - Chemistry and C hemistry - challengeOrdered By: Sheylagalina Cruz on 02-19-2023 ALP [Catalytic activity/Vol] 50 U/L 45-117 [facility] ALT [Catalytic activity/Vol] 27 U/L 13-56 [facility] CO2 [Moles/Vol] 25.0 mmol/L 21.0-32.0 [facility] Globulin (S) [Mass/Vol] 3.1 g/dL 2.2-4.2 [facility] Urea nitrogen/Creatinine [Mass ratio] 27.8 mg/mg 10-20 [facility] Laboratory - Hematology and Cell countsOrdered By: [facility] Anthony on 02-19-2023 Erythrocyte distribution width (RBC) [Entitic vol] 40.4 fL 35.1-43.9 [facility] Erythrocyte distribution width (RBC) [Ratio] 12.1 % 11.6-14.6 [facility] Immature granulocytes/100 WBC (Bld) 0.300 % 0.0-0.9 [facility] Comment on above: IG% - Immature Granu locytes (promyelocytes, myelocytes and metamyelocytes) > 1% indicates that a LEFT SHIFT is Present. MCH (RBC) [Entitic mass] 30.7 pg 27.0-32.0 [facility] Nucleated RBC/100 WBC (Bld) [Ratio] 0 % 0-5 [facility] MCHC Auto (RBC) [Mass/Vol]Or dered By: Sheyla Cruz on 02-19-2023 MCHC (RBC) [Mass/Vol] 33.5 g/dL 32-36 [facility] No Panel InformationOrdered By: Sheyla Cruz on 02-19-2023 Estimated GFR (MDRD) Amer 123 mL/min >60 [facility] Comment on above: GFR Calc Estimated GFR (MDRD) Non-Af Amer 102 mL/min >60 [facility] Comment on above: Non- GFR Calc Platelets bldOrdered By: Estee Cruz on 02-19-2023 Platelets (Bld) [#/Vol] 300 10*3/uL 150-450 [facility] Serum or plasma albumin allan urement (mass/volume)Ordered By: Sheyla Cruz on 02-19-2023 Albumin [Mass/Vol] 3.9 g/dL 3.2-5.0 [facility] Serum or plasma albumin/glob ulin mass ratioOrdered By: Sheyla Cruz on 02-19-2023 Albumin/Globulin [Mass ratio] 1.3 {ratio} 0.9-2.4 [facility] Serum or plasma calcium allan urement (mass/volume)Ordered By: Sheyla Cruz on 02-19-2023 Calcium [Mass/Vol] 9.4 mg/dL 8.5-10.1 [facility] Serum or plasma creatinine m easurement (mass/volume)Ordered By: Sheyla Cruz on 02-19-2023 Creatinine [Mass/Vol] 0.65 mg/dL 0.55-1.02 [facility] Comment on above: The validity of the calculated GFR & GFRAA in patients over 70 years has not been determined. Clinical correlation is essential. Serum or plasma urea nitroge n measurement (mass/volume)Ordered By: Sheyla Cruz on 02-19-2023 Urea nitrogen [Mass/Vol] 18 mg/dL 02-19 [facility] Thin prep Papanicolaou smear with manual screeningOrdered By: Sheyla Cruz on 02-19-2023 Thin prep Papanicolaou smear with manual screening 21 U/L 15-37 [facility] Thin prep Papanicolaou smear with manual screening 4 5-15 [facility] MA MAMMOGRAM SCREENING BILAT ERAL W/TOMOon 01-24-2023 MA MAMMOGRAM SCREENING BILATERAL W/ABDIRIZAK ORIGINAL FROM: SANDI ALPINEBRAN [address] [place] [id number] PROCEDURE FOR: ERLINDA ATKINS [address] [place] [address] Home: PID#: [id number] Exam#: [id number] : 1970 Age: 52 TO: VARGAS SERRA DO [address] [address] Fax: NO FAX EXAMINATION: SCREENING DIGITAL BILATERAL [...] 01/24/2023 5:34:59 PM Ordering Provider: VARGAS SERRA Capacity Planning Engineer: ROMIE RANGEL RT(R) (M) letter sent: Normal BI-RADS 1 and 2 Mammogram BI-RADS: 2 Benign Normal [facility] ([place]) Absolute lymphocyte countOrd ered By: Dr. Cruz on 11-23-2022 Lymphocytes Auto (Unsp spec) [#/Vol] 1.95 10*3/uL 0.83-4.51 [facility] Basophil percentageOrdered B y: Dr. Cruz on 11-23-2022 Basophils/100 WBC (Bld) 1.1 % 0-1 [facility] Bilirubin [Mass/Vol] 0.40 mg/dL 0.20-1.00 [facility] Comment on above: For patients on eltr ombopag therapy, use of Dimension [place] TBIL is not recommended. Chloride [Moles/Vol] 107 mmol/L 98-107 [facility] Eosinophils/100 WBC (Bld) 3.0 % 0-5 [facility] Glucose [Mass/Vol] 125 mg/dL 74-106 [facility] Comment on above: Fasting Glucose resu lt from 100 to 125 mg/dL suggests IMPAIRED HOMEOSTASIS per A.D.A. criteria. Neutrophils (Bld) [#/Vol] 3.1 10*3/uL 2.0-7.7 [facility] Neutrophils/100 WBC (Bld) 54.1 % 47-70 [facility] Potassium [Moles/Vol] 3.5 mmol/L 3.5-5.1 [facility] Protein [Mass/Vol] 7.0 g/dL 6.4-8.2 [facility] Sodium [Moles/Vol] 137 mmol/L 136-145 [facility] WBC (Bld) [#/Vol] 5.7 10*3/uL 4.4-11.0 [facility] Blood erythrocytes count (nu mber/volume)Ordered By: Dr. Cruz on 11-23-2022 RBC (Bld) [#/Vol] 4.27 10*6/uL 4.2-5.4 [facility] Blood hemoglobin measurement (mass/volume)Ordered By: Dr. Cruz on 11-23-2022 Hemoglobin (Bld) [Mass/Vol] 13.2 g/dL 12.0-15.0 [facility] Blood lymphocytes/100 leukoc ytesOrdered By: Dr. Cruz on 11-23-2022 Lymphocytes/100 WBC (Bld) 34.3 % 19-41 [facility] Blood monocytes/100 leukocyt esOrdered By: Dr. Cruz on 11-23-2022 Monocytes/100 WBC (Bld) 7.0 % 0-10 [facility] Blood platelet mean volumeOr dered By: Dr. Cruz on 11-23-2022 Platelet mean volume (Bld) [Entitic vol] 10.9 fL 6.2-12.0 [facility] Determination of erythrocyte mean corpuscular volume (MCV)Ordered By: Dr. Cruz on 11-23-2022 MCV (RBC) [Entitic vol] 94.4 fL 81-99 [facility] Hematocrit Auto (Bld) [Volum e fraction]Ordered By: Dr. Cruz on 11-23-2022 Hematocrit (Bld) [Volume fraction] 40.3 % 37-47 [facility] Laboratory - Chemistry and C hemistry - challengeOrdered By: Dr. Cruz on 11-23-2022 ALP [Catalytic activity/Vol] 49 U/L 45-117 [facility] ALT [Catalytic activity/Vol] 30 U/L 13-56 [facility] CO2 [Moles/Vol] 29.0 mmol/L 21.0-32.0 [facility] Globulin (S) [Mass/Vol] 3.3 g/dL 2.2-4.2 [facility] Urea nitrogen/Creatinine [Mass ratio] 23.9 mg/mg 10-20 [facility] Laboratory - Hematology and Cell countsOrdered By: Dr. Cruz on 11-23-2022 Erythrocyte distribution width (RBC) [Entitic vol] 42.0 fL 35.1-43.9 [facility] Erythrocyte distribution width (RBC) [Ratio] 12.2 % 11.6-14.6 [facility] Immature granulocytes/100 WBC (Bld) 0.500 % 0.0-0.9 [facility] Comment on above: IG% - Immature Granu locytes (promyelocytes, myelocytes and metamyelocytes) > 1% indicates that a LEFT SHIFT is Present. MCH (RBC) [Entitic mass] 30.9 pg 27.0-32.0 [facility] Nucleated RBC/100 WBC (Bld) [Ratio] 0 % 0-5 [facility] MCHC Auto (RBC) [Mass/Vol]Or dered By: Dr. Cruz on 11-23-2022 MCHC (RBC) [Mass/Vol] 32.8 g/dL 32-36 [facility] No Panel InformationOrdered By: Dr. Cruz on 11-23-2022 Estimated GFR (MDRD) Amer 97 mL/min >60 [facility] Comment on above: GFR Calc Estimated GFR (MDRD) Non-Af Amer 81 mL/min >60 [facility] Comment on above: Non- GFR Calc Platelets bldOrdered By: Dr. Cruz on 11-23-2022 Platelets (Bld) [#/Vol] 319 10*3/uL 150-450 [facility] Serum or plasma albumin allan urement (mass/volume)Ordered By: Dr. Cruz on 11-23-2022 Albumin [Mass/Vol] 3.7 g/dL 3.2-5.0 [facility] Serum or plasma albumin/glob ulin mass ratioOrdered By: Dr. Cruz on 11-23-2022 Albumin/Globulin [Mass ratio] 1.1 {ratio} 0.9-2.4 [facility] Serum or plasma calcium allan urement (mass/volume)Ordered By: Dr. Cruz on 11-23-2022 Calcium [Mass/Vol] 9.1 mg/dL 8.5-10.1 [facility] Serum or plasma creatinine m easurement (mass/volume)Ordered By: Dr. Cruz on 11-23-2022 Creatinine [Mass/Vol] 0.79 mg/dL 0.55-1.02 [facility] Comment on above: The validity of the calculated GFR & GFRAA in patients over 70 years has not been determined. Clinical correlation is essential. Serum or plasma urea nitroge n measurement (mass/volume)Ordered By: Dr. Cruz on 11-23-2022 Urea nitrogen [Mass/Vol] 19 mg/dL 7-18 [facility] Thin prep Papanicolaou smear with manual screeningOrdered By: Dr. Cruz on 11-23-2022 Thin prep Papanicolaou smear with manual screening 20 U/L 15-37 [facility] Thin prep Papanicolaou smear with manual screening 1 5-15 [facility] Absolute lymphocyte countOrd ered By: Dr. Cruz on 08-27-2022 Lymphocytes Auto (Unsp spec) [#/Vol] 1.85 10*3/uL 0.83-4.51 [facility] Basophil percentageOrdered B y: Dr. Cruz on 08-27-2022 Basophils/100 WBC (Bld) 0.6 % 0-1 [facility] Bilirubin [Mass/Vol] 0.40 mg/dL 0.20-1.00 [facility] Comment on above: For patients on eltr ombopag therapy, use of Dimension [place] TBIL is not recommended. Chloride [Moles/Vol] 108 mmol/L 98-107 [facility] Eosinophils/100 WBC (Bld) 2.3 % 0-5 [facility] Glucose [Mass/Vol] 91 mg/dL 74-106 [facility] Neutrophils (Bld) [#/Vol] 3.7 10*3/uL 2.0-7.7 [facility] Neutrophils/100 WBC (Bld) 58.9 % 47-70 [facility] Potassium [Moles/Vol] 4.0 mmol/L 3.5-5.1 [facility] Protein [Mass/Vol] 7.3 g/dL 6.4-8.2 [facility] Sodium [Moles/Vol] 141 mmol/L 136-145 [facility] WBC (Bld) [#/Vol] 6.2 10*3/uL 4.4-11.0 [facility] Blood erythrocytes count (nu mber/volume)Ordered By: Dr. Cruz on 08-27-2022 RBC (Bld) [#/Vol] 4.34 10*6/uL 4.2-5.4 [facility] Blood hemoglobin measurement (mass/volume)Ordered By: Dr. Cruz on 08-27-2022 Hemoglobin (Bld) [Mass/Vol] 13.4 g/dL 12.0-15.0 [facility] Blood lymphocytes/100 leukoc ytesOrdered By: Dr. Cruz on 08-27-2022 Lymphocytes/100 WBC (Bld) 29.7 % 19-41 [facility] Blood monocytes/100 leukocyt esOrdered By: Dr. Cruz on 08-27-2022 Monocytes/100 WBC (Bld) 8.2 % 0-10 [facility] Blood platelet mean volumeOr dered By: Dr. Cruz on 08-27-2022 Platelet mean volume (Bld) [Entitic vol] 10.7 fL 6.2-12.0 [facility] Determination of erythrocyte mean corpuscular volume (MCV)Ordered By: Dr. Cruz on 08-27-2022 MCV (RBC) [Entitic vol] 92.4 fL 81-99 [facility] Hematocrit Auto (Bld) [Volum e fraction]Ordered By: Dr. Cruz on 08-27-2022 Hematocrit (Bld) [Volume fraction] 40.1 % 37-47 [facility] Laboratory - Chemistry and C hemistry - challengeOrdered By: Dr. Cruz on 08-27-2022 ALP [Catalytic activity/Vol] 49 U/L 45-117 [facility] ALT [Catalytic activity/Vol] 25 U/L 13-56 [facility] CO2 [Moles/Vol] 29.0 mmol/L 21.0-32.0 [facility] Globulin (S) [Mass/Vol] 3.5 g/dL 2.2-4.2 [facility] Urea nitrogen/Creatinine [Mass ratio] 16.4 mg/mg 10-20 [facility] Laboratory - Hematology and Cell countsOrdered By: Dr. Cruz on 08-27-2022 Erythrocyte distribution width (RBC) [Entitic vol] 39.4 fL 35.1-43.9 [facility] Erythrocyte distribution width (RBC) [Ratio] 11.7 % 11.6-14.6 [facility] Immature granulocytes/100 WBC (Bld) 0.300 % 0.0-0.9 [facility] Comment on above: IG% - Immature Granu locytes (promyelocytes, myelocytes and metamyelocytes) > 1% indicates that a LEFT SHIFT is Present. MCH (RBC) [Entitic mass] 30.9 pg 27.0-32.0 [facility] Nucleated RBC/100 WBC (Bld) [Ratio] 0 % 0-5 [facility] MCHC Auto (RBC) [Mass/Vol]Or dered By: Dr. Cruz on 08-27-2022 MCHC (RBC) [Mass/Vol] 33.4 g/dL 32-36 [facility] No Panel InformationOrdered By: Dr. Cruz on 08-27-2022 Estimated GFR (MDRD) Amer 107 mL/min >60 [facility] Comment on above: GFR Calc Estimated GFR (MDRD) Non-Af Amer 88 mL/min >60 [facility] Comment on above: Non- GFR Calc Platelets bldOrdered By: Dr. Cruz on 08-27-2022 Platelets (Bld) [#/Vol] 392 10*3/uL 150-450 [facility] Serum or plasma albumin allan urement (mass/volume)Ordered By: Dr. Cruz on 08-27-2022 Albumin [Mass/Vol] 3.8 g/dL 3.2-5.0 [facility] Serum or plasma albumin/glob ulin mass ratioOrdered By: Dr. Cruz on 08-27-2022 Albumin/Globulin [Mass ratio] 1.1 {ratio} 0.9-2.4 [facility] Serum or plasma calcium allan urement (mass/volume)Ordered By: Dr. Cruz on 08-27-2022 Calcium [Mass/Vol] 9.4 mg/dL 8.5-10.1 [facility] Serum or plasma creatinine m easurement (mass/volume)Ordered By: Dr. Cruz on 08-27-2022 Creatinine [Mass/Vol] 0.73 mg/dL 0.55-1.02 [facility] Comment on above: The validity of the calculated GFR & GFRAA in patients over 70 years has not been determined. Clinical correlation is essential. Serum or plasma urea nitroge n measurement (mass/volume)Ordered By: Dr. Cruz on 08-27-2022 Urea nitrogen [Mass/Vol] 12 mg/dL 7-18 [facility] Thin prep Papanicolaou smear with manual screeningOrdered By: Dr. Cruz on 08-27-2022 Thin prep Papanicolaou smear with manual screening 14 U/L 15-37 [facility] Thin prep Papanicolaou smear with manual screening 4 5-15 [facility] LABORATORYOrdered By: SYSTEM SYSTEM on 07-19-2022 [...] & FLU Antigen (Rapid) SARS-CoV-2 (COVID 19) [facility] Absolute lymphocyte countOrd ered By: Dr. Cruz on 05-30-2022 Lymphocytes Auto (Unsp spec) [#/Vol] 2.01 10*3/uL 0.83-4.51 [facility] Basophil percentageOrdered B y: Dr. Cruz on 05-30-2022 Basophils/100 WBC (Bld) 0.6 % 0-1 [facility] Bilirubin [Mass/Vol] 0.30 mg/dL 0.20-1.00 [facility] Comment on above: For patients on eltr ombopag therapy, use of Dimension [place] TBIL is not recommended. Chloride [Moles/Vol] 103 mmol/L 98-107 [facility] Eosinophils/100 WBC (Bld) 1.1 % 0-5 [facility] Glucose [Mass/Vol] 75 mg/dL 74-106 [facility] Neutrophils (Bld) [#/Vol] 4.0 10*3/uL 2.0-7.7 [facility] Neutrophils/100 WBC (Bld) 60.5 % 47-70 [facility] Potassium [Moles/Vol] 3.9 mmol/L 3.5-5.1 [facility] Protein [Mass/Vol] 6.9 g/dL 6.4-8.2 [facility] Sodium [Moles/Vol] 137 mmol/L 136-145 [facility] WBC (Bld) [#/Vol] 6.6 10*3/uL 4.4-11.0 [facility] Blood erythrocytes count (nu mber/volume)Ordered By: Dr. Cruz on 05-30-2022 RBC (Bld) [#/Vol] 4.14 10*6/uL 4.2-5.4 [facility] Blood hemoglobin measurement (mass/volume)Ordered By: Dr. Cruz on 05-30-2022 Hemoglobin (Bld) [Mass/Vol] 13.1 g/dL 12.0-15.0 [facility] Blood lymphocytes/100 leukoc ytesOrdered By: Dr. Cruz on 05-30-2022 Lymphocytes/100 WBC (Bld) 30.3 % 19-41 [facility] Blood monocytes/100 leukocyt esOrdered By: Dr. Cruz on 05-30-2022 Monocytes/100 WBC (Bld) 6.9 % 0-10 [facility] Blood platelet mean volumeOr dered By: Dr. Cruz on 05-30-2022 Platelet mean volume (Bld) [Entitic vol] 10.5 fL 6.2-12.0 [facility] Determination of erythrocyte mean corpuscular volume (MCV)Ordered By: Dr. Cruz on 05-30-2022 MCV (RBC) [Entitic vol] 92.3 fL 81-99 [facility] Hematocrit Auto (Bld) [Volum e fraction]Ordered By: Dr. Cruz on 05-30-2022 Hematocrit (Bld) [Volume fraction] 38.2 % 37-47 [facility] Laboratory - Chemistry and C hemistry - challengeOrdered By: Dr. Cruz on 05-30-2022 ALP [Catalytic activity/Vol] 50 U/L 45-117 [facility] ALT [Catalytic activity/Vol] 26 U/L 13-56 [facility] CO2 [Moles/Vol] 27.0 mmol/L 21.0-32.0 [facility] Globulin (S) [Mass/Vol] 3.1 g/dL 2.2-4.2 [facility] Urea nitrogen/Creatinine [Mass ratio] 23.1 mg/mg 10-20 [facility] Laboratory - Hematology and Cell countsOrdered By: Dr. Cruz on 05-30-2022 Erythrocyte distribution width (RBC) [Entitic vol] 42.1 fL 35.1-43.9 [facility] Erythrocyte distribution width (RBC) [Ratio] 12.4 % 11.6-14.6 [facility] Immature granulocytes/100 WBC (Bld) 0.600 % 0.0-0.9 [facility] Comment on above: IG% - Immature Granu locytes (promyelocytes, myelocytes and metamyelocytes) > 1% indicates that a LEFT SHIFT is Present. MCH (RBC) [Entitic mass] 31.6 pg 27.0-32.0 [facility] Nucleated RBC/100 WBC (Bld) [Ratio] 0 % 0-5 [facility] MCHC Auto (RBC) [Mass/Vol]Or dered By: Dr. Cruz on 05-30-2022 MCHC (RBC) [Mass/Vol] 34.3 g/dL 32-36 [facility] No Panel InformationOrdered By: Dr. Cruz on 05-30-2022 Estimated GFR (MDRD) Amer 106 mL/min >60 [facility] Comment on above: GFR Calc Estimated GFR (MDRD) Non-Af Amer 88 mL/min >60 [facility] Comment on above: Non- GFR Calc Platelets bldOrdered By: Dr. Cruz on 05-30-2022 Platelets (Bld) [#/Vol] 345 10*3/uL 150-450 [facility] Serum or plasma albumin allan urement (mass/volume)Ordered By: Dr. Cruz on 05-30-2022 Albumin [Mass/Vol] 3.8 g/dL 3.2-5.0 [facility] Serum or plasma albumin/glob ulin mass ratioOrdered By: Dr. Cruz on 05-30-2022 Albumin/Globulin [Mass ratio] 1.2 {ratio} 0.9-2.4 [facility] Serum or plasma calcium allan urement (mass/volume)Ordered By: Dr. Cruz on 05-30-2022 Calcium [Mass/Vol] 9.3 mg/dL 8.5-10.1 [facility] Serum or plasma creatinine m easurement (mass/volume)Ordered By: Dr. Cruz on 05-30-2022 Creatinine [Mass/Vol] 0.74 mg/dL 0.55-1.02 [facility] Comment on above: The validity of the calculated GFR & GFRAA in patients over 70 years has not been determined. Clinical correlation is essential. Serum or plasma urea nitroge n measurement (mass/volume)Ordered By: Dr. Cruz on 05-30-2022 Urea nitrogen [Mass/Vol] 17 mg/dL 7-18 [facility] Thin prep Papanicolaou smear with manual screeningOrdered By: Dr. Cruz on 05-30-2022 Thin prep Papanicolaou smear with manual screening 17 U/L 15-37 [facility] Thin prep Papanicolaou smear with manual screening 7 5-15 [facility] LABORATORYOrdered By: Mau Atkins on 05-03-2022 C. trachomatis DNA KERRY+probe Ql (Unsp spec) Negative (05/03/22 4:56 PM) Invalid Interpretation Code Negative Auto Viro/Sero SS C. trachomatis DNA KERRY+probe Ql (Unsp spec) C. trachomatis DNA not detected. Specimen is presumptive negative forC. trachomatis.A negative result does not preclude C. trachomatis infection becauseresults depend on adequate specimen collection, absence of inhibitors,and sufficient DNA to be detected. Invalid Interpretation Code See CT Interp N Auto Viro/Sero SS N. gonorrhoeae DNA KERRY+probe [...] Female (05/03/22 4:56 PM) Invalid Interpretation Code AH Auto Viro/Sero SS No Panel InformationOrdered By: Nati Sandoval on 05-03-2022 Affirm Pathogens DNA Direct Probe Namita species DNA Probe Negative Gardnerella vaginalis DNA Probe Positive Trichomonas vaginalis DNA Probe Negative [facility] Basophil percentageon 2021 Cholesterol [Mass/Vol] 155 mg/dL <200 [facility] Work Phone: Comment on above: <200 mg/dL Desirable 200-240 mg/dL Borderline >240 mg/dL High Risk Triglyceride [Mass/Vol] 48 mg/dL <199 [facility] Work Phone: Comment on above: The drugs N-Acetylcy steine and Metamizole may falsely depress this assay.Serum Triglycerides Reference Interval Normal <150 mg/dL Borderline high 150 - 199 mg/dL High 200 - 499 mg/dL Very High > or = 500 mg/dL Qualitative QuantiFERON-TB g old in tube teston 03-31-2022 M. tuberculosis tuberculin stim IFN-g Ql (Bld) Not Reportable [facility] Work Phone: Serum or plasma cholesterol in HDL measurement (mass/volume)on 03-31-2022 Cholesterol in HDL [Mass/Vol] 55 mg/dL >40 [facility] Work Phone: Comment on above: The drugs N-Acetylcy steine and Metamizole may falsely depress this assay. Reference Range HDL <40 mg/dL Low HDL Cholesterol HDL >or= 60 mg/dL High HDL Cholesterol Serum or plasma cholesterol in VLDL measurement (mass/volume)on 03-31-2022 Cholesterol in VLDL [Mass/Vol] 10 mg/dL 5-40 [facility] Work Phone: Serum or plasma low density lipoprotein (LDL) cholesterol measurement (mass/volume)on 03-31-2022 Cholesterol in LDL [Mass/Vol] 90 mg/dL 0-130 [facility] Work Phone: Thin prep Papanicolaou smear with manual screeningon 03-31-2022 Thin prep Papanicolaou smear with manual screening See comment [facility] Work Phone: Comment on above: TEST [...] interferon gamma.Chemiluminescence immunoassay methodology TESTING PERFORMED AT [facility]. ORIGINAL REPORT ON FILE IN LAB CONTAINS ADDITIONAL TEST SITE INFORMATION. Thin prep Papanicolaou smear with manual screening Not Reportable [facility] Work Phone: Absolute lymphocyte counton 03-13-2022 Lymphocytes Auto (Unsp spec) [#/Vol] 2.31 10*3/uL 0.83-4.51 [facility] Work Phone: Basophil percentageon 2021 Basophils/100 WBC (Bld) 1.3 % 0-1 [facility] Work Phone: Bilirubin [Mass/Vol] 0.40 mg/dL 0.20-1.00 [facility] Work Phone: Comment on above: For patients on eltr ombopag therapy, use of Dimension [place] TBIL is not recommended. Chloride [Moles/Vol] 107 mmol/L 98-107 [facility] Work Phone: Eosinophils/100 WBC (Bld) 1.2 % 0-5 [facility] Work Phone: Glucose [Mass/Vol] 88 mg/dL 74-106 [facility] Work Phone: Neutrophils (Bld) [#/Vol] 3.0 10*3/uL 2.0-7.7 [facility] Work Phone: Neutrophils/100 WBC (Bld) 50.9 % 47-70 [facility] Work Phone: Potassium [Moles/Vol] 4.0 mmol/L 3.5-5.1 [facility] Work Phone: Protein [Mass/Vol] 7.3 g/dL 6.4-8.2 [facility] Work Phone: Sodium [Moles/Vol] 140 mmol/L 136-145 [facility] Work Phone: WBC (Bld) [#/Vol] 6.0 10*3/uL 4.4-11.0 [facility] Work Phone: Blood erythrocytes count (nu mber/volume)on 03-13-2022 RBC (Bld) [#/Vol] 4.03 10*6/uL 4.2-5.4 [facility] Work Phone: Blood hemoglobin measurement (mass/volume)on 03-13-2022 Hemoglobin (Bld) [Mass/Vol] 12.7 g/dL 12.0-15.0 [facility] Work Phone: Blood lymphocytes/100 leukoc yteson 03-13-2022 Lymphocytes/100 WBC (Bld) 38.8 % 19-41 [facility] Work Phone: Blood monocytes/100 leukocyt eson 03-13-2022 Monocytes/100 WBC (Bld) 7.6 % 0-10 [facility] Work Phone: Blood platelet mean volumeon 03-13-2022 Platelet mean volume (Bld) [Entitic vol] 11.0 fL 6.2-12.0 [facility] Work Phone: Determination of erythrocyte mean corpuscular volume (MCV)on 03-13-2022 MCV (RBC) [Entitic vol] 89.6 fL 81-99 [facility] Work Phone: Hematocrit Auto (Bld) [Volum e fraction]on 03-13-2022 Hematocrit (Bld) [Volume fraction] 36.1 % 37-47 [facility] Work Phone: Laboratory - Chemistry and C hemistry - challengeon 03-13-2022 ALP [Catalytic activity/Vol] 51 U/L 45-117 [facility] Work Phone: ALT [Catalytic activity/Vol] 29 U/L 13-56 [facility] Work Phone: CO2 [Moles/Vol] 28.0 mmol/L 21.0-32.0 [facility] Work Phone: Globulin (S) [Mass/Vol] 3.3 g/dL 2.2-4.2 [facility] Work Phone: Urea nitrogen/Creatinine [Mass ratio] 21.5 mg/mg 10-20 [facility] Work Phone: Laboratory - Hematology and Cell countson 03-13-2022 Erythrocyte distribution width (RBC) [Entitic vol] 40.4 fL 35.1-43.9 [facility] Work Phone: [phone] Erythrocyte distribution width (RBC) [Ratio] 12.4 % 11.6-14.6 [facility] Work Phone: [phone] Immature granulocytes/100 WBC (Bld) 0.200 % 0.0-0.9 [facility] Work Phone: [phone] Comment on above: IG% - Immature Granu locytes (promyelocytes, myelocytes and metamyelocytes) > 1% indicates that a LEFT SHIFT is Present. MCH (RBC) [Entitic mass] 31.5 pg 27.0-32.0 [facility] Work Phone: [phone] Nucleated RBC/100 WBC (Bld) [Ratio] 0 % 0-5 [facility] Work Phone: [phone] MCHC Auto (RBC) [Mass/Vol]on 03-13-2022 MCHC (RBC) [Mass/Vol] 35.2 g/dL 32-36 [facility] Work Phone: No Panel Informationon 03-13 Estimated GFR (MDRD) Amer 81 mL/min >60 [facility] Work Phone: Comment on above: GFR Calc Estimated GFR (MDRD) Non-Af Amer 67 mL/min >60 [facility] Work Phone: Comment on above: Non- GFR Calc Platelets bldon 03-13-2022 Platelets (Bld) [#/Vol] 351 10*3/uL 150-450 [facility] Work Phone: [phone] Serum or plasma albumin allan urement (mass/volume)on 03-13-2022 Albumin [Mass/Vol] 4.0 g/dL 3.2-5.0 [facility] Work Phone: [phone] Serum or plasma albumin/glob ulin mass ratioon 03-13-2022 Albumin/Globulin [Mass ratio] 1.2 {ratio} 0.9-2.4 [facility] Work Phone: Serum or plasma calcium allan urement (mass/volume)on 03-13-2022 Calcium [Mass/Vol] 9.4 mg/dL 8.5-10.1 [facility] Work Phone: Serum or plasma creatinine m easurement (mass/volume)on 03-13-2022 Creatinine [Mass/Vol] 0.93 mg/dL 0.55-1.02 [facility] Work Phone: Comment on above: The validity of the calculated GFR & GFRAA in patients over 70 years has not been determined. Clinical correlation is essential. Serum or plasma urea nitroge n measurement (mass/volume)on 03-13-2022 Urea nitrogen [Mass/Vol] 20 mg/dL 7-18 [facility] Work Phone: Thin prep Papanicolaou smear with manual screeningon 03-13-2022 Thin prep Papanicolaou smear with manual screening 16 U/L 15-37 [facility] Work Phone: Thin prep Papanicolaou smear with manual screening 5 5-15 [facility] Work Phone: Absolute lymphocyte counton 12-26-2021 Lymphocytes Auto (Unsp spec) [#/Vol] 1.93 10*3/uL 0.83-4.51 [facility] Work Phone: Basophil percentageon 2021 Basophils/100 WBC (Bld) 1.0 % 0-1 [facility] Work Phone: Bilirubin [Mass/Vol] 0.30 mg/dL 0.20-1.00 [facility] Work Phone: Comment on above: For patients on eltr ombopag therapy, use of Dimension [place] TBIL is not recommended. Chloride [Moles/Vol] 107 mmol/L 98-107 [facility] Work Phone: Eosinophils/100 WBC (Bld) 2.5 % 0-5 [facility] Work Phone: Glucose [Mass/Vol] 86 mg/dL 74-106 [facility] Work Phone: Neutrophils (Bld) [#/Vol] 2.3 10*3/uL 2.0-7.7 [facility] Work Phone: Neutrophils/100 WBC (Bld) 47.6 % 47-70 [facility] Work Phone: Potassium [Moles/Vol] 3.7 mmol/L 3.5-5.1 [facility]: Protein [Mass/Vol] 7.1 g/dL 6.4-8.2 [facility]: Sodium [Moles/Vol] 141 mmol/L 136-145 [facility] Work Phone: WBC (Bld) [#/Vol] 4.8 10*3/uL 4.4-11.0 [facility] Work Phone: Blood erythrocytes count (nu mber/volume)on 12-26-2021 RBC (Bld) [#/Vol] 4.44 10*6/uL 4.2-5.4 [facility]: Blood hemoglobin measurement (mass/volume)on 12-26-2021 Hemoglobin (Bld) [Mass/Vol] 13.8 g/dL 12.0-15.0 [facility] Work Phone: Blood lymphocytes/100 leukoc yteson 12-26-2021 Lymphocytes/100 WBC (Bld) 40.2 % 19-41 [facility] Work Phone: Blood monocytes/100 leukocyt eson 12-26-2021 Monocytes/100 WBC (Bld) 8.5 % 0-10 [facility] Work Phone: Blood platelet mean volumeon 12-26-2021 Platelet mean volume (Bld) [Entitic vol] 11.2 fL 6.2-12.0 [facility] Work Phone: Determination of erythrocyte mean corpuscular volume (MCV)on 12-26-2021 MCV (RBC) [Entitic vol] 93.5 fL 81-99 [facility] Work Phone: [phone] Hematocrit Auto (Bld) [Volum e fraction]on 12-26-2021 Hematocrit (Bld) [Volume fraction] 41.5 % 37-47 [facility] Work Phone: [phone] Laboratory - Chemistry and C hemistry - challengeon 12-26-2021 ALP [Catalytic activity/Vol] 59 U/L 45-117 [facility] Work Phone: [phone] ALT [Catalytic activity/Vol] 27 U/L 13-56 [facility] Work Phone: [phone] CO2 [Moles/Vol] 29.0 mmol/L 21.0-32.0 [facility] Work Phone: [phone] Globulin (S) [Mass/Vol] 3.4 g/dL 2.2-4.2 [facility] Work Phone: [phone] Urea nitrogen/Creatinine [Mass ratio] 17.0 mg/mg 10-20 [facility] Work Phone: [phone] Laboratory - Hematology and Cell countson 12-26-2021 Erythrocyte distribution width (RBC) [Entitic vol] 40.4 fL 35.1-43.9 [facility] Work Phone: [phone] Erythrocyte distribution width (RBC) [Ratio] 11.8 % 11.6-14.6 [facility] Work Phone: [phone] Immature granulocytes/100 WBC (Bld) 0.200 % 0.0-0.9 [facility] Work Phone: [phone] Comment on above: IG% - Immature Granu locytes (promyelocytes, myelocytes and metamyelocytes) > 1% indicates that a LEFT SHIFT is Present. MCH (RBC) [Entitic mass] 31.1 pg 27.0-32.0 [facility] Work Phone: [phone] Nucleated RBC/100 WBC (Bld) [Ratio] 0 % 0-5 [facility] Work Phone: [phone] MCHC Auto (RBC) [Mass/Vol]on 12-26-2021 MCHC (RBC) [Mass/Vol] 33.3 g/dL 32-36 [facility] Work Phone: No Panel Informationon 12-26 Estimated GFR (MDRD) Amer 102 mL/min >60 [facility] Work Phone: Comment on above: GFR Calc Estimated GFR (MDRD) Non-Af Amer 85 mL/min >60 [facility] Work Phone: Comment on above: Non- GFR Calc Platelets bldon 12-26-2021 Platelets (Bld) [#/Vol] 343 10*3/uL 150-450 [facility] Work Phone: Serum or plasma albumin allan urement (mass/volume)on 12-26-2021 Albumin [Mass/Vol] 3.7 g/dL 3.2-5.0 [facility] Work Phone: [phone] Serum or plasma albumin/glob ulin mass ratioon 12-26-2021 Albumin/Globulin [Mass ratio] 1.1 {ratio} 0.9-2.4 [facility] Work Phone: Serum or plasma calcium allan urement (mass/volume)on 12-26-2021 Calcium [Mass/Vol] 9.1 mg/dL 8.5-10.1 [facility] Work Phone: Serum or plasma creatinine m easurement (mass/volume)on 12-26-2021 Creatinine [Mass/Vol] 0.76 mg/dL 0.55-1.02 [facility] Work Phone: Comment on above: The validity of the calculated GFR & GFRAA in patients over 70 years has not been determined. Clinical correlation is essential. Serum or plasma urea nitroge n measurement (mass/volume)on 12-26-2021 Urea nitrogen [Mass/Vol] 13 mg/dL 7-18 [facility] Work Phone: Thin prep Papanicolaou smear with manual screeningon 12-26-2021 Thin prep Papanicolaou smear with manual screening 16 U/L 15-37 [facility] Work Phone: Thin prep Papanicolaou smear with manual screening 5 5-15 [facility] Work Phone: LABORATORYOrdered By: Jany Montoya [...] Probe Negative Namita species DNA Probe Negative [facility] Work Phone: Culture Urine 10,000 - 50,000 cfu/ ml Multiple bacterial morphotypes present. Probable Contamination. Suggest recollection if clinically indicated. [facility] Work Phone: Absolute lymphocyte counton 09-20-2021 Lymphocytes Auto (Unsp spec) [#/Vol] 1.71 10*3/uL 0.83-4.51 [facility] Work Phone: Basophil percentageon 2021 Basophils/100 WBC (Bld) 1.0 % 0-1 [facility] Work Phone: Bilirubin [Mass/Vol] 0.30 mg/dL 0.20-1.00 [facility] Work Phone: Comment on above: For patients on eltr ombopag therapy, use of Dimension [place] TBIL is not recommended. Chloride [Moles/Vol] 105 mmol/L 98-107 [facility] Work Phone: Eosinophils/100 WBC (Bld) 8.0 % 0-5 [facility] Work Phone: Glucose [Mass/Vol] 90 mg/dL 74-106 [facility] Work Phone: Neutrophils (Bld) [#/Vol] 2.3 10*3/uL 2.0-7.7 [facility] Work Phone: Neutrophils/100 WBC (Bld) 46.6 % 47-70 [facility] Work Phone: Potassium [Moles/Vol] 3.6 mmol/L 3.5-5.1 [facility] Work Phone: Protein [Mass/Vol] 7.0 g/dL 6.4-8.2 [facility] Work Phone: Sodium [Moles/Vol] 139 mmol/L 136-145 [facility] Work Phone: WBC (Bld) [#/Vol] 4.9 10*3/uL 4.4-11.0 [facility] Work Phone: Blood erythrocytes count (nu mber/volume)on 09-20-2021 RBC (Bld) [#/Vol] 4.14 10*6/uL 4.2-5.4 [facility] Work Phone: Blood hemoglobin measurement (mass/volume)on 09-20-2021 Hemoglobin (Bld) [Mass/Vol] 13.1 g/dL 12.0-15.0 [facility] Work Phone: Blood lymphocytes/100 leukoc yteson 09-20-2021 Lymphocytes/100 WBC (Bld) 35.0 % 19-41 [facility] Work Phone: Blood monocytes/100 leukocyt eson 09-20-2021 Monocytes/100 WBC (Bld) 9.0 % 0-10 [facility] Work Phone: Blood platelet mean volumeon 09-20-2021 Platelet mean volume (Bld) [Entitic vol] 10.8 fL 6.2-12.0 [facility] Work Phone: Determination of erythrocyte mean corpuscular volume (MCV)on 09-20-2021 MCV (RBC) [Entitic vol] 94.7 fL 81-99 [facility] Work Phone: Hematocrit Auto (Bld) [Volum e fraction]on 09-20-2021 Hematocrit (Bld) [Volume fraction] 39.2 % 37-47 [facility] Work Phone: Laboratory - Chemistry and C hemistry - challengeon 09-20-2021 ALP [Catalytic activity/Vol] 53 U/L 45-117 [facility] Work Phone: ALT [Catalytic activity/Vol] 34 U/L 13-56 [facility] Work Phone: [phone] CO2 [Moles/Vol] 29.0 mmol/L 21.0-32.0 [facility] Work Phone: Globulin (S) [Mass/Vol] 3.2 g/dL 2.2-4.2 [facility] Work Phone: Urea nitrogen/Creatinine [Mass ratio] 28.4 mg/mg 10-20 [facility] Work Phone: Laboratory - Hematology and Cell countson 09-20-2021 Erythrocyte distribution width (RBC) [Entitic vol] 42.6 fL 35.1-43.9 [facility] Work Phone: [phone] Erythrocyte distribution width (RBC) [Ratio] 12.3 % 11.6-14.6 [facility] Work Phone: Immature granulocytes/100 WBC (Bld) 0.400 % 0.0-0.9 [facility] Work Phone: Comment on above: IG% - Immature Granu locytes (promyelocytes, myelocytes and metamyelocytes) > 1% indicates that a LEFT SHIFT is Present. MCH (RBC) [Entitic mass] 31.6 pg 27.0-32.0 [facility] Work Phone: Nucleated RBC/100 WBC (Bld) [Ratio] 0 % 0-5 [facility] Work Phone: [phone] MCHC Auto (RBC) [Mass/Vol]on 09-20-2021 MCHC (RBC) [Mass/Vol] 33.4 g/dL 32-36 [facility] Work Phone: [phone] No Panel Informationon 09-20 Endomysial IgA Antibody Negative Negative [facility] Work Phone: Estimated GFR (MDRD) Amer 119 mL/min >60 [facility] Work Phone: Comment on above: GFR Calc Estimated GFR (MDRD) Non-Af Amer 99 mL/min >60 [facility] Work Phone: [phone] Comment on above: Non- GFR Calc Platelets bldon 09-20-2021 Platelets (Bld) [#/Vol] 313 10*3/uL 150-450 [facility] Work Phone: Serum or plasma C reactive p rotein measurement (mass/volume)on 09-20-2021 CRP [Mass/Vol] mg/L 0.0-3.0 [facility] Work Phone: Comment on above: C-Reactive Protein ( CRP) provides useful information for thediagnosis, therapy and monitoring of inflammatory processesand associated diseases. For the evaluation of Relative Riskfor Cardiovascular Disease, a High Sensitivity CRP (HSCRP)should be ordered. Serum or plasma IgA measurem ent (mass/volume)on 09-20-2021 IgA [Mass/Vol] 141 mg/dL [facility] Work Phone: [phone] Comment on above: Performed at: [address], [place], [place] [id number] Director: Cyrus Feng PhD, Phone: [phone] Serum or plasma albumin allan urement (mass/volume)on 09-20-2021 Albumin [Mass/Vol] 3.8 g/dL 3.2-5.0 [facility] Work Phone: Serum or plasma albumin/glob ulin mass ratioon 09-20-2021 Albumin/Globulin [Mass ratio] 1.2 {ratio} 0.9-2.4 [facility] Work Phone: Serum or plasma calcium allan urement (mass/volume)on 09-20-2021 Calcium [Mass/Vol] 9.2 mg/dL 8.5-10.1 [facility] Work Phone: Serum or plasma creatinine m easurement (mass/volume)on 09-20-2021 Creatinine [Mass/Vol] 0.67 mg/dL 0.55-1.02 [facility] Work Phone: Comment on above: The validity of the calculated GFR & GFRAA in patients over 70 years has not been determined. Clinical correlation is essential. Serum or plasma urea nitroge n measurement (mass/volume)on 09-20-2021 Urea nitrogen [Mass/Vol] 19 mg/dL 7-18 [facility] Work Phone: Serum tissue transglutaminas e IgA antibody assay (units/volume)on 09-20-2021 tTG IgA Qn (S) <2 U/mL [facility] Work Phone: Comment on above: Negative 0 - 3 Weak Positive 4 - 10 Positive >10 Tissue Transglutaminase (tTG) has been identified as the endomysial antigen. Studies have demonstr- ated that endomysial IgA antibodies have over 99% specificity for gluten sensitive enteropathy. Thin prep Papanicolaou smear with manual screeningon 09-20-2021 Thin prep Papanicolaou smear with manual screening 16 U/L 15-37 [facility] Work Phone: [phone] Thin prep Papanicolaou smear with manual screening 5 5-15 [facility] Work Phone: LABORATORYOrdered By: Rashmi Andrea [...] S Clinical Summary: HMSPatient IDon 06-21-2020 OOP [facility] Work Phone: Surgical Pathologyon 017 Surgical Pathology [id number] [facility] PATHOLOGY AND LABORATORY MEDICINE [address] [place] [id number] FINAL SURGICAL PATHOLOGY REPORT NAME: ERLINDA ATKINS .O.B.: 1970 46 Y F BILLING NO.: [id number]: [id number] PROCEDURE 02/07/2017 DATE:SURGEON: Elizabeth CHOI M.D. RECEIVED 02/07/2017 DATE:ATTENDING: Elizabeth CHOI M.D. REPORT DATE: 02/20/2017 COPIES TO: DIAGNOSIS:RIGHT FINGERNAIL LESION, EXCISION - PORTION OF NAIL TISSUE WITHHEMORRHAGE.COMMENT: Evidence of melanoma is not identified. A GMS stain wasperformed, and is negative for fungal organisms.SMT/SMT S Obdulio HANCOCKD. CLINICAL INFORMATION: Lesion right fingernailSPECIMEN: LESION, BIOPSY, [...] theirperformance characteristics determined by the clinical laboratories [facility]. They have not been cleared by [...] false negativity on decalcified specimens.Professional Performing Location: [address] [address]. DEPARTMENT OF PATHOLOGY AND LABORATORY MEDICINE [place], [place] [address] [facility] Comment on above: Performed By: #### S UR ####Performing Lab is in report Influenza virus A and B and SARS-CoV-2 (COVID-19) Ag panel - Upper respiratory specim SARS-CoV-2 & FLU Antigen (Rapid) SARS-CoV-2 (COVID 19) [facility] Work Phone: Vital Signs Date Time Vital Sign Value Performing Clinician Facility 01-04-2025 09:54-0400 Body temperature 97.6 [degF] Dr. Vargas Serra DO Work Phone: [facility] 01-04-2025 09:54-0400 Diastolic blood pressure 88 mm[Hg] Dr. Vargas Serra DO Work Phone: [facility] 01-04-2025 09:54-0400 Heart rate 53 /min Dr. Vargas Serra DO Work Phone: [facility] 01-04-2025 09:54-0400 Respiratory rate 16 /min Dr. Vargas Serra DO Work Phone: [facility] 01-04-2025 09:54-0400 SaO2% (BldA) [Mass fraction] 99 % Dr. Vargas Serra DO Work Phone: [facility] 01-04-2025 09:54-0400 Systolic blood pressure 141 mm[Hg] Dr. Vargas Serra DO Work Phone: [facility] 01-04-2025 08:24-0400 Body height 172.[address] Vargas Serra DO Work Phone: [facility] 01-04-2025 08:24-0400 Body mass index (BMI) [Ratio] 30.8 kg/m2 Dr. Vargas Serra DO Work Phone: [facility] 01-04-2025 08:24-0400 Body weight [address] Vargas Serra DO Work Phone: [facility] 10-22-2024 09:10-0400 Body height 172.[address] Vargas Serra DO Work Phone: [facility] 10-22-2024 09:10-0400 Body mass index (BMI) [Ratio] 31.9 kg/m2 Dr. Vargas Serra DO Work Phone: [facility] 10-22-2024 09:10-0400 Body temperature 98.2 [degF] Dr. Vargas Serra DO Work Phone: [facility] 10-22-2024 09:10-0400 Body weight 95.[address] Vargas Serra DO Work Phone: [facility] 10-22-2024 09:10-0400 Diastolic blood pressure 96 mm[Hg] Dr. Vargas Serra DO Work Phone: [facility] 10-22-2024 09:10-0400 Heart rate 94 /min Dr. Vargas Serra DO Work Phone: [facility] 10-22-2024 09:10-0400 Respiratory rate 15 /min Dr. Vargas Serra DO Work Phone: [facility] 10-22-2024 09:10-0400 SaO2% (BldA) [Mass fraction] 98 % Dr. Vargas Serra DO Work Phone: [facility] 10-22-2024 09:10-0400 Systolic blood pressure 179 mm[Hg] Dr. Vargas Serra DO Work Phone: [facility] 09-09-2024 15:44-0500 Body temperature 98 [degF] Dr. Vargas Serra DO Work Phone: [facility] 09-09-2024 15:44-0500 Body weight 94.[address] Vargas Serra DO Work Phone: [facility] 09-09-2024 15:44-0500 Diastolic blood pressure 80 mm[Hg] Dr. Vargas Serra DO Work Phone: [facility] 09-09-2024 15:44-0500 Heart rate 87 /min Dr. Vargas Serra DO Work Phone: [facility] 09-09-2024 15:44-0500 Respiratory rate 16 /min Dr. Vargas Serra DO Work Phone: [facility] 09-09-2024 15:44-0500 SaO2% (BldA) [Mass fraction] 99 % Dr. Vargas Serra DO Work Phone: [facility] 09-09-2024 15:44-0500 Systolic blood pressure 128 mm[Hg] Dr. Vargas Serra DO Work Phone: [facility] 06-16-2024 15:21-0500 Body mass index (BMI) [Ratio] 31.48 kg/m2 Dago Athy PA-C Work Phone: [facility] 06-16-2024 15:21-0500 Body temperature 97.59 [degF] Dago Athy PA-C Work Phone: [facility] 06-16-2024 15:21-0500 Body weight 95.3 kg Dago Athy PA-C Work Phone: [facility] 06-16-2024 15:21-0500 Diastolic blood pressure 86 mm[Hg] Dago Athy PA-C Work Phone: [facility] 06-16-2024 15:21-0500 Heart rate 84 /min Dago Athy PA-C Work Phone: [facility] 06-16-2024 15:21-0500 Respiratory rate 18 /min Dago Athy PA-C Work Phone: [facility] 06-16-2024 15:21-0500 SaO2% (BldA) [Mass fraction] 99 % Dago Athy PA-C Work Phone: [facility] 06-16-2024 15:21-0500 Systolic blood pressure 131 mm[Hg] Dago Athy PA-C Work Phone: [facility] 10-18-2023 17:57-0400 Body temperature 98.9 [degF] Dr. Vargas Serra Work Phone: [facility] 10-18-2023 17:57-0400 Diastolic blood pressure 82 mm[Hg] Dr. Vargas Serra Work Phone: [facility] 10-18-2023 17:57-0400 Heart rate 85 /min Dr. Vargas Serra Work Phone: [facility] 10-18-2023 17:57-0400 Respiratory rate 16 /min Dr. Vargas Serra Work Phone: [facility] 10-18-2023 17:57-0400 SaO2% (BldA) [Mass fraction] 98 % Dr. Vargas Serra Work Phone: [facility] 10-18-2023 17:57-0400 Systolic blood pressure 151 mm[Hg] Dr. Vargas Serra Work Phone: [facility] 10-18-2023 12:49-0400 Body height 172.[address] Vargas Serra Work Phone: [facility] 10-18-2023 12:49-0400 Body mass index (BMI) [Ratio] 31.6 kg/m2 Dr. Vargas Serra Work Phone: [facility] 10-18-2023 12:49-0400 Body weight 94.[address] Vargas Serra Work Phone: [facility] 10-15-2023 15:02-0400 Diastolic blood pressure 92 mm[Hg] Dr. Vargas Serra Work Phone: [facility] 10-15-2023 15:02-0400 Heart rate 77 /min Dr. Vargas Serra Work Phone: [facility] 10-15-2023 15:02-0400 Respiratory rate 17 /min Dr. Vargas Serra Work Phone: [facility] 10-15-2023 15:02-0400 SaO2% (BldA) [Mass fraction] 96 % Dr. Vargas Serra Work Phone: [facility] 10-15-2023 15:02-0400 Systolic blood pressure 146 mm[Hg] Dr. Vargas Serra Work Phone: [facility] 10-01-2023 12:33-0500 Body height 174 cm Indira Demond [employer] Work Phone: [facility] 10-01-2023 12:33-0500 Body weight 94.7 kg Indira Demond [employer] Work Phone: [facility] 10-01-2023 12:33-0500 Diastolic blood pressure 80 mm[Hg] Indira Demond ENGRAVER AUTOMATIC.LUMBER STICKER Work Phone: [facility] 10-01-2023 12:33-0500 Heart rate 77 /min Indira Demond ENGRAVER AUTOMATIC.LUMBER STICKER Work Phone: [facility] 10-01-2023 12:33-0500 SaO2% (BldA) [Mass fraction] 96 % Indira Demond ENGRAVER AUTOMATIC.LUMBER STICKER Work Phone: [facility] 10-01-2023 12:33-0500 Systolic blood pressure 139 mm[Hg] Indira Demond ENGRAVER AUTOMATIC.LUMBER STICKER Work Phone: [facility] 06-24-2023 10:25-0500 Body temperature 97.5 [degF] Dr. Vargas Serra Work Phone: [facility] 06-24-2023 10:25-0500 Diastolic blood pressure 63 mm[Hg] Dr. Vargas Serra Work Phone: [facility] 06-24-2023 10:25-0500 Heart rate 71 /min Dr. Vargas Serra Work Phone: [facility] 06-24-2023 10:25-0500 Respiratory rate 16 /min Dr. Vargas Serra Work Phone: [facility] 06-24-2023 10:25-0500 SaO2% (BldA) [Mass fraction] 100 % Dr. Vargas Serra Work Phone: [facility] 06-24-2023 10:25-0500 Systolic blood pressure 117 mm[Hg] Dr. Vargas Serra Work Phone: [facility] 06-24-2023 08:52-0500 Body height 172.[address] Vargas Serra Work Phone: [facility] 06-24-2023 08:52-0500 Body mass index (BMI) [Ratio] 29.5 kg/m2 Dr. Vargas Serra Work Phone: [facility] 06-24-2023 08:52-0500 Body weight [address] Vargas Serra Work Phone: [facility] 05-28-2023 11:25-0400 Body temperature 97.1 [degF] Dr. Vargas Serra Work Phone: [facility] 05-28-2023 11:25-0400 Diastolic blood pressure 69 mm[Hg] Dr. Vargas Serra Work Phone: [facility] 05-28-2023 11:25-0400 Heart rate 56 /min Dr. Vargas Serra Work Phone: [facility] 05-28-2023 11:25-0400 Respiratory rate 16 /min Dr. Vargas Serra Work Phone: [facility] 05-28-2023 11:25-0400 SaO2% (BldA) [Mass fraction] 100 % Dr. Vargas Serra Work Phone: [facility] 05-28-2023 11:25-0400 Systolic blood pressure 106 mm[Hg] Dr. Vragas Serra Work Phone: [facility] 05-28-2023 09:18-0400 Body height 172.[address] Vargas Serra Work Phone: [facility] 05-28-2023 09:18-0400 Body mass index (BMI) [Ratio] 28.8 kg/m2 Dr. Vargas Serra Work Phone: [facility] 05-28-2023 09:18-0400 Body weight 85.[address] Vargas Serra Work Phone: [facility] 04-27-2023 18:25-0400 Body temperature 98.7 [degF] Dr. Vargas Serra Work Phone: [facility] 04-27-2023 18:25-0400 Diastolic blood pressure 82 mm[Hg] Dr. Vargas Serra Work Phone: [facility] 04-27-2023 18:25-0400 Heart rate 73 /min Dr. Vargas Serra Work Phone: [facility] 04-27-2023 18:25-0400 Respiratory rate 18 /min Dr. Vargas Serra Work Phone: [facility] 04-27-2023 18:25-0400 SaO2% (BldA) [Mass fraction] 100 % Dr. Vargas Serra Work Phone: [facility] 04-27-2023 18:25-0400 Systolic blood pressure 131 mm[Hg] Dr. Vargas Serra Work Phone: [facility] 04-24-2023 14:21-0400 Body height 172.[address] Vargas Serra Work Phone: [facility] 04-24-2023 14:21-0400 Body weight 86.[address] Vargas Serra Work Phone: [facility] 04-24-2023 09:58-0400 Inhaled oxygen flow rate 3 L/min Dr. Vargas Serra Work Phone: [facility] 04-23-2023 23:09-0400 Body mass index (BMI) [Ratio] 29 kg/m2 Dr. Vargas Serra Work Phone: [facility] 04-23-2023 22:35-0400 Body temperature 98.1 [degF] Dr. Vargas Serra Work Phone: [facility] 04-23-2023 22:35-0400 Diastolic blood pressure 88 mm[Hg] Dr. Vargas Serra Work Phone: [facility] 04-23-2023 22:35-0400 Heart rate 87 /min Dr. Vargas Serra Work Phone: [facility] 04-23-2023 22:35-0400 Respiratory rate 18 /min Dr. Vargas Serra Work Phone: [facility] 04-23-2023 22:35-0400 SaO2% (BldA) [Mass fraction] 97 % Dr. Vargas Serra Work Phone: [facility] 04-23-2023 22:35-0400 Systolic blood pressure 166 mm[Hg] Dr. Vargas Serra Work Phone: [facility] 04-23-2023 18:15-0400 Body height 172.[address] Vargas Serra Work Phone: [facility] 04-23-2023 18:15-0400 Body mass index (BMI) [Ratio] 29 kg/m2 Dr. Vargas Serra Work Phone: [facility] 04-23-2023 18:15-0400 Body weight 86.[address] Vargas Serra Work Phone: [facility] 04-09-2023 16:43-0400 Body temperature 98.01 [degF] Amberly Deleon APRN.LUMBER STICKER Work Phone: [facility] 04-09-2023 16:43-0400 Body weight 87.45 kg Amberly Deleon APRN.LUMBER STICKER Work Phone: [facility] 04-09-2023 16:43-0400 Diastolic blood pressure 84 mm[Hg] Amberly Praisler-Wood ENGRAVER AUTOMATIC.LUMBER STICKER Work Phone: [facility] 04-09-2023 16:43-0400 Heart rate 72 /min Amberly Praisler-Wood ENGRAVER AUTOMATIC.LUMBER STICKER Work Phone: [facility] 04-09-2023 16:43-0400 Respiratory rate 18 /min Amberly Praisler-Wood ENGRAVER AUTOMATIC.LUMBER STICKER Work Phone: [facility] 04-09-2023 16:43-0400 SaO2% (BldA) [Mass fraction] 98 % Amberly Praisler-Wood ENGRAVER AUTOMATIC.LUMBER STICKER Work Phone: [facility] 04-09-2023 16:43-0400 Systolic blood pressure 132 mm[Hg] Amberly Praisler-Wood ENGRAVER AUTOMATIC.LUMBER STICKER Work Phone: [facility] 03-29-2023 12:54-0400 Body temperature 98.49 [degF] Molly Foster ENGRAVER AUTOMATIC.LUMBER STICKER Work Phone: [facility] 03-29-2023 12:54-0400 Body weight 87.09 kg Molly Foster APRN.LUMBER STICKER Work Phone: [facility] 03-29-2023 12:54-0400 Diastolic blood pressure 82 mm[Hg] Molly Foster ENGRAVER AUTOMATIC.LUMBER STICKER Work Phone: [facility] 03-29-2023 12:54-0400 Heart rate 62 /min Molly Foster ENGRAVER AUTOMATIC.LUMBER STICKER Work Phone: [facility] 03-29-2023 12:54-0400 Respiratory rate 18 /min Molly Foster ENGRAVER AUTOMATIC.LUMBER STICKER Work Phone: [facility] 03-29-2023 12:54-0400 SaO2% (BldA) [Mass fraction] 97 % Molly Foster ENGRAVER AUTOMATIC.LUMBER STICKER Work Phone: [facility] 03-29-2023 12:54-0400 Systolic blood pressure 136 mm[Hg] Molly Foster ENGRAVER AUTOMATIC.LUMBER STICKER Work Phone: [facility] 06-22-2022 05:18-0500 Heart rate 100 /min [facility] 06-22-2022 05:18-0500 Respiratory rate 18 /min [facility] 06-22-2022 05:18-0500 SaO2% (BldA) [Mass fraction] 98 % [facility] 06-22-2022 04:05-0500 Body height 172.72 cm [facility] 06-22-2022 04:05-0500 Body mass index (BMI) [Ratio] 30.4 kg/m2 [facility] 06-22-2022 04:05-0500 Body temperature 98.7 [degF] [facility] 06-22-2022 04:05-0500 Body weight 90.7 kg [facility] 06-22-2022 04:05-0500 Diastolic blood pressure 79 mm[Hg] [facility] 06-22-2022 04:05-0500 Systolic blood pressure 154 mm[Hg] [facility] 05-24-2022 11:53-0400 Body temperature 97.39 [degF] Dago Athy PA-C Work Phone: [facility] 05-24-2022 11:53-0400 Body weight 88.36 kg Dago Athy PA-C Work Phone: [facility] 05-24-2022 11:53-0400 Diastolic blood pressure 74 mm[Hg] Dago Athy PA-C Work Phone: [facility] 05-24-2022 11:53-0400 Heart rate 68 /min Dago Athy PA-C Work Phone: [facility] 05-24-2022 11:53-0400 Respiratory rate 18 /min Dago Athy PA-C Work Phone: [facility] 05-24-2022 11:53-0400 SaO2% (BldA) [Mass fraction] 98 % Dago Athy PA-C Work Phone: [facility] 05-24-2022 11:53-0400 Systolic blood pressure 130 mm[Hg] Dago Athy PA-C Work Phone: [facility] 05-07-2022 18:32-0400 Body temperature 97.3 [degF] Lizette Phong ENGRAVER AUTOMATIC.LUMBER STICKER Work Phone: [facility] 05-07-2022 18:32-0400 Body weight 89.63 kg Lizette Phong ENGRAVER AUTOMATIC.LUMBER STICKER Work Phone: [facility] 05-07-2022 18:32-0400 Diastolic blood pressure 88 mm[Hg] Lizette Phong ENGRAVER AUTOMATIC.LUMBER STICKER Work Phone: [facility] 05-07-2022 18:32-0400 Heart rate 72 /min Lizette Phong ENGRAVER AUTOMATIC.LUMBER STICKER Work Phone: [facility] 05-07-2022 18:32-0400 Respiratory rate 18 /min Lizette Phong ENGRAVER AUTOMATIC.LUMBER STICKER Work Phone: [facility] 05-07-2022 18:32-0400 SaO2% (BldA) [Mass fraction] 98 % Lizette Phong ENGRAVER AUTOMATIC.LUMBER STICKER Work Phone: [facility] 05-07-2022 18:32-0400 Systolic blood pressure 120 mm[Hg] Lizette Phong ENGRAVER AUTOMATIC.LUMBER STICKER Work Phone: [facility] NEGATED: Highlighted [id number] 12:54-0500 BMI (Body Mass Index) 28.38 kg/m2 Milagros Quinones [facility] Work Phone: NEGATED: Highlighted [id number] 12:54-0500 Body weight 84.37 kg Milagros Quinones HOST/HOSTESS GROUND [facility] Work Phone: NEGATED: Highlighted [id number] 12:54-0500 Body weight 85 kg Milagros Stacie HOST/HOSTESS GROUND [facility] Work Phone: NEGATED: Highlighted [id number] 12:54-0500 BP Diastolic 0 mm[Hg] Milagros Quinones HOST/HOSTESS GROUND [facility] Work Phone: NEGATED: Highlighted [id number] 12:54-0500 BP Systolic 0 mm[Hg] Milagrosmiles Quinones [facility] Work Phone: NEGATED: Highlighted [id number] 12:54-0500 [facility] Work Phone: NEGATED: Highlighted [id number] 12:54-0500 Height 173 cm Milagrosmiles Quinones [facility] Work Phone: NEGATED: Highlighted [id number] 12:54-0500 Pulse (Heart Rate) 0 /min [facility] Work Phone: Encounters Encounter Date Encounter Type Care Provider Facility Start: 07-19-2025 ambulatory Heron Piña y:[facility] Start: 05-31-2025 End: 05-31-2025 ambulatory VARGAS MARYSE DO Facility:[facility] Start: 05-31-2025 End: 05-31-2025 Patient encounter procedure VARGAS MARYSE DO [facility] Start: 05-13-2025 End: 05-13-2025 ambulatory Vargas Cardozay Facility:[facility] Start: 05-09-2025 End: 05-09-2025 ambulatory VARGAS MARYSE DO [facility] Start: 05-09-2025 End: 05-09-2025 Patient encounter procedure VARGAS MARYSE DO [facility] Start: 03-30-2025 End: 03-30-2025 ambulatory VARGAS MARYSE DO Facility:[facility] Start: 03-30-2025 End: 03-30-2025 Patient encounter procedure VARGAS MARYSE DO [facility] Start: 03-23-2025 Encounter for genera l adult medical examination without abnormal findings Vargas Serra [facility] Start: 03-18-2025 End: 03-18-[address] Vargas Serra DO Work Phone: -Laboratory Start: 03-18-2025 End: 03-18-[address] Vargas Serra DO -Laboratory Work Phone: Start: 03-18-2025 End: 03-18-2025 ambulatory Vargas Serra Facility:[facility] Start: 02-19-2025 End: 02-19-[address] Vargas Serra DO Work Phone: -Laboratory Start: 02-19-2025 End: 02-19-[address] Sheyla Cruz MD -Laboratory Work Phone: Start: 02-19-2025 End: 02-19-2025 ambulatory Vargas Serra Facility:[facility] Start: 01-20-2025 End: 01-20-2025 ambulatory VARGAS SERRA DO Facility:[facility] Start: 01-20-2025 End: 01-20-2025 Patient encounter procedure VARGAS SERRA DO [facility] Start: 01-04-2025 End: 01-04-2025 Admission to same day surgery center Dr. Heron Xiao MD -[facility] Start: 01-04-2025 End: 01-04-[address] Vargas Serra DO Work Phone: [facility] Work Phone: Start: 12-24-2024 End: 12-28-2024 ambulatory RONAK BULL APRN-LUMBER STICKER Facility:[facility] Start: 12-24-2024 End: 12-28-2024 Outreach Lab RONAK BULL APRN-LUMBER STICKER [facility] Start: 11-17-2024 End: 11-17-2024 ambulatory VARGAS SERRA DO Facility:[facility] Start: 10-22-2024 End: 10-22-2024 Emergency department patient visit Dr. Vargas Serra DO Work Phone: -Emergency Department Work Phone: Start: 10-21-2024 End: 10-21-[address] Vargas Serra DO Work Phone: [facility] Work Phone: Start: 10-21-2024 End: 10-21-[address] Sheyla Cruz MD -Laboratory, [place] Work Phone: Start: 10-21-2024 End: 10-21-2024 ambulatory Vargas Serra Facility:[facility] Start: 10-09-2024 ambulatory Jacqueline Mike Facility:[facility] Start: 09-09-2024 End: 09-09-2024 Patient encounter procedure Jacqueline KAPLAN [facility] Work Phone: Start: 09-09-2024 End: 09-09-2024 ambulatory Vargas Serra Facility:[facility] Start: 07-31-2024 End: 07-31-[address] Sheyla Cruz MD -Laboratory, [place] Work Phone: Start: 07-31-2024 End: 07-31-2024 ambulatory Vargas Serra Facility:[facility] Start: 07-24-2024 ambulatory Vargas Serra Facility :[facility] Start: 06-16-2024 End: 06-16-2024 ambulatory VARGAS SERRA Facility:[facility] Start: 06-16-2024 End: 06-16-2024 Patient encounter procedure Dago Mays PA-C Work Phone: [facility] Comment on above: Viral URI with cough (Primary Dx) Start: 05-27-2024 End: 05-27-2024 Patient encounter procedure VARGAS SERRA DO [facility] Start: 04-18-2024 End: 04-18-2024 Patient encounter procedure VARGAS SERRA DO [facility] Start: 11-14-2023 End: 11-14-[address] Vargas Serra Work Phone: [facility] Work Phone: Start: 11-14-2023 End: 11-14-[address] Vargas Serra Work Phone: [facility]-Laboratory, [place] Work Phone: Start: 11-07-2023 End: 11-07-[address] Vargas Serra Work Phone: [facility] Work Phone: Start: 10-24-2023 End: 10-25-2023 ambulatory VARGAS SERRA DO Facility:[facility] Start: 10-21-2023 Telephone encounter Indira acosta ENGRAVER AUTOMATIC.LUMBER STICKER Work Phone: Neurology Comment on above: Call after 3:30 Start: 10-18-2023 End: 10-18-2023 Emergency department patient visit Dr. Vargas Serra Work Phone: [facility]-Emergency Department Work Phone: Start: 10-15-2023 End: 10-15-[address] Vargas Serra Work Phone: [facility] Work Phone: Start: 10-15-2023 End: 10-15-[address] Vargas Serra Work Phone: [facility] Work Phone: Start: 10-02-2023 End: 10-02-2023 ambulatory INDIRA LAGOS Facility:[facility] Start: 10-02-2023 End: 10-02-2023 Subsequent hospital visit by physician [facility] Work Phone: Radiology Comment on above: Chronic right-sided low back pain with right-sided sciatica [M54.41, G89.29] Start: 10-01-2023 End: 10-01-2023 Patient encounter procedure Indira Lagos ENGRAVER AUTOMATIC.LUMBER STICKER Work Phone: [facility] Comment on above: Chronic right-sided low back pain with right-sided sciatica (Primary Dx) Start: 10-01-2023 End: 10-01-2023 ambulatory INDIRA LAGOS Facility:[facility] Start: 08-30-2023 Chart abstracting Unk Pcp (Hist) Marty busch Start: 08-22-2023 End: 08-22-[address] Vargas Serra Work Phone: [facility] Work Phone: Start: 08-22-2023 End: 08-22-[address] Vargas Serra Work Phone: [facility] Work Phone: Start: 08-07-2023 End: 08-08-2023 ambulatory RONAK BULL ENGRAVER AUTOMATIC-LUMBER STICKER Facility:[facility] Start: 08-07-2023 End: 08-07-2023 Patient encounter procedure RONAK BULL ENGRAVER AUTOMATIC-LUMBER STICKER [facility] Start: 07-03-2023 End: 07-04-2023 ambulatory VARGAS SERRA DO Facility:[facility] Start: 07-03-2023 End: 07-03-2023 Patient encounter procedure VARGAS SERRA DO [facility] Start: 06-24-2023 End: 06-24-2023 Admission to same day surgery center Dr. Vargas Serra Work Phone: [facility]-Surgical Day Care Start: 06-24-2023 End: 06-24-[address] Vargas Serra Work Phone: [facility] Work Phone: Start: 06-05-2023 End: 06-05-[address] Vargas Serra Work Phone: [facility] Work Phone: Start: 06-05-2023 End: 06-05-[address] Vargas Serra Work Phone: [facility] Work Phone: Start: 05-28-2023 Non-patient / Non-visit Dr. Gaston Serra Work Phone: [facility] Start: 05-28-2023 End: 05-28-2023 Admission to same day surgery center Dr. Vargas Serra Work Phone: [facility]-Endoscopy Work Phone: Start: 05-28-2023 End: 05-28-[address] Vargas Serra Work Phone: [facility] Work Phone: Start: 05-15-2023 End: 05-15-[address] Vargas Serra Work Phone: [facility] Work Phone: Start: 05-15-2023 End: 05-15-[address] Vargas Serra Work Phone: [facility] Work Phone: Start: 05-04-2023 End: 05-05-2023 ambulatory VARGAS SERRA DO Facility:[facility] Start: 05-03-2023 End: 05-03-[address] Vargas Serra Work Phone: [facility] Work Phone: Start: 04-27-2023 Non-patient / Non-visit Dr. Gaston Serra Work Phone: [facility] Start: 04-26-2023 Non-patient / Non-visit Dr. Gaston Serra Work Phone: [facility] Start: 04-25-2023 Non-patient / Non-visit Dr. Gaston Serra Work Phone: [facility] Start: 04-24-2023 Non-patient / Non-visit Dr. Gaston Serra Work Phone: [facility] Start: 04-23-2023 Non-patient / Non-visit Dr. Gaston Serra Work Phone: [facility] Start: 04-23-2023 End: 04-27-2023 Evaluation and management of inpatient Dr. Vargas Serra Work Phone: [facility]-Medical Surgical 3 Work Phone: Start: 04-09-2023 End: 04-09-2023 Patient encounter procedure Amberly Deleon APRN.LUMBER STICKER Work Phone: [facility] Comment on above: Poison sita (Primary Dx) Start: 03-29-2023 End: 03-29-2023 Patient encounter procedure Molly Foster APRN.LUMBER STICKER Work Phone: [facility] Comment on above: Allergic contact andreina matitis due to plants, except food (Primary Dx) Start: 02-19-2023 End: 02-19-[address] Vargas Serra Work Phone: [facility] Work Phone: Start: 01-23-2023 End: 01-24-2023 ambulatory VARGAS SERRA DO Facility:[facility] Start: 01-23-2023 End: 01-23-2023 Patient encounter procedure VARGAS SERRA DO [facility] Start: 11-23-2022 End: 11-23-2022 ambulatory [facility] Work Phone: Start: 11-23-2022 End: 11-23-2022 Patient encounter procedure [facility] Start: 10-09-2022 End: 10-09-2022 ambulatory [facility] Work Phone: Start: 10-09-2022 End: 10-09-2022 Discharged Recurring [facility]-Physical Therapy Start: 08-27-2022 End: 08-27-2022 ambulatory [facility] Work Phone: Start: 08-27-2022 End: 08-27-2022 Patient encounter procedure [facility] Start: 07-19-2022 End: 07-19-2022 Patient encounter procedure VARGAS Marycruz SERRA DO [facility] Start: 06-29-2022 End: 06-29-2022 ambulatory [facility] Work Phone: Start: 06-29-2022 End: 06-29-2022 Patient encounter procedure [facility]-Radiology, [facility] Start: 06-22-2022 End: 06-22-2022 Emergency department patient visit [facility]-Emergency Department Start: 06-20-2022 End: 06-20-2022 ambulatory [facility] Work Phone: Start: 06-20-2022 End: 06-20-2022 Discharged Recurring [facility]-Physical Therapy Start: 06-20-2022 Registered Recurring [facility] Therapy Start: 05-30-2022 End: 05-30-2022 Patient encounter procedure [facility] Start: 05-24-2022 End: 05-24-2022 Patient encounter procedure Dago Mays PA-C Work Phone: [facility] Comment on above: Sinobronchitis (Prim lexy Dx) Start: 05-08-2022 Telephone encounter Dago leroy PA-C Work Phone: [facility] Comment on above: Results Start: 05-07-2022 End: 05-07-2022 Patient encounter procedure Lizette Darling ENGRAVER AUTOMATIC.LUMBER STICKER Work Phone: [facility] Comment on above: URI with cough and c ongestion (Primary Dx) Start: 05-03-2022 End: 05-07-2022 Outreach Lab RONAK BULL ENGRAVER AUTOMATIC-LUMBER STICKER [facility] Start: 04-23-2022 End: 04-23-2022 ambulatory [facility] Work Phone: Start: 04-23-2022 End: 04-23-2022 [facility] Start: 03-31-2022 End: 03-31-2022 ambulatory [facility] Work Phone: Start: 03-31-2022 End: 03-31-2022 Patient encounter procedure [facility]-Laboratory Start: 03-13-2022 End: 03-13-2022 Patient encounter procedure [facility] Start: 12-26-2021 End: 12-26-2021 [facility] Start: 11-01-2021 End: 11-05-2021 Outreach Lab RONAK BULL ENGRAVER AUTOMATIC-LUMBER STICKER [facility] Start: 09-20-2021 End: 09-20-2021 [facility] Start: 09-12-2021 End: 09-12-2021 Patient encounter procedure VARGAS SERRA DO [facility] Start: 06-21-2020 End: 06-21-2020 Patient encounter procedure Teto Adhikari MD Work Phone: [facility] Work Phone: Start: 06-21-2020 End: 06-21-2020 Pt evaluation Teto Adhikari MD Work Phone: [facility] Work Phone: Start: 10-11-2017 Physical examination [facility] Start: 02-07-2017 Ambulatory [facility] Procedures Date Procedure Procedure Detail Performing Clinician Start: 01-04-2025 Local anesthetic sac ral epidural block Dr. Vargas Serra DO Work Phone: Start: 01-04-2025 Injection of spinal epidural space Dr. Vargas [...] Work Phone: Comment on above: Performed at: [place] [id number] Director: Cyrus Feng PhD, Phone: [phone] Start: 10-22-2024 Hepatitis C antibody measurement Dr. [...] HCV Quant by PCR testing - HCVPCR #[id number] Non Reactive: < 0.8 Equivocal: >/= 0.8 [...] lumbosac ral minimum 4 views Indira Lagos APRN.CNP Work Phone: Start: 06-24-[address] [...] Unk (Hist) Start: 02-02-2014 Mammography Lizette Darling ENGRAVER AUTOMATIC.LUMBER STICKER Work Phone: Start: 11-30-2008 Colonoscopy Lizette Darling ENGRAVER AUTOMATIC.LUMBER STICKER Work Phone: Decompression of med carmelita nerve [...] DTaP,Tdap,Td Vaccine (2 - Td or Tdap) [facility] Start: 01-04-2025 Anes dx/ther nerve block/injection prone pos ANESTH N BLOCK/INJ PRONE [facility] Start: 01-04-2025 Njx dx/ther sbst int rlmnr lmbr/sac w/img gdn NJX INTERLAMINAR LMBR/SAC [facility] Start: 01-04-2025 Injection of spinal epidural space [facility] Start: 01-04-2025 Injection using fluoroscopic guidance [facility] [facility] Start: 01-04-2025 Patient discharge [facility] Start: 10-22-2024 Hepatitis B core ant ibody measurement, IgM type [facility] Start: 10-22-2024 Hepatitis C antibody measurement [facility] Start: 10-22-2024 End: 10-22-2024 [facility] Start: 10-18-2023 [facility] Start: 08-05-2023 Depression Assessment Depression Ass essment [facility] Start: 06-24-2023 Anes dx/ther nerve block/injection prone pos ANESTH N BLOCK/INJ PRONE [facility] Start: 06-24-2023 Njx anes&/strd w/img tfrml edrl lmbr/sac 1 lvl NJX AA&/STRD TFRM EPI L/S 1 [facility] Start: 06-24-2023 Njx anes&/strd w/img tfrml edrl lmbr/sac ea lv NJX AA&/STRD TFRM EPI L/S EA [facility] Start: 06-24-2023 Injection of spinal epidural space [facility] Start: 06-24-2023 X-ray of lumbar spin e, two or three views Lumbar Spine 2 or 3 Views [facility] Start: 06-24-2023 Patient discharge [facility] Start: 05-28-2023 Colonoscopy w/biopsy single/multiple COLONOSCOPY AND BIOPSY [facility] Start: 05-28-2023 Patient discharge [facility] Start: 04-27-2023 Patient discharge [facility] Start: 04-24-2023 Catheterization of vein [facility] Start: 04-24-2023 Vital signs measurements [facility] Start: 04-24-2023 [facility] Start: 04-24-2023 Blood chemistry [facility] Start: 04-24-2023 [facility] Start: 04-23-2023 Application of intermittent pneumatic compression device [facility] Start: 04-23-2023 Following clinical pathway protocol [facility] Start: 04-23-2023 Incentive spirometry [facility] Start: 04-23-2023 End: 04-24-2023 [facility] Start: 04-23-2023 Admission procedure [facility] Start: 04-05-2023 Influenza vaccination INFLUENZA (#1) [facility] Start: 08-05-2022 [facility] Start: 06-22-2022 [facility] Start: 05-07-2022 End: 05-21-2022 SARS-CoV-2 (COVID-19) RNA [Presence] in Respiratory specimen by KERRY with probe detection [facility] Work Phone: Comment on above: Expected: 05/07/2022 , Expires: 05/21/2022 Start: 04-05-2022 Influenza vaccination INFLUENZA (#1) [facility] Start: 08-05-2021 DEPRESSION ASSESSMENT DEPRESSION ASS ESSMENT [facility] Start: 07-14-2020 End: 07-14-2020 Appointment Appointment [facility] Work Phone: Start: 07-07-2020 End: 07-07-2020 Appointment Appointment [facility] Work Phone: Start: 06-21-2020 End: 06-21-2020 Appointment [facility] Work Phone: Start: 06-21-2020 End: 06-21-2020 Mri spinal canal cervical w/o contrast matrl MRI cervical without contrast [facility] Work Phone: Start: 02-24-2020 Lipid panel Lipid Screening [facility] Start: 02-24-2020 LIPID SCREEN LIPID SCREEN [facility] Start: 02-16-2019 PAP TESTING PAP TESTING [facility] Start: 02-16-2019 Screening for malign ant neoplasm of cervix Pap Testing [facility] Start: 02-23-2018 DIABETES SCREEN DIABETES SCREEN [facility] Start: 02-23-2018 Diabetes Screening Diabetes Screenin g [facility] Start: 2015 COLOGUARD (FIT-DNA) COLOGUARD (FIT-D NA) [facility] Start: 2015 Colonoscopy COLONOSCOPY [facility] Start: 2015 COLORECTAL CANCER SCREENING COLORECTAL CANCER SCREENING [facility] Start: [address] COLONOGRAPHY [facility] Start: 2015 FECAL OCCULT BLOOD FECAL OCCULT BLOO D [facility] Start: 2015 Screening for malign ant neoplasm of colon [facility] Start: 2015 SIGMOIDOSCOPY SIGMOIDOSCOPY [facility] Start: 02-16-2015 Screening for malign ant neoplasm of cervix Cervical Cancer Screening [facility] Start: 02-02-2015 Mammography MAMMOGRAM [facility] Start: 02-02-2015 Screening for malign ant neoplasm of breast Mammogram Screening [facility] Start: 2000 HPV TESTING HPV TESTING [facility] Start: 2000 Screening for malign ant neoplasm of cervix HPV Testing [facility] Start: 1989 Hepatitis B Vaccine (1 of 3 - 19+ 3-dose series) Hepatitis B Vaccine (1 of 3 - 19+ 3-dose series) [facility] Start: 1989 SHINGRIX VACCINE (1 of 2) GRACE GRIX VACCINE (1 of 2) [facility] Start: 1989 Urine microalbumin profile [facility] Start: 1988 ANNUAL PCP TEAM BUSINESS ANALYTICS MANAGER IVELISSE DISEASE VISIT ANNUAL PCP TEAM CHRONIC DISEASE VISIT [facility] Start: 1988 Anxiety Screening Anxiety Screening [facility] Start: 1988 Depression Screening Depression Scre ening [facility] Start: 1988 HEPATITIS C SCREENING HEPATITIS C [facility] Start: 1988 Hepatitis C screening Hepatitis C [facility] Start: 1988 HIV SCREENING HIV SCREENING [facility] Start: 1988 HIV screening HIV Screening [facility] Start: 1976 PNEUMOCOCCAL (1 - PCV) PNEUMOCOCCAL (1 - PCV) [facility] Start: 1976 Pneumococcal vaccination Pneum ococcal Vaccine (1 of 2 - PCV) [facility] Start: 1975 COVID-19 VACCINE (#1) COVID-19 VACCI NE (#1) [facility] Start: 1970 COVID-19 VACCINE (#1) COVID-19 VACCI NE (#1) [facility] Start: 1970 HEPATITIS B (1 of 3 - 3-dose series) HEPATITIS B (1 of 3 - 3-dose series) [facility] Start: 1970 Hepatitis B Vaccine (1 of 3 - 3-dose series) Hepatitis B Vaccine (1 of 3 - 3-dose series) [facility] Anion gap measurement [facility] Bilirubin measuremen t, urine [facility] Bilirubin measuremen t, urine [facility] BUN/Creatinine ratio [facility] Calcium [Mass/volume ] in Serum or Plasma [facility] Carbon dioxide, tota l [Moles/volume] in Serum or Plasma [facility] Chloride [Moles/volu me] in Serum or Plasma [facility] Colonoscopy [facility] Creatinine [Moles/vo lume] in Serum or Plasma [facility] Glucose [Mass/volume ] in Serum or Plasma [facility] Hematocrit [Volume Fraction] of Blood [facility] Hemoglobin [Mass/vol ume] in Blood [facility] Hemoglobin [Presence ] in Urine [facility] Hemoglobin [Presence ] in Urine [facility] Hepatitis A virus Ig M Ab [Presence] in Serum [facility] Hepatitis B virus perez rface Ab [Presence] in Serum [facility] Hepatitis B virus perez rface Ag [Presence] in Serum [facility] HIV 1 RNA [#/volume] (viral load) in Unspecified specimen by KERRY with probe detection [facility] HIV 1 RNA [Log #/vol ume] (viral load) in Unspecified specimen by KERRY with probe detection [facility] In-vitro immunologic test [facility] Work Phone: Leukocytes [#/volume ] in Blood [facility] Magnesium [Mass/volu me] in Serum or Plasma [facility] Mean corpuscular hemoglobin concentration determination [facility] Mean corpuscular hemoglobin determination [facility] Measurement of keton es in urine using dipstick [facility] Measurement of keton es in urine using dipstick [facility] Measurement of renal function [facility] Microscopic urinalysis [facility] Mycobacterium tuberculosis tuberculin stimulated gamma interferon [Presence] in Blood [facility] Work Phone: Neutrophil count [facility] Neutrophil percent differential count [facility] Patient Education [facility] Work Phone: Patient referral [facility] Work Phone: pH of Urine [facility] pH of Urine [facility] Platelets [#/volume] in Blood [facility] Potassium [Moles/vol ume] in Serum or Plasma [facility] Red blood cell count [facility] Red cell distributio n width determination [facility] Sodium [Moles/volume ] in Serum or Plasma [facility] Specific gravity of Urine [facility] Specific gravity of Urine [facility] Urea nitrogen [Mass/volume] in Serum or Plasma [facility] Urinalysis, blood, qualitative [facility] Urine dipstick for glucose [facility] Urine dipstick for glucose [facility] Urine dipstick for leukocyte esterase [facility] Urine dipstick for leukocyte esterase [facility] Urine dipstick for nitrite [facility] Urine dipstick for nitrite [facility] Urine dipstick for protein [facility] Urine dipstick for protein [facility] Urine examination [facility] Urine examination [facility] Urine microscopy: epithelial cells [facility] Urine Microscopy: wh ite cells [facility] Urobilinogen [Presen ce] in Urine [facility] Urobilinogen [Presen ce] in Urine [facility] US.doppler Lower extremity vessels [facility] End: 10-30-2024 XR Lumbar spine Views W flexion and W extension XR LUMBAR MOTION 4V AP/LAT/ FLEX/EXT Radiology Routine Chronic right-sided low back pain with right-sided sciatica 1 Occurrences starting 10/01/2023 until 10/30/2024 [facility] Work Phone: Comment on above: 1 Occurrences starti ng 10/01/2023 until 10/30/2024 [facility] Immunizations Immunization Date Immunization Notes Care Provider Lily guzman 05-18-2025 influenza, injectabl e, quadrivalent, contains preservative; Translations: [Fluarix PF Prefilled Syringe ] VARGAS SERRA DO [facility] 10-22-2024 tetanus toxoid, redu bulmaro diphtheria toxoid, and acellular pertussis vaccine, adsorbed Dr. Vargas Serra DO Work Phone: [facility] 09-10-2024 zoster vaccine recombinant; Translations: [Shingrix] [employer]AK [employer] [facility] 06-30-2024 zoster vaccine recombinant; Translations: [Shingrix] [employer] [facility] 05-14-2024 tetanus toxoid, redu bulmaro diphtheria toxoid, and acellular pertussis vaccine, adsorbed; Translations: [Boostrix (Tdap)] VARGAS SERRA DO [facility] 05-14-2024 influenza, injectabl e, quadrivalent, contains preservative; Translations: [Fluarix PF Prefilled Syringe ] VARGAS SERRA DO [facility] 05-08-2023 influenza, injectabl e, quadrivalent, contains preservative; Translations: [Fluarix PF Quadrivalent ] VARGAS SERRA DO [facility] 06-04-2022 influenza, injectabl e, quadrivalent, contains preservative; Translations: [Fluarix PF Quadrivalent ] VARGAS SERRA DO [facility] 06-30-2021 influenza, injectabl e, quadrivalent, contains preservative; Translations: [Fluarix PF Quadrivalent ] VARGAS SERRA DO [facility] 06-08-2020 influenza, injectabl e, quadrivalent, preservative free; Translations: [Fluarix PF Quadrivalent ] VARGAS SERRA DO [facility] 06-03-2017 Influenza virus vaccine [facility] 05-06-2017 influenza virus vaccine, unspecified formulation VARGAS SERRA DO [facility] 05-05-2015 influenza virus vaccine, unspecified formulation VARGAS SERRA DO [facility] 05-05-2014 influenza virus vaccine, unspecified formulation VARGAS SERRA DO [facility] Payers Date Payer Category Payer Unknown [id number] 2024 Self-pay [id number] 2022 Private Health Insurance [facility] [id number] 2020 Unknown 2012 Unknown [id number] 1970 Unknown [id number] 2.16.8 [id number] 1970 Unknown [id number] .16.8 40.1.119739.3.579.2.627 1970 Unknown [id number] .16.8 40.1.792084.3.579.2.627 1970 Unknown [id number] .16.8 40.1.540752.3.579.2.627 1970 Unknown [id number] 2.16.8 40.1.572997.3.579.2.627 1970 Unknown [id number] 2.16. 840.1.493915.3.579.2.627 1970 Unknown [id number] 2.16. 840.1.586764.3.579.2.627 1970 Unknown [id number] 2.16. 840.1.597467.3.579.2.627 1970 Unknown [id number] 2.16. 840.1.619275.3.579.2.627 1970 Unknown [id number] 2.16.8 40.1.674674.3.579.2.627 1970 Unknown [id number] 2.16.8 40.1.859742.3.579.2.627 Unknown [id number] 2.16.8 40.1.970668.3.579.2.462 Unknown [id number] 2.16.8 40.1.950254.3.579.2.462 Unknown [id number] 2.16.8 40.1.328642.3.579.2.462 Unknown [id number] 2.16.8 40.1.878138.3.579.2.462 Unknown [id number] 2.16.8 40.1.738318.3.579.2.462 Unknown [id number] 2.16.8 40.1.258667.3.579.2.462 Unknown [id number] 2.16.8 40.1.434393.3.579.2.462 Unknown [id number] 2.16.8 40.1.180019.3.579.2.462 Unknown [id number] 2.16.8 40.1.625013.3.579.2.462 Unknown [id number] 2.16.8 40.1.987042.3.579.2.462 Unknown [id number] 2.16.8 40.1.941529.3.579.2.462 Unknown [id number] 2.16.8 40.1.488108.3.579.2.462 Social History Date Type Detail Facility Start: 03-13-2021 End: 11-07-2023 Assertion Unknown if ever smoked [facility] Work Phone: Start: 01-10-2021 End: 10-14-2023 Ex-smoker (finding) [facility] Comment on above: recently started baylee k up smoking occasionally d/t stress. Start: 1970 Sex Assigned At Female A [facility] Start: 07-04-2019 [facility] Start: 12-05-2017 Cigarettes [facility] Start: 05-07-2022 Tobacco smoking stat us PRIS Never smoked tobacco [facility] Start: 05-07-2022 Tobacco use and exposure Smokeless tobacco non-user [facility] Start: 05-07-2022 End: 06-16-2024 Alcohol intake Current non-drinker of alcohol (finding) [facility] Start: 1970 Sex Assigned At Not on file [facility] Start: 03-29-2023 End: 10-01-2023 History of Social function [facility] Start: 03-29-2023 End: 10-01-2023 Tobacco use panel [facility] National Score (1-100), lower number is lower risk Not on file [facility] Start: 09-30-2019 End: 10-22-2024 Sex Female (finding) [facility] Sexual Orientation [facility] Sexual Sexually active: Yes. Current partners: 1. [facility] Comment on above: no change in partner in past 12 months NEGATED: Highlighted row [facility] Medical Equipment Procedure Code Equipment Code [...] a d arjun;Chair;Bathroom Privilege;Active Range of Motion [facility] Work Phone: Mental Status Date Assessment Result Facility 01-04-2025 Cognitive function Voice/Name [facility] Work Phone: 10-22-2024 Cognitive function Level Of Cons ciousness Awake;Alert;Appropriate;Follow s Commands [facility] Work Phone: 06-24-2023 Cognitive function Voice/Name [facility] Work Phone: 05-28-2023 Cognitive function Voice/Name [facility] Work Phone: 04-26-2023 Cognitive function Voice/Name [facility] Work Phone: 06-22-2022 Cognitive function Level Of Cons ciousness Awake;Alert;Appropriate [facility] Work Phone: Clinical Notes 03-17-2012 to 01-04-2025 Radiology Note Date & Type Note Facility 01-04-2025 Consult note [facility] 01-04-2025 Procedure note [facility] 01-04-2025 Consult note [facility] 12-24-2024 Evaluation + Plan note Diagnostic Tests PendingCandida/Trichomonas Vaginitis PCR Screen 12/24/24Bacterial Vaginosis PCR Screen 12/24/24 Future Scheduled TestsMA Mammo Screening Bilateral w/ Abdirizak 12/24/24 [facility] 10-22-2024 Discharge summary [facility] 09-09-2024 Evaluation note Diagnosis Onset Date Resolution Symptomatic varicose veins acute September 09 3:23pm [facility] Work Phone: 1(383) 840-493611-12-2024 NoteHNO ID: [id number] Author: DAGO MAYS PA-C Service: ? Author Type: Physician Banquet Pilot Type: Progress Notes Filed: 06/16/2024 16:35 Note Text: This note was created using [employer]erML[employer]. Subjective Erlinda Zapata is a 54 year [...] of symptoms - strep test negative [facility]11-12-2024 History of Present illness Narrative* Dago Mays PA-C - 06/16/2024 4:33 PM EST This note was created using [employer]. Subjective Erlinda Zapata is a 54 year [...] negative Dago Mays PA-C [facility] Miscellaneous Notes* Telephone Encounter - Demond, Indira Banerjee APRN.CNP - 10/22/2023 4:21 PM EDT XR with no spondylolisthesis, no instability. MRI images were previously reviewed with no neural compression. No role for surgery Recommend [facility]. Order placed. Call to pt. She has ongoing pain sx. Reviewed above. She will consider [facility] in the future. Indira Lagos CNP * Telephone Encounter - Monica Patel - 10/21/2023 4:46 PM EDT Emily the advocate at [facility] for Erlinda is calling. She is asking the TALENT ACQUISITION PROJECT MANAGER to Please call Erlinda after 3:30 with the results. [facility] History of Present illness Narrative* Lizett [...] PATIENT PRESENTS WITH AN IMPLANTABLE OR ATTACHED RAISIN SEPARATOR OPERATOR: No RADIOLOGY DEPARTMENT: General X-ray: Exam(s) Completed: Spine X-Ray(s): Lumbar AP / LAT / L5-S1 / FLEX-EXT L5-S1 not done PERIPHERAL IV DATA: Not applicable SIGNED BY: RT Elisa(R) October 02, 2023 11:41 AM documented in this encounterM[facility]02-28-2024 NoteHNO ID: [id number] Author: LIZETT MYLES RT(R) Service: ? Author [...] PATIENT PRESENTS WITH AN IMPLANTABLE OR ATTACHED RAISIN SEPARATOR OPERATOR: No RADIOLOGY DEPARTMENT: General X-ray: Exam(s) Completed: Spine X-Ray(s): Lumbar AP / LAT / L5-S1 / FLEX-EXT L5-S1 not done PERIPHERAL IV DATA: Not applicable SIGNED BY: RT Elisa(Nayla) October 02, 2023 11:41 [facility]02-27-2024 NoteHNO ID: [id number] Author: INDIRA LAGOS APRN.GUMARO Service: ? Author [...] fibromyalgia Hx RA Employment status: works at [employer] PREVIOUS CONSERVATIVE TREATMENTS: Physical therapy: Fall 2022 [...] total of 45 mi (more content not included)...[facility]02-27-2024 History of Present illness Narrative* Indira Lagos APRN.LUMBER STICKER - 10/01/2023 1:49 PM EST Images from [...] fibromyalgia Hx RA Employment status: works at [employer] PREVIOUS CONSERVATIVE TREATMENTS: Physical therapy: Fall 2022 [...] which included preparing to see the patient, [id number] patient care, completing clinical documentation, obtaining and/or reviewing separately obtained history, performing a medically appropriate examination, counseling and educating the pat ient/family/caregiver, ordering medications, tests, or procedures, and independently interpreting results (not separately reported). SIGNATURE: Indira Lagos APRN.CNP PATIENT NAME: Erlinda Atkins DATE: October 01, 2023 TIME: 1:50 PM PAGER: documented in this encounterM[facility]02-09-2024 NoteHNO ID: [id number] Author: HALEY HEBERT PA-C Service: ? Author Type: Physician Banquet Pilot Type: Progress Notes Filed: 09/13/2023 12:16 Note [...] they can be reviewed during the appt [facility] History of Present illness Narrative* Haley [...] Atkins Are you being referred by a [place] for Spine Health Provider or Pain Management Provider at [facility]? No If answer is YES please schedule [...] the facility where the MRI/CT/myelogram was completed: [place] [address] [place] [address] MRI/CT/myelogram viewable in Epic: No If not, please provide [phone] to fax in imaging reports for review. Also, please inform patient to hand carry imaging disc to appointment. XR (spine) within 12 months: Yes If YES, please ask for the name/address of the facility where the XR was completed: [facility] [address], [place] [address] Dr. Kirby's patients: Have you had previous [...] injections and/or physical therapy was completed Injection: [facility] [address] [place] [address] [facility] [address] [place] [address] PT: [facility] [address] [place] [address] Have you tried any other kinds of [...] where the surgery was completed: Additional Comments [phone] documented in [facility]01-26-2024 NoteHNO ID: [id number] Author: ?, ?, ? Service: ? Author Type: ? Type: Progress Notes Filed: 09/13/2023 12:16 Note Text: Patient name: Erlinda Atkins Are you being referred by a [facility] for [facility] Health Provider or Pain Management Provider at [facility]? No If answer is YES please schedule [...] the facility where the MRI/CT/myelogram was completed: [address] [place] [address] MRI/CT/myelogram viewable in Epic: No If not, please provide [phone] to fax in imaging reports for review. Also, please inform patient to hand carry imaging disc to appointment. XR (spine) within 12 months: Yes If YES,? please ask for the name/address of the facility where the XR was completed: [facility] [address], [place] [address] Dr. Kirby's patients: Have you had previous [...] injections and/or physical therapy was completed Injection: [address] [place] [address] [facility] [address] [place], [place] [address]y, [place] [address] PT: [facility] [address] [facility], [place] [address] Have you tried any other kinds of [...] where the surgery was completed: Additional Comments [phone]10-24-2023 Procedure [facility]10-24-2023 Procedure [facility]09-19-2023 Discharge summary Author Jass Valderrama [facility] April 23, 2023 10:32pm Note Date/Time April 23, 2023 7:22pm [facility] Medical Records Department [address] [place] [address] Emergency Department Summary 04/23/23 MR#: [id number] Acct: [id number] Name: ERLINDA ATKINS TOAN Rep #:[id number] : 1970 53 From: Jass Valderrama MD [...] however no vomiting. Patient has no appetite. [facility] <ZINA Lan - Last Filed: 04/23/23 19:48> [facility] Medical History Arthritis Arthritis, rheumatoid Fibromyalgia Hypothyroidism Home Medications levothyroxine 112 mcg tablet 125 mcg PO DAILY 06/25/13 [History Last Taken 12/04/17 08:00] omeprazole 20 mg capsule,delayed release 20 mg PO PRN PRN Indigestion 11/27/17 [History Last Taken Unknown] ibuprofen 600 mg tablet 600 mg PO Q6H PRN PRN Mild-Mod Pain (1-10) #30 tabs 12/04/17 [Rx Last Taken Unknown] [...] alcohol intake frequency: holidays/special occasions only ROS <ZINA Lan - Last Filed: 04/23/23 19:48> ROS ED [...] 71.5 H Lymph % (Auto) 15.9 L [place] % (Auto) 9.5 Eos % (Auto) 2.5 [...] 21:21 EDT Reading Location ID and State: [address] [place] [address] Tel , Service support , ADDENDUM: 04/23/232146 [...] Valderrama MD - Last Filed: 04/23/23 22:32> [facility] Narrative Medical decision making narrative: Dr. Valderrama: [...] 71.5 H Lymph % (Auto) 15.9 L Geneva % (Auto) 9.5 Eos % (Auto) 2.5 [...] 21:21 EDT Reading Location ID and State: [address] [place] [address] Tel , Service support , ADDENDUM: 04/23/232146 IMPRESSION: Acute sigmoid diverticulitis and probable abscess as above. No free air. N.B. : The above Results were Read Back by Sonido Cazares MD to Jass Valderrama MD, and understanding confirmed on 04/23/2023 21:40:43 (ET). Electronically Signed: Sonido Cazares MD at 21:21 EDT Reading Location ID and State: [address] [place] [address] Tel , Service support , Management Discussion w/another healthcare provider: Gyroscopic Instrument Tester (Dr. Roberts, general surgery) Discharge Plan Triage [...] PO Q6H PRN PRN (Reason: Mild-Mod Pain (1-12/12)) Qty: 30 0RF Xeljanz XR 11 mg tablet extended release 24 hr 11 mg PO Q24H liothyronine 5 mcg tablet 5 mcg PO DAILY Patient Comments: TAKE 1 TABLET BY MOUTH DAILY take with levothoroxine Primary Care Provider: Vargas Serra Referrals: Vargas Serra, [Primary Care Provider] - What to do if you have Problems For any increased pain, shortness of breath, bleeding, nausea or vomiting, chestpain, or any unexpected problems, contact your Primary Care Provider. Call [facility] ([phone]) or report to the closest Emergency Room. Call 911 if necessary. 04/23/232231 <Electronically signed by Jass Valderrama MD> Cosigner Signature (if applicable): CC: Dr. Vargas Serra, ~ Signed [facility] Work Phone: 1(398) 881-876509-05-2023 Instructions* Patient Instructions* Amberly Deleon APRN.LUMBER STICKER - 04/09/2023 5:46 PM EDT ASSESSMENT/PLAN: 1. Poison sita - ICD9: 692.6, ICD10: L23.7 - Oral Steriod tx -prednisone taper completed. - Topical steriod tx with Rx for steriod cream/ointment- kenalog - Anti itch therapy of Calomine lotion, Oatmeal baths, and Oral Benydryl recommended prn - discussed skin care of rash - follow up if symptoms persist or worsen. E Efraín [employer]ENDING OFFICER Student TEACHING PROVIDER (Physician/PA/ENGRAVER AUTOMATIC) NOTE OF PERSONAL INVOLVEMENT IN CARE: I have personally seen and examined the patient and performed the medical decision-making components. I have reviewed the Advanced Practice Registered Nurse (ENGRAVER AUTOMATIC) Student's documentation and verified the findings in the note as written. Any additions or changes are noted in bold/italics. Signature: Amberly Deleon Date: 04/09/2023 Time: 5:46 PM [facility] History of Present illness Narrative* Amberly Deleon, AMADOR.LUMBER STICKER - 04/09/2023 5:03 PM EDT Images from the original note were not included. This note was created using Picurio. Subjective Erlinda Atkins is a 53 year old female. Patient presents with pruritic vesicular rash scattered on left leg and left arm for approximately two weeks after doing yard work. Patient was seen in [facility] on 03/29 and treated with a [...] symptoms persist or worsen. E Efraín [employer]END[employer] OFFICER Student TEACHING PROVIDER (Physician/PA/ENGRAVER AUTOMATIC) NOTE OF PERSONAL INVOLVEMENT IN CARE: I have personally seen and examined the patient and performed the medical decision-making components. I have reviewed the Advanced Practice Registered Nurse (ENGRAVER AUTOMATIC) Student's documentation and verified the findings in the note as written. Any additions or changes are noted in bold/italics. Signature: Amberly Deleon Date: 04/09/2023 Time: 5:46 PM documented in this [facility]08-25-[facility]23 History of Present illness Narrative* Molly Foster APRN.LUMBER STICKER - 03/29/2023 1:03 PM EDT Images from the original note were not included. Subjective Patient came in with complaints of itchy rash. Patient says it started about a week ago. Patient says is not getting any better. Patient says its on left arm and abdomen. Patient denies any other symptoms. The history is provided by the patient. No per diem interpreter was used. Review of Systems Constitutional: [...] okay with this care plan. Molly Foster APRN.LUMBER STICKER documented in this [facility]03-22-2023 Discharge summary Author Hang Hernandez [facility] October 24, 2022 2:30pm Note Date/Time October 24, 2022 2:3 0pm [facility] Physical Therapy [facility] [address] [place] [address]. [address] [place] [address] / REHABILITATION SERVICES DISCHARGE SUMMARY MR#: [id number] Acct: [id number] Name: ERLINDA ATKINS Rep #: [id number] : 1970 52 From: Hang Hernandez DPT, OCS, CSCS Referring DrJuarez: ZINA Little Prebish Status: REG RCR Insurance: [...] by the physician. Thank you! Hang Hernandez, LILIA, OCS, CSCS Balance/Gait/Functional tests - Balance/Special Test Scores Oswestry Low Back Score: 27 <Electronically signed by Hang Hernandez DPT, OCS, CSCS> 10/24/22 1430 CC: ZINA Baca; Dr. Vargas Serra, DO ~ EBG Signed [facility] Work Phone: [phone]) 884-451310-20-2022 History of Present illness Narrative* Dago Mays [...] in for evaluation. She has been using [id number] cough and cold medications. No feverrecently. No [...] of fluids, rest, and analgesia prn. Dago R Athy, PA-C documented in this encounterM[facility]10-04-2022 Miscellaneous Notes* Telephone Encounter - Dulce Chin LPN - 05/08/2022 1:59 PM EDT Spoke with pt and information listed below given. Pt verbalizes understanding. Dulce Chin LPN * Telephone Encounter - Dago Mays PA-C - 05/08/2022 8:10 AM EDT Let patient know their covid19 test was negative. documented in this [facility]10-03-2022 Instructions* Patient Instructions* Lizette Darling APRN.CNP - 05/07/2022 6:47 PM EDT covid test ordered You will be notified in 24 hours, results available on [facility] Home isolation until covid results are back [...] breath, inability to swallow. documented in this encounterM[facility]10-03-2022 History of Present illness Narrative* Lizette Darling APRN.GUMARO - 05/07/2022 6:39 PM EDT Subjective The history is provided by the patient. No per diem interpreter was used. HPI Erlinda Atkins is a [...] have confirmed and edited as necessary, the [facility] Review of Systems Constitutional: Positive for malaise/fatigue. [...] in 24-48 hours with results, available on [email or web address] - ok to leave message Diagnosis and treatment plan were discussed and questions were answered to the patient's satisfaction. Pt acknowledged understanding of concepts and follow up plan. Specific signs and symptoms that would indicate the need for higher level of care were discussed indetail warranting prompt ER evaluation. Lizette Darling APRN.GUMARO documented in this encounterM[facility]03-30-2022 Evaluation + Plan note Future Scheduled Tests Radiology* MA Mammo Screening Bilateral w/ Abdirizak 11/01/21 [facility] 08-13-2012 History of Past illness Narrative* [...] of this encounter (statuses as of 05/08/2022) [facility] Narrative* Problem [...] of this encounter (statuses as of 05/08/2022) [facility] illness Narrative* Problem [...] of this encounter (statuses as of 05/24/2022) [facility] illness Narrative* Problem [...] of this encounter (statuses as of 03/29/2023) [facility] illness Narrative* Problem [...] of this encounter (statuses as of 04/10/2023) [facility] Narrative* Problem [...] of this encounter (statuses as of 09/13/2023) [facility] Narrative* Problem [...] of this encounter (statuses as of 10/02/2023) [facility] Narrative* Problem [...] of this encounter (statuses as of 10/03/2023) [facility] Narrative* Problem [...] of this encounter (statuses as of 10/23/2023) [facility] HospitalConsult note Author Suman May [facility] Note Date/Time January 04, 2025 8:41a [facility] Medical Records Department [address] [place] [address] Pre-Anesthesia Evaluation 01/04/25 0836 MR#: [id number] Acct: [id number] Name: ERLINDA ZAPATA TOAN Rep #:[id number] : 1970 54 From: Suman May MD PCP: Dr. Vargas Serra, DO Status:REG SDC Y Race: C Location: [place] [address] ASA Classification* ASA Classification ASA Classification: 2 [...] CAUDAL BLOCK Anesthesia History Anesthesia History - womens health nurse practitioner: Anesthesia History - womens health nurse practitioner Hx Hospitalization No 12/30/24 08:54 Any Problems [...] take am of surgery PONV PONV - womens health nurse practitioner: PONV - womens health nurse practitioner Female Yes 12/30/24 08:54 HX of Motion [...] 01/04/25 08:24 Respiratory Assessment Respiratory Assessment - womens health nurse practitioner: Respiratory Tract Infection Hx - womens health nurse practitioner Hx Respiratory Tract Infection No 12/30/24 08:54 STOP Sleep Apnea STOP Sleep Apnea - womens health nurse practitioner: STOP Sleep Apnea - womens health nurse practitioner Hx Hypertension No 12/30/24 08:54 Hx Sleep [...] Tobacco Use History Tobacco Use History - womens health nurse practitioner: Tobacco Use History - womens health nurse practitioner Tobacco Use Smoking Status Former smoker 12/30/24 08:54 Hx Tobacco Use No 12/30/24 08:54 Years Smoking Packs Smoked per Day Smoking Cessation Date was Yes - quit smoking within 15 12/30/24 08:54 within the last 15 years years Hx Smoking Cessation Date 08/05/22 12/30/24 08:54 Hx Smoking Cessation No 12/30/24 08:54 Counseling Hematologic Medial History Hematologic Hx - womens health nurse practitioner: Hematologic Medical Hx - vest front presser Hx of Blood Transfusion No 12/30/24 08:54 [...] confused, unrespo /Reproduction History /Reproductive History - womens health nurse practitioner: /Reproductive Hx- womens health nurse practitioner Hx Now Gestational Age (in weeks): EDC: [...] PRN Mild-M od 12/04/17 Unknown Rx Pain (1-12/12) #30 tabs liothyronine 5 mcg tablet 5 mcg PO DAILY 04/23/23 10/08/28 History folic acid 1 mg tablet 1 [...] MD Cosigner Signature: Date CC: ~ Signed [facility] Work Phone: Consult note Author [facility] Note Date/Time January 04, 2025 9:34a m [facility] Medical Records Department [address] [place] [address] Anesthesia Postop Eval I 01/04/2531 MR#: [id number] Acct: [id number] Name: ERLINDA ZAPATA Rep #:[id number] : 1970 54 From: Sage Michelle PCP: Dr. Vargas Serra, DO Status:REG SDC Y Race: C Location: [place] [address] Anesthesia: Postop Eval I Current Vital Signs [...] Anesthesia document: Postop Eval 1 completed: Yes 01/04/2534 <Electronically signed by Sage Michelle > Date _ Sage Hernandez Signature: Date CC: ~ Signed [facility] Work Phone: Discharge summary Author [facility] Note Date/Time October 22, 2024 10: 35am [facility] Medical Records Department [address] [place] [address] Emergency Department Summary 10/22/24 MR#: [id number] Acct: [id number] Name: ERLINDA ZAPATA Rep #:[id number] : 1970 54 From: Howard Michelle DO PCP: Dr. Vargas Serra, DO Status:REG ER Location: ED HPI History [...] her last tetanus shot was updated here. [facility] Medical History Wears dentures Wears glasses Depression [...] PRN Mild-M od 12/04/17 Unknown Rx Pain (1-12/12) #30 tabs liothyronine 5 mcg tablet 5 [...] follow commands knew that she was at [facility] 2024 Skin: Small poke from the lancet [...] [facility] She was advised to watch out for [...] obtained today with corporate care. Print Language: Cambodian Disposition Disposition: Home, Self Care What to do if you have Problems For any increased pain, shortness of breath, bleeding, nausea or vomiting, chestpain, or any unexpected problems, contact your Primary Care Provider. Call [facility] ([phone]) or report to the closest Emergency Room. Call 911 if necessary. 10/22/24 1035 <Electronically signed by Howard Michelle DO> Cosigner Signature (if applicable): CC: Dr. Vargas Serra DO ~ Signed [facility] Work Phone: Evaluation + Plan note Future Appointments Appointment Date:03/20/2022 04:00:00 PM Scheduled Provider:VARGAS SERRA DO Location:[facility] Appointment Type:PC Wellness Annual Future Scheduled Tests Radiology* MA Mammo Screening Bilateral w/ Abdirizak 11/16/20 [facility] Evaluation + Plan note Future Appointments Appointment Date:12/14/2021 04:00:00 PM Scheduled Provider:VARGAS SERRA DO Location:[facility] Appointment Type:PC OV Appointment Date:03/20/2022 04:00:00 PM Scheduled Provider:VARGAS SERRA DO Location:[facility] Appointment Type:PC Wellness Annual Future Scheduled Tests Radiology* MA Mammo Screening Bilateral w/ Abdirizak 11/16/20 * MA Mammo Screening Bilateral w/ Abdirizak 11/01/21 [facility] Evaluation + Plan note Future Appointments Appointment Date:08/16/2022 03:45:00 PM Scheduled Provider: Location:[facility] Appointment Type:PC Nurse Immunization Appointment Date:10/03/2022 04:00:00 PM Scheduled Provider:VARGAS SERRA DO Location:[facility] Appointment Type:PC OV Future Scheduled Tests Radiology* MA Mammo Screening Bilateral w/ Abdirizak 11/01/21 * XR Chest 2 Views (PA & Lateral) 06/29/22 [facility] Evaluation + Plan note Future Appointments Appointment Date:02/19/2023 03:30:00 PM Scheduled Provider:VARGAS SERRA DO Location:[facility] Appointment Type: Wellness Annual Future Scheduled Tests Laboratory* Thyroid Stimulating Hormone 07/20/22 * Thyroid Stimulating Hormone 11/28/22 * Free T4 07/20/22 * Free T4 11/28/22 * Free T3 07/20/22 * Free T3 11/28/22 * Lipid Profile 11/28/22 * Complete Metabolic Panel 11/28/22 Radiology* XR Chest 2 Views (PA & Lateral) 06/29/22 [facility] Evaluation + Plan note Future Appointments Appointment Date:09/11/2023 04:00:00 PM Scheduled Provider:VARGAS SERRA DO Location:[facility] Appointment Type:PC OV Appointment Date:10/02/2023 04:00:00 PM Scheduled Provider:VARGAS SERRA DO Location:[facility] Appointment Type:PC OV Future Scheduled Tests Laboratory* Thyroid Stimulating Hormone 07/03/23 * Free T4 07/03/23 * Free T3 07/03/23 [facility] Evaluation + Plan note Future Appointments Appointment Date:08/12/2023 04:00:00 PM Scheduled Provider:RONAK BULL Location: [facility] Appointment Type:WH OV Appointment Date:09/11/2023 04:00:00 PM Scheduled Provider:VARGAS SERRA DO Location:[facility] Appointment Type:PC OV Appointment Date:10/02/2023 04:00:00 PM Scheduled Provider:VARGAS SERRA DO Location:[facility] Appointment Type:PC OV Future Scheduled Tests Laboratory* Thyroid Stimulating Hormone 07/03/23 * Free T4 07/03/23 * Free T3 07/03/23 [facility] Evaluation + Plan note Future Appointments Appointment Date:04/23/2024 04:30:00 PM Scheduled Provider:VARGAS SERRA DO Location:[facility] Appointment Type: Wellness Annual Appointment Date:05/14/2024 04:00:00 PM Scheduled Provider:VARGAS SERRA DO Location:[facility] Appointment Type: Wellness Annual [facility] Evaluation + Plan note Future Appointments Appointment Date:01/26/2025 02:00:00 PM Scheduled Provider:VARGAS SERRA DO Location:[facility] Appointment Type:PC OV Future Scheduled Tests Radiology* MA Mammo Screening Bilateral w/ Abdirizak 12/24/24 [facility] Evaluation + Plan note Future Appointments Appointment Date:05/18/2025 02:30:00 PM Scheduled Provider:VARGAS SERRA DO Location:[facility] Appointment Type:PC Wellness Annual Future Scheduled Tests Laboratory* Thyroid Stimulating Hormone 03/09/25 * Free T4 03/09/25 * Lipid Profile 03/09/25 * Complete Metabolic Panel 03/09/25 Radiology* MA Mammo Screening Bilateral w/ Abdirizak 12/24/24 [facility] Evaluation + Plan note Future Appointments Appointment Date:11/09/2025 04:00:00 PM Scheduled Provider:VARGAS SERRA DO Location:[facility] Appointment Type: OV Future Scheduled Tests Laboratory* Thyroid Stimulating Hormone 08/18/25 * Thyroid Stimulating Hormone 03/09/25 * Free T4 08/18/25 * Free T4 03/09/25 * Free T3 08/18/25 * Lipid Profile 03/09/25 * Complete Metabolic Panel 03/09/25 Radiology* MA Mammo Screening Bilateral w/ Abdirizak 12/24/24 [facility] Evaluatmka noteNo assessment information available [facility] Work Phone: evaluation note* Diagnosis URI with cough and congestion- Primary documented in this encounter [facility] note* Diagnosis Sinobronchitis- Primary Unspecified sinusitis (chronic) documented in this encounter [facility] note* Diagnosis Allergic contact dermatitis due to plants, except food- Primary Contact dermatitis and other eczema due to plants (except food) documented in this encounter [facility] note* Diagnosis Poison sita- Primary Contact dermatitis and other eczema due to plants (except food) documented in this encounter [facility] note* Diagnosis Onset Date Resolution Status Abdominal pain acute Colonic diverticular abscess acute Diverticulitis acute [facility] Work Phone: evaluation note* Diagnosis Onset Date Resolution Status Abdominal pain acute Colonic diverticular abscess acute Diverticulitis acute Colonic diverticular abscess acute [facility] Work Phone: evaluation note* Diagnosis Onset Date Resolution Status Colonic diverticular abscess acute [facility] Work Phone: evaluation note* Diagnosis Degeneration of lumbar or lumbosacral intervertebral disc- Primary documented in this encounter [facility] note* Diagnosis Chronic right-sided low back pain with right-sided sciatica- Primary documented in this encounter [facility] note* Diagnosis Chronic right-sided low back pain with right-sided sciatica documented in this encounter [facility] note* Diagnosis Onset Date Resolution Status Blood in stool acute Left lower quadrant abdominal pain acute [facility] Work Phone: Evaluation note* Diagnosis Onset Date Resolution Status Blood in stool acute Left lower quadrant abdominal pain acute Left lower quadrant abdominal pain acute [facility] Work Phone: Evaluation note* Diagnosis Viral URI with cough- Primary Acute upper respiratory infections of unspecified site [facility] Author Noel Roberts [facility] April 23, 2023 10:41pm Note Date/Time April 23, 2023 10:41pm [facility] Medical Records Department [address] [place] [address] History & Physical Exam 04/23/233 MR#: [id number] Acct: [id number] Name: ERLINDA ATKINS Rep #:[id number] : 1970 53 From: Noel Pimentel PCP: Dr. Vargas Serra, DO Status:ADM IN Location: [facility] HPI - General General Date of Admission: 04/23/23 Date of Service: 04/23/23 Chief Complaint: Abdominal pain with associated constipation HPI Narrative ERLINDA ATKINS, is a 53 F who presents to [facility] with complaints of severe constipation times [...] colonoscopy over 5 years ago through the [facility] outpatient facility. As she recalls the results [...] a prior surgical history of laparoscopic hysterectomy [facility] Medical History Arthritis Arthritis, rheumatoid Fibromyalgia Hypothyroidism Home Medications levothyroxine 112 mcg tablet 125 mcg PO DAILY 06/25/13 [History Last Taken 12/04/17 08:00] omeprazole 20 mg capsule,delayed release 20 mg PO PRN PRN Indigestion 11/27/17 [History Last Taken Unknown] ibuprofen 600 mg tablet 600 mg PO Q6H PRN PRN Mild-Mod Pain (1-12/12) #30 tabs 12/04/17 [Rx Last Taken Unknown] [...] 71.5 H, Lymph % (Auto) 15.9 L, Geneva % (Auto) 9.5, Eos % (Auto) 2.5, [...] Cazares MD at 21:21 EDT , ADDENDUM: 04/23/238 IMPRESSION: Acute sigmoid diverticulitis and probable abscess [...] patient's bladder. Charges/Coding Visit Charges Inpatient E&M: 53215 Init Hosp L2 04/23/23 2241 <Electronically signed by Noel Roberts MD> Cosigner Signature (if applicable): CC: Dr. Vargas Serra DO; Dr. Noel Roberts MD~ Signed [facility] Work Phone: History and physical note Author Noel Roberts [facility] May 28, 2023 10:12am Note Date/Time May 28, 2023 1 0:12am [facility] Medical Records Department [address] [place] [address] History & Physical Exam 05/28/23 1011 MR#: [id number] Acct: [id number] Name: ERLINDA ATKINS Rep #:[id number] : 1970 53 From: Noel Pimentel PCP: Dr. Vargas Serra DO Status:[facility] Location: [facility] AC12-1 History and Physical Date of Admission: 05/28/23 Date of Service: 05/03/23 MR#: [id number] Acct: [id number] Name: ERLINDA ATKINS Rep #: [id number] : 1970 Provider: Dr. 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 Patient [...] above. 05/28/23 1012 <Electronically signed by Noel Roberts MD> Cosigner Signature (if applicable): CC: Dr. Vargas Serra, DO; Dr. Noel Roberts MD~ Signed [facility] Work Phone: Hospital course Narrative No data available for this section [facility] Hospital Discharge instructions No data available for this section [facility] Hospital Discharge instructions Additional Instructions Plenty of fluids and rest. Tylenol and Motrin for pain and body aches and fever. Follow-up with your doctor if not improving.[facility] Work Phone: Hospital Discharge instructions Additional Instructions Follow-up with corporate care as this was a work-related injury. Watch out for signs of infection if this is to occur go to corporate care or return to the emergency department. Your tetanus shot was updated today. Follow-up on the blood tests that were obtained today with corporate care.[facility] Work Phone: Progress note No data available for this section [facility] Reason for referral (narrative)* Diagnostic Procedure Only (Routine) - Pending Review Specialty Diagnoses / Procedures Referred By Cristopher orourke Referred To Contact XR IMAGING Diagnoses Chronic right-sided low back pain with right-sided sciatica Procedures XR LUMBAR MOTION 4V AP/LAT/ FLEX/EXT RADEX SPINE LUMBOSACRAL MINIMUM 4 VIEWS Indira Lagos APRN.CNP [address] [place] [id number] Xr Imaging [facility] Referral ID Status Reason Start Date Expiration Date Visits Requested Visits Authorized [id number] Pending Review Auto-Generat ed Referral 10/01/2023 10/30/2024 1 1 [facility] for referral (narrative)* Diagnostic Procedure Only (Routine) - Closed Specialty Diagnoses / Procedures Referred By Contac t Referred To Contact XR IMAGING Diagnoses Chronic right-sided low back pain with right-sided sciatica Procedures XR LUMBAR MOTION 4V AP/LAT/ FLEX/EXT RADEX SPINE LUMBOSACRAL MINIMUM 4 VIEWS Indira Lagos APRN.CNP [address] [place] [phone] Xr Imaging [facility]95 Referral ID Status Reason Start Date Expiration Date V isits Requested Visits Authorized [id number] Closed Auto-Generate d Referral 10/01/2023 10/30/2024 1 1 [facility] for referral (narrative)No reason for referral information availableWMer[facility] Work Phone: Reason for visit Narrative* Diagnostic Procedure Only (Routine) - Closed Specialty Diagnoses / Procedures Referred By Contac t Referred To Contact XR IMAGING Diagnoses Chronic right-sided low back pain with right-sided sciatica Procedures XR LUMBAR MOTION 4V AP/LAT/ FLEX/EXT RADEX SPINE LUMBOSACRAL MINIMUM 4 VIEWS Indira Lagos APRN.CNP [address] [place] [id number] Xr Imaging [id number] Referral ID Status Reason Start Date Expiration Date V isits Requested Visits Authorized [id number] Closed Auto-Generate d Referral 10/01/2023 10/30/2024 1 1 [facility] Summary Purpose Family History No Family History Records Found Relationship Condition Age at Onset Recorded Date/T vanessa Not Specified Diabetes mellitus Unknown Chronic obstructive pulmonary disease Unk nown Hypertension Unknown Disorder of thyroid Unknown Asthma Unknown Advance Directives No Advanced Directives Records Found Advance Directive Response Recorded Date/ Time Living Will No March 13, 2021 6:31pm Power of Automotive Maintenance Technician No March 13 6:31pm Advance Directive Response Recorded Date/ Time Living Will No June 22 2 022 4:08am Power of Automotive Maintenance Technician No June 22, 2022 4:08am Advance Directive Response Recorded Date/ Time Living Will No June 22 022 5:08am Power of Automotive Maintenance Technician No June 22, 2022 5:08am Advance Directive Response Recorded Date/ Time Living Will No April 23, 2023 7:26pm Power of Automotive Maintenance Technician No April 7:26pm Advance Directive Response Recorded Date/ Time Living Will No April 23, 2023 11:09pm Power of Automotive Maintenance Technician No April 11:09pm Advance Directive Response Recorded Date/ Time Living Will No May 22 3:08pm Power of Automotive Maintenance Technician No May 22, 2023 3:08pm Advance Directive Response Recorded Date/ Time Living Will No June 21 023 3:35pm Power of Automotive Maintenance Technician No June 21, 2023 3:35pm Advance Directive Response Recorded Date/ Time Living Will No October 18, 2023 12:54pm Power of Automotive Maintenance Technician No October 17 24 12:54pm Advance Directive Response Recorded Date/ Time Living Will No October 22, 2024 9:37am Do you have a Healthcare Power of Automotive Maintenance Technician? No October 22, 2024 9:37am Advance Directive Response Recorded Date/ Time Living Will No October 22, 2024 9:37am Do you have a Healthcare Power of Automotive Maintenance Technician? No October 22, 2024 9:37am Do you have a Healthcare Power of Automotive Maintenance Technician? No December 30, 2024 8:54am Advance Directive Response Recorded Date/ Time Do you have a Healthcare Power of Automotive Maintenance Technician? No December 30, 2024 8:54am Chief Complaint [...] 7pm EXPOSURE October 22, 2024 9:0 9am Block, Caudal January 04, 2025 8:03a m Chief Complaint Admit Date Block, Caudal January 04, 2025 8:03a m WAITING ON ORDER February 19, 2025 9:25 am Health Concerns Infection Onset Date Last Indicated Resolved Time COVID-19 Rule-Out 05/07/2022 05/07/2022 Infection Onset Date Last Indicated Resolved Time COVID-19 Rule-Out 05/07/2022 05/07/2022 05/08/2022 8:04 AM EDT Additional Source Comments INFORMATION SOURCE (unrecogn ized section and content) DATE CREATED AUTHOR 01/29/2018 [employer] DATE CREATED AUTHOR AUTHOR'S ORGANIZ ATION 10/27/2023 [facility] ([place]) DATE CREATED AUTHOR AUTHOR'S ORGANIZ ATION 06/18/[address] [facility] DATE CREATED AUTHOR AUTHOR'S ORGANIZ ATION 06/09/[address] [facility] DATE CREATED AUTHOR AUTHOR'S ORGANIZ ATION 06/09/2025 [facility] Reason for Visit (unrecogniz ed section and content) Reason For Visit Description New Complaint Preliminary reason f or visit data, not yet signed by the author as of left shoulder pain Reason Comments Sore Throat Cough, REENA ear [...] Care Team (unrecognized sect ion and content) Cattle Dipper Relationship Specialty Start Date End Date Vargas Serra, [address] [place] [address] PCP - General Family Medicine 09/02/18 Cattle Dipper Relationship Specialty Start Date End Date Vargas Serra DO [address] [place] [address] PCP - General Family Medicine 09/02/18 Team Status: Active Member Role Status Dates Dr. Vargas Serra DO Family Provider Active Dr. Vargas Serra DO Primary Care Provider Active Team Status: Inactive Member Role Status Dates Dr. Vargas Serra DO Primary Care Provider Active Anabel Baca TALENT ACQUISITION PROJECT MANAGER, TALENT ACQUISITION PROJECT MANAGER-C Attending Provider, Referring Pr ovider Active Team [...] Cruz MD Attending Provider, Referring Provider Active Cattle Dipper Relationship Specialty Start Date End Date Vargas Serra DO [address] [place] [address] PCP - General Family Medicine 09/02/18 Cattle Dipper Relationship Specialty Start Date End Date Vargas Serra DO [address] [place] [address] PCP - General Family Medicine 09/02/18 Team [...] Roberts MD Admit Provider, Other Provider Active Rahsmi KAPLAN PA-C Attending Provider Active Team Status: [...] Dr. Heron Xiao MD Attending Provider Active Cattle Dipper Relationship Specialty Start Date End Date Vargas Serra DO [address] [place] [address] PCP - General Family Medicine 09/02/18 Cattle Dipper Relationship Specialty Start Date End Date Vargas Serra DO [address] [place] [address] PCP - General Family Medicine 09/02/18 Cattle Dipper Relationship Specialty Start Date End Date Vargas Serra DO [address] [place] [address] PCP - General Family Medicine 09/02/18 Team [...] MD Attending Provider, Referring P rovider Active Cattle Dipper Relationship Specialty Start Date End Date Vargas Serra DO [address] [place] [address] PCP - [facility] Medicine 09/02/18 Team Status: Inactive Member Role Status Dates Dr. Vargas Serra DO Primary Care Provider Active Dr. Osei Lugo DO Attending Provider, Emergency Provider Active Cattle Dipper Relationship Specialty Start Date End Date Vargas Serra DO [address] [place] [address] PCP - [facility] Family Medicine 09/02/18 Team Status: [...] February 19, 2025 End: February 19, 2025 Team Status: Inactive Member Role/Relationship Status Dates Dr. Vargas Serra DO Primary Care Provider Active Start: March 18, 2025 End: March 18, 2025 Dr. Vargas Serra DO Attending Provider Active Start: March 18, 2025 End: March 18, 2025 Dr. Vargas Serra DO Referring Provider Active Start: March 18, 2025 End: March 18, 2025 Goals (unrecognized section and content) Goals may be documented in a n alternate section Source Comments (unrecognize d section and content) In the event this informatio n is protected by the Federal Confidentiality of Alcohol and Drug Abuse Patient Records regulations: The Federal rules restrict any use of the information to criminally investigate or prosecute any alcohol or drug abuse patient.[facility] the event this information is protected by the Federal Confidentiality of Alcohol and Drug Abuse Patient Records regulations: The Federal rules restrict any use of the information to criminally investigate or prosecute any alcohol or drug abuse patient.[facility] the event this information is protected by the Federal Confidentiality of Alcohol and Drug Abuse Patient Records regulations: The Federal rules restrict any use of the information to criminally investigate or prosecute any alcohol or drug abuse patient.[facility] the event this information is protected by the Federal Confidentiality of Alcohol and Drug Abuse Patient Records regulations: The Federal rules restrict any use of the information to criminally investigate or prosecute any alcohol or drug abuse patient.[facility] the event this information is protected by the Federal Confidentiality of Alcohol and Drug Abuse Patient Records regulations: The Federal rules restrict any use of the information to criminally investigate or prosecute any alcohol or drug abuse patient.[facility] the event this information is protected by the Federal Confidentiality of Alcohol and Drug Abuse Patient Records regulations: The Federal rules restrict any use of the information to criminally investigate or prosecute any alcohol or drug abuse patient.[facility] Hospital[facility] the event this information is protected by the Federal Confidentiality of Alcohol and Drug Abuse Patient Records regulations: The Federal rules restrict any use of the information to criminally investigate or prosecute any alcohol or drug abuse patient.[facility] the event this information is protected by the Federal Confidentiality of Alcohol and Drug Abuse Patient Records regulations: The Federal rules restrict any use of the information to criminally investigate or prosecute any alcohol or drug abuse patient.[facility] the event this information is protected by the Federal Confidentiality of Alcohol and Drug Abuse Patient Records regulations: The Federal rules restrict any use of the information to criminally investigate or prosecute any alcohol or drug abuse patient.[facility] Hospital[facility] the event this information is protected by the Federal Confidentiality of Alcohol and Drug Abuse Patient Records regulations: The Federal rules restrict any use of the information to criminally investigate or prosecute any alcohol or drug abuse patient.[facility] Care Team (unrecognized sect ion and content) Care Team Personnel Name: CYRUS LIANG MD Position: Physician Med Service: Admitting Member Role: Pan Devulcanizer Helper Address: Address: [address] [place] [address]- [place] Name: VARGAS SERRA DO Position: P4 Physician - Primary Care Med Service: Active Provider Member Role: Primary Care Physician Address: Address: [address] [place] [address] Care Team Related Persons Name: ANGEL PFEIFFER Address: Home [address] [place] [address] Care Team Personnel Name: CYRUS LIANG MD Position: Physician Member Role: Pan Devulcanizer Helper Address: Address: [address] [place] [address] [address] [place] [address]- [place] Name: VARGAS SERRA DO Position: P4 Physician - Primary Care Member Role: Primary Care Physician Address: Address: [address] [place] [id number] [place] [address] Care Team Related Persons Name: ANGEL PFEIFFER Address: Home [address] [place], [place] [address] FOR RECORDS PERTAINING TO PATIENTS WHO ARE [...] BE BASED ON THE PRIMARY CLINICAL RECORDS. [facility]. provides no warranty or guarantee of the accuracy or completeness of information in this document.
[2025-07-28 10:15] LABS: Hematocrit 39.7 % (37-47); Hemoglobin 13.2 g/dL (12.0-15.0); Immature Granulocytes Count 0.020 X10^3/uL (0.0-0.0); Mean Corp Hgb Conc 33.2 g/dL (32-36); Mean Corpuscular Volume 93.0 fL (81-99); Mean Platelet Vol. 10.2 fl (6.2-12.0); NRBC Flagged by Analyzer 0 % (0-5); Platelet Count 354 K/mm3 (150-450); RBC Distribution Width CV 12.9 % (11.6-14.6); RBC Distribution Width SD 43.7 fl (35.1-43.9); Red Blood Count 4.27 M/mm3 (4.2-5.4); White Blood Count 6.5 K/mm3 (4.4-11.0)
[2025-07-28 10:39] LABS: AST(SGOT) 18 U/L (<=31); Alanine Aminotransfer ALT/SGPT 21 U/L (<=34); Albumin, Serum 4.5 g/dL (3.5-5.0); Alkaline Phosphatase 69 U/L (35-104); Anion Gap 11 (7-18); BUN 23 mg/dL (4-19); BUN/Creat Ratio 31.7 RATIO (10-20); Calcium,Total 9.7 mg/dL (7.6-11.0); Carbon Dioxide 23.1 mmol/L (20.0-29.0); Chloride 106 mmol/L (96-106); Globulin 2.6 g/dL (2.2-4.2); Glucose 90 mg/dL (70-99); Potassium 4.0 mmol/L (3.5-5.1)
== END | disposition home or self-care (01) ==
LOC: MTLAB 07:14
PROVIDERS: PCP Family Medicine; Referring Provider Internal Medicine Rheumatology; Visit Provider Internal Medicine Rheumatology
DX: M06.079 Rheumatoid arthritis without rheumatoid factor, unspecified ankle and foot (principal); Z79.899 Other long term (current) drug therapy
CPT/HCPCS: 36415; 73521; 80053; 85025